=== PATIENT | male | born 1940 | race Caucasian/White ===

== ENCOUNTER 2018-08-04 13:20 | Outpatient (CLI) | payer BC, SELFPAY ==
[2018-08-05 09:22] LABS: PSA, Diagnostic 0.3 ng/ml (0-6.5)
== END 2018-08-04 13:40 ==
PROVIDERS: PCP Family Medicine; Visit Provider Nurse Practitioner
DX: C61 Malignant neoplasm of prostate (principal)
CPT/HCPCS: 36415; 84153

== ENCOUNTER 2018-08-24 01:17 | Outpatient (CLI) | payer BC, SELFPAY ==
--- NOTE | 2018-08-24 | PFT_ITS ---
PULMONARY FUNCTION TEST REPORT *Please see scanned documents for further information Patient identification - Marleny Martin DATE OF - 1940 DATE OF SERVICE - August 24, 2018 REQUESTING PROVIDER - Edgar Marie M.D. INTERPRETATION OF STUDY Spirometry shows no evidence of obstructive airways disease. No bronchodilator response. LUNG VOLUMES - Lung volumes show mild restriction. DIFFUSION CAPACITY- Normal. AIRWAY RESISTANCE - Normal. IMPRESSION Mild restrictive lung disease. Clinical correlation recommended. Radha Cantu M.D. MARION/honorio T - 08/26/2018 SEE SCANNED DOCUMENT IN THE EMR FOR DATA AND GRAPHS
[2018-08-24] MEDS: Albuterol HFA 18 GM 200 PUFF INH IH (10:58)
[2018-08-24] MEDS: Inhaler, Assist Device 1 EACH MC (10:58)
== END 2018-08-24 01:37 ==
PROVIDERS: PCP Family Medicine; Visit Provider Family Medicine
DX: J44.9 Chronic obstructive pulmonary disease, unspecified (principal)
CPT/HCPCS: 94060; 94150; 94726; 94729

== ENCOUNTER 2018-09-03 12:44 | Outpatient (CLI) | payer BC, OTHER, SELFPAY ==
--- NOTE | 2018-09-03 13:06 | HPE_ITS ---
Assessment and Plan (1) Right carpal tunnel syndrome: Current visit: Yes Status: Acute Plan: Reviewed surgery including surgical technique, recovery, benefits and risks including but not limited to risk of infection, blood clots, damage to soft tissue/nerves/blood vessels. After discussion of risks patient elects to continue with scheduling surgery. Educated patient if he develops worsening phlegm symptoms or if develops additional symptoms he should call the orthopedic office. At current physical presentation patient will continue to be scheduled for right ECTR with Dr. Pratt on September 09, 2018. Mr. Martin is a 78-year-old male who presents to clinic for his preoperative visit for his scheduled right ECTR with Dr. Pratt on September 09, 2018. He is right-hand dominant. Patient reports for the last year he has experienced constant right hand numbness which is located in the thumb, index finger, middle finger and the radial half of the ring finger. Patient also reports that he occasionally has a tingling pain that shoots from his wrist up through these fingers. He has tried daytime and nighttime bracing which provides mild relief of the tingling for the last 6 months. His symptoms are progressing and he has started to drop objects and has difficulty using utensils to eat. Patient also reports he is having difficulty doing other activities he enjoys such as being unable to bowl due to extreme tingling elicited when holding the bowling ball. Patient also reports he had bilateral hand tightness of the joints which typically resolves within minutes. He has had this symptom for the last 3-4 years but his right hand tightness has improved since he started wearing the brace. He denies any nighttime tingling sensation causing him to wake up. Patient has not had a nerve conduction study. Patient does report one injury occurring greater than 10 years ago when his grandson was trying to scale the roof he fell backwards and Marleny caught him which resulted in his hand being crushed by the weight. Patient went to the ER for the pain and was told he had a hairline fracture in his right side, he is unable to recall if the fracture was in the hand or wrist. Pertinent Surgical Information Discussed current productive cough with yellow sputum and wheeze with patient in detail. Symptoms have been ongoing for the past 4 days. Review of patient' s primary care chart shows patient has restrictive lung disease with basilar rails at baseline for many years. His recent PFTs from August 24, 2018 show mild restrictive lung disease. Patient does report he has occasional dry cough at baseline. Throughout review of systems he denies any other associated symptoms. Although patient likely has a viral cold his symptoms were discussed with anesthesia. Upon discussion with anesthesia patient will continue to be scheduled for right ECTR unless develops worsening symptoms or additional symptoms. As per patient chart has listed allergy to ATUL inhibitors, however he denies any known allergies to medication. Denies past medical history of: stroke, cardiac issues, angina, asthma, sleep apnea, liver issues, hepatitis, gastrointestinal issues, ulcers, hyperlipidemia , seizures, migraines, anxiety, depression, diabetes, autoimmune disorders, thyroid issues Denies prior complications from surgery or anesthesia. Review of Systems Constitutional Denies fever(s), Denies frequent falls and Denies headache(s) Eyes Denies change in vision ENT Denies ear discharge, Denies otalgia, Denies headache(s), Denies epistaxis, Denies nasal congestion, Denies nasal discharge, Denies sinus pressure and Denies sore throat Cardiovascular Denies chest pain, Denies rapid heart rate, Denies irregular heart rhythm, Denies dyspnea, Denies dyspnea on exertion and Denies slow heart rate Respiratory Reports cough, Reports excessive phlegm production (Yellow), Denies pain with cough, Denies dyspnea, Denies dyspnea on exertion and Reports wheezing Gastrointestinal Denies abdominal pain, Denies melena, Denies hematochezia, Denies constipation, Denies diarrhea, Denies nausea and Denies vomiting Genitourinary Denies hematuria, Denies dysuria and Denies urinary urgency Musculoskeletal Reports as per HPI, Reports numbness and Reports tingling Neurologic Denies frequent falls, Denies headache(s), Reports numbness and Reports tingling Psychiatric Denies anxiety and Denies depression Allergic/Immunologic Reports wheezing PFSH Family History Mother No problems noted. Father Cardiovascular disease Brother No problems noted. Medical History Right carpal tunnel syndrome (Acute) History of prostate cancer (Chronic) CKD (chronic kidney disease), stage III (Chronic) Thrombocytopenia (Chronic) Rales (Chronic) Restrictive lung disease (Chronic) Hypertension (Chronic) Social History marital status: current occupational status: employed current occupation: [employer] Smoking/Tobacco Use Status: Never alcohol intake: former year quit: 1994 substance use type: does not use Surgical History S/P radiation therapy (Resolved) Meds Home Medications Medication Instructions Recorded Confirmed Type aspirin 81 mg PO DAILY tab-cap 02/25/17 09/03/18 History losartan 100 mg PO DAILY tab-cap 02/25/17 09/03/18 History magnesium oxide 250 mg PO DAILY AM 02/25/17 09/03/18 History omeprazole 20 mg PO DAILY tab-cap 02/25/17 09/03/18 History albuterol sulfate [ProAir HFA] 2 puff INHALATION Q6H PRN inhaler 04/03/1709/03 History acetaminophen [Tylenol Extra 1,000 mg PO Q6H PRN 09/03/18 09/03/18 History Strength] calcium carbonate-vitamin D3 1 cap PO DAILY 09/03/18 09/03/18 History [Calcium 600 + D(3)] Allergies Allergy/AdvReac Type Severity Reaction Status Date / Time No Known Allergies Allergy Unverified 09/03/18 15:51 Exam Const General: cooperative and no acute distress HENMT Head: normal to inspection, normocephalic and atraumatic Ears: external ears normal General nose exam: external nose normal and no nasal discharge Face and sinus: face symmetric Mouth: oral mucosae normal, lip normal, tongue normal and moist mucous membranes Teeth and gingiva: dentition normal Throat: posterior oropharynx normal Eyes General: appearance normal, both eyes and all related structures Pupils: PERRL EOM: EOM intact bilaterally Neck Neck: trachea midline Carotids: normal carotid upstroke Lymphatic: no lymphadenopathy noted Resp Effort & Inspection: normal respiratory effort, able to speak in complete sentences and no nasal flaring Auscultation: not clear to auscultation bilaterally, rales (Noted on posterior aspect of chest) bilaterally, no rhonchi and wheezes Cardio Heart Sounds: S1 normal, S2 normal, no murmurs, no rubs and no other Pulses: radial pulses present bilaterally GI Palpation: soft, no hepatosplenomegaly and nontender Auscultation: normal bowel sounds Skin General skin exam: no rashes or lesions noted Extrem Other: Right hand examination: Thenar atrophy is noted on right compared to contralateral side. Decreased sensation to light touch in median nerve distribution. Decreased strength with thumb to index finger opposition compared to contralateral side . Compression of median nerve for 60 seconds elicited tingling in median nerve distribution. Phalen's test did not elicit tingling. Tinel's sign elicited tingling symptoms. Motor function ulnar nerve intact to contralateral side.
== END 2018-09-03 13:04 ==
PROVIDERS: PCP Family Medicine; Visit Provider Orthopaedic Surgery
DX: G56.01 Carpal tunnel syndrome, right upper limb (principal); Z01.818 Encounter for other preprocedural examination
CPT/HCPCS: NC

== ENCOUNTER 2018-09-09 13:31 | Day surgery (SDC) | payer BC, OTHER, SELFPAY ==
[2018-09-09 14:00] VITALS: BP 148/78; PULSE 73; RESP 18; TEMP 36.8; O2SAT 96
[2018-09-09] MEDS: Lactated Ringers 1,000 ML 80 ML IV (14:30)
--- NOTE | 2018-09-09 16:43 | PDOC.DSDIS_ITS ---
Discharge Plan Disposition Patient Disposition: HOME Condition: Good Discharge Details Reason For Visit: (R) CTS Attending Provider: Mart Pratt Primary Care Provider: Edgar Marie Home Meds and New Rx's Prescriptions: Continue losartan 50 MG tablet 100 mg PO DAILY RF: 0 omeprazole 20 MG capsule,delayed release(DR/EC) 20 mg PO DAILY RF: 0 aspirin 81 MG tablet,chewable 81 mg PO DAILY RF: 0 magnesium oxide 250 MG tablet 250 mg PO DAILY AM RF: 0 albuterol sulfate [ProAir HFA] 8.5 GM HFA aerosol inhaler 2 puff Inhalation Q6H PRN RF: 0 calcium carbonate-vitamin D3 [Calcium 600 + D(3)] 600 mg calcium- 200 unit Capsule 1 cap PO DAILY RF: 0 acetaminophen [Tylenol Extra Strength] 500 mg Tablet 1,000 mg PO Q6H PRNRF: 0 Discharge Instructions Additional Instructions: Elevate R hand above heart level as much as possible overnite tonite. Wiggle fingers R hand 10 times/hour when awake to prevent swelling. Your fingers may stay numb for 24 hours due to nerve block I put in to decrease post-op pain. Remove splint AND dressings after 48 hours and begin to move R wrist. May shower or bathe and get incision wet after you remove dressings. Leave incision uncovered when it is dry and sealed. Use R hand as much as your discomfort allows. Take tylenol or ibuprofen for pain, if needed. Return to 's office in 10-14 days. Referrals: Mart Pratt MD [ [facility] STAFF PHYSICIAN] - (F/U in 10-14 days. Call 's office tomorrow to make appointment.) Equipment/Supplies: Splint Activity:: Activity as Tolerated Remove Dressings/Wound Care:: 48 hours Shower/Bathe:: 48 hours Diet:: As Tolerated Discharge Orders Discharge Orders: Discharge Order (Routine); Ordered 09/09/18 Ordered By: Mart Pratt DS: Diagnosis Discharge Diagnosis (1) Right carpal tunnel syndrome: Start date: 09/09/18 Start time: 16:43 Status: Acute
[2018-09-09 17:15] VITALS: BP 159/76; PULSE 76; RESP 18; TEMP 36.6; O2SAT 96
--- NOTE | 2018-09-09 21:34 | ROE_ITS ---
DATE OF PROCEDURE: September 09, 2018 PREOPERATIVE DIAGNOSIS: Carpal tunnel syndrome, right. POSTOPERATIVE DIAGNOSIS: Carpal tunnel syndrome, right. PROCEDURE: Endoscopic carpal tunnel release on the right. SURGEON: Mart Pratt M.D. ANESTHESIA: IV regional. INDICATIONS: This is a 78-year-old white male who has severe carpal tunnel syndrome on the right of many months' duration. He has developed significant thenar atrophy. Carpal tunnel release was recom mended to prevent progression of his thenar weakness and to alleviate his pain and numbness in the me ricarda nerve distribution of the right hand. The risks and complications of the procedure were explain ed to the patient in detail preoperatively. PROCEDURE: The patient was taken to the Operating Room on 09/09/18 and placed supine on the operatin g table. IV regional anesthesia was administered to the right upper extremity. Once good anesthesia was obtained, the right hand, wrist, and forearm were prepped and draped free in the usual sterile f ashion. A transverse incision was made in line with the proximal flexion crease of the wrist, beginning at th e flexor carpi radialis and extending to the flexor carpi ulnaris. The incision was carried down int o the fascia and the subcutaneous veins were cauterized. A distally-based fascial flap was raised to gain access to the carpal canal. A synovial reflector was then used to free up any adhesions to the undersurface of the volar carpal l igament. A series of obturators were inserted to make room for the endoscope. The Tutu endoscope bl shilo device was then inserted into the carpal canal and advanced until the distal edge of the volar ca rpal ligament was clearly visualized. At this point the trigger was depressed, elevating the blade, and the elevated blade was brought out from distal to proximal through the incision, transecting the volar carpal ligament and decompressing the median nerve. Littler scissors were then used to perform a subcu fasciotomy for a distance of about 2 inches proximal to the incision. The patient was noted to have an abnormal distal flexor muscle in the wrist. At this point, the wound margins were infiltrated with 0.5% Marcaine with epinephrine solution and a median nerve block was performed with 0.5% Marcaine with epinephrine solution for postoperative analg esia. The skin edges were approximated with two horizontal mattress sutures of #4-0 nylon suture mat erial. The wound was dressed with Xeroform gauze, sterile gauze 4x4s, wrapped with a 4-inch Kerlix b andage, and then wrapped with a 3-inch Dwayne bandage. A commercial cock-up splint was applied over the dressings. The patient's IV regional anesthesia was reversed without complications. He was dischar ged to Recovery in good condition. The patient was discharged home from the Day Surgery Unit when fully recovered from his IV regional a nesthesia. He was given instructions to elevate his right hand above heart level as much as possible overnight tonight. 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 He is encoura ged to wiggle his fingers 10 times an hour while awake to prevent stiffness and swelling. He is to r emove his dressings and splint and begin to move his right wrist after 48 hours. He may shower or ba the and get his incision wet after 48 hours. He may use his right hand as much as discomfort allows. He is to leave the incision uncovered when it is dry and sealed. He will take Tylenol or ibuprofen for pain if needed. He will follow up in Dr. Pratt's office in 10 to 14 days.
== END 2018-09-09 17:28 | disposition home or self-care (01) ==
PROVIDERS: PCP Family Medicine; Visit Provider Orthopaedic Surgery
PROC: 01N54ZZ Release Median Nerve, Percutaneous Endoscopic Approach (ICD-10-PCS; CPT 29848; principal; 2018-09-09 16:00)
DX: G56.01 Carpal tunnel syndrome, right upper limb (principal)
CPT/HCPCS: 29848; J0690; L3908

== ENCOUNTER 2019-01-26 15:09 | Outpatient (CLI) | payer BC, OTHER, SELFPAY ==
[2019-01-26 15:31] LABS: HCT 34.8 % (40.0-50.0); HGB 11.5 g/dL (13.5-17.5); Mean Corpuscular Volume 87.7 fL (80-95); Mean Platelet Volume 11.1 fL (8.0-11.0); RBC 3.97 m/cumm (4.50-6.00); RBC Distribution Width 13.4 % (11.8-14.1); White Blood Cell Count 4.21 k/cumm (4.4-10.8)
[2019-01-26 15:45] LABS: Platelet Count 92 x1000/uL (130-400)
[2019-01-26 17:33] LABS: ALT 32 U/L (12-78); AST 26 U/L (15-37); Alkaline Phosphatase 141 U/L (46-116); Anion Gap 10.8 mmol/L (3-11); BUN 17 mg/dL (7-18); Bilirubin, Total 0.4 mg/dL (0.2-1.0); CO2 23.2 mmol/L (21.0-32.0); CREATININE 1.47 mg/dL (0.70-1.30); Calcium 8.5 mg/dL (8.5-10.1); Chloride 105 mmol/L (98-107); Estimated GFR 46.57 (mL/min/1.73m2); Glucose 155 mg/dL (70-100); Sodium 139 mmol/L (136-145); Total Protein 8.1 g/dL (6.4-8.2); Vitamin B12 466 pg/mL (193-986)
[2019-01-26 18:07] LABS: PHOSPHORUS 2.6 mg/dL (2.6-4.7)
[2019-01-27 10:28] LABS: Parathyroid Hormone,Intact 78 pg/ml (19-88)
== END 2019-01-26 15:29 ==
PROVIDERS: PCP Family Medicine; Visit Provider Family Medicine
DX: D69.6 Thrombocytopenia, unspecified (principal); I10 Essential (primary) hypertension; N18.3 Chronic kidney disease, stage 3 (moderate)
CPT/HCPCS: 36415; 80053; 85027; 82607; 83735; 83970; 84100

== ENCOUNTER 2019-02-11 17:01 | Inpatient (IN) | payer BC, OTHER, SELFPAY ==
[2019-02-11] VITALS (29 sets, daily range): BP systolic 127–146; BP diastolic 57–73; PULSE 84–124; RESP 16–37; TEMP 36.7–38.5; O2SAT 93–98
--- NOTE | 2019-02-11 17:28 | DI.RAD_ITS ---
SYMPTOM/DIAGNOSIS: COUGH, WHEEZE, CRACKLES, FEVER FRONTAL AND LATERAL CHEST: Comparison is made with 01/21/18. There is poor inspiration. Heart size and pulmonary vasculature appear stable. There are chronic interstitial changes in the lungs, particularly on the right. There do however appear to be increased lung markings, particularly in the mid and lower lobes, left greater than right when compared to the prior examination. No effusions or pneumothoraces are identified. Stable degenerative changes are seen in the spine. IMPRESSION: Bilateral pulmonary infiltrates. This may in part be due to the low lung volumes but atelectasis or pneumonia cannot be excluded. Please correlate clinically.
--- NOTE | 2019-02-11 17:41 | W.ED.GENAD ---
Discharge Plan Disposition Patient Disposition: [facility] INPATIENT Condition: Stable Discharge Details Chief Complaint: RespSymp Clinical Impression: Community acquired pneumonia, Fever Admit Date/Time: 02/11/19 19:44 Admit Provider: Dominick Rodgers Attending Provider: Dominick Rodgers Primary Care Provider: Edgar Marie ED Provider: Saúl Parikh Discharge Data Discharge Date/Time-TO BE ENTERED AT DEPARTURE: 02/11/19 20:26 Medical Decision Making This is a 78-year-old male with past medical history of chronic kidney disease and COPD who presents today for evaluation of cough for the last week, he states that it is been non- productive, he denies any fever, chills, chest pain, or shortness of breath. He denies any other complaints. Physical exam demonstrates mild wheeze throughout with minimal crackles. Initial temperature was normal however on palpation he felt warm and we did get an oral which revealed a temperature of 38.5. Oxygen saturations are 93% with mild to moderate effort breathing. Initial heart rate was in the 120s, however he came down actually to 106. We will start some IV fluids and rehydrate. I am concern for potential community-acquired pneumonia, we will evaluate with chest x-ray labs and blood cultures. The patient has no clinically historical risk factors for pulmonary embolism, and with no pleuritic chest pain or chest pain at all, feel that PE is less likely. Feel infectious etiology is more likely concerning component. Patient's x-ray has returned, and on my inspection there is evidence of bilateral pulmonary infiltrates. Virtual radiology report is read as negative, however with the patient's clinical presentation and my described findings I am concerned that he is suffering from infectious pneumonia. We will start him on Rocephin and azithromycin. I did contact Dr. Rodgers and discussed the case with him. He agrees with the current assessment and plan. The patient will be admitted to [facility]. I have extensively reviewed the treatment plan with the patient. I have addressed all patient concerns at this time. I have also discussed the plan with the admitting physician and they agree with the current assessment and plan and have agreed to assume responsibility for the patient. All parties demonstrate verbal understanding and agreement with our assessment and plan at this time. Follow-up and read by our in-house radiologist has returned positive for bilateral pulmonary infiltrates. EKG 17: 30 Rate 113, IA 134, QTc 411, QRS 82, sinus tachycardia, no significant ST elevations or depressions, no T wave inversions FRONTAL AND LATERAL CHEST: Comparison is made with 01/21/18. There is poor inspiration. Heart size and pulmonary vasculature appear stable. There are chronic interstitial changes in the lungs, particularly on the right. There do however appear to be increased lung markings, particularly in the mid and lower lobes, left greater than right when compared to the prior examination. No effusions or pneumothoraces are identified. Stable degenerative changes are seen in the spine. IMPRESSION: Bilateral pulmonary infiltrates. This may in part be due to the low lung volumes but atelectasis or pneumonia cannot be excluded. Please correlate clinically. HPI General Date/Time Provider Initiated Documentation: 02/11/19 17:19. HPI Narrative: This is a 78-year-old male with a past medical history of COPD, chronic kidney disease, who presents today for evaluation of cough for the last week, the cough is dry nonproductive peer he denies any chest pain, shortness of breath or pleuritic chest pain. He denies any fever or chills at home. He denies any nausea vomiting or diarrhea. He has been able to eat and drink well. He denies any headache, neck pain, abdominal pain. He denies any recent antibiotics, or any recent inpatient admission. Denies PE risk factors such as recent long car rides, immobilization, recent surgery, prior history of DVT or PE, family history of PE or DVT, morbid obesity, exogenous estrogen and smoking, hemoptysis, history of cancer. Related Data Home Medications Medication Instructions Recorded Confirmed aspirin 81 mg PO DAILY tab-cap 02/25/17 02/11/19 losartan 100 mg PO DAILY tab-cap 02/25/17 02/11/19 magnesium oxide 250 mg PO DAILY AM 02/25/17 02/11/19 omeprazole 20 mg PO DAILY tab-cap 02/25/17 02/11/19 albuterol sulfate [ProAir HFA] 2 puff INHALATION Q6H PRN inhaler 04/03/17 02/11/19 Calcium 600 + D(3) 1 cap PO DAILY 09/03/18 02/11/19 acetaminophen [Tylenol Extra 1,000 mg PO Q6H PRN 09/03/18 02/11/19 Strength] Allergies Allergy/AdvReac Type Severity Reaction Status Date / Time No Known Allergies Allergy Verified 02/11/19 17:11 General Stated Complaint: RespSymp MANGO: 3 Review of Systems Review of Systems All systems reviewed & are unremarkable except as noted in HPI and below PFSH Medical History History of prostate cancer (Chronic) CKD (chronic kidney disease), stage III (Chronic) Thrombocytopenia (Chronic) Rales (Chronic) Restrictive lung disease (Chronic) Hypertension (Chronic) Right carpal tunnel syndrome (Resolved) Surgical History S/P radiation therapy (Resolved) S/P endoscopic carpal tunnel release (Resolved 09/09/18) Family History Mother No problems noted. Father Cardiovascular disease Brother No problems noted. Social History Smoking/Tobacco Use Status: Never Alcohol Intake: former Year quit: 1994 Drug use: Never Substance use type: does not use current occupation: [employer] Do you feel safe in your relationship?: Yes Exam Narrative Exam Narrative: 1.Const: Well-nourished, Well-developed, appearing stated age 2.Eyes: PERRL, no conjunctival injection, and symmetrical lids. 3.ENT: Atraumatic external nose and ears. Moist MM. Neck: Symmetric, trachea midline, No thyromegaly. Patient demonstrates good movement of cervical neck. There is no nuchal rigidity, no nuchal tenderness. Patient is able to flex the neck without any difficulty or significant pain. Negative Kernig's and Brudzinski sign. 4.CVS: +S1/S2, No murmurs or gallops. Peripheral pulses 2+ and equal in all extremities. Brisk capillary refill in all extremities. 5.RESP: Unlabored respiratory effort. Wheezes and crackles in the bases. Slight decreased lung sounds throughout. 6.GI: Soft, Nontender/Nondistended, No hepatosplenomegaly. No guarding or rebound. 7.MSK: Normocephalic/Atraumatic, Extremities w/o deformity or ttp No cyanosis or clubbing, Normal movement of all extremities, no calf tenderness. 8.Skin: Warm, Dry. No rashes or lesions. 9.Neuro: flaker tender II-XII grossly intact. Sensation grossly intact, no focal neurologic deficits. 10.Psych: (AAO) x3. Appropriate mood and affect Course Vital Signs Temperature 37.5 C 02/11/19 17:08 Pulse 124 H 02/11/19 17:08 Respiratory Rate 16 02/11/19 17:08 Blood Pressure 132/63 02/11/19 17:08 Pulse Oximetry 93 L 02/11/19 17:08 Temperature 37.5 C 02/11/19 17:08 Temperature Source Skin 02/11/19 17:08 Pulse 124 H 02/11/19 17:08 Respiratory Rate 16 02/11/19 17:08 Respiratory Effort 02/11/19 17:17 Blood Pressure 132/63 02/11/19 17:08 Blood Pressure Position Sitting 02/11/19 17:08 Pulse Oximetry 93 L 02/11/19 17:08 Oxygen Delivery Method Room Air 02/11/19 17:08 Oxygen Flow Rate 0 02/11/19 17:08 Lab/Test Results Lab/Test Results: 02/11/19 17:28 Blood Blood Culture - Pending 02/11/19 17:28 Blood Blood Culture - Pending
--- NOTE | 2019-02-11 17:50 | ED.GENADUL_ITS ---
Discharge Plan Disposition Patient Disposition: [facility] INPATIENT Condition: Stable Discharge Details Chief Complaint: RespSymp Clinical Impression: Community acquired pneumonia, Fever Admit Date/Time: 02/11/19 19:44 Admit Provider: Dominick Rodgers Attending Provider: Dominick Rodgers Primary Care Provider: Edgar Marie ED Provider: Saúl Parikh Discharge Data Discharge Date/Time-TO BE ENTERED AT DEPARTURE: 02/11/19 20:26 Medical Decision Making This is a 78-year-old male with past medical history of chronic kidney disease and COPD who presents today for evaluation of cough for the last week, he states that it is been non- productive, he denies any fever, chills, chest pain, or shortness of breath. He denies any other complaints. Physical exam demonstrates mild wheeze throughout with minimal crackles. Initial temperature was normal however on palpation he felt warm and we did get an oral which revealed a temperature of 38.5. Oxygen saturations are 93% with mild to moderate effort breathing. Initial heart rate was in the 120s, however he came down actually to 106. We will start some IV fluids and rehydrate. I am concern for potential community-acquired pneumonia, we will evaluate with chest x-ray labs and blood cultures. The patient has no clinically historical risk factors for pulmonary embolism, and with no pleuritic chest pain or chest pain at all, feel that PE is less likely. Feel infectious etiology is more likely concerning component. Patient's x-ray has returned, and on my inspection there is evidence of bilateral pulmonary infiltrates. Virtual radiology report is read as negative, however with the patient's clinical presentation and my described findings I am concerned that he is suffering from infectious pneumonia. We will start him on Rocephin and azithromycin. I did contact Dr. Rodgers and discussed the case with him. He agrees with the current assessment and plan. The patient will be admitted to [facility]. I have extensively reviewed the treatment plan with the patient. I have addressed all patient concerns at this time. I have also discussed the plan with the admitting physician and they agree with the current assessment and plan and have agreed to assume responsibility for the patient. All parties demonstrate verbal understanding and agreement with our assessment and plan at this time. Follow-up and read by our in-house radiologist has returned positive for bilateral pulmonary infiltrates. EKG 17: 30 Rate 113, [place] 134, QTc 411, QRS 82, sinus tachycardia, no significant ST elevations or depressions, no T wave inversions FRONTAL AND LATERAL CHEST: Comparison is made with 01/21/18. There is poor inspiration. Heart size and pulmonary vasculature appear stable. There are chronic interstitial changes in the lungs, particularly on the right. There do however appear to be increased lung markings, particularly in the mid and lower lobes, left greater than right when compared to the prior examination. No effusions or pneumothoraces are identified. Stable degenerative changes are seen in the spine. IMPRESSION: Bilateral pulmonary infiltrates. This may in part be due to the low lung volumes but atelectasis or pneumonia cannot be excluded. Please correlate clinically. HPI General Date/Time Provider Initiated Documentation: 02/11/19 17:19 . HPI Narrative: This is a 78-year-old male with a past medical history of COPD, chronic kidney disease, who presents today for evaluation of cough for the last week, the cough is dry nonproductive peer he denies any chest pain, shortness of breath or pleuritic chest pain. He denies any fever or chills at home. He denies any nausea vomiting or diarrhea. He has been able to eat and drink well. He denies any headache, neck pain, abdominal pain. He denies any recent antibiotics, or any recent inpatient admission. Denies PE risk factors such as recent long car rides, immobilization, recent surgery, prior history of DVT or PE, family history of PE or DVT, morbid obesity, exogenous estrogen and smoking, hemoptysis, history of cancer. Related Data Home Medications Medication Instructions Recorded Confirmed aspirin 81 mg PO DAILY tab-cap 02/25/17 02/11/19 losartan 100 mg PO DAILY tab-cap 02/25/17 02/11/19 magnesium oxide 250 mg PO DAILY AM 02/25/17 02/11/19 omeprazole 20 mg PO DAILY tab-cap 02/25/17 02/11/19 albuterol sulfate [ProAir HFA] 2 puff INHALATION Q6H PRN inhaler 04/03/17 02/11/19 Calcium 600 + D(3) 1 cap PO DAILY 09/03/18 02/11/19 acetaminophen [Tylenol Extra 1,000 mg PO Q6H PRN 09/03/18 02/11/19 Strength] Allergies Allergy/AdvReac Type Severity Reaction Status Date / Time No Known Allergies Allergy Verified 02/11/19 17:11 General Stated Complaint: RespSymp MANGO: 3 Review of Systems Review of Systems All systems reviewed & are unremarkable except as noted in HPI and below PFSH Medical History History of prostate cancer (Chronic) CKD (chronic kidney disease), stage III (Chronic) Thrombocytopenia (Chronic) Rales (Chronic) Restrictive lung disease (Chronic) Hypertension (Chronic) Right carpal tunnel syndrome (Resolved) Surgical History S/P radiation therapy (Resolved) S/P endoscopic carpal tunnel release (Resolved 09/09/18) Family History Mother No problems noted. Father Cardiovascular disease Brother No problems noted. Social History Smoking/Tobacco Use Status: Never Alcohol Intake: former Year quit: 1994 Drug use: Never Substance use type: does not use current occupation: [employer] Do you feel safe in your relationship?: Yes Exam Narrative Exam Narrative: 1.Const: Well-nourished, Well-developed, appearing stated age 2.Eyes: PERRL, no conjunctival injection, and symmetrical lids. 3.ENT: Atraumatic external nose and ears. Moist MM. Neck: Symmetric, trachea midline, No thyromegaly. Patient demonstrates good movement of cervical neck. There is no nuchal rigidity, no nuchal tenderness. Patient is able to flex the neck without any difficulty or significant pain. Negative Kernig's and Brudzinski sign. 4.CVS: +S1/S2, No murmurs or gallops. Peripheral pulses 2+ and equal in all extremities. Brisk capillary refill in all extremities. 5.RESP: Unlabored respiratory effort. Wheezes and crackles in the bases. Slight decreased lung sounds throughout. 6.GI: Soft, Nontender/Nondistended, No hepatosplenomegaly. No guarding or rebound. 7.MSK: Normocephalic/Atraumatic, Extremities w/o deformity or ttp No cyanosis or clubbing, Normal movement of all extremities, no calf tenderness. 8.Skin: Warm, Dry. No rashes or lesions. 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 Sensation grossly intact, no focal ne urologic deficits. 10.Psych: (AAO) x3. Appropriate mood and affect Course Vital Signs Temperature 37.5 C 02/11/19 17:08 Pulse 124 H 02/11/19 17:08 Respiratory Rate 16 02/11/19 17:08 Blood Pressure 132/63 02/11/19 17:08 Pulse Oximetry 93 L 02/11/19 17:08 Temperature 37.5 C 02/11/19 17:08 Temperature Source Skin 02/11/19 17:08 Pulse 124 H 02/11/19 17:08 Respiratory Rate 16 02/11/19 17:08 Respiratory Effort 02/11/19 17:17 Blood Pressure 132/63 02/11/19 17:08 Blood Pressure Position Sitting 02/11/19 17:08 Pulse Oximetry 93 L 02/11/19 17:08 Oxygen Delivery Method Room Air 02/11/19 17:08 Oxygen Flow Rate 0 02/11/19 17:08 Lab/Test Results Lab/Test Results: 02/11/19 17:28 Blood Blood Culture - Pending 02/11/19 17:28 Blood Blood Culture - Pending
[2019-02-11 17:57] LABS: Lactate-non-spesis 1.7 mmol/l (0.6-1.4)
[2019-02-11 17:58] LABS: Abs Immature Grans 0.01 k/cumm (0.0-0.09); Absolute Basophil Count 0.02 k/cumm (0.0-0.2); Absolute Eosinophil Count 0.07 k/cumm (0.0-0.7); Absolute Lymphocyte Count 0.34 k/cumm (1.2-3.4); Absolute Monocyte Count 0.29 k/cumm (0.11-0.7); Absolute Neutrophil Count 3.46 k/cumm (1.2-6.7); Basophils % 0.5; Eosinophils % 1.7; HCT 34.6 % (40.0-50.0); HGB 11.3 g/dL (13.5-17.5); Immature Grans % 0.2; Lymphocytes % 8.1; Mean Corp. HGB Concentration 32.7 g/dL (32.0-36.0); Mean Corpuscular Hemoglobin 28.3 pg (27.0-33.0); Mean Corpuscular Volume 86.5 fL (80-95); Mean Platelet Volume 11.4 fL (8.0-11.0); Monocytes % 6.9; Neutrophils % 82.6; RBC Distribution Width 13.4 % (11.8-14.1); White Blood Cell Count 4.19 k/cumm (4.4-10.8)
[2019-02-11 18:10] LABS: Platelet Count 91 x1000/uL (130-400)
[2019-02-11] MEDS: Acetaminophen 500 MG TAB 1000 MG PO (18:16)
[2019-02-11] MEDS: Albuterol/Ipratropium 3 ML UPD VIAL UPD (18:17)
[2019-02-11] MEDS: Normal Saline 1,000 ML 1000 ML IV (18:20)
[2019-02-11] MEDS: methylPREDNISolone SUCC 125 MG VIAL IVP (18:21)
[2019-02-11 18:22] LABS: ALT 42 U/L (12-78); AST 43 U/L (15-37); Alkaline Phosphatase 155 U/L (46-116); Anion Gap 13.3 mmol/L (3-11); BUN 20 mg/dL (7-18); Bilirubin, Total 0.6 mg/dL (0.2-1.0); CO2 22.7 mmol/L (21.0-32.0); CREATININE 1.63 mg/dL (0.70-1.30); Calcium 8.2 mg/dL (8.5-10.1); Chloride 103 mmol/L (98-107); Estimated GFR 41.34 (mL/min/1.73m2); Glucose 130 mg/dL (70-100); Potassium 3.9 mmol/L (3.5-5.1); Sodium 139 mmol/L (136-145); TSH (W/Ref FT4) 1.57 uIU/mL (0.358-3.74); Total Protein 8.7 g/dL (6.4-8.2)
[2019-02-11 18:42] LABS: Troponin I < 0.02 ng/mL (0.00-0.06)
--- NOTE | 2019-02-11 19:29 | DI.VRAD_ITS ---
EXAM: XR Chest, 2 Views EXAM DATE/TIME: 02/11/2019 5:30 PM CLINICAL HISTORY: 78 years old, male; Signs and symptoms; Cough and wheezing TECHNIQUE: Imaging protocol: XR of the chest, 2 views. COMPARISON: CR CHEST 2 VIEWS PA,LAT 01/21/2018 6:16 PM FINDINGS: Lungs: MID to lower lung zone interstitial thickening appears slightly more prominent than on the previous study, which could be related to a slight decrease in lung volumes. No new deb air space consolidation to suggest pneumonia. Pleural space: No pleural effusion. No pneumothorax. Heart/Mediastinum: No cardiomegaly. Bones/joints: No acute fracture. IMPRESSION: 1. MID to lower lung zone interstitial thickening appears slightly more prominent than on the previous study, which could be related to a slight decrease in lung volumes. 2. No new deb air space consolidation to suggest pneumonia. Dictated and Authenticated by: Reena Soliz MD. Ordering:KARIN Hays MD
[2019-02-11 19:48] LABS: Bilirubin Negative (Negative); Blood Negative (Negative); Clarity Clear; Glucose Negative (Negative); Ketones Trace mg/dL (Negative); Leukocyte Esterase Negative (Negative); Nitrite Negative (Negative); pH 5.5 (5-8)
[2019-02-11 20:05] LABS: Bacteria Negative HPF (Negative); C & S Indicated? No; Casts Negative LPF (Negative); Crystals Negative HPF (Negative); Epithelial Cells Negative HPF (Negative); Mucus Negative (Negative); Other Cells Negative (Negative); RBC 0-2 (0-2)
[2019-02-11] MEDS: cefTRIAXone 2 GM/50 ML BAG IVPB (20:11)
[2019-02-11 20:49] LABS: Magnesium 1.8 mg/dL (1.8-2.4)
[2019-02-11] MEDS: Lactated Ringers 1,000 ML 100 ML IV (20:58)
[2019-02-11 21:13] LABS: Lactate 1.6 mmol/L (0.6-1.4)
[2019-02-11] MEDS: guaiFENesin 600 MG TABCR 1200 MG PO (21:56)
[2019-02-11] MEDS: Enoxaparin 30 MG/0.3 ML SYR SC (21:56)
[2019-02-11] MEDS: Benzonatate 200 MG CAP PO (21:56)
--- NOTE | 2019-02-11 22:29 | W.PM.HP.N ---
Date of service: 02/11/19 Time of Service: 22:29 Assessment and Plan (1) Community acquired pneumonia of both lungs: Current visit: Yes Status: Acute continue Ceftriaxone and Azithromycin along w/ iv corticosteroids. Use DuoNeb treatments on prn basis. He is not actively wheezing now and according to his PFT from 09/02/2018 he does not have obstructive lung disease and has no significant immediate response to bronchodilators. Howver, clinically he has responded to the aerosol treatments given in the ER. He indicated that his PCP has him use albuterol MDI on a prn basis and has put him on another inhaler he uses daily (?Spiriva). He is up to date on his influenza vaccine and his screen was negative for influenza. However he has not had recent pneumonia vaccine in the past 10 years. I will request that he have Prevnar before discharge home. (2) Restrictive lung disease: Current visit: No Status: Chronic unclear as to the etiology of his restrictive lung disease. 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 The rales heard on exam today may be chronic, however the interstitial changes seen on CXR today have increased over the past year compared to prior CXR on 01/21/2018. he may need follow up high resolution CT of chest as outpatient and referral to pulmonary services. (3) CKD (chronic kidney disease), stage III: Current visit: No Status: Chronic He is about at his baseline renal function although is BUN is higher today compared to two weeks ago when it was 17. I think that he is a little dehydrated particularly in light of his episode of emesis earlier today and with the fever his insensible water losses are higher. Therefore, I have put him on iv fluids overnight. I will recheck his BMP in the a.m. (4) Hypertension: Current visit: No Status: Chronic blood pressure has been slightly higher than normal. I will continue his losartan and monitor his blood pressure. Given his elevated lactate he may be getting septic however for now his blood pressure has been stable. History of Present Illness Chief Complaint: cough, dyspnea Narrative: 78 yr old male non-smoker w/ restrictive lung disease, CKD, HTN who presented w/ 1-2 week hx of dry cough, dyspnea and today w/ chills and fever. 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 While taking one client to [facility] in [place] he began to shake w/ chills and he realized at that point that he ought to get checked out. On arrival to the ER he was noted to have fever of 38.5, and he was tachypneic at 30 breaths per minute and his oxygen saturation was borderline at 93%. Workup in the ER included routine labs, CXR, EKG and blood cultures. Labs were remarkable for mild leukopenia at 4100, anemia w/ Hb 11.3 gm and thrombocytopenia at 91,000 (he has had a hx of thrombocytopenia). CMP was remarkable for elevated BUN 20, creatinine of 1.63 and lactate of 1.7. Influenza screen was negative. CXR demonstrated increased mid to lower lung zone interstitial thickening more prominent that prior studies from 01/21/2018 but no deb air space consolidation. EKG demonstrated sinus tachycardia w/out ischemia. Blood cultures were taken and he was given Ceftriaxone and Azithromycin and Solumedrol along w/ DuoNeb treatments. He is now admitted to med/surg on observation for treatment of pneumonia. Review of Systems Constitutional Reports chills, Reports fatigue and Reports fever(s) Eyes Reports system reviewed and no additional complaints, except as docu ENT Denies otalgia, Denies nasal congestion, Denies nasal discharge, Denies post nasal drip, Denies sinus pain, Denies sinus pressure, Denies sore throat and Denies throat swelling Cardiovascular Reports system reviewed and no additional complaints, except as docu, Reports dyspnea and Reports dyspnea on exertion Respiratory Reports cough, Denies hemoptysis, Denies excessive phlegm production, Reports dyspnea, Reports dyspnea on exertion and Reports wheezing Gastrointestinal Reports nausea and Reports vomiting (one episode of vomiting after prolonged bout of coughing) Genitourinary Reports system reviewed and no additional complaints, except as docu Musculoskeletal Reports system reviewed and no additional complaints, except as docu Integumentary/Breasts Reports system reviewed and no additional complaints, except as docu Neurologic Reports system reviewed and no additional complaints, except as docu Endocrine Reports system reviewed and no additional complaints, except as docu and Reports fatigue Hematologic/Lymphatic Reports system reviewed and no additional complaints, except as docu Allergic/Immunologic Denies throat swelling and Reports wheezing [facility] Medical History History of prostate cancer (Chronic) CKD (chronic kidney disease), stage III (Chronic) Thrombocytopenia (Chronic) Rales (Chronic) Restrictive lung disease (Chronic) Hypertension (Chronic) Right carpal tunnel syndrome (Resolved) Surgical History S/P radiation therapy (Resolved) S/P endoscopic carpal tunnel release (Resolved 09/09/18) Family History Mother No problems noted. Father Cardiovascular disease Brother No problems noted. 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 Do you feel safe in your relationship?: Yes Meds Home Medications Medication Instructions Recorded Confirmed Type aspirin 81 mg PO DAILY tab-cap 02/25/17 02/11/19 History losartan 100 mg PO DAILY tab-cap 02/25/17 02/11/19 History magnesium oxide 250 mg PO DAILY AM 02/25/17 02/11/19 History omeprazole 20 mg PO DAILY tab-cap 02/25/17 02/11/19 History albuterol sulfate [ProAir HFA] 2 puff INHALATION Q6H PRN inhaler 04/03/17 02/11/19 History Calcium 600 + D(3) 1 cap PO DAILY 09/03/18 02/11/19 History acetaminophen [Tylenol Extra 1,000 mg PO Q6H PRN 09/03/18 02/11/19 History Strength] Allergies Allergy/AdvReac Type Severity Reaction Status Date / Time No Known Allergies Allergy Verified 02/11/19 17:11 Exam Const General: cooperative, no acute distress, well developed and ill appearing acutely Nutritional Appearance: overweight Orientation: alert, awake and oriented x3 HENMT Head: normal to inspection, no palpable skull fracture, normocephalic and atraumatic Ears: external ears normal, EAC abnormal excessive cerumen bilaterally and hearing grossly impaired bilaterally General nose exam: nares normal Face and sinus: normal facial exam Mouth: oral mucosae normal Teeth and gingiva: edentulous Neck Neck: normal visual inspection, full ROM, no lymphadenopathy and trachea midline Thyroid: thyroid normal Carotids: normal carotid upstroke Chest Chest: normal inspection of the chest and normal palpation of entire chest wall Resp Effort & Inspection: normal respiratory effort and able to speak in complete sentences Auscultation: rales bilaterally at the base Cardio Jugular venous pressure: no JVD Palpation: normal PMI Rate: regular rate Rhythm: regular rhythm Heart Sounds: S1 normal, S2 normal and normal, physiologic split S2 Pulses: normal peripheral pulses GI Inspection: normal to inspection and obesity Palpation: soft, no hepatosplenomegaly and nontender Percussion: normal to percussion Auscultation: normal bowel sounds Back/Spine/Pelvis Back: no CVA tenderness Cervical Spine: normal cervical lordosis Thoracic/Lumbar Spine: thoracic and lumbar spine normal to inspection Skin General skin exam: no rashes or lesions noted, elasticity normal and turgor normal Neuro General: alert, awake, oriented x3, moves all extremities and no focal motor deficits Cranial Nerves: PERRL, EOM intact bilaterally, no nystagmus, facial strength normal, tongue midline, gag reflex normal, able to rotate head bilaterally, able to elevate shoulders bilaterally and Symmetric palate elevation Cognition: normal cognition Speech: speech normal Motor: muscle tone normal throughout, strength 5/5 throughout and no movement abnormalities noted Sensory Exam: no sensory deficits noted Extrem General: normal to inspection, full ROM, normal capillary refill, no joint enlargement, no clubbing, cyanosis or edema, no pedal edema and no calf tenderness Psych Appearance: grossly normal Mental Status: mental status grossly normal Speech and Movement: speech and movement normal Mood: congruent mood Affect: normal affect Attitude: cooperative Thought Process: normal Thought Content: normal Insight: insight good Results Imaging Chest x-ray: report reviewed (FINDINGS: Lungs: MID to lower lung zone interstitial thickening appears slightly more prominent than on the previous study, which could be related to a slight decrease in lung volumes. No new deb air space consolidation to suggest pneumonia. Pleural space: No pleural effusion. No pneumotho) and image reviewed EKG: image reviewed (sinus tachycardia at 113 bpm; no ischemic ST-T changes) Labs : 02/11/19 17:45 02/11/19 17:45 Laboratory Results - last 24 hr 02/11/19 02/11/19 02/11/19 17:45 17:45 17:45 WBC 4.19 L RBC 4.00 L Hgb 11.3 L Hct 34.6 L MCV 86.5 MCH 28.3 MCHC 32.7 RDW 13.4 Plt Count 91 L MPV 11.4 H Immature Gran % 0.2 Neutrophils % 82.6 Lymphocytes % 8.1 Monocytes % 6.9 Eosinophils % 1.7 Basophils % 0.5 Absolute Neutrophils 3.46 Absolute Lymphocytes 0.34 L Absolute Monocytes 0.29 Absolute Eosinophils 0.07 Absolute Basophils 0.02 Sodium 139 Potassium 3.9 Chloride 103 Carbon Dioxide 22.7 Anion Gap 13.3 H BUN 20 H Creatinine 1.63 H Estimated GFR/1.73 m2 41.34 Glucose 130 H Lactate 1.7 H Calcium 8.2 L Magnesium Total Bilirubin 0.6 AST 43 H ALT 42 Alkaline Phosphatase 155 H Troponin I < 0.02 Total Protein 8.7 H Albumin 3.0 L TSH 1.57 Urine Color Urine Clarity Urine pH Ur Specific [place] Urine Protein Urine Ketones Urine Blood Urine Nitrite Urine Bilirubin Urine Urobilinogen Ur Leukocyte Esterase Urine RBC Urine WBC Ur Epithelial Cells Urine Crystals Urine Bacteria Urine Casts Urine Mucus Urine Other Ur Culture Indicated? Urine Glucose 02/11/19 02/11/19 02/11/19 17:45 19:41 21:00 WBC RBC Hgb Hct MCV MCH MCHC RDW Plt Count MPV Immature Gran % Neutrophils % Lymphocytes % Monocytes % Eosinophils % Basophils % Absolute Neutrophils Absolute Lymphocytes Absolute Monocytes Absolute Eosinophils Absolute Basophils Sodium Potassium Chloride Carbon Dioxide Anion Gap BUN Creatinine Estimated GFR/1.73 m2 Glucose Lactate 1.6 H Calcium Magnesium 1.8 Total Bilirubin AST ALT Alkaline Phosphatase Troponin I Total Protein Albumin TSH Urine Color Yellow Urine Clarity Clear Urine pH 5.5 Ur Specific [place] 1.020 Urine Protein 30 H Urine Ketones Trace H Urine Blood Negative Urine Nitrite Negative Urine Bilirubin Negative Urine Urobilinogen 1.0 H Ur Leukocyte Esterase Negative Urine RBC 0-2 Urine WBC 3-5 Ur Epithelial Cells Negative Urine Crystals Negative Urine Bacteria Negative Urine Casts Negative Urine Mucus Negative Urine Other Negative Ur Culture Indicated? No Urine Glucose Negative Last Vital Signs Temp 37.1 C 02/11/19 20:39 Pulse 107 H 02/11/19 20:39 Resp 22 02/11/19 20:39 BP 128/73 02/11/19 20:39 Pulse Ox 97 02/11/19 20:39
[2019-02-11] MEDS: AZITHROMYCIN 500 MG in Normal Saline 250 ML 250 MG IVPB (22:33)
[2019-02-12] VITALS (7 sets, daily range): BP systolic 112–156; BP diastolic 53–73; PULSE 69–79; RESP 4–20; TEMP 36–36.7; O2SAT 94–98
[2019-02-12] MEDS: Hydrocortisone SOD SUC. 100 MG VIAL 50 MG IVP ×5 (00:33→23:56)
[2019-02-12 08:19] LABS: Abs Immature Grans 0.01 k/cumm (0.0-0.09); Absolute Lymphocyte Count 0.39 k/cumm (1.2-3.4); Absolute Monocyte Count 0.13 k/cumm (0.11-0.7); Absolute Neutrophil Count 3.21 k/cumm (1.2-6.7); HCT 32.4 % (40.0-50.0); HGB 10.4 g/dL (13.5-17.5); Immature Grans % 0.3; Lymphocytes % 10.4; Mean Corp. HGB Concentration 32.1 g/dL (32.0-36.0); Mean Corpuscular Volume 87.1 fL (80-95); Mean Platelet Volume 12.4 fL (8.0-11.0); Monocytes % 3.5; Neutrophils % 85.8; RBC 3.72 m/cumm (4.50-6.00); RBC Distribution Width 13.6 % (11.8-14.1); White Blood Cell Count 3.74 k/cumm (4.4-10.8)
[2019-02-12 08:40] LABS: Diff Comment PLT Morph Reviewed; Platelet Count 63 x1000/uL (130-400); RBC Morphology Normal
[2019-02-12 08:42] LABS: Anion Gap 10.7 mmol/L (3-11); BUN 24 mg/dL (7-18); CO2 21.3 mmol/L (21.0-32.0); CREATININE 1.44 mg/dL (0.70-1.30); Chloride 107 mmol/L (98-107); Glucose 138 mg/dL (70-100); Potassium 4.2 mmol/L (3.5-5.1); Sodium 139 mmol/L (136-145)
[2019-02-12 09:06] LABS: Lactate-non-spesis 1.6 mmol/l (0.6-1.4)
[2019-02-12] MEDS: Losartan 50 MG TAB 100 MG PO (09:40)
[2019-02-12] MEDS: Benzonatate 200 MG CAP PO ×3 (09:40→19:52)
[2019-02-12] MEDS: Omeprazole 20 MG CAPCR PO (09:40)
[2019-02-12] MEDS: Magnesium Oxide 400 MG TAB PO (09:41)
[2019-02-12] MEDS: Calcium 600mg/Vit D 200U TAB 1 TAB PO (09:41)
[2019-02-12] MEDS: guaiFENesin 600 MG TABCR 1200 MG PO ×2 (09:41→19:52)
[2019-02-12] MEDS: Normal Saline Flush 10 ML SYR IVP ×4 (11:36→21:52)
--- NOTE | 2019-02-12 11:42 | PDOC.CMIN ---
Care Management Initial Assess REASON FOR HOSPITALIZATION:: Pneumonia PAST MEDICAL HISTORY/PAST SURGICAL HISTORY:: CAP of both lungs, s/p radiation therapy, hx of prostate CA, CKD Stage III, thrombocytopenia, rales, restrictive lung disease, hypertension, right carpal tunnel syndrome, s/p endoscopic carpal tunnel release PREVIOUS FUNCTIONAL STATUS/SOCIAL/FAMILY SUPPORTS:: Marleny is a 78 year old male who resides alone in [place], [place]. 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 He reports having a supportive neighbor and three step-daughters locally. CURRENT FUNCTIONAL STATUS:: Marleny is sitting up in his chair with O2 on, he is pleasant in interaction and forthcoming with information. ADVANCE DIRECTIVES:: None on file at [facility]. hospital personnel director: Taryn Gama-step daughter Has patient been provided with information about the portal?: Yes Did the patient sign up for the portal?: No CODE STATUS:: Full Code INSURANCE COVERAGE / FINANCIAL ISSUES:: /BS. [facility] CURRENT HOME/COMMUNITY SERVICES/EQUIPMENT:: No current services or equipment PRIMARY CARE PHYSICIAN:: Edgar Marie POTENTIAL DISCHARGE NEEDS:: Follow up appointments with PCP. PATIENT/FAMILY EDUCATION NEEDS:: Review of discharge instructions, discuss Ask Me Three. ANTICIPATED BARRIERS TO DISCHARGE:: None identified. TRANSPORTATION:: Via private vehicle with a friend/family. PLAN:: Marleny will return home when medically ready per MD. He will follow up with his PCP and plan of care as prescribed. He will transport home via private vehicle with family.
--- NOTE | 2019-02-12 14:26 | INITIAL_ITS ---
Care Management Initial Assess REASON FOR HOSPITALIZATION:: Pneumonia PAST MEDICAL HISTORY/PAST SURGICAL HISTORY:: CAP of both lungs, s/p radiation therapy, hx of prostate CA, CKD Stage III, thrombocytopenia, rales, restrictive lung disease, hypertension, right carpal tunnel syndrome, s/p endoscopic carpal tunnel release PREVIOUS FUNCTIONAL STATUS/SOCIAL/FAMILY SUPPORTS:: Marleny is a 78 year old male who resides alone in [place], [place]. 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 He reports having a supportive neighbor and three step-daughters locally. CURRENT FUNCTIONAL STATUS:: Marleny is sitting up in his chair with O2 on, he is pleasant in interaction and forthcoming with information. ADVANCE DIRECTIVES:: None on file at [facility]. store person: Taryn Gama-step daughter Has patient been provided with information about the portal?: Yes Did the patient sign up for the portal?: No CODE STATUS:: Full Code INSURANCE COVERAGE / FINANCIAL ISSUES:: /BS. [facility] CURRENT HOME/COMMUNITY SERVICES/EQUIPMENT:: No current services or equipment PRIMARY CARE PHYSICIAN:: Edgar Marie POTENTIAL DISCHARGE NEEDS:: Follow up appointments with PCP. PATIENT/FAMILY EDUCATION NEEDS:: Review of discharge instructions, discuss Ask Me Three. ANTICIPATED BARRIERS TO DISCHARGE:: None identified. TRANSPORTATION:: Via private vehicle with a friend/family. PLAN:: Marleny will return home when medically ready per MD. He will follow up with his PCP and plan of care as prescribed. He will transport home via private vehicle with family.
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
[2019-02-12] MEDS: cefTRIAXone 2 GM/50 ML BAG IVPB (17:58)
[2019-02-12] MEDS: Normal Saline 500 ML 200 ML IVPB (17:58)
--- NOTE | 2019-02-12 19:49 | W.PM.PROGNOT ---
Date of Service Date of service: 02/12/19 Time of Service: 15:30 Assessment and Plan (1) Community acquired pneumonia of both lungs: Current visit: Yes Status: Acute Continue azithromycin, rocephin. On stress dose hydrocortisone. (2) Bronchospasm: Current visit: Yes Status: Acute Continue IV hydrocortisone, schedule duonebs, continue prn albuterol (3) CKD (chronic kidney disease), stage III: Current visit: No Status: Chronic Monitor Cr (4) Thrombocytopenia: Current visit: No Status: Chronic Monitor plt count - I d/c'ed DVT ppx (5) Restrictive lung disease: Current visit: No Status: Chronic As above (6) Hypertension: Current visit: No Status: Chronic Continue losartan (7) Discharge planning issues: Current visit: Yes Status: Acute Full code (8) DVT prophylaxis: Current visit: Yes Status: Acute SCD's + MICK's. Heparin is contraindicated due to thrombocytopenia Subjective Interval history since last seen: Mr Martin states that his breathing and wheezing have been feeling a little bit better. He denies dizziness, chest pain, nausea, vomiting. Exam Narrative Exam Narrative: General: Very pleasant middle aged male, sitting in a chair, wearing 2L of O2 by NC HEENT: EOMI, MMM Heart: RRR, no m/r/g Lungs: rhonchi on expiration B GI: abdomen is soft, nontender, nondistended Extremities: +1 BLE edema, no clubbing/cyanosis Objective Objective Clinical Data: Abnormal lab results 02/11/19 02/11/19 02/12/19 Range/Units 19:41 21:00 00:10 WBC (4.4-10.8) k/cumm RBC (4.50-6.00) m/cumm Hgb (13.5-17.5) g/dL Hct (40.0-50.0) % Plt Count (130-400) x1000/uL MPV (8.0-11.0) fL Absolute Lymphocytes (1.2-3.4) k/cumm BUN (7-18) mg/dL Creatinine (0.70-1.30) mg/dL Glucose (70-100) mg/dL Lactate 1.6 H 2.0 H (0.6-1.4) mmol/L Calcium (8.5-10.1) mg/dL Urine Protein 30 H (Negative) mg/dL Urine Ketones Trace H (Negative) mg/dL Urine Urobilinogen 1.0 H (Up TO 0.2) EU/dL 02/12/19 02/12/19 02/12/19 Range/Units 07:00 07:00 08:50 WBC 3.74 L (4.4-10.8) k/cumm RBC 3.72 L (4.50-6.00) m/cumm Hgb 10.4 L (13.5-17.5) g/dL Hct 32.4 L (40.0-50.0) % Plt Count 63 L (130-400) x1000/uL MPV 12.4 H (8.0-11.0) fL Absolute Lymphocytes 0.39 L (1.2-3.4) k/cumm BUN 24 H (7-18) mg/dL Creatinine 1.44 H (0.70-1.30) mg/dL Glucose 138 H (70-100) mg/dL Lactate 1.6 H (0.6-1.4) mmol/L Calcium 8.0 L (8.5-10.1) mg/dL Urine Protein (Negative) mg/dL Urine Ketones (Negative) mg/dL Urine Urobilinogen (Up TO 0.2) EU/dL Vital Signs Temperature 36.3 C L 02/12/19 14:45 Temperature Source Tympanic 02/12/19 14:45 Pulse 69 02/12/19 14:45 Pulse Rhythm Regular 02/12/19 07:30 Pulse 104 H 02/11/19 20:16 Respiratory Rate 18 02/12/19 14:45 Respiratory Effort Non-Labored 02/12/19 07:30 Respiratory Depth Normal 02/12/19 07:30 Respiratory Pattern Normal 02/12/19 07:30 Blood Pressure 134/66 02/12/19 14:45 Blood Pressure Mean 82 02/11/19 20:16 Blood Pressure Position Sitting 02/11/19 17:08 Pulse Oximetry 98 02/12/19 14:45 Oxygen Delivery Method Nasal Cannula 02/12/19 14:45 Oxygen Flow Rate 2 02/12/19 14:45 Pain Level 0 02/12/19 07:30 Intake & Output 02/11/19 02/12/19 02/12/19 23:59 11:59 23:59 Intake Total 1458.333 / 2094.531 5486.667 / 2265.000 893.333 / 2265.000 Balance 1458.333 / 2074.083 5779.667 / 2265.000 893.333 / 2265.000 Weight 74.389 kg 74.4 kg Intake: IV 1458.333 / 1458.333 861.667 / 1035.000 173.333 / 1035.000 Oral 510 / 1230 720 / 1230 Other: Urine Color Yellow Yellow Yellow Urine Appearance Clear Clear Clear Urine Odor Normal None Comment Void x1 in the toilet. No hat in the toilet; RN unable to measure urine output amount. Voiding Methods Toilet Toilet Toilet Laboratory Results WBC 3.74 k/cumm (4.4-10.8) L 02/12/19 07:00 RBC 3.72 m/cumm (4.50-6.00) L 02/12/19 07:00 Hgb 10.4 g/dL (13.5-17.5) L 02/12/19 07:00 Hct 32.4 % (40.0-50.0) L 02/12/19 07:00 MCV 87.1 fL (80-95) 02/12/19 07:00 MCH 28.0 pg (27.0-33.0) 02/12/19 07:00 MCHC 32.1 g/dL (32.0-36.0) 02/12/19 07:00 RDW 13.6 % (11.8-14.1) 02/12/19 07:00 Plt Count 63 x1000/uL (130-400) L 02/12/19 07:00 MPV 12.4 fL (8.0-11.0) H 02/12/19 07:00 Immature Gran % 0.3 02/12/19 07:00 Neutrophils % 85.8 02/12/19 07:00 Lymphocytes % 10.4 02/12/19 07:00 Monocytes % 3.5 02/12/19 07:00 Eosinophils % 0.0 02/12/19 07:00 Basophils % 0.0 02/12/19 07:00 Absolute Neutrophils 3.21 k/cumm (1.2-6.7) 02/12/19 07:00 Absolute Lymphocytes 0.39 k/cumm (1.2-3.4) L 02/12/19 07:00 Absolute Monocytes 0.13 k/cumm (0.11-0.7) 02/12/19 07:00 Absolute Eosinophils 0.00 k/cumm (0.0-0.7) 02/12/19 07:00 Absolute Basophils 0.00 k/cumm (0.0-0.2) 02/12/19 07:00 Differential Comment Plt morph reviewed 02/12/19 07:00 RBC Morphology Normal 02/12/19 07:00 Sodium 139 mmol/L (136-145) 02/12/19 07:00 Potassium 4.2 mmol/L (3.5-5.1) 02/12/19 07:00 Chloride 107 mmol/L (98-107) 02/12/19 07:00 Carbon Dioxide 21.3 mmol/L (21.0-32.0) 02/12/19 07:00 Anion Gap 10.7 mmol/L (3-11) 02/12/19 07:00 BUN 24 mg/dL (7-18) H 02/12/19 07:00 Creatinine 1.44 mg/dL (0.70-1.30) H 02/12/19 07:00 Estimated GFR/1.73 m2 47.70 (mL/min/1.73m2) 02/12/19 07:00 Glucose 138 mg/dL (70-100) H 02/12/19 07:00 Lactate 1.6 mmol/l (0.6-1.4) H 02/12/19 08:50 Calcium 8.0 mg/dL (8.5-10.1) L 02/12/19 07:00 Magnesium 1.8 mg/dL (1.8-2.4) 02/11/19 17:45 Total Bilirubin 0.6 mg/dL (0.2-1.0) 02/11/19 17:45 AST 43 U/L (15-37) H 02/11/19 17:45 ALT 42 U/L (12-78) 02/11/19 17:45 Alkaline Phosphatase 155 U/L (46-116) H 02/11/19 17:45 Troponin I < 0.02 ng/mL (0.00-0.06) 02/11/19 17:45 Total Protein 8.7 g/dL (6.4-8.2) H 02/11/19 17:45 Albumin 3.0 g/dL (3.4-5.0) L 02/11/19 17:45 TSH 1.57 uIU/mL (0.358-3.74) 02/11/19 17:45 Urine Color Yellow (Yellow) 02/11/19 19:41 Urine Clarity Clear 02/11/19 19:41 Urine pH 5.5 (5-8) 02/11/19 19:41 Ur Specific Hudson 1.020 (1.005-1.025) 02/11/19 19:41 Urine Protein 30 mg/dL (Negative) H 02/11/19 19:41 Urine Ketones Trace mg/dL (Negative) H 02/11/19 19:41 Urine Blood Negative (Negative) 02/11/19 19:41 Urine Nitrite Negative (Negative) 02/11/19 19:41 Urine Bilirubin Negative (Negative) 02/11/19 19:41 Urine Urobilinogen 1.0 EU/dL (Up TO 0.2) H 02/11/19 19:41 Ur Leukocyte Esterase Negative (Negative) 02/11/19 19:41 Urine RBC 0-2 (0-2) 02/11/19 19:41 Urine WBC 3-5 HPF (0-5) 02/11/19 19:41 Ur Epithelial Cells Negative HPF (Negative) 02/11/19 19:41 Urine Crystals Negative HPF (Negative) 02/11/19 19:41 Urine Bacteria Negative HPF (Negative) 02/11/19 19:41 Urine Casts Negative LPF (Negative) 02/11/19 19:41 Urine Mucus Negative (Negative) 02/11/19 19:41 Urine Other Negative (Negative) 02/11/19 19:41 Ur Culture Indicated? No 02/11/19 19:41 Urine Glucose Negative mg/dL (Negative) 02/11/19 19:41
[2019-02-12] MEDS: Albuterol/Ipratropium 3 ML UPD VIAL UPD (20:53)
[2019-02-12] MEDS: AZITHROMYCIN 500 MG in Normal Saline 250 ML 250 MG IVPB (21:51)
[2019-02-13] VITALS (9 sets, daily range): BP systolic 126–161; BP diastolic 65–71; PULSE 77–96; RESP 2–18; TEMP 36.7–36.8; O2SAT 97–99
[2019-02-13] MEDS: Albuterol/Ipratropium 3 ML UPD VIAL UPD ×3 (02:02→14:43)
[2019-02-13] MEDS: Hydrocortisone SOD SUC. 100 MG VIAL 50 MG IVP ×2 (05:46→11:28)
[2019-02-13] MEDS: Normal Saline Flush 10 ML SYR IVP ×2 (05:47→11:28)
[2019-02-13 07:23] LABS: Anion Gap 12.8 mmol/L (3-11); BUN 31 mg/dL (7-18); CO2 21.2 mmol/L (21.0-32.0); CREATININE 1.51 mg/dL (0.70-1.30); Calcium 8.2 mg/dL (8.5-10.1); Chloride 107 mmol/L (98-107); Estimated GFR 45.15 (mL/min/1.73m2); Glucose 142 mg/dL (70-100); Magnesium 2.3 mg/dL (1.8-2.4); Potassium 3.6 mmol/L (3.5-5.1); Sodium 141 mmol/L (136-145)
[2019-02-13 07:31] LABS: Abs Immature Grans 0.01 k/cumm (0.0-0.09); Absolute Basophil Count 0.01 k/cumm (0.0-0.2); Absolute Lymphocyte Count 0.49 k/cumm (1.2-3.4); Absolute Monocyte Count 0.24 k/cumm (0.11-0.7); Basophils % 0.2; HGB 10.5 g/dL (13.5-17.5); Immature Grans % 0.2; Lymphocytes % 8.4; Mean Corp. HGB Concentration 32.8 g/dL (32.0-36.0); Mean Corpuscular Hemoglobin 28.4 pg (27.0-33.0); Mean Corpuscular Volume 86.5 fL (80-95); Mean Platelet Volume 12.7 fL (8.0-11.0); Monocytes % 4.1; Neutrophils % 87.1; RBC Distribution Width 13.8 % (11.8-14.1); White Blood Cell Count 5.85 k/cumm (4.4-10.8)
[2019-02-13 08:19] LABS: Platelet Count 74 x1000/uL (130-400)
[2019-02-13 08:20] LABS: Diff Comment Agrees w/ Instrument; Microcytosis 2+
[2019-02-13] MEDS: Losartan 50 MG TAB 100 MG PO (08:37)
[2019-02-13] MEDS: guaiFENesin 600 MG TABCR 1200 MG PO (08:37)
[2019-02-13] MEDS: Omeprazole 20 MG CAPCR PO (08:37)
[2019-02-13] MEDS: Magnesium Oxide 400 MG TAB PO (08:37)
[2019-02-13] MEDS: Calcium 600mg/Vit D 200U TAB 1 TAB PO (08:37)
[2019-02-13] MEDS: Benzonatate 200 MG CAP PO ×2 (08:37→14:08)
[2019-02-13] MEDS: Potassium Chloride 20 MEQ TABCR 40 MEQ PO (10:10)
--- NOTE | 2019-02-13 11:39 | PHARADMIT ---
Admission Pharmacy Clinical Review PNEUMONIA Code Status Full Code Current Weight Wgt- 74.4 kg Renally Cleared and Narrow Therapeutic Index Meds CrCl~36 mL/min Meds-OK QTc Value / Action Taken QTc-411 NA BP Control, Fever BP-143/69 Tmax- 36.7C Electrolytes reviewed Na-141 K+3.6 Mag-2.3 DVT Prophylaxis No low Plts Opiate Usage / Scheduled Bowel Regimen Ordered No Yes Plt/SCr for Heparin / Enoxaparin Plts- 74 SCr- 1.51 INR for Warfarin na H/H stable, WBC/Bands H&H- 10.5/32.0 WBC- 5.85 Antibiotic appropriateness Azithromycin. Rocephin Cultures and Sensitivities Blood- No growth/24hr Flu-neg Surgical ABX d/c within 24 hr NA DM control / Insulin Dosing BG- 142 Heart Failure (Check EF%) (ATUL's, B-Block, Diuretics) Losartan, IV to PO Switch No Home Meds Reviewed Yes Home Meds Not Ordered Ordered Comments
--- NOTE | 2019-02-13 13:37 | DSE_ITS ---
Date of service: 02/13/19 Time of Service: 13:36 DS: Diagnosis Discharge Diagnosis (1) Community acquired pneumonia of both lungs: Status: Acute (2) Bronchospasm: Status: Acute (3) CKD (chronic kidney disease), stage III: Status: Chronic (4) Thrombocytopenia: Status: Chronic (5) Restrictive lung disease: Status: Chronic (6) Hypertension: Status: Chronic (7) DVT prophylaxis: Status: Acute Discharge Plan Disposition Patient Disposition: HOME Condition: Stable Discharge Details Reason For Visit: PNEUMONIA Admit Date/Time: 02/11/19 19:44 Admit Provider: Dominick Rodgers Attending Provider: Dominick Rodgers Primary Care Provider: Edgar Marie [facility] Hospital Course Hospital Course: CC: Dyspnea HPI: 78 year old man with a prior history significant for Restrictive Lung Disease admitted from [facility] Emergency Department on 02/11/2019 with a diagnosis of Pneumonia. Mr. Martin is a 78 year old non-smoker with a Prior medical history significant for restrictive lung disease, CKD, HTN, and chronic Thrombocytopenia. He presented to the ED with a complaint of a 1 to 2 week history of dry cough, dyspnea, and subjective fevers and chills. 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 Upon presentation to the ED he was found to be febrile and tachypneic, but not hypoxic . Workup was significant for a mild leukopenia, elevated lactate of 1.7, and a CXR demonstrating bilateral infiltrates based on on low lung volumes, atelectasis, or pneumonia. He was referred for admission for further evaluation and treatment of a clinically suspected Community Acquired Pneumonia. Hospital Course: (1) Community acquired pneumonia of both lungs: Patient has had a significant and rapid improvement with treatment including Azithromycin and Ceftriaxone. He will be continued on oral regimen of Cefpodoxime and Azithromycin for completion of antibiotic course, with a short course of prednisone taper. He was advised to use his rescue inhaler liberally. The patient has remained afebrile now since time of admission. (2) Anemia Mild drop in Hemoglobin, but stable since yesterday - may represent hemodilution with administration of IV Fluids. However, patient's Hgb with was normal in 2016, with a value of 12.8 earlier this month, has dropped to 10-11. Values appear stable and patient is asymptomatic. However, he did has a Heme + stool prior to discharge, without gross blood visible. Mr. Martin is chronically on antiplatelet therapy with once daily aspirin. Will ensure continuation of PPI therapy, increased to max dose and BID dosing. Will conclude work-up with iron studies, B12, and FA as an outpatient, with repeat blood work via Home Health in 2 days. May benefit from outpatient work-up to include EGD and age appropriate Colon Ca screening if not already performed. Given chronic thrombocytopenia this may also represent a bone marrow disorder such as MDS, and given CKD this may also represent anemia of chronic disease acutely worsened in the setting of illness. Further work-up pending results of above labs. (3) CKD (chronic kidney disease), stage III: Creatinine appears stable and at baseline values. Continue daily ARB. (4) Thrombocytopenia: Noted. (5) Restrictive lung disease: Treatment as above. (6) Hypertension: Continue losartan (7) DVT prophylaxis: Given Thrombocytopenia and anemia patient was maintained on SCD's + MICK's. (8) Discharge Planning Issues: Patient will benefit from Home Health for nursing for follow-up on medical condition, vitals, and repeat labs. Home Meds and New Rx's Prescriptions: New cefpodoxime 200 mg tablet 200 mg PO BID Qty: 11 RF: 0 azithromycin 250 mg tablet 250 mg PO DAILY Qty: 3 RF: 0 prednisone 10 mg tablet 10 mg PO DAILY Qty: 21 RF: 0 omeprazole 40 mg capsule,delayed release(DR/EC) 40 mg PO BID Qty: 60 RF: 0 Continued losartan 50 MG tablet 100 mg PO DAILY RF: 0 aspirin 81 MG tablet,chewable 81 mg PO DAILY RF: 0 magnesium oxide 250 MG tablet 250 mg PO DAILY AM RF: 0 Calcium 600 + D(3) 600 mg calcium- 200 unit Capsule 1 cap PO DAILY RF: 0 acetaminophen [Tylenol Extra Strength] 500 mg Tablet 1,000 mg PO Q6H PRNRF: 0 Changed albuterol sulfate [ProAir HFA] 8.5 GM HFA aerosol inhaler 2 puff Inhalation Q4H Qty: 0 RF: 0 Discontinued omeprazole 20 MG capsule,delayed release(DR/EC) 20 mg PO DAILY RF: 0 Discharge Instructions Instructions: Bacterial Pneumonia (DC), Bacterial Pneumonia (GEN) Additional Instructions: Please see your primary care doctor within one week of discharge. You will have Home Health Nursing stop by to check on you, check your vitals, and draw blood. Please take your medications as prescribed to completion. Please call your doctor or return to the hospital if you experience fevers, or your condition worsens. Activity:: No strenuous activity Equipment/Supplies:: No Equipment Needed Diet:: Low Sodium Discharge Orders Discharge Orders: Discharge Order (Routine); Ordered 02/13/19 Ordered By: Ran French Other Ambulatory Orders: Vitamin B12 (Routine) Location: Determined by Patient Ordered By: Ran French Basic Metabolic Panel (Routine) Timeframe: 2 Days Location: Determined by Patient Ordered By: Ran French Complete Blood Count w/Diff (Routine) Location: Determined by Patient Ordered By: Ran French Ferritin (Routine) Location: Determined by Patient Ordered By: Ran French Folate (Routine) Timeframe: 2 Days Location: Determined by Patient Ordered By: Ran French Iron/IBCT (Routine) Location: Determined by Patient Ordered By: Ran French DS: Data Vitals/I&O Vitals and I&O: Vital Signs Temperature 36.8 C 02/13/19 11:28 Temperature Source Skin 02/13/19 11:28 Pulse 96 H 02/13/19 11:28 Pulse Rhythm Regular 02/13/19 02:56 Pulse 104 H 02/11/19 20:16 Respiratory Rate 18 02/13/19 11:28 Respiratory Effort Non-Labored 02/13/19 02:56 Respiratory Depth Normal 02/13/19 02:56 Respiratory Pattern Normal 02/13/19 02:56 Blood Pressure 161/71 H 02/13/19 11:28 Blood Pressure Mean 82 02/11/19 20:16 Blood Pressure Position Sitting 02/11/19 17:08 Pulse Oximetry 97 02/13/19 11:28 Oxygen Delivery Method Room Air 02/13/19 11:28 Oxygen Flow Rate 0 02/13/19 11:28 Pain Level 0 02/13/19 11:28 Intake & Output 02/12/19 02/13/19 02/13/19 23:59 11:59 23:59 Intake Total 1143.333 / 2515.000 850 / 850 Balance 1143.333 / 2515.000 850 / 850 Intake: IV 423.333 / 1285.000 Oral 720 / 1230 850 / 850 Other: Urine Color Yellow Yellow Urine Appearance Clear Clear Urine Odor None Comment Void x1 in the toilet. Stool Occult Blood Positive Stool Size Small Stool Characteristics Soft Formed Brown Voiding Methods Toilet Toilet Completed studies during hospitalization [Text1]: Exam(s) a RAD:XR chest 2V PA & lateral SYMPTOM/DIAGNOSIS: COUGH, WHEEZE, CRACKLES, FEVER FRONTAL AND LATERAL CHEST: Comparison is made with 01/21/18. There is poor inspiration. Heart size and pulmonary vasculature appear stable. There are chronic interstitial changes in the lungs, particularly on the right. There do however appear to be increased lung markings, particularly in the mid and lower lobes, left greater than right when compared to the prior examination. No effusions or pneumothoraces are identified. Stable degenerative changes are seen in the spine. IMPRESSION: Bilateral pulmonary infiltrates. This may in part be due to the low lung volumes but atelectasis or pneumonia cannot be excluded. Please correlate clinically. Labs on day of discharge: Labs from last 24 hours 02/13/19 02/13/19 06:25 06:25 WBC 5.85 D RBC 3.70 L Hgb 10.5 L Hct 32.0 L MCV 86.5 MCH 28.4 MCHC 32.8 RDW 13.8 Plt Count 74 L MPV 12.7 H Immature Gran % 0.2 Neutrophils % 87.1 Lymphocytes % 8.4 Monocytes % 4.1 Eosinophils % 0.0 Basophils % 0.2 Absolute Neutrophils 5.10 Absolute Lymphocytes 0.49 L Absolute Monocytes 0.24 Absolute Eosinophils 0.00 Absolute Basophils 0.01 Differential Comment Agrees w/ instrument RBC Morphology See below Microcytosis 2+ Sodium 141 Potassium 3.6 Chloride 107 Carbon Dioxide 21.2 Anion Gap 12.8 H BUN 31 H Creatinine 1.51 H Estimated GFR/1.73 m2 45.15 Glucose 142 H Calcium 8.2 L Magnesium 2.3 Preliminary micro results at discharge 02/11/19 20:50 Sputum Culture - Preliminary Sputum Normal Darcy 02/11/19 17:56 Blood Culture - Preliminary Blood NO GROWTH 24 HOURS 02/11/19 17:45 Blood Culture - Preliminary Blood NO GROWTH 24 HOURS [facility] Medical History History of prostate cancer (Chronic) CKD (chronic kidney disease), stage III (Chronic) Thrombocytopenia (Chronic) Rales (Chronic) Restrictive lung disease (Chronic) Hypertension (Chronic) Right carpal tunnel syndrome (Resolved) Surgical History S/P radiation therapy (Resolved) S/P endoscopic carpal tunnel release (Resolved 09/09/18) Family History Mother No problems noted. Father Cardiovascular disease Brother No problems noted. 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
--- NOTE | 2019-02-13 14:17 | PDOC.HHF2F ---
1. Encounter Date and Reason I certify that VINOD DIXON was seen by Ran French on 02/13/19 and that I had a [id number] encounter with this patient that meets the physician face to face encounter requirements. 2. Clinical Findings Supporting Skilled Need and Homebound Status I certify that home health services are medically necessary, include either intermittent intermediate and/or physical/speech therapy, and that this patient is homebound in that absences from the home require considerable and taxing effort and are infrequent or of short duration, or are attributable to the need to receive medical care. [X] (a) Attached documentation from encounter provides clinical findings supporting skilled need and homebound status (including what assistance patient requires to leave the home). The encounter with the patient was in whole, or in part, for the following medical condition, which is the primary reason for home health care: PNEUMONIA Usp: Clinical assessment of patient, including pulmonary exam, vitals to include blood pressure and pulse ox, med check, and blood draw (CBC, BMP, Iron/TIBC, Ferritin, B12, Folic Acid). Physical Therapy: Speech Therapy: Homebound: 3. Certification and Authentication I certify that I composed the above information based on my clinical judgement relating to this patient's medical condition and, if applicable, clinical findings communicated to me by the NPP or inpatient physician who performed the Home Health Referral. All further orders will be obtained through (Community Based Physician - PCP)
[2019-02-13 14:43] LABS: Streptococcus Pneumoniae Ag, U Negative (Negative)
--- NOTE | 2019-02-13 14:51 | PDOC.CMDIS ---
- If Service Date Differs Date of service: 02/13/19 Time of Service: 14:51 LACE Index Scoring Tool - Questions: Length of Stay (in days): 2 Acuity (Admit via E.D.?): Yes Comorbidities: Mild Liver/Renal Disease, Any Tumor E.D. Visits: 2 - Answers: Total Score: 12 Risk of Readmission: High Risk Care Management Discharge Reason for Hospitalization: Pneumonia Discharge Plan: Marleny will return home with home health RN services. He will F/U with PCP and plan of care as prescribed. Family to transport. Patient/Family Education Needs: Review DC instructions, any limitations, and ongoing DC planning discussion. Discuss 'Ask Me three' Services Needed at Discharge: Home Health Care Services (RN)
[2019-02-14 20:46] LABS: Mycoplasma Pneumoniae PCR Negative; Specimen source SPUTUM
== END 2019-02-13 16:02 | disposition home or self-care (01) | DRG 195 ==
LOC: ER 17:25 → MS 21:15
PROVIDERS: Internal Medicine; Admitting Provider Internal Medicine; Emergency Provider Student in an Organized Health Care Education/Training Program; PCP Family Medicine; Visit Provider Internal Medicine
DX: R06.00 Dyspnea, unspecified (principal); J18.9 Pneumonia, unspecified organism; J98.01 Acute bronchospasm; J98.4 Other disorders of lung; I12.9 Hypertensive chronic kidney disease with stage 1 through stage 4 chronic kidney disease, or unspecified chronic kidney disease; N18.3 Chronic kidney disease, stage 3 (moderate); D69.6 Thrombocytopenia, unspecified; D64.9 Anemia, unspecified; R74.0 Nonspecific elevation of levels of transaminase and lactic acid dehydrogenase [LDH]; R19.5 Other fecal abnormalities; R11.2 Nausea with vomiting, unspecified; R06.82 Tachypnea, not elsewhere classified; E86.0 Dehydration; Z79.02 Long term (current) use of antithrombotics/antiplatelets; Z23 Encounter for immunization
CPT/HCPCS: 36415; 80048; 80053; 87040; 87449; 93005; 94640; 96361; 96374; 99223; 99232; 99239; 99285; 71046; 81003; 81015; 83605; 83735; 84443; 84484; 85025; 87070; 87205; 87450; 87581; 93010; G0378; J0456; J1650; J1720; J2930; J7620

== ENCOUNTER 2019-02-17 10:29 | Outpatient (REF) | payer BC, OTHER, SELFPAY ==
[2019-02-17 11:31] LABS: Abs Immature Grans 0.09 k/cumm (0.0-0.09); Absolute Basophil Count 0.01 k/cumm (0.0-0.2); Absolute Lymphocyte Count 0.44 k/cumm (1.2-3.4); Absolute Monocyte Count 0.29 k/cumm (0.11-0.7); Absolute Neutrophil Count 4.55 k/cumm (1.2-6.7); Basophils % 0.2; HCT 34.4 % (40.0-50.0); HGB 11.4 g/dL (13.5-17.5); Immature Grans % 1.7; Lymphocytes % 8.2; Mean Corp. HGB Concentration 33.1 g/dL (32.0-36.0); Mean Corpuscular Hemoglobin 28.3 pg (27.0-33.0); Mean Corpuscular Volume 85.4 fL (80-95); Mean Platelet Volume 12.6 fL (8.0-11.0); Monocytes % 5.4; Neutrophils % 84.5; Platelet Count 101 x1000/uL (130-400); RBC 4.03 m/cumm (4.50-6.00); RBC Distribution Width 13.4 % (11.8-14.1); White Blood Cell Count 5.38 k/cumm (4.4-10.8)
[2019-02-17 11:50] LABS: Iron 57 ug/dL (50-175); Total Iron Binding Capacity 325 ug/dL (250-450); Transferrin Sat 18 % (20-55)
[2019-02-17 12:10] LABS: BUN 21 mg/dL (7-18); CREATININE 1.37 mg/dL (0.70-1.30); Calcium 8.6 mg/dL (8.5-10.1); Chloride 104 mmol/L (98-107); Estimated GFR 50.52 (mL/min/1.73m2); Ferritin 40 ng/mL (8-388); Glucose 129 mg/dL (70-100); Potassium 4.1 mmol/L (3.5-5.1); Sodium 139 mmol/L (136-145); Vitamin B12 555 pg/mL (193-986)
[2019-02-17 12:11] LABS: Folate > 20.0 ng/mL (8.6-20.0)
== END 2019-02-17 10:49 ==
LOC: NCHCN 10:29
PROVIDERS: PCP Family Medicine; Visit Provider Family Medicine
DX: D63.1 Anemia in chronic kidney disease (principal); N18.3 Chronic kidney disease, stage 3 (moderate)
CPT/HCPCS: 80048; 82607; 82728; 82746; 83540; 83550; 85025

== ENCOUNTER 2019-03-03 00:25 | Outpatient (CLI) | payer OTHER, BC, SELFPAY ==
--- NOTE | 2019-03-03 08:32 | DI.US_ITS ---
SYMPTOM/DIAGNOSIS: THROMBOCYTOPENIA, D69.6,ASSESS LIVER CONTOUR AND SPLEEN SIZE, SOME SUGGESTION OF CIRRHOSIS ON LAB TESTS ABDOMEN ULTRASOUND: The aorta and vena cava are intact. The liver measures 13.4 cm. and is heterogenous with normal portal flow. The gallbladder is intact with no evidence of cholelithiasis or wall thickening. There is no evidence of biliary dilatation. The pancreas is unremarkable. The spleen measures 12.9 cm. in length. The right kidney measures 9.1 cm. and the left kidney, 11.8 cm. There is no evidence of hydronephrosis. There is some question regarding cortical thinning involving the lower pole of the left kidney. SUMMARY: Mild enlargement of the spleen is demonstrated. There is no evidence of hepatomegaly. There is some questionable cortical thinning at the lower pole of the left kidney.
== END 2019-03-03 00:45 ==
PROVIDERS: PCP Family Medicine; Visit Provider Family Medicine
DX: D69.6 Thrombocytopenia, unspecified (principal); R16.1 Splenomegaly, not elsewhere classified
CPT/HCPCS: 76700

== ENCOUNTER 2019-03-06 15:31 | Emergency (ER) | payer OTHER, SELFPAY ==
[2019-03-06 16:06] VITALS: BP 117/66; PULSE 78; RESP 18; TEMP 36.6; O2SAT 98
--- NOTE | 2019-03-06 16:22 | DI.RAD_ITS ---
SYMPTOM/DIAGNOSIS: WRIST PAIN, FALL RIGHT WRIST: There is soft tissue swelling along the ulnar aspect of the wrist. On the lateral view there are small fracture fragments seen posteriorly, of indeterminate age. Degenerative changes are seen of the radial carpal joint. IMPRESSION: Posterior carpal fracture fragments of indeterminate age, likely acute.
[2019-03-06] MEDS: Acetaminophen 500 MG TAB 1000 MG PO (16:23)
--- NOTE | 2019-03-06 17:23 | ED.GENADUL_ITS ---
Discharge Plan Disposition Patient Disposition: HOME Condition: Stable Discharge Details Chief Complaint: Orthopedic Clinical Impression: Right wrist sprain Primary Care Provider: Edgar Marie ED Provider: Konstantin Kasper Home Meds and New Rx's Prescriptions: Continued losartan 50 MG tablet 100 mg PO DAILY RF: 0 aspirin 81 MG tablet,chewable 81 mg PO DAILY RF: 0 magnesium oxide 250 MG tablet 250 mg PO DAILY AM RF: 0 Calcium 600 + D(3) 600 mg calcium- 200 unit Capsule 1 cap PO DAILY RF: 0 omeprazole 40 mg capsule,delayed release(DR/EC) 40 mg PO BID Qty: 60 RF: 0 albuterol sulfate [ProAir HFA] 8.5 GM HFA aerosol inhaler 2 puff Inhalation Q4H Qty: 0 RF: 0 Discontinued cefpodoxime 200 mg tablet 200 mg PO BID Qty: 11 RF: 0 azithromycin 250 mg tablet 250 mg PO DAILY Qty: 3 RF: 0 No Action acetaminophen [Tylenol Extra Strength] 500 mg Tablet 1,000 mg PO Q6H PRNRF: 0 prednisone 10 mg tablet 10 mg PO DAILY Qty: 21 RF: 0 Discharge Instructions Instructions: RICE Therapy (ED), Wrist Sprain (ED) Additional Instructions: You may continue to use acetaminophen as needed for discomfort and wear the wrist splint over the next 2 weeks and slowly advance activity as tolerated. If not improving please call orthopedic office for arrangement of follow-up appointment. Referrals: Mohamud Dash MD [ [facility] STAFF PHYSICIAN] - (Call the office for arrange ment of appointment if not improving) Discharge Data Discharge Date/Time-TO BE ENTERED AT DEPARTURE: 03/06/19 17:41 Medical Decision Making Patient presenting the emergency department for chief complaint of wrist pain. He states earlier this morning he was walking on some snow-covered ice and slipped and fell. He went to catch himself with his hand and ended up injuring his right wrist. Patient denies any loss of consciousness or other secondary injuries. Patient has tenderness to the distal ulna and significant decreased r al of motion of the wrist. Otherwise no pain with axial load of thumb no specific anatomical snuffbox pain. Plan to check radiological imaging to rule out acute fracture, give Tylenol for pain. Review of radiological imaging and interpretation by myself shows no acute fracture or obvious dislocation. Due to delay in receiving virtual radiologist report, patient requesting to be discharged I feel that patient is able to be safely placed in a wrist splint and discharged with clear understanding that if radiologist interpretation shows different finding that he should return to emergency department for change in splinting material. Patient was agreeable to this plan. Patient was informed to use this over the next couple weeks and continue [id number] pain medication and follow-up with orthopedist if not improving. After discussion of diagnosis and plan of care patient has no further needs, questions, or concerns and states clear understanding to return to the emergency department for any worsening symptoms. vRad interpretation shows ossific fragments along the dorsal aspect of the wrist may represent avulsion fractures of unknown age. HPI General Mode of arrival: ambulatory . Date/Time Provider Initiated Documentation: 03/06/19 15:37 . Limitations to Documentation: no limitations . Information obtained by: patient and RN notes reviewed . History of Present Illness 78 year old M presents to the emergency department with the chief complaint of right wrist injury, described as severe, with intensity rated at 10. Quality is described as aching and sharp, and is localized to the right and upper extremity. Patient started experiencing this hour(s) (6) and it has been constant. No relieving factors improve symptom(s), Movement worsens symptoms . Patient notes no other symptoms.. Patient did receive the following treatments prior to arrival, cold therapy Related Data Home Medications Medication Instructions Recorded Confirmed aspirin 81 mg PO DAILY tab-cap 02/25/17 02/11/19 losartan 100 mg PO DAILY tab-cap 02/25/17 02/11/19 magnesium oxide 250 mg PO DAILY AM 02/25/17 02/11/19 Calcium 600 + D(3) 1 cap PO DAILY 09/03/18 02/11/19 acetaminophen [Tylenol Extra 1,000 mg PO Q6H PRN 09/03/18 02/11/19 Strength] albuterol sulfate [ProAir HFA] 2 puff INHALATION Q4H #0 inhaler 02/13/19 02/11/19 omeprazole 40 mg PO BID #60 cap 02/13/19 prednisone 10 mg PO DAILY #21 tab 02/13/19 Previous Rx's Medication Instructions Recorded albuterol sulfate [ProAir HFA] 2 puff INHALATION Q4H #0 inhaler 02/13/19 omeprazole 40 mg PO BID #60 cap 02/13/19 prednisone 10 mg PO DAILY #21 tab 02/13/19 Allergies Allergy/AdvReac Type Severity Reaction Status Date / Time No Known Allergies Allergy Verified 03/06/19 16:08 General Stated Complaint: Orthopedic MANGO: 4 Review of Systems Cardiovascular Denies syncope Musculoskeletal Reports as per HPI, Denies numbness and Denies tingling Integumentary/Breasts Denies rash, Denies sores and Denies wounds Neurologic Denies syncope, Denies numbness and Denies tingling [facility] Medical History History of prostate cancer (Chronic) CKD (chronic kidney disease), stage III (Chronic) Thrombocytopenia (Chronic) Rales (Chronic) Restrictive lung disease (Chronic) Hypertension (Chronic) Right carpal tunnel syndrome (Resolved) Surgical History S/P radiation therapy (Resolved) S/P endoscopic carpal tunnel release (Resolved 09/09/18) Family History Mother No problems noted. Father Cardiovascular disease Brother No problems noted. 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 Do you feel safe in your relationship?: Yes Exam Const General: cooperative and no acute distress Orientation: alert, awake and oriented x3 Resp Effort & Inspection: normal respiratory effort and able to speak in complete sentences Cardio Rate: regular rate Rhythm: regular rhythm Extrem Right upper extremity: elbow/forearm Details: normal to inspection and normal ROM; no tenderness, wrist Details: tenderness Location: of the distal ulna and of the dorsal wrist, swelling Location: of the dorsal wrist, abnormal ROM Details: pain with active ROM during, pain with passive ROM during and with range as follows (Really decreased limited by pain) and normal vascular exam; no ecchymosis and hand Details: normal to inspection, normal capillary refill, neuromotor exam normal, neurosensory exam normal, tendon exam normal and normal ROM of fingers; no tenderness Course Vital Signs Temperature 36.6 C 03/06/19 16:06 Pulse 78 03/06/19 16:06 Respiratory Rate 18 03/06/19 16:06 Blood Pressure 117/66 03/06/19 16:06 Pulse Oximetry 98 03/06/19 16:06 Temperature 36.6 C 03/06/19 16:06 Temperature Source Temporal Artery Scan 03/06/19 16:06 Pulse 78 03/06/19 16:06 Respiratory Rate 18 03/06/19 16:06 Blood Pressure 117/66 03/06/19 16:06 Pulse Oximetry 98 03/06/19 16:06 Oxygen Delivery Method Room Air 03/06/19 16:06 Oxygen Flow Rate 0 03/06/19 16:06 Pain Level 10 03/06/19 16:06
--- NOTE | 2019-03-06 17:42 | DI.VRAD_ITS ---
EXAM: XR Right Wrist Complete, 3 or more Views EXAM DATE/TIME: 03/06/2019 4:23 PM CLINICAL HISTORY: 78 years old, male; Patient HX: Right wrist pain, fall. TECHNIQUE: Imaging protocol: XR Right wrist 3 or more views. COMPARISON: No relevant prior studies available. FINDINGS: Bones/joints: Degenerative changes in the radiocarpal joint and carpal bones and distal ulna. Degenerative changes in the thumb carpometacarpal joint. Ossific fragments along the dorsal aspect of the wrist may represent avulsion fractures of unknown age. Soft tissues: Soft tissue swelling of the wrist IMPRESSION: Ossific fragments along the dorsal aspect of the wrist may represent avulsion fractures of unknown age. Dictated and Authenticated by: Trice Dos Santos MD. Ordering:MADHU Pryor MD
== END 2019-03-06 17:41 | disposition home or self-care (01) ==
PROVIDERS: Emergency Provider Nurse Practitioner Family; PCP Family Medicine
DX: S63.501A Unspecified sprain of right wrist, initial encounter (principal); W00.0XXA Fall on same level due to ice and snow, initial encounter
CPT/HCPCS: 29125; 99283; 73110; L3908

== ENCOUNTER 2021-05-23 21:25 | Outpatient (REF) | payer BC, SELFPAY | END 2021-05-23 21:26 | disposition home or self-care (01) | LOC: NCHCN 21:25 | PROVIDERS: PCP Family Medicine; Visit Provider Family Medicine | DX: R31.0 Gross hematuria (principal) | CPT/HCPCS: 87086 ==

== ENCOUNTER 2021-09-21 19:42 | Outpatient (REF) | payer BC, SELFPAY ==
[2021-09-21 19:30] LABS: HCT 36.3 % (40.0-50.0); HGB 12.1 g/dL (13.5-17.5); MCH 30.5 pg (27.0-33.0); MCHC 33.3 % (32.0-36.0); MCV 91.4 fL (80-95); MPV 13.1 fL (8.0-11.0); RBC 3.97 10^6/uL (4.36-5.78); RDW 13.2 % (11.8-14.1); RDW-SD 44.6 fL; WBC 5.19 10^3/uL (4.4-10.8)
[2021-09-21 19:34] LABS: Platelet Count 66 10^3/uL (130-400)
[2021-09-21 20:01] LABS: INR 1.2 (0.9-1.1); Prothrombin Time 11.7 sec (9.3-11.0)
[2021-09-21 21:02] LABS: Hemoglobin A1C 5.2 % (<5.7)
[2021-09-21 21:10] LABS: ALT 29 U/L (16-63); AST 35 U/L (15-37); Albumin 2.7 g/dL (3.4-5.0); Alkaline Phosphatase 181 U/L (46-116); Anion Gap 10.6 mmol/L (3-11); BUN 17 mg/dL (7-18); Bilirubin, Total 0.5 mg/dL (0.2-1.0); CO2 23.4 mmol/L (21.0-32.0); CREATININE 1.3 mg/dL (0.70-1.30); Calcium 8.5 mg/dL (8.5-10.1); Chloride 108 mmol/L (98-107); Estimated GFR 53.25 (mL/min/1.73m2); Glucose 143 mg/dL (74-106); Potassium 4.4 mmol/L (3.5-5.1); Sodium 142 mmol/L (136-145)
[2021-09-21 21:46] LABS: Iron 251 ug/dL (65-175); Total Iron Binding Capacity 275 ug/dL (250-450); Transferrin Sat 91 % (20-55)
[2021-09-24 09:53] LABS: PSA, Diagnostic 0.3 ng/mL (0.0-6.5)
== END 2021-09-21 19:43 | disposition home or self-care (01) ==
LOC: NCHCN 19:42
PROVIDERS: PCP Family Medicine; Visit Provider Family Medicine
DX: N18.9 Chronic kidney disease, unspecified (principal); D63.1 Anemia in chronic kidney disease; K74.60 Unspecified cirrhosis of liver; C61 Malignant neoplasm of prostate; R73.03 Prediabetes
CPT/HCPCS: 80053; 85027; 83036; 83540; 83550; 84153; 85610

== ENCOUNTER 2021-12-03 09:04 | Emergency (ER) | payer BC, SELFPAY ==
[2021-12-03 09:17] VITALS: BP 142/66; PULSE 78; RESP 22; TEMP 36.7; O2SAT 96
--- NOTE | 2021-12-03 09:45 | RT.EKG_ITS ---
APPROVED REPORT Exam: Resting ECG Reason for Exam: SOB Patient Location: E HR:75 bpm ECG Measurements Heart Rate 75 AXIS [place] 133 P 51 QRSd 84 QRS 30 QT 384 T 32 QTc 428 Conclusion Sinus rhythm...normal P axis, V-rate 60- 99 sinus rhythm at 75, normal axis, no acute ischemic changes, nondiagnostic EKG
--- NOTE | 2021-12-03 10:21 | ED.GENADUL_ITS ---
Discharge Plan Disposition Patient Disposition: HOME Condition: Stable Discharge Details Clinical Impression: Cough Primary Care Provider: Edgar Marie ED Provider: Johanna Alvarenga Home Meds and New Rx's Prescriptions: New amoxicillin-pot clavulanate [Augmentin] 875-125 mg tablet 1 tab PO BID Qty: 10 0RF Continued losartan 50 MG tablet 100 mg PO DAILY 0RF aspirin 81 MG tablet,chewable 81 mg PO DAILY 0RF magnesium oxide 250 MG tablet 250 mg PO DAILY AM 0RF omeprazole 20 mg capsule,delayed release(DR/EC) 20 mg PO DAILY 0RF propranolol 60 mg capsule,extended release 24 hr 60 mg PO DAILY 0RF Natural Daily Fiber 3.4 gram/5.8 gram powder 1 pwd PO DAILY 0RF Spiriva Respimat 2.5 mcg/actuation mist 2 puff inhalation DAILY 0RF ferrous gluconate 324 mg (37.5 mg iron) tablet 324 mg PO DAILY 0RF Calcium 600 + D(3) 600 mg calcium- 200 unit Capsule 1 cap PO DAILY 0RF albuterol sulfate [ProAir HFA] 8.5 GM HFA aerosol inhaler 2 puff Inhalation Q4H Qty: 0 0RF Discharge Instructions Instructions: Amoxicillin/Clavulanate Potassium (By mouth), Azithromycin (By mouth), Pneumonia (ED), Acute Cough (ED) Additional Instructions: Please return immediately to the emergency department if you develop any new or worsening symptoms, if your condition does not improve as expected, or if you become otherwise concerned. It is extremely important that you call soon as possible to make an appointment to be seen in follow-up for this visit by your primary care doctor. Referrals: Edgar Marie [Primary Care Provider] - Discharge Data Discharge Date/Time-TO BE ENTERED AT DEPARTURE: 12/03/21 14:06 Medical Decision Making Marleny Martin is a 81-year-old man with a history of prostate cancer in the past now in remission, chronic kidney disease, hypertension, restrictive lung disease presenting to the emergency department with cough and shortness of breath. Patient reports that he has had 1 week of cough productive of yellow sputum accompanied by shortness of breath that is worse with exertion. Patient reports that shortness of breath is not worse with lying down, however when he lies flat in bed he wakes up in the middle the night coughing and then moved to recliner. Patient reports that he has had pneumonia twice in the past he reports last time was approximately 1 year ago, and states that his symptoms feel the same now. Patient reports that he had a COVID test performed on 11/29/2021 but has not yet received the results of it. He is triple vaccinated for COVID. He denies fever, pain, vomiting, diarrhea, numbness, focal weakness, rash, swelling. Decreased appetite, has been drinking fluid. On exam patient is well and nontoxic-appearing. Normal work of breathing. Lungs clear to auscultation. Occasional cough noted. No orthopnea on exam table. No lower extremity edema or posterior calf tenderness to palpation. Concern for bacterial pneumonia, Covid, metabolic/lyte derangement, CHF, other. Doubt ACS, PE. Exam/history is not consistent with acute aortic process, sepsis at this time. Plan for EKG, IV placement, screening labs, chest x-ray. Labs reviewed, D-dimer elevated, WBC 10.15, lactate 1.2, anion gap 11.6, creatinine 1.8, troponin negative, BNP 807. Chest x-ray negative for acute process, plan for CT chest given elevated D-dimer. CT chest negative. Concern for bronchitis, possible developing bacterial respiratory process given overall clinical picture. Plan for antibiotics, outpatient follow-up. I had a discussion with Patient regarding return to emergency department precautions, home care, and importance of outpatient follow-up. Pt verbalizes understanding of the plan and is amenable. Patient discharged to home with clear plan for outpatient follow-up. All questions were answered. Disposition decision was made weighing the risks and benefits of hospitalization versus outpatient treatment, the risk for further decompensation, and the patient's wishes. Medical Records Medical records reviewed: Yes I reviewed the patient's medical records. Imaging Data Radiologic Study: Attestation: I personally reviewed and interpreted this imaging study as follows: Radiologist's impression: EXAM:? XR PORTABLE CHEST AP CLINICAL HISTORY:? SOB, cough TECHNIQUE:? 2D digital imaging was performed. COMPARISON:? CR XR CHEST 2V PA ? LATERAL from 02/11/2019 FINDINGS: Portable upright exam. Very low lung volumes, similar to prior.? Heart size is within normal limits.? Chronic fibrotic changes.? No change in increased streaky densities.? No gross area consolidation, effusion or? pneumothorax. IMPRESSION: Severe fibrotic changes.? Low lung volumes limits the exam.? No gross acute pulmonary findings. EXAM: ? CT CHEST PE CTA CLINICAL HISTORY: ? SOB, cough. TECHNIQUE:? Imaging Protocol:? Axial CT angiography was performed with multi- slice acquisition and multi-planar and/or 3D reconstructions. CONTRAST MATERIAL:? Intravenous: Omnipaque 350 Contrast volume:70 ml COMPARISON:? CT CHEST WITHOUT CONTRAST from 09/04/2016 CT RENAL COLIC WO CONTRAST from 02/13/2017 CR XR PORTABLE CHEST AP from 12/03/2021 FINDINGS: Pulmonary Arteries: No evidence of filling defect to suggest pulmonary emboli. Tracheobronchial tree: Patent where visualized. Mediastinum and Keila: No dominant adenopathy or fluid collection. Pulmonary parenchyma: Limited evaluation due to respiratory motion, particularly at the lung bases.? Fibrotic changes are noted, greater peripherally..? No consolidation or dominant measurable mass. Pleura: No effusion or pneumothorax. Heart: The heart is mildly? dilated.? Mild coronary artery calcifications are seen. Aorta: Thoracic aorta non-dilated.? No aneurysm.? No dissection.? Mild atherosclerotic changes. Upper abdomen:? Limited evaluation due to motion.? Question of gallstones.? No abnormal gallbladder distention or visible wall thickening.? Pancreas somewhat atrophic. Bones: Prominent flowing osteophytes. IMPRESSION: No evidence of pulmonary embolism. Limited evaluation of the lung parenchyma due to respiratory motion.? Fibrotic changes are present.? No definite superimposed infiltrates. Lab Data Lab results reviewed: Yes I reviewed the patient's lab results. Labs: 12/03/21 10:30 Blood Blood Culture - Final NO GROWTH 120 HOURS 12/03/21 10:19 Blood Blood Culture - Final NO GROWTH 120 HOURS Laboratory Tests Range/Units 12/03/21 12/03/21 12/03/21 10:08 10:19 10:19 WBC (4.4-10.8) 10^3/uL RBC (4.36-5.78) 10^6/uL Hgb (13.5-17.5) g/dL Hct (40.0-50.0) % MCV (80-95) fL MCH (27.0-33.0) pg MCHC (32.0-36.0) % RDW (11.8-14.1) % Plt Count (130-400) 10^3/uL MPV (8.0-11.0) fL Immature Gran % Neutrophils % Lymphocytes % Monocytes % Eosinophils % Basophils % Nucleated RBC % % Absolute Neutrophils (1.2-6.7) 10^3/uL Absolute Lymphocytes (1.2-3.4) 10^3/uL Absolute Monocytes (0.1-0.8) 10^3/uL Absolute Eosinophils (0.0-0.7) 10^3/uL Absolute Basophils (0.0-0.2) 10^3/uL D-Dimer (<500) ng/mlFEU VBG Lactate (0.6-1.4) mmol/L 1.2 Sodium (136-145) mmol/L 140 Potassium (3.5-5.1) mmol/L 3.9 Chloride (98-107) mmol/L 105 Carbon Dioxide (21.0-32.0) mmol/L 23.4 Anion Gap (3-11) mmol/L 11.6 H BUN (7-18) mg/dL 31 H Creatinine (0.70-1.30) mg/dL 1.8 H Estimated GFR/1.73 m2 (mL/min/1.73m2) 36.58 Glucose (74-106) mg/dL 112 H Calcium (8.5-10.1) mg/dL 8.7 Total Bilirubin (0.2-1.0) mg/dL 1.9 H AST (15-37) U/L 52 H ALT (16-63) U/L 45 Alkaline Phosphatase (46-116) U/L 157 H Troponin I (<or=60) ng/L NT-Pro-B Natriuret Pep (<300) pg/mL Total Protein (6.4-8.2) g/dL 9.2 H Albumin (3.4-5.0) g/dL 2.4 L COVID-19 Source Nasopharynx SARS-CoV-2 (PCR) (Negative) Negative Influenza Type A (PCR) (Negative) Negative Influenza Type B (PCR) (Negative) Negative RSV (PCR) (Negative) Negative Range/Units 12/03/21 12/03/21 12/03/21 10:19 10:19 10:19 WBC (4.4-10.8) 10^3/uL 10.15 RBC (4.36-5.78) 10^6/uL 4.15 L Hgb (13.5-17.5) g/dL 12.6 L Hct (40.0-50.0) % 38.2 L MCV (80-95) fL 92.0 MCH (27.0-33.0) pg 30.4 MCHC (32.0-36.0) % 33.0 RDW (11.8-14.1) % 12.8 Plt Count (130-400) 10^3/uL 124 L MPV (8.0-11.0) fL 12.9 H Immature Gran % 0.8 Neutrophils % 72.0 Lymphocytes % 12.9 Monocytes % 10.0 Eosinophils % 3.1 Basophils % 1.2 Nucleated RBC % % 0 Absolute Neutrophils (1.2-6.7) 10^3/uL 7.32 H Absolute Lymphocytes (1.2-3.4) 10^3/uL 1.31 Absolute Monocytes (0.1-0.8) 10^3/uL 1.01 H Absolute Eosinophils (0.0-0.7) 10^3/uL 0.31 Absolute Basophils (0.0-0.2) 10^3/uL 0.12 D-Dimer (<500) ng/mlFEU 930 H VBG Lactate (0.6-1.4) mmol/L Sodium (136-145) mmol/L Potassium (3.5-5.1) mmol/L Chloride (98-107) mmol/L Carbon Dioxide (21.0-32.0) mmol/L Anion Gap (3-11) mmol/L BUN (7-18) mg/dL Creatinine (0.70-1.30) mg/dL Estimated GFR/1.73 m2 (mL/min/1.73m2) Glucose (74-106) mg/dL Calcium (8.5-10.1) mg/dL Total Bilirubin (0.2-1.0) mg/dL AST (15-37) U/L ALT (16-63) U/L Alkaline Phosphatase (46-116) U/L Troponin I (<or=60) ng/L < 50 NT-Pro-B Natriuret Pep (<300) pg/mL 807 H Total Protein (6.4-8.2) g/dL Albumin (3.4-5.0) g/dL COVID-19 Source SARS-CoV-2 (PCR) (Negative) Influenza Type A (PCR) (Negative) Influenza Type B (PCR) (Negative) RSV (PCR) (Negative) ECG Data Attestation: I personally reviewed and interpreted this ECG (s) as follows: Interpretation: EKG shows sinus rhythm at 75, normal axis, no acute ischemic changes, nondiagnostic EKG HPI General Mode of arrival: ambulatory . Date/Time Provider Initiated Documentation: 12/03/21 09:17 . Limitations to Documentation: no limitations . Information obtained by: patient, RN notes reviewed and old records reviewed . HPI Narrative: Marleny Martin is a 81-year-old man with a history of prostate cancer in the past now in remission, chronic kidney disease, hypertension, restrictive lung disease presenting to the emergency department with cough and shortness of breath. Patient reports that he has had 1 week of cough productive of yellow sputum accompanied by shortness of breath that is worse with exertion. Patient reports that shortness of breath is not worse with lying down, however when he lies flat in bed he wakes up in the middle the night coughing and then moved to recliner. Patient reports that he has had pneumonia twice in the past he reports last time was approximately 1 year ago, and states that his symptoms feel the same now. Patient reports that he had a COVID test performed on 11/29/2021 but has not yet received the results of it. He is triple vaccinated for COVID. He denies fever, pain, vomiting, diarrhea, numbness, focal weakness, rash, swelling. Decreased appetite, has been drinking fluid. Related Data Home Medications Medication Instructions Recorded Confirmed aspirin 81 mg chewable tablet 81 mg PO DAILY tab-cap 02/25/17 12/03/21 losartan 50 mg tablet 100 mg PO DAILY tab-cap 02/25/17 12/03/21 magnesium oxide 250 mg PO DAILY AM 02/25/17 12/03/21 calcium carbonate 600 mg-vitamin 1 cap PO DAILY 09/03/18 12/03/21 D3 5 mcg (200 unit) capsule (Calcium 600 + D(3)) albuterol sulfate 90 mcg/actuation 2 puff INHALATION Q4H #0 inhaler 02/13/19 12/03/21 aerosol inhaler (ProAir HFA) ferrous gluconate 324 mg (37.5 mg 324 mg PO DAILY 05/31/21 12/03/21 iron) tablet omeprazole 20 mg capsule,delayed 20 mg PO DAILY 05/31/21 12/03/21 release propranolol 60 mg capsule,24 60 mg PO DAILY 05/31/21 12/03/21 hr,extended release psyllium husk (aspartame) 3.4 1 pwd PO DAILY g 05/31/21 12/03/21 gram/5.8 gram oral powder (Natural Daily Fiber) tiotropium bromide 2.5 2 puff INHALATION DAILY 05/31/21 12/03/21 mcg/actuation mist for inhalation (Spiriva Respimat) amoxicillin 875 mg-potassium 1 tab PO BID #10 tab 12/03/21 clavulanate 125 mg tablet (Augmentin) Previous Rx's Medication Instructions Recorded albuterol sulfate 90 mcg/actuation 2 puff INHALATION Q4H #0 inhaler 02/13/19 aerosol inhaler (ProAir HFA) amoxicillin 875 mg-potassium 1 tab PO BID #10 tab 12/03/21 clavulanate 125 mg tablet (Augmentin) Allergies Allergy/AdvReac Type Severity Reaction Status Date / Time ATUL Inhibitors AdvReac cough Unverified 12/03/21 09:25 General Stated Complaint: RespSymp MANGO: 3 Review of Systems Narrative: Constitutional: denies fevers Eyes: denies eye pain ENT: denies ear pain, dental pain, sore throat Cardiovascular: denies chest pain, edema Respiratory: Reports SOB, cough GI: denies abdominal pain, vomiting, diarrhea : denies flank pain MSK: denies back pain, neck pain, arthralgias, myalgias Skin: denies rash Neuro: denies headaches, numbness, weakness PFSH All Active Problems (Updated 12/03/21 @ 13:12 by Johanna Alvarenga MD) Cough (Acute) Mixed hearing loss, 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) DVT prophylaxis (Acute) Discharge planning issues (Acute) Bronchospasm (Acute) Community acquired pneumonia of both lungs (Acute) History of prostate cancer (Chronic) CKD (chronic kidney disease), stage III (Chronic) Thrombocytopenia (Chronic) Rales (Chronic) Listed as basilar rales in PCP chart 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 Father Cardiovascular disease Brother No problems noted. 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 Do you feel safe at home: Yes Do you feel safe in your relationship?: Yes Exam Narrative Exam Narrative: Constitutional: well and [id number], pleasant, conversing normally, occasional cough HENT: head atraumatic/normocephalic/normal inspection, hearing aids in place, mucous membranes moist Eyes: conjunctiva normal, sclera normal, pupils 3mm b/l Neck: no stridor, normal ROM, trachea midline Chest: normal inspection Resp: normal work of breathing, LCTAB Cardio: normal rate, normal rhythm, no murmur appreciated, no orthopnea Back: normal inspection, no rash Skin: warm, dry, normal color, no rash Neuro: alert, not altered, grossly non-focal, normal tone Ext: no edema, no posterior calf tenderness to palpation Psych: normal mood, normal affect, normal behavior Course Vital Signs Vital signs: Vital Signs Temperature 36.7 C 12/03/21 09:17 Pulse 78 12/03/21 09:17 Respiratory Rate 12/03/21 09:17 Blood Pressure 142/66 H 12/03/21 09:17 Pulse Oximetry 96 12/03/21 09:17 Temperature 36.7 C 12/03/21 09:17 Temperature Source Temporal Artery Scan 12/03/21 09:17 Pulse 78 12/03/21 09:17 Respiratory Rate 22 12/03/21 09:17 Respiratory Effort 12/03/21 09:28 Respiratory Depth Normal 12/03/21 09:28 Blood Pressure 142/66 H 12/03/21 09:17 Blood Pressure Position Sitting 12/03/21 09:17 Pulse Oximetry 96 12/03/21 09:17 Oxygen Delivery Method Room Air 12/03/21 09:17 Oxygen Flow Rate 0 12/03/21 09:17 Pain Level 0 12/03/21 09:17 Lab/Test Results Lab/Test Results: 12/03/21 09:56 Blood Blood Culture - Pending 12/03/21 09:56 Blood Blood Culture - Pending
[2021-12-03 10:29] LABS: Lactate 1.2 mmol/L (0.6-1.4)
[2021-12-03 10:30] LABS: Abs Immature Grans 0.08 10^3/uL (0.0-0.06); Absolute Basophil Count 0.12 10^3/uL (0.0-0.2); Absolute Eosinophil Count 0.31 10^3/uL (0.0-0.7); Absolute Lymphocyte Count 1.31 10^3/uL (1.2-3.4); Absolute Monocyte Count 1.01 10^3/uL (0.1-0.8); Absolute Neutrophil Count 7.32 10^3/uL (1.2-6.7); Basophils % 1.2; Eosinophils % 3.1; HCT 38.2 % (40.0-50.0); HGB 12.6 g/dL (13.5-17.5); Immature Grans % 0.8; Lymphocytes % 12.9; MCH 30.4 pg (27.0-33.0); MPV 12.9 fL (8.0-11.0); Nucleated RBC 0 %; Platelet Count 124 10^3/uL (130-400); RBC 4.15 10^6/uL (4.36-5.78); RDW 12.8 % (11.8-14.1); RDW-SD 43.3 fL; WBC 10.15 10^3/uL (4.4-10.8)
[2021-12-03 10:31] LABS: Source Nasopharynx
[2021-12-03 10:44] LABS: ALT 45 U/L (16-63); AST 52 U/L (15-37); Albumin 2.4 g/dL (3.4-5.0); Alkaline Phosphatase 157 U/L (46-116); Anion Gap 11.6 mmol/L (3-11); BUN 31 mg/dL (7-18); Bilirubin, Total 1.9 mg/dL (0.2-1.0); CO2 23.4 mmol/L (21.0-32.0); CREATININE 1.8 mg/dL (0.70-1.30); Calcium 8.7 mg/dL (8.5-10.1); Chloride 105 mmol/L (98-107); Estimated GFR 36.58 (mL/min/1.73m2); Glucose 112 mg/dL (74-106); Potassium 3.9 mmol/L (3.5-5.1); Sodium 140 mmol/L (136-145); Total Protein 9.2 g/dL (6.4-8.2)
[2021-12-03 10:53] LABS: NT-proBNP 807 pg/mL (<300); Troponin I < 50 ng/L (<or=60)
[2021-12-03 11:13] LABS: COVID-19 PCR Negative (Negative); Influenza A PCR Negative (Negative); Influenza B PCR Negative (Negative); RSV PCR Negative (Negative)
--- NOTE | 2021-12-03 11:38 | DI.RAD_ITS ---
Exam(s) XR PORTABLE CHEST AP EXAM: XR PORTABLE CHEST AP CLINICAL HISTORY: SOB, cough TECHNIQUE: 2D digital imaging was performed. COMPARISON: CR XR CHEST 2V PA LATERAL from 02/11/2019 FINDINGS: Portable upright exam. Very low lung volumes, similar to prior. Heart size is within normal limits. Chronic fibrotic palacios es. No change in increased streaky densities. No gross area consolidation, effusion or pneumothora x. IMPRESSION: Severe fibrotic changes. Low lung volumes limits the exam. No gross acute pulmonary findings. DATA REPOSITORY: RADIATION DOSE DELIVERED:
[2021-12-03 11:46] LABS: D-Dimer 930 ng/mlFEU (<500)
--- NOTE | 2021-12-03 12:15 | DI.CT_ITS ---
Exam(s) CT CHEST PE CTA EXAM: CT CHEST PE CTA CLINICAL HISTORY: SOB, cough. TECHNIQUE: Imaging Protocol: Axial CT angiography was performed with multi-slice acquisition and mu lti-planar and/or 3D reconstructions. CONTRAST MATERIAL: Intravenous: Omnipaque 350 Contrast volume:70 ml COMPARISON: CT CHEST WITHOUT CONTRAST from 09/04/2016 CT RENAL COLIC WO CONTRAST from 02/13/2017 CR XR PORTABLE CHEST AP from 12/03/2021 FINDINGS: Pulmonary Arteries: No evidence of filling defect to suggest pulmonary emboli. Tracheobronchial tree: Patent where visualized. Mediastinum and Keila: No dominant adenopathy or fluid collection. Pulmonary parenchyma: Limited evaluation due to respiratory motion, particularly at the lung bases. Fibrotic changes are noted, greater peripherally.. No consolidation or dominant measurable mass. Pleura: No effusion or pneumothorax. Heart: The heart is mildly dilated. Mild coronary artery calcifications are seen. Aorta: Thoracic aorta non-dilated. No aneurysm. No dissection. Mild atherosclerotic changes. Upper abdomen: Limited evaluation due to motion. Question of gallstones. No abnormal gallbladder d istention or visible wall thickening. Pancreas somewhat atrophic. Bones: Prominent flowing osteophytes. IMPRESSION: No evidence of pulmonary embolism. Limited evaluation of the lung parenchyma due to respiratory motio n. Fibrotic changes are present. No definite superimposed infiltrates. Findings called to Dr. Johanna Alvarenga of the emergency department. RADIATION DOSE DELIVERED: 540.51mGy.cm Total DLP DATA REPOSITORY: All CT scans at this facility are submitted to the National Radiology Data Registry (NRDR) Dose Index Registry (DIR) with the [employer] ([employer]). RADIATION OPTIMIZATION: All CT scans at this facility use at least one of these dose optimization te chniques: automated exposure control; mA and/or kV adjustment per patient size (includes targeted exa ms where dose is matched to clinical indication); or iterative reconstruction.
[2021-12-03] MEDS: Omnipaque 350 MG/ML 100 ML BTL IJ (12:51)
[2021-12-03] MEDS: Azithromycin 250 MG TAB 500 MG PO (13:11)
[2021-12-03] MEDS: Amoxicillin 875/Clav. 125 TAB PO (13:12)
[2021-12-03] MEDS: Normal Saline 500 ML IV (13:18)
== END 2021-12-03 14:06 | disposition home or self-care (01) ==
PROVIDERS: Emergency Provider Student in an Organized Health Care Education/Training Program; PCP Family Medicine
DX: R05.1 Acute cough (principal); R79.1 Abnormal coagulation profile; R06.02 Shortness of breath; Z20.822 Contact with and (suspected) exposure to COVID-19; I12.9 Hypertensive chronic kidney disease with stage 1 through stage 4 chronic kidney disease, or unspecified chronic kidney disease; N18.30 Chronic kidney disease, stage 3 unspecified
CPT/HCPCS: 36415; 71275; 80053; 87040; 87637; 93005; 96360; 99283; 99284; 71045; 83605; 83880; 84484; 85025; 85379; 93010; J3490

== ENCOUNTER 2022-03-25 18:16 | Outpatient (REF) | payer BC, OTHER, SELFPAY ==
[2022-03-25 21:28] LABS: Abs Immature Grans 0.01 10^3/uL (0.0-0.06); Absolute Basophil Count 0.04 10^3/uL (0.0-0.2); Absolute Eosinophil Count 0.32 10^3/uL (0.0-0.7); Absolute Lymphocyte Count 0.87 10^3/uL (1.2-3.4); Absolute Monocyte Count 0.33 10^3/uL (0.1-0.8); Absolute Neutrophil Count 2.74 10^3/uL (1.2-6.7); Basophils % 0.9; Eosinophils % 7.4; HCT 34.3 % (40.0-50.0); HGB 11.1 g/dL (13.5-17.5); Immature Grans % 0.2; Lymphocytes % 20.2; MCH 30.7 pg (27.0-33.0); MCHC 32.4 % (32.0-36.0); MCV 95 fL (80-95); Monocytes % 7.7; Neutrophils % 63.6; RBC 3.62 10^6/uL (4.36-5.78); RDW 13.5 % (11.8-14.1); RDW-SD 47.2 fL; WBC 4.31 10^3/uL (4.4-10.8)
[2022-03-25 21:36] LABS: INR 1.2 (0.9-1.1); Prothrombin Time 11.6 sec (9.3-11.0)
[2022-03-25 21:43] LABS: ALT 23 U/L (16-63); AST 30 U/L (15-37); Albumin 2.5 g/dL (3.4-5.0); Alkaline Phosphatase 172 U/L (46-116); Anion Gap 9.4 mmol/L (3-11); BUN 13 mg/dL (7-18); Bilirubin, Total 0.9 mg/dL (0.2-1.0); CO2 23.6 mmol/L (21.0-32.0); CREATININE 1.3 mg/dL (0.70-1.30); Calcium 8.2 mg/dL (8.5-10.1); Chloride 108 mmol/L (98-107); Estimated GFR 53.25 (mL/min/1.73m2); Glucose 98 mg/dL (74-106); Potassium 4.2 mmol/L (3.5-5.1); Sodium 141 mmol/L (136-145); Total Protein 7.7 g/dL (6.4-8.2)
[2022-03-25 21:53] LABS: Diff Comment PLT Morph Reviewed; Platelet Count 58 10^3/uL (130-400)
== END 2022-03-25 18:17 | disposition home or self-care (01) ==
LOC: NCHCN 18:16
PROVIDERS: PCP Family Medicine; Visit Provider Family Medicine
DX: K74.60 Unspecified cirrhosis of liver (principal)
CPT/HCPCS: 80053; 85025; 85610

== ENCOUNTER 2022-05-03 15:31 | Outpatient (REF) | payer BC, OTHER, SELFPAY ==
[2022-05-03 19:41] LABS: Bilirubin Large (Negative); Blood Large (Negative); Clarity Cloudy (Clear); Glucose 100 mg/dL (Negative); HCT 34.8 % (40.0-50.0); HGB 11.6 g/dL (13.5-17.5); Ketones 40 mg/dL (Negative); Leukocyte Esterase Large (Negative); MCH 30.7 pg (27.0-33.0); MCHC 33.3 % (32.0-36.0); MCV 92 fL (80-95); Nitrite Negative (Negative); RBC 3.78 10^6/uL (4.36-5.78); RDW 12.7 % (11.8-14.1); RDW-SD 42.9 fL; WBC 4.44 10^3/uL (4.4-10.8); pH 5.5 (5-8)
[2022-05-03 19:46] LABS: C & S Indicated? Yes; RBC >50 HPF (0-2)
[2022-05-03 19:58] LABS: ALT 19 U/L (16-63); AST 29 U/L (15-37); Albumin 2.7 g/dL (3.4-5.0); Alkaline Phosphatase 162 U/L (46-116); Anion Gap 9.1 mmol/L (3-11); BUN 17 mg/dL (7-18); Bilirubin, Total 0.9 mg/dL (0.2-1.0); CO2 21.9 mmol/L (21.0-32.0); CREATININE 1.4 mg/dL (0.70-1.30); Calcium 8.1 mg/dL (8.5-10.1); Chloride 109 mmol/L (98-107); Estimated GFR 48.89 (mL/min/1.73m2); Glucose 150 mg/dL (74-106); Sodium 140 mmol/L (136-145); Total Protein 7.9 g/dL (6.4-8.2)
[2022-05-03 20:06] LABS: Platelet Count 59 10^3/uL (130-400)
[2022-05-06 09:28] LABS: PSA, Diagnostic 0.3 ng/mL (<=6.5)
== END 2022-05-03 15:32 | disposition home or self-care (01) ==
LOC: NCHCN 15:31
PROVIDERS: PCP Family Medicine; Visit Provider Family Medicine
DX: C61 Malignant neoplasm of prostate (principal); R06.02 Shortness of breath; K74.60 Unspecified cirrhosis of liver; R31.0 Gross hematuria
CPT/HCPCS: 80053; 85027; 81003; 81015; 84153; 87086

== ENCOUNTER → 2022-05-13 02:04 | Outpatient (CLI) | payer BC, OTHER, SELFPAY ==
--- NOTE | 2022-05-13 | DI.US_ITS ---
Exam(s) US ABDOMEN LIMITED EXAM: US ABDOMEN LIMITED CLINICAL HISTORY: HCC SCREENING, CIRRHOSIS, K74.60 TECHNIQUE: Ultrasound abdomen performed using standard protocol. COMPARISON: US US ABDOMEN from 03/03/2019 FINDINGS: There is no ascites evident. LIVER: There are no hepatic lesions evident nor dilatation of intrahepatic ducts. GALLBLADDER/BILIARY: There are 2 gallstones noted. One is small bowel and measures 1.1 cm. The othe r appears nonmobile and located in the gallbladder neck. It measures 0.9 cm. Gallbladder wall does not appear edematous. There is no pericholecystic fluid. Patient was apparently not tender over thi s area. The common hepatic duct isnot dilated, measuring 2-3mm at the level of jane hepatis. PANCREAS: There is no evidence of pancreatic mass nor dilatation of the pancreatic duct. Pancreatic tail was not well visualized on this study. RIGHT KIDNEY:No evidence of solid mass, calculus, nor hydronephrosis. No cortical cysts evident. ABDOMINAL AORTA AND IVC: Visualized portions exhibit normal caliber. IMPRESSION: 1. Cholelithiasis. There are at least 2 gallstones. No gallbladder wall edema and the patient was apparently not tender over this area during scanning today. The CBD is not dilated. 2. No other significant ultrasound findings in the right upper quadrant. 3. Pancreatic tail was not able to be adequately visualized on this study DATA REPOSITORY:
== END ==
PROVIDERS: PCP Family Medicine; Visit Provider Family Medicine
DX: Z12.89 Encounter for screening for malignant neoplasm of other sites (principal); K80.20 Calculus of gallbladder without cholecystitis without obstruction; K74.60 Unspecified cirrhosis of liver
CPT/HCPCS: 76705

== ENCOUNTER → 2022-06-25 02:29 | Outpatient (CLI) | payer OTHER, SELFPAY ==
--- NOTE | 2022-06-25 07:00 | DI.US_ITS ---
Exam(s) US RENAL EXAM: US RENAL CLINICAL HISTORY: GROSS HEMATURIA, R31.0. TECHNIQUE: Hernandez scale, color and spectral Doppler were used. COMPARISON: CT RENAL COLIC WO CONTRAST from 02/13/2017 FINDINGS: Renal size in cm: Right: 10.4 left: 10.5, duplex left collecting system. Echogenicity: Normal Hydronephrosis: No Cyst or mass: No Nephrolithiasis: No Bladder:Not well distended. Question of trabeculated bladder wall. No gross evidence of a mass or s tone. Prostate not visualized. Ureteral jets not visualized. Prevoid vol:24 cc Postvoid vol: 0 IMPRESSION: No evidence of stones or hydronephrosis. Duplex left collecting system. Bladder not well evaluated due to under distension. Question of bladder wall trabeculation versus under is distension. DATA REPOSITORY:
== END ==
PROVIDERS: PCP Family Medicine; Visit Provider Family Medicine
DX: R31.0 Gross hematuria (principal)
CPT/HCPCS: 76770

== ENCOUNTER 2022-08-27 15:22 | Outpatient (REF) | payer MEDICARE, SELFPAY ==
[2022-08-27 20:37] LABS: HCT 30.7 % (40.0-50.0); HGB 10.5 g/dL (13.5-17.5); MCH 30.9 pg (27.0-33.0); MCHC 34.2 % (32.0-36.0); MCV 90 fL (80-95); RDW 13.6 % (11.8-14.1); RDW-SD 44.9 fL; WBC 2.36 10^3/uL (4.4-10.8)
[2022-08-27 20:52] LABS: Platelet Count 57 10^3/uL (130-400)
[2022-08-27 20:57] LABS: INR 1.1 (0.9-1.1)
== END 2022-08-27 15:23 | disposition home or self-care (01) ==
LOC: LBN 15:22
PROVIDERS: PCP Family Medicine; Visit Provider Nurse Practitioner Family
DX: R31.0 Gross hematuria (principal)
CPT/HCPCS: 85027; 85610; 87086

== ENCOUNTER → 2022-08-29 13:09 | Outpatient (BNVA) | payer MEDICARE, SELFPAY | PROVIDERS: PCP Family Medicine; Referring Provider Family Medicine; Visit Provider Nurse Practitioner Gerontology | DX: Z85.46 Personal history of malignant neoplasm of prostate (principal); R31.0 Gross hematuria | CPT/HCPCS: 99214 ==

== ENCOUNTER 2022-09-17 08:37 | Emergency (ER) | payer MEDICARE, SELFPAY ==
[2022-09-17 08:29] VITALS: BP 180/64; PULSE 64; RESP 18; TEMP 36.7; O2SAT 98
--- NOTE | 2022-09-17 08:30 | DI.RAD_ITS ---
Exam(s) XR FOOT RT COMPLETE EXAM: XR FOOT RT COMPLETE CLINICAL HISTORY: pain plantar surface of calcaneus. TECHNIQUE: 2D digital imaging was performed. COMPARISON: CR RIGHT FOOT COMPLETE from 07/17/2010 FINDINGS: 3 views No evidence of fracture or diastasis of the Lisfranc joint. Moderate degenerative changes again note d in the great toe metatarsophalangeal joint. No radiopaque foreign body. No osseous lesions. No pes planus. IMPRESSION: No significant osseous findings. DATA REPOSITORY: RADIATION DOSE DELIVERED:
--- NOTE | 2022-09-17 08:39 | ED.GENADUL_ITS ---
Discharge Plan Disposition Patient Disposition: HOME Condition: Stable Discharge Details Clinical Impression: Foot pain, right Primary Care Provider: Edgar Marie ED Provider: Randolph Pruett Home Meds and New Rx's Prescriptions: New prednisone 20 mg tablet 60 mg PO DAILY 5 Days Qty: 15 0RF Continued losartan 50 MG tablet 100 mg PO DAILY aspirin 81 MG tablet,chewable 81 mg PO DAILY magnesium oxide 250 MG tablet 250 mg PO DAILY AM omeprazole 20 mg capsule,delayed release(DR/EC) 20 mg PO DAILY propranolol 60 mg capsule,extended release 24 hr 60 mg PO DAILY Spiriva Respimat 2.5 mcg/actuation mist 2 puff inhalation DAILY Calcium 600 + D(3) 600 mg calcium- 200 unit Capsule 1 cap PO DAILY albuterol sulfate [ProAir HFA] 8.5 GM HFA aerosol inhaler 2 puff Inhalation Q4H Qty: 0 0RF Discharge Instructions Instructions: Plantar Fasciitis (ED) Additional Instructions: because your history of kidney disease you should avoid taking medicine such as ibuprofen or naproxyn routinely if pain continues in a week follow up with your primaryc are provider if you feel more ill, have severe worsening pain or new symptoms such as difficulty breathing return to the emergency department Stand Alone Forms: Work Release Medical Decision Making 82 yo male with hx of ckd, prostate cancer in remission, comes in with plantar surface pain on his right foot. He states he belives it started 3 days ago while bowling, states he stumbled but did not fall and had some pain in the right foot. He has noticed pain when placing weight on his foot since. He denies any pain elsewhere, no fevers, chills, swelling, rashes. He appears well on exam. He has tenderness underneath the right calcaneus, normal sensation and pulses, full rom and no erythema or warmth, no open wounds on the foot. Suspect plantar fasciitis but will xray to evaluate for possible fracture. No findings on history or exam to suggest infectious etiology such as osteomyelitis. xray negative on my read, suspect plantar fasciitis, given his history of ckd will avoid nsaids, will trial short course of prednisone. Advised to f/u with pcp, return precautions given Differential Diagnosis Differential Diagnosis: plantar fasciitis, strain Imaging Data Radiologic Study: Attestation: I personally reviewed and interpreted this imaging study as follows: Imaging: X-Ray My impression: no acute findings HPI General Mode of arrival: EMS . Date/Time Provider Initiated Documentation: 09/17/22 08:39 . Limitations to Documentation: no limitations . Information obtained by: patient . History of Present Illness 82 year old M presents to the emergency department with the chief complaint of right foot pain, described as moderate, Quality is described as aching, Patient star pavan experiencing this day(s) (3) and it has been constant. Rest improves symptom(s), Other factors that worsen symptoms (putting weight on his foot) . Patient notes no other symptoms.. Patient did receive the following treatments prior to arrival, none Related Data Home Medications Medication Instructions Recorded Confirmed aspirin 81 mg chewable tablet 81 mg PO DAILY 02/25/17 09/17/22 losartan 50 mg tablet 100 mg PO DAILY 02/25/17 09/17/22 magnesium oxide 250 mg PO DAILY AM 02/25/17 09/17/22 calcium carbonate 600 mg-vitamin 1 cap PO DAILY 09/03/18 09/17/22 D3 5 mcg (200 unit) capsule (Calcium 600 + D(3)) albuterol sulfate 90 mcg/actuation 2 puff inhalation Q4H ##0 02/13/19 09/17/22 aerosol inhaler (ProAir HFA) omeprazole 20 mg capsule,delayed 20 mg PO DAILY 05/31/21 09/17/22 release propranolol 60 mg capsule,24 60 mg PO DAILY 05/31/21 09/17/22 hr,extended release tiotropium bromide 2.5 2 puff inhalation DAILY 05/31/21 09/17/22 mcg/actuation mist for inhalation (Spiriva Respimat) prednisone 20 mg tablet 60 mg PO DAILY 5 days #15 tabs 09/17/22 Previous Rx's Medication Instructions Recorded albuterol sulfate 90 mcg/actuation 2 puff inhalation Q4H ##0 02/13/19 aerosol inhaler (ProAir HFA) prednisone 20 mg tablet 60 mg PO DAILY 5 days #15 tabs 09/17/22 Allergies Allergy/AdvReac Type Severity Reaction Status Date / Time ATUL Inhibitors AdvReac cough Unverified 09/17/22 08:36 General Stated Complaint: Orthopedic MANGO: 4 Review of Systems All systems reviewed & are unremarkable except as noted in HPI and below Constitutional Constitutional: Denies chills, Denies fever(s) and Denies weakness Cardiovascular Cardiovascular: Denies chest pain and Denies dyspnea Respiratory Respiratory: Denies dyspnea Gastrointestinal Gastrointestinal: Denies abdominal pain, Denies nausea and Denies vomiting Musculoskeletal Musculoskeletal: Denies joint swelling Integumentary/Breasts Skin/Breast: Denies rash Neurologic Neurologic: Denies weakness PFSH All Active Problems (Updated 09/17/22 @ 09:16 by Randolph Pruett MD) Foot pain, right (Acute) Mixed hearing loss, 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) DVT prophylaxis (Acute) Discharge planning issues (Acute) Bronchospasm (Acute) Community acquired pneumonia of both lungs (Acute) History of prostate cancer (Chronic) CKD (chronic kidney disease), stage III (Chronic) Thrombocytopenia (Chronic) Rales (Chronic) Listed as basilar rales in PCP chart 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 Father Cardiovascular disease Brother No problems noted. 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 Do you feel safe at home: Yes Do you feel safe in your relationship?: Yes Exam Const General: no acute distress Orientation: alert HENMT Head: normal to inspection Ears: external ears normal General nose exam: external nose normal Mouth: moist mucous membranes Eyes General: appearance normal, both eyes and all related structures Neck Neck: normal visual inspection Resp Effort & Inspection: normal respiratory effort and able to speak in complete sentences Cardio Rate: regular rate Skin General skin exam: no rashes or lesions noted Neuro General: patient alert and patient oriented x3 Extrem General: normal to inspection, full ROM and capillary refill normal Psych Mental Status: mental status grossly normal Course Vital Signs Vital signs: Vital Signs Temperature 36.7 C 09/17/22 08:29 Pulse 64 09/17/22 08:29 Respiratory Rate 18 09/17/22 08:29 Blood Pressure 180/64 H 09/17/22 08:29 Pulse Oximetry 98 09/17/22 08:29 Temperature 36.7 C 09/17/22 08:29 Temperature Source Oral 09/17/22 08:29 Pulse 64 09/17/22 08:29 Respiratory Rate 18 09/17/22 08:29 Respiratory Effort Non-Labored 09/17/22 08:34 Blood Pressure 180/64 H 09/17/22 08:29 Blood Pressure Position Sitting 09/17/22 08:29 Pulse Oximetry 98 09/17/22 08:29 Oxygen Delivery Method Room Air 09/17/22 08:29 Oxygen Flow Rate 0 09/17/22 08:29 Pain Level 10 09/17/22 08:37
== END 2022-09-17 09:23 | disposition home or self-care (01) ==
PROVIDERS: Emergency Provider Emergency Medicine; PCP Family Medicine
DX: M79.671 Pain in right foot (principal)
CPT/HCPCS: 99283; 73630; 99284

== ENCOUNTER 2022-09-19 11:29 | Outpatient (REF) | payer MEDICARE, SELFPAY ==
[2022-09-19 15:15] LABS: Abs Immature Grans 0.08 10^3/uL (0.0-0.06); Absolute Basophil Count 0.01 10^3/uL (0.0-0.2); Absolute Lymphocyte Count 0.32 10^3/uL (1.2-3.4); Absolute Monocyte Count 0.12 10^3/uL (0.1-0.8); Absolute Neutrophil Count 7.99 10^3/uL (1.2-6.7); Basophils % 0.1; HCT 31.7 % (40.0-50.0); HGB 10.6 g/dL (13.5-17.5); Immature Grans % 0.9; Lymphocytes % 3.8; MCHC 33.4 % (32.0-36.0); MCV 93 fL (80-95); MPV 13.3 fL (8.0-11.0); Monocytes % 1.4; Neutrophils % 93.8; RBC 3.42 10^6/uL (4.36-5.78); RDW 13.3 % (11.8-14.1); RDW-SD 45.6 fL; WBC 8.52 10^3/uL (4.4-10.8)
[2022-09-19 15:23] LABS: INR 1.2 (0.9-1.1); Prothrombin Time 12.2 sec (9.3-11.0)
[2022-09-19 15:45] LABS: ALT 19 U/L (16-63); AST 24 U/L (15-37); Albumin 2.5 g/dL (3.4-5.0); Alkaline Phosphatase 149 U/L (46-116); Anion Gap 9.7 mmol/L (3-11); BUN 29 mg/dL (7-18); Bilirubin, Total 0.5 mg/dL (0.2-1.0); CO2 22.3 mmol/L (21.0-32.0); CREATININE 1.7 mg/dL (0.70-1.30); Calcium 8.9 mg/dL (8.5-10.1); Chloride 105 mmol/L (98-107); Estimated GFR 40.25 (mL/min/1.73m2); Glucose 247 mg/dL (74-106); Potassium 4.9 mmol/L (3.5-5.1); Sodium 137 mmol/L (136-145); Total Protein 8.3 g/dL (6.4-8.2)
[2022-09-19 15:51] LABS: Platelet Count 60 10^3/uL (130-400)
== END 2022-09-19 11:30 | disposition home or self-care (01) ==
LOC: NCHCN 11:29
PROVIDERS: PCP Family Medicine; Visit Provider Family Medicine
DX: C61 Malignant neoplasm of prostate (principal); N18.31 Chronic kidney disease, stage 3a; D63.1 Anemia in chronic kidney disease; R31.0 Gross hematuria
CPT/HCPCS: 80053; 85025; 85610

== ENCOUNTER → 2022-11-07 09:40 | Outpatient (BNVA) | payer MEDICARE, SELFPAY | PROVIDERS: PCP Family Medicine; Referring Provider Family Medicine; Visit Provider Urology | DX: R31.0 Gross hematuria (principal); Z85.46 Personal history of malignant neoplasm of prostate | CPT/HCPCS: 52000; 81003; 99214 ==

== ENCOUNTER 2022-11-13 18:01 | Inpatient (IN) | payer MEDICARE, SELFPAY ==
[2022-11-13] VITALS (28 sets, daily range): BP systolic 128–184; BP diastolic 51–121; PULSE 57–79; RESP 19–20; TEMP 36.8–36.9; O2SAT 96–99
[2022-11-13] MEDS: Lidocaine 2% Jelly 6 ML SYR (20:53)
[2022-11-13 21:25] LABS: Bilirubin Negative (Negative); Blood Moderate (Negative); Clarity Cloudy (Clear); Glucose Negative (Negative); Ketones Negative (Negative); Leukocyte Esterase Negative (Negative); Nitrite Negative (Negative); Specific Gravity 1.025 (1.005-1.025); Urobilinogen 0.2 EU/dL (Up TO 0.2)
[2022-11-13 21:31] LABS: ALT 20 U/L (16-63); AST 32 U/L (15-37); Albumin 2.7 g/dL (3.4-5.0); Alkaline Phosphatase 166 U/L (46-116); Anion Gap 8.8 mmol/L (3-11); BUN 20 mg/dL (7-18); Bilirubin, Total 0.9 mg/dL (0.2-1.0); CO2 22.2 mmol/L (21.0-32.0); CREATININE 1.4 mg/dL (0.70-1.30); Calcium 8.6 mg/dL (8.5-10.1); Chloride 106 mmol/L (98-107); Estimated GFR 50.81 (mL/min/1.73m2); Glucose 155 mg/dL (74-106); Potassium 4.7 mmol/L (3.5-5.1); Sodium 137 mmol/L (136-145)
[2022-11-13 21:32] LABS: C & S Indicated? Yes; RBC >50 HPF (0-2)
[2022-11-13 22:10] LABS: Source Nasal/Nares
--- NOTE | 2022-11-13 22:14 | W.ED.GENAD ---
Discharge Plan Disposition Patient Disposition: Admit to [facility] Condition: Serious Discharge Details Clinical Impression: Hematuria, Acute urinary retention Admit Date/Time: 11/13/22 21:43 Admit Provider: Kings Segundo Attending Provider: Kings Segundo Primary Care Provider: Edgar Marie ED Provider: Blake Alvarenga Discharge Data Discharge Date/Time-TO BE ENTERED AT DEPARTURE: 11/13/22 22:50 Medical Decision Making 82-year-old male with history of prostate cancer, here with gross hematuria and urinary retention. Bladder scan was performed by nursing and greater than 500 mL of urinary retention after urinating. Three-way urinary catheter was placed by nursing and bladder irrigation performed. Urine is clearing but still with some hematuria. Plan for admission for continued bladder irrigation and urology consultation. Spoke with the hospitalist on-call, discussed ED presentation and course, he will admit the patient. Care transition at time of admission. Lab Data Lab results reviewed: Yes I reviewed the patient's lab results. Labs: 11/13/22 20:50 Urine - Reflex from Ua Urine Culture - Pending Laboratory Tests Range/Units 11/13/22 11/13/22 11/13/22 20:50 21:08 21:55 Sodium (136-145) mmol/L 137 Potassium (3.5-5.1) mmol/L 4.7 Chloride (98-107) mmol/L 106 Carbon Dioxide (21.0-32.0) mmol/L 22.2 Anion Gap (3-11) mmol/L 8.8 BUN (7-18) mg/dL 20 H Creatinine (0.70-1.30) mg/dL 1.4 H Est GFR (CKD-EPI 2020) (mL/min/1.73m2) 50.81 Glucose (74-106) mg/dL 155 H Calcium (8.5-10.1) mg/dL 8.6 Total Bilirubin (0.2-1.0) mg/dL 0.9 AST (15-37) U/L 32 ALT (16-63) U/L 20 Alkaline Phosphatase (46-116) U/L 166 H Total Protein (6.4-8.2) g/dL 8.0 Albumin (3.4-5.0) g/dL 2.7 L Urine Color (Yellow) Red Urine Clarity (Clear) Cloudy Urine pH (5-8) 7.0 Ur Specific [place] (1.005-1.025) 1.025 Urine Protein (Negative) mg/dL >=300 H Urine Ketones (Negative) mg/dL Negative Urine Blood (Negative) Moderate H Urine Nitrite (Negative) Negative Urine Bilirubin (Negative) Negative Urine Urobilinogen (Up TO 0.2) EU/dL 0.2 Ur Leukocyte Esterase (Negative) Negative Urine RBC (0-2) HPF >50 H Urine WBC Not Applicable Ur Epithelial Cells Not Applicable Urine Crystals Not Applicable Urine Bacteria Not Applicable Urine Mucus Not Applicable Ur Culture Indicated? Yes Urine Glucose (Negative) mg/dL Negative COVID-19 Source Nasal/Nares HPI General Date/Time Provider Initiated Documentation: 11/13/22 18:47. HPI Narrative: 82-year-old male with history of prostate cancer status post beam radiation, here with chief complaint of hematuria. Patient notes difficulty urinating and hematuria today. He has associated bilateral lower abdominal pain. Symptoms are severe. No modifiers. Prior to my evaluation he was able to urinate and had gross blood and still feels as though he has to urinate. Patient is being followed by [facility] urology with plan for transurethral resection. Related Data Home Medications Medication Instructions Recorded Confirmed aspirin 81 mg chewable tablet 81 mg PO DAILY 02/25/17 11/13/22 losartan 50 mg tablet 100 mg PO DAILY 02/25/17 11/13/22 magnesium oxide 250 mg PO DAILY AM 02/25/17 11/13/22 calcium carbonate 600 mg-vitamin 1 cap PO DAILY 09/03/18 11/13/22 D3 5 mcg (200 unit) capsule (Calcium 600 + D(3)) albuterol sulfate 90 mcg/actuation 2 puff inhalation Q4H ##0 02/13/19 11/13/22 aerosol inhaler (ProAir HFA) omeprazole 20 mg capsule,delayed 20 mg PO DAILY 05/31/21 11/13/22 release propranolol 60 mg capsule,24 60 mg PO DAILY 05/31/21 11/13/22 hr,extended release tiotropium bromide 2.5 2 puff inhalation DAILY 05/31/21 11/13/22 mcg/actuation mist for inhalation (Spiriva Respimat) ciprofloxacin HCl 500 mg tablet 500 mg PO BID #10 tabs 11/16/22 (Cipro) Previous Rx's Medication Instructions Recorded albuterol sulfate 90 mcg/actuation 2 puff inhalation Q4H ##0 02/13/19 aerosol inhaler (ProAir HFA) ciprofloxacin HCl 500 mg tablet 500 mg PO BID #10 tabs 11/16/22 (Cipro) Allergies Allergy/AdvReac Type Severity Reaction Status Date / Time ATUL Inhibitors AdvReac cough Unverified 11/13/22 18:09 General Stated Complaint: Urinary MANGO: 3 Review of Systems All systems reviewed & are unremarkable except as noted in HPI and below Constitutional Constitutional: Denies fever(s) Gastrointestinal Gastrointestinal: Reports abdominal pain (suprapubic) Genitourinary Genitourinary: Reports as per HPI PFSH All Active Problems (Updated 11/17/22 @ 00:01 by MANDI NAIR) Bladder tumor (Acute) Mixed hearing loss, 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) Bronchospasm (Acute) Community acquired pneumonia of both lungs (Acute) History of prostate cancer (Chronic) CKD (chronic kidney disease), stage III (Chronic) Thrombocytopenia (Chronic) Rales (Chronic) Listed as basilar rales in PCP chart 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 Father Cardiovascular disease Brother No problems noted. 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 Do you feel safe at home: Yes Do you feel safe in your relationship?: Yes Exam Const General: cooperative HENMT Mouth: moist mucous membranes Eyes Conjunctivae: normal conjunctivae Sclera: normal sclerae Neck Neck: trachea midline and supple Resp Auscultation: clear to auscultation bilaterally, no rales, no rhonchi and no wheezes Cardio Rate: regular rate and not tachycardic Rhythm: regular rhythm GI Palpation: soft, not firm, no guarding, no masses, not rigid and tender suprapubicly Penis: other (Blood at meatus) Scrotum: scrotum normal Testes: normal Skin General skin exam: no rashes or lesions noted Neuro General: patient alert, patient awake and tone normal Extrem General: no edema Psych Appearance: grossly normal Mental Status: mental status grossly normal Course Vital Signs Vital signs: Vital Signs Temperature 36.8 C 11/13/22 18:02 Pulse 57 L 11/13/22 18:02 Respiratory Rate 20 11/13/22 18:02 Blood Pressure 177/66 H 11/13/22 18:02 Pulse Oximetry 99 11/13/22 18:02 Temperature 36.8 C 11/13/22 18:02 Temperature Source Temporal Artery Scan 11/13/22 18:02 Pulse 67 11/13/22 22:01 Respiratory Rate 20 11/13/22 18:02 Respiratory Effort Non-Labored 11/13/22 18:06 Blood Pressure 149/60 H 11/13/22 22:01 Blood Pressure Mean 81 11/13/22 22:01 Blood Pressure Position Sitting 11/13/22 18:02 Pulse Oximetry 96 11/13/22 22:01 Oxygen Delivery Method Room Air 11/13/22 18:02 Oxygen Flow Rate 0 11/13/22 18:02 Pain Level 9 11/13/22 18:07 Lab/Test Results Lab/Test Results: 11/13/22 20:50 Urine - Reflex from Ua Urine Culture - Pending Laboratory Tests Range/Units 11/13/22 11/13/22 11/13/22 20:50 21:08 21:55 Sodium (136-145) mmol/L 137 Potassium (3.5-5.1) mmol/L 4.7 Chloride (98-107) mmol/L 106 Carbon Dioxide (21.0-32.0) mmol/L 22.2 Anion Gap (3-11) mmol/L 8.8 BUN (7-18) mg/dL 20 H Creatinine (0.70-1.30) mg/dL 1.4 H Est GFR (CKD-EPI 2020) (mL/min/1.73m2) 50.81 Glucose (74-106) mg/dL 155 H Calcium (8.5-10.1) mg/dL 8.6 Total Bilirubin (0.2-1.0) mg/dL 0.9 AST (15-37) U/L 32 ALT (16-63) U/L 20 Alkaline Phosphatase (46-116) U/L 166 H Total Protein (6.4-8.2) g/dL 8.0 Albumin (3.4-5.0) g/dL 2.7 L Urine Color (Yellow) Red Urine Clarity (Clear) Cloudy Urine pH (5-8) 7.0 Ur Specific [place] (1.005-1.025) 1.025 Urine Protein (Negative) mg/dL >=300 H Urine Ketones (Negative) mg/dL Negative Urine Blood (Negative) Moderate H Urine Nitrite (Negative) Negative Urine Bilirubin (Negative) Negative Urine Urobilinogen (Up TO 0.2) EU/dL 0.2 Ur Leukocyte Esterase (Negative) Negative Urine RBC (0-2) HPF >50 H Urine WBC Not Applicable Ur Epithelial Cells Not Applicable Urine Crystals Not Applicable Urine Bacteria Not Applicable Urine Mucus Not Applicable Ur Culture Indicated? Yes Urine Glucose (Negative) mg/dL Negative COVID-19 Source Nasal/Nares
[2022-11-13 22:38] LABS: Abs Immature Grans 0.02 10^3/uL (0.0-0.06); Absolute Basophil Count 0.04 10^3/uL (0.0-0.2); Absolute Eosinophil Count 0.01 10^3/uL (0.0-0.7); Absolute Lymphocyte Count 0.53 10^3/uL (1.2-3.4); Absolute Monocyte Count 0.26 10^3/uL (0.1-0.8); Absolute Neutrophil Count 5.74 10^3/uL (1.2-6.7); Basophils % 0.6; Eosinophils % 0.2; HGB 9.8 g/dL (13.5-17.5); Immature Grans % 0.3; MCH 29.5 pg (27.0-33.0); MCHC 32.7 % (32.0-36.0); MCV 90 fL (80-95); MPV 12.8 fL (8.0-11.0); Monocytes % 3.9; RBC 3.32 10^6/uL (4.36-5.78); RDW 12.8 % (11.8-14.1); RDW-SD 42.5 fL
[2022-11-13 22:41] LABS: COVID-19 PCR Negative (Negative)
[2022-11-13 22:53] LABS: Diff Comment PLT Morph Reviewed; Platelet Count 70 10^3/uL (130-400)
--- NOTE | 2022-11-13 23:04 | HPE_ITS ---
Date of service: 11/13/22 Time of Service: 23:04 Assessment and Plan Assessment and plan (1) Hematuria: Status: Acute Assessment and plan: This is an 82-year-old gentleman with gross hematuria and clotting with most likely cause being a new bladder tumor which has not been diagnosed. Dr. Saxena is involved in consultation and will plan to the patient in the morning. He is n.p.o. for now. (2) Acute urinary retention: Status: Acute Assessment and plan: Secondary to blood clot with bladder wall bleeding from recently diagnosed tumors according to patient. (3) Acute blood loss anemia: Status: Acute Assessment and plan: Patient's hemoglobin did drop down below 10 g/dL when he usually is a this level and this will be trended with patient typed and screened. Transfuse if needed. The patient does appear to have CKD with chronic anemia and also thrombocytopenia which appears stable but may increase chances of bleeding. PT/INR will be checked. (4) Bladder tumor: Status: Acute Assessment and plan: Follow-up cystoscopy with urology. (5) Thrombocytopenia: Status: Chronic Assessment and plan: This appears chronic and stable but may contribute to blood loss. Most likely this is not the cause of bleeding presently with newfound tumors. History of Present Illness History of Present Illness Chief Complaint: Hung blood in urine with clots and obstruction of urination. Narrative: This is an 82-year-old male patient who has a history of prostate cancer treated in 2007 which supposedly has been cured but has recently been having gross hematuria and more recently urinary retention not been able to pass his urine over the last 2 days prior to admission. 6 months ago he began to have intermittent blood in his urine and finally did see urology 1 week ago who diagnosed some bladder lesions which may be causing bleeding with plans for cystoscopy and removal. This is per patient's history. Dr. Saxena was called about the patient's urinary obstruction with increased clots in the ED and a three-way Gardner was placed with irrigation which is now going to clear with patient more comfortable. He did drop his hemoglobin and does have blood loss anemia. He will be typed and screened. He is asymptomatic otherwise and more comfortable with a Gardner catheter in place. Dr. Saxena has been consulted and is aware of the patient being in the hospital with patient n.p.o. in case procedure is planned in the morning. Review of his other chronic medical problems appear to be fairly stable. He is a full code. Review of Systems Narrative: 13 point review of systems otherwise unrevealing or stable. Patient is fairly functional in his old age. 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 Father Cardiovascular disease Brother No problems noted. 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 Do you feel safe at home: Yes Do you feel safe in your relationship?: Yes Meds Allergies and Home Medications Allergies Allergy/AdvReac Type Severity Reaction Status Date / Time ATUL Inhibitors AdvReac cough Unverified 11/13/22 18:09 Home Medications Medication Instructions Recorded Confirmed Type aspirin 81 mg chewable tablet 81 mg PO DAILY 02/25/17 11/13/22 History losartan 50 mg tablet 100 mg PO DAILY 02/25/17 11/13/22 History magnesium oxide 250 mg PO DAILY AM 02/25/17 11/13/22 History calcium carbonate 600 mg-vitamin 1 cap PO DAILY 09/03/18 11/13/22 History D3 5 mcg (200 unit) capsule (Calcium 600 + D(3)) albuterol sulfate 90 mcg/actuation 2 puff inhalation Q4H ##0 02/13/19 11/13/22 Rx aerosol inhaler (ProAir HFA) omeprazole 20 mg capsule,delayed 20 mg PO DAILY 05/31/21 11/13/22 History release propranolol 60 mg capsule,24 60 mg PO DAILY 05/31/21 11/13/22 History hr,extended release tiotropium bromide 2.5 2 puff inhalation DAILY 05/31/21 11/13/22 History mcg/actuation mist for inhalation (Spiriva Respimat) Exam Narrative Exam Narrative: General: Patient appears appropriate for age, alert and oriented x3 and in mild distress from having a Gardner catheter in place and being in bed. He is a fair historian. HEENT: Normocephalic, eyes with pupils equal and react to light symmetrically, extraocular movement intact, sclera anicteric. Oropharynx with fair dentition and moist mucosa. Neck: Supple without JVD. Back: Stooped posture without CVA tenderness. Lungs: Fair aeration clear to auscultation percussion. Heart: Regular rate and rhythm with no appreciable murmur or gallop. Abdomen: Obese contour, firm but palpable with no focal tenderness or guarding and no rebound. Bowel sounds positive all quadrants. No appreciable hepatosplenomegaly. Genitalia/rectal: Gardner catheter in place draining clear urine with irrigation, otherwise exam deferred. Extremities: Without clubbing, cyanosis or grossly pitting edema. Patient does have sequential teds in place. Fair capillary refill. Skin: Pale, warm and dry. Neuro: Cranial nerves II to XII grossly intact, no focalizing motor deficits. Patient is hard of hearing. Psych: Normal affect and mood. No abnormal thought processes. Remote and recent memory appear to be grossly intact. Results Labs Result diagrams: 11/14/22 06:30 11/14/22 06:30 Labs: Laboratory Results - last 24 hr 11/13/22 11/13/22 11/13/22 20:50 21:08 21:55 WBC RBC Hgb Hct MCV MCH MCHC RDW Plt Count MPV Immature Gran % Neutrophils % Lymphocytes % Monocytes % Eosinophils % Basophils % Nucleated RBC % Absolute Neutrophils Absolute Lymphocytes Absolute Monocytes Absolute Eosinophils Absolute Basophils Sodium 137 Potassium 4.7 Chloride 106 Carbon Dioxide 22.2 Anion Gap 8.8 BUN 20 H Creatinine 1.4 H Est GFR (CKD-EPI 2020) 50.81 Glucose 155 H Calcium 8.6 Total Bilirubin 0.9 AST 32 ALT 20 Alkaline Phosphatase 166 H Total Protein 8.0 Albumin 2.7 L Urine Color Red Urine Clarity Cloudy Urine pH 7.0 Ur Specific [place] 1.025 Urine Protein >=300 H Urine Ketones Negative Urine Blood Moderate H Urine Nitrite Negative Urine Bilirubin Negative Urine Urobilinogen 0.2 Ur Leukocyte Esterase Negative Urine RBC >50 H Urine WBC Not Applicable Ur Epithelial Cells Not Applicable Urine Crystals Not Applicable Urine Bacteria Not Applicable Urine Mucus Not Applicable Ur Culture Indicated? Yes Urine Glucose Negative COVID-19 Source Nasal/Nares SARS-CoV-2 (PCR) Negative 11/13/22 22:31 WBC 6.60 RBC 3.32 L Hgb 9.8 L Hct 30.0 L MCV 90 MCH 29.5 MCHC 32.7 RDW 12.8 Plt Count 70 L MPV 12.8 H Immature Gran % 0.3 Neutrophils % 87.0 Lymphocytes % 8.0 Monocytes % 3.9 Eosinophils % 0.2 Basophils % 0.6 Nucleated RBC % 0.0 Absolute Neutrophils 5.74 Absolute Lymphocytes 0.53 L Absolute Monocytes 0.26 Absolute Eosinophils 0.01 Absolute Basophils 0.04 Sodium Potassium Chloride Carbon Dioxide Anion Gap BUN Creatinine Est GFR (CKD-EPI 2020) Glucose Calcium Total Bilirubin AST ALT Alkaline Phosphatase Total Protein Albumin Urine Color Urine Clarity Urine pH Ur Specific [place] Urine Protein Urine Ketones Urine Blood Urine Nitrite Urine Bilirubin Urine Urobilinogen Ur Leukocyte Esterase Urine RBC Urine WBC Ur Epithelial Cells Urine Crystals Urine Bacteria Urine Mucus Ur Culture Indicated? Urine Glucose COVID-19 Source SARS-CoV-2 (PCR) Last Vital Signs Temp 36.8 C 11/13/22 18:02 Pulse 63 11/13/22 22:16 Resp 20 11/13/22 18:02 BP 136/51 L 11/13/22 22:16 Pulse Ox 98 11/13/22 22:30
[2022-11-14] VITALS (15 sets, daily range): BP systolic 121–184; BP diastolic 58–102; PULSE 63–83; RESP 12–26; TEMP 36.4–37.7; O2SAT 97–99; BMI 30.6
[2022-11-14] MEDS: Normal Saline 1,000 ML 100 ML IV ×3 (00:33→23:37)
[2022-11-14] MEDS: Albuterol HFA 8 GM 60 PUFF INH IH ×2 (00:44→04:10)
[2022-11-14] MEDS: Acetaminophen 325 MG TAB PO (04:31)
[2022-11-14 06:42] LABS: HCT 26.5 % (40.0-50.0); HGB 8.6 g/dL (13.5-17.5); MCH 29.6 pg (27.0-33.0); MCHC 32.5 % (32.0-36.0); MCV 91 fL (80-95); RBC 2.91 10^6/uL (4.36-5.78); RDW 12.8 % (11.8-14.1); RDW-SD 42.5 fL; WBC 4.97 10^3/uL (4.4-10.8)
[2022-11-14 06:51] LABS: Prothrombin Time 13.3 sec (9.3-11.0)
[2022-11-14 06:55] LABS: Platelet Count 58 10^3/uL (130-400)
[2022-11-14 06:59] LABS: ALT 14 U/L (16-63); AST 23 U/L (15-37); Albumin 2.3 g/dL (3.4-5.0); Alkaline Phosphatase 130 U/L (46-116); Anion Gap 9.1 mmol/L (3-11); BUN 22 mg/dL (7-18); CO2 21.9 mmol/L (21.0-32.0); CREATININE 1.4 mg/dL (0.70-1.30); Calcium 8.2 mg/dL (8.5-10.1); Chloride 109 mmol/L (98-107); Estimated GFR 50.81 (mL/min/1.73m2); Glucose 119 mg/dL (74-106); Sodium 140 mmol/L (136-145); Total Protein 6.9 g/dL (6.4-8.2)
[2022-11-14 07:07] LABS: INR 1.3 (0.9-1.1)
[2022-11-14] MEDS: Tiotropium Bromide-Respimat 10 PUFF INH 2 PUFF IH (07:48)
[2022-11-14] MEDS: Albuterol HFA 18 GM 200 PUFF INH IH ×3 (07:58→16:09)
[2022-11-14] MEDS: Propranolol 60 MG CAPCR PO (08:14)
[2022-11-14] MEDS: Losartan 50 MG TAB PO (08:14)
[2022-11-14] MEDS: Omeprazole 20 MG CAPCR PO (08:15)
--- NOTE | 2022-11-14 08:46 | PDOC.CMIN ---
- If Service Date Differs Date of service: 11/14/22 Time of Service: 08:46 Care Management Initial Assess REASON FOR HOSPITALIZATION:: Hematuria PAST MEDICAL HISTORY/PAST SURGICAL HISTORY:: All Active Problems . Bladder tumor (Acute). Acute blood loss anemia (Acute). Hematuria (Acute). Acute urinary retention (Acute). Mixed hearing loss, bilateral (Acute). Otosclerosis of both ears (Acute). DVT prophylaxis (Acute). Discharge planning issues (Acute). Bronchospasm (Acute). Community acquired pneumonia of both lungs (Acute). History of prostate cancer (Chronic). CKD (chronic kidney disease), stage III (Chronic). Thrombocytopenia (Chronic). Rales (Chronic). Listed as basilar rales in PCP chart. Restrictive lung disease (Chronic). 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 PFT impression from August 24, 2018 showed mild restrictive lung disease. Hypertension (Chronic). Medical History . Carpal tunnel syndrome. Cirrhosis of liver. Esophageal varices. Gross hematuria. Internal hemorrhoid. Other otosclerosis, bilateral. Prostate cancer. Right carpal tunnel syndrome. Surgical History . S/P endoscopic carpal tunnel release (09/09/18) PREVIOUS FUNCTIONAL STATUS/SOCIAL/FAMILY SUPPORTS:: Marleny lives alone in a mobile home in [facility]. He has 3 step daughters but does not see them often. Marleny continues to work for [employer]. 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 Marleny is independent at baseline and does not receive any community services. CURRENT FUNCTIONAL STATUS:: Marleny was siting up in bed when CM met with him. He was NPO in anticipation of possible surgery today. Marleny was pleasant in interaction and agreeable to conversation. 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 Marleny did end up having surgery today. He informed CM that he anticipates. being able to discharge home tomorrow if all goes well. ADVANCE DIRECTIVES:: none on file Has patient been provided with info about the portal/API?: Yes Did the patient sign up for the portal?: No CODE STATUS:: Full Code INSURANCE COVERAGE / FINANCIAL ISSUES:: [facility] medicare Replacement CURRENT HOME/COMMUNITY SERVICES/EQUIPMENT:: none PRIMARY CARE PHYSICIAN:: Edgar Marie POTENTIAL DISCHARGE NEEDS:: follow up with Urology and PCP PATIENT/FAMILY EDUCATION NEEDS:: Review of discharge instructions, limitations, activity, follow up plan, Ask Me Three TRANSPORTATION:: via private vehicle with freinds/family PLAN:: Marleny will likely return home, possibly with new home health services, when medically cleared. He will follow up with his community providers and transport with a friend or family member.
--- NOTE | 2022-11-14 10:32 | CHAPLAIN ---
Marleny was resting in bed when I visited. Introduced myself, explained my role and offered support. Marleny said what he really wanted was to eat. He said he hasn't eaten since yesterday and hasn't seen a doctor since last night. He's been in touch with family and family members will be visiting today.
--- NOTE | 2022-11-14 11:00 | UCONE_ITS ---
Date of service: 11/14/22 Time of Service: 11:00 Assessment and Plan Assessment and plan (1) Bladder tumor: Status: Acute Assessment and plan: We will plan to do cystocopy, clot evacuation and TURBT of his known bladder tumors. I would expect that he will need to remain in the hospital at least overnight for bladder irrigation. History of Present Illness History of Present Illness Chief Complaint: Bladder tumors Narrative: This is an 82 year old man who is known to us. He has a history of prostate cancer that was treated with external beam radiation. He developed gross painless hematuria that was evaluated with a renal ultrasound. We had recommended a cystoscopy and retrograde pyelogram to complete his workup. He elected to have the cystoscopy only (since it could be done in the office and would not require a special education bus driver after anesthesia). We identified 3 papillary tumors on the right side of his bladder. He was scheduled for elective TURBT. He developed gross hematuria about 5 days ago. He then presented to the ED last evening with increased hematuria and clot retention. Prior to presenting to the ED, he passed multiple clots. A hough catheter was placed and bladder irrigation was started. His serum hematocrit dropped from his baseline. He has not been symptomatic with anemia or required transfusion. Review of Systems Narrative: No fevers or chills Decreased hearing acuity. No diabetes or thyroid SOB with exertion. No hemoptysis No chest pain or palpitations No nausea, vomiting, hepatitis, ulcers, jaundice No seizures, strokes or peripheral neuropathy No bleeding disorders No gout PFSH All Active Problems Bladder tumor (Acute) Acute blood loss anemia (Acute) Hematuria (Acute) Acute urinary retention (Acute) Mixed hearing loss, 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) DVT prophylaxis (Acute) Discharge planning issues (Acute) Bronchospasm (Acute) Community acquired pneumonia of both lungs (Acute) History of prostate cancer (Chronic) CKD (chronic kidney disease), stage III (Chronic) Thrombocytopenia (Chronic) Rales (Chronic) Listed as basilar rales in PCP chart 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 Father Cardiovascular disease Brother No problems noted. 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 Do you feel safe at home: Yes Do you feel safe in your relationship?: Yes Exam Const General: cooperative and comfortable Resp Effort & Inspection: normal respiratory effort GI Palpation: soft and no masses Neuro General: patient alert, patient awake and patient oriented x3 Results Last Vital Signs Temp 36.7 C 11/14/22 07:16 Pulse 72 11/14/22 07:44 Resp 16 11/14/22 07:16 BP 155/67 H 11/14/22 07:16 Pulse Ox 98 11/14/22 07:16 Labs Result diagrams: 11/14/22 11:19 11/14/22 06:30 Labs: Laboratory Results - last 24 hr 11/13/22 11/13/22 11/13/22 20:50 21:08 21:55 WBC RBC Hgb Hct MCV MCH MCHC RDW Plt Count MPV Immature Gran % Neutrophils % Lymphocytes % Monocytes % Eosinophils % Basophils % Nucleated RBC % Absolute Neutrophils Absolute Lymphocytes Absolute Monocytes Absolute Eosinophils Absolute Basophils PT INR Sodium 137 Potassium 4.7 Chloride 106 Carbon Dioxide 22.2 Anion Gap 8.8 BUN 20 H Creatinine 1.4 H Est GFR (CKD-EPI 2020) 50.81 Glucose 155 H Calcium 8.6 Total Bilirubin 0.9 AST 32 ALT 20 Alkaline Phosphatase 166 H Total Protein 8.0 Albumin 2.7 L Urine Color Red Urine Clarity Cloudy Urine pH 7.0 Ur Specific [place] 1.025 Urine Protein >=300 H Urine Ketones Negative Urine Blood Moderate H Urine Nitrite Negative Urine Bilirubin Negative Urine Urobilinogen 0.2 Ur Leukocyte Esterase Negative Urine RBC >50 H Urine WBC Not Applicable Ur Epithelial Cells Not Applicable Urine Crystals Not Applicable Urine Bacteria Not Applicable Urine Mucus Not Applicable Ur Culture Indicated? Yes Urine Glucose Negative COVID-19 Source Nasal/Nares SARS-CoV-2 (PCR) Negative Patient ABO/Rh Antibody Screen 11/13/22 11/14/22 11/14/22 22:31 06:30 06:30 WBC 6.60 RBC 3.32 L Hgb 9.8 L Hct 30.0 L MCV 90 MCH 29.5 MCHC 32.7 RDW 12.8 Plt Count 70 L MPV 12.8 H Immature Gran % 0.3 Neutrophils % 87.0 Lymphocytes % 8.0 Monocytes % 3.9 Eosinophils % 0.2 Basophils % 0.6 Nucleated RBC % 0.0 Absolute Neutrophils 5.74 Absolute Lymphocytes 0.53 L Absolute Monocytes 0.26 Absolute Eosinophils 0.01 Absolute Basophils 0.04 PT 13.3 H INR 1.3 H Sodium Potassium Chloride Carbon Dioxide Anion Gap BUN Creatinine Est GFR (CKD-EPI 2020) Glucose Calcium Total Bilirubin AST ALT Alkaline Phosphatase Total Protein Albumin Urine Color Urine Clarity Urine pH Ur Specific [place] Urine Protein Urine Ketones Urine Blood Urine Nitrite Urine Bilirubin Urine Urobilinogen Ur Leukocyte Esterase Urine RBC Urine WBC Ur Epithelial Cells Urine Crystals Urine Bacteria Urine Mucus Ur Culture Indicated? Urine Glucose COVID-19 Source SARS-CoV-2 (PCR) Patient ABO/Rh O Positive Antibody Screen NEGATIVE 11/14/22 11/14/22 06:30 06:30 WBC 4.97 RBC 2.91 L Hgb 8.6 L Hct 26.5 L MCV 91 MCH 29.6 MCHC 32.5 RDW 12.8 Plt Count 58 L MPV Immature Gran % Neutrophils % Lymphocytes % Monocytes % Eosinophils % Basophils % Nucleated RBC % Absolute Neutrophils Absolute Lymphocytes Absolute Monocytes Absolute Eosinophils Absolute Basophils PT INR Sodium 140 Potassium 4.0 Chloride 109 H Carbon Dioxide 21.9 Anion Gap 9.1 BUN 22 H Creatinine 1.4 H Est GFR (CKD-EPI 2020) 50.81 Glucose 119 H Calcium 8.2 L Total Bilirubin 1.0 AST 23 ALT 14 L Alkaline Phosphatase 130 H Total Protein 6.9 Albumin 2.3 L Urine Color Urine Clarity Urine pH Ur Specific [place] Urine Protein Urine Ketones Urine Blood Urine Nitrite Urine Bilirubin Urine Urobilinogen Ur Leukocyte Esterase Urine RBC Urine WBC Ur Epithelial Cells Urine Crystals Urine Bacteria Urine Mucus Ur Culture Indicated? Urine Glucose COVID-19 Source SARS-CoV-2 (PCR) Patient ABO/Rh Antibody Screen
[2022-11-14 11:33] LABS: HCT 26.9 % (40.0-50.0); HGB 8.9 g/dL (13.5-17.5)
--- NOTE | 2022-11-14 12:03 | ANES.PREOP_ITS ---
General Info Date of Service Date Performed: 11/14/22 Height: 5 ft 4 in Weight: 81 kg Body Mass Index (BMI): 30.6 Surgical Procedure: Operation Date: 11/14/22 12:40 Proposed Procedure Side Surgeon p Cysto,Transurethral Resection Bladder Tumor Lonnie Saxena MD Meds Allergies and Home Medications Allergies Allergy/AdvReac Type Severity Reaction Status Date / Time ATUL Inhibitors AdvReac cough Unverified 11/13/22 18:09 Home Medication Medication Instructions Recorded aspirin 81 mg chewable tablet 81 mg PO DAILY 02/25/17 losartan 50 mg tablet 100 mg PO DAILY 02/25/17 magnesium oxide 250 mg PO DAILY AM 02/25/17 calcium carbonate 600 mg-vitamin 1 cap PO DAILY 09/03/18 D3 5 mcg (200 unit) capsule (Calcium 600 + D(3)) albuterol sulfate 90 mcg/actuation 2 puff inhalation Q4H ##0 02/13/19 aerosol inhaler (ProAir HFA) omeprazole 20 mg capsule,delayed 20 mg PO DAILY 05/31/21 release propranolol 60 mg capsule,24 60 mg PO DAILY 05/31/21 hr,extended release tiotropium bromide 2.5 2 puff inhalation DAILY 05/31/21 mcg/actuation mist for inhalation (Spiriva Respimat) Current Visit Medications: Current Medications Generic Name Dose Route Start Last Admin Trade Name Freq PRN Reason Stop Dose Admin Acetaminophen 0 mg 11/13/22 23:39 11/14/22 04:31 Acetaminophen 325 Mg Tab PO 650 mg Q4H PRN PRN Administration Al Hydrox/Mg Hydrox/Simethicone 30 ml 11/13/22 23:39 Mylanta Suspension 30 Ml Cup PO Q2H PRN PRN Albuterol Sulfate 0 puff 11/14/22 08:00 11/14/22 11:48 Albuterol Hfa 18 Gm 200 Puff Inh IH 2 puffs Q4H MAXIMUS Administration Device 1 each 11/13/22 23:45 Inhaler, Assist Device MC DIRECTED MAXIMUS Dimethicone/Zinc Oxide 0 gm 11/13/22 23:39 Mikki Protect Cream 142 Gm Tube TP PRN PRN Docusate Sodium 100 mg 11/13/22 23:39 Docusate Sodium 100 Mg Cap PO TID PRN PRN Sodium Chloride 500 mls @ 0 mls/hr 11/13/22 21:43 Saline 500ml Bag IV PRN PRN As Directed Sodium Chloride 1,000 mls @ 100 mls/hr 11/13/22 23:45 11/14/22 00:33 Saline 1000ml Bag IV 100 mls/hr INFUSION MAXIMUS Administration IV Miscellaneous Supplies 1 each 11/13/22 21:45 Iv Access IV DIRECTED MAXIMUS Losartan Potassium 50 mg 11/14/22 08:30 11/14/22 08:14 Losartan 50 Mg Tab PO 50 mg DAILY MAXIMUS Administration Magnesium Hydroxide 30 ml 11/13/22 23:39 Milk Of Magnesia 30 Ml Cup PO DAILY PRN PRN Omeprazole 20 mg 11/14/22 07:30 11/14/22 08:15 Omeprazole 20 Mg Capcr PO 20 mg DAILY@0730 MAXIMUS Administration Polyethylene Glycol 17 gm 11/13/22 23:39 Polyethylene Glycol 3350 17 Gm Packet PO DAILY PRN PRN Constipation Propranolol HCl 60 mg 11/14/22 08:30 11/14/22 08:14 Propranolol 60 Mg Capcr PO 60 mg DAILY MAXIMUS Administration Sodium Chloride 0 ml 11/13/22 21:43 Normal Saline Flush 10 Ml Syr IVP PRN PRN Tiotropium [place] 2 puff 11/14/22 08:30 11/14/22 07:48 Tiotropium [place]-Respimat 10 Puff Inh IH 2 inh DAILY MAXIMUS Administration PFSH Active Problems Active Problems: Problem Status Onset Code Bladder tumor D49.4 Acute blood loss anemia D62 Hematuria R31.9 Acute urinary retention R33.8 Mixed hearing loss, 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 DVT prophylaxis Discharge planning issues Z02.9 Bronchospasm J98.01 Community acquired pneumonia of both lungs J18.9 S/P radiation therapy Z92.3 History of prostate cancer Z85.46 CKD (chronic kidney disease), stage III N18.3 Thrombocytopenia D69.6 Rales R09.89 Restrictive lung disease J98.4 Hypertension I10 Medical History Medical History Carpal tunnel syndrome Cirrhosis of liver Esophageal varices Gross hematuria Internal hemorrhoid Other otosclerosis, bilateral Prostate cancer Right carpal tunnel syndrome Surgical History Surgical History S/P endoscopic carpal tunnel release (09/09/18) Tobacco Smoking/Tobacco Use Status: Never Alcohol Alcohol Intake: former Year quit: 1994 Substance Use Substance use: Never Substance use type: does not use Vital Signs and Lab Results Vital Signs Most Recent Vital Signs in EMR: Most Recent Vital Signs Temp Pulse Resp BP Pulse Ox 36.8 C 64 16 157/71 H 97 11/14/22 11:07 11/14/22 11:07 11/14/22 11:07 11/14/22 11:07 11/14/22 11:07 Lab Results Result Diagrams: 11/14/22 11:19 11/14/22 06:30 Blood Type / Crossmatch: Patient ABO/Rh O Positive 11/14/22 Antibody Screen NEGATIVE 11/14/22 Complete Blood Count: White Blood Count 4.97 10^3/uL (4.4-10.8) 11/14/22 06:30 Red Blood Count 2.91 10^6/uL (4.36-5.78) L 11/14/22 06:30 Hemoglobin 8.9 g/dL (13.5-17.5) L 11/14/22 11:19 Hematocrit 26.9 % (40.0-50.0) L 11/14/22 11:19 Platelet Count 58 10^3/uL (130-400) L 11/14/22 06:30 Complete Metabolic Panel: Sodium 140 mmol/L (136-145) 11/14/22 06:30 Potassium 4.0 mmol/L (3.5-5.1) 11/14/22 06:30 Chloride 109 mmol/L (98-107) H 11/14/22 06:30 Carbon Dioxide 21.9 mmol/L (21.0-32.0) 11/14/22 06:30 BUN 22 mg/dL (7-18) H 11/14/22 06:30 Creatinine 1.4 mg/dL (0.70-1.30) H 11/14/22 06:30 Est GFR (CKD-EPI 2020) 50.81 (mL/min/1.73m2) 11/14/22 06:30 Calcium 8.2 mg/dL (8.5-10.1) L 11/14/22 06:30 Albumin 2.3 g/dL (3.4-5.0) L 11/14/22 06:30 Glucose 119 mg/dL (74-106) H 11/14/22 06:30 Liver Function Panel: Alanine Aminotransferase (ALT/SGPT) 14 U/L (16-63) L 11/14/22 0 6:30 Aspartate Amino Transf (AST/SGOT) 23 U/L (15-37) 11/14/22 06:30 Coagulation Panel: INR International Normalized Ratio 1.3 (0.9-1.1) H 11/14/22 06 :30 Prothrombin Time 13.3 sec (9.3-11.0) H 11/14/22 06:30 Cardiac Panel: No Data to Display Arterial Blood Gas: No Data to Display Venous Blood Gas: No Data to Display Pancreas Panel: No Data to Display Thyroid Panel: No Data to Display Infectious Disease: Coronavirus (COVID-19)(PCR) Negative (Negative) 11/13/22 21:55 Coronavirus 2019 Source Nasal/Nares 11/13/22 21:55 Blood Cultures: No Data to Display Toxicology Panel: No Data to Display Imaging and Studies Imaging and Studies Study information below may be from another EMR and interpreted by another provider. Please see original notes in EMR for more complete details. EKG Summary: 12/08: sinus rhythm Pulmonary Function Summary: 09/03: mild restrictive dz. Anesthesia Assessment and Plan Anesthesia History Personal History: No History of Anesthesia Complications Family History: No Family History of Anesthesia Complications Exercise Tolerance Exercise Tolerance: Metabolic Equivalents>4 Cardiac & Pulmonary Exam Cardiac Exam: Normal S1/S2 Heart Sounds Pulmonary Exam: Clear Bilateral Breath Sounds Implantable Cardiac Device Does patient have a Pacemaker or an ICD?: No Airway Exam Known Difficult Airway: No Mallampati Class: 2 Mouth Opening: Normal (> 3cm) Thyromental Distance: Greater than 3 cm Neck Range of Motion: Limited ROM Neck Circumference: Thick Teeth Condition: Removable Dentures/Plates Upper and Edentulous ASA Classification ASA Score: ASA 3 Emergency Case?: Yes NPO Status NPO Status: NPO Clears >2 hours, Solids >8 hours Anesthesia Plan Resuscitation Status: Full Code Anesthesia Technique: General Anesthesia Airway Planned: Natural Airway Monitors Used: Standard Monitors Preoperative Comments:: 82 yo male with bladder tumor now with hematuria. currently inpt 8.9/26 h/h, plt 58, INR 1.3 Sig PMHx: CKD (GFR 50), HTN (losartan, propranolol), restrictive lung dz (last PFTs 2018 mild), prostate CA, cirrhosis/portal htn/varcies with banding, never smoker, former EtOH, RAD (albuterol), GERD (omeprazole), thrombocytopenia. Previous Anes: - EGD/[place] at [facility] [place] 2 with prop, no airway without issues.
[2022-11-14] MEDS: Lidocaine 2% Jelly 6 ML SYR (14:04)
--- NOTE | 2022-11-14 14:10 | BLADDER_PTH ---
PATIENT: Marleny Martin LOC: [id number] AGE/SX: 82/M ROOM: 208 RE11/13/[address]: Kings Segundo : 1940 BED: A DIS: 11/16/2022 SPEC #: [id number] RECD: 11/14/22 15:53 STATUS: ROMIE REQ #: [id number] ARAMIS: 11/14/22 14:[address]: Kings Segundo DEPT: Surgical Specimen RECD BY: Mary Dunn ENTERED: 11/14/22 15:55 SP TYPE: Bladder OTHR DR: MD Cynthia Cote John Tissues: 1 - BLADDER BIOPSY Procedures: GROSS AND MICRO LEVEL 4 Comments: [id number]
--- NOTE | 2022-11-14 14:17 | ROE_ITS ---
Date of service: 11/14/22 Time of Service: 14:17 Operative Note Operative Note DATE OF PROCEDURE: 11/14/22 PRE-OP DIAGNOSIS: Bladder tumors POST-OP DIAGNOSIS: same clot retention PROCEDURE: Cystoscopy, clot evacuation, transurethral resection of small bladder tumors (less than 2 cm) SURGEON: Lonnie Saxena ANESTHESIA TYPE: General:No Airway Refer to Anesthesia Record ESTIMATED BLOOD LOSS: 25 PATHOLOGY: other (Bladder tumors) COMPLICATIONS: None Patient was transported to: PACU Patient's condition: stable Implants: 20 Lithuanian irrigating catheter with 30 cc of sterile water in balloon Indications: This is an 82-year-old gentleman who has a history of prostate cancer. He was treated with external beam radiation therapy. He has had several months history of intermittent gross painless hematuria. He was evaluated with a renal ultrasound and no solid renal masses were identified. We had recommended a cystoscopy and bilateral retrograde pyelogram, but the patient elected a local cystoscopy in the office instead. We did the cystoscopy last week and identified 3 small papillary tumors on the right side of his bladder. Plans were made for an elective transurethral resection of the bladder tumors. In the interim, he developed clot retention and required a presentation to the emergency department. A Gardner catheter was placed and continuous bladder irrigation was maintained. He presents now for clot evacuation and TUR bladder tumors Findings: Clots within the bladder 3 papillary lesions on the right side of the bladder Procedure Description: The patient was given a dose of preoperative IV Ancef. He was brought to the operating room on 11/14/2022. After successful induction of general anesthesia, he was placed in the dorsal lithotomy position. His indwelling urethral catheter was removed. His genitalia was prepped and draped. 2% Xylocaine jelly was instilled into the urethra to act as a local anesthetic. A 24 Lithuanian resectoscope sheath was then passed through the urethra into the bladder. The urethra and bladder were inspected with the 30 degree lens. The pendulous, bulbar and membranous urethra appeared normal with no strictures. The prostatic urethra had a leadpipe consistency. The bladder neck was entered and numerous clots were encountered. The clots were irrigated free using a Elliot syringe. We were then able to visualize the previously identified 3 papillary lesions on the right side of the bladder. We used an Wonderflow resectoscope and bipolar cautery to resect each of these areas. Each resection site was then cauterized using the bipolar coagulation current. The resected tissue was evacuated and sent to pathology for permanent section. At the completion of the procedure, there was no active bleeding. The bladder was filled with irrigation and the resectoscope was removed. A 20 Lithuanian hematuria catheter was passed through the urethra into the bladder. The catheter balloon was inflated with 30 cc of sterile water. Continuous bladder irrigation with saline was then begun. The patient tolerated the procedure with no complications.
--- NOTE | 2022-11-14 15:10 | W.PM.PROGNOT ---
Date of Service Date of service: 11/14/22 Time of Service: 15:10 Assessment and Plan Assessment and plan (1) Hematuria: Status: Acute Assessment and plan: Gross hematuria and clotting - Taken to the OR by Dr. Saxena - he plans to do cystocopy, clot evacuation and TURBT of his known bladder tumors and he will stay over night.? (2) Acute urinary retention: Status: Acute Assessment and plan: Secondary to blood clot with bladder wall bleeding from recently diagnosed tumors according to patient; 3 way hough catheter in place with continuous irrigation ongoing, seen and taken to OR by Dr Saxena (3) Acute blood loss anemia: Status: Acute Assessment and plan: Patient's hemoglobin did drop down below 10 g/dL when he usually is a this level and this will be trended with patient typed and screened. Transfuse if needed. The patient does appear to have CKD with chronic anemia and also thrombocytopenia which appears stable but may increase chances of bleeding. PT/INR will be checked. (4) Bladder tumor: Status: Acute Assessment and plan: Followed by urology; seen by Dr Saxena (5) Thrombocytopenia: Status: Chronic Assessment and plan: This appears chronic and stable but may contribute to blood loss. Most likely this is not the cause of bleeding presently with newfound tumors. Check H/H platelets tomorrow; hold heparin (6) CKD (chronic kidney disease), stage III: Status: Chronic Assessment and plan: BUN 22 creat 1.4 - at baseline Monitor (7) History of prostate cancer: Status: Chronic (8) DVT prophylaxis: Status: Acute Assessment and plan: SCD - Heparin contraindicated - Platelets ~ 50 (9) Discharge planning issues: Status: Acute Assessment and plan: Plan to go home tomorrow after seen by Dr Saxena discussed with Dr Rodgers Subjective Subjective Patient reports: no new complaints and feels better Interval history since last seen: Seen by urology and taken to the OR - see Dr Saxena's notes Exam Const General: cooperative HENMT Mouth: moist mucous membranes Eyes Conjunctivae: normal conjunctivae Sclera: normal sclerae Neck Neck: trachea midline and supple Resp Auscultation: clear to auscultation bilaterally, no rales, no rhonchi and no wheezes Cardio Rate: regular rate and not tachycardic Rhythm: regular rhythm GI Palpation: soft, not firm, no guarding, no masses, not rigid and tender suprapubicly General: other (Three way hough catheter in place) Scrotum: scrotum normal Testes: normal Skin General skin exam: no rashes or lesions noted Neuro General: patient alert, patient awake and tone normal Extrem General: no edema Psych Appearance: grossly normal Mental Status: mental status grossly normal Objective Last Vital Signs Temp 36.8 C 11/14/22 14:55 Pulse 64 11/14/22 14:55 Resp 18 11/14/22 14:55 BP 161/75 H 11/14/22 14:55 Pulse Ox 97 11/14/22 14:55 Laboratory Results - last 24 hr 11/13/22 11/13/22 11/13/22 20:50 21:08 21:55 WBC RBC Hgb Hct MCV MCH MCHC RDW Plt Count MPV Immature Gran % Neutrophils % Lymphocytes % Monocytes % Eosinophils % Basophils % Nucleated RBC % Absolute Neutrophils Absolute Lymphocytes Absolute Monocytes Absolute Eosinophils Absolute Basophils PT INR Sodium 137 Potassium 4.7 Chloride 106 Carbon Dioxide 22.2 Anion Gap 8.8 BUN 20 H Creatinine 1.4 H Est GFR (CKD-EPI 2020) 50.81 Glucose 155 H Calcium 8.6 Total Bilirubin 0.9 AST 32 ALT 20 Alkaline Phosphatase 166 H Total Protein 8.0 Albumin 2.7 L Urine Color Red Urine Clarity Cloudy Urine pH 7.0 Ur Specific Mountain 1.025 Urine Protein >=300 H Urine Ketones Negative Urine Blood Moderate H Urine Nitrite Negative Urine Bilirubin Negative Urine Urobilinogen 0.2 Ur Leukocyte Esterase Negative Urine RBC >50 H Urine WBC Not Applicable Ur Epithelial Cells Not Applicable Urine Crystals Not Applicable Urine Bacteria Not Applicable Urine Mucus Not Applicable Ur Culture Indicated? Yes Urine Glucose Negative COVID-19 Source Nasal/Nares SARS-CoV-2 (PCR) Negative Patient ABO/Rh Antibody Screen 11/13/22 11/14/22 11/14/22 22:31 06:30 06:30 WBC 6.60 RBC 3.32 L Hgb 9.8 L Hct 30.0 L MCV 90 MCH 29.5 MCHC 32.7 RDW 12.8 Plt Count 70 L MPV 12.8 H Immature Gran % 0.3 Neutrophils % 87.0 Lymphocytes % 8.0 Monocytes % 3.9 Eosinophils % 0.2 Basophils % 0.6 Nucleated RBC % 0.0 Absolute Neutrophils 5.74 Absolute Lymphocytes 0.53 L Absolute Monocytes 0.26 Absolute Eosinophils 0.01 Absolute Basophils 0.04 PT 13.3 H INR 1.3 H Sodium Potassium Chloride Carbon Dioxide Anion Gap BUN Creatinine Est GFR (CKD-EPI 2020) Glucose Calcium Total Bilirubin AST ALT Alkaline Phosphatase Total Protein Albumin Urine Color Urine Clarity Urine pH Ur Specific Mountain Urine Protein Urine Ketones Urine Blood Urine Nitrite Urine Bilirubin Urine Urobilinogen Ur Leukocyte Esterase Urine RBC Urine WBC Ur Epithelial Cells Urine Crystals Urine Bacteria Urine Mucus Ur Culture Indicated? Urine Glucose COVID-19 Source SARS-CoV-2 (PCR) Patient ABO/Rh O Positive Antibody Screen NEGATIVE 11/14/22 11/14/22 11/14/22 06:30 06:30 11:19 WBC 4.97 RBC 2.91 L Hgb 8.6 L 8.9 L Hct 26.5 L 26.9 L MCV 91 MCH 29.6 MCHC 32.5 RDW 12.8 Plt Count 58 L MPV Immature Gran % Neutrophils % Lymphocytes % Monocytes % Eosinophils % Basophils % Nucleated RBC % Absolute Neutrophils Absolute Lymphocytes Absolute Monocytes Absolute Eosinophils Absolute Basophils PT INR Sodium 140 Potassium 4.0 Chloride 109 H Carbon Dioxide 21.9 Anion Gap 9.1 BUN 22 H Creatinine 1.4 H Est GFR (CKD-EPI 2020) 50.81 Glucose 119 H Calcium 8.2 L Total Bilirubin 1.0 AST 23 ALT 14 L Alkaline Phosphatase 130 H Total Protein 6.9 Albumin 2.3 L Urine Color Urine Clarity Urine pH Ur Specific Mountain Urine Protein Urine Ketones Urine Blood Urine Nitrite Urine Bilirubin Urine Urobilinogen Ur Leukocyte Esterase Urine RBC Urine WBC Ur Epithelial Cells Urine Crystals Urine Bacteria Urine Mucus Ur Culture Indicated? Urine Glucose COVID-19 Source SARS-CoV-2 (PCR) Patient ABO/Rh Antibody Screen
--- NOTE | 2022-11-14 19:01 | W.ANESPOSTOP ---
Postoperative Evaluation Date, Time and Location Date Performed: 11/14/22 Time Performed: 19:01 Patient Location: Med/Surg Vital Signs Most Recent Imported Vital Signs: Most Recent Vital Signs Temp Pulse Resp BP Pulse Ox 36.7 C 69 16 161/73 H 99 11/14/22 15:36 11/14/22 15:36 11/14/22 15:36 11/14/22 15:36 11/14/22 15:36 Pain Score Most Recent Pain Score: Most Recent Pain Score Pain Level [Left Lower Leg] 4 11/14/22 04:54 Pain Level 9 11/14/22 15:36 Assessment Mental Status: Awake (Alert & Oriented to Patient Baseline) Airway and Respiratory Function: Patent airway with normal (patient baseline) respiratory exam Cardiovascular Function: Hemodynamically Stable Hydration Status: Adequately Hydrated Nausea & Vomiting: No Nausea or Vomiting Pain: Pt. Denies Any Pain Peripheral Nerve Block: Patient did not receive a nerve block
[2022-11-15] MEDS: Acetaminophen 325 MG TAB PO (02:24)
[2022-11-15 02:25] VITALS: BP 148/72; PULSE 76; RESP 20; TEMP 38; O2SAT 99
--- NOTE | 2022-11-15 04:42 | NUR.NOTE ---
Nursing Note: went into patient's room to recheck tympanic temp s/p Tylenol given for temp over 38. Alert and Oriented x 4 pt yelled out the word Noand swung his right arm at me and hit my hand. Left room and notified the charge nurse immediately.
[2022-11-15 06:55] LABS: Abs Immature Grans 0.01 10^3/uL (0.0-0.06); Absolute Basophil Count 0.02 10^3/uL (0.0-0.2); Absolute Eosinophil Count 0.09 10^3/uL (0.0-0.7); Absolute Lymphocyte Count 0.72 10^3/uL (1.2-3.4); Absolute Monocyte Count 0.37 10^3/uL (0.1-0.8); Absolute Neutrophil Count 2.57 10^3/uL (1.2-6.7); Basophils % 0.5; Eosinophils % 2.4; HCT 23.5 % (40.0-50.0); HGB 7.6 g/dL (13.5-17.5); Immature Grans % 0.3; MCH 29.5 pg (27.0-33.0); MCHC 32.3 % (32.0-36.0); MCV 91 fL (80-95); MPV 13.3 fL (8.0-11.0); Monocytes % 9.8; RBC 2.58 10^6/uL (4.36-5.78); RDW 12.8 % (11.8-14.1); RDW-SD 42.6 fL; WBC 3.78 10^3/uL (4.4-10.8)
[2022-11-15 07:11] VITALS: BP 129/42; PULSE 72; RESP 16; TEMP 37; O2SAT 92
[2022-11-15 07:13] LABS: Anion Gap 8.7 mmol/L (3-11); BUN 22 mg/dL (7-18); CO2 21.3 mmol/L (21.0-32.0); CREATININE 1.4 mg/dL (0.70-1.30); Calcium 7.8 mg/dL (8.5-10.1); Chloride 110 mmol/L (98-107); Estimated GFR 50.81 (mL/min/1.73m2); Glucose 107 mg/dL (74-106); Magnesium 1.7 mg/dL (1.8-2.4); Potassium 3.8 mmol/L (3.5-5.1); Sodium 140 mmol/L (136-145)
[2022-11-15 07:14] LABS: Platelet Count 41 10^3/uL (130-400)
[2022-11-15 07:15] LABS: RBC Morphology Normal
--- NOTE | 2022-11-15 07:38 | W.PM.PROGNOT ---
Date of Service Date of service: 11/15/22 Time of Service: 07:38 Assessment and Plan Assessment and plan (1) Bladder tumor: Status: Acute Assessment and plan: Now that his bladder tumors have been resected, I would not expect much additional acute blood loss. Based on his labs and clinical picture, we may need to replace some of the blood loss he has had so far He was given a single dose of Ancef 2 g IV prior to his cystoscopy, but he is now running a fever. I have added oral Cipro to his regimen thinking that the fever is most likely related to his urologic manipulation. He did have a urine culture sent from the emergency department on his initial presentation, but there are no results available from that culture so far With the bladder outflow clear, I think it is safe to discontinue his bladder irrigation. If the urine output itself remains clear, we can remove his Gardner catheter either later today or tomorrow morning. Subjective Subjective Interval history since last seen: He is remained stable with no clot retention overnight He is running a bit of a fever Exam Narrative Exam Narrative: He appears comfortable He does not appear septic or toxic His vital signs are documented elsewhere His bladder irrigation is clear. His abdomen is soft with no guarding or rebound tenderness He is awake and alert Objective Last Vital Signs Temp 37 C 11/15/22 07:11 Pulse 72 11/15/22 07:11 Resp 16 11/15/22 07:11 BP 129/42 L 11/15/22 07:11 Pulse Ox 92 11/15/22 07:11 Laboratory Results - last 24 hr 11/14/22 11/15/22 11/15/22 11:19 06:14 06:14 WBC 3.78 L RBC 2.58 L Hgb 8.9 L 7.6 L Hct 26.9 L 23.5 L MCV 91 MCH 29.5 MCHC 32.3 RDW 12.8 Plt Count 41 L MPV 13.3 H Immature Gran % 0.3 Neutrophils % 68.0 Lymphocytes % 19.0 Monocytes % 9.8 Eosinophils % 2.4 Basophils % 0.5 Nucleated RBC % 0.0 Absolute Neutrophils 2.57 Absolute Lymphocytes 0.72 L Absolute Monocytes 0.37 Absolute Eosinophils 0.09 Absolute Basophils 0.02 RBC Morphology Normal Sodium 140 Potassium 3.8 Chloride 110 H Carbon Dioxide 21.3 Anion Gap 8.7 BUN 22 H Creatinine 1.4 H Est GFR (CKD-EPI 2020) 50.81 Glucose 107 H Calcium 7.8 L Magnesium 1.7 L
[2022-11-15] MEDS: Tiotropium Bromide-Respimat 10 PUFF INH 2 PUFF IH (07:45)
--- NOTE | 2022-11-15 07:55 | PDOC.CMPRO ---
- If Service Date Differs Date of service: 11/15/22 Time of Service: 07:55 Care Management Progress Note S/O: Marleny remains inpatient, per MD H&H closely monitored as Marleny has refused blood transfusion-he continues to be followed by urology. No change to overall plan, CM continues to follow. A: 82 year old male admitted to [facility] 11/13/22 for Gross Hematuria, Bladder tumor, urinary retention P: Marleny will likely return home, possibly with new home health services, when medically cleared. He will follow up with his community providers and transport with a friend or family member.
[2022-11-15] MEDS: Losartan 50 MG TAB PO (08:13)
[2022-11-15] MEDS: Ciprofloxacin 500 MG TAB PO ×2 (08:13→20:01)
[2022-11-15] MEDS: Propranolol 60 MG CAPCR PO (08:13)
[2022-11-15] MEDS: Omeprazole 20 MG CAPCR PO (08:13)
--- NOTE | 2022-11-15 10:46 | PGE_ITS ---
Date of Service Date of service: 11/15/22 Time of Service: 10:46 Assessment and Plan Assessment and plan (1) Hematuria: Status: Acute Assessment and plan: Gross hematuria and clotting - Taken to the OR by Dr. Saxena, did well, H/H is low, but no longer dropping, patient does refuse blood products at this time; he has no tachycardia or hypotension, denies dizziness, will repeat this alexx. (2) Acute urinary retention: Status: Acute Assessment and plan: Secondary to blood clot with bladder wall bleeding from recently diagnosed tumors according to patient; 3 way hough catheter in place with continuous irrigation ongoing, seen and taken to OR by Dr Saxena - OR went well, no complications - irrigation stopped at this time, draining without issue; pink tinged, see through urine, no clots. denies pain, continue to monitor H/H, assess for retention. (3) Acute blood loss anemia: Status: Acute Assessment and plan: Patient's hemoglobin did drop down below 10 g/dL when he usually is a this level and this will be trended with patient typed and screened. Transfuse if needed. The patient does appear to have CKD with chronic anemia and also thrombocytopen ia which appears stable but may increase chances of bleeding. PT/INR will be checked. (4) Bladder tumor: Status: Acute Assessment and plan: Followed by urology; seen by Dr Saxena (5) Thrombocytopenia: Status: Chronic Assessment and plan: This appears chronic and stable but may contribute to blood loss. Most likely this is not the cause of bleeding presently with newfound tumors. Check H/H platelets tomorrow; hold heparin PLT 41 today IVF stopped (6) CKD (chronic kidney disease), stage III: Status: Chronic Assessment and plan: BUN 22 creat 1.4 - at baseline Monitor (7) History of prostate cancer: Status: Chronic (8) DVT prophylaxis: Status: Acute Assessment and plan: SCD - Heparin contraindicated - Platelets 41 today (9) Discharge planning issues: Status: Acute Assessment and plan: Plan to go home tomorrow after seen by Dr Saxena discussed with Dr Rodgers (10) Fever: Status: Acute Subjective Subjective Patient reports: no new complaints, feels better, tolerating a regular diet and afebrile; denies diarrhea or vomiting Interval history since last seen: Seen by Dr Saxena; bladder irrigation discontinued. IVF stopped. Awake and alert. Declines blood at this time, will check H/H @ 1300 h today and reassess. He is not dizzy, no lightheadedness, not tachycardic, no hypotension, and color looks good with H/H 7.6/23 Repeated @ 1300h 7.8/24.3 - will recheck this alexx. Exam Narrative Exam Narrative: Urine in the collection bag is pale, see through, pink, no clots - adequate output. Irrigation was discontinued several hours ago. Const General: cooperative HENMT Mouth: moist mucous membranes Eyes Conjunctivae: normal conjunctivae Sclera: normal sclerae Neck Neck: trachea midline and supple Resp Auscultation: clear to auscultation bilaterally, no rales, no rhonchi and no wheezes Cardio Rate: regular rate and not tachycardic Rhythm: regular rhythm GI Palpation: soft, not firm, no guarding, no masses, not rigid and tender suprapubicly General: other (Three way hough catheter in place) Scrotum: scrotum normal Testes: normal Skin General skin exam: no rashes or lesions noted Neuro General: patient alert, patient awake and tone normal Extrem General: no edema Psych Appearance: grossly normal Mental Status: mental status grossly normal Objective Last Vital Signs Temp 37 C 11/15/22 07:11 Pulse 72 11/15/22 07:11 Resp 16 11/15/22 07:11 BP 129/42 L 11/15/22 07:11 Pulse Ox 92 11/15/22 07:11 Laboratory Results - last 24 hr 11/14/22 11/15/22 11/15/22 11:19 06:14 06:14 WBC 3.78 L RBC 2.58 L Hgb 8.9 L 7.6 L Hct 26.9 L 23.5 L MCV 91 MCH 29.5 MCHC 32.3 RDW 12.8 Plt Count 41 L MPV 13.3 H Immature Gran % 0.3 Neutrophils % 68.0 Lymphocytes % 19.0 Monocytes % 9.8 Eosinophils % 2.4 Basophils % 0.5 Nucleated RBC % 0.0 Absolute Neutrophils 2.57 Absolute Lymphocytes 0.72 L Absolute Monocytes 0.37 Absolute Eosinophils 0.09 Absolute Basophils 0.02 RBC Morphology Normal Sodium 140 Potassium 3.8 Chloride 110 H Carbon Dioxide 21.3 Anion Gap 8.7 BUN 22 H Creatinine 1.4 H Est GFR (CKD-EPI 2020) 50.81 Glucose 107 H Calcium 7.8 L Magnesium 1.7 L
[2022-11-15] MEDS: MAGNESIUM SULFATE 2 GM/50 ML BAG IVPB (10:59)
[2022-11-15] MEDS: Normal Saline Flush 10 ML SYR IVP (11:00)
[2022-11-15 11:13] VITALS: BP 146/78; PULSE 72; RESP 20; TEMP 37.2; O2SAT 99
[2022-11-15 13:09] LABS: HCT 24.3 % (40.0-50.0); HGB 7.8 g/dL (13.5-17.5)
[2022-11-15 15:29] VITALS: BP 133/68; PULSE 74; RESP 20; TEMP 37.3; O2SAT 99
[2022-11-15 19:35] VITALS: BP 157/66; PULSE 72; RESP 20; TEMP 37.4; O2SAT 97
[2022-11-16 03:06] VITALS: BP 144/74; PULSE 69; RESP 18; TEMP 36.9; O2SAT 97
[2022-11-16 07:17] LABS: Abs Immature Grans 0.03 10^3/uL (0.0-0.06); Absolute Basophil Count 0.01 10^3/uL (0.0-0.2); Absolute Lymphocyte Count 0.64 10^3/uL (1.2-3.4); Absolute Monocyte Count 0.32 10^3/uL (0.1-0.8); Absolute Neutrophil Count 2.37 10^3/uL (1.2-6.7); Basophils % 0.3; Eosinophils % 5.6; HCT 24.4 % (40.0-50.0); HGB 8.2 g/dL (13.5-17.5); Immature Grans % 0.8; Lymphocytes % 17.9; MCHC 33.6 % (32.0-36.0); MCV 89 fL (80-95); MPV 12.5 fL (8.0-11.0); Neutrophils % 66.4; RBC 2.73 10^6/uL (4.36-5.78); RDW 12.6 % (11.8-14.1); RDW-SD 41.3 fL; WBC 3.57 10^3/uL (4.4-10.8)
--- NOTE | 2022-11-16 07:28 | W.PM.PROGNOT ---
Date of Service Date of service: 11/16/22 Time of Service: 07:28 Assessment and Plan Assessment and plan (1) Bladder tumor: Status: Acute Assessment and plan: We will remove his hough If his labs are stable, I would have no objection to him being discharged today. I would suggest a total of 5 days of Cipro and a followup appt with me in @ 1 week to discuss his pathology results. We already took care of his postop work excuse (return 11/25/2022 with no restrictions) yesterday from the office EMR. Subjective Subjective Interval history since last seen: He has remained comfortable with no episodes of clot retention. He gets short of breath with exertion but denies any lightheadedness. Exam Narrative Exam Narrative: He appears comfortable He remained afebrile overnight His urine is clear He is awake and alert His morning labs are pending Objective Last Vital Signs Temp 36.9 C 11/16/22 03:06 Pulse 69 11/16/22 03:06 Resp 18 11/16/22 03:06 BP 144/74 H 11/16/22 03:06 Pulse Ox 97 11/16/22 03:06 Laboratory Results - last 24 hr 11/15/22 13:02 Hgb 7.8 L Hct 24.3 L
[2022-11-16 07:29] LABS: Anion Gap 7.3 mmol/L (3-11); BUN 16 mg/dL (7-18); CO2 22.7 mmol/L (21.0-32.0); CREATININE 1.3 mg/dL (0.70-1.30); Chloride 110 mmol/L (98-107); Estimated GFR 55.53 (mL/min/1.73m2); Glucose 108 mg/dL (74-106); Magnesium 1.9 mg/dL (1.8-2.4); Potassium 3.8 mmol/L (3.5-5.1); Sodium 140 mmol/L (136-145)
[2022-11-16 07:32] VITALS: BP 161/77; PULSE 67; RESP 17; TEMP 37; O2SAT 97
--- NOTE | 2022-11-16 07:35 | W.PM.DSUDISC ---
Date of service: 11/16/22 Time of Service: 07:36 Discharge Plan Disposition Patient Disposition: Home Condition: Improving Discharge Details Reason For Visit: Gross Hematuria,Bladder Tumor,Urinary Retention Admit Date/Time: 11/13/22 21:43 Admit Provider: Kings Segundo Attending Provider: Kings Segundo Primary Care Provider: Edgar Marie [facility] Course Hospital Course: The patient was admitted through the ED. An irriagating catheter was placed and CBi was started. Serial Hgb was monitored. His Hgb dropped but the patient remained asymptomatic without hypotension or tachycardia, so no transfusion was given. He was taken to the OR on 11/14/2022 where he underwent evacuation of his remaining blood clots and TURBT of his known bladder tumors. Postoperatively, we ran CBI for an additional 24 hours. We stopped the CBI on POD #1 and removed the catheter on POD #2. The patient developed a fever on the evening of his surgery. He had been prophylaxed with IV Ancef preoperatively. His admitting urine culture was not growing any significant uropathogens. He was started on oral Cipro postoperatively and remained aafebrile subsequently. Home Meds and New Rx's Prescriptions: New ciprofloxacin HCl 500 mg Tablet 500 mg PO BID Qty: 0 0RF No Action losartan 50 MG tablet 100 mg PO DAILY aspirin 81 MG tablet,chewable 81 mg PO DAILY magnesium oxide 250 MG tablet 250 mg PO DAILY AM omeprazole 20 mg capsule,delayed release(DR/EC) 20 mg PO DAILY propranolol 60 mg capsule,extended release 24 hr 60 mg PO DAILY Spiriva Respimat 2.5 mcg/actuation mist 2 puff inhalation DAILY Calcium 600 + D(3) 600 mg calcium- 200 unit Capsule 1 cap PO DAILY albuterol sulfate [ProAir HFA] 8.5 GM HFA aerosol inhaler 2 puff Inhalation Q4H Qty: 0 0RF Discharge Instructions Additional Instructions: No lifting over 10 pounds or straining for 1 week May return to work 11/25/2022 (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
--- NOTE | 2022-11-16 07:47 | W.PM.DS.N ---
Date of service: 11/16/22 Time of Service: 07:47 DS: Diagnosis Discharge Diagnosis (1) Bladder tumor: Status: Acute Discharge Plan Disposition Patient Disposition: Home Condition: Improving Discharge Details Reason For Visit: Gross Hematuria,Bladder Tumor,Urinary Retention Admit Date/Time: 11/13/22 21:43 Admit Provider: Kings Segundo Attending Provider: Kings Segundo Primary Care Provider: Edgar [facility] Hospital Course: The patient was admitted through the ED. An irriagating catheter was placed and CBi was started. Serial Hgb was monitored. His Hgb dropped but the patient remained asymptomatic without hypotension or tachycardia, so no transfusion was given. He was taken to the OR on 11/14/2022 where he underwent evacuation of his remaining blood clots and TURBT of his known bladder tumors. Postoperatively, we ran CBI for an additional 24 hours. We stopped the CBI on POD #1 and removed the catheter on POD #2. The patient developed a fever on the evening of his surgery. He had been prophylaxed with IV Ancef preoperatively. His admitting urine culture was not growing any significant uropathogens. He was started on oral Cipro postoperatively and remained aafebrile subsequently. Home Meds and New Rx's Prescriptions: New ciprofloxacin HCl 500 mg Tablet 500 mg PO BID Qty: 0 0RF No Action losartan 50 MG tablet 100 mg PO DAILY aspirin 81 MG tablet,chewable 81 mg PO DAILY magnesium oxide 250 MG tablet 250 mg PO DAILY AM omeprazole 20 mg capsule,delayed release(DR/EC) 20 mg PO DAILY propranolol 60 mg capsule,extended release 24 hr 60 mg PO DAILY Spiriva Respimat 2.5 mcg/actuation mist 2 puff inhalation DAILY Calcium 600 + D(3) 600 mg calcium- 200 unit Capsule 1 cap PO DAILY albuterol sulfate [ProAir HFA] 8.5 GM HFA aerosol inhaler 2 puff Inhalation Q4H Qty: 0 0RF Discharge Instructions Additional Instructions: No lifting over 10 pounds or straining for 1 week May return to work 11/25/2022 (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) Followup appt with me 1 to 2 weeks to review pathology results Activity:: no lifting over 10 pounds Equipment/Supplies:: No Equipment Needed Diet:: As Tolerated Discharge Orders Discharge Orders: Discharge Order (Routine); Ordered 11/16/22 Ordered By: Lonnie Saxena Discharge Data Discharge Comment: OK discharge with hospitalists DS: Summary Time Spent with Patient providing and/or coordinating discharge services: Less than 30 minutes Status at Discharge Functional status at discharge: independent ambulation Overall status at discharge: patient is progressing back to baseline Mental Status: mental status grossly normal Speech and Movement: speech and movement normal Mood: congruent mood Affect: normal affect Exam Const General: comfortable HENMT Ears: hearing grossly impaired Resp Effort & Inspection: normal respiratory effort GI Inspection: normal to inspection Palpation: soft, not firm and no guarding Neuro General: patient alert and patient awake Psych Mental Status: mental status grossly normal Speech and Movement: speech and movement normal Mood: congruent mood Affect: normal affect DS: Data Vitals/I&O Vitals and I&O: Vital Signs Temperature 37 C 11/16/22 07:32 Temperature Source Tympanic 11/16/22 07:32 Pulse 67 11/16/22 07:32 Pulse Rhythm Regular 11/16/22 04:27 Respiratory Rate 17 11/16/22 07:32 Respiratory Effort 11/16/22 04:27 Respiratory Depth Normal 11/16/22 04:27 Respiratory Pattern Normal 11/16/22 04:27 Blood Pressure 161/77 H 11/16/22 07:32 Blood Pressure Mean 73 11/13/22 22:16 Blood Pressure Position Sitting 11/13/22 18:02 Pulse Oximetry 97 11/16/22 07:32 Respiratory End-tidal CO2 25 11/14/22 14:39 Oxygen Delivery Method Room Air 11/16/22 07:32 Oxygen Flow Rate 0 11/16/22 07:32 Pain Level 0 11/15/22 19:35 Comment 11/15/22 19:35 Intake & Output 11/15/22 11/15/22 11/16/22 11:59 23:59 11:59 Intake Total 1000 / 1230 230 / 1230 Output Total 550 / 550 500 / 500 Balance 1000 / 680 -320 / 680 -500 / -500 Weight 78.8 kg 79.3 kg Intake: IV 1000 / 1050 50 / 1050 Oral 180 / 180 Output: Urine 550 / 550 500 / 500 Other: Urine Color Yellow Light Dalila Turk Urine Appearance Clear Clear Clear Comment order to stop irrigation at this time. Stool Size Small Large Stool Characteristics Formed Formed Brown Data Completed and Pending Labs on day of discharge: Labs from last 24 hours 11/16/22 11/16/22 11/15/22 06:35 06:35 13:02 WBC Pending RBC Pending Hgb Pending 7.8 L Hct Pending 24.3 L MCV Pending MCH Pending MCHC Pending RDW Pending Plt Count Pending MPV Pending Immature Gran % Pending Neutrophils % Pending Lymphocytes % Pending Monocytes % Pending Eosinophils % Pending Basophils % Pending Absolute Neutrophils Pending Absolute Lymphocytes Pending Absolute Monocytes Pending Absolute Eosinophils Pending Absolute Basophils Pending Sodium 140 Potassium 3.8 Chloride 110 H Carbon Dioxide 22.7 Anion Gap 7.3 BUN 16 Creatinine 1.3 Est GFR (CKD-EPI 2020) 55.53 Glucose 108 H Calcium 8.0 L Magnesium 1.9 Preliminary micro results at discharge 11/13/22 20:50 Urine Culture - Preliminary Urine - Reflex from [facility] All Active Problems Fever (Acute) Bladder tumor (Acute) Acute blood loss anemia (Acute) Hematuria (Acute) Acute urinary retention (Acute) Mixed hearing loss, 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) DVT prophylaxis (Acute) Discharge planning issues (Acute) Bronchospasm (Acute) Community acquired pneumonia of both lungs (Acute) History of prostate cancer (Chronic) CKD (chronic kidney disease), stage III (Chronic) Thrombocytopenia (Chronic) Rales (Chronic) Listed as basilar rales in PCP chart 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 Father Cardiovascular disease Brother No problems noted. 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
[2022-11-16] MEDS: Ciprofloxacin 500 MG TAB PO (07:58)
[2022-11-16] MEDS: Omeprazole 20 MG CAPCR PO (07:58)
[2022-11-16] MEDS: Losartan 50 MG TAB PO (07:58)
[2022-11-16] MEDS: Propranolol 60 MG CAPCR PO (07:58)
[2022-11-16 08:03] LABS: Diff Comment PLT Morph Reviewed; Platelet Count 42 10^3/uL (130-400); RBC Morphology Normal
[2022-11-16] MEDS: Tiotropium Bromide-Respimat 10 PUFF INH 2 PUFF IH (08:17)
--- NOTE | 2022-11-16 08:42 | PDOC.CMDIS ---
- If Service Date Differs Date of service: 11/16/22 Time of Service: 08:42 LACE Index Scoring Tool - Questions: Length of Stay (in days): 3 Acuity (Admit via E.D.?): Yes Comorbidities: Any Tumor, Liver or Renal Disease E.D. Visits: 3 - Answers: Total Score: 14 Risk of Readmission: High Risk Care Management Discharge Reason for Hospitalization: Hematuria Discharge Plan: Marleny will likely return home, possibly with new home health services, when medically cleared. He will follow up with his community providers and transport via private vehicle with family. Patient/Family Education Needs: Review discharge instructions, discuss Ask Me Three.
== END 2022-11-16 11:03 | disposition home or self-care (01) | DRG 669 ==
LOC: ER 22:23 → MS 22:51
PROVIDERS: Internal Medicine; Nurse Practitioner Family; Urology; Admitting Provider Family Medicine; Emergency Provider Student in an Organized Health Care Education/Training Program; PCP Family Medicine; Visit Provider Family Medicine
PROC: 0TBB8ZZ Excision of Bladder, Via Natural or Artificial Opening Endoscopic (ICD-10-PCS; CPT 52234; principal; 2022-11-14 12:30)
DX: C67.5 Malignant neoplasm of bladder neck (principal); D62 Acute posthemorrhagic anemia; I85.10 Secondary esophageal varices without bleeding; R31.0 Gross hematuria; R33.8 Other retention of urine; D69.6 Thrombocytopenia, unspecified; N18.30 Chronic kidney disease, stage 3 unspecified; Z85.46 Personal history of malignant neoplasm of prostate; H90.6 Mixed conductive and sensorineural hearing loss, bilateral; H80.93 Unspecified otosclerosis, bilateral; J44.9 Chronic obstructive pulmonary disease, unspecified; J68.8 Other respiratory conditions due to chemicals, gases, fumes and vapors; I12.9 Hypertensive chronic kidney disease with stage 1 through stage 4 chronic kidney disease, or unspecified chronic kidney disease; K74.60 Unspecified cirrhosis of liver
CPT/HCPCS: 52234; 36415; 51702; 80048; 80053; 85027; 86850; 86900; 86901; 87635; 88305; 94640; 99223; 99232; 99238; 99285; 81003; 81015; 83735; 85014; 85018; 85025; 85610; 87086; J0690; J3490

== ENCOUNTER → 2022-11-26 08:00 | Outpatient (BNVA) | payer OTHER, MEDICARE, SELFPAY | PROVIDERS: PCP Family Medicine; Referring Provider Family Medicine; Visit Provider Urology | DX: C67.9 Malignant neoplasm of bladder, unspecified (principal); Z92.3 Personal history of irradiation; Z85.46 Personal history of malignant neoplasm of prostate | CPT/HCPCS: 99214 ==

== ENCOUNTER 2023-06-30 07:51 | Day surgery (SDC) | payer OTHER, MEDICARE, SELFPAY ==
[2023-06-30] VITALS (7 sets, daily range): BP systolic 110–185; BP diastolic 38–88; PULSE 56–65; RESP 17–20; TEMP 36.4–36.6; O2SAT 98–100; BMI 29.2
[2023-06-30] MEDS: Lactated Ringers 1,000 ML 80 ML IV (08:29)
--- NOTE | 2023-06-30 08:59 | W.ANESPRE ---
General Info Date of Service Date Performed: 06/30/23 Height: 5 ft 5 in Weight: 79.8 kg Body Mass Index (BMI): 29.2 Surgical Procedure: Operation Date: 06/30/23 10:25 Proposed Procedure Side Surgeon p Cystoscopy w/Transurethral Resection Bladder Tumor Lonnie Saxena MD s Bladder Installation, Mytomycin Lonnie Saxena MD Meds Allergies and Home Medications Allergies Allergy/AdvReac Type Severity Reaction Status Date / Time ATUL Inhibitors AdvReac cough Verified 06/30/23 08:19 Home Medication Medication Instructions Recorded aspirin 81 mg chewable tablet 81 mg PO DAILY 02/25/17 losartan 50 mg tablet 100 mg PO DAILY 02/25/17 magnesium oxide 250 mg PO DAILY AM 02/25/17 calcium carbonate 600 mg-vitamin 1 cap PO DAILY 09/03/18 D3 5 mcg (200 unit) capsule (Calcium 600 + D(3)) albuterol sulfate 90 mcg/actuation 2 puff inhalation Q4H ##0 02/13/19 aerosol inhaler (ProAir HFA) omeprazole 20 mg capsule,delayed 20 mg PO DAILY 05/31/21 release propranolol 60 mg capsule,24 60 mg PO DAILY 05/31/21 hr,extended release tiotropium bromide 2.5 2 puff inhalation DAILY 05/31/21 mcg/actuation mist for inhalation (Spiriva Respimat) Current Visit Medications: Current Medications Generic Name Dose Route Start Last Admin Trade Name Freq PRN Reason Stop Dose Admin Mitomycin 40 mg/ Sodium 0 mg 06/30/23 06:00 Chloride 40 ml BLADIN 06/30/23 16:00 TODAY MAXIMUS Ringer's Solution 1,000 mls @ 80 mls/hr 06/30/23 06:00 06/30/23 08:29 IV 07/27/23 23:59 80 mls/hr INFUSION MAXIMUS Administration Cefazolin Sodium/Dextrose 2 gm in 50 mls @ 100 mls/hr 06/30/23 06:00 Ancef Duplex IVPB 06/30/23 16:00 PREOP MAXIMUS IV Miscellaneous Supplies 1 each 06/30/23 06:00 Iv Access IV 07/27/23 23:59 DIRECTED MAXIMUS Sodium Chloride 0 ml 06/30/23 06:00 Normal Saline Flush 10 Ml Syr IV 07/27/23 23:59 PRN PRN Sodium Chloride 0 ml 06/30/23 06:00 Normal Saline 10 Ml Vial IJ 07/27/23 23:59 DIRECTED PRN Sterile Water 0 ml 06/30/23 06:00 Water,Injection,Sterile 10 Ml Vial IJ 07/27/23 23:59 DIRECTED PRN PFSH Active Problems Active Problems: Problem Status Onset Code Urgency incontinence N39.41 Bladder cancer C67.9 Mixed hearing loss, 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 Bronchospasm J98.01 Community acquired pneumonia of both lungs J18.9 S/P radiation therapy Z92.3 History of prostate cancer Z85.46 CKD (chronic kidney disease), stage III N18.3 Thrombocytopenia D69.6 Rales R09.89 Restrictive lung disease J98.4 Hypertension I10 Medical History Medical History Carpal tunnel syndrome Cirrhosis of liver Esophageal varices Gross hematuria Internal hemorrhoid Other otosclerosis, bilateral Prostate cancer Right carpal tunnel syndrome Surgical History Surgical History S/P endoscopic carpal tunnel release (09/09/18) Tobacco Smoking/Tobacco Use Status: Never Alcohol Alcohol Intake: former Year quit: 1994 Substance Use Substance use: Never Substance use type: does not use Vital Signs and Lab Results Vital Signs Most Recent Vital Signs in EMR: Most Recent Vital Signs Temp Pulse Resp BP Pulse Ox 36.6 C 57 L 19 185/65 H 99 06/30/23 08:08 06/30/23 08:08 06/30/23 08:08 06/30/23 08:08 06/30/23 08:08 Lab Results Blood Type / Crossmatch: No Data to Display Complete Blood Count: No Data to Display Complete Metabolic Panel: No Data to Display Liver Function Panel: No Data to Display Coagulation Panel: No Data to Display Cardiac Panel: No Data to Display Arterial Blood Gas: No Data to Display Venous Blood Gas: No Data to Display Pancreas Panel: No Data to Display Thyroid Panel: No Data to Display Infectious Disease: No Data to Display Blood Cultures: No Data to Display Toxicology Panel: No Data to Display Imaging and Studies Imaging and Studies Study information below may be from another EMR and interpreted by another provider. Please see original notes in EMR for more complete details. EKG Summary: 12/08: sinus rhythm Pulmonary Function Summary: 09/03: mild restrictive dz. Anesthesia Assessment and Plan Anesthesia History Personal History: No History of Anesthesia Complications Family History: No Family History of Anesthesia Complications Exercise Tolerance Exercise Tolerance: Metabolic Equivalents>4 Pertinent Negatives Pertinent Negatives: No Major Cardiovascular Symptoms or Complaints and No Major Pulmonary Symptoms or Complaints Cardiac & Pulmonary Exam Cardiac Exam: Normal S1/S2 Heart Sounds Pulmonary Exam: Rales Present (bilateral posterior, diminished ) Implantable Cardiac Device Does patient have a Pacemaker or an ICD?: No Airway Exam Known Difficult Airway: No Mallampati Class: 2 Mouth Opening: Normal (> 3cm) Thyromental Distance: Greater than 3 cm Neck Range of Motion: Limited ROM Neck Circumference: Thick Teeth Condition: Removable Dentures/Plates Upper and Edentulous ASA Classification ASA Score: ASA 3 Emergency Case?: No NPO Status NPO Status: NPO Clears >2 hours, Solids >8 hours Anesthesia Plan Resuscitation Status: Full Code Anesthesia Technique: General Anesthesia Airway Planned: Natural Airway Monitors Used: Standard Monitors
--- NOTE | 2023-06-30 10:16 | HPE_ITS ---
Date of service: 06/30/23 Time of Service: 10:16 Assessment and Plan Assessment and plan (1) Bladder cancer: Status: Acute Assessment and plan: For cystoscopy with TUR bladder tumor. We will plan to instill Mitomycin-C into his bladder immediately following the procedure. History of Present Illness History of Present Illness Chief Complaint: Bladder Cancer Narrative: This is an 82-year-old gentleman who has a history of prostate cancer.? He was treated with radiation therapy. He developed gross hematuria and we did a cystoscopy in the office.? Bladder tumors were identified and we made plans to do an elective cystoscopy and transurethral resection. Before the elective surgery could be accomplished, he developed clot retention and required hospitalization.? We did a clot evacuation and transurethral resection/cauterization of his tumor.? His surgical pathology demonstrated a low-grade, noninvasive urothelial cell carcinoma of the bladder.? There was no evidence of recurrence on his 3-month follow-up cystoscopy?but on his 9 month cystoscopy, multiple small papillary lesions were found on the floor of the bladder. He presents for cystoscopy and TURBT with an instillation of Mitomycin C into the bladder. Review of Systems Narrative: No fevers or chills Decreased hearing acuity. No vision change or dysphasia No diabetes or thyroid No shortness of breath, cough or hemoptysis No chest pain or palpitations Recent blood from rectum. 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 Father Cardiovascular disease Brother No problems noted. 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 Do you feel safe at home: Yes Do you feel safe in your relationship?: Yes Meds Allergies and Home Medications Allergies Allergy/AdvReac Type Severity Reaction Status Date / Time ATUL Inhibitors AdvReac cough Verified 06/30/23 08:19 Home Medications Medication Instructions Recorded Confirmed Type aspirin 81 mg chewable tablet 81 mg PO DAILY 02/25/17 06/30/23 History losartan 50 mg tablet 100 mg PO DAILY 02/25/17 06/27/23 History magnesium oxide 250 mg PO DAILY AM 02/25/17 06/30/23 History calcium carbonate 600 mg-vitamin 1 cap PO DAILY 09/03/18 06/30/23 History D3 5 mcg (200 unit) capsule (Calcium 600 + D(3)) albuterol sulfate 90 mcg/actuation 2 puff inhalation Q4H ##0 02/13/19 06/30/23 Rx aerosol inhaler (ProAir HFA) omeprazole 20 mg capsule,delayed 20 mg PO DAILY 05/31/21 06/30/23 History release propranolol 60 mg capsule,24 60 mg PO DAILY 05/31/21 06/30/23 History hr,extended release tiotropium bromide 2.5 2 puff inhalation DAILY 05/31/21 06/27/23 History mcg/actuation mist for inhalation (Spiriva Respimat) Exam Const General: cooperative Neck Neck: supple Resp Effort & Inspection: normal respiratory effort Auscultation: wheezes (end expiratory) Cardio Rate: regular rate Rhythm: regular rhythm GI Palpation: soft and no masses Neuro General: patient alert, patient awake and patient oriented x3 Results Last Vital Signs Temp 36.6 C 06/30/23 08:08 Pulse 57 L 06/30/23 08:08 Resp 19 06/30/23 08:08 BP 185/65 H 06/30/23 08:08 Pulse Ox 99 06/30/23 08:08 Time Spent Time spent with Patient: <40 minutes Time was spent: other
[2023-06-30] MEDS: ceFAZolin 2 GM/50 ML BAG IVPB (10:52)
[2023-06-30] MEDS: Lidocaine 2% Jelly 11 ML SYR (11:08)
--- NOTE | 2023-06-30 11:20 | BLADDER_PTH ---
PATIENT: Marleny Martin LOC: [facility] U#:[id number] AGE/SX: 83/M ROOM: RE06/30/[address]: Lonnie Saxena MD : [id number] BED: DIS: 06/30/2023 SPEC #: [id number] RECD: 06/30/23 14:22 STATUS: ROMIE REQ #: [id number] ARAMIS: 06/30/23 11:[address]: Lonnie Saxena DEPT: Surgical Specimen RECD BY: Ce Guerra ENTERED: 06/30/23 14:23 SP TYPE: Bladder OTHR DR: Edgar Marie Tissues: 1 - BLADDER BIOPSY Procedures: GROSS AND MICRO LEVEL 4 Comments: [id number]
--- NOTE | 2023-06-30 11:24 | W.PM.DSUDISC ---
Date of service: 06/30/23 Time of Service: 11:24 Discharge Plan Disposition Patient Disposition: Home Condition: Stable Discharge Details Reason For Visit: bladder cancer Attending Provider: Lonnie Saxena Primary Care Provider: Edgar Marie Home Meds and New Rx's Prescriptions: No Action losartan 50 MG tablet 100 mg PO DAILY aspirin 81 MG tablet,chewable 81 mg PO DAILY magnesium oxide 250 MG tablet 250 mg PO DAILY AM omeprazole 20 mg capsule,delayed release(DR/EC) 20 mg PO DAILY propranolol 60 mg capsule,extended release 24 hr 60 mg PO DAILY Spiriva Respimat 2.5 mcg/actuation mist 2 puff inhalation DAILY Calcium 600 + D(3) 600 mg calcium- 200 unit Capsule 1 cap PO DAILY albuterol sulfate [ProAir HFA] 8.5 GM HFA aerosol inhaler 2 puff Inhalation Q4H Qty: 0 0RF Discharge Instructions Additional Instructions: leave catheter clamped with Mitomycin C in bladder for 1 to 2 hours the unclamp and remove catheter unclamp and remove catheter sooner prn suprapubic pain followup 1 to 2 weeks for path result Activity:: Activity as Tolerated Shower/Bathe:: 24 hours Diet:: As Tolerated Discharge Orders Discharge Orders: Discharge Order (Routine); Ordered 06/30/23 Ordered By: Lonnie Saxena DS: Diagnosis Discharge Diagnosis (1) Bladder cancer: Status: Acute
--- NOTE | 2023-06-30 11:31 | ROE_ITS ---
Date of service: 06/30/23 Time of Service: 11:31 Operative Note Operative Note DATE OF PROCEDURE: 06/30/23 PRE-OP DIAGNOSIS: bladder cancer POST-OP DIAGNOSIS: same PROCEDURE: Cystoscopy, transurethral resection and fulguration of bladder tumor, instillation of Mitomycin-C into the bladder SURGEON: Lonnie Saxena ANESTHESIA TYPE: Local By Surgeon and General:No Airway Refer to Anesthesia Record ESTIMATED BLOOD LOSS: 10 PATHOLOGY: other (Bladder biopsy) COMPLICATIONS: None Patient was transported to: PACU Patient's condition: stable Implants: 16 [place] Gardner catheter with 5 cc balloon Indications: This is an 83-year-old gentleman who has a history of gross hematuria. He underwent a cystoscopy and we found a papillary lesion in the bladder. We had scheduled him for an elective transurethral resection. He then developed gross hematuria with clots requiring admission to the hospital. We did his cystoscopy, clot evacuation and transurethral resection on a more urgent basis. His surgical pathology demonstrated low-grade, noninvasive urothelial cell carcinoma of the bladder. His 3-month cystoscopy showed no recurrent tumor, but his 9-month cystoscopy showed papillary lesions. He presents now for transurethral resection and instillation of Mitomycin-C into the bladder Findings: Papillary lesion on the posterior bladder wall Procedure Description: The patient was brought to the operating room on 06/30/2023. After successful induction of general anesthesia, he was placed in the dorsal lithotomy position. He was given preoperative IV antibiotics. 2% Xylocaine jelly was instilled into his urethra to act as a local anesthetic. A 22 [place] rigid cystoscope was then passed through the urethra into the bladder. The urethra and bladder were inspected with the 30 degree lens. The pendulous, bulbar and membranous urethra was appeared normal with no strictures. The mucosa was blanched consistent with his previous radiation treatments. The bladder neck was entered and the bladder mucosa was inspected. Both ureteral orifices appeared normal with no blood coming from either side. On the posterior bladder wall, down towards the floor of the bladder, there was a cluster of papillary lesions consistent with low-grade urothelial cell carcinoma. No additional lesions were seen. The cystoscope was withdrawn and it was replaced with a 24 [place] resectoscope sheath. We used the Shoette resectoscope and bipolar cautery to take a small biopsy of one of the lesions. We then cauterized the remaining area affected by the papillary mucosa. At the completion of the procedure, no active bleeding was seen. We then filled the bladder with irrigant tumors removed the resectoscope. A 16 [place] Gardner catheter was passed through the urethra into the bladder. The catheter balloon was inflated with 10 cc of sterile water. The bladder was drained then a dose of Mitomycin-C (40 mg mixed in 40 mL of dilute note) was instilled into the catheter. The catheter was then clamped leaving the mitomycin solution in place. The patient tolerated the procedure well with no complications. He was taken to the recovery room in stable condition. We will attempt to leave the catheter clamped for 1 to 2 hours postoperatively.
[2023-06-30] MEDS: Albuterol/Ipratropium 3 ML UPD VIAL UPD (11:38)
[2023-06-30] MEDS: Phenazopyridine 200 MG TAB PO (12:16)
--- NOTE | 2023-06-30 13:31 | W.ANESPOSTOP ---
Postoperative Evaluation Date, Time and Location Date Performed: 06/30/23 Time Performed: 12:35 Patient Location: Day Surgery Unit Vital Signs Most Recent Imported Vital Signs: Most Recent Vital Signs Temp Pulse Resp BP Pulse Ox 36.5 C 64 17 124/70 99 06/30/23 12:31 06/30/23 12:31 06/30/23 12:31 06/30/23 12:31 06/30/23 12:31 Pain Score Most Recent Pain Score: Most Recent Pain Score Pain Level 0 06/30/23 12:31 Assessment Mental Status: Awake (Alert & Oriented to Patient Baseline) Airway and Respiratory Function: Patent airway with normal (patient baseline) respiratory exam Cardiovascular Function: Hemodynamically Stable Hydration Status: Adequately Hydrated Nausea & Vomiting: No Nausea or Vomiting Pain: Pt. Denies Any Pain Peripheral Nerve Block: Patient did not receive a nerve block
== END 2023-06-30 13:34 | disposition home or self-care (01) ==
PROVIDERS: PCP Family Medicine; Visit Provider Urology
PROC: 0TBB8ZZ Excision of Bladder, Via Natural or Artificial Opening Endoscopic (ICD-10-PCS; CPT 52224; principal; 2023-06-30 10:15)
PROC: (CPT 52224; 2023-06-30 10:15)
DX: C67.9 Malignant neoplasm of bladder, unspecified (principal); D69.6 Thrombocytopenia, unspecified; N18.30 Chronic kidney disease, stage 3 unspecified; I12.9 Hypertensive chronic kidney disease with stage 1 through stage 4 chronic kidney disease, or unspecified chronic kidney disease; C61 Malignant neoplasm of prostate
CPT/HCPCS: 52224; 88305; J0690; J1100; J2405; J2704; J7620; J9280

== ENCOUNTER → 2023-07-15 14:38 | Outpatient (BNVA) | payer OTHER, MEDICARE, SELFPAY | PROVIDERS: PCP Family Medicine; Referring Provider Family Medicine; Visit Provider Urology | DX: C67.9 Malignant neoplasm of bladder, unspecified (principal) | CPT/HCPCS: 99213 ==

== ENCOUNTER 2023-07-29 15:11 | Outpatient (REF) | payer OTHER, MEDICARE, SELFPAY ==
[2023-07-30 18:26] LABS: PSA, Screening 0.1 ng/mL (<=6.5)
== END 2023-07-29 15:12 | disposition home or self-care (01) ==
LOC: NCHCN 15:11
PROVIDERS: PCP Family Medicine; Visit Provider Family Medicine
DX: Z12.5 Encounter for screening for malignant neoplasm of prostate (principal); R33.9 Retention of urine, unspecified
CPT/HCPCS: 84153

== ENCOUNTER 2023-09-28 10:54 | Emergency (ER) | payer OTHER, MEDICARE, SELFPAY ==
[2023-09-28] VITALS (10 sets, daily range): BP systolic 148–154; BP diastolic 60–86; PULSE 80–102; RESP 20; TEMP 37; O2SAT 95–99
--- NOTE | 2023-09-28 11:15 | DI.RAD_ITS ---
Exam(s) XR CHEST 2V PA LATERAL EXAM: XR CHEST 2V PA LATERAL CLINICAL HISTORY: productive cough. TECHNIQUE: 2D digital imaging was performed. COMPARISON: CR XR PORTABLE CHEST AP from 12/03/2021 FINDINGS: 2 views: Heart size is normal. The mediastinum is not widened. Bilateral pulmonary fibrosis changes are again noted. No pleural effusions. There is a band of density in the left lower lobe posterior basal segment seen behind the left heart shadow. This may represent infiltrate not previously present. IMPRESSION: Left lower lobe infiltrate. Findings superimposed upon chronic interstitial disease most probably pu lmonary fibrosis. There are no pleural effusions. No pulmonary edema. DATA REPOSITORY: RADIATION DOSE DELIVERED:
[2023-09-28 11:52] LABS: Lactate 1.8 mmol/L (0.6-1.4)
[2023-09-28 11:56] LABS: Abs Immature Grans 0.08 10^3/uL (0.0-0.06); Absolute Basophil Count 0.06 10^3/uL (0.0-0.2); Absolute Eosinophil Count 0.13 10^3/uL (0.0-0.7); Absolute Lymphocyte Count 0.85 10^3/uL (1.2-3.4); Absolute Monocyte Count 0.57 10^3/uL (0.1-0.8); Absolute Neutrophil Count 6.16 10^3/uL (1.2-6.7); Basophils % 0.8; Eosinophils % 1.7; HCT 29.7 % (40.0-50.0); HGB 9.7 g/dL (13.5-17.5); Lymphocytes % 10.8; MCHC 32.7 % (32.0-36.0); MCV 86 fL (80-95); MPV 12.2 fL (8.0-11.0); Monocytes % 7.3; Neutrophils % 78.4; RBC 3.46 10^6/uL (4.36-5.78); RDW 15.1 % (11.8-14.1); RDW-SD 46.3 fL; WBC 7.85 10^3/uL (4.4-10.8)
[2023-09-28 12:09] LABS: Diff Comment Diff Reviewed; Platelet Count 95 10^3/uL (130-400); RBC Morphology Normal
[2023-09-28 12:12] LABS: ALT 24 U/L (16-63); AST 39 U/L (15-37); Albumin 2.1 g/dL (3.4-5.0); Alkaline Phosphatase 154 U/L (46-116); Anion Gap 13.2 mmol/L (3-11); BUN 36 mg/dL (7-18); Bilirubin, Total 1.2 mg/dL (0.2-1.0); CO2 21.8 mmol/L (21.0-32.0); CREATININE 1.5 mg/dL (0.70-1.30); Calcium 9.2 mg/dL (8.5-10.1); Chloride 106 mmol/L (98-107); Estimated GFR 46.48 (mL/min/1.73m2); Glucose 126 mg/dL (74-106); Potassium 3.7 mmol/L (3.5-5.1); Sodium 141 mmol/L (136-145); Total Protein 8.8 g/dL (6.4-8.2)
[2023-09-28 12:25] LABS: D-Dimer 653 ng/mlFEU (<500)
--- NOTE | 2023-09-28 12:30 | DI.CT_ITS ---
Exam(s) CT CHEST PE CTA EXAM: CT CHEST PE CTA CLINICAL HISTORY: tachycardia, short of breath, elevated dimer. TECHNIQUE: Imaging Protocol: CT angiography of the chest was performed using pulmonary embolus tito col. Multi planar reconstructions were performed. CONTRAST MATERIAL: Intravenous: Omnipaque 350 Contrast volume: 100 cc COMPARISON: CT CT CHEST PE CTA from 12/03/2021 CR,XR XR CHEST 2V PA LATERAL from 09/28/2023 FINDINGS: CHEST: PULMONARY ARTERIES: There are no obvious intraluminal filling defects to suggest acute pulmonary embo li.No evidence of focal pulmonary infarction. LUNGS: Again noted is chronic appearing bilateral interstitial fibrosis pattern in both lung viera w hich appears relatively stable when compared to the November 2021 CT study. No new confluent infiltra meri and no pleural effusions evident. No obvious infiltrate on chest CT scan to correlate with what is seen of the high left side of the heart on the recent chest x-ray. MEDIASTINUM: There is no hilar nor mediastinal adenopathy. CARDIAC: Heart size is upper normal. There is no pericardial effusion.Caliber of the thoracic aorta is within normal limits. No evidence of dissection. There is no significant shift of the interventri cular septum. PARTIALLY VISUALIZED UPPERMOST ABDOMEN: Cholelithiasis noted without evidence of obvious acute cholec ystitis. Splenomegaly also noted. Spleen size is 13.5 cm craniocaudal. Both adrenal glands are sli ghtly thickened but unchanged. OSSEOUS: No significant osseous lesions.No fractures.. IMPRESSION: 1. No evidence of acute pulmonary emboli. No evidence of pulmonary infarction.No obvious new conflue nt infiltrates nor pleural effusions. 2. Again noted is extensive bilateral pulmonary fibrosis which appears relatively stable when compare d to prior CT scan of November 2021. Called to ER. RADIATION DOSE DELIVERED: Total DLP DATA REPOSITORY: All CT scans at this facility are submitted to the National Radiology Data Registry (NRDR) Dose Index Registry (DIR) with the [employer] ([employer]). RADIATION OPTIMIZATION: All CT scans at this facility use at least one of these dose optimization te chniques: automated exposure control; mA and/or kV adjustment per patient size (includes targeted exa ms where dose is matched to clinical indication); or iterative reconstruction.
--- NOTE | 2023-09-28 12:33 | DI.VRAD_ITS ---
PROCEDURE INFORMATION: Exam: XR Chest Exam date and time: 09/28/2023 12:12 PM Age: 83 years old Clinical indication: Cough TECHNIQUE: Imaging protocol: Radiologic exam of the chest. Views: 2 views. COMPARISON: CR XR PORTABLE CHEST AP 12/03/2021 11:27 AM FINDINGS: Lungs: Opacity in the left base may represent atelectasis or pneumonia.. Pleural spaces: Unremarkable. No pleural effusion. No pneumothorax. Heart/Mediastinum: Unremarkable. No cardiomegaly. Bones/joints: Unremarkable. IMPRESSION: Opacity in the left base may represent atelectasis or pneumonia.. Dictated and Authenticated by: Trice Dos Santos MD. Ordering:VANESSA Wren MD
[2023-09-28] MEDS: Benzonatate 100 MG CAP PO (12:40)
[2023-09-28] MEDS: Normal Saline - Diluent 50 ML VIAL IJ (13:05)
[2023-09-28] MEDS: Omnipaque 350 MG/ML 100 ML BTL IJ (13:06)
--- NOTE | 2023-09-28 13:21 | W.ED.GENAD ---
Discharge Plan Disposition Patient Disposition: Home Condition: Good Discharge Details Clinical Impression: Cough Primary Care Provider: Edgar Marie ED Provider: Siena Nolasco Home Meds and New Rx's Prescriptions: No Action losartan 50 MG tablet 100 mg PO DAILY aspirin 81 MG tablet,chewable 81 mg PO DAILY magnesium oxide 250 MG tablet 250 mg PO DAILY AM omeprazole 20 mg capsule,delayed release(DR/EC) 20 mg PO DAILY propranolol 60 mg capsule,extended release 24 hr 60 mg PO DAILY Spiriva Respimat 2.5 mcg/actuation mist 2 puff inhalation DAILY Calcium 600 + D(3) 600 mg calcium- 200 unit Capsule 1 cap PO DAILY albuterol sulfate [ProAir HFA] 8.5 GM HFA aerosol inhaler 2 puff Inhalation Q4H Qty: 0 0RF Discharge Instructions Instructions: Chronic Cough (ED) Additional Instructions: Call your primary care doctor tomorrow to schedule an appointment within 48 hours to follow up on your visit today. Continue to use your home breathing treatments. Return to the emergency department for new or worsening symptoms, including chest pain, worsening shortness of breath, feeling like you are going to pass out, or if you have any other concerns. Stand Alone Forms: Work Release Referrals: Edgar Marie [Primary Care Provider] - Medical Decision Making 83yo M with hx HTN, thrombocytopenia, CKD3, prostate cancer, restrictive lung disease, presenting via EMS for productive cough (yellowish sputum) x 3 months. History from patient and EMS. Received duoneb during transport. Symptoms did not acutely worsen today, however they have been persistent and the cough has begun to interfere with his sleep, he does not feel able to work tomorrow. Vital signs reassuring on arrival, no hypoxia, slightly tachycardiac to low 90's. Clear lungs on exam, no respiratory distress; does have frequent cough. Symptoms not suggestive of acute cornary disease. Not septic. Given tessalon for symptoms. CXR independently reviewed, no clear focal pneumonia or pneumothorax on my view, agree with radiology read below. COVID negative. Labs reviewed as below, CBC reassuring with anemia and thrombocytopenia which is at or better than baseline for patient based on [facility] record review. CMP with no actionable abnormalities, Cr at baseline. Lactic reassuring, <2.0. Dimer elevated; CT for PE independently reviewed, no large saddle embolus or focal pneumonia on my view, agree with radiology read below. On reassessment he remains non-toxic appearing with reassuring vital signs. No desat with ambulation. Appropriate to followup with PCP for further workup and management. Discharged home; discharge instructions including return precautions were reviewed with patient who verbalized understanding. All questions were answered and they are in full agreement with the plan. Medical Records Medical records reviewed: Yes I reviewed the patient's medical records. Imaging Data Radiologic Study: Imaging: X-Ray Radiologist's impression: IMPRESSION: Left lower lobe infiltrate. Findings superimposed upon chronic interstitial disease most probably pulmonary fibrosis. There are no pleural effusions. No pulmonary edema. Radiologic Study #2: Imaging: CT Scan Radiologist's impression: IMPRESSION: 1. No evidence of acute pulmonary emboli. No evidence of pulmonary infarction.No obvious new confluent infiltrates nor pleural effusions. 2. Again noted is extensive bilateral pulmonary fibrosis which appears relatively stable when compared to prior CT scan of November 2021. Lab Data Lab results reviewed: Yes I reviewed the patient's lab results. Labs: Laboratory Tests Range/Units 09/28/23 11:45 WBC (4.4-10.8) 10^3/uL 7.85 RBC (4.36-5.78) 10^6/uL 3.46 L Hgb (13.5-17.5) g/dL 9.7 L Hct (40.0-50.0) % 29.7 L MCV (80-95) fL 86 MCH (27.0-33.0) pg 28.0 MCHC (32.0-36.0) % 32.7 RDW (11.8-14.1) % 15.1 H Plt Count (130-400) 10^3/uL 95 L MPV (8.0-11.0) fL 12.2 H Immature Gran % 1.0 Neutrophils % 78.4 Lymphocytes % 10.8 Monocytes % 7.3 Eosinophils % 1.7 Basophils % 0.8 Nucleated RBC % (0.0-0.3) % 0.0 Absolute Neutrophils (1.2-6.7) 10^3/uL 6.16 Absolute Lymphocytes (1.2-3.4) 10^3/uL 0.85 L Absolute Monocytes (0.1-0.8) 10^3/uL 0.57 Absolute Eosinophils (0.0-0.7) 10^3/uL 0.13 Absolute Basophils (0.0-0.2) 10^3/uL 0.06 RBC Morphology Normal D-Dimer (<500) ng/mlFEU 653 H VBG Lactate (0.6-1.4) mmol/L 1.8 H Sodium (136-145) mmol/L 141 Potassium (3.5-5.1) mmol/L 3.7 Chloride (98-107) mmol/L 106 Carbon Dioxide (21.0-32.0) mmol/L 21.8 Anion Gap (3-11) mmol/L 13.2 H BUN (7-18) mg/dL 36 H Creatinine (0.70-1.30) mg/dL 1.5 H Est GFR (CKD-EPI 2020) (mL/min/1.73m2) 46.48 Glucose (74-106) mg/dL 126 H Calcium (8.5-10.1) mg/dL 9.2 Total Bilirubin (0.2-1.0) mg/dL 1.2 H AST (15-37) U/L 39 H ALT (16-63) U/L 24 Alkaline Phosphatase (46-116) U/L 154 H Total Protein (6.4-8.2) g/dL 8.8 H Albumin (3.4-5.0) g/dL 2.1 L HPI General Mode of arrival: EMS. Date/Time Provider Initiated Documentation: 09/28/23 11:06. Limitations to Documentation: no limitations. Information obtained by: patient and EMS. HPI Narrative: 83yo M with hx HTN, thrombocytopenia, CKD3, prostate cancer, restrictive lung disease, presenting via EMS for productive cough x 3 months. History from patient and EMS. Received duoneb during transport. Patient reports cough has been progressively worsening over the past three months. Productive of yellowish sputum. Symptoms improve somewhat with home albuterol. He feels more fatigued than usual. Short of breath with coughing, otherwise no significant shortness of breath. No dyspnea on exertion or orthopnea. No chest pain or LE edema. No fevers, chills, rash, nausea, vomiting, or abdominal pain. Related Data Home Medications Medication Instructions Recorded Confirmed aspirin 81 mg chewable tablet 81 mg PO DAILY 02/25/17 09/28/23 losartan 50 mg tablet 100 mg PO DAILY 02/25/17 09/28/23 magnesium oxide 250 mg PO DAILY AM 02/25/17 09/28/23 calcium carbonate 600 mg-vitamin 1 cap PO DAILY 09/03/18 09/28/23 D3 5 mcg (200 unit) capsule (Calcium 600 + D(3)) albuterol sulfate 90 mcg/actuation 2 puff inhalation Q4H ##0 02/13/19 09/28/23 aerosol inhaler (ProAir HFA) omeprazole 20 mg capsule,delayed 20 mg PO DAILY 05/31/21 09/28/23 release propranolol 60 mg capsule,24 60 mg PO DAILY 05/31/21 09/28/23 hr,extended release tiotropium bromide 2.5 2 puff inhalation DAILY 05/31/21 09/28/23 mcg/actuation mist for inhalation (Spiriva Respimat) Previous Rx's Medication Instructions Recorded albuterol sulfate 90 mcg/actuation 2 puff inhalation Q4H ##0 02/13/19 aerosol inhaler (ProAir HFA) Allergies Allergy/AdvReac Type Severity Reaction Status Date / Time ATUL Inhibitors AdvReac cough Verified 09/28/23 11:03 General Stated Complaint: RespSymp MANGO: 3 Review of Systems Narrative: see HPI PFSH All Active Problems (Updated 09/28/23 @ 14:27 by Siena Nolasco MD) Cough (Acute) Urgency incontinence (Acute) Bladder cancer (Acute) Mixed hearing loss, 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) Bronchospasm (Acute) Community acquired pneumonia of both lungs (Acute) History of prostate cancer (Chronic) CKD (chronic kidney disease), stage III (Chronic) Thrombocytopenia (Chronic) Rales (Chronic) Listed as basilar rales in PCP chart 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 Father Cardiovascular disease Brother No problems noted. 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 Head: Normocephalic, atraumatic Neck: Trachea midline, Neck supple. Cardiac: RRR, no murmurs appreciated Resp: No respiratory distress. CTAB. Abd: Soft, non-distended, nontender : No suprapubic tenderness. Extremities: No deformities. No peripheral edema. Neurologic: GCS 15. Moves all extremities freely against gravity Course Vital Signs Vital signs: Vital Signs Temperature 37.0 C 09/28/23 10:54 Pulse 92 H 09/28/23 10:54 Respiratory Rate 20 09/28/23 10:54 Blood Pressure 154/86 H 09/28/23 10:54 Pulse Oximetry 99 09/28/23 10:54 Temperature 37.0 C 09/28/23 10:54 Temperature Source Oral 09/28/23 10:54 Pulse 100 H 09/28/23 11:31 Respiratory Rate 20 09/28/23 10:54 Respiratory Effort Normal 09/28/23 11:01 Blood Pressure 152/60 H 09/28/23 11:31 Blood Pressure Mean 87 09/28/23 11:31 Blood Pressure Position Sitting 09/28/23 10:54 Pulse Oximetry 97 09/28/23 11:50 Oxygen Delivery Method Room Air 09/28/23 10:54 Oxygen Flow Rate 0 09/28/23 10:54 Lab/Test Results Lab/Test Results: Laboratory Tests Range/Units 09/28/23 11:45 WBC (4.4-10.8) 10^3/uL 7.85 RBC (4.36-5.78) 10^6/uL 3.46 L Hgb (13.5-17.5) g/dL 9.7 L Hct (40.0-50.0) % 29.7 L MCV (80-95) fL 86 MCH (27.0-33.0) pg 28.0 MCHC (32.0-36.0) % 32.7 RDW (11.8-14.1) % 15.1 H Plt Count (130-400) 10^3/uL 95 L MPV (8.0-11.0) fL 12.2 H Immature Gran % 1.0 Neutrophils % 78.4 Lymphocytes % 10.8 Monocytes % 7.3 Eosinophils % 1.7 Basophils % 0.8 Nucleated RBC % (0.0-0.3) % 0.0 Absolute Neutrophils (1.2-6.7) 10^3/uL 6.16 Absolute Lymphocytes (1.2-3.4) 10^3/uL 0.85 L Absolute Monocytes (0.1-0.8) 10^3/uL 0.57 Absolute Eosinophils (0.0-0.7) 10^3/uL 0.13 Absolute Basophils (0.0-0.2) 10^3/uL 0.06 RBC Morphology Normal D-Dimer (<500) ng/mlFEU 653 H VBG Lactate (0.6-1.4) mmol/L 1.8 H Sodium (136-145) mmol/L 141 Potassium (3.5-5.1) mmol/L 3.7 Chloride (98-107) mmol/L 106 Carbon Dioxide (21.0-32.0) mmol/L 21.8 Anion Gap (3-11) mmol/L 13.2 H BUN (7-18) mg/dL 36 H Creatinine (0.70-1.30) mg/dL 1.5 H Est GFR (CKD-EPI 2020) (mL/min/1.73m2) 46.48 Glucose (74-106) mg/dL 126 H Calcium (8.5-10.1) mg/dL 9.2 Total Bilirubin (0.2-1.0) mg/dL 1.2 H AST (15-37) U/L 39 H ALT (16-63) U/L 24 Alkaline Phosphatase (46-116) U/L 154 H Total Protein (6.4-8.2) g/dL 8.8 H Albumin (3.4-5.0) g/dL 2.1 L
--- NOTE | 2023-09-28 13:33 | DI.VRAD_ITS ---
PROCEDURE INFORMATION: Exam: CTA Chest With Contrast Exam date and time: 09/28/2023 1:01 PM Age: 83 years old Clinical indication: Other: Tachycardia, short of breath, elevated dimer TECHNIQUE: Imaging protocol: Computed tomographic angiography of the chest with contrast. Exam focused on the arteries. 3D rendering (Not supervised by radiologist): MIP and/or 3D reconstructed images were created by the technologist. Contrast material: OMNIPAQUE 350; Contrast volume: 100 ml; Contrast route: INTRAVENOUS (IV); COMPARISON: CT CHEST PE CTA 12/03/2021 12:40 PM FINDINGS: Pulmonary arteries: No evidence of pulmonary embolus to the segmental level. Aorta: No aneurysm of the aorta. No dissection of the aorta. Lungs: Subpleural interstitial densities consistent with chronic lung changes. Bibasilar atelectasis Pleural spaces: Unremarkable. No pneumothorax. No pleural effusion. Heart: Unremarkable. No cardiomegaly. No pericardial effusion. Lymph nodes: Unremarkable. No enlarged lymph nodes. Gallbladder and bile ducts: Gallstones in the gallbladder . Pancreas: Pancreatic atrophy Bones/joints: Unremarkable. No acute fracture. Soft tissues: Unremarkable. IMPRESSION: 1. No evidence of pulmonary embolus to the segmental level. 2. No aneurysm of the aorta. 3. No dissection of the aorta. 4. Gallstones in the gallbladder . Dictated and Authenticated by: Trice Dos Santos MD. Ordering:VANESSA Wren MD
== END 2023-09-28 14:37 | disposition home or self-care (01) ==
PROVIDERS: Emergency Provider Student in an Organized Health Care Education/Training Program; PCP Family Medicine
DX: R05.9 Cough, unspecified (principal); K80.20 Calculus of gallbladder without cholecystitis without obstruction; R16.1 Splenomegaly, not elsewhere classified; J84.10 Pulmonary fibrosis, unspecified; I12.9 Hypertensive chronic kidney disease with stage 1 through stage 4 chronic kidney disease, or unspecified chronic kidney disease; N18.30 Chronic kidney disease, stage 3 unspecified; Z79.82 Long term (current) use of aspirin
CPT/HCPCS: 36415; 71275; 80053; 87426; 99285; 71046; 83605; 85025; 85379; 99284; J3490

== ENCOUNTER 2023-10-06 12:24 | Inpatient (IN) | payer OTHER, MEDICARE, SELFPAY ==
[2023-10-06] VITALS (52 sets, daily range): BP systolic 109–168; BP diastolic 35–97; PULSE 52–88; RESP 16–29; TEMP 36.6–37.1; O2SAT 96–100
--- NOTE | 2023-10-06 12:26 | W.ED.GENAD ---
Discharge Plan Disposition Patient Disposition: Admit to [facility] Discharge Details Clinical Impression: Hematochezia, Acute hyperkalemia, JESUS (acute kidney injury), Elevated INR Primary Care Provider: Edgar Marie ED Provider: Edgar Williamson Home Meds and New Rx's Prescriptions: No Action losartan 50 MG tablet 100 mg PO DAILY aspirin 81 MG tablet,chewable 81 mg PO DAILY magnesium oxide 250 MG tablet 250 mg PO DAILY AM omeprazole 20 mg capsule,delayed release(DR/EC) 20 mg PO DAILY propranolol 60 mg capsule,extended release 24 hr 60 mg PO DAILY Spiriva Respimat 2.5 mcg/actuation mist 2 puff inhalation DAILY Calcium 600 + D(3) 600 mg calcium- 200 unit Capsule 1 cap PO DAILY albuterol sulfate [ProAir HFA] 8.5 GM HFA aerosol inhaler 2 puff Inhalation Q4H Qty: 0 0RF chlorthalidone 25 mg tablet 12.5 mg PO DAILY Patient Comments: Take 1/2 tablet by mouth once a day with losartan benzonatate 100 mg capsule 100 mg PO PRN amoxicillin-pot clavulanate 875-125 mg tablet 1 tab PO BID HPI General Date/Time Provider Initiated Documentation: 10/06/23 12:26. 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 No hematemesis and though the patient does have a history of esophageal varices I am not concerned for variceal bleed. Soft nontender abdomen no fevers so I am not concern for spontaneous bacterial peritonitis. No ongoing hematochezia in the ED so will defer CT angiogram at this point time as I do not feel that the patient would be a candidate for interventional radiology. No pain out of proportion to suggest necrotizing soft tissue infection. No obvious external hemorrhoids on exam. Patient is not anticoagulated to suggest need for reversal. Will send type and screen treat with 80 mg of pantoprazole keep patient n.p.o. provide 5 cc crystalloid bolus. Patient did have respiratory complaints last week but denies shortness of breath cough at this point and is not hypoxic so my suspicion is low for pneumonia. 1:15 PM CBC showing no leukocytosis. Mild normocytic anemia improved compared to prior. No thrombocytopenia. 1:34 PM Comprehensive metabolic panel showing mild hyponatremia with a serum sodium of 1.31. Patient does have hyperkalemia with a serum potassium of 5.7 for which patient will receive twelve-lead ECG. He does have a mildly elevated BUN and JESUS. Mild hyperglycemia but no anion gap normal bicarbonate??not consistent with DKA. Mildly elevated alkaline phosphatase. Normal magnesium. Will order 5 units of IV insulin along with 2 g of calcium. ECG showing sinus bradycardia at a rate of 55. Normal axis. Intervals within normal limits. Peaked T waves in V2 and V3. Mild upsloping ST segment elevation in leads aVL and aVF. Compared to prior dated last year, peaked T waves and mild ST segment elevations are new. 2:20 PM I spoke with Dr. Belle from general surgery. She said that she would be happy to consult on this patient but that she would not advise intervention at this point in time but rather serial H&H's. Given his JESUS and elevated BUN with hyperkalemia we will reach out to the hospitalist team with request for hospitalization. 2:27 PM I spoke with Dr. Giles who agreed graciously to accept the patient for hospitalization. I have ordered an INR and a COVID swab. 3:15 PM Supratherapeutic INR. Chronic conditions affecting the care of the patient: Cryptogenic cirrhosis History obtained from an outside historian: N/A [place] [facility] [place] of hemat[place]zia found to have small AVMs on colonoscopy and 2021. Medications: Pantoprazole Social determinants of health affecting disposition: N/A Management discussed with: General surgery and hospitalist Treatment/interventions considered: N/A Response to therapies provided: No recurrent hematochezia in the ED HPI This is an 83-year-old male with a history of cryptogenic cirrhosis portal hypertension and nonbleeding esophageal varices arriving to the emergency department in setting of bright red blood per rectum every 45 minutes with bowel movements. Patient reports that since last night he has been having bright red blood per rectum every 45 minutes while having bowel movements. He is not having any abdominal pain. He is not on a blood thinner. He denies routine tobacco, ethanol, and illicits. He reportedly was treated last week for pneumonia with amoxicillin clavulanic acid and Tessalon Perles. He denies chest pain dysuria and frequency. Exam General: Well-appearing in no acute distress speaking in complete sentences. Head: Normocephalic, atraumatic. Eye: Extraocular eye movements intact. No conjunctival injection. No scleral icterus. Ear, nose, mouth, throat: Grossly normal inspection. Normal voice, handling secretions normally. Neck: Trachea midline. Cardiovascular: Well-perfused distal extremities. Regular rate and rhythm Respiratory: Nonlabored respiration. Clear lungs bilaterally Gastrointestinal: Mildly distended. Soft. Nontender. No rebound. No guarding. Rectal: No melena nor gross blood. No obvious external hemorrhoids. Musculoskeletal: No edema. Moving all 4 extremities spontaneously. Skin: Normal for age and race, grossly normal temperature and turgor. No acute rash. Neurologic: Alert and appropriate, no apparent acute deficits. Psychiatric: Mood and manner are appropriate. Grooming and personal hygiene are appropriate. Related Data Home Medications Medication Instructions Recorded Confirmed aspirin 81 mg chewable tablet 81 mg PO DAILY 02/25/17 10/06/23 losartan 50 mg tablet 100 mg PO DAILY 02/25/17 10/06/23 magnesium oxide 250 mg PO DAILY AM 02/25/17 10/06/23 calcium carbonate 600 mg-vitamin 1 cap PO DAILY 09/03/18 10/06/23 D3 5 mcg (200 unit) capsule (Calcium 600 + D(3)) albuterol sulfate 90 mcg/actuation 2 puff inhalation Q4H ##0 02/13/19 10/06/23 aerosol inhaler (ProAir HFA) omeprazole 20 mg capsule,delayed 20 mg PO DAILY 05/31/21 10/06/23 release propranolol 60 mg capsule,24 60 mg PO DAILY 05/31/21 10/06/23 hr,extended release tiotropium bromide 2.5 2 puff inhalation DAILY 05/31/21 10/06/23 mcg/actuation mist for inhalation (Spiriva Respimat) amoxicillin 875 mg-potassium 1 tab PO BID 10/06/23 10/06/23 clavulanate 125 mg tablet benzonatate 100 mg capsule 100 mg PO PRN 10/06/23 10/06/23 chlorthalidone 25 mg tablet 12.5 mg PO DAILY 10/06/23 10/06/23 Previous Rx's Medication Instructions Recorded albuterol sulfate 90 mcg/actuation 2 puff inhalation Q4H ##0 02/13/19 aerosol inhaler (ProAir HFA) Allergies Allergy/AdvReac Type Severity Reaction Status Date / Time ATUL Inhibitors AdvReac cough Verified 10/06/23 12:29 General MANGO: 3 PFSH All Active Problems (Updated 10/06/23 @ 15:18 by Edgar Williamson MD) Elevated INR (Acute) Chronic blood loss anemia (Acute) Chronic radiation proctitis (Acute) Anal stricture (Acute) JESUS (acute kidney injury) (Acute) Acute hyperkalemia (Acute) Hematochezia (Acute) Cough (Acute) Urgency incontinence (Acute) Bladder cancer (Acute) Mixed hearing loss, 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) Bronchospasm (Acute) Community acquired pneumonia of both lungs (Acute) History of prostate cancer (Chronic) CKD (chronic kidney disease), stage III (Chronic) Thrombocytopenia (Chronic) Rales (Chronic) Listed as basilar rales in PCP chart 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 Father Cardiovascular disease Brother No problems noted. 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
[2023-10-06 12:56] LABS: Absolute Lymphocyte Count 0.61 10^3/uL (1.2-3.4); Absolute Monocyte Count 0.64 10^3/uL (0.1-0.8); Basophils % 0.1; HCT 34.4 % (40.0-50.0); Immature Grans % 0.7; Lymphocytes % 4.5; MCH 28.2 pg (27.0-33.0); MCV 88 fL (80-95); Monocytes % 4.7; Platelet Count 208 10^3/uL (130-400); RDW 16.8 % (11.8-14.1); WBC 13.65 10^3/uL (4.4-10.8)
[2023-10-06 13:00] LABS: Absolute Basophil Count 0.01 10^3/uL (0.0-0.2); Absolute Neutrophil Count 12.29 10^3/uL (1.2-6.7)
[2023-10-06] MEDS: Normal Saline 1,000 ML 500 ML IV (13:00)
[2023-10-06] MEDS: Pantoprazole 40 MG VIAL 80 MG IVP (13:00)
[2023-10-06 13:10] LABS: Diff Comment PLT Morph Reviewed; RBC Morphology Normal
[2023-10-06 13:18] LABS: ALT 59 U/L (16-63); AST 54 U/L (15-37); Albumin 2.1 g/dL (3.4-5.0); Alkaline Phosphatase 215 U/L (46-116); Anion Gap 5.7 mmol/L (3-11); BUN 52 mg/dL (7-18); Bilirubin, Total 0.6 mg/dL (0.2-1.0); CO2 22.3 mmol/L (21.0-32.0); CREATININE 1.9 mg/dL (0.70-1.30); Calcium 8.7 mg/dL (8.5-10.1); Chloride 103 mmol/L (98-107); Glucose 264 mg/dL (74-106); Magnesium 2.4 mg/dL (1.8-2.4); Potassium 5.7 mmol/L (3.5-5.1); Sodium 131 mmol/L (136-145); Total Protein 7.9 g/dL (6.4-8.2)
--- NOTE | 2023-10-06 13:30 | RT.EKG_ITS ---
APPROVED REPORT Exam: Resting ECG Reason for Exam: Hyperkalemia Patient Location: E HR:55 bpm ECG Measurements Heart Rate 55 AXIS UT 162 P 25 QRSd 90 QRS 26 QT 412 T 25 QTc 394 Conclusion Sinus bradycardia...rate< [address] elevation, anterior leads...ST >0.15mV in V1-V4 ECG showing sinus bradycardia at a rate of 55. Normal axis. Intervals within normal limits. Peaked T waves in V2 and V3. Mild upsloping ST segment elevation in leads aVL and aVF. Compared to prior d ated last year, peaked T waves and mild ST segment elevations are new.
[2023-10-06] MEDS: Calcium Gluconate 4.65 MEQ/10 ML VIAL 9.3 MG IVP (14:00)
[2023-10-06] MEDS: Insulin REGULAR-Human 100 UNITS/ML UNIT IV ×2 (14:00→18:26)
[2023-10-06 14:52] LABS: Prothrombin Time 14.1 sec (9.1-11.1)
[2023-10-06 14:54] LABS: INR 1.4 (0.9-1.1)
--- NOTE | 2023-10-06 14:56 | SCONE_ITS ---
Date of service: 10/06/23 Time of Service: 14:56 Assessment and Plan Assessment and plan (1) JESUS (acute kidney injury): Status: Resolved (2) Acute hyperkalemia: Status: Deleted (3) Bladder cancer: Status: Acute Assessment and plan: - Patient is seen and followed by Dr. Saxena. Patient is adamant that this was not hematuria (4) Anal stricture: Status: Acute Assessment and plan: -Noted on clinical exam today (5) Chronic radiation proctitis: Status: Chronic Assessment and plan: Patient has a known history of cirrhosis and is followed by GI at [facility]. They think it is probably due to Brown. Although he did have an extensive history of alcohol usage in his younger years. But nothing at this point. He has high-grade stenosis per [facility]Scan. Please see his hepatology note from 04/28/2023 that was scanned into [facility]. He had a colonoscopy at [facility] in 01/08 This did show anal stricture Angioectasia in the distal rectum consistent with radiation chronic radiation proctitis also internal hemorrhoids He had an EGD at [facility] 01/08 which was significant for: Grade 1 esophageal varices/portal gastropathy -He did have an ultrasound and labs done at [facility] including the AFP which was negative -His hemoglobin at the time of this visit was 8.5. This is felt to be due to chronic blood loss from the radiation proctitis and hematuria and CKD. [facility] did not recommend any further endoscopy unless he has bleeding. Valentine class a They recommended he continue on propranolol 80 mg daily. They did not recommend any surveillance for varices as they feel this is a low probability. He has had varices banded in the past. He recommended to abstain from alcohol and continue on a Mediterranean diet He will follow-up in 6 months time in clinic and will have ultrasound and labs prior. We will start steroid suppositories. If he continues to have significant bleeding consider flex sig with cauterization. This document was created with voice activated software and may contain errors. 90 mins spent with the patient today. (6) Esophageal varices: (7) Cirrhosis of liver: (8) Chronic blood loss anemia: Status: Chronic (9) CKD (chronic kidney disease), stage III: Status: Chronic (10) Restrictive lung disease: Status: Chronic (11) Hypertension: Status: Chronic (12) Urgency incontinence: Status: Acute (13) Hematochezia: Status: Acute (14) Acute blood loss anemia: History of Present Illness Narrative: Patient is a 83-year-old male who presented to the ER with complaints of bright red blood per rectum. He has a history of radiation proctitis from prostate cancer. He follows up with GI and had a colonoscopy in 05/09 that showed a stricture and chronic changes from radiation proctitis. He also has a chronic history of pretty significant cirrhosis due to Brown. He has cirrhotic liver/splenomegaly/portal hypertension and esophageal varices. He has had varices banded several times and has portal gastropathy. He also has a history of stage III CKD which does contribute as well to his anemia. He also has a history of bladder cancer for which Hemanth manages and has been doing TURBT. This also has been contributing to his anemia. He is not on any blood thinners. He is on omeprazole daily. He does not take a large amount of NSAIDs. He has chronic pancytopenia. He does not smoke or drink alcohol currently. He denies any trauma. He denies any constipation/stools were actually mult and diarrhea. He denies any abdominal pain. he denies any n/v. He is not having any rectal pain. he denies any unusual foods. no one else at home is ill. no travel. no recent abx. Charts from reviewed Review of Systems All systems reviewed & are unremarkable except as noted in HPI and below PFSH All Active Problems (Updated 10/11/23 @ 00:01 by MANDI NAIR) BROWN (nonalcoholic steatohepatitis) (Chronic) Radiation proctitis (Chronic) Coagulopathy (Chronic) Elevated INR (Acute) Chronic blood loss anemia (Chronic) Chronic radiation proctitis (Chronic) Anal stricture (Acute) Hematochezia (Acute) Cough (Acute) Urgency incontinence (Acute) Bladder cancer (Acute) Mixed hearing loss, bilateral (Acute) History of prostate cancer (Chronic) CKD (chronic kidney disease), stage III (Chronic) Thrombocytopenia (Chronic) Restrictive lung disease (Chronic) 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 Father Cardiovascular disease Brother No problems noted. Social History Smoking/Tobacco Use Status: Never Smoking risk assessment performed?: Yes Alcohol Intake: former Year quit: 1994 Drug use: Never Substance use type: does not use Housing: house current occupation: [employer] - [employer] Do you feel safe at home: Yes Do you feel safe in your relationship?: Yes Exam Const General: cooperative, healthy appearing, comfortable and no acute distress Nutritional Appearance: average body habitus HENMT Other: no jaundice poor dentition Resp Effort & Inspection: normal respiratory effort and able to speak in complete sentences Auscultation: clear to auscultation bilaterally Cardio Rate: regular rate Rhythm: regular rhythm GI Inspection: non-distended Palpation: soft, no hernias, no masses and No ascites Auscultation: normal bowel sounds Rectal Exam: prostate normal (Atrophic secondary to radiation) Other: DOMINIQUE:Stricturing appreciated Gross brown stool in the vault. Anoscopy: Grade 2 internal hemorrhoids Fissure at the 6 o'clock position Angioectasia noted in the rectum with contact bleeding. Bright red blood and minimal bleeding Results Last Vital Signs Temp 36.6 C 10/06/23 12:27 Pulse 58 L 10/06/23 13:30 Resp 20 10/06/23 13:30 BP 132/35 L 10/06/23 13:30 Pulse Ox 98 10/06/23 13:30 Labs 10/10/23 05:40 10/10/23 05:40 Labs: Laboratory Results - last 24 hr 10/06/23 10/06/23 12:40 14:36 WBC 13.65 H RBC 3.90 L Hgb 11.0 L Hct 34.4 L MCV 88 MCH 28.2 MCHC 32.0 RDW 16.8 H Plt Count 208 MPV Immature Gran % 0.7 Neutrophils % 90.0 Lymphocytes % 4.5 Monocytes % 4.7 Eosinophils % 0.0 Basophils % 0.1 Nucleated RBC % 0.0 Absolute Neutrophils 12.29 H Absolute Lymphocytes 0.61 L Absolute Monocytes 0.64 Absolute Eosinophils 0.00 Absolute Basophils 0.01 RBC Morphology Normal PT 14.1 H INR 1.4 H Sodium 131 L Potassium 5.7 H Chloride 103 Carbon Dioxide 22.3 Anion Gap 5.7 BUN 52 H Creatinine 1.9 H Est GFR (CKD-EPI 2020) 35.00 Glucose 264 H Calcium 8.7 Magnesium 2.4 Total Bilirubin 0.6 AST 54 H ALT 59 Alkaline Phosphatase 215 H Total Protein 7.9 Albumin 2.1 L Patient ABO/Rh O Positive Antibody Screen NEGATIVE
[2023-10-06 14:57] LABS: Source Nasal/Nares
[2023-10-06 15:31] LABS: COVID-19 PCR Negative (Negative)
[2023-10-06 16:17] LABS: Lab Add On Test DONE
--- NOTE | 2023-10-06 16:29 | W.PM.HP.N ---
Date of service: 10/06/23 Time of Service: 16:29 Assessment and Plan Assessment and plan (1) JESUS (acute kidney injury): Status: Acute Assessment and plan: With hyperkalemia, In setting of GI bleeding, augmentin therapy, diuretic and ARB therapy at home. Hydrate. Recheck chemistry. HOld diuretics and ARB. Hold augmentin. (2) Acute hyperkalemia: Status: Acute Assessment and plan: As above May be able to transfer out of the ICU. (3) Bright red blood per rectum: Status: Acute Assessment and plan: Acute on chronic rectal bleeding due to anal stricture/radiation proctitis. Discussed with Dr Belle: will trial steroid suppositories. (4) Coagulopathy: Status: Acute Assessment and plan: in setting of known SPENCER. May be contributing to GI bleeding. Monitor INR. (5) Radiation proctitis: Status: Chronic Assessment and plan: As above (6) Leucocytosis: Status: Acute Assessment and plan: Recently started on augmentin, a 5 day course of 2 pills, and two other medications by PCP for what sounds like bronchitis. We will get PCP and pharmacy records. I suspect one of the medications was prednisone, which could explain the leucocytosis. I am not inclined to restart the antibiotics at this time unless procalcitonin is elevated. (7) DVT prophylaxis: Status: Acute Assessment and plan: SCDS. Avoid chemical DVT ppx in setting of GI bleeding. (8) Discharge planning issues: Status: Acute Assessment and plan: Full code Admitted to the ICU but can likely be downgraded to medsurg with tele if K is better and H/H is drastically lower. 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 The bleeding actually started yesterday morning, then stopped, then started again at 3 am. His potassium was 5.7, Cr 1.9 (baseline 1.5), Hgb was 11 (baseline around 8). His INR is 1.4. He did have evidence of peaked T waves on EKG in the ED, so he received insulin and calcium. The case was discussed with Dr Belle who had recommended serial H/H's. I also spoke with Dr Belle: the bleeding is most likely due to the anal stenosis and radiation proctitis, and we decided to try steroid suppositories. Additionally, the patient was started on augmentin by the PCP after a visit to the ED for a cough. He tells me that he had not been taking any of his old medications until last Friday when he resumed some of them. He is not very clear as to which medications he takes. Review of Systems All systems reviewed & are unremarkable except as noted in HPI and below PFSH All Active Problems (Updated 10/06/23 @ 17:12 by Nicol Giles MD) Discharge planning issues (Acute) DVT prophylaxis (Acute) Leucocytosis (Acute) Radiation proctitis (Chronic) Coagulopathy (Acute) Bright red blood per rectum (Acute) Elevated INR (Acute) Chronic blood loss anemia (Acute) Chronic radiation proctitis (Acute) Anal stricture (Acute) JESUS (acute kidney injury) (Acute) Acute hyperkalemia (Acute) Hematochezia (Acute) Cough (Acute) Urgency incontinence (Acute) Bladder cancer (Acute) Mixed hearing loss, 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) Bronchospasm (Acute) Community acquired pneumonia of both lungs (Acute) History of prostate cancer (Chronic) CKD (chronic kidney disease), stage III (Chronic) Thrombocytopenia (Chronic) Rales (Chronic) Listed as basilar rales in PCP chart 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 Father Cardiovascular disease Brother No problems noted. 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 Do you feel safe at home: Yes Do you feel safe in your relationship?: Yes Meds Allergies and Home Medications Allergies Allergy/AdvReac Type Severity Reaction Status Date / Time ATUL Inhibitors AdvReac cough Verified 10/06/23 12:29 Home Medications Medication Instructions Recorded Confirmed Type aspirin 81 mg chewable tablet 81 mg PO DAILY 02/25/17 10/06/23 History losartan 50 mg tablet 100 mg PO DAILY 02/25/17 10/06/23 History magnesium oxide 250 mg PO DAILY AM 02/25/17 10/06/23 History calcium carbonate 600 mg-vitamin 1 cap PO DAILY 09/03/18 10/06/23 History D3 5 mcg (200 unit) capsule (Calcium 600 + D(3)) albuterol sulfate 90 mcg/actuation 2 puff inhalation Q4H ##0 02/13/19 10/06/23 Rx aerosol inhaler (ProAir HFA) omeprazole 20 mg capsule,delayed 20 mg PO DAILY 05/31/21 10/06/23 History release propranolol 60 mg capsule,24 60 mg PO DAILY 05/31/21 10/06/23 History hr,extended release tiotropium bromide 2.5 2 puff inhalation DAILY 05/31/21 10/06/23 History mcg/actuation mist for inhalation (Spiriva Respimat) amoxicillin 875 mg-potassium 1 tab PO BID 10/06/23 10/06/23 History clavulanate 125 mg tablet benzonatate 100 mg capsule 100 mg PO PRN 10/06/23 10/06/23 History chlorthalidone 25 mg tablet 12.5 mg PO DAILY 10/06/23 10/06/23 History Exam Narrative Exam Narrative: General: Pleasant elderly male who is A&Ox3, NAD, comfortable in bed Neurological: A&Ox3, no focal deficits Psychiatric: Appropriate speech pattern/content Skin: Visible skin intact HEENT: Atraumatic, normocephalic, EOMI, dry MM, clear oropharynx, no submandibular or cervical lymphadenopathy, no goiter or JVD Cardiovascular: RRR, no m/r/g Lungs: CTAB Gastrointestinal: soft, nontender, nondistended Genitourinary: deferred Extremities: no edema BLEs, 1+ pedal pulses B, no clubbing/cyanosis Results Imaging Additional studies: EKG: Sinus bradycardia, HR 55, peaked T waves, borderline ST elevations in anterior leads. Labs 10/06/23 12:40 10/06/23 12:40 Labs: Laboratory Results - last 24 hr 10/06/23 10/06/23 10/06/23 12:40 14:20 14:36 WBC 13.65 H RBC 3.90 L Hgb 11.0 L Hct 34.4 L MCV 88 MCH 28.2 MCHC 32.0 RDW 16.8 H Plt Count 208 MPV Immature Gran % 0.7 Neutrophils % 90.0 Lymphocytes % 4.5 Monocytes % 4.7 Eosinophils % 0.0 Basophils % 0.1 Nucleated RBC % 0.0 Absolute Neutrophils 12.29 H Absolute Lymphocytes 0.61 L Absolute Monocytes 0.64 Absolute Eosinophils 0.00 Absolute Basophils 0.01 RBC Morphology Normal PT 14.1 H INR 1.4 H Sodium 131 L Potassium 5.7 H Chloride 103 Carbon Dioxide 22.3 Anion Gap 5.7 BUN 52 H Creatinine 1.9 H Est GFR (CKD-EPI 2020) 35.00 Glucose 264 H Calcium 8.7 Magnesium 2.4 Total Bilirubin 0.6 AST 54 H ALT 59 Alkaline Phosphatase 215 H Total Protein 7.9 Albumin 2.1 L COVID-19 Source Nasal/Nares SARS-CoV-2 (PCR) Negative Add-On Test Request DONE Patient ABO/Rh O Positive Antibody Screen NEGATIVE Last Vital Signs Temp 36.6 C 10/06/23 12:27 Pulse 62 10/06/23 15:46 Resp 23 10/06/23 15:50 BP 122/45 L 10/06/23 15:46 Pulse Ox 97 10/06/23 13:30 Time Spent Time spent with Patient: 40-54 minutes Time was spent: preparing to see the patient(eg.review tests), obtaining and/or reviewing separately otained hiistory, ordering medications,tests, procedures, referring, communicating with other health respiratory care instructor, indepentently interpreting results, counseling the patient and care coordination
[2023-10-06 16:42] LABS: Ferritin 65 ng/mL (26-388)
[2023-10-06 17:22] LABS: HCT 32.1 % (40.0-50.0); HGB 10.3 g/dL (13.5-17.5)
[2023-10-06] MEDS: Normal Saline 500 ML IV (17:30)
[2023-10-06 17:35] LABS: Lab Add On Test DONE
[2023-10-06] MEDS: Albuterol HFA 8 GM 60 PUFF INH IH (17:36)
[2023-10-06 17:44] LABS: Anion Gap 5.2 mmol/L (3-11); BUN 47 mg/dL (7-18); CO2 21.8 mmol/L (21.0-32.0); CREATININE 1.7 mg/dL (0.70-1.30); Calcium 8.8 mg/dL (8.5-10.1); Chloride 108 mmol/L (98-107); Glucose 126 mg/dL (74-106); Sodium 135 mmol/L (136-145); Troponin I < 50 ng/L (<or=60)
--- NOTE | 2023-10-06 17:45 | RT.EKG_ITS ---
APPROVED REPORT Exam: Resting ECG Reason for Exam: hyperkalemia Patient Location: I HR:57 bpm ECG Measurements Heart Rate 57 AXIS SD 171 P 38 QRSd 87 QRS 26 QT 388 T 23 QTc 378 Conclusion Sinus rhythm...normal P axis, V-rate 50- 99 Normal Electrocardiogram
[2023-10-06] MEDS: Lactated Ringers 1,000 ML 100 ML IV (18:10)
[2023-10-06 18:21] LABS: Procalcitonin < 0.1 ng/mL
[2023-10-06] MEDS: Calcium Gluconate 4.65 MEQ/10 ML VIAL 4.65 MG IVP (18:25)
[2023-10-06] MEDS: Sodium Zirconium Cyclosilicate 10 GM PKT PO ×2 (18:25→22:07)
[2023-10-06] MEDS: Dextrose 50%-Water 25 GM/50 ML SYR IVP (18:27)
[2023-10-06] MEDS: Normal Saline Flush 10 ML SYR IVP ×2 (20:09→23:28)
[2023-10-06 21:53] LABS: Anion Gap 4.9 mmol/L (3-11); BUN 43 mg/dL (7-18); CO2 21.1 mmol/L (21.0-32.0); CREATININE 1.6 mg/dL (0.70-1.30); Calcium 8.9 mg/dL (8.5-10.1); Chloride 109 mmol/L (98-107); Estimated GFR 43.02 (mL/min/1.73m2); Glucose 107 mg/dL (74-106); Potassium 5.8 mmol/L (3.5-5.1); Sodium 135 mmol/L (136-145)
[2023-10-06] MEDS: Hydrocortisone 25 MG SUPP PR (22:08)
[2023-10-06] MEDS: Furosemide 20 MG/2 ML VIAL IVP (23:23)
[2023-10-06] MEDS: DEXTROSE 5%-0.9% SALINE 1,000 ML 100 ML IV (23:26)
[2023-10-07] VITALS (101 sets, daily range): BP systolic 99–152; BP diastolic 44–82; PULSE 50–71; RESP 14–32; TEMP 36.4–37.2; O2SAT 94–100
[2023-10-07 00:48] LABS: Anion Gap 4.8 mmol/L (3-11); BUN 41 mg/dL (7-18); CO2 22.2 mmol/L (21.0-32.0); CREATININE 1.7 mg/dL (0.70-1.30); Chloride 108 mmol/L (98-107); Glucose 129 mg/dL (74-106); Potassium 5.4 mmol/L (3.5-5.1); Sodium 135 mmol/L (136-145)
[2023-10-07] MEDS: Sodium Zirconium Cyclosilicate 10 GM PKT PO ×4 (05:43→22:34)
[2023-10-07 07:35] LABS: Abs Immature Grans 0.03 10^3/uL (0.0-0.06); Absolute Basophil Count 0.01 10^3/uL (0.0-0.2); Absolute Eosinophil Count 0.06 10^3/uL (0.0-0.7); Absolute Lymphocyte Count 1.12 10^3/uL (1.2-3.4); Absolute Monocyte Count 0.69 10^3/uL (0.1-0.8); Absolute Neutrophil Count 7.25 10^3/uL (1.2-6.7); Basophils % 0.1; Eosinophils % 0.7; HCT 28.7 % (40.0-50.0); HGB 9.2 g/dL (13.5-17.5); Immature Grans % 0.3; Lymphocytes % 12.2; MCH 28.3 pg (27.0-33.0); MCHC 32.1 % (32.0-36.0); MCV 88 fL (80-95); MPV 12.7 fL (8.0-11.0); Monocytes % 7.5; Neutrophils % 79.2; Platelet Count 110 10^3/uL (130-400); RBC 3.25 10^6/uL (4.36-5.78); RDW 16.7 % (11.8-14.1); RDW-SD 53.7 fL; WBC 9.16 10^3/uL (4.4-10.8)
[2023-10-07 07:45] LABS: Anion Gap 5.2 mmol/L (3-11); BUN 40 mg/dL (7-18); CO2 23.8 mmol/L (21.0-32.0); CREATININE 1.6 mg/dL (0.70-1.30); Calcium 8.8 mg/dL (8.5-10.1); Chloride 108 mmol/L (98-107); Estimated GFR 43.02 (mL/min/1.73m2); Glucose 129 mg/dL (74-106); Magnesium 2.1 mg/dL (1.8-2.4); Potassium 4.7 mmol/L (3.5-5.1); Sodium 137 mmol/L (136-145)
[2023-10-07 08:00] LABS: INR 1.4 (0.9-1.1); Prothrombin Time 13.7 sec (9.1-11.1)
--- NOTE | 2023-10-07 08:09 | INITIAL_ITS ---
Date of service: 10/07/23 Time of Service: 08:09 Care Management Initial Assmt Initial Assessment REASON FOR HOSPITALIZATION:: Bright red blood per rectum, JESUS with hyperkalemia PREVIOUS FUNCTIONAL STATUS/SOCIAL/FAMILY SUPPORTS:: Marleny lives alone in a mobile home in [facility] [facility]. He has 3 step daughters but does not see them often. 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 Marleny is independent at baseline and does not receive any community services. CURRENT FUNCTIONAL STATUS:: Sitting in chair, playing on his phone. ADVANCE DIRECTIVES:: none on file Has patient been provided with info about the portal/API?: Yes Did the patient sign up for the portal?: No CODE STATUS:: Full Code INSURANCE COVERAGE / FINANCIAL ISSUES:: [facility] CURRENT HOME/COMMUNITY SERVICES/EQUIPMENT:: None PRIMARY CARE PHYSICIAN:: Edgar Marie POTENTIAL DISCHARGE NEEDS:: Follow up appointments. PATIENT/FAMILY EDUCATION NEEDS:: Review of discharge instructions, limitations, activity, follow up plan, Ask Me Three ANTICIPATED BARRIERS TO DISCHARGE:: None identified. TRANSPORTATION:: Private vehicle; friends or family PLAN:: Anticipate Marleny will return home when ready per MD, he will follow up with his PCP and Urology as well as his plan of care as prescribed. CM continues to follow. PFSH All Active Problems Discharge planning issues (Acute) DVT prophylaxis (Acute) Leucocytosis (Acute) Radiation proctitis (Chronic) Coagulopathy (Acute) Bright red blood per rectum (Acute) Elevated INR (Acute) Chronic blood loss anemia (Acute) Chronic radiation proctitis (Acute) Anal stricture (Acute) JESUS (acute kidney injury) (Acute) Acute hyperkalemia (Acute) Hematochezia (Acute) Cough (Acute) Urgency incontinence (Acute) Bladder cancer (Acute) Mixed hearing loss, 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) Bronchospasm (Acute) Community acquired pneumonia of both lungs (Acute) History of prostate cancer (Chronic) CKD (chronic kidney disease), stage III (Chronic) Thrombocytopenia (Chronic) Rales (Chronic) Listed as basilar rales in PCP chart Restrictive lung disease (Chronic) Listed as 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 with previous employment ([employer]) PFT impression from August 24, 2018 showed mild restrictive lung disease Hypertension (Chronic) Medical History Fever Acute blood loss anemia Acute urinary retention Hematuria Esophageal varices Carpal tunnel syndrome Cirrhosis of liver Other otosclerosis, bilateral Internal hemorrhoid Gross hematuria Prostate cancer Right carpal tunnel syndrome Surgical History S/P endoscopic carpal tunnel release (09/09/18) Family History Mother No problems noted. Father Cardiovascular disease Brother No problems noted. Social History Smoking/Tobacco Use Status: Never Smoking risk assessment performed?: Yes Alcohol Intake: former Year quit: 1994 Drug use: Never Substance use type: does not use Housing: house current occupation: [employer] - [employer] Do you feel safe at home: Yes Do you feel safe in your relationship?: Yes
[2023-10-07] MEDS: Tiotropium Bromide-Respimat 10 PUFF INH 2 PUFF IH (08:10)
[2023-10-07] MEDS: Acetaminophen 325 MG TAB PO (08:36)
[2023-10-07] MEDS: Omeprazole 20 MG CAPCR PO (08:36)
[2023-10-07] MEDS: Calcium 600mg/Vit D 200U TAB 1 TAB PO (08:36)
[2023-10-07] MEDS: Propranolol 60 MG CAPCR PO (08:37)
[2023-10-07] MEDS: Aspirin 81 MG CHEW PO (08:37)
[2023-10-07] MEDS: Hydrocortisone 25 MG SUPP PR ×2 (08:37→21:06)
--- NOTE | 2023-10-07 10:32 | CHAPLAIN ---
Marleny was up the chair playing a game on this phone when I visited. 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 He's been in touch with one of his stepdaughters who will notify the others that he is here. Marleny said he also has a friend who checks in on him. He's waiting for more test results to determine what's going on, and maybe having more tests. He hasn't eaten in over 24 hours, so he's looking forward to that.
--- NOTE | 2023-10-07 12:51 | W.PM.PROGNOT ---
Date of Service Date of service: 10/07/23 Time of Service: 12:51 Assessment and Plan Assessment and plan (1) JESUS (acute kidney injury): Status: Acute (2) Acute hyperkalemia: Status: Acute (3) Bladder cancer: Status: Acute Assessment and plan: - Patient is seen and followed by Dr. Saxena. Patient is adamant that this was not hematuria (4) Anal stricture: Status: Acute Assessment and plan: -Noted on clinical exam today (5) Chronic radiation proctitis: Status: Acute Assessment and plan: No BM or rectal bleeding since admission per patient. Patient reports feeling well this morning. Continue with steroid suppositories. If he continues to have significant bleeding consider flex sig with cauterization. (6) Esophageal varices: (7) Cirrhosis of liver: (8) Chronic blood loss anemia: Status: Acute (9) CKD (chronic kidney disease), stage III: Status: Chronic (10) Restrictive lung disease: Status: Chronic (11) Hypertension: Status: Chronic (12) Urgency incontinence: Status: Acute (13) Hematochezia: Status: Acute Subjective Subjective Interval history since last seen: Patient reports he is feeling well. Denies any abdominal pain, nausea or vomiting. He states that he has not had a BM since arrival. Exam Const General: cooperative, healthy appearing and comfortable Orientation: alert and oriented x3 GI Inspection: normal to inspection and obesity Palpation: soft, no guarding and nontender Objective Last Vital Signs Temp 37.2 C 10/07/23 08:30 Pulse 55 L 10/07/23 11:25 Resp 18 10/07/23 11:25 BP 99/51 L 10/07/23 11:25 Pulse Ox 97 10/07/23 11:01 Laboratory Results - last 24 hr 10/06/23 10/06/23 10/06/23 12:40 14:20 14:36 WBC 13.65 H RBC 3.90 L Hgb 11.0 L Hct 34.4 L MCV 88 MCH 28.2 MCHC 32.0 RDW 16.8 H Plt Count 208 MPV Immature Gran % 0.7 Neutrophils % 90.0 Lymphocytes % 4.5 Monocytes % 4.7 Eosinophils % 0.0 Basophils % 0.1 Nucleated RBC % 0.0 Absolute Neutrophils 12.29 H Absolute Lymphocytes 0.61 L Absolute Monocytes 0.64 Absolute Eosinophils 0.00 Absolute Basophils 0.01 RBC Morphology Normal PT 14.1 H INR 1.4 H Sodium 131 L Potassium 5.7 H Chloride 103 Carbon Dioxide 22.3 Anion Gap 5.7 BUN 52 H Creatinine 1.9 H Est GFR (CKD-EPI 2020) 35.00 Glucose 264 H Calcium 8.7 Magnesium 2.4 Ferritin 65 Total Bilirubin 0.6 AST 54 H ALT 59 Alkaline Phosphatase 215 H Troponin I Total Protein 7.9 Albumin 2.1 L Procalcitonin COVID-19 Source Nasal/Nares SARS-CoV-2 (PCR) Negative Add-On Test Request DONE Patient ABO/Rh O Positive Antibody Screen NEGATIVE 10/06/23 10/06/23 10/06/23 16:44 17:10 17:34 WBC RBC Hgb 10.3 L Hct 32.1 L MCV MCH MCHC RDW Plt Count MPV Immature Gran % Neutrophils % Lymphocytes % Monocytes % Eosinophils % Basophils % Nucleated RBC % Absolute Neutrophils Absolute Lymphocytes Absolute Monocytes Absolute Eosinophils Absolute Basophils RBC Morphology PT INR Sodium 135 L Potassium Cancelled 6.0 H Chloride 108 H Carbon Dioxide 21.8 Anion Gap 5.2 BUN 47 H Creatinine 1.7 H Est GFR (CKD-EPI 2020) 40.00 Glucose 126 H Calcium 8.8 Magnesium Ferritin Total Bilirubin AST ALT Alkaline Phosphatase Troponin I < 50 Total Protein Albumin Procalcitonin < 0.1 COVID-19 Source SARS-CoV-2 (PCR) Add-On Test Request DONE Patient ABO/Rh Antibody Screen 10/06/23 10/06/23 10/07/23 18:00 21:00 00:33 WBC RBC Hgb Cancelled Hct Cancelled MCV MCH MCHC RDW Plt Count MPV Immature Gran % Neutrophils % Lymphocytes % Monocytes % Eosinophils % Basophils % Nucleated RBC % Absolute Neutrophils Absolute Lymphocytes Absolute Monocytes Absolute Eosinophils Absolute Basophils RBC Morphology PT INR Sodium Cancelled 135 L 135 L Potassium Cancelled 5.8 H 5.4 H Chloride Cancelled 109 H 108 H Carbon Dioxide Cancelled 21.1 22.2 Anion Gap Cancelled 4.9 4.8 BUN Cancelled 43 H 41 H Creatinine Cancelled 1.6 H 1.7 H Est GFR (CKD-EPI 2020) Cancelled 43.02 40.00 Glucose Cancelled 107 H 129 H Calcium Cancelled 8.9 9.0 Magnesium Ferritin Total Bilirubin AST ALT Alkaline Phosphatase Troponin I Total Protein Albumin Procalcitonin COVID-19 Source SARS-CoV-2 (PCR) Add-On Test Request Patient ABO/Rh Antibody Screen 10/07/23 06:05 WBC 9.16 RBC 3.25 L Hgb 9.2 L Hct 28.7 L MCV 88 MCH 28.3 MCHC 32.1 RDW 16.7 H Plt Count 110 L MPV 12.7 H Immature Gran % 0.3 Neutrophils % 79.2 Lymphocytes % 12.2 Monocytes % 7.5 Eosinophils % 0.7 Basophils % 0.1 Nucleated RBC % 0.0 Absolute Neutrophils 7.25 H Absolute Lymphocytes 1.12 L Absolute Monocytes 0.69 Absolute Eosinophils 0.06 Absolute Basophils 0.01 RBC Morphology PT 13.7 H INR 1.4 H Sodium 137 Potassium 4.7 Chloride 108 H Carbon Dioxide 23.8 Anion Gap 5.2 BUN 40 H Creatinine 1.6 H Est GFR (CKD-EPI 2020) 43.02 Glucose 129 H Calcium 8.8 Magnesium 2.1 Ferritin Total Bilirubin AST ALT Alkaline Phosphatase Troponin I Total Protein Albumin Procalcitonin COVID-19 Source SARS-CoV-2 (PCR) Add-On Test Request Patient ABO/Rh Antibody Screen Time Spent with Patient Time Spent with Patient: <25 minutes Time was spent: preparing to see the patient(eg.review tests), obtaining and/or reviewing separately otained hiistory and counseling the patient
[2023-10-07 14:31] LABS: Anion Gap 6.7 mmol/L (3-11); BUN 39 mg/dL (7-18); CO2 24.3 mmol/L (21.0-32.0); CREATININE 1.8 mg/dL (0.70-1.30); Calcium 8.7 mg/dL (8.5-10.1); Chloride 105 mmol/L (98-107); Estimated GFR 37.35 (mL/min/1.73m2); Glucose 211 mg/dL (74-106); Potassium 4.8 mmol/L (3.5-5.1); Sodium 136 mmol/L (136-145)
--- NOTE | 2023-10-07 18:53 | PGE_ITS ---
Date of Service Date of service: 10/07/23 Time of Service: 17:00 Assessment and Plan Assessment and plan (1) JESUS (acute kidney injury): Status: Acute Assessment and plan: With hyperkalemia, now resolved. In setting of GI bleeding, augmentin therapy, diuretic and ARB therapy at home. I have d/c'ed IVF as the patient is near baseline as far as Cr goes, after I spoke with Dr Marie, and is able to eat and drink. Continue to hold diuretics and ARB. Hold augmentin. (2) Acute hyperkalemia: Status: Resolved Assessment and plan: This got worse last night, but then is much better this morning. Continue a renal diet and lokelma for tonight. (3) Bright red blood per rectum: Status: Acute Assessment and plan: Acute on chronic rectal bleeding due to anal stricture/radiation proctitis. Discussed with Dr Belle: Continue steroid suppositories. (4) Coagulopathy: Status: Acute Assessment and plan: in setting of known SPENCER. May be contributing to GI bleeding. Monitor INR. (5) Radiation proctitis: Status: Chronic Assessment and plan: As above (6) Leucocytosis: Status: Acute Assessment and plan: Suspect this was induced by steroids for bronchitis as outpatient. WBC normalized today. No indication for abx at this time. Procalcitonin normal. (7) DVT prophylaxis: Status: Acute Assessment and plan: SCDS. Avoid chemical DVT ppx in setting of GI bleeding. (8) Discharge planning issues: Status: Acute Assessment and plan: Full code Transferred to the medical surgical floor. Subjective Subjective Interval history since last seen: No dizziness, CP, SOB, n/v. Did have another bloody bowel movement this afternoon. Tolerated a diet. Mr Martin is interested in knowing how to prevent hyperkalemia from happening again. I did discuss with him how I need to see exactly what he was taking at home to make sure the medications did not contribute to this. We did clarify that it was not 3 weeks ago that he was at the hospital and discharged from here but a week ago, and it was the ED visit. He would have only been off of his medications for a few days, and he was still taking some of them, but he cannot tell me which except magnesium. He is asking his neighbor to bring in his medications for us to review. Exam Narrative Exam Narrative: General: Pleasant elderly male who is A&Ox3, NAD, sitting up in a chair HEENT: EOMI, MMM Cardiovascular: RRR, no m/r/g Lungs: crackles at B bases Gastrointestinal: soft, nontender, nondistended Extremities: no edema BLEs, 1+ pedal pulses B, no clubbing/cyanosis Objective Last Vital Signs Temp 37.2 C 10/07/23 08:30 Pulse 55 L 10/07/23 11:25 Resp 18 10/07/23 11:25 BP 99/51 L 10/07/23 11:25 Pulse Ox 97 10/07/23 11:01 Laboratory Results - last 24 hr 10/06/23 10/07/23 10/07/23 21:00 00:33 06:05 WBC 9.16 RBC 3.25 L Hgb 9.2 L Hct 28.7 L MCV 88 MCH 28.3 MCHC 32.1 RDW 16.7 H Plt Count 110 L MPV 12.7 H Immature Gran % 0.3 Neutrophils % 79.2 Lymphocytes % 12.2 Monocytes % 7.5 Eosinophils % 0.7 Basophils % 0.1 Nucleated RBC % 0.0 Absolute Neutrophils 7.25 H Absolute Lymphocytes 1.12 L Absolute Monocytes 0.69 Absolute Eosinophils 0.06 Absolute Basophils 0.01 PT 13.7 H INR 1.4 H Sodium 135 L 135 L 137 Potassium 5.8 H 5.4 H 4.7 Chloride 109 H 108 H 108 H Carbon Dioxide 21.1 22.2 23.8 Anion Gap 4.9 4.8 5.2 BUN 43 H 41 H 40 H Creatinine 1.6 H 1.7 H 1.6 H Est GFR (CKD-EPI 2020) 43.02 40.00 43.02 Glucose 107 H 129 H 129 H Calcium 8.9 9.0 8.8 Magnesium 2.1 10/07/23 14:08 WBC RBC Hgb Hct MCV MCH MCHC RDW Plt Count MPV Immature Gran % Neutrophils % Lymphocytes % Monocytes % Eosinophils % Basophils % Nucleated RBC % Absolute Neutrophils Absolute Lymphocytes Absolute Monocytes Absolute Eosinophils Absolute Basophils PT INR Sodium 136 Potassium 4.8 Chloride 105 Carbon Dioxide 24.3 Anion Gap 6.7 BUN 39 H Creatinine 1.8 H Est GFR (CKD-EPI 2020) 37.35 Glucose 211 H Calcium 8.7 Magnesium Time Spent with Patient Time Spent with Patient: 35-49 minutes Time was spent: preparing to see the patient(eg.review tests), obtaining and/or reviewing separately otained hiistory, ordering medications,tests, procedures, referring, communicating with other health plant care worker, indepentently interpreting results, counseling the patient and care coordination
--- NOTE | 2023-10-07 20:27 | W.PM.PROGNOT ---
Date of Service Date of service: 10/07/23 Time of Service: 20:27 Assessment and Plan Assessment and plan (1) Radiation proctitis: Status: Chronic Assessment and plan: - Chronic changes noted on colonoscopy from 05/09 and confirmed by biopsy He has a longstanding history of rectal bleeding and stricture from his XRT. Continue steroid suppositories and avoid straining. Anemia is multifactorial from the radiation proctitis/bladder cancer/CKD 20 mins spent with the patient today. (2) Bright red blood per rectum: Status: Acute (3) Chronic blood loss anemia: Status: Acute (4) Chronic radiation proctitis: Status: Acute (5) Anal stricture: Status: Acute (6) Bladder cancer: Status: Acute (7) CKD (chronic kidney disease), stage III: Status: Chronic (8) Restrictive lung disease: Status: Chronic (9) Hypertension: Status: Chronic (10) Cirrhosis of liver: (11) Esophageal varices: Subjective Subjective Interval history since last seen: Patient did have a bowel movement with about 50 cc of bright red blood today. He had no bleeding last night. He had no pain. He is tolerating a regular diet. no headaches. No CP or SOB. no productive cough. no dysuria. no leg pain or swelling. We discussed findings on anoscopy yesterday and findings from his last colonoscopy at [facility]. I still think that we should continue to pursue medical therapy. I do not think he has had any appreciable drop in hemoglobin he was more on the dehydrated side when he initially came into the hospital if he continues to have bleeding overnight then may consider colonoscopy with fulguration. Exam GI Other: The abdomen is soft and nontender. No active bleeding well interviewing the patient Objective Last Vital Signs Temp 36.4 C L 10/07/23 20:08 Pulse 52 L 10/07/23 20:08 Resp 24 10/07/23 20:08 BP 146/49 H 10/07/23 20:01 Pulse Ox 98 10/07/23 20:08 Laboratory Results - last 24 hr 10/06/23 10/07/23 10/07/23 21:00 00:33 06:05 WBC 9.16 RBC 3.25 L Hgb 9.2 L Hct 28.7 L MCV 88 MCH 28.3 MCHC 32.1 RDW 16.7 H Plt Count 110 L MPV 12.7 H Immature Gran % 0.3 Neutrophils % 79.2 Lymphocytes % 12.2 Monocytes % 7.5 Eosinophils % 0.7 Basophils % 0.1 Nucleated RBC % 0.0 Absolute Neutrophils 7.25 H Absolute Lymphocytes 1.12 L Absolute Monocytes 0.69 Absolute Eosinophils 0.06 Absolute Basophils 0.01 PT 13.7 H INR 1.4 H Sodium 135 L 135 L 137 Potassium 5.8 H 5.4 H 4.7 Chloride 109 H 108 H 108 H Carbon Dioxide 21.1 22.2 23.8 Anion Gap 4.9 4.8 5.2 BUN 43 H 41 H 40 H Creatinine 1.6 H 1.7 H 1.6 H Est GFR (CKD-EPI 2020) 43.02 40.00 43.02 Glucose 107 H 129 H 129 H Calcium 8.9 9.0 8.8 Magnesium 2.1 10/07/23 14:08 WBC RBC Hgb Hct MCV MCH MCHC RDW Plt Count MPV Immature Gran % Neutrophils % Lymphocytes % Monocytes % Eosinophils % Basophils % Nucleated RBC % Absolute Neutrophils Absolute Lymphocytes Absolute Monocytes Absolute Eosinophils Absolute Basophils PT INR Sodium 136 Potassium 4.8 Chloride 105 Carbon Dioxide 24.3 Anion Gap 6.7 BUN 39 H Creatinine 1.8 H Est GFR (CKD-EPI 2020) 37.35 Glucose 211 H Calcium 8.7 Magnesium Time Spent with Patient Time Spent with Patient: 25-34 minutes Time was spent: preparing to see the patient(eg.review tests), obtaining and/or reviewing separately otained hiistory, ordering medications,tests, procedures, referring, communicating with other health transition of care specialist, indepentently interpreting results, counseling the patient and care coordination
[2023-10-08] VITALS (12 sets, daily range): BP systolic 91–151; BP diastolic 41–64; PULSE 56–79; RESP 16–25; TEMP 36.4–36.9; O2SAT 98–100
[2023-10-08] MEDS: Magnesium Oxide 400 MG TAB 200 MG PO (04:25)
[2023-10-08] MEDS: Magnesium Oxide 400 MG TAB (04:32)
[2023-10-08] MEDS: Omeprazole 20 MG CAPCR PO (04:35)
[2023-10-08] MEDS: Normal Saline Flush 10 ML SYR IVP ×2 (05:24→20:05)
[2023-10-08 06:07] LABS: Abs Immature Grans 0.01 10^3/uL (0.0-0.06); Absolute Basophil Count 0.01 10^3/uL (0.0-0.2); Absolute Eosinophil Count 0.09 10^3/uL (0.0-0.7); Absolute Lymphocyte Count 0.65 10^3/uL (1.2-3.4); Absolute Monocyte Count 0.27 10^3/uL (0.1-0.8); Absolute Neutrophil Count 2.74 10^3/uL (1.2-6.7); Basophils % 0.3; Eosinophils % 2.4; HCT 26.1 % (40.0-50.0); HGB 8.3 g/dL (13.5-17.5); Immature Grans % 0.3; Lymphocytes % 17.2; MCH 28.4 pg (27.0-33.0); MCHC 31.8 % (32.0-36.0); MCV 89 fL (80-95); Monocytes % 7.2; Neutrophils % 72.6; RBC 2.92 10^6/uL (4.36-5.78); RDW-SD 52.5 fL; WBC 3.77 10^3/uL (4.4-10.8)
[2023-10-08] MEDS: Sodium Zirconium Cyclosilicate 10 GM PKT PO (06:22)
[2023-10-08 06:24] LABS: INR 1.4 (0.9-1.1); Prothrombin Time 13.9 sec (9.1-11.1)
[2023-10-08 06:46] LABS: ALT 44 U/L (16-63); AST 37 U/L (15-37); Albumin 1.6 g/dL (3.4-5.0); Alkaline Phosphatase 140 U/L (46-116); Anion Gap 6.7 mmol/L (3-11); BUN 42 mg/dL (7-18); Bilirubin, Direct 0.2 mg/dL (0.0-0.2); Bilirubin, Total 0.6 mg/dL (0.2-1.0); CO2 26.3 mmol/L (21.0-32.0); CREATININE 1.6 mg/dL (0.70-1.30); Calcium 8.3 mg/dL (8.5-10.1); Chloride 106 mmol/L (98-107); Estimated GFR 43.02 (mL/min/1.73m2); Glucose 120 mg/dL (74-106); Magnesium 2.1 mg/dL (1.8-2.4); Sodium 139 mmol/L (136-145)
[2023-10-08 06:49] LABS: Diff Comment RBC Morph Reviewed; Polychromasia Present
[2023-10-08 06:50] LABS: Platelet Count 74 10^3/uL (130-400)
[2023-10-08] MEDS: Tiotropium Bromide-Respimat 10 PUFF INH 2 PUFF IH (08:14)
[2023-10-08] MEDS: Calcium 600mg/Vit D 200U TAB 1 TAB PO (09:56)
[2023-10-08] MEDS: Propranolol 60 MG CAPCR PO (09:56)
[2023-10-08] MEDS: Hydrocortisone 25 MG SUPP PR ×2 (09:56→20:05)
[2023-10-08] MEDS: Aspirin 81 MG CHEW PO (09:56)
--- NOTE | 2023-10-08 11:44 | CMPROGNOTE_ITS ---
Date of service: 10/08/23 Time of Service: 11:45 Care Management Progress Note Progress Note Text Progress Note Text: S/O: Marleny was sitting up in his chair when CM met with him. He stated that he is feeling good today, but per MD, he would remain again overnight. He is comfortable with this plan, and is happy with his care at [facility]. He stated that he has his own vehicle here, so when he is ready for discharge, he will drive himself home. He stated that he is independent and will not require any services upon discharge. CM will continue to follow. A: Marleny is an 83 year old male admitted to [facility] on 10/06/23 for JESUS, hyperkalemia. P: Anticipate Marleny will return home when ready per MD, he will follow up with his PCP and Urology as well as his plan of care as prescribed. CM continues to follow.
--- NOTE | 2023-10-08 16:32 | IN_ITS ---
PT Notes Visit Reasons: Bright red blood per rectum,JESUS with hyperkalemia, Physical Therapy Inpatient Initial Evaluation Date: 10/08/2023 Referring Doctor: PT Orders: PT CONSULT: Nicol Giles MD Precautions: Fall. Standard. Activity as tolerated. Patient Profile/Admitting Diagnosis: Marleny is an 83-year-old male patient admitted for management of radiation proctitis, JESUS, acute hyperkalemia, coagulopathy, and leukocytosis. PMHX: All Active Problems (Updated 10/06/23 @ 17:12 by Nicol Giles MD) Discharge planning issues (Acute) DVT prophylaxis (Acute) Leucocytosis (Acute) Radiation proctitis (Chronic) Coagulopathy (Acute) Bright red blood per rectum (Acute) Elevated INR (Acute) Chronic blood loss anemia (Acute) Chronic radiation proctitis (Acute) Anal stricture (Acute) JESUS (acute kidney injury) (Acute) Acute hyperkalemia (Acute) Hematochezia (Acute) Cough (Acute) Urgency incontinence (Acute) Bladder cancer (Acute) Mixed hearing loss, 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) Bronchospasm (Acute) Community acquired pneumonia of both lungs (Acute) History of prostate cancer (Chronic) CKD (chronic kidney disease), stage III (Chronic) Thrombocytopenia (Chronic) Rales (Chronic) Listed as basilar rales in PCP chartRestrictive lung disease (Chronic) 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 Independent with all aspects of ADLs without an assistive device prior to admission. Equipment Owned/DME: [facility] Subjective: Patient is hopeful to go home on day. Feels much better and okay to try out waling without an assistive device. Objective: General Observation: Sitting in bedside recliner. Telemetry detached from patient. Mental Status: Alert and oriented as to person, place, time, and purpose. Able to pay attention, focus, and respond appropriately. Pain: Denies Vital Signs: HR 63-75 bpm [facility] mobility assessment ROM: Right Upper Extremity: Shoulder Flexion WFL. Shoulder abduction WFL. Elbow flexion WFL. Wrist flexion WFL. Functional opening and closing of hand WFL. Left Upper Extremity: Shoulder Flexion WFL. Shoulder abduction WFL. Elbow flexion WFL. Wrist flexion WFL. Functional opening and closing of hand WFL. Right Lower Extremity: Hip flexion WFL. Hip abduction WFL. Knee flexion WFL. Ankle dorsiflexion WFL. Ankle plantarflexion WFL. Left Lower Extremity: Hip flexion WFL. Hip abduction WFL. Knee flexion WFL. Ankle dorsiflexion WFL. Ankle plantarflexion WFL. Strength: Right Upper Extremity: Shoulder flexors 4/5. Shoulder abductors 4/5. Elbow flexors 5/5. Elbow extensors 5/5. Marzipan Molder strong. Left Upper Extremity: Shoulder flexors 4/5. Shoulder abductors 4/5. Elbow flexors 5/5. Elbow extensors 5/5. Marzipan Molder strong. Right Lower Extremity: Hip flexors 4/5. Hip abductors 4/5. Knee flexors 5/5. Knee extensors 5/5. Ankle dorsiflexors 4/5. Ankle plantarflexors 4/5. Left Lower Extremity: Hip flexors 4/5. Hip abductors 4/5. Knee flexors 5/5. Knee extensors 5/5. Ankle dorsiflexors 4/5. Ankle plantarflexors 4/5. Bed Mobility/Transfers: Rolling independent Supine to sit independent Sit to supine independent Sit to stand independent Stand to sit independent Bed to reclining chair independent Reclining chair to bed independent Gait: 400 feet + 100 feet independently without an assistive device with HR between 63-75 bpm. No LOB, Mild SOb that subsided with rest. Balance: Static Sitting: Normal Dynamic Sitting: Normal Static Standing: Good Dynamic Standing: Good Special Tests: Mobility Limitations Standardized Measure [facility] AM-PAC 6 clicks Basic Mobility Inpatient Short Form: Raw Score: 24 CMS Score: 0% deficit Informed Consent/Education: Patient was instructed in purpose of PT consult. No skilled services needed at this time. Assessment: PT evaluation only. Patient may walk independently in the hallway on his own. No skilled services needed at this time. [place] 81246 low complexity based on the following: History: 83-year-old male with past medical history as indicated above Examination: Demonstrable impairment in strength, balance, and mobility level with underlying impairments and functional limitations as exhibited above as well as deficit score of 0% utilizing the [facility] Mobility Inpatient Short Form Presentation: Stable Decision Makin low complexity Goals: N/A. PT evaluation only. Plan of Care/Treatment Plan: N/A. PT evaluation only. DISCHARGE RECOMMENDATIONS: [X] Home with no services. HOme when medically cleared by hospitalist. [] Home with services [specify] [] Home with outpatient PT [] [] SNF for continued rehabilitation [] [] [facility] [] [] SNF versus LTC based on ability to participate and progress [] TREATMENT CODE/TIME: 38736 x 21 minutes for 1 unit beginning at 16:32 PM. Thank you for the opportunity to participate in the care of this patient. Mayuri Adames PT, DPT, CLT [facility] [place], [place]
--- NOTE | 2023-10-08 18:16 | W.PM.PROGNOT ---
Date of Service Date of service: 10/08/23 Time of Service: 18:16 Assessment and Plan Assessment and plan (1) JESUS (acute kidney injury): Status: Chronic Assessment and plan: Acute on chronic kidney injury. With hyperkalemia with peaked T waves, now resolved. In setting of GI bleeding, augmentin therapy, diuretic and ARB therapy at home. No longer on IVF and Cr is at baseline. Continue to hold diuretics and ARB. Outpatient augmentin was d/c'ed on admission. (2) Acute hyperkalemia: Status: Resolved Assessment and plan: resolved. Finished lokelma. Recheck potassium in am. Hold ARB. (3) Bright red blood per rectum: Status: Resolved Assessment and plan: Acute on chronic rectal bleeding due to anal stricture/radiation proctitis. Today the bleeding has clinically stopped. Discussed with Dr Belle: Continue steroid suppositories. Recheck H/H and plt count tomorrow am. (4) Thrombocytopenia: Status: Chronic Assessment and plan: The patient actually came in with a platelet count of 200, but I suspect that this was because he was dehydrated. His usual platelet counts are in the 40s-90s range. The platelet count of 74 this am is within that range and could also be due to acute bleeding. Recheck CBC in am. (5) Coagulopathy: Status: Acute Assessment and plan: in setting of known SPENCER. May be contributing to GI bleeding. Monitor INR. (6) Radiation proctitis: Status: Chronic Assessment and plan: As above (7) Leucocytosis: Status: Acute Assessment and plan: Suspect this was induced by steroids for bronchitis as outpatient. WBC normalized today. No indication for abx at this time. Procalcitonin normal. (8) DVT prophylaxis: Status: Acute Assessment and plan: SCDS. Avoid chemical DVT ppx in setting of GI bleeding and also thrombocytopenia (9) Discharge planning issues: Status: Acute Assessment and plan: Full code Anticipate discharge home tomorrow. Subjective Subjective Interval history since last seen: Mr Martin states he is feeling well. He denies dizziness CP, SOB, n/v. He had two non-bloody appearing bowel movements today. Exam Narrative Exam Narrative: General: Pleasant elderly male who is A&Ox3, NAD, sitting up in a chair, in good spirits HEENT: EOMI, MMM Cardiovascular: RRR, no m/r/g Lungs: crackles at B bases Gastrointestinal: soft, nontender, nondistended Extremities: no edema BLEs, 1+ pedal pulses B, no clubbing/cyanosis Objective Last Vital Signs Temp 36.5 C 10/08/23 11:46 Pulse 58 L 10/08/23 11:46 Resp 19 10/08/23 11:46 BP 107/53 L 10/08/23 11:46 Pulse Ox 98 10/08/23 11:46 Laboratory Results - last 24 hr 10/08/23 05:30 WBC 3.77 L RBC 2.92 L Hgb 8.3 L Hct 26.1 L MCV 89 MCH 28.4 MCHC 31.8 L RDW 16.0 H Plt Count 74 L MPV Immature Gran % 0.3 Neutrophils % 72.6 Lymphocytes % 17.2 Monocytes % 7.2 Eosinophils % 2.4 Basophils % 0.3 Nucleated RBC % 0.0 Absolute Neutrophils 2.74 Absolute Lymphocytes 0.65 L Absolute Monocytes 0.27 Absolute Eosinophils 0.09 Absolute Basophils 0.01 RBC Morphology See Below Polychromasia Present PT 13.9 H INR 1.4 H Sodium 139 Potassium 4.0 Chloride 106 Carbon Dioxide 26.3 Anion Gap 6.7 BUN 42 H Creatinine 1.6 H Est GFR (CKD-EPI 2020) 43.02 Glucose 120 H Calcium 8.3 L Magnesium 2.1 Total Bilirubin 0.6 Conjugated Bilirubin 0.2 AST 37 ALT 44 Alkaline Phosphatase 140 H Total Protein 6.0 L Albumin 1.6 L Time Spent with Patient Time Spent with Patient: 35-49 minutes Time was spent: preparing to see the patient(eg.review tests), obtaining and/or reviewing separately otained hiistory, ordering medications,tests, procedures, referring, communicating with other health caretaker resort, indepentently interpreting results, counseling the patient and care coordination
--- NOTE | 2023-10-08 21:02 | W.PM.PROGNOT ---
Date of Service Date of service: 10/08/23 Time of Service: 09:30 Assessment and Plan Assessment and plan (1) Radiation proctitis: Status: Chronic Assessment and plan: No gross bleeding in the past 24 hours. I did review the case with Dr. Giles.-Given his acute exacerbation of radiation proctitis/lung production from CKD/associated thrombocytopenia and elevated INR from chronic liver disease we will keep him overnight 1 more night to observe and make sure he has no further bleeding., -He did not have any chest pain, shortness of breath, fatigue, weakness or dizziness when he walked today. We will hold on transfusion. Ferritin is at low normal, will give a dose of Venofer to aid in hemoglobin production. -Hopefully DC home in a.m. if hemoglobin is stable. Patient would be willing to accept a blood transfusion if necessary. Continue supportive care -We will DC home on cortisone suppositories nightly for an additional 10 days and follow-up in surgical clinic in 2 weeks time. We will follow This document was created with voice activated software and may contain errors. 30 mins spent with the patient today. (2) Coagulopathy: Status: Acute (3) Bright red blood per rectum: Status: Resolved (4) Elevated INR: Status: Acute (5) Anal stricture: Status: Acute (6) Cirrhosis of liver: (7) Prostate cancer: (8) Internal hemorrhoid: (9) Esophageal varices: (10) Acute blood loss anemia: (11) CKD (chronic kidney disease), stage III: Status: Chronic (12) History of prostate cancer: Status: Chronic (13) S/P radiation therapy: Status: Resolved (14) Thrombocytopenia: Status: Chronic (15) Restrictive lung disease: Status: Chronic (16) Hypertension: Status: Chronic (17) Bladder cancer: Status: Acute Subjective Subjective Interval history since last seen: Pt is doing well. no headaches. No CP or SOB. no productive cough. no dysuria. no leg pain or swelling. Patient is tolerating a regular diet. He had a soft brown bowel movement today with no gross blood. He denies any rectal pain. He was up walking in the hallway and denied any chest pain or shortness of breath. He did drop a gram of hemoglobin in the last 24 hours. Exam Resp Effort & Inspection: normal respiratory effort and able to speak in complete sentences Auscultation: clear to auscultation bilaterally Cardio Other: nsr GI Other: No abdominal pain. No rectal pain. Normal bowel sounds. No gross bleeding. Objective Last Vital Signs Temp 36.4 C L 10/08/23 19:48 Pulse 67 10/08/23 19:48 Resp 18 10/08/23 19:48 BP 124/61 10/08/23 19:48 Pulse Ox 99 10/08/23 19:46 Laboratory Results - last 24 hr 10/08/23 05:30 WBC 3.77 L RBC 2.92 L Hgb 8.3 L Hct 26.1 L MCV 89 MCH 28.4 MCHC 31.8 L RDW 16.0 H Plt Count 74 L MPV Immature Gran % 0.3 Neutrophils % 72.6 Lymphocytes % 17.2 Monocytes % 7.2 Eosinophils % 2.4 Basophils % 0.3 Nucleated RBC % 0.0 Absolute Neutrophils 2.74 Absolute Lymphocytes 0.65 L Absolute Monocytes 0.27 Absolute Eosinophils 0.09 Absolute Basophils 0.01 RBC Morphology See Below Polychromasia Present PT 13.9 H INR 1.4 H Sodium 139 Potassium 4.0 Chloride 106 Carbon Dioxide 26.3 Anion Gap 6.7 BUN 42 H Creatinine 1.6 H Est GFR (CKD-EPI 2020) 43.02 Glucose 120 H Calcium 8.3 L Magnesium 2.1 Total Bilirubin 0.6 Conjugated Bilirubin 0.2 AST 37 ALT 44 Alkaline Phosphatase 140 H Total Protein 6.0 L Albumin 1.6 L Time Spent with Patient Time Spent with Patient: 25-34 minutes Time was spent: preparing to see the patient(eg.review tests), obtaining and/or reviewing separately otained hiistory, ordering medications,tests, procedures, referring, communicating with other health health care social worker, counseling the patient and care coordination
[2023-10-09] VITALS (7 sets, daily range): BP systolic 115–137; BP diastolic 48–62; PULSE 53–70; RESP 20–21; TEMP 36.4–36.8; O2SAT 96–98
[2023-10-09] MEDS: IRON SUCROSE COMPLEX 200 MG in Normal Saline 100 ML 400 MG IVPB (00:24)
[2023-10-09] MEDS: Acetaminophen 325 MG TAB PO (04:36)
[2023-10-09] MEDS: Magnesium Oxide 400 MG TAB 200 MG PO (04:37)
[2023-10-09] MEDS: Albuterol HFA 8 GM 60 PUFF INH IH (05:11)
[2023-10-09 07:04] LABS: Abs Immature Grans 0.03 10^3/uL (0.0-0.06); Absolute Basophil Count 0.02 10^3/uL (0.0-0.2); Absolute Eosinophil Count 0.08 10^3/uL (0.0-0.7); Absolute Lymphocyte Count 0.73 10^3/uL (1.2-3.4); Absolute Monocyte Count 0.34 10^3/uL (0.1-0.8); Absolute Neutrophil Count 3.14 10^3/uL (1.2-6.7); Basophils % 0.5; Eosinophils % 1.8; HCT 25.5 % (40.0-50.0); HGB 8.2 g/dL (13.5-17.5); Immature Grans % 0.7; Lymphocytes % 16.8; MCH 28.1 pg (27.0-33.0); MCHC 32.2 % (32.0-36.0); MCV 87 fL (80-95); Monocytes % 7.8; Neutrophils % 72.4; RBC 2.92 10^6/uL (4.36-5.78); RDW 15.8 % (11.8-14.1); RDW-SD 50.2 fL; WBC 4.34 10^3/uL (4.4-10.8)
[2023-10-09 07:13] LABS: INR 1.4 (0.9-1.1)
[2023-10-09 07:20] LABS: ALT 47 U/L (16-63); AST 38 U/L (15-37); Albumin 1.6 g/dL (3.4-5.0); Alkaline Phosphatase 137 U/L (46-116); Anion Gap 7.5 mmol/L (3-11); BUN 42 mg/dL (7-18); Bilirubin, Direct 0.2 mg/dL (0.0-0.2); Bilirubin, Total 0.7 mg/dL (0.2-1.0); CO2 24.5 mmol/L (21.0-32.0); CREATININE 1.7 mg/dL (0.70-1.30); Chloride 102 mmol/L (98-107); Glucose 193 mg/dL (74-106); Magnesium 2.1 mg/dL (1.8-2.4); Potassium 3.5 mmol/L (3.5-5.1); Sodium 134 mmol/L (136-145)
[2023-10-09] MEDS: Tiotropium Bromide-Respimat 10 PUFF INH 2 PUFF IH (08:30)
[2023-10-09 08:42] LABS: Diff Comment Diff Reviewed; Hypochromasia 2+; Platelet Count 68 10^3/uL (130-400)
[2023-10-09] MEDS: Hydrocortisone 25 MG SUPP PR ×2 (10:33→19:47)
[2023-10-09] MEDS: Calcium 600mg/Vit D 200U TAB 1 TAB PO (10:33)
[2023-10-09] MEDS: Aspirin 81 MG CHEW PO (10:33)
[2023-10-09] MEDS: Propranolol 60 MG CAPCR PO (10:33)
[2023-10-09] MEDS: Omeprazole 20 MG CAPCR PO (10:34)
--- NOTE | 2023-10-09 12:40 | W.PM.PROGNOT ---
Date of Service Date of service: 10/09/23 Time of Service: 12:40 Assessment and Plan Assessment and plan (1) Radiation proctitis: Status: Chronic Assessment and plan: Hemoglobin has been stable since yesterday, and clinically seems to be improving. Will continue with the hydrocortisone suppositories as an outpatient, and plan for early follow-up next week in our office Subjective Subjective Interval history since last seen: He is feeling better today, and is quite eager to be discharged. He has been tolerating food without any difficulty at all. Generally speaking his hematochezia has improved quite a bit, but he does still have occasional evidence of blood in his stools Objective Last Vital Signs Temp 97.7 F 10/09/23 08:00 Pulse 57 L 10/09/23 04:26 Resp 20 10/09/23 04:26 BP 137/57 L 10/09/23 04:26 Pulse Ox 98 10/09/23 04:26 Laboratory Results - last 24 hr 10/09/23 05:45 WBC 4.34 L RBC 2.92 L Hgb 8.2 L Hct 25.5 L MCV 87 MCH 28.1 MCHC 32.2 RDW 15.8 H Plt Count 68 L MPV Immature Gran % 0.7 Neutrophils % 72.4 Lymphocytes % 16.8 Monocytes % 7.8 Eosinophils % 1.8 Basophils % 0.5 Nucleated RBC % 0.0 Absolute Neutrophils 3.14 Absolute Lymphocytes 0.73 L Absolute Monocytes 0.34 Absolute Eosinophils 0.08 Absolute Basophils 0.02 RBC Morphology See Below Hypochromasia 2+ PT 14.0 H INR 1.4 H Sodium 134 L Potassium 3.5 Chloride 102 Carbon Dioxide 24.5 Anion Gap 7.5 BUN 42 H Creatinine 1.7 H Est GFR (CKD-EPI 2020) 40.00 Glucose 193 H Calcium 8.0 L Magnesium 2.1 Total Bilirubin 0.7 Conjugated Bilirubin 0.2 AST 38 H ALT 47 Alkaline Phosphatase 137 H Total Protein 6.0 L Albumin 1.6 L Time Spent with Patient Time Spent with Patient: <25 minutes Time was spent: referring, communicating with other health director critical care, counseling the patient and care coordination
--- NOTE | 2023-10-09 12:52 | W.PM.PROGNOT ---
Date of Service Date of service: 10/09/23 Time of Service: 12:52 Assessment and Plan Assessment and plan (1) Cardiac volume overload: Status: Acute Assessment and plan: Patient denies any CP but is mildly dyspneic w/ prolonged conversations and he has bilateral basilar rales and pitting pedal/pretibial edema. He denies any hx of CHF or PR but has known COPD. I did POCUS of his lungs, he has diffuse bilateral b line pattern w/out consolidation or effusions. I think that he is volume overloaded. I did a brief look at his heart in parasternal short axis, long axis and 4 chamber and 2 chamber view and he appears to have grossly normal LV and RV function however, I will get formal echo tomorrow. In the interim, he needs short course of lasix and for that reason I will hold his discharge for a day. (2) Radiation proctitis: Status: Chronic Assessment and plan: continue corticosteroid rectal cream/suppository (3) JESUS (acute kidney injury): Status: Chronic Assessment and plan: his renal function is not that far off his baseline w/ baseline creatinine of 1.5 back in 2021, however his baseline BUN is in the 20's back in 2021. He may have had some upper GI bleeding from his varices but he has not had any overt hematemesis. We have been assuming that his rectal bleeding is all from his proctitis. (4) Thrombocytopenia: Status: Chronic Assessment and plan: secondary to SPENCER, however, platelets have decreased to 68,000, baseline appears to be around in the 70's however he came in w/ normal platelet count of 200,000. This may have been spuriously elevated from stress reaction but he also is on aspirin for unclear reasons. He tells me that Dr. Burton has him on it for his heart yet he denies any hx of PR or CVA or PAD. I will hold his aspirin in light of his rectal bleeding and decreasing platelet count. (5) Coagulopathy: Status: Acute Assessment and plan: likely secondary to his SPENCER, continue to monitor (6) DVT prophylaxis: Status: Acute Assessment and plan: SCDS. Avoid chemical DVT ppx in setting of GI bleeding and also thrombocytopenia (7) Discharge planning issues: Status: Acute Assessment and plan: I do not feel that he is ready to return home in light of his dyspnea and evidence for volume overload Subjective Subjective Interval history since last seen: Patient feels better than when he presented. No dizziness, or CP but he has harsh cough, clear mucous. Hb stable at 8.3 gm. He still has some slight blood around the stool when he has BM. He has had two BM this morning. vitals signs are stable. He would like to return home however I am concerned about his cough. Exam Narrative Exam Narrative: Marleny is alert and oriented, he just finished his lunch. I saw him w/ Dr. Yury Hernandez from surgery who indicated that he would get Marleny in the office for acute follow up next week Marleny is having paroxysms of harsh cough, mucous appears clear Lungs: bibasilar rales, no rhonchi Heart: RRR w/out murmur or rub Abdomen: soft, nontender Legs: 1+ pitting pretibial edema Objective Last Vital Signs Temp 36.5 C 10/09/23 08:00 Pulse 57 L 10/09/23 04:26 Resp 20 10/09/23 04:26 BP 137/57 L 10/09/23 04:26 Pulse Ox 98 10/09/23 04:26 Laboratory Results - last 24 hr 10/09/23 05:45 WBC 4.34 L RBC 2.92 L Hgb 8.2 L Hct 25.5 L MCV 87 MCH 28.1 MCHC 32.2 RDW 15.8 H Plt Count 68 L MPV Immature Gran % 0.7 Neutrophils % 72.4 Lymphocytes % 16.8 Monocytes % 7.8 Eosinophils % 1.8 Basophils % 0.5 Nucleated RBC % 0.0 Absolute Neutrophils 3.14 Absolute Lymphocytes 0.73 L Absolute Monocytes 0.34 Absolute Eosinophils 0.08 Absolute Basophils 0.02 RBC Morphology See Below Hypochromasia 2+ PT 14.0 H INR 1.4 H Sodium 134 L Potassium 3.5 Chloride 102 Carbon Dioxide 24.5 Anion Gap 7.5 BUN 42 H Creatinine 1.7 H Est GFR (CKD-EPI 2020) 40.00 Glucose 193 H Calcium 8.0 L Magnesium 2.1 Total Bilirubin 0.7 Conjugated Bilirubin 0.2 AST 38 H ALT 47 Alkaline Phosphatase 137 H Total Protein 6.0 L Albumin 1.6 L Time Spent with Patient Time Spent with Patient: >50 minutes Time was spent: preparing to see the patient(eg.review tests), obtaining and/or reviewing [facility], ordering medications,tests, procedures, referring, communicating with other health manager critical care unit (seen and discussed w/ Dr. Yury Neely), indepentently interpreting results, counseling the patient and care coordination
--- NOTE | 2023-10-09 12:52 | W.POCUS ---
Pocus Exam Limited Thoracic Lung Exam DATE OF EXAM: 10/09/23 TIME OF EXAM: 12:53 PROVIDER THAT PERFORMED THE STUDY: Dominick Rodgers IS THIS A REPEAT EXAM DURING THIS ENCOUNTER: No REASON FOR EXAM: Shortness ofBreath VISUALIZED STRUCTURES: right anterior, left anterior, right lateral, left lateral, right posterior, left posterior, right subcostal and left subcostal PERTINENT FINDINGS/IMPRESSION: B-lines/left side thoracis location: anterior, lateral and posterior, B-lines/right side thoracis location: anterior, lateral and posterior and Other (Please note that images 1-6 are mislabeled as right when in fact they are left sided images) impression: Diffuse bilateral B line pattern w/out consolidations or effusions, findings consistent w/ diffuse interstitial edema ; no pneumonia noted, no pleural effusion on the left and no pleural effusion on the right
[2023-10-09] MEDS: Benzonatate 200 MG CAP PO ×2 (13:06→19:47)
[2023-10-09] MEDS: guaiFENesin 600 MG TABCR PO ×2 (13:06→19:47)
[2023-10-09 13:15] LABS: Lab Add On Test DONE
[2023-10-09 13:48] LABS: NT-proBNP 288 pg/mL (<300)
[2023-10-09] MEDS: Pantoprazole 40 MG TABCR PO (14:01)
[2023-10-09] MEDS: Normal Saline Flush 10 ML SYR IVP (15:42)
[2023-10-09] MEDS: Furosemide 40 MG/4 ML VIAL IVP (15:43)
[2023-10-09] MEDS: Doxycycline Hyclate 100 MG CAP PO (19:47)
[2023-10-10 07:04] LABS: Abs Immature Grans 0.03 10^3/uL (0.0-0.06); Absolute Basophil Count 0.03 10^3/uL (0.0-0.2); Absolute Eosinophil Count 0.11 10^3/uL (0.0-0.7); Absolute Lymphocyte Count 0.81 10^3/uL (1.2-3.4); Absolute Monocyte Count 0.37 10^3/uL (0.1-0.8); Basophils % 0.7; Eosinophils % 2.5; HCT 26.6 % (40.0-50.0); HGB 8.8 g/dL (13.5-17.5); Immature Grans % 0.7; Lymphocytes % 18.2; MCH 28.5 pg (27.0-33.0); MCHC 33.1 % (32.0-36.0); MCV 86 fL (80-95); Monocytes % 8.3; Neutrophils % 69.6; RBC 3.09 10^6/uL (4.36-5.78); RDW 15.8 % (11.8-14.1); RDW-SD 49.1 fL; WBC 4.45 10^3/uL (4.4-10.8)
[2023-10-10 07:05] VITALS: BP 128/50; PULSE 59; O2SAT 98
[2023-10-10 07:07] VITALS: BP 128/50; PULSE 60; RESP 18; TEMP 36.4; O2SAT 99
[2023-10-10 07:22] LABS: Anion Gap 7.6 mmol/L (3-11); BUN 42 mg/dL (7-18); CO2 25.4 mmol/L (21.0-32.0); CREATININE 1.7 mg/dL (0.70-1.30); Calcium 8.4 mg/dL (8.5-10.1); Chloride 101 mmol/L (98-107); Glucose 145 mg/dL (74-106); Potassium 3.4 mmol/L (3.5-5.1); Sodium 134 mmol/L (136-145)
[2023-10-10 07:34] LABS: Diff Comment Diff Reviewed; Platelet Count 76 10^3/uL (130-400); RBC Morphology Normal
[2023-10-10 07:46] LABS: Procalcitonin 0.2 ng/mL
[2023-10-10 08:20] VITALS: BP 119/64; PULSE 63; TEMP 36.9; O2SAT 98
[2023-10-10] MEDS: guaiFENesin 600 MG TABCR PO (08:23)
[2023-10-10] MEDS: Doxycycline Hyclate 100 MG CAP PO (08:23)
[2023-10-10] MEDS: Hydrocortisone 25 MG SUPP PR (08:23)
[2023-10-10] MEDS: Calcium 600mg/Vit D 200U TAB 1 TAB PO (08:23)
[2023-10-10] MEDS: Propranolol 60 MG CAPCR PO (08:23)
[2023-10-10] MEDS: Pantoprazole 40 MG TABCR PO (08:23)
[2023-10-10] MEDS: Benzonatate 200 MG CAP PO ×2 (08:23→14:47)
[2023-10-10] MEDS: Furosemide 40 MG/4 ML VIAL IVP (08:24)
[2023-10-10] MEDS: Magnesium Oxide 400 MG TAB 200 MG PO (08:24)
[2023-10-10] MEDS: Tiotropium Bromide-Respimat 10 PUFF INH 2 PUFF IH (08:39)
[2023-10-10] MEDS: Potassium Chloride 10 MEQ CAPCR 40 MEQ PO (11:21)
--- NOTE | 2023-10-10 12:39 | PDOC.CMDIS ---
Date of service: 10/10/23 Time of Service: 12:39 LACE Index Scoring Tool Questions: Length of Stay (in days): 4 - 6 Was the patient admitted via the E.D.?: Yes E.D. Visits: 1 Answers: Total Score: 8 Risk of Readmission: Low Risk Care Management Discharge Plan Reason for Hospitalization: Bright red blood per rectum, JESUS with hyperkalemia Discharge Plan: Marleny will return home when ready per MD, he will follow up with his PCP and Urology as well as his plan of care as prescribed. He will transport himself via private vehicle. Patient/Family Education Needs: Review discharge instructions, discuss Ask Me Three.
--- NOTE | 2023-10-10 14:06 | DSE_ITS ---
Date of service: 10/10/23 Time of Service: 14:06 DS: Diagnosis Discharge Diagnosis (1) Bright red blood per rectum: Status: Resolved (2) Radiation proctitis: Status: Chronic (3) Chronic blood loss anemia: Status: Chronic (4) Cardiac volume overload: Status: Resolved (5) JESUS (acute kidney injury): Status: Resolved (6) BROWN (nonalcoholic steatohepatitis): Status: Chronic (7) Thrombocytopenia: Status: Chronic (8) Coagulopathy: Status: Chronic (9) Chronic radiation proctitis: Status: Chronic (10) Hypertension: Status: Chronic (11) Restrictive lung disease: Status: Chronic Discharge Plan Disposition Patient Disposition: Home Condition: Improving Discharge Details Reason For Visit: Bright red blood per rectum,JESUS with hyperkalemia, Admit Date/Time: 10/06/23 14:37 Admit Provider: Nicol Giles Attending Provider: Nicol Giles [facility]: 83-year-old male with a history of nonalcoholic cirrhosis secondary to Brown with a history of varices status post banding, history of prostate cancer with subsequent radiation proctitis as well as anal stricture and history of low- grade bladder cancer presented emergency department bright red rectal bleeding that began 3 AM on the morning of admission. He was found to be in acute renal insufficiency in the setting of chronic kidney disease his baseline creatinine 1.5 and risen to 1.9 associated with hyperkalemia 5.7. Because of the elevated potassium associated with some peaked T waves on EKG the ED provider treated with insulin and calcium. Hemoglobin on arrival was 11 g, INR was elevated at 1.4. BUN was 52 and creatinine was 1.9. LFTs were mildly elevated with an alkaline phosphatase 215, AST 54 with a normal total bilirubin 0.6. His white count was elevated at 13,000 on admission. Surgical consultation was obtained with Dr. Belle who felt that his rectal bleeding was secondary to his anal stenosis and radiation proctitis. Patient had been on aspirin at home for unclear reasons other than the patient stated that his primary care provider said it was for his heart even though he denies any history of heart attack or strokes. For unclear reasons this aspirin was continued through his hospital stay despite the fact that he had ongoing rectal bleeding. He was not placed on any chemical DVT prophylaxis due to the fact that he was having active bleeding. He was treated with some Venofer per surgeon's recommendation to help treat his anemia as his ferritin was at the low end of normal. Serial hemograms were monitored as hemoglobin dropped overnight from 11.0 g down to 9.2 g but then further hemoglobin stabilized and upon discharge was 8.8 g. Still had some intermittent streaks of blood with his stools and his radiation proctitis was treated with rectal corticosteroid suppositories. His aspirin was discontinued. He was found to be in mild hypervolemia secondary to fluid resuscitation. He did not receive any blood transfusions during this hospital course. Surprisingly his platelet count was at 208,000 on admission but I think this was factitious as this is not in line with his chronic thrombocytopenia which varies between 50 and 90,000. Subsequent platelet counts were monitored during his hospital stay and remained between 68-76,000. This is a reflection of his chronic liver disease from his BROWN. Patient had a nonproductive cough which was felt to be related to his volume overload. He was put on bronchodilators for his chronic lung disease. Patient was discharged home in markedly improved condition after brief IV diuresis. Vital signs at the time of discharge she was afebrile at 36.9 his blood pressure was 119/64 his pulse was 63 and regular his oxygen saturation was 98% on room air. His discharge weight was 75.4 kg. He had come in at 80 kg. His potassium was 3.4 discharge his BUN was 42 creatinine 1.7. He is instructed to have a follow-up CMP and CBC next week and to follow-up with his primary care provider in 1 week and follow-up with Dr. Belle or Dr. Yury Hernandez early next week. He was discharged home on increased dose of omeprazole 40 mg daily and supplemental potassium 20 mill equivalents daily. His chlorthalidone was resumed as was his losartan. He was also prescribed hydrocortisone acetate rectal suppositories 25 mg twice a day. Discharge instructions were given to him regarding rectal bleeding. If he has severe bleeding or has symptoms of dizziness or lightheadedness he should return to the emergency department. His aspirin was discontinued at the time of discharge. Home Meds and New Rx's Prescriptions: New hydrocortisone acetate 25 mg Suppository 25 mg CA BID 10 Days Qty: 12 1RF potassium chloride 20 mEq tablet extended release 20 meq PO DAILY 30 Days Qty: 30 0RF Continued magnesium oxide 250 MG tablet 250 mg PO DAILY AM Spiriva Respimat 2.5 mcg/actuation mist 2 puff inhalation DAILY Calcium 600 + D(3) 600 mg calcium- 200 unit Capsule 1 cap PO DAILY albuterol sulfate [ProAir HFA] 8.5 GM HFA aerosol inhaler 2 puff Inhalation Q4H Qty: 0 0RF chlorthalidone 25 mg tablet 12.5 mg PO DAILY Patient Comments: Take 1/2 tablet by mouth once a day with losartan benzonatate 100 mg capsule 100 mg PO TID PRN PRN losartan 100 mg tablet 100 mg PO DAILY propranolol 80 mg capsule,extended release 24 hr 80 mg PO DAILY Myrbetriq 25 mg tablet extended release 24 hr 25 mg PO DAILY Changed omeprazole 20 mg capsule,delayed release(DR/EC) 40 mg PO DAILY Qty: 0 0RF Discontinued losartan 50 MG tablet 100 mg PO DAILY aspirin 81 MG tablet,chewable 81 mg PO DAILY propranolol 60 mg capsule,extended release 24 hr 60 mg PO DAILY amoxicillin-pot clavulanate 875-125 mg tablet 1 tab PO BID Discharge Instructions Instructions: Hydrocortisone (Into the rectum), Rectal Bleeding (DC) Additional Instructions: Get repeat labs including BMP and CBC to monitor your electrolytes kidney function and your blood count. Follow-up with Dr. Marie next week. Referrals: Edgar Marie [Primary Care Provider] - (Office will be calling you Friday to schedule an appointment.) Yury Hernandez MD [ [facility] STAFF PHYSICIAN] - (The office will call you Friday morning to schedule an appointment. ) Activity:: Activity as Tolerated Equipment/Supplies:: No Equipment Needed Diet:: Low Sodium Discharge Orders Discharge Orders: Discharge Order (Routine); Ordered 10/10/23 Ordered By: Dominick Rodgers Other Ambulatory Orders: Basic Metabolic Panel (Routine) Timeframe: 1 Week Facility: [facility] - Location: Laboratory Outpatient - [facility] Ordered By: Dominick Rodgers Complete Blood Count w/Diff (Routine) Timeframe: 1 Week Facility: [facility] - Location: Laboratory Outpatient - [facility] Ordered By: Dominick Rodgers Discharge Data Discharge Date/Time-TO BE ENTERED AT DEPARTURE: 10/10/23 15:45 DS: Summary Time Spent with Patient providing and/or coordinating discharge services: Greater than 30 minutes Specific discharge activities: Interview/exam of patient; review of discharge instructions, completion of prescriptions/discharge instructions; discussion w/ nursing and CM; documentation of hospital visit Status at Discharge Functional status at discharge: independent ambulation Overall status at discharge: patient is progressing back to baseline Mental Status: mental status grossly normal Speech and Movement: speech and movement normal Mood: congruent mood Affect: normal affect Exam Narrative Exam Narrative: Marleny is sitting up in bed not requiring any oxygen not short of breath but has a mild nonproductive cough Lungs are clear anteriorly posteriorly has some fine bibasilar rales no rhonchi or wheezing he has prolonged expiratory phase. Heart is regular rate and rhythm Abdomen soft nontender Lower extremities without peripheral edema Psych Mental Status: mental status grossly normal Speech and Movement: speech and movement normal Mood: congruent mood Affect: normal affect DS: Data Vitals/I&O Vitals and I&O: Vital Signs Temperature 36.9 C 10/10/23 08:20 Temperature Source Tympanic 10/10/23 07:07 Pulse 63 10/10/23 08:20 Pulse Rhythm Regular 10/10/23 08:50 Pulse 70 10/09/23 00:59 Respiratory Rate 18 10/10/23 07:07 Respiratory Effort Normal, Non-Labored 10/10/23 08:50 Respiratory Depth Normal 10/10/23 08:50 Respiratory Pattern Normal 10/10/23 08:50 Blood Pressure 119/64 10/10/23 08:20 Blood Pressure Mean 79 10/10/23 08:20 Blood Pressure Position Sitting 10/07/23 20:08 Pulse Oximetry 98 10/10/23 08:20 Oxygen Delivery Method Room Air 10/10/23 07:07 Oxygen Flow Rate 0 10/10/23 07:07 Pain Level 0 10/10/23 07:07 Comment pt sitting in recliner chair with dependent legs 10/09/23 04:26 Intake & Output 10/09/23 10/10/23 10/10/23 23:59 11:59 23:59 Intake Total 240 / 1190 500 / 750 250 / 750 Output Total 240 / 990 1275 / 1275 Balance 0 / 200 -775 / -525 250 / -525 Intake: IV Oral 240 / 1080 490 / 740 250 / 740 Output: Urine 240 / 990 1275 / 1275 Other: Urine Color Pale Yellow Yellow Urine Appearance Clear Clear Urine Odor Normal Normal Comment Immeasurable- mixed w/ stool. I would estimate about 300cc of clear yellow urine. Stool Occult Blood Positive Stool Size Smear Stool Characteristics Soft Formed Voiding Methods Bedside Commode Bedside Commode Data Completed and Pending Labs on day of discharge: Labs from last 24 hours 10/10/23 05:40 WBC 4.45 RBC 3.09 L Hgb 8.8 L Hct 26.6 L MCV 86 MCH 28.5 MCHC 33.1 RDW 15.8 H Plt Count 76 L MPV Immature Gran % 0.7 Neutrophils % 69.6 Lymphocytes % 18.2 Monocytes % 8.3 Eosinophils % 2.5 Basophils % 0.7 Nucleated RBC % 0.0 Absolute Neutrophils 3.10 Absolute Lymphocytes 0.81 L Absolute Monocytes 0.37 Absolute Eosinophils 0.11 Absolute Basophils 0.03 RBC Morphology Normal Sodium 134 L Potassium 3.4 L Chloride 101 Carbon Dioxide 25.4 Anion Gap 7.6 BUN 42 H Creatinine 1.7 H Est GFR (CKD-EPI 2020) 40.00 Glucose 145 H Calcium 8.4 L Procalcitonin 0.2 PFSH All Active Problems (Updated 10/10/23 @ 21:12 by Dominick Rodgers MD) BROWN (nonalcoholic steatohepatitis) (Chronic) Discharge planning issues (Acute) DVT prophylaxis (Acute) Leucocytosis (Acute) Radiation proctitis (Chronic) Coagulopathy (Chronic) Elevated INR (Acute) Chronic blood loss anemia (Chronic) Chronic radiation proctitis (Chronic) Anal stricture (Acute) Hematochezia (Acute) Cough (Acute) Urgency incontinence (Acute) Bladder cancer (Acute) Mixed hearing loss, bilateral (Acute) History of prostate cancer (Chronic) CKD (chronic kidney disease), stage III (Chronic) Thrombocytopenia (Chronic) Restrictive lung disease (Chronic) 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 Father Cardiovascular disease Brother No problems noted. 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
== END 2023-10-10 15:45 | disposition home or self-care (01) | DRG 683 ==
LOC: ER 14:28 → ICU 16:10
PROVIDERS: Internal Medicine; Surgery; Admitting Provider Internal Medicine; Emergency Provider Emergency Medicine; PCP Family Medicine; Visit Provider Internal Medicine
DX: N17.9 Acute kidney failure, unspecified (principal); I85.10 Secondary esophageal varices without bleeding; K62.5 Hemorrhage of anus and rectum; E87.5 Hyperkalemia; C67.9 Malignant neoplasm of bladder, unspecified; K62.4 Stenosis of anus and rectum; K62.7 Radiation proctitis; Y84.2 Radiological procedure and radiotherapy as the cause of abnormal reaction of the patient, or of later complication, without mention of misadventure at the time of the procedure; J98.4 Other disorders of lung; N39.41 Urge incontinence; N18.30 Chronic kidney disease, stage 3 unspecified; I12.9 Hypertensive chronic kidney disease with stage 1 through stage 4 chronic kidney disease, or unspecified chronic kidney disease; D72.829 Elevated white blood cell count, unspecified; R79.1 Abnormal coagulation profile; H90.6 Mixed conductive and sensorineural hearing loss, bilateral; H80.93 Unspecified otosclerosis, bilateral; K64.1 Second degree hemorrhoids; K60.2 Anal fissure, unspecified; K75.81 Nonalcoholic steatohepatitis (NASH); K74.69 Other cirrhosis of liver; R05.9 Cough, unspecified; Z85.46 Personal history of malignant neoplasm of prostate; J44.9 Chronic obstructive pulmonary disease, unspecified; E87.79 Other fluid overload; D69.59 Other secondary thrombocytopenia; D50.9 Iron deficiency anemia, unspecified
CPT/HCPCS: 46600; 00123; 36415; 36416; 80048; 80053; 80076; 82962; 84145; 86850; 86900; 86901; 87635; 93005; 94640; 96361; 96374; 96375; 97161; 99222; 99231; 99232; 99291; 82728; 83735; 83880; 84132; 84484; 85014; 85018; 85025; 85610; 87070; 87205; 93010; 93306; 94664; 99223; 99233; 99239; J0612; J1756; J1940; J1941; J3490; J7042

== ENCOUNTER 2023-10-14 18:10 | Outpatient (REF) | payer OTHER, SELFPAY ==
[2023-10-14 15:19] LABS: MCH 28.7 pg (27.0-33.0); MCV 92 fL (80-95); RBC 3.14 10^6/uL (4.36-5.78); RDW 17.4 % (11.8-14.1); RDW-SD 57.7 fL; WBC 4.09 10^3/uL (4.4-10.8)
[2023-10-14 15:30] LABS: ALT 40 U/L (16-63); AST 38 U/L (15-37); Alkaline Phosphatase 156 U/L (46-116); Anion Gap 6.4 mmol/L (3-11); BUN 42 mg/dL (7-18); Bilirubin, Total 0.7 mg/dL (0.2-1.0); CO2 28.6 mmol/L (21.0-32.0); CREATININE 2.1 mg/dL (0.70-1.30); Calcium 8.4 mg/dL (8.5-10.1); Chloride 108 mmol/L (98-107); Estimated GFR 31.04 (mL/min/1.73m2); Glucose 109 mg/dL (74-106); Potassium 4.6 mmol/L (3.5-5.1); Sodium 143 mmol/L (136-145); Total Protein 6.5 g/dL (6.4-8.2)
[2023-10-14 15:37] LABS: Platelet Count 61 10^3/uL (130-400)
== END 2023-10-14 18:11 | disposition home or self-care (01) ==
LOC: NCHCN 18:10
PROVIDERS: PCP Family Medicine; Visit Provider Family Medicine
DX: K62.7 Radiation proctitis (principal); K74.60 Unspecified cirrhosis of liver
CPT/HCPCS: 80053; 85027

== ENCOUNTER → 2024-01-08 11:56 | Outpatient (CLI) | payer OTHER, MEDICARE, SELFPAY ==
--- NOTE | 2024-01-08 | DI.RAD_ITS ---
Exam(s) XR CHEST 2V PA LATERAL EXAM: XR CHEST 2V PA LATERAL CLINICAL HISTORY: R05-9 cough unspecified, Signs of consolidaton on asucultation in RLL TECHNIQUE: 2D digital imaging was performed of the chest. Two images were obtained. PA and lateral views were obtained. COMPARISON: CR XR PORTABLE CHEST AP from 12/03/2021 CR,XR XR CHEST 2V PA LATERAL from 09/28/2023 FINDINGS: MEDIASTINUM: Normal. HEART: Normal. PULMONARY VASCULATURE: Normal. LUNGS: There are diffuse stable chronic interstitial infiltrates in the lungs. No focal consolidatin g infiltrates are seen. PLEURAL SPACE: No pleural effusion or pneumothorax. BONE:Within normal limits for the patient's age. OTHER FINDINGS:There is unchanged elevation of the right hemidiaphragm. IMPRESSION: 1. Stable chronic pulmonary fibrotic changes in the lungs. 2. No acute infiltrates are seen. 3. Stable elevation of the right hemidiaphragm. DATA REPOSITORY: RADIATION DOSE DELIVERED:
== END ==
PROVIDERS: PCP Family Medicine; Visit Provider Student in an Organized Health Care Education/Training Program
DX: R91.8 Other nonspecific abnormal finding of lung field (principal)
CPT/HCPCS: 71046

== ENCOUNTER → 2024-01-13 12:45 | Outpatient (BNVA) | payer OTHER, MEDICARE, SELFPAY | PROVIDERS: Referring Provider Family Medicine; Visit Provider Urology | DX: N39.41 Urge incontinence (principal); C67.9 Malignant neoplasm of bladder, unspecified | CPT/HCPCS: 52000; 81003 ==

== ENCOUNTER 2024-02-16 06:21 | Day surgery (SDC) | payer MEDICARE, OTHER, SELFPAY ==
[2024-02-16 06:31] VITALS: BP 153/59; PULSE 79; RESP 16; TEMP 36.6; O2SAT 98
--- NOTE | 2024-02-16 07:01 | W.PM.HP.N ---
Date of service: 02/16/24 Time of Service: 07:01 Assessment and Plan Assessment and plan (1) Bladder cancer: Status: Acute Assessment and plan: We will plan cystoscopy and transurethral resection of his previously identified bladder tumor History of Present Illness History of Present Illness Chief Complaint: Bladder cancer Narrative: This is an 83-year-old gentleman who has a history of prostate cancer treated with radiation therapy. I met him when he developed gross hematuria and we identified low-grade, noninvasive urothelial cell carcinoma of the bladder. He was treated with transurethral resection. On his most recent surveillance cystoscopy, we found a tumor recurrence. He presents now for transurethral resection and instillation of chemotherapy into the bladder. Review of Systems Narrative: No fevers or chills Decreased hearing acuity. No vision change or dysphasia No diabetes or thyroid SOB with exertion. No hemoptysis No chest pain or palpitations No nausea or vomiting No seizures, strokes or peripheral neuropathy Bleeds easily while anticoagulated. 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 Father Cardiovascular disease Brother No problems noted. 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 Do you feel safe at home: Yes Do you feel safe in your relationship?: Yes Meds Allergies and Home Medications Allergies Allergy/AdvReac Type Severity Reaction Status Date / Time ATUL Inhibitors AdvReac cough Verified 02/16/24 06:29 Home Medications Medication Instructions Recorded Confirmed Type magnesium oxide 250 mg PO DAILY AM 02/25/17 02/16/24 History calcium carbonate 600 mg-vitamin 1 cap PO DAILY 09/03/18 02/16/24 History D3 5 mcg (200 unit) capsule (Calcium 600 + D(3)) albuterol sulfate 90 mcg/actuation 2 puff inhalation Q4H ##0 02/13/19 02/16/24 Rx aerosol inhaler (ProAir HFA) tiotropium bromide 2.5 2 puff inhalation DAILY 05/31/21 02/16/24 History mcg/actuation mist for inhalation (Spiriva Respimat) benzonatate 100 mg capsule 100 mg PO TID PRN PRN 10/06/23 02/16/24 History chlorthalidone 25 mg tablet 12.5 mg PO DAILY 10/06/23 02/16/24 History losartan 100 mg tablet 100 mg PO DAILY 10/08/23 02/16/24 History mirabegron 25 mg tablet,extended 25 mg PO DAILY 10/08/23 02/16/24 History release 24 hr (Myrbetriq) propranolol 80 mg capsule,24 80 mg PO DAILY 10/08/23 02/16/24 History hr,extended release hydrocortisone acetate 25 mg 25 mg [place] BID 10 days #12 ea 10/10/23 02/16/24 Rx rectal suppository omeprazole 20 mg capsule,delayed 40 mg (2 x 20 mg) PO DAILY #0 caps 10/10/23 02/16/24 Rx release Exam Const General: cooperative Resp Effort & Inspection: normal respiratory effort Auscultation: clear to auscultation bilaterally Cardio Rate: regular rate Rhythm: regular rhythm GI Palpation: soft and no masses Neuro General: patient alert and patient awake Results Last Vital Signs Temp 36.6 C 02/16/24 06:31 Pulse 79 02/16/24 06:31 Resp 16 02/16/24 06:31 BP 153/59 H 02/16/24 06:31 Pulse Ox 98 02/16/24 06:31
== END 2024-02-16 06:22 | disposition home or self-care (01) ==
LOC: SUR 06:21
PROVIDERS: PCP Student in an Organized Health Care Education/Training Program; Visit Provider Urology
DX: Z53.09 Procedure and treatment not carried out because of other contraindication (principal)

== ENCOUNTER 2024-02-19 05:48 | Day surgery (SDC) | payer OTHER, MEDICARE, SELFPAY ==
[2024-02-19 06:29] VITALS: BP 172/71; PULSE 89; RESP 20; TEMP 36.7; O2SAT 98
--- NOTE | 2024-02-19 07:00 | W.PM.HP.N ---
Date of service: 02/19/24 Time of Service: 07:00 Assessment and Plan Assessment and plan (1) Bladder cancer: Status: Acute Assessment and plan: We will perform cystoscopy and transurethral resection of his visible tumors. We will then instilled gemcitabine into the bladder. We will leave the gemcitabine for at least an hour following the procedure before draining his bladder and removing his catheter. History of Present Illness History of Present Illness Chief Complaint: Bladder cancer Narrative: This is an 83-year-old gentleman who has a history of low-grade, noninvasive urothelial cell carcinoma of the bladder. He was initially treated with transurethral resection. When he has had a recurrence, he had a transurethral resection and instillation of Mitomycin-C into the bladder. On his most recent surveillance cystoscopy, we again found evidence of tumor recurrence. He presents now for transurethral resection/fulguration and instillation of gemcitabine into the bladder. He has a history of prostate treated with radiation therapy. He has no gross hematuria. Review of Systems Narrative: No fevers or chills Decreased hearing acuity. No vision change or dysphasia No diabetes or thyroid SOB with exertion. No hemoptysis No chest pain or palpitations Bloody stools. Due for colonoscopy. No nausea, vomiting, ulcers, jaundice No seizures, strokes or peripheral neuropathy No bleeding disorders or anemia No gout PFSH All Active Problems (Updated 02/19/24 @ 06:43 by Caitlin Burton) SPENCER (nonalcoholic steatohepatitis) (Chronic) Radiation proctitis (Chronic) Coagulopathy (Chronic) Elevated INR (Acute) Chronic blood loss anemia (Chronic) Chronic radiation proctitis (Chronic) Anal stricture (Acute) Hematochezia (Acute) Cough (Acute) Urgency incontinence (Acute) Bladder cancer (Acute) Mixed hearing loss, bilateral (Acute) History of prostate cancer (Chronic) CKD (chronic kidney disease), stage III (Chronic) Thrombocytopenia (Chronic) Restrictive lung disease (Chronic) 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) PFT impression from August 24, 2018 showed mild restrictive lung disease Hypertension (Chronic) Medical History (Updated 02/19/24 @ 06:43 by Caitlin Burton) GERD (gastroesophageal reflux disease) Otosclerosis of both ears Bronchospasm Community acquired pneumonia of both lungs Rales Listed as basilar rales in PCP chart Fever Acute blood loss anemia Acute urinary retention Hematuria Esophageal varices Carpal tunnel syndrome Cirrhosis of liver Other otosclerosis, bilateral Internal hemorrhoid Gross hematuria Prostate cancer Right carpal tunnel syndrome Surgical History (Updated 02/19/24 @ 06:27 by Caitlin Burton) History of ear surgery S/P endoscopic carpal tunnel release (09/09/18) Family History Mother No problems noted. Father Cardiovascular disease Brother No problems noted. 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 Do you feel safe at home: Yes Do you feel safe in your relationship?: Yes Meds Allergies and Home Medications Allergies Allergy/AdvReac Type Severity Reaction Status Date / Time ATUL Inhibitors AdvReac cough Verified 02/19/24 06:18 Home Medications Medication Instructions Recorded Confirmed Type magnesium oxide 250 mg PO DAILY AM 02/25/17 02/19/24 History calcium carbonate 600 mg-vitamin 1 cap PO DAILY 09/03/18 02/19/24 History D3 5 mcg (200 unit) capsule (Calcium 600 + D(3)) albuterol sulfate 90 mcg/actuation 2 puff inhalation Q4H ##0 02/13/19 02/19/24 Rx aerosol inhaler (ProAir HFA) tiotropium bromide 2.5 2 puff inhalation DAILY 05/31/21 02/19/24 History mcg/actuation mist for inhalation (Spiriva Respimat) benzonatate 100 mg capsule 100 mg PO TID PRN PRN 10/06/23 02/19/24 History chlorthalidone 25 mg tablet 12.5 mg PO DAILY 10/06/23 02/19/24 History losartan 100 mg tablet 100 mg PO DAILY 10/08/23 02/19/24 History mirabegron 25 mg tablet,extended 25 mg PO DAILY 10/08/23 02/19/24 History release 24 hr (Myrbetriq) propranolol 80 mg capsule,24 80 mg PO DAILY 10/08/23 02/19/24 History hr,extended release hydrocortisone acetate 25 mg 25 mg [place] BID 10 days #12 ea 10/10/23 02/19/24 Rx rectal suppository omeprazole 20 mg capsule,delayed 40 mg (2 x 20 mg) PO DAILY #0 caps 10/10/23 02/19/24 Rx release acetaminophen 500 mg tablet 500 mg PO Q6H PRN 02/19/24 02/19/24 History (Tylenol Extra Strength) Exam Const General: cooperative Neck Neck: supple Resp Effort & Inspection: normal respiratory effort Auscultation: clear to auscultation bilaterally Cardio Rate: regular rate Rhythm: regular rhythm GI Palpation: soft and no masses Neuro General: patient alert, patient awake and patient oriented x3 Results Last Vital Signs Temp 36.7 C 02/19/24 06:29 Pulse 89 02/19/24 06:29 Resp 20 02/19/24 06:29 BP 172/71 H 02/19/24 06:29 Pulse Ox 98 02/19/24 06:29 Time Spent Time spent with Patient: <40 minutes Time was spent: other
--- NOTE | 2024-02-19 07:09 | W.ANESPRE ---
General Info Date of Service Date Performed: 02/19/24 Height: 5 ft 6 in Weight: 76.7 kg Body Mass Index (BMI): 27.3 Surgical Procedure: Operation Date: 02/19/24 07:40 Proposed Procedure Side Surgeon p cysto, Transurethral Resection Bladder Tumor Lonnie Saxena MD s Installation Gemcitabine Lonnie Saxena MD Meds Allergies and Home Medications Allergies Allergy/AdvReac Type Severity Reaction Status Date / Time ATUL Inhibitors AdvReac cough Verified 02/19/24 06:18 Home Medication Medication Instructions Recorded magnesium oxide 250 mg PO DAILY AM 02/25/17 calcium carbonate 600 mg-vitamin 1 cap PO DAILY 09/03/18 D3 5 mcg (200 unit) capsule (Calcium 600 + D(3)) albuterol sulfate 90 mcg/actuation 2 puff inhalation Q4H ##0 02/13/19 aerosol inhaler (ProAir HFA) tiotropium bromide 2.5 2 puff inhalation DAILY 05/31/21 mcg/actuation mist for inhalation (Spiriva Respimat) benzonatate 100 mg capsule 100 mg PO TID PRN PRN 10/06/23 chlorthalidone 25 mg tablet 12.5 mg PO DAILY 10/06/23 losartan 100 mg tablet 100 mg PO DAILY 10/08/23 mirabegron 25 mg tablet,extended 25 mg PO DAILY 10/08/23 release 24 hr (Myrbetriq) propranolol 80 mg capsule,24 80 mg PO DAILY 10/08/23 hr,extended release hydrocortisone acetate 25 mg 25 mg [place] BID 10 days #12 ea 10/10/23 rectal suppository omeprazole 20 mg capsule,delayed 40 mg (2 x 20 mg) PO DAILY #0 caps 10/10/23 release acetaminophen 500 mg tablet 500 mg PO Q6H PRN 02/19/24 (Tylenol Extra Strength) Current Visit Medications: Current Medications Generic Name Dose Route Start Last Admin Trade Name Freq PRN Reason Stop Dose Admin Gemcitabine HCl 2 gm/ Sodium 0 gm 02/19/24 06:00 Chloride 50 ml BLADIN 02/19/24 16:00 DIRECTED MAXIMUS Ringer's Solution 1,000 mls @ 80 mls/hr 02/19/24 06:00 IV 03/19/24 23:59 INFUSION MAXIMUS Cefazolin Sodium/Dextrose 2 gm in 50 mls @ 100 mls/hr 02/19/24 06:00 Ancef Duplex IVPB 02/19/24 16:00 PREOP MAXIMUS IV Miscellaneous Supplies 1 each 02/19/24 06:00 Iv Access IV 03/19/24 23:59 DIRECTED MAXIMUS Sodium Chloride 0 ml 02/19/24 06:00 Normal Saline Flush 10 Ml Syr IV 03/19/24 23:59 PRN PRN Sodium Chloride 0 ml 02/19/24 06:00 Normal Saline 10 Ml Vial IJ 03/19/24 23:59 DIRECTED PRN Sterile Water 0 ml 02/19/24 06:00 Water,Injection,Sterile 10 Ml Vial IJ 03/19/24 23:59 DIRECTED PRN PFSH Active Problems Active Problems: Problem Status Onset Code SPENCER (nonalcoholic steatohepatitis) K75.81 Radiation proctitis K62.7 Coagulopathy D68.9 Bright red blood per rectum K62.5 Elevated INR R79.1 Chronic blood loss anemia D50.0 Chronic radiation proctitis K62.7 Anal stricture K62.4 Hematochezia K92.1 Cough R05.9 Urgency incontinence N39.41 Bladder cancer C67.9 Mixed hearing loss, bilateral H90.6 S/P radiation therapy Z92.3 History of prostate cancer Z85.46 CKD (chronic kidney disease), stage III N18.3 Thrombocytopenia D69.6 Restrictive lung disease J98.4 Hypertension I10 Medical History Medical History (Updated 02/19/24 @ 06:43 by Caitlin Burton) GERD (gastroesophageal reflux disease) Otosclerosis of both ears Bronchospasm Community acquired pneumonia of both lungs Rales Listed as basilar rales in PCP chart Fever Acute blood loss anemia Acute urinary retention Hematuria Esophageal varices Carpal tunnel syndrome Cirrhosis of liver Other otosclerosis, bilateral Internal hemorrhoid Gross hematuria Prostate cancer Right carpal tunnel syndrome Surgical History Surgical History (Updated 02/19/24 @ 06:27 by Caitlin Burton) History of ear surgery S/P endoscopic carpal tunnel release (09/09/18) Tobacco Smoking/Tobacco Use Status: Never Alcohol Alcohol Intake: former Year quit: 1994 Substance Use Substance use: Never Substance use type: does not use Vital Signs and Lab Results Vital Signs Most Recent Vital Signs in EMR: Most Recent Vital Signs Temp Pulse Resp BP Pulse Ox 36.7 C 89 20 172/71 H 98 02/19/24 06:29 02/19/24 06:29 02/19/24 06:29 02/19/24 06:29 02/19/24 06:29 Lab Results Blood Type / Crossmatch: No Data to Display Complete Blood Count: No Data to Display Complete Metabolic Panel: No Data to Display Liver Function Panel: No Data to Display Coagulation Panel: No Data to Display Cardiac Panel: No Data to Display Arterial Blood Gas: No Data to Display Venous Blood Gas: No Data to Display Pancreas Panel: No Data to Display Thyroid Panel: No Data to Display Infectious Disease: No Data to Display Blood Cultures: No Data to Display Toxicology Panel: No Data to Display Imaging and Studies Imaging and Studies Study information below may be from another EMR and interpreted by another provider. Please see original notes in EMR for more complete details. EKG Summary: 12/08: sinus rhythm Echocardiogram Summary: 10/10/23: EF 58%, no significant valvular lesions Pulmonary Function Summary: 09/03: mild restrictive disease Anesthesia Assessment and Plan Anesthesia History Personal History: No History of Anesthesia Complications Family History: No Family History of Anesthesia Complications Exercise Tolerance Exercise Tolerance: Metabolic Equivalents>4 Pertinent Negatives Pertinent Negatives: No Major Cardiovascular Symptoms or Complaints and No Major Pulmonary Symptoms or Complaints Cardiac & Pulmonary Exam Cardiac Exam: Normal S1/S2 Heart Sounds Pulmonary Exam: Clear Bilateral Breath Sounds Implantable Cardiac Device Does patient have a Pacemaker or an ICD?: No Airway Exam Known Difficult Airway: No Mallampati Class: 2 Mouth Opening: Normal (> 3cm) Thyromental Distance: Greater than 3 cm Neck Range of Motion: Limited ROM Neck Circumference: Thick Teeth Condition: Removable Dentures/Plates Upper and Edentulous ASA Classification ASA Score: ASA 3 Emergency Case?: No NPO Status NPO Status: NPO Clears >2 hours, Solids >8 hours Anesthesia Plan Resuscitation Status: Full Code Anesthesia Technique: General Anesthesia Airway Planned: Natural Airway Monitors Used: Standard Monitors
[2024-02-19 07:10] VITALS: BMI 27.3
[2024-02-19] MEDS: Lactated Ringers 1,000 ML 80 ML IV (07:12)
[2024-02-19] MEDS: ceFAZolin 2 GM/50 ML BAG IVPB (08:04)
[2024-02-19] MEDS: Lidocaine 2% Jelly 11 ML SYR (08:23)
--- NOTE | 2024-02-19 08:31 | BLADDER_PTH ---
PATIENT: Marleny Martin LOC: [facility] U#:[id number] AGE/SX: 83/M ROOM: RE02/19/[address]: Lonnie Saxena MD : [id number] BED: DIS: 02/19/2024 SPEC #: [id number] RECD: 02/19/24 12:38 STATUS: ROMIE REQ #: [id number] ARAMIS: 02/19/24 08:[address]: Lonnie Saxena DEPT: Surgical Specimen RECD BY: Raissa Nair ENTERED: 02/19/24 12:39 SP TYPE: Bladder OTHR DR: Ulices Simpson Tissues: 1 - BLADDER BIOPSY Procedures: GROSS AND MICRO LEVEL 5 Comments: [id number]
[2024-02-19] MEDS: GEMCITABINE HCL 2 GM, Normal Saline - Diluent 50 ML BLADIN (08:32)
--- NOTE | 2024-02-19 08:38 | W.PM.DSUDISC ---
Date of service: 02/19/24 Time of Service: 08:38 Discharge Plan Disposition Patient Disposition: Home Discharge Details Reason For Visit: bladder tumor Attending Provider: Lonnie Saxena Primary Care Provider: Ulices Simpson Home Meds and New Rx's Prescriptions: No Action magnesium oxide 250 MG tablet 250 mg PO DAILY AM Spiriva Respimat 2.5 mcg/actuation mist 2 puff inhalation DAILY Calcium 600 + D(3) 600 mg calcium- 200 unit Capsule 1 cap PO DAILY albuterol sulfate [ProAir HFA] 8.5 GM HFA aerosol inhaler 2 puff Inhalation Q4H Qty: 0 0RF chlorthalidone 25 mg tablet 12.5 mg PO DAILY Patient Comments: Take 1/2 tablet by mouth once a day with losartan benzonatate 100 mg capsule 100 mg PO TID PRN PRN losartan 100 mg tablet 100 mg PO DAILY propranolol 80 mg capsule,extended release 24 hr 80 mg PO DAILY Patient Comments: Pt states he takes every other day; took 02/17/24 Myrbetriq 25 mg tablet extended release 24 hr 25 mg PO DAILY hydrocortisone acetate 25 mg Suppository 25 mg ME BID 10 Days Qty: 12 1RF omeprazole 20 mg capsule,delayed release(DR/EC) 40 mg PO DAILY Qty: 0 0RF acetaminophen [Tylenol Extra Strength] 500 mg tablet 500 mg PO Q6H PRN Discharge Instructions Additional Instructions: Leave hough clamped with medication in bladder for 1 to 2 hours then unclamp, drain bladder and remove hough unclamp , drain bladder and remove hough sooner if pt has pain/bladder discomfort followup 1 to 2 weeeks for pathology results - can be done by phone if patient prefers Discharge Orders Discharge Orders: Discharge Order (Routine); Ordered 02/19/24 Ordered By: Lonnie Saxena DS: Diagnosis Discharge Diagnosis (1) Bladder cancer: Status: Acute
--- NOTE | 2024-02-19 08:43 | ROE_ITS ---
Date of service: 02/19/24 Time of Service: 08:43 Operative Note Operative Note DATE OF PROCEDURE: 02/19/24 PRE-OP DIAGNOSIS: Bladder cancer POST-OP DIAGNOSIS: same PROCEDURE: cystoscopy, TUR Bladder tumor, instillation of Gemcitabine into bladder SURGEON: Lonnie Saxena ANESTHESIA TYPE: Local By Surgeon and General:No Airway Refer to Anesthesia Record ESTIMATED BLOOD LOSS: 5 PATHOLOGY: other (bladder tumor) COMPLICATIONS: None Patient was transported to: same day Patient's condition: stable Implants: 16 Trin[place] hough with 10 cc sterile water in balloon 2000 mg Gemcitabine instilled into bladder Indications: This is a 83-year-old gentleman who has a history of prostate cancer that was treated with external beam radiation. He then developed gross hematuria and we identified low-grade, noninvasive urothelial cell carcinoma of the bladder. He has had transurethral resections but has had recurrences. On a previous resection, we instilled Mitomycin-C into the bladder immediately after the resection. On his most recent surveillance cystoscopy, we again identified a papillary lesion in the bladder. He presents now for transurethral resection and instillation of gemcitabine into the bladder. Findings: 2 cm papillary tumor posterior bladder wall Procedure Description: The patient was given antibiotics and brought to the operating room on 02/19/2024. After successful induction of general anesthesia, he was placed in the dorsal lithotomy position. His genitalia was prepped and draped. 2% Xylocaine jelly was instilled into the urethra to act as a local anesthetic. 24 Trin[place] resectoscope sheath was passed through the urethra into the bladder. We inspected the urethra using a 30 degree lens and a visual obturator. The pendulous, bulbar and membranous urethra showed no strictures. Just distal to the external sphincter, there were changes consistent with radiation effects. The prostatic urethra was somewhat fixed but we were able to pass the scope through the urethra into the bladder. The bladder was inspected with a 30 degree lens. As was previously identified, papillary lesions were seen posteriorly into the right side of the bladder. Using bipolar cautery and an Rojas resectoscope, we resected the visible tumor. The resected tissue was sent to pathology for permanent section. The base of the resection sites were cauterized using the coagulation current. Once hemostasis had been obtained, the resectoscope was removed. A 16 Trin[place] Hough catheter was passed through the urethra into the bladder. The catheter balloon was inflated with 10 cc of sterile water and the bladder was drained. A solution containing 2 g of gemcitabine mixed and 50 mL of dilute was then instilled into the catheter. The catheter was clamped leaving the solution in place. The patient tolerated this procedure well with no complications.
[2024-02-19 08:45] VITALS: BP 136/57; PULSE 75; RESP 18; TEMP 36.3; O2SAT 97
[2024-02-19] MEDS: Phenazopyridine 200 MG TAB PO (09:01)
[2024-02-19 09:20] VITALS: BP 150/57; PULSE 90; RESP 18; TEMP 36.3; O2SAT 98
--- NOTE | 2024-02-19 10:10 | W.ANESPOSTOP ---
Postoperative Evaluation Date, Time and Location Date Performed: 02/19/24 Time Performed: 09:00 Patient Location: Day Surgery Unit Vital Signs Most Recent Imported Vital Signs: Most Recent Vital Signs Temp Pulse Resp BP Pulse Ox 36.3 C L 75 18 150/57 H 97 02/19/24 08:45 02/19/24 08:45 02/19/24 08:45 02/19/24 09:20 02/19/24 08:45 Pain Score Most Recent Pain Score: Most Recent Pain Score Pain Level 2 02/19/24 08:45 Assessment Mental Status: Awake (Alert & Oriented to Patient Baseline) Airway and Respiratory Function: Patent airway with normal (patient baseline) respiratory exam Cardiovascular Function: Hemodynamically Stable Hydration Status: Adequately Hydrated Nausea & Vomiting: No Nausea or Vomiting Pain: Pt. Denies Any Pain Peripheral Nerve Block: Patient did not receive a nerve block
== END 2024-02-19 10:05 | disposition home or self-care (01) ==
PROVIDERS: PCP Student in an Organized Health Care Education/Training Program; Visit Provider Urology
PROC: 0TBB8ZZ Excision of Bladder, Via Natural or Artificial Opening Endoscopic (ICD-10-PCS; CPT 52234; principal; 2024-02-19 07:30)
PROC: (CPT 52234; 2024-02-19 07:30)
DX: C67.9 Malignant neoplasm of bladder, unspecified (principal)
CPT/HCPCS: 52234; 88305; 88307; J0690; J1100; J2001; J2405; J2704; J3010; J9201

== ENCOUNTER 2024-03-15 14:31 | Outpatient (REF) | payer OTHER, MEDICARE, SELFPAY ==
[2024-03-15 15:44] LABS: Abs Immature Grans 0.01 10^3/uL (0.0-0.06); Absolute Basophil Count 0.04 10^3/uL (0.0-0.2); Absolute Eosinophil Count 0.21 10^3/uL (0.0-0.7); Absolute Lymphocyte Count 0.46 10^3/uL (1.2-3.4); Absolute Monocyte Count 0.28 10^3/uL (0.1-0.8); Absolute Neutrophil Count 2.05 10^3/uL (1.2-6.7); Basophils % 1.3; Eosinophils % 6.9; HCT 29.5 % (40.0-50.0); HGB 9.4 g/dL (13.5-17.5); Immature Grans % 0.3; Lymphocytes % 15.1; MCH 29.7 pg (27.0-33.0); MCHC 31.9 % (32.0-36.0); MCV 93 fL (80-95); Monocytes % 9.2; Neutrophils % 67.2; RBC 3.17 10^6/uL (4.36-5.78); RDW 14.6 % (11.8-14.1); RDW-SD 50.1 fL; WBC 3.05 10^3/uL (4.4-10.8)
[2024-03-15 16:19] LABS: ALT 27 U/L (16-63); AST 32 U/L (15-37); Albumin 2.3 g/dL (3.4-5.0); Alkaline Phosphatase 193 U/L (46-116); Anion Gap 10.3 mmol/L (3-11); BUN 19 mg/dL (7-18); Bilirubin, Total 0.8 mg/dL (0.2-1.0); CO2 21.7 mmol/L (21.0-32.0); CREATININE 1.6 mg/dL (0.70-1.30); Calcium 7.9 mg/dL (8.5-10.1); Chloride 108 mmol/L (98-107); Estimated GFR 43.02 (mL/min/1.73m2); Ferritin 60 ng/mL (26-388); Glucose 191 mg/dL (74-106); Iron 84 ug/dL (65-175); Magnesium 1.9 mg/dL (1.8-2.4); Potassium 4.1 mmol/L (3.5-5.1); Sodium 140 mmol/L (136-145); TSH (W/Ref FT4) 1.19 uIU/mL (0.36-3.74); Total Iron Binding Capacity 225 ug/dL (250-450); Transferrin Sat 37 % (20-55)
[2024-03-15 16:27] LABS: Platelet Count 75 10^3/uL (130-400)
== END 2024-03-15 14:32 | disposition home or self-care (01) ==
LOC: NCHCN 14:31
PROVIDERS: PCP Student in an Organized Health Care Education/Training Program; Visit Provider Student in an Organized Health Care Education/Training Program
DX: D64.9 Anemia, unspecified (principal); E83.42 Hypomagnesemia
CPT/HCPCS: 80053; 82728; 83540; 83550; 83735; 84443; 85025

== ENCOUNTER 2024-03-24 09:00 | Outpatient (REF) | payer OTHER, MEDICARE, SELFPAY ==
[2024-03-24 15:48] LABS: ALT 27 U/L (16-63); AST 33 U/L (15-37); Albumin 2.3 g/dL (3.4-5.0); Alkaline Phosphatase 195 U/L (46-116); Anion Gap 10.4 mmol/L (3-11); BUN 24 mg/dL (7-18); Bilirubin, Total 0.7 mg/dL (0.2-1.0); CO2 22.6 mmol/L (21.0-32.0); CREATININE 1.6 mg/dL (0.70-1.30); Calcium 8.3 mg/dL (8.5-10.1); Chloride 111 mmol/L (98-107); Estimated GFR 43.02 (mL/min/1.73m2); GGT 162 U/L (15-85); Glucose 104 mg/dL (74-106); Potassium 4.3 mmol/L (3.5-5.1); Sodium 144 mmol/L (136-145); Total Protein 7.2 g/dL (6.4-8.2)
== END 2024-03-24 09:01 | disposition home or self-care (01) ==
LOC: NCHCN 09:00
PROVIDERS: PCP Student in an Organized Health Care Education/Training Program; Visit Provider Student in an Organized Health Care Education/Training Program
DX: R74.8 Abnormal levels of other serum enzymes (principal)
CPT/HCPCS: 80053; 82977

== ENCOUNTER → 2024-04-05 14:47 | Outpatient (BNVA) | payer OTHER, MEDICARE, SELFPAY | PROVIDERS: PCP Student in an Organized Health Care Education/Training Program; Referring Provider Student in an Organized Health Care Education/Training Program; Visit Provider Urology | DX: C67.9 Malignant neoplasm of bladder, unspecified (principal) | CPT/HCPCS: 51720; 81003; J9201 ==

== ENCOUNTER → 2024-04-19 14:31 | Outpatient (BNVA) | payer OTHER, MEDICARE, SELFPAY | PROVIDERS: PCP Student in an Organized Health Care Education/Training Program; Visit Provider Urology | DX: C67.9 Malignant neoplasm of bladder, unspecified (principal); Z92.3 Personal history of irradiation; Z85.46 Personal history of malignant neoplasm of prostate | CPT/HCPCS: 51720; J9201 ==

== ENCOUNTER → 2024-04-26 14:20 | Outpatient (BNVA) | payer OTHER, MEDICARE, SELFPAY | PROVIDERS: PCP Student in an Organized Health Care Education/Training Program; Visit Provider Urology | DX: C67.9 Malignant neoplasm of bladder, unspecified (principal); Z85.46 Personal history of malignant neoplasm of prostate | CPT/HCPCS: 51720; 81003; J9201 ==

== ENCOUNTER → 2024-05-03 14:41 | Outpatient (BNVA) | payer OTHER, MEDICARE, SELFPAY | PROVIDERS: PCP Student in an Organized Health Care Education/Training Program; Visit Provider Urology | DX: C67.9 Malignant neoplasm of bladder, unspecified (principal); N39.41 Urge incontinence | CPT/HCPCS: 51720; 81003; J9201 ==

== ENCOUNTER → 2024-05-10 14:34 | Outpatient (BNVA) | payer OTHER, MEDICARE, SELFPAY | PROVIDERS: PCP Student in an Organized Health Care Education/Training Program; Visit Provider Urology | DX: C67.9 Malignant neoplasm of bladder, unspecified (principal) | CPT/HCPCS: 51720; 81003; J9201 ==

== ENCOUNTER → 2024-05-17 14:40 | Outpatient (BNVA) | payer OTHER, MEDICARE, SELFPAY | PROVIDERS: PCP Student in an Organized Health Care Education/Training Program; Visit Provider Urology | DX: C67.9 Malignant neoplasm of bladder, unspecified (principal) | CPT/HCPCS: 51720; 81003; J9201 ==

== ENCOUNTER → 2024-07-05 13:39 | Outpatient (BNVA) | payer OTHER, MEDICARE, SELFPAY | PROVIDERS: PCP Student in an Organized Health Care Education/Training Program; Referring Provider Student in an Organized Health Care Education/Training Program; Visit Provider Urology | DX: C67.9 Malignant neoplasm of bladder, unspecified (principal) | CPT/HCPCS: 52000 ==

== ENCOUNTER 2024-07-26 06:05 | Observation (INO) | payer OTHER, MEDICARE, SELFPAY ==
[2024-07-26] VITALS (16 sets, daily range): BP systolic 124–168; BP diastolic 53–105; PULSE 70–97; RESP 13–25; TEMP 35.9–36.7; O2SAT 95–98; BMI 27.4
--- NOTE | 2024-07-26 06:20 | W.ANESPRE ---
General Info Date of Service Date Performed: 07/26/24 Height: 5 ft 6 in Weight: 77.111 kg Body Mass Index (BMI): 27.4 Surgical Procedure: Operation Date: 07/26/24 07:40 Proposed Procedure Side Surgeon p cysto, Transurethral Resection Bladder Tumor Lonnie Saxena MD Meds Allergies and Home Medications Allergies Allergy/AdvReac Type Severity Reaction Status Date / Time ATUL Inhibitors AdvReac cough Verified 07/26/24 06:17 Home Medication ?Medication ?Instructions ?Recorded magnesium oxide 250 mg PO DAILY AM 02/25/17 calcium carbonate 600 mg-vitamin 1 cap PO DAILY 09/03/18 D3 5 mcg (200 unit) capsule (Calcium 600 + D(3)) albuterol sulfate 90 mcg/actuation 2 puff inhalation Q4H ##0 02/13/19 aerosol inhaler (ProAir HFA) tiotropium bromide 2.5 2 puff inhalation DAILY 05/31/21 mcg/actuation mist for inhalation (Spiriva Respimat) losartan 100 mg tablet 100 mg PO DAILY 10/08/23 mirabegron 25 mg tablet,extended 25 mg PO DAILY 10/08/23 release 24 hr (Myrbetriq) propranolol 80 mg capsule,24 80 mg PO DAILY 10/08/23 hr,extended release omeprazole 20 mg capsule,delayed 40 mg (2 x 20 mg) PO DAILY #0 caps 10/10/23 release acetaminophen 500 mg tablet 500 mg PO Q6H PRN 02/19/24 (Tylenol Extra Strength) chlorthalidone 25 mg tablet 12.5 mg PO Q OTHER DAY 03/11/24 Current Visit Medications: Current Medications Generic Name Dose Route Start Last Admin Trade Name Freq PRN Reason Stop Dose Admin Ringer's Solution 1,000 mls @ 80 mls/hr 07/26/24 06:00 IV 08/22/24 23:59 INFUSION MAXIMUS Cefazolin Sodium/Dextrose 2 gm in 50 mls @ 100 mls/hr 07/26/24 06:00 Ancef Duplex IVPB 07/26/24 16:00 PREOP MAXIMUS IV Miscellaneous Supplies 1 each 07/26/24 06:00 Iv Access IV 08/22/24 23:59 DIRECTED MAXIMUS Sodium Chloride 0 ml 07/26/24 06:00 Normal Saline Flush 10 Ml Syr IV 08/22/24 23:59 PRN PRN Sodium Chloride 0 ml 07/26/24 06:00 Normal Saline 10 Ml Vial IJ 08/22/24 23:59 DIRECTED PRN Sterile Water 0 ml 07/26/24 06:00 Water,Injection,Sterile 10 Ml Vial IJ 08/22/24 23:59 DIRECTED PRN PFSH Active Problems Active Problems: Problem Status Onset Code SPENCER (nonalcoholic steatohepatitis) Chronic K75.81 Radiation proctitis Chronic K62.7 Coagulopathy Chronic D68.9 Bright red blood per rectum Resolved K62.5 Elevated INR Acute R79.1 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 Chronic radiation proctitis Chronic K62.7 Anal stricture Acute K62.4 Hematochezia Acute K92.1 Cough Acute R05.9 Urgency incontinence Acute N39.41 Bladder cancer Acute C67.9 Mixed hearing loss, bilateral Acute H90.6 S/P radiation therapy Resolved Z92.3 History of prostate cancer Chronic Z85.46 CKD (chronic kidney disease), stage III Chronic N18.3 Thrombocytopenia Chronic D69.6 Restrictive lung disease Chronic J98.4 Hypertension Chronic I10 Medical History Medical History (Updated 07/22/24 @ 13:47 by Rey Pradhan) COPD (chronic obstructive pulmonary disease) GERD (gastroesophageal reflux disease) Otosclerosis of both ears Bronchospasm Community acquired pneumonia of both lungs Rales Listed as basilar rales in PCP chart Fever Acute blood loss anemia Acute urinary retention Hematuria Esophageal varices Carpal tunnel syndrome Cirrhosis of liver Other otosclerosis, bilateral Internal hemorrhoid Gross hematuria Prostate cancer Right carpal tunnel syndrome Surgical History Surgical History History of ear surgery S/P endoscopic carpal tunnel release (09/09/18) Tobacco Smoking/Tobacco Use Status: Never Alcohol Alcohol Intake: former Year quit: 1994 Substance Use Substance use: Never Substance use type: does not use Vital Signs and Lab Results Vital Signs Most Recent Vital Signs in EMR: Temp Pulse Resp BP Pulse Ox 36.7 C 72 18 149/58 H 98 07/26/24 06:22 07/26/24 06:22 07/26/24 06:22 07/26/24 06:22 07/26/24 06:22 Lab Results Blood Type / Crossmatch: No Data to Display Complete Blood Count: No Data to Display Complete Metabolic Panel: No Data to Display Liver Function Panel: No Data to Display Coagulation Panel: No Data to Display Cardiac Panel: No Data to Display Arterial Blood Gas: No Data to Display Venous Blood Gas: No Data to Display Pancreas Panel: No Data to Display Thyroid Panel: No Data to Display Infectious Disease: No Data to Display Blood Cultures: No Data to Display Toxicology Panel: No Data to Display Imaging and Studies Imaging and Studies Study information below may be from another EMR and interpreted by another provider. Please see original notes in EMR for more complete details. EKG Summary: 12/08: sinus rhythm Echocardiogram Summary: 10/10/23: EF 58%, no significant valvular lesions Pulmonary Function Summary: 09/03: mild restrictive disease Anesthesia Assessment and Plan Anesthesia History Personal History: No History of Anesthesia Complications Family History: No Family History of Anesthesia Complications Exercise Tolerance Exercise Tolerance: Metabolic Equivalents>4 (difficult to assess in setting of COPD ) Pertinent Negatives Pertinent Negatives: No Symptoms of GERD Cardiac & Pulmonary Exam Cardiac Exam: Normal S1/S2 Heart Sounds Pulmonary Exam: Clear Bilateral Breath Sounds Implantable Cardiac Device Does patient have a Pacemaker or an ICD?: No Airway Exam Known Difficult Airway: No Mallampati Class: 2 Mouth Opening: Normal (> 3cm) Thyromental Distance: Greater than 3 cm Neck Range of Motion: Limited ROM Neck Circumference: Thick Teeth Condition: Removable Dentures/Plates Upper and Edentulous ASA Classification ASA Score: ASA 3 Emergency Case?: No NPO Status NPO Status: NPO Clears >2 hours, Solids >8 hours Anesthesia Plan Resuscitation Status: Full Code Anesthesia Technique: General Anesthesia Airway Planned: Natural Airway Monitors Used: Standard Monitors
--- NOTE | 2024-07-26 06:51 | W.PM.HP.N ---
Date of service: 07/26/24 Time of Service: 06:51 Assessment and Plan Assessment and plan (1) Bladder cancer: Status: Acute Assessment and plan: We will plan for cystoscopy and transurethral resection of his visible bladder tumor. A plan on keeping him here in the hospital overnight for continuous bladder irrigation. His follow-up treatment would really depend on his surgical pathology. History of Present Illness History of Present Illness Chief Complaint: Bladder cancer Narrative: This is an 84-year-old gentleman who has a history of prostate cancer. He was treated with external beam radiation. He developed gross hematuria and clot retention. 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 Initially, his tumor was low-grade and noninvasive. His most recent pathology showed a low-grade urothelial cell carcinoma with involvement of the lamina propria. He has completed an induction series of intravesical gemcitabine. On surveillance cystoscopy, we did find evidence of tumor recurrence. He presents now for transurethral resection of his bladder tumor. The patient lives alone and we have made arrangements to keep him here in the hospital overnight for observation. Review of Systems Narrative: No fevers or chills Decreased hearing acuity. No vision change or dysphasia No diabetes or thyroid dysfunction No shortness of breath, cough or hemoptysis No chest pain or palpitations GERD. Radiation proctitis. No nausea, vomiting, ulcers, jaundice No seizures, strokes or peripheral neuropathy No gout 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) PFT impression from August 24, 2018 showed mild restrictive lung disease Hypertension (Chronic) Medical History (Updated 07/22/24 @ 13:47 by Rey Pradhan) COPD (chronic obstructive pulmonary disease) GERD (gastroesophageal reflux disease) Otosclerosis of both ears Bronchospasm Community acquired pneumonia of both lungs Rales Listed as basilar rales in PCP chart Fever Acute blood loss anemia Acute urinary retention Hematuria Esophageal varices Carpal tunnel syndrome Cirrhosis of liver Other otosclerosis, bilateral Internal hemorrhoid Gross hematuria Prostate cancer Right carpal tunnel syndrome Surgical History History of ear surgery S/P endoscopic carpal tunnel release (09/09/18) Family History Mother No problems noted. Father Cardiovascular disease Brother No problems noted. 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 Do you feel safe at home: Yes Additional Social history: Live alone Meds Allergies and Home Medications Allergies Allergy/AdvReac Type Severity Reaction Status Date / Time ATUL Inhibitors AdvReac cough Verified 07/26/24 06:17 Home Medications ?Medication ?Instructions ?Recorded ?Confirmed ?Type magnesium oxide 250 mg PO DAILY AM 02/25/17 07/26/24 History calcium carbonate 600 mg-vitamin 1 cap PO DAILY 09/03/18 07/26/24 History D3 5 mcg (200 unit) capsule (Calcium 600 + D(3)) albuterol sulfate 90 mcg/actuation 2 puff inhalation Q4H ##0 02/13/19 07/22/24 Rx aerosol inhaler (ProAir HFA) tiotropium bromide 2.5 2 puff inhalation DAILY 05/31/21 07/26/24 History mcg/actuation mist for inhalation (Spiriva Respimat) losartan 100 mg tablet 100 mg PO DAILY 10/08/23 07/26/24 History mirabegron 25 mg tablet,extended 25 mg PO DAILY 10/08/23 07/22/24 History release 24 hr (Myrbetriq) propranolol 80 mg capsule,24 80 mg PO DAILY 10/08/23 07/26/24 History hr,extended release omeprazole 20 mg capsule,delayed 40 mg (2 x 20 mg) PO DAILY #0 caps 10/10/23 07/26/24 Rx release acetaminophen 500 mg tablet 500 mg PO Q6H PRN 02/19/24 07/26/24 History (Tylenol Extra Strength) chlorthalidone 25 mg tablet 12.5 mg PO Q OTHER DAY 03/11/24 07/26/24 History Exam Const General: cooperative Neck Neck: supple Resp Effort & Inspection: normal respiratory effort Auscultation: clear to auscultation bilaterally Cardio Rate: regular rate Rhythm: regular rhythm GI Palpation: soft and no masses Neuro General: patient alert, patient awake and patient oriented x3 Results Last Vital Signs Temp 36.7 C 07/26/24 06:22 Pulse 72 07/26/24 06:22 Resp 18 07/26/24 06:22 BP 149/58 H 07/26/24 06:22 Pulse Ox 98 07/26/24 06:22 Time Spent Time spent with Patient: <40 minutes Time was spent: other
[2024-07-26] MEDS: Lactated Ringers 1,000 ML 80 ML IV ×4 (06:58→23:39)
[2024-07-26] MEDS: ceFAZolin 2 GM/50 ML BAG IVPB (07:40)
[2024-07-26] MEDS: Lidocaine 2% Jelly 6 ML SYR (07:50)
--- NOTE | 2024-07-26 07:50 | BLADDER_PTH ---
PATIENT: Marleny Martin LOC: [id number]#:[id number] AGE/SX: 84/M ROOM: 225 RE07/26/[address]: Lonnie Saxena MD : [id number] BED: A DIS: 07/27/2024 SPEC #: [id number] RECD: 07/26/24 12:37 STATUS: ROMIE REQ #: [id number] ARAMIS: 07/26/24 07:[address]: Lonnie Saxena DEPT: Surgical Specimen RECD BY: Raissa Nair ENTERED: 07/26/24 12:38 SP TYPE: Bladder OTHR DR: Ulices Simpson Tissues: 1 - BLADDER BIOPSY Procedures: GROSS AND MICRO LEVEL 4 Comments: [id number]
--- NOTE | 2024-07-26 08:03 | ROE_ITS ---
Date of service: 07/26/24 Time of Service: 08:03 Operative Note Operative Note DATE OF PROCEDURE: 07/26/24 PRE-OP DIAGNOSIS: Bladder cancer POST-OP DIAGNOSIS: same PROCEDURE: cystoscopy with TUR Bladder tumor (less than 2 cm) SURGEON: Lonnie Saxena ANESTHESIA TYPE: Local By Surgeon and General:No Airway Refer to Anesthesia Record ESTIMATED BLOOD LOSS: 5 PATHOLOGY: other (bladder tumor) COMPLICATIONS: None Patient was transported to: PACU Patient's condition: stable Implants: 20 Martiniquais coude tipped irrigation catheter with 30 cc sterile water in balloon Indications: This is an 84-year-old gentleman who has a history of urothelial cell carcinoma of the bladder. His initial tumors were low-grade and noninvasive. Recently, his tumor was low-grade but involve the lamina propria. We were unable to obtain BCG treatments, so he had completed an induction series of intravesical gemcitabine. He had 2 areas of recurrence on surveillance cystoscopy. He presents now for transurethral resection Findings: two small (less than 2 cm) papillary lesions - one at left bladder neck and second on posterior bladder wall Procedure Description: The patient was given some IV antibiotics and brought to the operating room on 07/26/2024. After successful induction of general anesthesia without intubation, he was placed in the dorsal lithotomy position. His genitalia was prepped with Betadine. 2% Xylocaine jelly was instilled into the urethra to act as a local anesthetic. A 24 Martiniquais resectoscope sheath was passed through the urethra into the bladder. The urethra and bladder were inspected with the 30 degree lens. As previously described on our office cystoscopy, we identified 2 papillary areas in the bladder. The first was at the left bladder neck and the second was on the right posterior bladder wall near previous scar. We utilized bipolar cautery and an NGDATA resectoscope to resect both of these areas. The resected tissue was evacuated and sent to pathology for permanent section. The resection sites were cauterized to achieve hemostasis. The resectoscope was then removed. A 20 Martiniquais hematuria catheter was passed through the urethra into the bladder. The catheter balloon was inflated with 30 cc of sterile water and continuous bladder irrigation with saline was then begun. The catheter was hooked to gravity drainage. The patient was taken to the recovery room in stable condition.
[2024-07-26] MEDS: Bacitracin 1 PACKET (08:05)
[2024-07-26] MEDS: Acetaminophen 325 MG TAB 650 MG PO (09:18)
[2024-07-26] MEDS: Losartan 50 MG TAB 100 MG PO (09:19)
[2024-07-26] MEDS: Propranolol 80 MG CAPCR PO (09:19)
[2024-07-26] MEDS: Calcium 600mg/Vit D 200U TAB 1 TAB PO (09:19)
[2024-07-26] MEDS: Mirabegron 25 MG TABCR PO (09:19)
[2024-07-26] MEDS: Oxybutynin 5 MG TAB PO (09:19)
[2024-07-26] MEDS: Tiotropium Bromide-Respimat 10 PUFF INH 2 PUFF IH (11:52)
--- NOTE | 2024-07-26 13:48 | PHA.REVIEW2 ---
Pharmacy Admission Review Admission Clinical Review Admission Pharmacy Review: Bladder cancer (Acute) ATUL Inhibitors Adverse Reaction (Verified 07/26/24 06:17) cough Resuscitation Status Full Code Height 5 ft 5 in Weight 74.4 kg Comments Comments/Follow Ups: POD #0 - keeping over night for observation per H+P Pharmacy Admission Review Renal Dosing Medications needing adjustments: Reviewed (CrCl 33.5 mL/min) List of meds needing interventions: Current medications are okay Anticoagulation DVT Prophylaxis: Reviewed (SCDs) Relevant Labs Electrolytes, C-Reactive P, ESR: Reviewed (No labs for today) Cardiac Review Cardiac Review: Blood Pressure 153/78 1231 Blood Pressure 160/78 1056 Blood Pressure 145/73 0954 Blood Pressure 142/90 0922 Blood Pressure 124/105 0850 Blood Pressure 158/58 0826 Blood Pressure 158/58 0826 Blood Pressure 142/53 0821 Blood Pressure 142/53 0821 Blood Pressure 152/57 0816 Blood Pressure 141/63 0811 Blood Pressure 149/58 0622 BP, HR, EF%: Reviewed (HR WNL) List meds needing interventions: Patient is on propranolol 80mg daily, losartan 100mg daily and chlorthalidone 12.5mg every other day QTc Review QTc: Reviewed (378 from 10/06/23 - most recent EKG on file) IV to PO Switch IV Medications: Reviewed Home Meds Home Med List reviewed: Intervened Relevent Home Meds Not ordered & why?: Called nursing to confirm what days the patient takes chlorthalidone (every other day). Nursing confirmed that next dose will be due tomorrow. I set order to begin tomorrow morning. Current Meds Current Medication Order Review: Intervened Pharmacy Antibiotic Review Relevant Labs: Comments Comments/Follow Ups: POD #0 - keeping over night for observation per H+P
--- NOTE | 2024-07-26 14:14 | TELEFU_ITS ---
Date of service: 07/26/24 Time of Service: 14:00 Nutrition Note NOTE: Marleny admitted for bladder cancer with cystoscopy procedure performed today. History of prostate cancer with current radiation-induced proctitis. States he moved his bowels yesterday but tried twice today with straining with no result. PMH significant for CKD3, HTN. Pt denies food allergies, difficulties with chewing and swallowing, special food/nutrition needs from kitchen. Regular diet ordered with normal cons istencies. Pt denies significant weight loss relayed his likes (ice cream especially) Diet at baseline assessed as low in produce/fiber per pt interview. Pt ordered for colace and MOM for stooling difficulties Encouraged pt to work slow to increase fiber, especially soluble fiber from oats, fruit, legumes. PT anticipates discharge 08/26. Informed patient of outpatient nutrition services should he like more support in menu planning. Time Spent in Nutritional Counseling and Treatment: 10 min
--- NOTE | 2024-07-26 14:57 | NUR.NOTE ---
Nursing Note: I have reviewed the daily documentation for this patient, including auxillary assessments, and agree with this documentation.
--- NOTE | 2024-07-26 15:31 | W.ANESPOSTOP ---
Postoperative Evaluation Date, Time and Location Date Performed: 07/26/24 Time Performed: 15:32 Patient Location: Med/Surg Vital Signs Most Recent Imported Vital Signs: Most Recent Vital Signs Temp Pulse Resp BP Pulse Ox 36.2 C L 79 18 168/80 H 95 07/26/24 15:19 07/26/24 15:19 07/26/24 15:19 07/26/24 15:19 07/26/24 15:19 Pain Score Most Recent Pain Score: Most Recent Pain Score Pain Level 0 07/26/24 08:50 Assessment Mental Status: Awake (Alert & Oriented to Patient Baseline) Airway and Respiratory Function: Patent airway with normal (patient baseline) respiratory exam Cardiovascular Function: Hemodynamically Stable Hydration Status: Adequately Hydrated Nausea & Vomiting: No Nausea or Vomiting Pain: Pt. Denies Any Pain Peripheral Nerve Block: Patient did not receive a nerve block
[2024-07-26] MEDS: Docusate Sodium 100 MG CAP PO (19:46)
[2024-07-27 07:21] VITALS: BP 140/59; PULSE 73; RESP 19; TEMP 36.8; O2SAT 100
--- NOTE | 2024-07-27 07:29 | W.PM.PROGNOT ---
Date of Service Date of service: 07/27/24 Time of Service: 07:29 Assessment and Plan Assessment and plan (1) Bladder cancer: Status: Acute Assessment and plan: We will remove his Gardner catheter and discontinue his bladder irrigation. We would discontinue his IV fluids. He can go home later today and we will follow up in 1 to 2 weeks to review his surgical pathology. Subjective Subjective Interval history since last seen: He was comfortable overnight with a few bladder spasms but no other significant pain. He had no clot retention. He is tolerating oral nutrition and medications Exam Narrative Exam Narrative: He appears comfortable His vital signs are documented elsewhere His bladder irrigation is clear He is awake and alert Objective Last Vital Signs Temp 36.8 C 07/27/24 07:21 Pulse 73 07/27/24 07:21 Resp 19 07/27/24 07:21 BP 140/59 L 07/27/24 07:21 Pulse Ox 100 07/27/24 07:21 Time Spent with Patient Time Spent with Patient: <25 minutes Time was spent: preparing to see the patient(eg.review tests), obtaining and/or reviewing separately otained hiistory and counseling the patient
--- NOTE | 2024-07-27 07:31 | DSE_ITS ---
Date of service: 07/27/24 Time of Service: 07:31 DS: Diagnosis Discharge Diagnosis (1) Bladder cancer: Status: Acute Discharge Plan Disposition Patient Disposition: Home Condition: Stable Discharge Details Reason For Visit: Bladder Cancer Admit Date/Time: 07/26/24 06:05 Admit Provider: Lonnie Saxena Attending Provider: Lonnie Saxena Primary Care Provider: Ulices Simpson Hospital Course Hospital Course: The patient was admitted and taken to the operating room on 07/26/2024. He underwent cystoscopy and transurethral resection of 2 small bladder tumors. Following the procedure, an irrigating catheter was left in place. Continuous bladder irrigation was begun and the patient was brought to the medical surgical unit. We maintained bladder irrigation for 24 hours. On postoperative day #1, the irrigant was clear. There is no signs of urinary retention. He was able to tolerate oral nutrition and medications. He is ready for discharge on postoperative day #1 Home Meds and New Rx's Prescriptions: No Action chlorthalidone 25 mg tablet 12.5 mg PO Q OTHER DAY Patient Comments: Take 1/2 tablet by mouth once a day with losartan magnesium oxide 250 MG tablet 250 mg PO DAILY AM Spiriva Respimat 2.5 mcg/actuation mist 2 puff inhalation DAILY Calcium 600 + D(3) 600 mg calcium- 200 unit Capsule 1 cap PO DAILY albuterol sulfate [ProAir HFA] 8.5 GM HFA aerosol inhaler 2 puff Inhalation Q4H Qty: 0 0RF losartan 100 mg tablet 100 mg PO DAILY propranolol 80 mg capsule,extended release 24 hr 80 mg PO DAILY Patient Comments: Pt states he takes every other day; took 02/17/24 mirabegron [Myrbetriq] 25 mg tablet extended release 24 hr 25 mg PO DAILY omeprazole 20 mg capsule,delayed release(DR/EC) 40 mg PO DAILY Qty: 0 0RF acetaminophen [Tylenol Extra Strength] 500 mg tablet 500 mg PO Q6H PRN Discharge Instructions Additional Instructions: Follow-up appointment in 1 to 2 weeks to review his surgical pathology Call the office tomorrow if he still have not been able to move your bowels, we can send in a laxative if needed No lifting or straining for 1 week-I have provided you a return to work note for Thursday 08/02 Stand Alone Forms: Nursing Discharge Form Referrals: Ulices Simpson [Primary Care Provider] - Activity:: No lifting over 10 pounds Equipment/Supplies:: No Equipment Needed Diet:: As Tolerated Discharge Orders Discharge Orders: Discharge Order (Routine); Ordered 07/27/24 Ordered By: Lonnie Saxena DS: Summary Time Spent with Patient providing and/or coordinating discharge services: Less than 30 minutes Status at Discharge Functional status at discharge: independent ambulation Overall status at discharge: patient is back to baseline Mental Status: mental status grossly normal Speech and Movement: speech and movement normal Mood: congruent mood Affect: normal affect Quality:SDOH Health Related Social Needs: Health related social needs risk of homeless Exam Narrative Exam Narrative: On the morning of discharge, he looks well His vital signs are documented elsewhere His chest wall motion is normal. He is not short of breath at rest. His abdomen is soft with no guarding or rebound tenderness. His Gardner catheter was draining clear irrigant. The catheter was subsequently removed He is awake and alert Psych Mental Status: mental status grossly normal Speech and Movement: speech and movement normal Mood: congruent mood Affect: normal affect DS: Data Vitals/I&O Vitals and I&O: Vital Signs Temperature 36.8 C 07/27/24 07:21 Temperature Source Skin 07/27/24 07:21 Pulse 73 07/27/24 07:21 Pulse Rhythm Regular 07/26/24 11:18 Pulse 74 07/26/24 08:30 Respiratory Rate 19 07/27/24 07:21 Respiratory Effort Normal, Non-Labored 07/26/24 11:18 Respiratory Depth Normal 07/26/24 11:18 Respiratory Pattern Normal 07/26/24 11:18 Blood Pressure 140/59 L 07/27/24 07:21 Blood Pressure Mean 84 07/26/24 08:26 Pulse Oximetry 100 07/27/24 07:21 Respiratory End-tidal CO2 36 07/26/24 08:21 Oxygen Delivery Method Room Air 07/27/24 07:21 Oxygen Flow Rate 0 07/27/24 07:21 Pain Level 0 07/27/24 07:21 Comment RN Notified 07/26/24 23:34 Intake & Output 07/26/24 07/26/24 07/27/24 11:59 23:59 11:59 Intake Total 930 / 3044.667 2114.667 / 3044.667 914.667 / 914.667 Balance 930 / 3044.667 2114.667 / 3044.667 914.667 / 914.667 Weight 74.4 kg Intake: IV 450 / 2384.667 1934.667 / 2384.667 914.667 / 914.667 Oral 480 / 660 180 / 660 Other: Urine Color Pale Pale Pale Straw Urine Appearance Clear Emesis Description None PFSH All Active Problems (Updated 07/22/24 @ 13:47 by Rey Pradhan) SPENCER (nonalcoholic steatohepatitis) (Chronic) Radiation proctitis (Chronic) Coagulopathy (Chronic) Elevated INR (Acute) Chronic blood loss anemia (Chronic) Chronic radiation proctitis (Chronic) Anal stricture (Acute) Hematochezia (Acute) Cough (Acute) Urgency incontinence (Acute) Bladder cancer (Acute) Mixed hearing loss, bilateral (Acute) History of prostate cancer (Chronic) CKD (chronic kidney disease), stage III (Chronic) Thrombocytopenia (Chronic) Restrictive lung disease (Chronic) 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 as 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 with 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 employment ([employer]) PFT impression from August 24, 2018 showed mild restrictive lung disease Hypertension (Chronic) Medical History (Updated 07/22/24 @ 13:47 by Rey Pradhan) COPD (chronic obstructive pulmonary disease) GERD (gastroesophageal reflux disease) Otosclerosis of both ears Bronchospasm Community acquired pneumonia of both lungs Rales Listed as basilar rales in PCP chart Fever Acute blood loss anemia Acute urinary retention Hematuria Esophageal varices Carpal tunnel syndrome Cirrhosis of liver Other otosclerosis, bilateral Internal hemorrhoid Gross hematuria Prostate cancer Right carpal tunnel syndrome Surgical History History of ear surgery S/P endoscopic carpal tunnel release (09/09/18) Family History Mother No problems noted. Father Cardiovascular disease Brother No problems noted. 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
--- NOTE | 2024-07-27 07:32 | PDOC.CMIN ---
Date of service: 07/27/24 Time of Service: 07:33 Care Management Initial Assmt Initial Assessment Reason for Hospitalization: Bladder Cancer; Cystoscopy with TUR Bladder Tumor Functional Status/Living Situation Town of Residence: [facility] Resides with: Alone Significant Other/Family: Local (Step-daughters in the area) Natural Supports: Step Daughter: Taryn Gama Employment Status: Employed ([employer]) Medications Medication Management: No Issues/Barriers identified Advance Directives Advance Directives: Do you have an Advance Directive: N 08/25/13 09:32 AD On File at [facility]: N 02/11/13 08:33 Date Asked 07/26/24 07/23/24 08:01 AD Date Reviewed COLST On File at [facility] COLST Date Scanned Code Status Resuscitation Status Full Code Insurance Coverage/Financial Issues Insurance: AARP/[facility] MCR Replacement, CBA Care Team Visit Care Team Role Provider Type Ulices Simpson Primary Care Provider NON-[facility] STAFF PHYSICIAN Lonnie Saxena MD Admit Provider [facility] STAFF PHYSICIAN Attending Provider Discharge Anticipated Barriers to Discharge: None Identified Patient/Family Education Needs: Review discharge instructions, discuss Ask Me Three Plan: Return to work letter provided by Dr. Saxena. Marleny will return home with outpatient follow up, no additional services anticipated. He will transport via private vehicle. 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) PFT impression from August 24, 2018 showed mild restrictive lung disease Hypertension (Chronic) Medical History (Updated 07/22/24 @ 13:47 by Rey Pradhan) COPD (chronic obstructive pulmonary disease) GERD (gastroesophageal reflux disease) Otosclerosis of both ears Bronchospasm Community acquired pneumonia of both lungs Rales Listed as basilar rales in PCP chart Fever Acute blood loss anemia Acute urinary retention Hematuria Esophageal varices Carpal tunnel syndrome Cirrhosis of liver Other otosclerosis, bilateral Internal hemorrhoid Gross hematuria Prostate cancer Right carpal tunnel syndrome Surgical History History of ear surgery S/P endoscopic carpal tunnel release (09/09/18) Family History Mother No problems noted. Father Cardiovascular disease Brother No problems noted. 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 Do you feel safe at home: Yes Additional Social history: Live alone SDOH(Care Management) Screening Will the Patient Participate in the Screening?: Yes Do you worry about having a steady place to live?: yes Problems where you live: other In the past 12 months, have you had to go without electric, gas, oil or water in your home?: no Have you or anyone in your house had to go without enough food to eat?: no Has lack of transportation kept you from medical appointments or from doing things needed for daily living?: no Has anyone in your support network made you feel unsafe for any reason?: no Social Determinants of Health Comments(SDOH Details): front half of mobile home not on block per pt. States would like help to clean house. Health Related Social Needs Health related social needs: housing instability, housed, with risk of homelessness(Z59.811)
[2024-07-27] MEDS: Chlorthalidone 25 MG TAB 12.5 MG PO (08:01)
[2024-07-27] MEDS: Calcium 600mg/Vit D 200U TAB 1 TAB PO (08:01)
[2024-07-27] MEDS: Propranolol 80 MG CAPCR PO (08:01)
[2024-07-27] MEDS: Omeprazole 20 MG CAPCR 40 MG PO (08:01)
[2024-07-27] MEDS: Mirabegron 25 MG TABCR PO (08:01)
[2024-07-27] MEDS: Magnesium Oxide 400 MG TAB 200 MG PO (08:02)
[2024-07-27] MEDS: Docusate Sodium 100 MG CAP PO (08:04)
[2024-07-27] MEDS: Losartan 50 MG TAB 100 MG PO (08:04)
== END 2024-07-27 08:19 | disposition home or self-care (01) ==
LOC: MS 08:44 → PDS 08:44
PROVIDERS: Admitting Provider Urology; PCP Student in an Organized Health Care Education/Training Program; Visit Provider Urology
PROC: 0TBB8ZZ Excision of Bladder, Via Natural or Artificial Opening Endoscopic (ICD-10-PCS; CPT 52234; principal; 2024-07-26 07:30)
DX: C67.4 Malignant neoplasm of posterior wall of bladder (principal); K75.81 Nonalcoholic steatohepatitis (NASH); D50.0 Iron deficiency anemia secondary to blood loss (chronic); K62.7 Radiation proctitis; N18.30 Chronic kidney disease, stage 3 unspecified; D69.6 Thrombocytopenia, unspecified; I12.9 Hypertensive chronic kidney disease with stage 1 through stage 4 chronic kidney disease, or unspecified chronic kidney disease; J98.4 Other disorders of lung; C67.5 Malignant neoplasm of bladder neck
CPT/HCPCS: 52234; 00123; 88305; 94640; 99222; 99238; 94664; G0378; J0690; J1100; J2001; J2405; J2704

== ENCOUNTER 2024-09-03 16:45 | Observation (INO) | payer OTHER, MEDICARE, SELFPAY ==
[2024-09-03] VITALS (26 sets, daily range): BP systolic 121–162; BP diastolic 43–71; PULSE 79–107; RESP 16–18; TEMP 36.8; O2SAT 94–98
--- NOTE | 2024-09-03 17:00 | RT.EKG_ITS ---
APPROVED REPORT Exam: Resting ECG Reason for Exam: fatigue Patient Location: E HR:98 bpm ECG Measurements Heart Rate 98 AXIS AL 155 P 40 QRSd 91 QRS 37 QT 344 T 28 QTc 440 Conclusion Sinus rhythm...normal P axis, V-rate 60- 99 Ventricular premature complex...V complex w/ short R-R interval Aberrant conduction of SV complex(es)...aberrant shape, AL 80-220 Sinus rhythm normal axis normal intervals baseline artifact
--- NOTE | 2024-09-03 17:02 | W.ED.GENAD ---
Discharge Plan Disposition Patient Disposition: Admit to [facility] Condition: Stable Discharge Details Chief Complaint: Fall/Non TraumaCriteria Clinical Impression: Abnormal gait, Urinary incontinence, Fall, Abnormal head CT Primary Care Provider: Ulices Simpson ED Provider: Michele Lee Home Meds and New Rx's Prescriptions: No Action chlorthalidone 25 mg tablet 12.5 mg PO Q OTHER DAY Patient Comments: Take 1/2 tablet by mouth once a day with losartan magnesium oxide 250 MG tablet 250 mg PO DAILY AM Spiriva Respimat 2.5 mcg/actuation mist 2 puff inhalation DAILY Calcium 600 + D(3) 600 mg calcium- 200 unit Capsule 1 cap PO DAILY albuterol sulfate [ProAir HFA] 8.5 GM HFA aerosol inhaler 2 puff Inhalation Q4H Qty: 0 0RF losartan 100 mg tablet 100 mg PO DAILY propranolol 80 mg capsule,extended release 24 hr 80 mg PO DAILY Patient Comments: Pt states he takes every other day; took 02/17/24 mirabegron [Myrbetriq] 25 mg tablet extended release 24 hr 25 mg PO DAILY omeprazole 20 mg capsule,delayed release(DR/EC) 40 mg PO DAILY Qty: 0 0RF acetaminophen [Tylenol Extra Strength] 500 mg tablet 500 mg PO Q6H PRN HPI General Date/Time Provider Initiated Documentation: 09/03/24 16:50. HPI Narrative: 84-year-old male presents after mechanical fall from standing while getting into his car has felt generalized fatigue today. No chest pain or shortness of breath no nausea no vomiting no abdominal pain. Denies hitting his head or losing consciousness. Related Data Home Medications ?Medication ?Instructions ?Recorded ?Confirmed magnesium oxide 250 mg PO DAILY AM 02/25/17 09/03/24 calcium 600 mg (as 1 cap PO DAILY 09/03/18 09/03/24 carbonate)-vitamin D3 5 mcg (200 unit) capsule (Calcium 600 + D(3)) albuterol sulfate 90 mcg/actuation 2 puff inhalation Q4H ##0 02/13/19 09/03/24 aerosol inhaler (ProAir HFA) tiotropium bromide 2.5 2 puff inhalation DAILY 05/31/21 09/03/24 mcg/actuation mist for inhalation (Spiriva Respimat) losartan 100 mg tablet 100 mg PO DAILY 10/08/23 09/03/24 mirabegron 25 mg tablet,extended 25 mg PO DAILY 10/08/23 09/03/24 release 24 hr (Myrbetriq) propranolol 80 mg capsule,24 80 mg PO DAILY 10/08/23 09/03/24 hr,extended release omeprazole 20 mg capsule,delayed 40 mg (2 x 20 mg) PO DAILY #0 caps 10/10/23 09/03/24 release acetaminophen 500 mg tablet 500 mg PO Q6H PRN 02/19/24 09/03/24 (Tylenol Extra Strength) chlorthalidone 25 mg tablet 12.5 mg PO Q OTHER DAY 03/11/24 09/03/24 Previous Rx's ?Medication ?Instructions ?Recorded albuterol sulfate 90 mcg/actuation 2 puff inhalation Q4H ##0 02/13/19 aerosol inhaler (ProAir HFA) omeprazole 20 mg capsule,delayed 40 mg (2 x 20 mg) PO DAILY #0 caps 10/10/23 release Allergies Allergy/AdvReac Type Severity Reaction Status Date / Time ATUL Inhibitors AdvReac cough Verified 09/03/24 19:58 General Stated Complaint: Fall/Non TraumaCriteria MANGO: 4 Exam Narrative Exam Narrative: Alert interactive Pupils round equal reactive bilaterally Moist mucous membranes tongue secretions Lungs clear bilaterally no wheeze rales or rhonchi speaking full sentences no respiratory distress Normal heart sounds no murmurs rubs or gallops, noted to be mildly tachycardic on arrival Abdomen soft nontender nondistended No midline spinal tenderness step-off crepitus deformity No cranial facial trauma Pelvis stable moving bilateral lower extremities without deficit Alert oriented interactive cranial nerves II through XII intact 5-5 strength upper and lower extremities bilaterally normal sensation, no ataxia appreciated, no speech deficits noted Normal mood Course Vital Signs Vital signs: Vital Signs Temperature 36.8 C 09/03/24 16:45 Pulse 107 H 09/03/24 16:45 Respiratory Rate 16 09/03/24 16:45 Blood Pressure 162/71 H 09/03/24 16:45 Pulse Oximetry 97 09/03/24 16:45 Temperature 36.8 C 09/03/24 16:45 Temperature Source Temporal Artery Scan 09/03/24 16:45 Pulse 107 H 09/03/24 16:45 Respiratory Rate 16 09/03/24 16:45 Blood Pressure 162/71 H 09/03/24 16:45 Pulse Oximetry 97 09/03/24 16:45 Oxygen Delivery Method Room Air 09/03/24 16:45 Oxygen Flow Rate 0 09/03/24 16:45 Pain Level 0 09/03/24 16:45 Medical Decision Making 84-year-old male presents brought in by ambulance after mechanical fall while getting into his car, fell to the side, no head neck or thoracoabdominal trauma noted, patient is alert oriented, noted to be mildly tachycardic on arrival and moderately hypertensive likely related to discomfort, no neurologic deficits noted, no chest pain shortness of breath or abdominal pain. Given age and comorbidities will obtain basic labs chest x-ray x-ray pelvis CT head electrolyte panel, urinalysis close reassessment 18: [address] imaging concerning for normal pressure hydrocephalus. Patient functionally independent at baseline lives alone, today noting gait disturbance and having noted urinary incontinence, alert interactive denies headache visual changes nausea vomiting or neck pain. Will reach out to neurosurgery at [facility] to arrange either treatment or close follow-up 19: 26 given patient's gait findings and urinary incontinence and possible stool incontinence, lumbar spine CT obtained which showed L3-L4 L4-L5 annular bulging with spinal canal stenosis. No decreased sensation to perineal region. Normal rectal tone. Lower suspicion for cauda equina. Obtaining CT abdomen pelvis to assess etiology of elevated bilirubin and alk phos. Will contact neurosurgical team regarding concern for normal pressure hydrocephalus 21: 01 discussed case with neurosurgery at [facility] who recommends further workup and consultation with neurology also to consider MRI spine with and without contrast. Recommending further outpatient workup to schedule large volume LP with neurology which will guide diagnosis if found to have normal pressure hydrocephalus after this workup neurosurgical team will be contacted by neurology service. Awaiting to hear back from neurology at [facility] to discuss potential transfer as patient at this juncture will need admission given his gait disturbances as he would be unsafe to ambulate/live unassisted in his current state. 21: 23 patient resting actively no acute distress. Discussed case with neurology at [facility] who recommends stepwise outpatient workup for NPH. I expressed that the patient will likely need admission due to his gait disturbance and may need to be placed at rehab/long-term care. Neurology states that they can still receive a referral and evaluate him on an outpatient basis. Also recommending the addition of MRI brain. Patient be admitted for further imaging PT OT and likely placement with neurology referral. 22: 09 patient resting actively no acute distress. Admitting to [facility] for PT OT MRI and consideration of placement given decline in functional status Quality:SDOH Health Related Social Needs: Health related social needs housing instability, housed, with risk of homelessness(Z59.811) PFSH All Active Problems (Updated 09/03/24 @ 22:10 by Michele Lee MD) Abnormal head CT (Acute) Fall (Acute) Urinary incontinence (Acute) Abnormal gait (Acute) SPENCER (nonalcoholic steatohepatitis) (Chronic) Radiation proctitis (Chronic) Coagulopathy (Chronic) Elevated INR (Acute) Chronic blood loss anemia (Chronic) Chronic radiation proctitis (Chronic) Anal stricture (Acute) Hematochezia (Acute) Cough (Acute) Urgency incontinence (Acute) Bladder cancer (Acute) Mixed hearing loss, bilateral (Acute) History of prostate cancer (Chronic) CKD (chronic kidney disease), stage III (Chronic) Thrombocytopenia (Chronic) Restrictive lung disease (Chronic) 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) PFT impression from August 24, 2018 showed mild restrictive lung disease Hypertension (Chronic) Medical History (Updated 09/03/24 @ 22:10 by Michele Lee MD) COPD (chronic obstructive pulmonary disease) GERD (gastroesophageal reflux disease) Otosclerosis of both ears Bronchospasm Community acquired pneumonia of both lungs Rales Listed as basilar rales in PCP chart Fever Acute blood loss anemia Acute urinary retention Hematuria Esophageal varices Carpal tunnel syndrome Cirrhosis of liver Other otosclerosis, bilateral Internal hemorrhoid Gross hematuria Prostate cancer Right carpal tunnel syndrome Surgical History History of ear surgery S/P endoscopic carpal tunnel release (09/09/18) Family History Mother No problems noted. Father Cardiovascular disease Brother No problems noted. 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
--- OUTSIDE RECORDS SUMMARY | 2024-09-03 17:50 | XMS_ITS | Clinical Summary ---
Author Organization [facility] Address One [facility] [place] [address] Care Team Providers Care Lens Hardener Name Role Phone Edgar Marie MD Primary Care Provider [phone] Allergies Active Allergy Reactions Criticality Noted Date Comments Dwayne Inhibitors 05/29/2020 Medications Medication Sig Dispensed Refills Start Date End Date Status albuterol (PROAIR HFA) 90 mcg/Actuation inhaler 08/24/2010 Active CALCIUM CARBONATE/VITAMIN D3 (CALCIUM 600 WITH VITAMIN D3 ORAL) 08/24/2010 Active omeprazole (PRILOSEC) 20 mg Capsule, Delayed Release(E.C.) TAKE 1 CAPSULE BY MOUTH ONCE DAILY 3 07/31/2019 Active SPIRIVA RESPIMAT 2.5 mcg/actuation Mist INHALE 2 SPRAY(S) BY MOUTH ONCE DAILY 5 09/01/2019 Active loratadine (Claritin) 10 mg Tablet TAKE 1 TABLET BY MOUTH ONCE DAILY FOR ALLERGIES 12/04/2019 Active losartan (COZAAR) 100 mg Tablet TAKE 1 TABLET BY MOUTH ONCE DAILY FOR BLOOD PRESSURE 05/20/2020 Active magnesium 250 mg Tablet Take by mouth. Active acetaminophen (Tylenol) 325 mg Tablet Take 650 mg by mouth every 4 hours as needed for Pain. 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 J0sAkYo. 30% of left apex core had David 4+3 and 2% of right base core with Metz 3+4. SAMIR-, Pretreatment PSA of 8.2. Radiation therapy detail: Target location: prostate and SV Technique: IMRT Total dose: 7920 cGy Fraction dose: 180 cgy Dates of treatment: 06/05/2009 through 08/08/2009 Total fractions: 44 Elapsed time for treatment: 64 days Radiation proctitis 03/26/2010 Encounters Date Type Department Care Team Description 06/16/2024 1:00 PM EDT [place] [address] Janeen Leger APRN Hepatic cirrhosis, unspecified hepatic cirrhosis type, unspecified whether ascites present 06/16/2024 11:30 AM EDT Laboratory Appointment Lab [address] [place] [address] Hepatic cirrhosis, unspecified hepatic cirrhosis type, unspecified whether ascites present 06/16/2024 9:27 AM EDT - 06/16/2024 11:59 PM EDT Hospital [place] [address] Janeen Leger APRN Hepatic cirrhosis, unspecified hepatic cirrhosis type, unspecified whether ascites present Discharge Disposition: Home 06/16/2024 Travel from Last 3 Months Family History Relation Status Comments Brother Alive Father cardiac disease Mother cardiac disease Social History Tobacco Use Types Packs/Day Years Used Date Smoking Tobacco: Never Smokeless Tobacco: Never Comments:denies vaping Alcohol Use Standard Drinks/Week Comments No 0 (1 standard drink = 0.6 oz pur e alcohol) Sex and Gender Information Value Date Recorded Sex Assigned at Not on file Gender Identity Not on file Sexual Orientation Not on file Last Filed Vital Signs Vital Sign Reading Time Taken Comments Blood Pressure 113/99 06/16/2024 12:59 PM EDT Pulse 65 06/16/2024 12:59 PM EDT Temperature 36.2 ??C (97.2 ??F) 12/27/2021 3:36 PM ES T Respiratory Rate 20 12/27/2021 5:20 PM EST Oxygen Saturation 97% 04/28/2023 10:54 AM EDT Inhaled Oxygen Concentration - - Weight 73.5 kg (162 lb 1.6 oz) 06/16/2024 12:59 PM EDT Height 162.6 cm (5' 4) 06/16/2024 12:59 PM EDT Body Mass Index 27.82 06/16/2024 12:59 PM EDT Plan of Treatment Health Maintenance Due Date Last Done Comments Pneumoccocal Vaccine: 65+ (1 of 2 - PCV) 1948 Tetanus/Diphtheria/Pertussis Vaccines (1 - Tdap) 1961 Zoster vaccine (1 of 2) 1992 Advance Directive 1997 Covid-19 Vaccine (1 - 2022-2 4 season) 2024 Influenza (Flu) vaccine (1 o f 1 - Influenza standard series) 07/18/2024 Colonoscopy Discontinued 12/27/2021, 12/18, 12/14/2020, Additional history exists Colorectal Cancer Screening Discontinued Sigmoidoscopy (10 year) with FIT yearly Discontinued 12/27/2021, 12/27/2021, 12/14/2020, Additional history exists CT Colonography Discontinued FIT DNA Discontinued FIT Discontinued Sigmoidoscopy Discontinued Procedures Procedure Name Priority Date/Time Associated Diagnosis Comments DIFFERENTIAL, AUTOMATED Routine 06/16/2024 10:38 AM EDT Hepatic cirrhosis, unspecified hepatic cirrhosis type, unspecified whether ascites present HEMOGRAM Routine 06/16/2024 10:38 AM EDT Hepatic cirrhosis, unspecified hepatic cirrhosis type, unspecified whether ascites present AFP TUMOR MARKER Routine 06/16/2024 10:3 8 AM EDT Hepatic cirrhosis, unspecified hepatic cirrhosis type, unspecified whether ascites present COMPREHENSIVE METABOLIC PANEL Routine 06/16/2024 10:38 AM EDT Hepatic cirrhosis, unspecified hepatic cirrhosis type, unspecified whether ascites present CBC (WITH DIFF) Routine 06/16/2024 10:38 AM EDT Hepatic cirrhosis, unspecified hepatic cirrhosis type, unspecified whether ascites present PROTHROMBIN TIME Routine 06/16/2024 10:3 8 AM EDT Hepatic cirrhosis, unspecified hepatic cirrhosis type, unspecified whether ascites present US ABDOMEN LIMITED HEPATOLOGY PROTOCOL Routine 06/16/2024 10:04 AM EDT Hepatic cirrhosis, unspecified hepatic cirrhosis type, unspecified whether ascites present COLONOSCOPY Routine 12/27/2021 4:34 PM EST from Last 3 Months or Most Recently Relevant to Health Maintenance Results * (ABNORMAL) Hemogram (06/16/2024 10:38 AM EDT) White Blood Cell 3.8(L) 4.0 - 9.5 x10(3)/mc L [facility] Red Blood Cell 3.31(L) 4.58 - 5.54 x10(6)/mc L [facility] Hemoglobin 10.6(L) 13.7 - 16.5 g/dL [facility] Hematocrit 31.0(L) 40.5 - 48.5 % [facility] Mean Cell Volume 93.7(H) 82.9 - 93.1 fL [facility] Mean Cell Hemoglobin 32.0 27.5 - 32.1 pg [facility] Mean Cell Hemoglobin Concentration 34.2 32.0 - 35.7 g/dL [facility] Platelet 54(L) 145 - 357 x10(3)/mc L [facility] RDW Standard Deviation 47.8(H) 36.0 - 45.0 fL [facility] RDW coefficient of variation 14.1(H) 11.4 - 13.8 % [facility] Mean Platelet Volume 12.1 7.6 - 12.9 fL [facility] NRBC% auto 0.0 % [facility] NRBC Absolute 0.000 0.000 - 0.000 x10(3)/mc L [facility] Blood 06/16/2024 10:3 8 AM EDT 06/16/2024 10:48 AM EDT Narrative Resulting Agency Comment Spec In Lab Janeen Leger APRN HEMATOLOGY ORDERAB LES [facility] [place] [address] * (ABNORMAL) Differential, Automated (06/16/2024 10:38 AM EDT) Neutrophil % 64.0 % [facility] Neutrophil Absolute 2.41 1.70 - 6.10 x10(3)/mc L [facility] Lymph % 19.7 % [facility] Lymphocytes Abs 0.7(L) 0.9 - 3.2 x10(3)/mc L [facility] Monocyte % 6.1 % [facility] Monocyte Abs 0.2(L) 0.3 - 0.9 x10(3)/mc L [facility] Eos % 8.8 % [facility] Eosinophils Abs 0.3 0.0 - 0.4 x10(3)/mc L [facility] Basophil % 1.1 % [facility] Baso Absolute 0.0 0.0 - 0.1 x10(3)/mc L [facility] Immature Gran % 0.30 % [facility] Comment: Immature granulocytes(IG's)percentage and absolute count will include metamyelocytes, myelocytes, and promyelocytes. Blood smears from CBCs yielding IG's will be scanned manually for concordance. If this scan disagrees with the automated IG or if promyelocytes are noted, a manual differential will be performed. Immature Gran Absolute 0.01 0.00 - 0.04 x10(3)/mc L [facility] Blood 06/16/2024 10:3 8 AM EDT 06/16/2024 10:48 AM EDT Narrative Resulting Agency Comment Spec In Lab Janeen Juma Jan LIMON HEMATOLOGY ORDERAB LES Performing Organization Address [facility] de Phone Number [facility] [place] [address] * AFP tumor marker (06/16/2024 10:38 AM EDT) Alpha Fetoprotein 3.1 <=8.3 ng/mL [facility] Comment: This result was generated using a Kiah Mikaela immunoassay. ??Results obtained from other methods or manufacturers cannot be used interchangeably with this method. Blood 06/16/2024 10:3 8 AM EDT 06/16/2024 10:48 AM EDT Narrative Resulting Agency Comment Spec In Lab Janeen Leger APRN CHEMISTRY ORDERABL ES Performing Organization Address [facility] de Phone Number [facility] [place] [address] * (ABNORMAL) Prothrombin Time (06/16/2024 10:38 AM EDT) Prothrombin Time 17.3(H) 9.4 - 12.5 sec [facility] International Normalization Ratio 1.5 [facility] Comment: An INR <2.0 indicates adequate procoagulant activity for hemostasis in most patients without underlying bleeding disorders, though the INR may not adequately reflect hemostatic capacity in patients with liver disease and synthetic impairment. The recommended target INR range for therapeutic anticoagulation is 2.0 ? 3.0 for most applications, though lower and higher ranges may be appropriate depending on clinical circumstances. Blood 06/16/2024 10:3 8 AM EDT 06/16/2024 10:48 AM EDT Narrative Resulting Agency Comment Spec In Lab Janeen Leger BUSINESS ETHICS PROFESSOR HEMATOLOGY ORDERAB LES [facility] [place] [address] * (ABNORMAL) Comprehensive metabolic panel (non-fasting) (06/16/2024 10:38 AM EDT) Glucose 112 65 - 199 mg/dL [facility] Comment:Diabetes: >=200 mg/d L plus symptoms Blood Urea Nitrogen 18 10 - 20 mg/dL [facility] Creatinine 1.53(H) 0.80 - 1.50 mg/dL [facility] Sodium 142 135 - 145 mmol/L [facility] Potassium 4.3 3.5 - 5.0 mmol/L [facility] Comment: Please note: ??Patients with WBC >100,000 may have falsely elevated Potassium levels. ??For accurate Potassium quantification in these patients send serum separator tube (gold top) for subsequent determinations. ??Contact the Clinical Chemistry Laboratory if there are any questions. Chloride 109(H) 98 - 107 mmol/L [facility] Carbon Dioxide 20(L) 22 - 31 mmol/L [facility] Anion Gap 13 5 - 15 mmol/L [facility] Calcium 8.9 8.5 - 10.5 mg/dL [facility] Protein, Total 7.4 6.1 - 8.0 g/dL [facility] Albumin 2.9(L) 3.2 - 5.2 g/dL [facility] Aspartate Aminotransferase 32 0 - 39 unit/L [facility] Alanine Aminotransferase 17 0 - 55 unit/L [facility] Alkaline Phosphatase 163(H) 40 - 130 unit/L [facility] Bilirubin, Total 2.1(H) 0.2 - 1.3 mg/dL [facility] Est Glomerular Filtration Rate 45(L) >=60 mL/min/1. 73 m?? [facility] Comment: This patient's estimated GFR was calculated using the 2020 CKD-EPI equation. The estimated GFR can vary from the measured GFR by up to 30% in the absence of rapidly changing kidney function. Assessment of the estimated GFR is not appropriate when creatinine concentrations are rapidly changing. For clinical situations in which a more precise estimate of GFR is necessary, consider alternative methods of GFR estimation such as a 24-hour urine creatinine clearance. Assignment of CKD stage 1-5 for patients with an eGFR near the transition point between stages may be based on clinical assessment of muscle mass and symptoms in addition to eGFR. Blood 06/16/2024 10:3 8 AM EDT 06/16/2024 10:48 AM EDT Narrative Resulting Agency Comment Spec In Lab Janeen Leger APRN CHEMISTRY ORDERABL ES [facility] [place] [address] * US Abdomen Limited Hepatology Protocol (06/16/2024 10:04 AM EDT) WORKSTATION ID [id number] RAD Anatomical Region Laterality Modality Abdomen Ultrasound 06/16/2024 10:0 3 AM EDT Impressions 06/16/2024 10:30 AM EDT 1. ??Normal liver size. Coarsened heterogeneous parenchyma, consistent with cirrhosis. No focal hepatic lesion. 2. ??Patent main portal vein with normal directional flow. Moderate splenomegaly. No ascites. 3. ??Cholelithiasis without evidence of acute cholecystitis. 4. ??Normal common bile duct. I have personally reviewed the image(s) and the resident's interpretation and agree with the findings, Michele Azevedo MD at 06/16/2024 10:23 AM Thank you for letting us participate in the care of this patient. If you are a health care provider and have any questions regarding this report, please contact the number above. For patients who have questions, please contact the health care program director that requested your imaging first. ? Michele Azevedo, Physician Electronically Signed Final Report ?? 06/16/2024 10:30 am Narrative 06/16/2024 10:30 AM EDT Abdominal ? (Signed Final 06/16/2024 10:30 am) PATIENT INFO: ID #: ? [id number] ?: ??[birth year] (83 yrs)(M) Name: ? VINOD Sarina DIAS ? Visit Date: 06/16/2024 10:03 am PERFORMED BY: Attending: ?Roberto Carlos BERG, Michele Resident: ? Nick BERG, [facility] Performed By: ? Oracio Boyle RDMS Referred By: ?JANEEN LEGER Location: ? [place] [facility] Protocol - Abdominal ?[id number] Limited Survey Single Organ or Quadrant - [id number] INDICATIONS: cirrhosis, screen for hcc ------ LIVER: ------ Right Lobe Length: ?? 12.3 ?? cm Echogenicity/Echotexture: ?? Coarse parenchyma with capsular ? nodularity Portal Veins: ?Hepatopetal Hepatic Veins: ?? Patent GALLBLADDER: Cholelithiasis: ?Gallstones Wall Thickness: ?2. mm Focal Tenderness: ?Negative sonographic Ortega's sign BILIARY TRACT: Intrahepatic Ducts: ?? Normal Extrahepatic Ducts: ?? Normal Common Duct Size: ? 2.0 ? mm ------- SPLEEN: ------- Size (cm) ?L: ??15.3 ?AP: ??15.3 ?TV: ??6.1 Vol (ml): ?747.7 Comment: ?Splenomegaly FLUID COLLECTIONS: Ascites not present on 4 quadrant evaluation. Procedure Note Michele Azevedo MD - 06/16/2024 Abdominal (Signed Final 06/16/2024 10:30 am) PATIENT INFO: ID #: [id number] : [birth year] (83 yrs)(M) Name: VINOD DIXON Visit Date: 06/16/2024 10:03 am PERFORMED BY: Attending: Michele Azevedo MD Resident: Abebe Romero MD Performed By: Oracio Boyle RDMS Referred By: JANEEN LEGER Location: [place] SERVICE(S) PROVIDED: [facility] - Hepatology Protocol - Abdominal [id number] Limited Survey Single Organ or Quadrant - [id number] INDICATIONS: cirrhosis, screen for hcc ------ LIVER: ------ Right Lobe Length: 12.3 cm Echogenicity/Echotexture: Coarse parenchyma with capsular nodularity Portal Veins: Hepatopetal Hepatic Veins: Patent GALLBLADDER: Cholelithiasis: Gallstones Wall Thickness: 2. mm Focal Tenderness: Negative sonographic Ortega's sign BILIARY TRACT: Intrahepatic Ducts: Normal Extrahepatic Ducts: Normal Common Duct Size: 2.0 mm ------- SPLEEN: ------- Size (cm) L: 15.3 AP: 15.3 TV: 6.1 Vol (ml): 747.7 Comment: Splenomegaly FLUID COLLECTIONS: Ascites not present on 4 quadrant evaluation. IMPRESSION 1. Normal liver size. Coarsened heterogeneous parenchyma, consistent with cirrhosis. No focal hepatic lesion. 2. Patent main portal vein with normal directional flow. Moderate splenomegaly. No ascites. 3. Cholelithiasis without evidence of acute cholecystitis. 4. Normal common bile duct. I have personally reviewed the image(s) and the resident's interpretation and agree with the findings, Michele Azevedo MD at 06/16/2024 10:23 AM Thank you for letting us participate in the care of this patient. If you are a health care provider and have any questions regarding this report, please contact the number above. For patients who have questions, please contact the health care program director that requested your imaging first. Michele Azevedo, Physician Electronically Signed Final Report 06/16/2024 10:30 am Janeen Legre BUSINESS ETHICS PROFESSOR IMG US GEN ORDERAB LES * COLONOSCOPY (12/27/2021 4:34 PM EST) COLONOSCOPY [facility] Endoscopy Procedure Date: 12/27/2021 4:34 PM ? Patient Name: Vinod Dixon ? Date of : 1940 ? Age: 81 ? Order #: [id number] ? Instrument Name: [id number] ? Procedure: ? Colonoscopy Indications: ? Rectal bleeding Providers: ? Justin Santiago MD, Isabella Martinez ? Blake Mcdowell, Paper Core Machine Operator Referring MD: ?Edgar Marie Medicines: ? Monitored Anesthesia Care Complications: ? No immediate complications. Procedure: ? Pre-Anesthesia Assessment: ? - Prior to the procedure, a History ? and Physical was performed, and ? patient medications and allergies ? were reviewed. The patient's ? tolerance of previous anesthesia was ? also reviewed. The risks and benefits ? of the procedure and the sedation ? options and risks were discussed with ? the patient. All questions were ? answered, and informed consent was ? obtained. Prior Anticoagulants: The ? patient has taken no previous ? anticoagulant or antiplatelet agents. ? ASA Grade Assessment: III - A patient ? with severe systemic disease. After ? reviewing the risks and benefits, the ? patient was deemed in satisfactory ? condition to undergo the procedure. ? The procedure, indications, benefits, ? risks and alternatives were explained ? to the patient. Specifically ? discussed were potential ? complications including, but not ? limited to, bleeding, perforation, ? infection, missing a cancer, and ? adverse medication reactions. The ? patient was placed in the left ? lateral decubitus position, and a ? digital rectal exam was performed. ? The Colonoscope was inserted in the ? anus and under direct visualization, ? advanced to the terminal ileum, with ? identification of the appendiceal ? orifice and IC valve. Careful ? inspection was made as the ? colonoscope was withdrawn. The ? colonoscopy was performed without ? difficulty. The patient tolerated the ? procedure well. The quality of the ? bowel preparation was good. The ? terminal ileum, ileocecal valve, ? appendiceal orifice, and rectum were ? photographed. ? Findings: ? The digital rectal exam findings include anal ? stricture and hemorrhoids. Retroflexion is not ? performed given the post-radiation therapy changes. ? Multiple small angioectasias with stigmata of minimal ? bleeding were found in the distal rectum. No AVMs ? appear amenable to endoscopic therapy. ? The rectal mucosa and lumen is mildly stenotic an ? tubular to 15 cm and there is some touch frability at ? 10 cm. ? The colon is otherwise normal. ? The terminal ileum appeared normal. ? Moderate Sedation: ? Not applicable - See Anesthesia documentation Impression: ?- Anal stricture found on digital ? rectal exam. ? - Multiple small non-bleeding colonic ? angioectasias in the distal rectum. ? - Mucosal changes consistent with ? radiation proctitis and mild ? stenosis/stricture in the rectum. ? - The examined portion of the ileum ? was normal. ? - No specimens collected. Recommendation: ?- Likely there will be some ? intermittent minor bleeding. ? - Suggest keeping stool soft. Use a ? fiber supplement such as Benefiber or ? Metamucil daily and Miralax as needed ? or daily as well. ? - No repeat colonoscopy due to age. ? Attending Participation: ? I personally performed the entire procedure. ? Dr. Deric Santiago ___ Justin Santiago MD 12/27/2021 5:26:51 PM Number of Addenda: 0 Note Initiated On: 12/27/2021 4:34 PM PROVATION 12/27/2021 4:34 PM EST Edgar Marie MD GENERAL SURGICAL ORD ERABLES PROVATION from Last 3 Months or Most Recently Relevant to Health Maintenance Care Teams Lens Hardener Relationship Specialty Start Date End Date Edgar Marie MD PCP - General Family Medicine 08/30/16
--- OUTSIDE RECORDS SUMMARY | 2024-09-03 17:50 | XMS_ITS | Referral Summary ---
Author Organization [facility] Address [address] [place] [address] Care Team Providers Care Tar Pot Worker Name Role Phone Edgar Marie MD Primary Care Provider [phone] Encounters Date Type Department Care Team Description 07/26/2024 Lab Requisition [facility] Pathology & Laboratory Medicine - [facility] [address] [place] [address] Lonnie Saxena MD Encounter for other general examination from Last 3 Months Social History Tobacco Use Types Packs/Day Years Used Date Smoking Tobacco: Never Assessed Sex and Gender Information Value Date Recorded Sex Assigned at Not on file Gender Identity Not on file Sexual Orientation Not on file Plan of Treatment Not on file Procedures Procedure Name Priority Date/Time Associated Diagnosis Comments SURGICAL PATHOLOGY Today 07/26/2024 7: 50 EDT Encounter for other general examination from Last 3 Months Results * SURGICAL PATHOLOGY (07/26/2024 7:50 EDT) Note to Patient The following pathology results have been interpreted by your pathologist and may be available to you before your health provider has had the opportunity to review them. Please allow time for your provider to receive these results and explore management options, if applicable. 07/29/2024 10:29 EDT [facility] Final Diagnosis A. BLADDER, TRANSURETHRAL RESECTION OF BLADDER TUMOR: - Low grade papillary urothelial carcinoma, non-invasive. See synoptic. - Muscularis propria present; negative for carcinoma. 07/29/2024 10:29 EDT [facility] Attestation There was significant resident/fellow involvement in the diagnostic evaluation of this case. By the signature below, the attending physician certifies that they have personally conducted a gross and/or microscopic examination of the described specimens and rendered or confirmed the above diagnosis. 07/29/2024 10:29 [facility] at 1029 Synoptic URINARY BLADDER: Biopsy and Transurethral Resection of Bladder Tumor (TURBT) URINARY BLADDER: BIOPSY AND TRANSURETHRAL RESECTION OF BLADDER TUMOR (TURBT) - All Specimens Protocol posted: 08/06/2023 SPECIMEN ?? Procedure: ?Transurethral resection of bladder (TURBT) TUMOR ?? Tumor Site: ?Not specified ?? Histologic Type: ?Papillary urothelial carcinoma, noninvasive ?? Histologic Grade: ?Low-grade ?? Tumor Extent: ?Noninvasive papillary carcinoma ?? Lymphatic and / or Vascular Invasion: ?Not identified ?? Tumor Configuration: ?Papillary ?? Muscularis Propria (detrusor muscle): ?Present in specimen 07/29/2024 10:29 EDT [facility] Clinical History Bladder cancer 07/29/2024 10:29 EDT [facility] Gross Description A. Received in formalin labelled with proper patient identification (initials D, C) and bladder resection are 2 rubbery white, villanueva, and guy tissue fragments (0.4 x 0.2 x 0.2 cm and 0.6 x 0.4 x 0.2 cm). The larger tissue is bisected. Entirely submitted in A1 Koki Davis 07/27/2024 7:49 07/29/2024 10:29 T [facility] Resident/Alejandro w: Basilio Byrd MD 07/29/2024 10:29 EDT [facility] Performing Lab [facility] 07/29/2024 10:29 [facility] Scanned Images 07/29/2024 10:29 T [facility] Tissue SPECIMEN FROM URINARY BLADDER / Unknown 07/26/2024 7:50 EDT 07/26/2024 22:18 EDT Lonnie Saxena MD PATHOLOGY ORDERAB LES [facility] [address] [place], [place] [id number] from Last 3 Months Care Teams Tar Pot Worker Relationship Specialty Start Date End Date Edgar Marie [place] [place] [address] PCP - General 03/24/17
--- OUTSIDE RECORDS SUMMARY | 2024-09-03 17:50 | XMS_ITS | Encounter Summary ---
Author Organization [facility] Address [address] [place] [id number] Care Team Providers Care Balance Bridge Inspector Name Role Phone Unavailable Primary Care Provider Unavailabl e Encounter Details Date Type Department Care Team (Latest Contact Info) Description 03/20/2017 17:32 EDT - 03/20/2017 23:59 EDT Hospital Encounter [address] [address] Unknown, Provider, Discharge Disposition: Home or Self Care Social History Tobacco Use Types Packs/Day Years Used Date Smoking Tobacco: Never Assessed Sex and Gender Information Value Date Recorded Sex Assigned at Not on file Gender Identity Not on file Sexual Orientation Not on file documented as of this encounter Discharge Disposition Disposition Code Departure Means Destination Home or Self [facility] documented in this encounter Plan of Treatment Not on file documented as of this encounter Visit Diagnoses Not on filedocumented in this encounter
--- OUTSIDE RECORDS SUMMARY | 2024-09-03 17:50 | XMS_ITS | Clinical Summary ---
Author Organization [facility] Address [address] [place] [address] Care Team Providers Care Custom Bow Maker Name Role Phone Edgar Marie MD Primary Care Provider [phone] Encounters Date Type Department Care Team Description 07/26/2024 Lab Requisition [facility] Pathology & Laboratory Medicine - [facility] [address] [place] [address] Lonnie Saxena MD Encounter for other general examination from Last 3 Months Social History Tobacco Use Types Packs/Day Years Used Date Smoking Tobacco: Never Assessed Sex and Gender Information Value Date Recorded Sex Assigned at Not on file Gender Identity Not on file Sexual Orientation Not on file Plan of Treatment Health Maintenance Due Date Last Done Comments RSV Immunization ( o r 60+ Years) (1 - 1-dose 60+ series) 2002 Fall Risk Screening 2007 COVID-19 Vaccine ( season) 2024 Procedures Procedure Name Priority Date/Time Associated Diagnosis [...] if applicable. 07/29/2024 10:29 EDT [facility] Final Diagnosis A. BLADDER, TRANSURETHRAL RESECTION OF BLADDER TUMOR: - Low grade papillary urothelial carcinoma, non-invasive. See synoptic. - Muscularis propria present; negative for carcinoma. 07/29/2024 10:29 [facility] Attestation There was significant resident/fellow involvement in the diagnostic evaluation of this case. By the signature below, the attending physician certifies that they have personally conducted a gross and/or microscopic examination of the described specimens and rendered or confirmed the above diagnosis. 07/29/2024 10:29 [facility] at 1029 Synoptic URINARY BLADDER: [...] (detrusor muscle): ?Present in specimen 07/29/2024 10:29 [facility] Clinical History Bladder cancer 07/29/2024 10:29 [facility] Gross Description A. Received in formalin labelled with proper patient identification (initials D, C) and bladder resection are 2 rubbery white, villanueva, and guy tissue fragments (0.4 x 0.2 x 0.2 cm and 0.6 x 0.4 x 0.2 cm). The larger tissue is bisected. Entirely submitted in A1 Koki Davis 07/27/2024 7:49 07/29/2024 10:29 [facility] Resident/Alejandro w: Basilio Byrd MD 07/29/2024 10:29 [facility] Performing Lab [facility] 07/29/2024 10:29 [facility] Scanned Images 07/29/2024 10:29 [facility] Tissue SPECIMEN FROM URINARY BLADDER / Unknown 07/26/2024 7:50 EDT 07/26/2024 22:18 EDT Lonnie Saxena MD PATHOLOGY ORDERAB LES [facility] [address] [place] [address] from Last 3 Months Care Teams Custom Bow Maker Relationship Specialty Start Date End Date Edgar Marie MD [address] [place] [place] [address] PCP - General 03/24/17
--- OUTSIDE RECORDS SUMMARY | 2024-09-03 17:50 | XMS_ITS | Encounter Summary ---
Author Organization [facility] Address [address] [place] [address] Care Team Providers Care Oil Developer Name Role Phone Edgar Marie MD Primary Care Provider [phone] Encounter Details Date Type Department Care Team (Late st Contact Info) Description 02/19/2024 Lab Requisition [facility] Pathology & Laboratory Medicine - [address] [address] Lonnie Saxena MD [address] [place] [phone] Malignant neoplasm of bladder, unspecified (HCC-CMS) Social History Tobacco Use Types Packs/Day Years Used Date Smoking Tobacco: Never Assessed Sex and Gender Information Value Date Recorded Sex Assigned at Not on file Gender Identity Not on file Sexual Orientation Not on file documented as of this encounter Plan of Treatment Not on file documented as of this encounter Procedures Procedure Name Priority Date/Time Associated Diagnosis Comments SURGICAL PATHOLOGY Today 02/19/2024 8: 31 EDT Malignant neoplasm of bladder, unspecified (HCC-CMS) documented in this encounter Results * SURGICAL PATHOLOGY (02/19/2024 8:31 EDT) Note to Patient The following pathology results have been interpreted by your pathologist and may be available to you before your health provider has had the opportunity to review them. Please allow time for your provider to receive these results and explore management options, if applicable. 02/23/2024 9:16 EDT [facility] Final Diagnosis A. URINARY BLADDER, TUMOR, TRANSURETHRAL RESECTION (TURBT): - Papillary urothelial carcinoma, invasive, involving subepithelial lamina propria, low-grade. - No lymph-vascular invasion. - muscularis propria present; negative for tumor involvement. - Focal cautery changes. 02/23/2024 9:16 [facility] Diagnosis Comment The report of prior urinary bladder specimen with papillary urothelial carcinoma, non-invasive, low-grade ([id number]) has been reviewed. 02/23/2024 9:16 [facility] Attestation By the signature below, the attending physician certifies that they have 1) personally conducted a gross and/or microscopic examination of the described specimen(s), and/or personally interpreted the results of laboratory testing of the described specimen(s), and 2) personally rendered or confirmed the above diagnosis. 02/23/2024 9:16 [facility] at 0916 Synoptic URINARY BLADDER: Biopsy and Transurethral Resection of Bladder Tumor (TURBT) URINARY BLADDER: BIOPSY AND TRANSURETHRAL RESECTION OF BLADDER TUMOR (TURBT) - A Protocol posted: 08/06/2023 SPECIMEN ?? Procedure: ?Transurethral resection of bladder (TURBT) TUMOR ?? Tumor Site: ?Not specified ?? Histologic Type: ?Urothelial carcinoma, invasive (conventional) ?? Histologic Grade: ?Low-grade ?? Tumor Extent: ?Invades lamina propria (subepithelial connective tissue) ?? Lymphatic and / or Vascular Invasion: ?Not identified ?? Tumor Configuration: ?Papillary ?? Muscularis Propria (detrusor muscle): ?Present in specimen ADDITIONAL FINDINGS ?? Associated Epithelial Lesions: ?None identified ?? Additional Findings: ?Cautery artifact 02/23/2024 9:16 [facility] Clinical History Bladder cancer 02/23/2024 9:16 [facility] Gross Description A. Received in formalin labelled with proper patient identification (initials D, C) and ? bladder tumor? are two rubbery and soft pink-villanueva tissue fragments, 0.4 x 0.3 x 0.2 cm and 0.6 x 0.4 x 0.4 cm. The larger tissue is bisected and entirely submitted with the smaller in A1. NAEEM ALONSO(ASCP) 02/19/2024 16:39 02/23/2024 9:16 EDT [facility] Performing Lab [facility] 02/23/2024 9:16 EDT [facility] Scanned Images 02/23/2024 9:16 EDT [facility] Tissue SPECIMEN FROM URINARY BLADDER / Unknown 02/19/2024 8:31 EDT 02/19/2024 16:29 EDT Lonnie Saxena MD PATHOLOGY ORDERAB LES [facility] [address] [place] [address] documented in this encounter Visit Diagnoses Diagnosis Malignant neoplasm of bladder, unspecified (HCC-CMS) documented in this encounter Care Teams Oil Developer Relationship Specialty Start Date End Date Edgar Marie MD [facility] [place] [address] PCP - General 03/24/17 documented as of this encounter
--- OUTSIDE RECORDS SUMMARY | 2024-09-03 17:50 | XMS_ITS | Encounter Summary ---
Author Organization [facility] Address [address] [place] [address] Care Team Providers Care Equal Opportunity Representative Name Role Phone Edgar Marie MD Primary Care Provider [phone] Encounter Details Date Type Department Care Team (Late st Contact Info) Description 07/30/2023 Lab Requisition [facility] Pathology & Laboratory Medicine - [facility] [address] [place], [place] [id number] Outr Resulting Lab, Provider Social History Tobacco Use Types Packs/Day Years Used Date Smoking Tobacco: Never Assessed Sex and Gender Information Value Date Recorded Sex Assigned at Not on file Gender Identity Not on file Sexual Orientation Not on file documented as of this encounter Plan of Treatment Not on file documented as of this encounter Procedures Procedure Name Priority Date/Time Associated Diagnosis Comments PSA TOTAL, DIAGNOSTIC Routine 07/29/2023 15:00 EDT documented in this encounter Results * PSA TOTAL, DIAGNOSTIC (07/29/2023 15:00 EDT) PSA 0.1 <=6.5 ng/mL 07/30/2023 18:21 EDT [facility] Blood VENOUS BLOOD / Unknown 07/29/2023 15:00 EDT 07/30/2023 17:13 EDT Narrative [facility] - 07/30/2023 18:21 EDT NOTE: Serum PSA concentration should not be interpreted as absolute evidence for the presence or absence of malignant disease. Assayed on Siemens ADVIA Reclip.Itaur XPT using chemiluminescent technology.??Values obtained by using different assay methods cannot be used interchangeably. Provider Outr Resulting Lab CHEMISTRY & BLOOD GAS ORDERABLES [facility] [address] [place] [address] documented in this encounter Visit Diagnoses Not on filedocumented in this encounter Care Teams Equal Opportunity Representative Relationship Specialty Start Date End Date Edgar Marie MD [address] [place] [address] PCP - General 03/24/17 documented as of this encounter
--- OUTSIDE RECORDS SUMMARY | 2024-09-03 17:50 | XMS_ITS ---
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 [id number]. 30% of left apex core had [place] 4+3 and 2% of right base core with [place] 3+4. SAMIR-, Pretreatment PSA of 8.2. 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 Past Plans No past plan information found. Radiation Treatments * No radiation treatments are documented for this patient in [facility]. Treatments may have been administered in another system. Treatment Summaries Prostate cancer* Cancer Treatment Summary Provided by Juli Silva on 08/29/16 General Information Patient name Marleny Martin (home) Date of 1940 Support contact Azul Quezada--step daughter Care Team Medical Oncologist No primary care provider on file. Surgeon/urologist Dr Edgar Escalante Radiation Oncologist Dr Edgar Colin Primary Care Physician BHUMI MOON Treatment Summary Chemotherapy and Supportive Care Treatment History Prostate Cancer Notes 08/26/2013 Date of Presentation 10/20/2008 Age at Presentation 68 PSA at Presentation 8.2 Presence of Symptoms at Presentation negative Ethnicity White Result of DOMINIQUE abnormal Date of TRUS and Biopsy 03/27/2009 Volume in cc 29.5 cc David grade/score a+b=c 4+3=7 Total Cores 14 cores Positive cores 2 cores Prostate confined yes SAMIR negative SV negative Regular Nodes normal Distant Mets none Date of MRI 05/11/2009 Urinary Continence at Presentation normal Primary Therapy EBRT EBRT Date Began 06/05/2009 ERBT Total Dose (Gy) 79.2 Gy Treatment Fractions 44 fractions Elapsed Date 08/08/2009 Concurrent ADT none Histologic Type Adenocarcinoma Post Treatment - Urinary Continence continent Post Treatment - Urinary Continence Assessment Date 08/26/2013 Late effects of radiation therapy Radiation proctitis --APC not required Post Primary Therapy - Elder Date 08/18/2015 Post Primary Therapy - Elder PSA 0.40 Lifetime Dose Tracking: No doses have been documented on this patient for the following tracked chemicals: doxorubicin, epirubicin, idarubicin, daunorubicin, mitoxantrone, bleomycin N/A Follow-up and Survivorship Care How Frequent? Coordinating Provider Radiation Oncology visits yearly Discharged from radiation oncology 09/2019 Lab tests PSA Primary care provider Imaging exams Only if PSA rises to >2.2 This would be considered biochemical failure and restaging studies including a bone scan and CT of the abdomen, and pelvis would be indicated and a referral to medical oncology Primary care provider to refer to medical oncology if PSA rises to 2.2 or higher Monitor for ongoing toxicities: Potential late effects of treatment(s): Late and ocean transportation intermediary effects or radiation therapy to the prostate include the followin. Changes in urinary flow due to fibrosis or scaring that can occur to the bladder neck. Let your cancer team know if you are having difficulty voiding 2. Blood in your urine could be due to previous radiation therapy. You may be at increased risk fora bladder tumor so this symptom needs to be evaluated if it occurs, with CT scans of your abdomen and pelvis and a test called a cystoscopy to look inside your bladder. You have an increased risk of having a bladder cancer so any bleeding needs to be evaluated. 3. Blood in your stool: Radiation therapy can cause some blood vessel changes to the lining of yourrectum called angioectasias. If you see blood in your stool you need to let your doctor know. 4. Erectile dysfunction can result from treatment 5. Incontinence Call your doctor if you have any of these signs and symptoms: Difficulty or changes in your urine flow Blood in your urine or stool New pain that does not go away after two weeks You should have a colonoscopy every five to ten years You should have your PSA checked as noted above. These recommendations are from the National cancercare Network (NCCN) guidelines. . Your PSA results have been as follows: Laboratory Studies: Date PSA Testosterone 09/03/2019 0.3 08/04/2018 0.3 08/18/2017 0.2 08/06/2016 0.40 08/18/2015 0.40 08/04/2014 0.50 0.50 02/11/2013 0.68 08/14/2012 0.85 02/26/2012 0.88 375 08/29/2011 1.03 375 02/26/2011 2.24 08/11/2010 2.67 05/03/2010 4.67 402 (range 181-772) 02/01/2010 4.42 10/23/2009 5.3 10/20/2008 8.2 Survivorship care provider contacts SMALL PIECE CUTTER: Juli Silva
--- OUTSIDE RECORDS SUMMARY | 2024-09-03 17:50 | XMS_ITS | Encounter Summary ---
Author Organization [facility] Address [facility] [place] [address] Care Team Providers Care Land Conservation Specialist Name Role Phone Edgar Marie MD Primary Care Provider [phone] Encounter Details Date Type Department Care Team (Latest Contact Info) Description 06/16/2024 9:27 AM EDT - 06/16/2024 11:59 PM EDT Hospital Encounter [place] [address] Sloane Leger APRN [facility] [place] [address] Hepatic cirrhosis, unspecified hepatic cirrhosis type, unspecified whether ascites present Discharge Disposition: Home Social History Tobacco Use Types Packs/Day Years Used Date Smoking Tobacco: Never Smokeless Tobacco: Never Comments:denies vaping Alcohol Use Standard Drinks/Week Comments No 0 (1 standard drink = 0.6 oz pur e alcohol) Sex and Gender Information Value Date Recorded Sex Assigned at Not on file Gender Identity Not on file Sexual Orientation Not on file documented as of this encounter Medications at Time of Discharge Medication Sig Dispensed Refills Start Date End Date chlorthalidone (Hygroten) 25 mg tablet 04/22/2023 Hyoscyamine Sulfate (Anaspaz) 0.125 mg Tablet, Rapid Dissolve DISSOLVE ONE TABLET BY MOUTH TWO TO FOUR TIMES PER DAY NEEDED FOR BLADDER SPASMS- MAX DAILY DOSE OF 4 11/26/2022 propranolol LA (Inderal LA) 80 mg Capsule,Sustained Action 24 hr 12/19/2022 acetaminophen (Tylenol) 325 mg Tablet Take 650 mg by mouth every 4 hours as needed for Pain. loratadine (Claritin) 10 mg Tablet TAKE 1 TABLET BY MOUTH ONCE DAILY FOR ALLERGIES 12/04/2019 losartan (COZAAR) 100 mg Tablet TAKE 1 TABLET BY MOUTH ONCE DAILY FOR BLOOD PRESSURE 05/20/2020 magnesium 250 mg Tablet Take by mouth. omeprazole (PRILOSEC) 20 mg Capsule, Delayed Release(E.C.) TAKE 1 CAPSULE BY MOUTH ONCE DAILY 3 07/31/2019 SPIRIVA RESPIMAT 2.5 mcg/actuation Mist INHALE 2 SPRAY(S) BY MOUTH ONCE DAILY 5 09/01/2019 albuterol (PROAIR HFA) 90 mcg/Actuation inhaler 08/24/2010 CALCIUM CARBONATE/VITAMIN D3 (CALCIUM 600 WITH VITAMIN D3 ORAL) 08/24/2010 documented as of this encounter Plan of Treatment Not on file documented as of this encounter Procedures Procedure Name Priority Date/Time Associated Diagnosis Comments US ABDOMEN LIMITED HEPATOLOGY PROTOCOL Routine 06/16/2024 10:04 AM EDT Hepatic cirrhosis, unspecified hepatic cirrhosis type, unspecified whether ascites present documented in this encounter Results * US Abdomen Limited Hepatology Protocol (06/16/2024 10:04 AM EDT) WORKSTATION ID [id number] [facility] Anatomical Region Laterality Modality Abdomen Ultrasound 06/16/2024 [...] Michele Azevedo MD at 06/16/2024 10:23 AM Electronically signed by: Michele Azevedo MD, [facility] ([phone]), at 06/16/2024 10:23 AM Thank you for letting us participate in the care of this patient. If you are a health care provider and have any questions regarding this report, please contact the number above. For patients who have questions, please contact the health campground caretaker that requested your imaging first. ? Michele Azevedo, Physician Electronically Signed Final Report ?? 06/16/2024 10:30 am Narrative 06/16/2024 10:30 AM EDT Abdominal ? (Signed Final 06/16/2024 10:30 am) PATIENT INFO: ID #: ? [id number] ?: ??[birth year] (83 yrs)(M) Name: ? MARLENY DIXON ? Visit Date: 06/16/2024 10:03 am PERFORMED BY: Attending: ?Roberto Carlos BERG, Michele Resident: ? Nick BERG, [facility] Performed By: ? Oracio Boyle RDMS Referred By: ?SLOANE LEGER Location: ? [place] [facility] - Hepat[facility] Protocol - Abdominal ?35447 Limited Survey Single Organ or Quadrant - [id number] INDICATIONS: cirrhosis, screen for hcc ------ LIVER: [...] 06/16/2024 10:30 am) PATIENT INFO: ID #: [id number] : [birth year] (83 yrs)(M) Name: MARLENY DIXON Visit Date: 06/16/2024 10:03 am PERFORMED BY: Attending: Michele Azevedo MD Resident: Nick BERG [facility] Performed By: Oracio Boyle RDMS Referred By: SLOANE LEGER Location: [place] SERVICE(S) PROVIDED: [facility] - Hepatology Protocol - Abdominal 63848 Limited Survey Single Organ or Quadrant - [id number] INDICATIONS: cirrhosis, screen for hcc ------ LIVER: [...] who have questions, please contact the health campground caretaker that requested your imaging first. Michele Azevedo, Physician Electronically Signed Final Report 06/16/2024 10:30 am Sloane Leger APRN IMG US GEN ORDERAB LES documented in this encounter Visit Diagnoses Diagnosis Hepatic cirrhosis, unspecified hepatic cirrhosis type, unspecified whether ascites present documented in this encounter Care Teams Land Conservation Specialist Relationship Specialty Start Date End Date Edgar Marie MD PCP - General Family Medicine 08/30/16 documented as of this encounter
--- OUTSIDE RECORDS SUMMARY | 2024-09-03 17:50 | XMS_ITS | Encounter Summary ---
Author Organization [facility] Address [address] [place] [address] Care Team Providers Care Sheet Pile Hammer Operator Name Role Phone Edgar Marie MD Primary Care Provider [phone] Encounter Details Date Type Department Care Team (Late st Contact Info) Description 09/22/2021 Lab Requisition [facility] Pathology & Laboratory Medicine - [address] [id number] Outr Resulting Lab, Provider Social History Tobacco [...] Associated Diagnosis Comments PSA TOTAL, DIAGNOSTIC Routine 09/21/2021 16:45 EDT documented in this encounter Results * PSA TOTAL, DIAGNOSTIC (09/21/2021 16:45 EDT) PSA 0.3 0.0 - 6.5 ng/mL 09/24/2021 9:48 EST [facility] Blood VENOUS BLOOD / Unknown 09/21/2021 16:45 EDT 09/23/2021 16:56 EST Narrative [facility] - 09/24/2021 9:48 EST NOTE: Serum PSA concentration should not be interpreted as absolute evidence for the presence or absence of malignant disease. Assayed on Siemens ADVIA Bridgeaur XPT using chemiluminescent technology.??Values obtained by using different assay methods cannot be used interchangeably. Provider Outr Resulting Lab CHEMISTRY & BLOOD GAS ORDERABLES [facility] [address] [place] [address] documented in this encounter Visit Diagnoses Not on filedocumented in this encounter Care Teams Sheet Pile Hammer Operator Relationship Specialty Start Date End Date Edgar Marie MD [address] [place] [address] PCP - General 03/24/17 documented as of this encounter
--- OUTSIDE RECORDS SUMMARY | 2024-09-03 17:50 | XMS_ITS | Encounter Summary ---
Author Organization [facility] Address [address] [place] [address] Care Team Providers Care Field Pipe Lines Supervisor Name Role Phone Unknown, Provider Primary Care Provider [phone] Encounter Details Date Type Department Care Team (Late st Contact Info) Description 03/20/2017 Results Only [facility] [phone] Lonnie Wiggins MD [address] [place] [address] [place] [phone] Social History Tobacco Use Types Packs/Day Years Used Date Smoking Tobacco: Never Assessed Sex and Gender Information Value Date Recorded Sex Assigned at Not on file Gender Identity Not on file Sexual Orientation Not on file documented as of this encounter Plan of Treatment Not on file documented as of this encounter Procedures Procedure Name Priority Date/Time Associated Diagnosis Comments SURGICAL PATHOLOGY Routine 03/20/2017 13 :06 EDT documented in this encounter Results * SURGICAL PATHOLOGY (03/20/2017 13:06 EDT) Pathology Report: SURGICAL PATHOLOGY REPORT Reports generated via electronic interface contain original data; however they are lacking the format of the original report. Caution should be taken when reading/interpreting unformatted reports. Name: ? MARLENY DIXON ? Accession #: ? [id number] ? : ? 1940 (Age: 76) ??M ? Collect Date: ? 03/20/2017 ? Location: ? [facility] ? Receive Date: ? 03/21/2017 ? Provider: LONNIE WIGGINS MD Copy to: ELIN THAPA MD ? Final Pathologic Diagnosis: BLADDER, BIOPSY: - Flat urothelium with focal papillary architecture. See comment. - No muscularis propria identified. Comment: Sections show flat urothelial epithelium with focal areas that exhibit papillary architecture. A papillary urothelial neoplasm of low malignant potential (PUNLMP) cannot be entirely excluded. Deeper sections have been examined. Drum Barker Operator slides of this case were reviewed at the intradepartmental consultation conference. Dr. Cheema 03/24/2017 9:37 AM Document reviewed and electronically signed by: CHRISTINA CHEEMA MD Report ??Date: 03/24/2017 16:10 By the signature above, the attending physician certifies that he/she has personally conducted a gross and/or microscopic examination of the described specimens and rendered or confirmed the above diagnosis. Specimen(s) Received: Bladder biopsy Clinical History: Microscopic hematuria Gross Description: ? Received in formalin labelled with proper patient identification (initials D, C) and bladder biopsy are three villanueva-white to villanueva-brown mottled tissues (0.3 x 0.2 x 0.1 cm, 0.3 x 0.2 x 0.2 cm ,and 0.4 x 0.2 x 0.1 cm). Entirely submitted in 1. Melissa Chen 03/21/2017 2:01 PM End of Report [facility] 03/20/2017 13:0 6 EDT 03/21/2017 13:06 EDT Lonnie Wiggins MD PATHOLOGY ORDERAB LES [facility] [address] [place] [address] documented in this encounter Visit Diagnoses Not on filedocumented in this encounter Care Teams Field Pipe Lines Supervisor Relationship Specialty Start Date End Date Unknown, Provider, PCP - General 03/21/17 03/23/17 documented as of this encounter
--- OUTSIDE RECORDS SUMMARY | 2024-09-03 17:50 | XMS_ITS | Encounter Summary ---
Author Organization [facility] Address [address] [place] [address] Care Team Providers Care Licensing Representative Name Role Phone Edgar Marie MD Primary Care Provider [phone] Encounter Details Date Type Department Care Team (Latest Contact Info) Description 11/15/2022 Lab Requisition [facility] Pathology & Laboratory Medicine - [address] [address] Lonnie Saxena MD [address] [place] [address] [place] [address] Hematuria, unspecified; Other retention of urine; Acute posthemorrhagic anemia; Neoplasm of unspecified behavior of bladder; Thrombocytopenia, unspecified ([facility]) Social History Tobacco Use Types Packs/Day Years Used Date Smoking Tobacco: Never Assessed Sex and Gender Information Value Date Recorded Sex Assigned at Not on file Gender Identity Not on file Sexual Orientation Not on file documented as of this encounter Plan of Treatment Not on file documented as of this encounter Procedures Procedure Name Priority Date/Time Associated Diagnosis Comments SURGICAL PATHOLOGY Today 11/14/2022 14 :10 EST Hematuria, unspecified documented in this encounter Results * SURGICAL PATHOLOGY (11/14/2022 14:10 EST) Note to Patient The following pathology results have been interpreted by your pathologist and may be available to you before your health provider has had the opportunity to review them. Please allow time for your provider to receive these results and explore management options, if applicable. 11/20/2022 9:57 EST [facility] Final Diagnosis A. BLADDER, TUMORS, TRANSURETHRAL RESECTION OF BLADDER TUMOR: - Low grade papillary urothelial carcinoma, non-invasive. See comment. - Muscularis propria present; negative for carcinoma. 11/20/2022 9:57 [facility] Diagnosis Comment Microscopic sections show a low grade papillary urothelial carcinoma with areas of inverted growth. In areas the papillary fronds show complex architecture with tangential sectioning, however, lamina propria invasion is not present. Ep Technologist slides of this case were reviewed at the intradepartmental consultation conference. 11/20/2022 9:57 [facility] Attestation By the signature below, the attending physician certifies that they have 1) personally conducted a gross and/or microscopic examination of the described specimen(s), and/or personally interpreted the results of laboratory testing of the described specimen(s), and 2) personally rendered or confirmed the above diagnosis. 11/20/2022 9:57 [facility] at 0957 Synoptic URINARY BLADDER: Biopsy and Transurethral Resection of Bladder Tumor (TURBT) URINARY BLADDER: BIOPSY AND TURBT - All Specimens 8th Edition - Protocol posted: 01/13/2019 SPECIMEN ?? Procedure: ?Transurethral resection of bladder (TURBT) TUMOR ?? Tumor Site: ?Not specified ?? Histologic Type: ?Papillary urothelial carcinoma, noninvasive ?? Histologic Grade: ?Low-grade ?? Tumor Extension: ?Noninvasive papillary carcinoma ?? Tumor Configuration: ?Papillary ?? Muscularis Propria Presence: ?Muscularis propria (detrusor muscle) present ?? Lymphovascular Invasion: ?Not identified 11/20/2022 9:57 [facility] Clinical History Bladder tumor, hx prostate Ca, treated with radiation tx 11/20/2022 9:57 [facility] Gross Description A. Received in formalin labelled with proper patient identification (initials D, C) and bladder tumors is an aggregate of villanueva and brown fragments of soft tissue that measures 1.1 x 0.6 x 0.5 cm. The specimen is submitted entirely in A1. GILDARDO FARMER 11/15/2022 7:31 11/20/2022 9:57 [facility] Performing Lab [facility] 11/20/2022 9:57 EST [facility] Scanned Images 11/20/2022 9:57 EST [facility] Tissue URINARY BLADDER BIOPSY SPECIMEN / Unknown 11/14/2022 14:10 EST 11/15/2022 4:31 EST Lonnie Saxena MD PATHOLOGY ORDERAB LES [facility] [address] [place] [address] documented in this encounter Visit Diagnoses Diagnosis Hematuria, unspecified Other retention of urine Acute posthemorrhagic anemia Neoplasm of unspecified behavior of bladder Thrombocytopenia, unspecified ([facility]) Thrombocytopenia, unspecified documented in this encounter Care Teams Licensing Representative Relationship Specialty Start Date End Date Edgar Marie MD [address] [place] [address] PCP - General 03/24/17 documented as of this encounter
--- OUTSIDE RECORDS SUMMARY | 2024-09-03 17:50 | XMS_ITS | Encounter Summary ---
Author Organization [facility] Address [address] [place] [address] Care Team Providers Care Spinning Lathe Operator Automatic Name Role Phone Edgar Marie MD Primary Care Provider [phone] Encounter Details Date Type Department Care Team (Late st Contact Info) Description 06/30/2023 Lab Requisition [facility] Pathology & Laboratory Medicine - [facility] [address] [place] [address] Lonnie Saxena MD [address] [place] [phone] Malignant neoplasm of bladder, unspecified (HCC-CMS) [...] Date/Time Associated Diagnosis Comments SURGICAL PATHOLOGY Today 06/30/2023 11 :20 EDT Malignant neoplasm of bladder, unspecified (HCC-CMS) documented in this encounter Results * SURGICAL PATHOLOGY (06/30/2023 11:20 EDT) Note to Patient The following pathology results have been interpreted by your pathologist and may be available to you before your health provider has had the opportunity to review them. Please allow time for your provider to receive these results and explore management options, if applicable. 07/03/2023 7:36 EDT [facility] Final Diagnosis A. URINARY BLADDER, BIOPSY: - Small superficial portions of papillar urothelial lesion. See comment. - No muscularis propria identified. - Cautery changes. 07/03/2023 7:36 EDT [facility] Diagnosis Comment The specimen predominantly consists of papillar fibrovascular cores with small focus of lining epithelium. Although there are no high-grade changes observed, the amount of the lining epithelium is extremely low, limiting detailed evaluation of the grade. Marked cautery changes also make the evaluation of this specimen difficult. Deeper levels of (A1) have been examined. The reports of prior urinary bladder specimens ([id number], [id number]) have been reviewed in conjunction with the current specimen. 07/03/2023 7:36 [facility] Attestation There was significant resident/fellow involvement in the diagnostic evaluation of this case. By the signature below, the attending physician certifies that they have personally conducted a gross and/or microscopic examination of the described specimens and rendered or confirmed the above diagnosis. 07/03/2023 7:36 [facility] at 0736 Clinical History Bladder cancer 07/03/2023 7:36 [facility] Gross Description A. Received in formalin labelled with proper patient identification (initials D, C) and bladder Bx is a 0.6 x 0.3 x 0.2 cm aggregate of red-brown blood clot and pink-villanueva soft tissue. The specimen is entirely submitted in A1. NAEEM PENNY(ASCP) 07/01/2023 8:01 07/03/2023 7:36 [facility] Resident/Alejandro w: Rena Medina MD 07/03/2023 7:36 T [facility] Performing Lab [facility] 07/03/2023 7:36 [facility] Scanned Images 07/03/2023 7:36 [facility] Tissue SPECIMEN FROM URINARY BLADDER / Unknown 06/30/2023 11:20 EDT 06/30/2023 22:44 EDT Lonnie Saxena MD PATHOLOGY ORDERAB LES [facility] [address] [place] [address] documented in this encounter Visit Diagnoses Diagnosis Malignant neoplasm of bladder, unspecified (HCC-CMS) documented in this encounter Care Teams Spinning Lathe Operator Automatic Relationship Specialty Start Date End Date Edgar Marie MD [facility] [place] [address] PCP - General 03/24/17 documented as of this encounter
--- OUTSIDE RECORDS SUMMARY | 2024-09-03 17:50 | XMS_ITS | Encounter Summary ---
Author Organization [facility] [place] [address] Care Team Providers Care Event Planning Intern Name Role Phone Edgar Marie MD Primary Care Provider [phone] Encounter Details Date Type Department Care Team (Latest Contact Info) Description 06/16/2024 Travel Social History Tobacco Use Types Packs/Day Years [...] on filedocumented in this encounter Care Teams Event Planning Intern Relationship Specialty Start Date End Date Edgar Marie MD PCP - General Family Medicine 08/30/16 documented as of this encounter
--- OUTSIDE RECORDS SUMMARY | 2024-09-03 17:50 | XMS_ITS | Encounter Summary ---
Author Organization [facility] Address [address] [place] [address] Care Team Providers Care Private Advisor Name Role Phone Edgar Marie MD Primary Care Provider [phone] Encounter Details Date Type Department Care Team (Late st Contact Info) Description 05/04/2022 Lab Requisition [facility] Pathology & Laboratory Medicine - [facility] [address] [place], [place] [phone] Outr Resulting Lab, Provider Social History Tobacco [...] Associated Diagnosis Comments PSA TOTAL, DIAGNOSTIC Routine 05/03/2022 15:15 EDT documented in this encounter Results * PSA TOTAL, DIAGNOSTIC (05/03/2022 15:15 EDT) PSA 0.3 <=6.5 ng/mL 05/06/2022 9:24 EDT [facility] Blood VENOUS BLOOD / Unknown 05/03/2022 15:15 EDT 05/05/2022 16:54 EDT Narrative [facility] - 05/06/2022 9:24 EDT NOTE: Serum PSA concentration should not be interpreted as absolute evidence for the presence or absence of malignant disease. Assayed on Siemens ADVIA Hi-Midiaaur XPT using chemiluminescent technology.??Values obtained by using different assay methods cannot be used interchangeably. Provider Outr Resulting Lab CHEMISTRY & BLOOD GAS ORDERABLES [facility] [address] [place] [address] documented in this encounter Visit Diagnoses Not on filedocumented in this encounter Care Teams Private Advisor Relationship Specialty Start Date End Date Edgar Marie MD [address] [place] [address] PCP - General 03/24/17 documented as of this encounter
--- OUTSIDE RECORDS SUMMARY | 2024-09-03 17:50 | XMS_ITS | Encounter Summary ---
Author Organization [facility] Address [address] [place] [address] Care Team Providers Care Jacquard Fixer Name Role Phone Edgar Marie MD Primary Care Provider [phone] Encounter Details Date Type Department Care Team (Late st Contact Info) Description 07/26/2024 Lab Requisition [facility] Pathology & Laboratory Medicine - [address] [address] Lonnie Saxena MD [address] [place] [phone] Encounter for other general examination Social History Tobacco Use Types Packs/Day Years [...] 50 EDT Encounter for other general examination documented in this encounter Results * SURGICAL PATHOLOGY (07/26/2024 7:50 EDT) Note to Patient The following pathology results have been interpreted by your pathologist and may be available to you before your health provider has had the opportunity to review them. Please allow time for your provider to receive these results and explore management options, if applicable. 07/29/2024 10:29 EDT [facility] Final Diagnosis A. BLADDER, TRANSURETHRAL RESECTION OF BLADDER TUMOR: - Low grade papillary urothelial carcinoma, non-invasive. See synoptic. - Muscularis propria present; negative for carcinoma. 07/29/2024 10:29 [facility] Attestation There was significant resident/fellow involvement in the diagnostic evaluation of this case. By the signature below, the attending physician certifies that they have personally conducted a gross and/or microscopic examination of the described specimens and rendered or confirmed the above diagnosis. 07/29/2024 10:29 [facility] at 1029 Synoptic URINARY [...] (detrusor muscle): ?Present in specimen 07/29/2024 10:29 [facility] Clinical History Bladder cancer 07/29/2024 10:29 [facility] Gross Description A. Received in formalin labelled with proper patient identification (initials D, C) and bladder resection are 2 rubbery white, villanueva, and guy tissue fragments (0.4 x 0.2 x 0.2 cm and 0.6 x 0.4 x 0.2 cm). The larger tissue is bisected. Entirely submitted in A1 Koki Davis 07/27/2024 7:49 07/29/2024 10:29 [facility] Resident/Alejandro w: Basilio Byrd MD 07/29/2024 10:29 [facility] Performing Lab [facility] 07/29/2024 10:29 [facility] Scanned Images 07/29/2024 10:29 [facility] Tissue SPECIMEN FROM URINARY BLADDER / Unknown 07/26/2024 7:50 EDT 07/26/2024 22:18 EDT Lonnie Saxena MD PATHOLOGY ORDERAB LES [facility] [address] [place] [address] documented in this encounter Visit Diagnoses Diagnosis Encounter for other general examination documented in this encounter Care Teams Jacquard Fixer Relationship Specialty Start Date End Date Edgar Marie MD [facility] [address] PCP - General 03/24/17 documented as of this encounter
--- NOTE | 2024-09-03 17:51 | DI.CT_ITS ---
Exam(s) CT HEAD WO EXAM: CT HEAD WO CLINICAL HISTORY: fatigue. fall. TECHNIQUE: Imaging Protocol: Axial computed tomography images with coronal and sagittal reformatted images were created and reviewed COMPARISON: No exams were available for comparison FINDINGS: There are no skull fractures. There is no fluid in the visualized paranasal sinuses. There is no evidence of intracranial hemorrhage, mass effect, or shift of midline structures. There are no extra-axial fluid collections. The ventricles are not enlarged or shifted and there is no blo od within the ventricular system nor within the basal cisterns. Symmetrical involutional change consistent with the patient's advanced age. The size of the lateral ventricles may be slightly out of proportion compared to the overlying cortical sulci. IMPRESSION: No obvious acute intracranial findings on this noninfused CT scan of the brain. There is met involutional change. Lateral ventricles are somewhat enlarged including temporal horns has is the 3rd ventricle. Perhaps slightly out of proportion when compared to the overlying cortical sulci. Therefore if there is a clinical triad of dementia, incontinence, gait disturbance than the possibility of normal pressure hydrocephalus should be considered. Discussed with ER physician 09/03/2024 at 6 p.m. RADIATION DOSE DELIVERED: 820.17mGy.cm Total DLP DATA REPOSITORY: All CT scans at this facility are submitted to the National Radiology Data Registry (NRDR) Dose Index Registry (DIR) with the [employer] [place] (ACR). RADIATION OPTIMIZATION: All CT scans at this facility use at least one of these dose optimization te chniques: automated exposure control; mA and/or kV adjustment per patient size (includes targeted exa ms where dose is matched to clinical indication); or iterative reconstruction.
--- NOTE | 2024-09-03 17:51 | DI.RAD_ITS ---
Exam(s) XR PELVIS AP EXAM: XR PELVIS AP CLINICAL HISTORY: fatigue fall. TECHNIQUE: 2D digital imaging was performed. COMPARISON: CT RENAL COLIC WO CONTRAST from 02/13/[address] CHEST PE CTA from 12/03/2021 FINDINGS: Single AP view of the pelvis There is no evidence of pelvic nor hip fracture. No lytic nor blastic osseous lesions identified. T here are 2 parallel radiation pins in the prostate gland, as seen on CT scan of January 2017. IMPRESSION: No acute osseous findings in the pelvis-hips. DATA REPOSITORY: RADIATION DOSE DELIVERED:
--- OUTSIDE RECORDS SUMMARY | 2024-09-03 17:51 | XMS_ITS | Encounter Summary ---
[place] [address] Care Team Providers Care Finance Advisor Name Role Phone Edgar Marie MD Primary Care Provider [phone] Encounter Details Date Type Department Care Team ([facility] st Contact Info) Description 11/05/2023 Telephone [place] [phone] Mary Soares Social History Tobacco Use Types Packs/Day Years [...] on filedocumented in this encounter Care Teams Finance Advisor Relationship Specialty Start Date End Date Edgar Marie MD PCP - General Family Medicine 08/30/16 documented as of this encounter
--- OUTSIDE RECORDS SUMMARY | 2024-09-03 17:51 | XMS_ITS | Encounter Summary ---
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 Social History Tobacco Use Types Packs/Day Years [...] Procedure Name Priority Date/Time Associated Diagnosis Comments HEMOGRAM Routine 11/08/2022 10:42 AM EST Cryptogenic cirrhosis DIFFERENTIAL, AUTOMATED Routine 11/08/2022 10:42 AM EST Cryptogenic cirrhosis HC VENIPUNCTURE Routine 11/08/2022 10:42 AM EST Cryptogenic cirrhosis HC PROTHROMBIN TIME Routine 11/08/2022 1 0:42 AM EST Cryptogenic cirrhosis HC CBC,PLT & AUTO DIFF Routine 10:42 AM EST Cryptogenic cirrhosis COMPREHENSIVE METABOLIC PANEL Routine 11/08/2022 10:42 AM EST Cryptogenic cirrhosis documented in this encounter Results * (ABNORMAL) Differential, Automated (11/08/2022 10:42 AM EST) Pathologist [facility] Neutrophil % 63.0 % [facility] Neutrophil Absolute 2.23 1.70 - 6.10 x10(3)/mc L [facility] Lymph % 21.8 % [facility] Lymphocytes Abs 0.8(L) 0.9 - 3.2 x10(3)/ L [facility] Monocyte % 6.2 % [facility] Monocyte Abs 0.2(L) 0.3 - 0.9 x10(3)/[facility] Eos % 7.6 % [facility] Eosinophils Abs 0.3 0.0 - 0.4 x10(3)/[facility] Basophil % 1.1 % [facility] Baso Absolute 0.0 0.0 - 0.1 x10(3)/[facility] Immature Gran % 0.30 % [facility] Comment: Immature granulocytes(IG's)percentage and absolute count will include metamyelocytes, myelocytes, and promyelocytes. Blood smears from CBCs yielding IG's will be scanned manually for concordance. If this scan disagrees with the automated IG or if promyelocytes are noted, a manual differential will be performed. Immature Gran Absolute 0.01 0.00 - 0.04 x10(3)/ L [facility] Blood 11/08/2022 10:4 2 AM EST 11/08/2022 10:52 AM EST Narrative Resulting Agency Comment Spec In Lab Miguel HARTLEY HEMATOLOGY ORDERABLE S [facility] [place] [address] * (ABNORMAL) Hemogram (11/08/2022 10:42 AM EST) White Blood Cell 3.5(L) 4.0 - 9.5 x10(3)/mc L [facility] Red Blood Cell 3.31(L) 4.58 - 5.54 x10(6)/mc L [facility] Hemoglobin 10.0(L) 13.7 - 16.5 g/dL [facility] Hematocrit 29.4(L) 40.5 - 48.5 % [facility] Mean Cell Volume 88.8 82.9 - 93.1 fL [facility] Mean Cell Hemoglobin 30.2 27.5 - 32.1 pg [facility] Mean Cell Hemoglobin Concentration 34.0 32.0 - 35.7 g/dL [facility] Platelet 56(L) 145 - 357 x10(3)/mc L [facility] RDW Standard Deviation 40.6 36.0 - 45.0 fL [facility] RDW coefficient of variation 12.5 11.4 - 13.8 % [facility] Mean Platelet Volume 11.8 7.6 - 12.9 fL [facility] NRBC% auto 0.0 % [facility] NRBC Absolute 0.000 0.000 - 0.000 x10(3)/mc L [facility] Blood 11/08/2022 10:4 2 AM EST 11/08/2022 10:52 AM EST Narrative Resulting Agency Comment Spec In Lab Miguel HARTLEY HEMATOLOGY ORDERABLE S [facility] [place] [address] * (ABNORMAL) Comprehensive metabolic panel (non-fasting) (11/08/2022 10:42 AM EST) Glucose 112 65 - 199 mg/dL [facility] Comment:Diabetes: >=200 mg/d L plus symptoms Blood Urea Nitrogen 16 10 - 20 mg/dL [facility] Creatinine 1.31 0.80 - 1.50 mg/dL [facility] Sodium 137 135 - 145 mmol/L [facility] Potassium 4.4 3.5 - 5.0 mmol/L [facility] Comment: Please note: ??Patients with WBC >100,000 may have falsely elevated Potassium levels. ??For accurate Potassium quantification in these patients send serum separator tube (gold top) for subsequent determinations. ??Contact the Clinical Chemistry Laboratory if there are any questions. Chloride 106 98 - 107 mmol/L [facility] Carbon Dioxide 22 22 - 31 mmol/L [facility] Anion Gap 9 5 - 15 mmol/L [facility] Calcium 8.8 8.5 - 10.5 mg/dL [facility] Protein, Total 7.5 6.1 - 8.0 g/dL [facility] Albumin 3.0(L) 3.2 - 5.2 g/dL [facility] Aspartate Aminotransferase 26 0 - 39 unit/L [facility] Alanine Aminotransferase 17 0 - 55 unit/L [facility] Alkaline Phosphatase 144(H) 40 - 130 unit/L [facility] Bilirubin, Total 1.1 0.2 - 1.3 mg/dL [facility] Est Glomerular Filtration Rate 55(L) >=60 mL/min/1. 73 m?? [facility] Comment: This patient's estimated GFR was [...] and symptoms in addition to eGFR. Blood 11/08/2022 10:4 2 AM EST 11/08/2022 10:52 AM EST Narrative Resulting Agency Comment Spec In Lab Dia Soot MD CHEMISTRY ORDERABLES [facility] [place] [address] * (ABNORMAL) Prothrombin Time (11/08/2022 10:42 AM EST) Prothrombin Time 15.1(H) 9.4 - 12.5 sec [facility] International Normalization Ratio 1.3 [facility] Comment: An INR <2.0 indicates adequate procoagulant activity for hemostasis in most patients without underlying bleeding disorders, though the INR may not adequately reflect hemostatic capacity in patients with liver disease and synthetic impairment. The recommended target INR range for therapeutic anticoagulation is 2.0 ? 3.0 for most applications, though lower and higher ranges may be appropriate depending on clinical circumstances. Blood 11/08/2022 10:4 2 AM EST 11/08/2022 10:52 AM EST Narrative Resulting Agency Comment Spec In Lab Dia Soto MD HEMATOLOGY ORDERABLE S [facility] [place] [address] * AFP tumor marker (11/08/2022 10:42 AM EST) Alpha Fetoprotein 3.4 <=8.3 ng/mL [facility] Comment: This result was generated using a Kiah Mikaela immunoassay. ??Results obtained from other methods or manufacturers cannot be used interchangeably with this method. 

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
--- OUTSIDE RECORDS SUMMARY | 2024-09-03 17:51 | XMS_ITS | Encounter Summary ---
Author Organization [facility] [place] [address] Care Team Providers Care Travel Journalist Name Role Phone Edgar Marie MD Primary Care Provider [phone] Encounter Details Date Type Department Care Team (Late st Contact Info) Description 11/08/2020 [place] [address] Silva Morris MD [facility] [place] [address] Social History Tobacco Use Types Packs/Day Years Used Date Smoking Tobacco: Never Smokeless Tobacco: Never Alcohol Use Standard Drinks/Week Comments No 0 (1 standard drink = 0.6 oz pur e alcohol) Sex and Gender Information Value Date Recorded Sex Assigned at Not on file Gender Identity Not on file Sexual Orientation Not on file documented as of this encounter Miscellaneous Notes * Telephone Encounter - Silva Morris - 11/08/2020 12:20 PM EST Accuracy of Stool-based FIT Testing in Older Adults PI: Silva Morris MD and Pati Hayden MD, MS I spoke with Marleny Martin today regarding the above titled study. I reviewed the consent with Marleny Martin in detail, and all questions were answered to Marleny Martin's satisfaction. Per the IRB approved study plan, Marleny Martin verbally consented to participate. Marleny Martin was told they could call me, the medical services coordinator, at any time with questions or concerns about the study. Marleny Martin is in agreement with this plan. documented in this encounter Plan of Treatment Not on file documented as of this encounter Visit Diagnoses Diagnosis Screening for colon cancer- Primary Special screening for malignant neoplasms, colon documented in this encounter Care Teams Travel Journalist Relationship Specialty Start Date End Date Edgar Marie MD PCP - General Family Medicine 08/30/16 documented as of this encounter
--- OUTSIDE RECORDS SUMMARY | 2024-09-03 17:51 | XMS_ITS | Encounter Summary ---
Author Organization [facility] [place] [address] Care Team Providers Care Bridge Crane Operator Name Role Phone Edgar Marie MD Primary Care Provider [phone] Encounter Details Date Type Department Care Team (Latest Contact Info) Description 11/08/2022 Travel Social History Tobacco Use Types Packs/Day [...] on filedocumented in this encounter Care Teams Bridge Crane Operator Relationship Specialty Start Date End Date Edgar Marie MD PCP - General Family Medicine 08/30/16 documented as of this encounter
--- OUTSIDE RECORDS SUMMARY | 2024-09-03 17:51 | XMS_ITS | Encounter Summary ---
[place] [address] Care Team Providers Care Print Cutter Name Role Phone Edgar Marie MD Primary Care Provider [phone] Encounter Details Date Type Department Care Team (Latest Contact Info) Description 01/08/2021 9:00 AM EST Laboratory Appointment Lab [address] [place] [phone] Cirrhosis of liver without ascites, unspecified hepatic cirrhosis type Social History Tobacco Use Types Packs/Day Years [...] Priority Date/Time Associated Diagnosis Comments HEMOGRAM Routine 01/08/2021 9:48 AM EST Cirrhosis of liver without ascites, unspecified hepatic cirrhosis type DIFFERENTIAL, AUTOMATED Routine 01/08/2021 9:48 AM EST Cirrhosis of liver without ascites, unspecified hepatic cirrhosis type IRON AND TIBC Routine 01/08/2021 9:48 AM EST HC VENIPUNCTURE Routine 01/08/2021 9:48 AM EST Cirrhosis of liver without ascites, unspecified hepatic cirrhosis type HC CBC,PLT & AUTO DIFF Routine 9:48 AM EST Cirrhosis of liver without ascites, unspecified hepatic cirrhosis type COMPREHENSIVE METABOLIC PANEL Routine 01/08/2021 9:48 AM EST Cirrhosis of liver without ascites, unspecified hepatic cirrhosis type documented in this encounter Results * (ABNORMAL) Iron and TIBC (01/08/2021 9:48 AM EST) [facility] Iron 47 45 - 160 mcg/dL [facility] TIBC 334 250 - 450 mcg/dL [facility] Iron Saturation 14(L) 20 - 50 % [facility] Blood specimen (specimen) Venous Draw / Unknown 01/08/2021 9:48 AM EST 01/08/2021 10:17 AM EST Narrative Resulting Agency Comment Spec In Lab Miguel HARTLEY CHEMISTRY ORDERABLES Performing Organization Address City/State/[facility] Co de Phone Number [facility] [place] [address] * (ABNORMAL) Differential, Automated (01/08/2021 9:48 AM EST) [facility] Neutrophil % 69.4 % [facility] Neutrophil Absolute 2.57 1.70 - 6.10 x10(3)/mc L [facility] Lymph % 19.5 % [facility] Lymphocytes Abs 0.7(L) 0.9 - 3.2 x10(3)/mc L [facility] Monocyte % 5.7 % [facility] Monocyte Abs 0.2(L) 0.3 - 0.9 x10(3)/mc L [facility] Eos % 4.3 % [facility] Eosinophils Abs 0.2 0.0 - 0.4 x10(3)/mc L [facility] Basophil % 0.8 % [facility] Baso Absolute 0.0 0.0 [...] Absolute 0.01 0.00 - 0.04 x10(3)/ L [facility] Blood specimen (specimen) 01/08/2021 9:48 AM EST 01/08/2021 10:04 AM EST Narrative Resulting Agency Comment Spec In Lab Miguel HARTLEY HEMATOLOGY ORDERABLE S Performing Organization Address City/State/[facility] Co de Phone Number [facility] [place] [address] * (ABNORMAL) Hemogram (01/08/2021 9:48 AM EST) White Blood Cell 3.7(L) 4.0 - 9.5 x10(3)/[facility] Red Blood Cell 3.77(L) 4.58 - 5.54 x10(6)/[facility] Hemoglobin 9.9(L) 13.7 - 16.5 gm/dL [facility] Hematocrit 31.3(L) 40.5 - 48.5 % [facility] Mean Cell Volume 83.0 82.9 - 93.1 fL [facility] Mean Cell Hemoglobin 26.3(L) 27.5 - 32.1 pg [facility] Mean Cell Hemoglobin Concentration 31.6(L) 32.0 - 35.7 gm/dL [facility] Platelet 74(L) 145 - 357 x10(3)/[facility] RDW Standard Deviation 42.7 36.0 - 45.0 fL [facility] RDW coefficient of variation 14.1(H) 11.4 - 13.8 % [facility] Mean Platelet Volume 12.6 7.6 - 12.9 fL [facility] NRBC% auto 0.0 % [facility] NRBC Absolute 0.000 0.000 - 0.000 x10(3)/mc L [facility] Blood specimen (specimen) 01/08/2021 9:48 AM EST 01/08/2021 10:04 AM EST Narrative Resulting Agency Comment Spec In Lab Miguel HARTLEY HEMATOLOGY ORDERABLE S [facility] [place] [address] * (ABNORMAL) Comprehensive metabolic panel (non-fasting) (01/08/2021 9:48 AM EST) Glucose 94 65 - 199 mg/dL [facility] Comment:Diabetes: >=200 mg/d L plus symptoms Blood Urea Nitrogen 14 10 - 20 mg/dL [facility] Creatinine 1.27 0.80 - 1.50 mg/dL [facility] Sodium 141 135 - 145 mmol/L [facility] Potassium 4.2 3.5 - 5.0 mmol/L [facility] Comment: Please note: ??Patients with WBC >100,000 may have falsely elevated Potassium levels. ??For accurate Potassium quantification in these patients send serum separator tube (gold top) for subsequent determinations. ??Contact the Clinical Chemistry Laboratory if there are any questions. Chloride 107 98 - 107 mmol/L [facility] Carbon Dioxide 26 22 - 31 mmol/L [facility] Anion Gap 8 5 - 15 mmol/L [facility] Calcium 9.0 8.5 - 10.5 mg/dL [facility] Protein, Total 8.4(H) 6.1 - 8.0 gm/dL [facility] Albumin 3.3 3.2 - 5.2 gm/dL [facility] Aspartate Aminotransferase 22 0 - 39 unit/L [facility] Alanine Aminotransferase 15 0 - 55 unit/L [facility] Alkaline Phosphatase 160(H) 40 - 130 unit/L [facility] Bilirubin, Total 0.7 0.2 - 1.3 mg/dL [facility] Est Glomerular Filtration Rate 54(L) >=60 mL/min/1. 73 m?? [facility] Comment: This patient? s estimated glomerular filtration rate (eGFR) is between 54 mL/min/1.73 m2 (patients with less muscle mass per kg body weight) and 62 mL/min/1.73 m2 (patients with more muscle mass per kg body weight) as determined by the CKD-EPI equation. Assessment of eGFR is not appropriate when creatinine concentrations are rapidly changing. For clinical decisions where creatinine clearance will affect therapy, a 24-hour urine creatinine clearance may be advised. Assignment of CKD stage 1 ? 5 for patients with an eGFR near the transition point between stages may be based on clinical assessment of muscle mass and symptoms in addition to eGFR. Blood specimen (specimen) 01/08/2021 9:48 AM EST 01/08/2021 10:04 AM EST Narrative Resulting Agency Comment Spec In Lab Dia Soto MD CHEMISTRY ORDERABLES [facility] [place] [address] * (ABNORMAL) Prothrombin Time (01/08/2021 9:48 AM EST) Prothrombin Time 15.1(H) 9.4 - 12.5 sec [facility] International Normalization Ratio 1.3 [facility] Comment: An [...] be appropriate depending on clinical circumstances. Blood specimen (specimen) 01/08/2021 9:48 AM EST 01/08/2021 10:04 AM EST Narrative Resulting Agency Comment Spec In Lab Dia Soto MD HEMATOLOGY ORDERABLE S Performing Organization Address City/State/[facility] Co de Phone Number [facility] [place] [address] documented in this encounter Visit Diagnoses Diagnosis Cirrhosis of liver without ascites, unspecified hepatic cirrhosis type documented in this encounter Care Teams Print Cutter Relationship Specialty Start Date End Date Edgar Marie MD PCP - General Family Medicine 08/30/16 documented as of this encounter
--- OUTSIDE RECORDS SUMMARY | 2024-09-03 17:51 | XMS_ITS | Encounter Summary ---
Author Organization [facility] [place] [address] Care Team Providers Care Audit Clerks Supervisor Name Role Phone Edgar Marie MD Primary Care Provider [phone] Encounter Details Date Type Department Care Team ([facility] st Contact Info) Description 09/25/2021 [place] [phone] Ashlyn Bishop Social History Tobacco Use Types Packs/Day Years [...] encounter Miscellaneous Notes * Telephone Encounter - Ashlyn Bishop - 09/25/2021 10:16 AM EST Placed outgoing phone call to patient in order to schedule a procedure. Phone Call Outcome: Left voicemail asking for return call. This was the 1st attempt If the call is returned, it can be handled by: [facility] [employer] documented in this encounter Plan of Treatment Not on file documented as of this encounter Visit Diagnoses Not on filedocumented in this encounter Care Teams Audit Clerks Supervisor Relationship Specialty Start Date End Date Edgar Marie MD PCP - General Family Medicine 08/30/16 documented as of this encounter
--- OUTSIDE RECORDS SUMMARY | 2024-09-03 17:51 | XMS_ITS | Encounter Summary ---
Author Organization [facility] Address [facility] [place] [address] Care Team Providers Care Co Founder And Ceo Name Role Phone Edgar Marie MD Primary Care Provider [phone] Encounter Details Date Type Department Care Team (Late st Contact Info) Description 10/28/2023 11:00 AM EST Office [place] [id number] Sloane Leger APRN [facility] [place] [address] Hepatic cirrhosis, unspecified hepatic cirrhosis type, unspecified whether ascites present Social History Tobacco Use Types Packs/Day Years Used Date Smoking Tobacco: Never Smokeless Tobacco: Never Comments:denies vaping Alcohol Use Standard Drinks/Week Comments No 0 (1 standard drink = 0.6 oz pur e alcohol) Sex and Gender Information Value Date Recorded Sex Assigned at Not on file Gender Identity Not on file Sexual Orientation Not on file documented as of this encounter Last Filed Vital Signs Vital Sign Reading Time Taken Comments Blood Pressure 123/76 10/28/2023 10:41 AM EST Pulse 66 10/28/2023 10:41 AM EST Temperature - - Respiratory Rate - - Oxygen Saturation - - Inhaled Oxygen Concentration - - Weight 75.5 kg (166 lb 6.4 oz) 10/28/2023 10:41 AM EST Height 165.1 cm (5' 5) 10/28/2023 10:41 AM EST Body Mass Index 27.69 10/28/2023 10:41 AM EST documented in this encounter Progress Notes * Sloane Leger, MATE FISHING VESSEL - 10/28/2023 11:00 AM EST Hepatology Follow Up Note Patient: Marleny Dixon Gender: male : 1940 Provider: Sloane Leger NP Referring Physician: Edgar Marie MD LIVER HISTORY Cirrhosis, cryptogenic, 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, internal hemorrhoids Repeat colo 12/27/21 for rectal bleeding similar findings -EGD 12/27/21: small EV, repeat 1 year On propranolol 80 mg as of Dec 2022, no need for repeat varices surveillance -Imaging: US 04/28/23 with no liver lesions, cirrhotic liver, no ascites, normal biliary tree, cholelithiasis, SM0 BRBPR with anemia -Likely d/t AVMs/radiation proctitis -Normal colonoscopy 2010 per PCP notes -No h/o melena per pt -Last colo 12/2021 with AVMs, likely will contribute to have intermittent bleeding PROBLEM LIST Patient Active Problem List Diagnosis Code Prostate cancer C61 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 Marleny Dixon is 83 y.o. with a history of cirrhosis with portal hypertension. He was previouslyfollowed by my collegue, Berny Hinds, and returns today for follow up. He had an ultrasound earliertoday. He started propanolol 80mg ER for primary prophylaxis last year, has been tolerating well. Over thanksvieng he went into [facility] for bleeding from his rump He was in the ICU for 3 days. Potasium was off. Blood sugar was off. Had bright red blood per rectum, thought to be due to radiation proctitis and had AVMs on his last colonsocopy which could contribute. Told to keep and eye on it. Had a cough when inpatient, told bronchitis. Had an echocardiogram when admitted (?). Bleeding stopped, gave him medicine (gell like pill, for his cough?). Gave a ointment to put in his rump - was a gel - unclear what this was Has not had any bleeding. Stools have been fine. No constipation. A year ago he had blood coming from his urethra, had low grade urothelial cancer diagnosed at that time (11/05/2022) Had prostate cancer treated in 2008 years ago with radiation. Had Colonsocopy in 12/2021 which showed signs of radiation proctitis and colonic AVMs Used to take an iron supplements, but states Dr. Marie stopped it. He was taking aspirin, but stopped taking that after his bleeing episode. MEDICATIONS: Current Outpatient Medications Medication Sig Dispense Refill chlorthalidone (Hygroten) 25 mg tablet Hyoscyamine Sulfate (Anaspaz) 0.125 mg Tablet, Rapid Dissolve DISSOLVE ONE TABLET BY MOUTH TWO TO FOUR TIMES PER DAY NEEDED FOR BLADDER SPASMS- MAX DAILY DOSE OF 4 propranolol LA (Inderal LA) 80 mg Capsule,Sustained Action 24 hr aspirin 81 mg Tablet, Chewable Take by mouth. acetaminophen (Tylenol) 325 mg Tablet Take 650 mg by mouth every 4 hours as needed for Pain. loratadine (Claritin) 10 mg Tablet TAKE 1 TABLET BY MOUTH ONCE DAILY FOR ALLERGIES losartan (COZAAR) 100 mg Tablet TAKE 1 TABLET BY MOUTH ONCE DAILY FOR BLOOD PRESSURE magnesium 250 mg Tablet Take by mouth. omeprazole (PRILOSEC) 20 mg Capsule, Delayed Release(E.C.) TAKE 1 CAPSULE BY MOUTH ONCE DAILY 3 SPIRIVA RESPIMAT 2.5 mcg/actuation Mist INHALE 2 SPRAY(S) BY MOUTH ONCE DAILY 5 albuterol (PROAIR HFA) 90 mcg/Actuation inhaler CALCIUM CARBONATE/VITAMIN D3 (CALCIUM 600 WITH VITAMIN D3 ORAL) No current facility-administered medications for this visit. 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 PHYSICAL EXAMINATION: Vitals: 10/28/23 1041 BP: 123/76 BP Location ([facility]): Right arm Patient Position: Sitting BP Cuff Sizes: Large Adult (32-43 cm) Pulse: 66 Weight: 75.5 kg (166 lb 6.4 oz) Height: 165.1 cm (5' 5) Body mass index is 27.69 kg/m??. Constitutional: Well appearing elderly man, appropriate, no acute distress Skin: Pale, no cyanosis, no palmar erythema, no jaundice, no spider angiomata Head: Normocephalic, sclerae anicteric Abdomen: Nondistended, nontender Neurologic: Alert and oriented x 3, no asterixis or tremor Extremities: No edema, no clubbing, no muscle wasting, no joint swelling PERTINENT LABS AND IMAGING: Recent Results (from the past 24 hour(s)) Ferritin Result Value Ref Range Ferritin 80 31 - 409 ng/mL Iron and TIBC Result Value Ref Range Iron 88 45 - 160 mcg/dL TIBC 233 (L) 250 - 450 mcg/dL Iron Saturation 38 20 - 50 % AFP tumor marker Result Value Ref Range AFP 2.7 <=8.3 ng/mL Prothrombin Time Result Value Ref Range PT 15.3 (H) 9.4 - 12.5 sec INR 1.4 Comprehensive metabolic panel (non-fasting) Result Value Ref Range Glucose Lvl 119 65 - 199 mg/dL BUN 21 (H) 10 - 20 mg/dL Creatinine 1.25 0.80 - 1.50 mg/dL Sodium 142 135 - 145 mmol/L Potassium 4.6 3.5 - 5.0 mmol/L Chloride 112 (H) 98 - 107 mmol/L CO2 22 22 - 31 mmol/L Anion Gap 8 5 - 15 mmol/L Calcium 8.7 8.5 - 10.5 mg/dL Total Protein 7.0 6.1 - 8.0 g/dL Albumin 2.9 (L) 3.2 - 5.2 g/dL AST 30 0 - 39 unit/L ALT 21 0 - 55 unit/L Alk Phos 209 (H) 40 - 130 unit/L Total Bilirubin 1.0 0.2 - 1.3 mg/dL Estimated GFR 58 (L) >=60 mL/min/1.73 m?? Hemogram Result Value Ref Range WBC 3.5 (L) 4.0 - 9.5 x10(3)/mcL RBC 3.09 (L) 4.58 - 5.54 x10(6)/mcL Hemoglobin 9.1 (L) 13.7 - 16.5 g/dL Hematocrit 28.6 (L) 40.5 - 48.5 % MCV 92.6 82.9 - 93.1 fL MCH 29.4 27.5 - 32.1 pg MCHC 31.8 (L) 32.0 - 35.7 g/dL Platelets 72 (L) 145 - 357 x10(3)/mcL RDWSD 56.0 (H) 36.0 - 45.0 fL RDWCV 16.6 (H) 11.4 - 13.8 % MPV 13.0 (H) 7.6 - 12.9 fL nRBC % Auto 0.0 % nRBC Abs Auto 0.000 0.000 - 0.000 x10(3)/mcL Differential, Automated Result Value Ref Range Neutrophils % 57.1 % Neutr Abs (ANC) 1.99 1.70 - 6.10 x10(3)/mcL Lymphocytes % 27.5 % Lymphocytes Abs 1.0 0.9 - 3.2 x10(3)/mcL Monocytes % 7.7 % Monocyte Abs 0.3 0.3 - 0.9 x10(3)/mcL Eosinophils % 6.3 % Eosinophils Abs 0.2 0.0 - 0.4 x10(3)/mcL Basophils % 1.1 % Basophils Abs 0.0 0.0 - 0.1 x10(3)/mcL Immature Gran % 0.30 % Sadie Gran Abs 0.01 0.00 - 0.04 x10(3)/mcL MELD 3.0: 15 at 04/28/2023 9:39 AM MELD-Na: 15 at 04/28/2023 9:39 AM Calculated from: Serum Creatinine: 1.48 mg/dL at 04/28/2023 9:39 AM Serum Sodium: 140 mmol/L (Using max of 137 mmol/L) at 04/28/2023 9:39 AM Total Bilirubin: 1.3 mg/dL at 04/28/2023 9:39 AM Serum Albumin: 3.1 g/dL at 04/28/2023 9:39 AM INR(ratio): 1.4 at 04/28/2023 9:39 AM Age at listing (hypothetical): 82 years Sex: Male at 04/28/2023 9:39 AM Endoscopy: EGD 12/27/21 (Dr. Santiago): Impression: - Small (< 5 mm) esophageal varices. - Z-line regular, 36 cm from the incisors. - Portal hypertensive gastropathy. - Normal examined duodenum. - No specimens collected. Recommendation: - Return to GI/Hepatology clinic. Colonoscopy 12/27/21: Impression: - Anal stricture found on digital rectal exam. - Multiple small non-bleeding colonic angioectasias in the distal rectum. - Mucosal changes consistent with radiation proctitis and mild stenosis/stricture in the rectum. - The examined portion of the ileum was normal. - No specimens collected. Recommendation: - Likely there will be some intermittent minor bleeding. - Suggest keeping stool soft. Use a fiber supplement such as Benefiber or Metamucil daily and Miralax as needed or daily as well. - No repeat colonoscopy due to age. Imaging: Ultrasound 10/28/2023: IMPRESSION 1. Coarse liver parenchyma with capsular nodularity, consistent with known cirrhosis. No sonographically evident hepatic mass. 2. No intra-abdominal ascites. 3. Cholelithiasis redemonstrated without evidence of acute cholecystitis or biliary ductal dilatation. ASSESSMENT & PLAN: Marleny Dixon is a 83 y.o. 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 He does have a history of regular alcohol use and some metabolic risks for fatty liver, and with elevated CAP score on FibroScan likely has some degree of steatohepatitis. He has very well compensated, Tizzt-Ooebhgry-Ndcj class A cirrhosis. From a liver perspective he has been relatively stable, tolerateing Propanolol well, and although heart rate today is slightly high I will leave at current dose because previously his heart rate was at goal. Other GI history recent hem includes radiation proctitis following treatment for prostate cancer and intermittent hematochezia. He recently appears to have had a more significant episode of hematochezia, although I do not have the records from [facility]. His last colonsocopy in 2020 showed AVMs in his distal rectum which could potentially be treated with APC to decrease his likelihood of bleeding. This treatment could be done through a flexible sigmoidoscopy (from prior discussion with hepatology group). Disucssed this with the patient and he would like to discuss with his PCP, Dr. Marie, before deciding for a repeat scope for this. Plan: - Recommend consideration of iron supplement - he will check with his PCP because he believes Dr. Marie stopped this in the past (possibly caused constipation?) - Consider fiber supplementation. - We discussed doing at flexible sigmoidoscopy to consider treatment of his AVMs, as this could have contributed to his rectal beedling. He would like to discuss with his PCP, Dr. Marie, who he is seeing next month and then get back in touch. - Follow up in 6 months with labs, US and vsiit. - Continue Propanolol 80mg daily. . Time spent reviewing records prior to this encounter:5 minutes Time spent during encounter with patient including counselin minutes Time spent documenting encounter on date of service: 12 minutes Approximate total time devoted to this single encounter on date of service: 40 minutes Sloane Leger APRN Section of Gastroenterology [place] [address] Cc: Edgar Marie MD @PCPADD@ documented in this encounter Plan of Treatment Not on file documented as of this encounter Results * (ABNORMAL) Prothrombin Time (06/16/2024 10:38 AM EDT) Prothrombin Time 17.3(H) 9.4 - 12.5 sec [facility] International Normalization Ratio 1.5 [facility] Comment: An INR <2.0 indicates [...] Narrative Resulting Agency Comment Spec In Lab Sloane Leger APRN HEMATOLOGY ORDERAB LES [facility] [place] [address] * (ABNORMAL) Comprehensive metabolic panel (non-fasting) (06/16/2024 10:38 AM EDT) Pathologist [facility] Glucose 112 65 - 199 mg/dL [facility] Comment:Diabetes: >=200 mg/d L plus symptoms Blood Urea Nitrogen 18 10 - 20 mg/dL [facility] Creatinine 1.53(H) 0.80 - 1.50 mg/dL [facility] Sodium 142 135 - 145 mmol/L [facility] Potassium 4.3 3.5 - 5.0 mmol/L [facility] Comment: Please note: ??Patients with WBC >100,000 may have falsely elevated Potassium levels. ??For accurate Potassium quantification in these patients send serum separator tube (gold top) for subsequent determinations. ??Contact the Clinical Chemistry Laboratory if there are any questions. Chloride 109(H) 98 - 107 mmol/L [facility] Carbon Dioxide 20(L) 22 - 31 mmol/L [facility] Anion Gap 13 5 - 15 mmol/L [facility] Calcium 8.9 8.5 - 10.5 mg/dL [facility] Protein, Total 7.4 6.1 - 8.0 g/dL [facility] Albumin 2.9(L) 3.2 - 5.2 g/dL [facility] Aspartate Aminotransferase 32 0 - 39 unit/L [facility] Alanine Aminotransferase 17 0 - 55 unit/L [facility] Alkaline Phosphatase 163(H) 40 - 130 unit/L [facility] Bilirubin, Total 2.1(H) 0.2 - 1.3 mg/dL [facility] Est Glomerular Filtration Rate 45(L) >=60 mL/min/1. 73 m?? [facility] Comment: This patient's estimated GFR [...] Narrative Resulting Agency Comment Spec In Lab Sloane Leger MATE FISHING VESSEL CHEMISTRY ORDERABL ES [facility] [place] [address] * US Abdomen Limited Hepatology Protocol (06/16/2024 10:04 AM EDT) WORKSTATION ID [id number] RAD Anatomical Region Laterality Modality Abdomen Ultrasound [...] who have questions, please contact the health account executive healthcare that requested your imaging first. ? Michele Azevedo, Physician Electronically Signed Final Report ?? 06/16/2024 10:30 am Narrative 06/16/2024 10:30 AM EDT Abdominal ? (Signed Final 06/16/2024 10:30 am) PATIENT INFO: ID #: ? [id number] ?: ??[birth year] (83 yrs)(M) Name: ? MARLENY DIXON ? Visit Date: 06/16/2024 10:03 am PERFORMED BY: Attending: ?Michele Azevedo MD Resident: ? Nick BERG, [facility] Performed By: ? [place] GRIMM, Oracio Referred By: ?SLOANE LEGER Location: ? [place] [facility] Hepatology Protocol - Abdominal ?[id number] Limited Survey Single Organ or Quadrant - [id number] INDICATIONS: cirrhosis, screen for hcc ------ LIVER: [...] 06/16/2024 10:30 am) PATIENT INFO: ID #: [id number] : [birth year] (83 yrs)(M) Name: MARLENY DIXON Visit Date: 06/16/2024 10:03 am PERFORMED BY: Attending: Michele Azevedo MD Resident: Abebe Romero MD Performed By: Oracio Boyle RDMS Referred By: SLOANE LEGER Location: [place] SERVICE(S) PROVIDED: [facility] - Hepatology Protocol - Abdominal [id number] Limited Survey Single Organ or Quadrant - [id number] INDICATIONS: cirrhosis, screen for hcc ------ LIVER: [...] who have questions, please contact the health account executive healthcare that requested your imaging first. Michele Azevedo Physician Electronically Signed Final Report 06/16/2024 10:30 am Sloane Leger APRN IMG GEN ORDERAB LES documented in this encounter Visit Diagnoses Diagnosis Hepatic cirrhosis, unspecified hepatic cirrhosis type, unspecified whether ascites present Hepatic cirrhosis, unspecified hepatic cirrhosis type, unspecified whether ascites present documented in this encounter Care Teams Co Founder And Ceo Relationship Specialty Start Date End Date Edgar Marie MD PCP - General Family Medicine 08/30/16 documented as of this encounter
--- OUTSIDE RECORDS SUMMARY | 2024-09-03 17:51 | XMS_ITS | Encounter Summary ---
Author Organization [facility] [place] [address] Care Team Providers Care Rn Pediatric Name Role Phone Edgar Marie MD Primary Care Provider Encounter Details Date Type Department Care Team ([facility] st Contact Info) Description 10/24/2022 Orders [place] [phone] Miguel Hinds PA [address] [place] [address] [place] [address] Cryptogenic cirrhosis Social History Tobacco Use Types [...] documented as of this encounter Results * AFP tumor marker (11/08/2022 10:42 AM EST) Alpha Fetoprotein 3.4 <=8.3 ng/mL [facility] Comment: This result was generated using a Kiah Mikaela immunoassay. ??Results obtained from other methods or manufacturers cannot be used interchangeably with this method. Blood 11/08/2022 10:4 2 AM EST 11/08/2022 10:52 AM EST Narrative Resulting Agency Comment Spec In Lab Dia Rico MD CHEMISTRY ORDERABLES Performing Organization Address [facility] Co de Phone Number [facility] [place] [address] * (ABNORMAL) Prothrombin Time (11/08/2022 10:42 AM EST) Prothrombin Time 15.1(H) 9.4 - 12.5 sec [facility] International Normalization Ratio 1.3 [facility] Comment: An INR <2.0 indicates [...] Resulting Agency Comment Spec In Lab Dia Rico MD HEMATOLOGY ORDERABLE S Performing Organization Address [facility] Co de Phone Number [facility] [place] [address] * (ABNORMAL) Comprehensive metabolic panel (non-fasting) (11/08/2022 10:42 AM EST) Glucose 112 65 - 199 mg/dL [facility] Comment:Diabetes: >=200 mg/d L plus symptoms Blood Urea Nitrogen 16 10 - 20 mg/dL [facility] Creatinine 1.31 0.80 - 1.50 mg/dL [facility] Sodium 137 135 - 145 mmol/L [facility] Potassium 4.4 3.5 - 5.0 mmol/L [facility] Comment: Please note: ??Patients with WBC >100,000 may have falsely elevated Potassium levels. ??For accurate Potassium quantification in these patients send serum separator tube (gold top) for subsequent determinations. ??Contact the Clinical Chemistry Laboratory if there are any questions. Chloride 106 98 - 107 mmol/L [facility] Carbon Dioxide 22 22 - 31 mmol/L [facility] Anion Gap 9 5 - 15 mmol/L [facility] Calcium 8.8 8.5 - 10.5 mg/dL [facility] Protein, Total 7.5 6.1 - 8.0 g/dL [facility] Albumin 3.0(L) 3.2 - 5.2 g/dL [facility] Aspartate Aminotransferase 26 0 - 39 unit/L [facility] Alanine Aminotransferase 17 0 - 55 unit/L [facility] Alkaline Phosphatase 144(H) 40 - 130 unit/L [facility] Bilirubin, Total 1.1 0.2 - 1.3 mg/dL [facility] Est Glomerular Filtration Rate 55(L) >=60 mL/min/1. 73 m?? [facility] Comment: This patient's estimated GFR [...] Resulting Agency Comment Spec In Lab Dia Rico MD CHEMISTRY ORDERABLES [facility] [place] [address] * US Abdomen Limited Hepatology Protocol (11/08/2022 10:07 AM EST) Anatomical Region Laterality Modality Abdomen Ultrasound 11/08/2022 10:0 5 AM EST Impressions 11/08/2022 11:54 AM EST 1. Coarsened, heterogeneous parenchyma in the small liver consistent with the known cirrhosis. No focal hepatic lesion. 2. Normal flow characteristics maintained at the portal vein. No evident varices at the jane hepatis. No recanalization of the umbilical vein. 3. Cholelithiasis without ultrasound evidence of cholecystitis. No intra or extrahepatic biliary ductal dilation. 4. No ascites. Thank you for letting us participate in the care of this patient. If you are a health care provider and have any questions regarding this report, please contact the number above. For patients who have questions, please contact the health md do resident urgent care that requested your imaging first. ?Michele Azevedo, Staff Physician Electronically Signed Final Report ?? 11/08/2022 11:54 am Narrative 11/08/2022 11:54 AM EST Abdominal ? (Signed Final 11/08/2022 11:54 am) PATIENT INFO: ID #: ? [id number] ?: ??[birth year] (82 yrs)(M) Name: ? MARLENY DIXON ? Visit Date: 11/08/2022 10:05 am PERFORMED BY: Performed By: ? Dilcia Washington RDMS Attending: ?Michele Azevedo MD Referred By: ?DIA RICO Location: ? [place] SERVICE(S) PROVIDED: [facility] - Hepatology Protocol - Abdominal ?[id number] Limited Survey Single Organ or Quadrant - [id number] INDICATIONS: cirrhosis, screen for varices ------ LIVER: ------ Right Lobe Length: ?? 11.9 ?? cm Echogenicity/Echotexture: ?? Coarse, heterogeneous ? parenchyma Portal Veins: ?Normal GALLBLADDER: Cholelithiasis: ?Gallstones Focal Tenderness: ?Negative sonographic Ortega's sign BILIARY TRACT: Intrahepatic Ducts: ?? Normal Extrahepatic Ducts: ?? Normal FLUID COLLECTIONS: Ascites not present on 4 quadrant evaluation. Procedure Note Michele Azevedo MD - 11/08/2022 Abdominal (Signed Final 11/08/2022 11:54 am) PATIENT INFO: ID #: [id number] : [birth year] (82 yrs)(M) Name: MARLENY DIXON Visit Date: 11/08/2022 10:05 am PERFORMED BY: Performed By: Dilcia Washington RDMS Attending: Michele Azevedo MD Referred By: DIA RICO Location: [place] SERVICE(S) PROVIDED: [facility] - Hepatology Protocol - Abdominal 23696 Limited Survey Single Organ or Quadrant - [id number] INDICATIONS: cirrhosis, screen for varices ------ LIVER: ------ Right Lobe Length: 11.9 cm Echogenicity/Echotexture: Coarse, heterogeneous parenchyma Portal Veins: Normal GALLBLADDER: Cholelithiasis: Gallstones Focal Tenderness: Negative sonographic Ortega's sign BILIARY TRACT: Intrahepatic Ducts: Normal Extrahepatic Ducts: Normal FLUID COLLECTIONS: Ascites not present on 4 quadrant evaluation. IMPRESSION 1. Coarsened, heterogeneous parenchyma in the small liver consistent with the known cirrhosis. No focal hepatic lesion. 2. Normal flow characteristics maintained at the portal vein. No evident varices at the jane hepatis. No recanalization of the umbilical vein. 3. Cholelithiasis without ultrasound evidence of cholecystitis. No intra or extrahepatic biliary ductal dilation. 4. No ascites. Thank you for letting us participate in the care of this patient. If you are a health care provider and have any questions regarding this report, please contact the number above. For patients who have questions, please contact the health md do resident urgent care that requested your imaging first. Michele Azevedo, Staff Physician Electronically Signed Final Report 11/08/2022 11:54 am Dia Rico MD IMG US GEN ORDERABLE S documented in this encounter Visit Diagnoses Diagnosis Cryptogenic cirrhosis Cirrhosis of liver without mention of alcohol Cryptogenic cirrhosis Cirrhosis of liver without mention of alcohol documented in this encounter Care Teams Rn Pediatric Relationship Specialty Start Date End Date Edgar Marie MD PCP - General Family Medicine 08/30/16 documented as of this encounter
--- OUTSIDE RECORDS SUMMARY | 2024-09-03 17:51 | XMS_ITS | Encounter Summary ---
Author Organization [facility] [place] [address] Care Team Providers Care Belly Dump Driver Name Role Phone Edgar Marie MD Primary Care Provider [phone] Encounter Details Date Type Department Care Team (Late st Contact Info) Description 12/30/2022 9:30 AM EST Office Visit [place] [phone] Miguel Hinds PA [address] [place] [address] [place] [address] Cryptogenic cirrhosis (Primary Dx); Portal hypertension; Anemia due to chronic blood loss Social History Tobacco Use Types Packs/Day Years [...] Sign Reading Time Taken Comments Blood Pressure 159/68 12/30/2022 9:35 AM EST Pulse 67 12/30/2022 9:35 AM EST Temperature - - Respiratory Rate - - Oxygen Saturation - - Inhaled Oxygen Concentration - - Weight 77.9 kg (171 lb 11.2 oz) 12/30/2022 9:35 AM EST Height 165.1 cm (5' 5) 12/30/2022 9:35 AM EST Body Mass Index 28.57 12/30/2022 9:35 AM EST documented in this encounter Progress Notes * Miguel Hinds PA - 12/30/2022 9:30 AM EST Gastroenterology and Hepatology Follow Up Note Patient: Marleny Dixon Sex: male : 1940 Provider: Miguel Hinds PA-C PCP: Edgar Marie MD LIVER HISTORY Cirrhosis, cryptogenic, [...] in excess, none in 20+ years at consult -Fibroscan 05/29/20: 43.6 kPa, 8% IQR, 333 [...] -EGD 12/14/20: small EV, repeat 1 year -[place] 12/15/20: no polyps, 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 Prostate cancer C61 ??? 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 CKD (chronic kidney disease) N18.9 ??? 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 Chronic allergic rhinitis J30.9 ??? Thrombocytopenia D69.6 ??? Carpal tunnel syndrome on right G56.01 ??? Restrictive lung disease J98.4 ??? Hypertension I10 ??? 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 Portal hypertension K76.6 Interval History: Mr. Marleny Dixon is 82 y.o. with a history of cirrhosis with portal hypertension. We last met on 01/08/21, and has since been lost to follow-up. He had all his testing (labs/US) on 11/08/22. He states that over the last 6 months his main issue has been dealing with intermittent blood in his urine. 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 Since then in October, he has not had any more bleeding. He was getting some intermittent lower abdominal pain with this but this has resolved. He denies any rectal bleeding recently as well. He states that he thinks that he was on an iron supplement at some point but then his doctor told him to stop it because his iron tests were good. He is not sure how long he has been on propranolol. MEDICATIONS: Current Outpatient Medications Medication Sig Dispense Refill ??? Hyoscyamine Sulfate (Anaspaz) 0.125 mg Tablet, Rapid Dissolve DISSOLVE ONE TABLET BY MOUTH TWO TO FOUR TIMES PER DAY NEEDED FOR BLADDER SPASMS- MAX DAILY DOSE OF 4 ??? aspirin 81 mg Tablet, Chewable Take by mouth. ??? acetaminophen (Tylenol) 325 mg Tablet Take 650 mg by mouth every 4 hours as needed for Pain. ??? loratadine (Claritin) 10 mg Tablet TAKE 1 TABLET BY MOUTH ONCE DAILY FOR ALLERGIES ??? losartan (COZAAR) 100 mg Tablet TAKE 1 TABLET BY MOUTH ONCE DAILY FOR BLOOD PRESSURE ??? magnesium 250 mg Tablet Take by mouth. ??? omeprazole (PRILOSEC) 20 mg Capsule, Delayed Release(E.C.) TAKE 1 CAPSULE BY MOUTH ONCE DAILY 3 ??? SPIRIVA RESPIMAT 2.5 mcg/actuation Mist INHALE 2 SPRAY(S) BY MOUTH ONCE DAILY 5 ??? albuterol (PROAIR HFA) 90 mcg/Actuation inhaler ??? CALCIUM CARBONATE/VITAMIN D3 (CALCIUM 600 WITH VITAMIN D3 ORAL) ??? propranolol LA (Inderal LA) 80 mg Capsule,Sustained Action 24 hr No current facility-administered medications for this visit. ALLERGIES/ADR Allergies Allergen Reactions ??? Dwayne Inhibitors PHYSICAL EXAMINATION: Vitals: 12/30/22 0935 BP: 159/68 BP Location ([facility]): Right arm Patient Position: Sitting BP Cuff Sizes: Adult (25-34 cm) Pulse: 67 Weight: 77.9 kg (171 lb 11.2 oz) Height: 165.1 cm (5' 5) Body mass index is 28.57 kg/m??. Constitutional: Well appearing elderly man, appropriate, no acute distress Skin: Pale, no cyanosis, no palmar erythema, no jaundice, no spider angiomata Head: Normocephalic, sclerae anicteric Abdomen: Increased central adiposity, nondistended, nontender Neurologic: Alert and oriented x 3, no asterixis or tremor Extremities: No edema, no clubbing, no muscle wasting, no joint swelling ?? PERTINENT LABS AND IMAGING: No results found for this or any previous visit (from the past 24 hour(s)). Lab Results Component Value Date WBC 3.5 (L) 11/08/2022 HGB 10.0 (L) 11/08/2022 HCT 29.4 (L) 11/08/2022 MCV 88.8 11/08/2022 PLATELET 56 (L) 11/08/2022 Lab Results Component Value Date NA 137 11/08/2022 K 4.4 11/08/2022 CL 106 11/08/2022 CO2 22 11/08/2022 BUN 16 11/08/2022 CREATININE 1.31 11/08/2022 GLUCOSE 112 11/08/2022 CALCIUM 8.8 11/08/2022 ESTGFR 55 (L) 11/08/2022 Lab Results Component Value Date ALT 17 11/08/2022 AST 26 11/08/2022 GGT 168 (H) 05/29/2020 ALKPHOS 144 (H) 11/08/2022 BILITOT 1.1 11/08/2022 ALBUMIN 3.0 (L) 11/08/2022 PROT 7.5 11/08/2022 Lab Results Component Value Date INR 1.3 11/08/2022 MELD-Na score: 12 at 11/08/2022 10:42 AM MELD score: 12 at 11/08/2022 10:42 AM Calculated from: Serum Creatinine: 1.31 mg/dL at 11/08/2022 10:42 AM Serum Sodium: 137 mmol/L at 11/08/2022 10:42 AM Total Bilirubin: 1.1 mg/dL at 11/08/2022 10:42 AM INR(ratio): 1.3 at 11/08/2022 10:42 AM Age: 82 years Lab Results Component Value Date AFP 3.4 11/08/2022 Endoscopy: EGD 12/27/21 (Dr. Santiago): Impression: ?- Small (< 5 mm) esophageal varices. ?- Z-line regular, 36 cm from the ?incisors. ?- Portal hypertensive gastropathy. ?- Normal examined duodenum. ?- No specimens collected. Recommendation: ?- Return to GI/Hepatology clinic. Colonoscopy 12/27/21: Impression: ?- Anal stricture found on digital ?rectal exam. ?- Multiple small non-bleeding colonic ?angioectasias in the distal rectum. ?- Mucosal changes consistent with ?radiation proctitis and mild ?stenosis/stricture in the rectum. ?- The examined portion of the ileum ?was normal. ?- No specimens collected. Recommendation: ?- Likely there will be some ?intermittent minor bleeding. ?- Suggest keeping stool soft. Use a ?fiber supplement such as Benefiber or ?Metamucil daily and Miralax as needed ?or daily as well. ?- No repeat colonoscopy due to age. Imaging: Ultrasound 11/08/22: LIVER: ------ Right Lobe Length: 11.9 cm Echogenicity/Echotexture: Coarse, heterogeneous parenchyma Portal Veins: Normal ?? GALLBLADDER: Cholelithiasis: Gallstones Focal Tenderness: Negative sonographic Ortega's sign ?? BILIARY TRACT: Intrahepatic Ducts: Normal Extrahepatic Ducts: Normal ?? FLUID COLLECTIONS: Ascites not present on 4 quadrant evaluation. ?? IMPRESSION ?? 1. Coarsened, heterogeneous parenchyma in the small liver consistent with the known cirrhosis. No focal hepatic lesion. 2. Normal flow characteristics maintained at the portal vein. No evident varices at the jane hepatis. No recanalization of the umbilical vein. 3. Cholelithiasis without ultrasound evidence of cholecystitis. No intra or extrahepatic biliary ductal dilation. 4. No ascites. ASSESSMENT & PLAN: Marleny Dixon is a 82 y.o. 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 He does have a history of regular alcohol use and some metabolic risks for fatty liver, and with elevated CAP score on FibroScan likely has some degree of steatohepatitis. He has very well compensated, Cfiqe-Cvgdtwsi-Nexi class A cirrhosis. He unfortunately was lost to follow-up however seems that things are quite stable as of his testingin October. Liver synthetic function is unremarkable and his ultrasound showed no concerning lesions or ascites or other sign of decompensation. Also reassured that he has not had any recent episodes of hematochezia, which was found to have small AVMs on his last colonoscopy December 2021. He continues to have anemia however which is likely due to iron deficiency. This can often happen with history of radiation proctitis in addition to chronic GI bleeding. I recommend that he is on a regular iron supplement though it sounds as if he has discussed this already with his primary care provider. I also noticed that he is now on propranolol. He was not on this as of our last meeting. If he stays on this medication, and heart rate stays between 50 to 60 bpm on average, that he does not need any further EGD screening/follow-up for esophageal varices. Plan: -Recommend regular iron supplement, such as ferrous sulfate 325 mg. -Continue propranolol 80 mg. Goal HR 50-60 bpm. No further EGD needed for varices surveillance. -Diet: Reviewed Mediterranean diet guidelines and also provided information on increasing fiber. -He should continue to remain abstinent from all alcohol. -Hepatology follow-up in [place] with ultrasound and labs prior. Time spent reviewing records prior to this encounter: 5 minutes Time spent during encounter with patient including counselin minutes Time spent documenting encounter on date of service: 6 minutes Approximate total time devoted to this single encounter on date of service: 31 minutes Miguel Hinds PA-C Section of Gastroenterology [place] [address] Cc: Edgar Marie MD @PCPADD@ documented in this encounter Plan of Treatment Not on file documented as of this encounter Results * (ABNORMAL) Prothrombin Time (04/28/2023 9:39 AM EDT) Prothrombin Time 16.1(H) 9.4 - 12.5 sec [facility] International Normalization Ratio 1.4 [facility] Comment: An INR <2.0 indicates adequate procoagulant activity for hemostasis in most patients without underlying bleeding disorders, though the INR may not adequately reflect hemostatic capacity in patients with liver disease and synthetic impairment. The recommended target INR range for therapeutic anticoagulation is 2.0 ? 3.0 for most applications, though lower and higher ranges may be appropriate depending on clinical circumstances. Blood 04/28/2023 9:39 AM EDT 04/28/2023 9:49 AM EDT Narrative Resulting Agency Comment Spec In Lab Dia Rico MD HEMATOLOGY ORDERABLE S [facility] [place] [address] * (ABNORMAL) Comprehensive metabolic panel (non-fasting) (04/28/2023 9:39 AM EDT) Glucose 112 65 - 199 mg/dL [facility] Comment:Diabetes: >=200 mg/d L plus symptoms Blood Urea Nitrogen 16 10 - 20 mg/dL [facility] Creatinine 1.48 0.80 - 1.50 mg/dL [facility] Sodium 140 135 - 145 mmol/L [facility] Potassium 4.3 3.5 - 5.0 mmol/L [facility] Comment: Please note: ??Patients with WBC >100,000 may have falsely elevated Potassium levels. ??For accurate Potassium quantification in these patients send serum separator tube (gold top) for subsequent determinations. ??Contact the Clinical Chemistry Laboratory if there are any questions. Chloride 107 98 - 107 mmol/L [facility] Carbon Dioxide 24 22 - 31 mmol/L [facility] Anion Gap 9 5 - 15 mmol/L [facility] Calcium 8.7 8.5 - 10.5 mg/dL [facility] Protein, Total 8.1(H) 6.1 - 8.0 g/dL [facility] Albumin 3.1(L) 3.2 - 5.2 g/dL [facility] Aspartate Aminotransferase 23 0 - 39 unit/L [facility] Alanine Aminotransferase 12 0 - 55 unit/L [facility] Alkaline Phosphatase 143(H) 40 - 130 unit/L [facility] Bilirubin, Total 1.3 0.2 - 1.3 mg/dL [facility] Est Glomerular Filtration Rate 48(L) >=60 mL/min/1. 73 m?? [facility] Comment: This patient's estimated GFR was [...] and symptoms in addition to eGFR. Blood 04/28/2023 9:39 AM EDT 04/28/2023 9:49 AM EDT Narrative Resulting Agency Comment Spec In Lab Dia Rico MD CHEMISTRY ORDERABLES [facility] [place] [address] * US Abdomen Limited Hepatology Protocol (04/28/2023 9:18 AM EDT) Anatomical Region Laterality Modality Abdomen Ultrasound 04/28/2023 9:04 AM EDT Impressions 04/28/2023 9:32 AM EDT 1. ??Cirrhotic liver with no evidence of focal lesion. 2. ??Gallstones with no evidence of cholecystitis. 3. ??Splenomegaly. 4. ??No evidence of ascites Thank you for letting us participate in the care of this patient. If you are a health care provider and have any questions regarding this report, please contact the number above. For patients who have questions, please contact the health child care associate that requested your imaging first. ? Alonzo Ernandez, Staff Physician Electronically Signed Final Report ?? 04/28/2023 09:31 am Narrative 04/28/2023 9:32 AM EDT Abdominal ? (Signed Final 04/28/2023 09:31 am) PATIENT INFO: ID #: ? [id number] ?: ??[birth year] (82 yrs)(M) Name: ? MARLENY DIXON ? Visit Date: 04/28/2023 09:04 am PERFORMED BY: Attending: ?Awais CINTRON MD, Alonzo Payne Performed By: ? Yin Gomez RDMS Referred By: ?DIA RICO Location: ? [place] SERVICE(S) PROVIDED: [facility] - Hepatology Protocol - Abdominal ?[id number] Limited Survey Single Organ or Quadrant - [id number] INDICATIONS: cirrhosis, screen for HCC COMPARISON: US 11/08/2022 ------ LIVER: ------ Right Lobe Length: ?? 11.8 ?? cm Echogenicity/Echotexture: ?? Coarse parenchyma with capsular ? nodularity GALLBLADDER: Cholelithiasis: ?Multiple stones non-mobile Wall Thickness: ?1.4 mm Focal Tenderness: ?Negative sonographic Ortega's sign Comment: ?2 non-mobile stones in gallbladder neck BILIARY TRACT: Intrahepatic Ducts: ?? Normal Extrahepatic Ducts: ?? Normal Common Duct Size: ? 2.9 ? mm ------- SPLEEN: ------- Size (cm) ?L: ??16.4 FLUID COLLECTIONS: Ascites not present on 4 quadrant evaluation. Procedure Note Alonzo Ernandez III, MD - 04/28/2023 Abdominal (Signed Final 04/28/2023 09:31 am) PATIENT INFO: ID #: [id number] : [birth year] (82 yrs)(M) Name: MARLENY DIXON Visit Date: 04/28/2023 09:04 am PERFORMED BY: Attending: Awais CINTRON MD, Arthur L. Performed By: Yin Gomez RDMS Referred By: DIA RICO Location: [place] SERVICE(S) PROVIDED: [facility] - Hepatology Protocol - Abdominal [id number] Limited Survey Single Organ or Quadrant - [id number] INDICATIONS: cirrhosis, screen for HCC COMPARISON: US 11/08/2022 ------ LIVER: ------ Right Lobe Length: 11.8 cm Echogenicity/Echotexture: Coarse parenchyma with capsular nodularity GALLBLADDER: Cholelithiasis: Multiple stones non-mobile Wall Thickness: 1.4 mm Focal Tenderness: Negative sonographic Ortega's sign Comment: 2 non-mobile stones in gallbladder neck BILIARY TRACT: Intrahepatic Ducts: Normal Extrahepatic Ducts: Normal Common Duct Size: 2.9 mm ------- SPLEEN: ------- Size (cm) L: 16.4 FLUID COLLECTIONS: Ascites not present on 4 quadrant evaluation. IMPRESSION 1. Cirrhotic liver with no evidence of focal lesion. 2. Gallstones with no evidence of cholecystitis. 3. Splenomegaly. 4. No evidence of ascites Thank you for letting us participate in the care of this patient. If you are a health care provider and have any questions regarding this report, please contact the number above. For patients who have questions, please contact the health child care associate that requested your imaging first. 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
--- OUTSIDE RECORDS SUMMARY | 2024-09-03 17:51 | XMS_ITS | Encounter Summary ---
Author Organization [facility] Address [facility] [place] [address] Care Team Providers Care Photographic Printer Name Role Phone Edgar Marie MD Primary Care Provider [phone] Encounter Details Date Type Department Care Team (Latest Contact Info) Description 10/28/2023 8:22 AM EST - 10/28/2023 11:59 PM [facility] Hospital [place] [address] Dai Rico MD [facility] [address] Cryptogenic cirrhosis Discharge Disposition: Home Social History Tobacco Use [...] Comments US ABDOMEN LIMITED HEPATOLOGY PROTOCOL Routine 10/28/2023 9:07 AM EST Cryptogenic cirrhosis documented in this encounter Results * US Abdomen Limited Hepatology Protocol (10/28/2023 9:07 AM EST) Anatomical Region Laterality Modality Abdomen Ultrasound 10/28/2023 8:48 AM EST Impressions 10/28/2023 9:17 AM EST 1. ??Coarse liver parenchyma with capsular nodularity, consistent with known cirrhosis. No sonographically evident hepatic mass. 2. ??No intra-abdominal ascites. 3. ??Cholelithiasis redemonstrated without evidence of acute cholecystitis or biliary ductal dilatation. Electronically signed by: Shayla Alcala MD, [facility] ([phone]), at 10/28/2023 9:11 AM Thank you for letting us participate in the care of this patient. If you are a health care provider and have any questions regarding this report, please contact the number above. For patients who have questions, please contact the health group care worker that requested your imaging first. ? Shayla Alcala, [facility] Sand Mill Operator Facing Sand Electronically Signed Final Report ?? 10/28/2023 09:17 am Narrative 10/28/2023 9:17 AM EST Abdominal ? (Signed Final 10/28/2023 09:17 am) PATIENT INFO: ID #: ? [id number] ?: ??[birth year] (83 yrs)(M) Name: ? MARLENY DIXON ? Visit Date: 10/28/2023 08:48 am PERFORMED BY: Attending: ?Shayla Alcala MD Performed By: ? Court Huerta RDMS Referred By: ?DIA RICO Location: ? [place] SERVICE(S) PROVIDED: [facility] - Hepatology Protocol - Abdominal ?[id number] Limited Survey Single Organ or Quadrant - [id number] INDICATIONS: Cirrhosis, screen for HCC COMPARISON: US abdomen limited hepatology protocol 04/28/23 ------ LIVER: ------ Right Lobe Length: ?? 11.6 ?? cm Echogenicity/Echotexture: ?? Coarse parenchyma with capsular ? nodularity Comment: ?No focal lesion seen. GALLBLADDER: Cholelithiasis: ?Gallstones Wall Thickness: ?Normal wall thickness Focal Tenderness: ?Negative sonographic Ortega's sign Comment: ?No pericholecystic fluid seen. BILIARY TRACT: Intrahepatic Ducts: ?? Normal Extrahepatic Ducts: ?? Normal where seen Common Duct Size: ? 3.0 ? mm FLUID COLLECTIONS: Ascites not present on 4 quadrant evaluation. Procedure Note Shayla Alcala MD - 10/28/2023 Abdominal (Signed Final 10/28/2023 09:17 am) PATIENT INFO: ID #: [id number] : [birth year] (83 yrs)(M) Name: MARLENY DIXON Visit Date: 10/28/2023 08:48 am PERFORMED BY: Attending: Shayla Alcala MD Performed By: Court Huerta RDMS Referred By: DIA RICO Location: [place] SERVICE(S) PROVIDED: [facility] - Hepatology Protocol - Abdominal [id number] Limited Survey Single Organ or Quadrant - [id number] INDICATIONS: Cirrhosis, screen for HCC COMPARISON: US abdomen limited hepatology protocol 04/28/23 ------ LIVER: ------ Right Lobe Length: 11.6 cm Echogenicity/Echotexture: Coarse parenchyma with capsular nodularity Comment: No focal lesion seen. GALLBLADDER: Cholelithiasis: Gallstones Wall Thickness: Normal wall thickness Focal Tenderness: Negative sonographic Ortega's sign Comment: No pericholecystic fluid seen. BILIARY TRACT: Intrahepatic Ducts: Normal Extrahepatic Ducts: Normal where seen Common Duct Size: 3.0 mm FLUID COLLECTIONS: Ascites not present on 4 quadrant evaluation. IMPRESSION 1. Coarse liver parenchyma with capsular nodularity, consistent with known cirrhosis. No sonographically evident hepatic mass. 2. No intra-abdominal ascites. 3. Cholelithiasis redemonstrated without evidence of acute cholecystitis or biliary ductal dilatation. Electronically signed by: Shayla Alcala MD, [facility] ([phone]), at 10/28/2023 9:11 AM Thank you for letting us participate in the care of this patient. If you are a health care provider and have any questions regarding this report, please contact the number above. For patients who have questions, please contact the health group care worker that requested your imaging first. Shayla Alcala, [facility] Sand Mill Operator Facing Sand Electronically Signed Final Report 10/28/2023 09:17 am Dia Rico MD IMG US GEN ORDERABLE S documented in this encounter Visit Diagnoses Diagnosis Cryptogenic cirrhosis Cirrhosis of liver without mention of alcohol documented in this encounter Care Teams Photographic Printer Relationship Specialty Start Date End Date Edgar Marie MD PCP - General Family Medicine 08/30/16 documented as of this encounter
--- OUTSIDE RECORDS SUMMARY | 2024-09-03 17:51 | XMS_ITS | Encounter Summary ---
Author Organization [facility] [place] [address] Care Team Providers Care Interlocking And Signal Mechanic Name Role Phone Edgar Marie MD Primary Care Provider [phone] Encounter Details Date Type Department Care Team (Late st Contact Info) Description 06/16/2024 1:00 PM EDT Office [place] [phone] Sloane Montoya APRN [facility] [place] [address] Hepatic cirrhosis, unspecified hepatic cirrhosis type, unspecified [...] Pulse 65 06/16/2024 12:59 PM EDT Temperature - - Respiratory Rate - - Oxygen Saturation - - Inhaled Oxygen Concentration - - Weight 73.5 kg (162 lb 1.6 oz) 06/16/2024 12:59 PM EDT Height 162.6 cm (5' 4) 06/16/2024 12:59 PM EDT Body Mass Index 27.82 06/16/2024 12:59 PM EDT documented in this encounter Progress Notes * Sloane Montoya, ASHLY - 06/16/2024 1:00 PM EDT Hepatology Follow Up Note Patient: Marleny Martin Gender: male : 1940 Provider: Sloane Montoya NP Referring Physician: Edgar Marie MD LIVER [...] -EGD 12/14/20: small EV, repeat 1 year -[place] 12/15/20: no polyps, 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 Marleny Martin is 83 y.o. with a history of cirrhosis with portal hypertension. He returns for follow up today. He is no longer having any rectal bleeding. He had a cystoscopy at [facility] and had a finding in his bladder, biopsy did not show cancer, but had atreatment and plans to repeat a scope again. He will have another cystoscopy on 07/01, and that willhelp determine whether the medication worked. If not, will do chemotherapy. When he is walking, he doesn't have much energy. No fluid retention. Believes he is taking iron supplements, but not sure. Stools are normal colored. Started taking a pill for stools, but not sure what that is for. Still taking Propanolol. 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 PHYSICAL EXAMINATION: Vitals: 06/16/24 1259 BP: (!) 113/99 BP Location (NB): Right arm Patient Position: Sitting BP Cuff Sizes: Adult (25-34 cm) Pulse: 65 Weight: 73.5 kg (162 lb 1.6 oz) Height: 162.6 cm (5' 4) Body mass index is 27.82 kg/m??. Constitutional: Well appearing elderly man, appropriate, no acute distress Skin: Pale, no cyanosis, no palmar erythema, no jaundice, no spider angiomata Head: Normocephalic, sclerae anicteric Abdomen: Nondistended, nontender Neurologic: Alert and oriented x 3, no asterixis or tremor Extremities: No edema, no clubbing, no muscle wasting, no joint swelling PERTINENT LABS AND IMAGING: Recent Results (from the past 24 hour(s)) Prothrombin Time Result Value Ref Range PT 17.3 (H) 9.4 - 12.5 sec INR 1.5 Comprehensive metabolic panel (non-fasting) Result Value Ref Range Glucose Lvl 112 65 - 199 mg/dL BUN 18 10 - 20 mg/dL Creatinine 1.53 (H) 0.80 - 1.50 mg/dL Sodium 142 135 - 145 mmol/L Potassium 4.3 3.5 - 5.0 mmol/L Chloride 109 (H) 98 - 107 mmol/L CO2 20 (L) 22 - 31 mmol/L Anion Gap 13 5 - 15 mmol/L Calcium 8.9 8.5 - 10.5 mg/dL Total Protein 7.4 6.1 - 8.0 g/dL Albumin 2.9 (L) 3.2 - 5.2 g/dL AST 32 0 - 39 unit/L ALT 17 0 - 55 unit/L Alk Phos 163 (H) 40 - 130 unit/L Total Bilirubin 2.1 (H) 0.2 - 1.3 mg/dL Estimated GFR 45 (L) >=60 mL/min/1.73 m?? AFP tumor marker Result Value Ref Range AFP 3.1 <=8.3 ng/mL Hemogram Result Value Ref Range WBC 3.8 (L) 4.0 - 9.5 x10(3)/mcL RBC 3.31 (L) 4.58 - 5.54 x10(6)/mcL Hemoglobin 10.6 (L) 13.7 - 16.5 g/dL Hematocrit 31.0 (L) 40.5 - 48.5 % MCV 93.7 (H) 82.9 - 93.1 fL MCH 32.0 27.5 - 32.1 pg MCHC 34.2 32.0 - 35.7 g/dL Platelets 54 (L) 145 - 357 x10(3)/mcL RDWSD 47.8 (H) 36.0 - 45.0 fL RDWCV 14.1 (H) 11.4 - 13.8 % MPV 12.1 7.6 - 12.9 fL nRBC % Auto 0.0 % nRBC Abs Auto 0.000 0.000 - 0.000 x10(3)/mcL Differential, Automated Result Value Ref Range Neutrophils % 64.0 % Neutr Abs (ANC) 2.41 1.70 - 6.10 x10(3)/mcL Lymphocytes % 19.7 % Lymphocytes Abs 0.7 (L) 0.9 - 3.2 x10(3)/mcL Monocytes % 6.1 % Monocyte Abs 0.2 (L) 0.3 - 0.9 x10(3)/mcL Eosinophils % 8.8 % Eosinophils Abs 0.3 0.0 - 0.4 x10(3)/mcL Basophils % 1.1 % Basophils Abs 0.0 0.0 - 0.1 x10(3)/mcL Immature Gran % 0.30 % Sadie Gran Abs 0.01 0.00 - 0.04 x10(3)/mcL MELD 3.0: 18 at 06/16/2024 10:38 AM MELD-Na: 18 at 06/16/2024 10:38 AM Calculated from: Serum Creatinine: 1.53 mg/dL at 06/16/2024 10:38 AM Serum Sodium: 142 mmol/L (Using max of 137 mmol/L) at 06/16/2024 10:38 AM Total Bilirubin: 2.1 mg/dL at 06/16/2024 10:38 AM Serum Albumin: 2.9 g/dL at 06/16/2024 10:38 AM INR(ratio): 1.5 at 06/16/2024 10:38 AM Age at listing (hypothetical): 83 years Sex: Male at 06/16/2024 10:38 AM Imaging: Ultrasound 06/16/2024: IMPRESSION 1. Normal liver size. Coarsened heterogeneous parenchyma, consistent with cirrhosis. No focal hepatic lesion. 2. Patent main portal vein with normal directional flow. Moderate splenomegaly. No ascites. 3. Cholelithiasis without evidence of acute cholecystitis. 4. Normal common bile duct. ASSESSMENT & PLAN: Marleny Martin is a 83 y.o. 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 He does have a history of regular alcohol use and some metabolic risks for fatty liver, and with elevated CAP score on FibroScan likely has some degree of steatohepatitis. He has very well compensated, Cfurd-Adopdcmw-Kadd class A cirrhosis. From a liver perspective he has been relatively stable, tolerateing Propanolol well, and although heart rate today is slightly high I will leave at current dose because previously his heart rate was at goal. At our last visit he had been having some rectal bleeding and his hemoglobin had dropped but that appears to have resolved. We had considered doing a flexible sigmoidoscopy to treat AVMs but since his symptoms have resolved and hemoglobin is improved I do not think this is necessary at this time. Plan: - Continue Propanolol 80mg daily for varices prophylaxis - Continue iron supplementation through PCP - Follow up in 6 months with labs, US and visit. - continue follow up with Dr. Saxena for bladder findings. Time spent reviewing records prior to this encounter:5 minutes Time spent during encounter with patient including counselin minutes Time spent documenting encounter on date of service: 10 minutes Approximate total time devoted to this single encounter on date of service: 30 minutes Sloane Montoya APRN Section of Gastroenterology [place] [address] Cc: Edgar Marie MD @[email or web address]@ documented in this encounter Plan of Treatment Scheduled Orders Name Type Priority Associated Diagnoses Orde r Schedule US Abdomen Limited Hepatology Protocol Imaging Routine Hepatic cirrhosis, unspecified hepatic cirrhosis type, unspecified whether ascites present Expected: 12/17/2024 (Approximate), Expires: 06/16/2025 Comprehensive metabolic panel (non-fasting) Lab Routine Hepatic cirrhosis, unspecified hepatic cirrhosis type, unspecified whether ascites present Expected: 12/17/2024 (Approximate), Expires: 06/16/2025 CBC (with Diff) Lab Routine Hepatic cirrhosis, unspecified hepatic cirrhosis type, unspecified whether ascites present Expected: 12/17/2024 (Approximate), Expires: 06/16/2025 Prothrombin Time Lab Routine Hepatic cirrhosis, unspecified hepatic cirrhosis type, unspecified whether ascites present Expected: 12/17/2024 (Approximate), Expires: 06/16/2025 AFP tumor marker Lab Routine Hepatic cirrhosis, unspecified hepatic cirrhosis type, unspecified whether ascites present Expected: 12/17/2024 (Approximate), Expires: 06/18/2025 documented as of this encounter Results * AFP tumor marker (06/16/2024 10:38 AM EDT) Alpha Fetoprotein 3.1 <=8.3 ng/mL [facility] Comment: This result was generated using a Kiah Mikaela immunoassay. ??Results obtained from other methods or manufacturers cannot be used interchangeably with this method. Blood 06/16/2024 10:3 8 AM EDT 06/16/2024 10:48 AM EDT Narrative Resulting Agency Comment Spec In Lab Sloane Montoya SUPERVISOR [employer] FORMER CHEMISTRY ORDERABL ES [facility] [place] [address] documented in this encounter Visit Diagnoses Diagnosis Hepatic cirrhosis, unspecified hepatic cirrhosis type, unspecified whether ascites present documented in this encounter Care Teams Interlocking And Signal Mechanic Relationship Specialty Start Date End Date Edgar Marie MD PCP - General Family Medicine 08/30/16 documented as of this encounter
--- OUTSIDE RECORDS SUMMARY | 2024-09-03 17:51 | XMS_ITS | Encounter Summary ---
Author Organization [facility] [place] [address] Care Team Providers Care Postage Machine Operator Name Role Phone Edgar Marie MD Primary Care Provider [phone] Encounter Details Date Type Department Care Team ([facility] st Contact Info) Description 10/09/2021 Telephone [place] [phone] Heidi Dyson Social History Tobacco Use Types Packs/Day Years [...] encounter Miscellaneous Notes * Telephone Encounter - Heidi Dyson - 10/09/2021 3:13 PM EST Placed outgoing phone call to patient in order to schedule a procedure. Phone Call Outcome: No Answer. This was the 1st attempt If the call is returned, it can be handled by: [facility] Vice President Of Compliance Called patient to let her know we had to switch providers from dr. shen to dr. Santiago on dec 27. Need to make sure shes ok with it. documented in this encounter Plan of Treatment Not on file documented as of this encounter Visit Diagnoses Not on filedocumented in this encounter Care Teams Postage Machine Operator Relationship Specialty Start Date End Date Edgar Marie MD PCP - General Family Medicine 08/30/16 documented as of this encounter
--- OUTSIDE RECORDS SUMMARY | 2024-09-03 17:51 | XMS_ITS | Encounter Summary ---
Author Organization [facility] Address [facility] [place] [address] Care Team Providers Care Heel Wheeler Name Role Phone Edgar Marie MD Primary Care Provider [phone] Encounter Details Date Type Department Care Team (Latest Contact Info) Description 01/08/2021 7:29 AM EST - 01/08/2021 11:59 PM [facility] Hospital [place] [address] Dia Rico MD [facility] [place] [address] Cirrhosis of liver without ascites, unspecified hepatic cirrhosis type Discharge Disposition: Home Social History Tobacco Use [...] Sig Dispensed Refills Start Date End Date acetaminophen (Tylenol) 325 mg Tablet Take 650 [...] (CALCIUM 600 WITH VITAMIN D3 ORAL) 08/24/2010 aspirin 81 mg Tablet, Chewable Take by mouth. 02/25/2017 10/28/2023 aspirin EC 81 mg Tablet, Delayed Release (E.C.) Take 81 mg by mouth daily. 12/27/2021 documented as of this encounter Plan of Treatment Not on file documented as of this encounter Procedures Procedure Name Priority Date/Time Associated Diagnosis Comments US ABDOMEN LIMITED HEPATOLOGY PROTOCOL Routine 01/08/2021 8:43 AM EST Cirrhosis of liver without ascites, unspecified hepatic cirrhosis type documented in this encounter Results * US Abdomen Limited Hepatology Protocol (01/08/2021 8:43 AM EST) Anatomical Region Laterality Modality Abdomen Ultrasound 01/08/2021 8:27 AM EST Impressions 01/08/2021 9:10 AM EST 1. Overall the hepatic contour is coarsened, in the setting of known liver disease. No focal lesion is identified currently. 2. Approaching the neck of the gallbladder, shadowing mobile 8mm finding strongly favoring gallstone. The patient is asymptomatic, negative sonographic Ortega sign, normal gallbladder wall, no pericholecystic fluid. No current sonographic evidence of acute cholecystitis. The common bile duct is normal. Thank you for letting us participate in the care of this patient. For questions regarding this report, please contact the number below. Electronically signed by: Martin Pineda MD, [facility] ([phone]), at 01/08/2021 9:03 AM ?Martin Pineda, Staff Physician Electronically Signed Final Report ?? 01/08/2021 09:10 am Narrative 01/08/2021 9:10 AM EST Abdominal ? (Signed Final 01/08/2021 09:10 am) PATIENT INFO: ID #: ? [id number] ?: ??[birth year] (80 yrs)(M) Name: ? MARLENY DIXON ? Visit Date: 01/08/2021 08:27 am PERFORMED BY: Performed By: ? Court Yanez RDMS Attending: ?Edwin BERG, Martin Estrada Referred By: ?DIA JACKY Location: ? [place] SERVICE(S) PROVIDED: [facility] - Hepatology Protocol - Abdominal ? [id number] Limited Survey Single Organ or Quadrant - [id number] INDICATIONS: cirrhosis, screen for hepatoma COMPARISON: US of 07/13/20 ------ LIVER: ------ Right Lobe Length: ?? 12.4 ?? cm Echogenicity/Echotexture: ?? Coarse parenchyma with capsular ? nodularity GALLBLADDER: Cholelithiasis: ?Gallstone Wall Thickness: ?2. mm Focal Tenderness: ?Negative sonographic Ortega's sign BILIARY TRACT: Intrahepatic Ducts: ?? Normal Extrahepatic Ducts: ?? Normal Common Duct Size: ? 2.0 ? mm Procedure Note Martin Pineda MD - 01/08/2021 Abdominal (Signed Final 01/08/2021 09:10 am) PATIENT INFO: ID #: [id number] : [birth year] (80 yrs)(M) Name: MARLENY DIXON Visit Date: 01/08/2021 08:27 am PERFORMED BY: Performed By: Court Yanez RDMS Attending: Martin Pineda MD Referred By: DIA RICO Location: [place] SERVICE[facility]S) [facility] Hepatology Protocol - Abdominal [id number] Limited Survey Single Organ or Quadrant - [id number] INDICATIONS: cirrhosis, screen for hepatoma COMPARISON: US of 07/13/20 ------ LIVER: ------ Right Lobe Length: 12.4 cm Echogenicity/Echotexture: Coarse parenchyma with capsular nodularity GALLBLADDER: Cholelithiasis: Gallstone Wall Thickness: 2. mm Focal Tenderness: Negative sonographic Ortega's sign BILIARY TRACT: Intrahepatic Ducts: Normal Extrahepatic Ducts: Normal Common Duct Size: 2.0 mm IMPRESSION 1. Overall the hepatic contour is coarsened, in the setting of known liver disease. No focal lesion is identified currently. 2. Approaching the neck of the gallbladder, shadowing mobile 8mm finding strongly favoring gallstone. The patient is asymptomatic, negative sonographic Ortega sign, normal gallbladder wall, no pericholecystic fluid. No current sonographic evidence of acute cholecystitis. The common bile duct is normal. Thank you for letting us participate in the care of this patient. For questions regarding this report, please contact the number below. Electronically signed by: Martin Pineda MD, [facility] ([phone]), at 01/08/2021 9:03 AM Martin Pineda, Staff Physician Electronically Signed Final Report 01/08/2021 09:10 am Dia Rico MD IMG US GEN ORDERABLE S documented in this encounter Visit Diagnoses Diagnosis Cirrhosis of liver without ascites, unspecified hepatic cirrhosis type documented in this encounter Care Teams Heel Wheeler Relationship Specialty Start Date End Date Edgar Marie MD PCP - General Family Medicine 08/30/16 documented as of this encounter
--- OUTSIDE RECORDS SUMMARY | 2024-09-03 17:51 | XMS_ITS | Encounter Summary ---
[place] [address] Care Team Providers Care Water Pollution Scientist Name Role Phone Edgar Marie MD Primary Care Provider [phone] Encounter Details Date Type Department Care Team (Latest Contact Info) Description 10/28/2023 9:45 AM EST Laboratory Appointment Lab [address] [place] [phone] Anemia due to chronic blood loss; Cryptogenic cirrhosis Social History Tobacco Use Types [...] Priority Date/Time Associated Diagnosis Comments HEMOGRAM Routine 10/28/2023 9:34 AM EST Anemia due to chronic blood loss Cryptogenic cirrhosis DIFFERENTIAL, AUTOMATED Routine 10/28/2023 9:34 AM EST Anemia due to chronic blood loss Cryptogenic cirrhosis IRON AND TIBC Routine 10/28/2023 9:34 AM EST Anemia due to chronic blood loss AFP TUMOR MARKER Routine 10/28/2023 9:34 AM EST Cryptogenic cirrhosis PROTHROMBIN TIME Routine 10/28/2023 9:34 AM EST Cryptogenic cirrhosis CBC (WITH DIFF) Routine 10/28/2023 9:34 AM EST Anemia due to chronic blood loss Cryptogenic cirrhosis FERRITIN Routine 10/28/2023 9:34 AM EST Anemia due to chronic blood loss COMPREHENSIVE METABOLIC PANEL Routine 10/28/2023 9:34 AM EST Cryptogenic cirrhosis documented in this encounter Results * Differential, Automated (10/28/2023 9:34 AM EST) Neutrophil % 57.1 % [facility] Neutrophil Absolute 1.99 1.70 - 6.10 x10(3)/[facility] LAB[facility] Lymph % 27.5 % [facility] Lymphocytes Abs 1.0 0.9 - 3.2 x10(3)/[facility] Monocyte % 7.7 % [facility] Monocyte Abs 0.3 0.3 - 0.9 x10(3)/[facility] LAB[facility] Eos % 6.3 % [facility] Eosinophils Abs 0.2 0.0 - 0.4 x10(3)/[facility] Basophil % 1.1 % [facility] Baso Absolute 0.0 0.0 - 0.1 x10(3)/[facility] LABORATORY Immature Gran % 0.30 % [facility] Comment: Immature granulocytes(IG's)percentage and absolute count will include metamyelocytes, myelocytes, and promyelocytes. Blood smears from CBCs yielding IG's will be scanned manually for concordance. If this scan disagrees with the automated IG or if promyelocytes are noted, a manual differential will be performed. Immature Gran Absolute 0.01 0.00 - 0.04 x10(3)/[facility] LABORATORY Blood 10/28/2023 9:34 AM EST 10/28/2023 9:56 AM EST Narrative Resulting Agency Comment Spec In Lab Miguel HARTLEY HEMATOLOGY ORDERABLE S [facility] [place] [address] * (ABNORMAL) Hemogram (10/28/2023 9:34 AM EST) White Blood Cell 3.5(L) 4.0 - 9.5 x10(3)/mc L [facility] Red Blood Cell 3.09(L) 4.58 - 5.54 x10(6)/mc L [facility] Hemoglobin 9.1(L) 13.7 - 16.5 g/dL [facility] Hematocrit 28.6(L) 40.5 - 48.5 % [facility] Mean Cell Volume 92.6 82.9 - 93.1 fL [facility] Mean Cell Hemoglobin 29.4 27.5 - 32.1 pg [facility] Mean Cell Hemoglobin Concentration 31.8(L) 32.0 - 35.7 g/dL [facility] Platelet 72(L) 145 - 357 x10(3)/mc L [facility] RDW Standard Deviation 56.0(H) 36.0 - 45.0 fL [facility] RDW coefficient of variation 16.6(H) 11.4 - 13.8 % [facility] Mean Platelet Volume 13.0(H) 7.6 - 12.9 fL [facility] NRBC% auto 0.0 % [facility] NRBC Absolute 0.000 0.000 - 0.000 x10(3)/mc L [facility] Blood 10/28/2023 9:34 AM EST 10/28/2023 9:56 AM EST Narrative Resulting Agency Comment Spec In Lab Miguel HARTLEY HEMATOLOGY ORDERABLE S [facility] [place] [address] * (ABNORMAL) Comprehensive metabolic panel (non-fasting) (10/28/2023 9:34 AM EST) Glucose 119 65 - 199 mg/dL [facility] Comment:Diabetes: >=200 mg/d L plus symptoms Blood Urea Nitrogen 21(H) 10 - 20 mg/dL [facility] Creatinine 1.25 0.80 - 1.50 mg/dL [facility] Sodium 142 135 - 145 mmol/L [facility] Potassium 4.6 3.5 - 5.0 mmol/L [facility] Comment: Please note: ??Patients with WBC >100,000 may have falsely elevated Potassium levels. ??For accurate Potassium quantification in these patients send serum separator tube (gold top) for subsequent determinations. ??Contact the Clinical Chemistry Laboratory if there are any questions. Chloride 112(H) 98 - 107 mmol/L [facility] Carbon Dioxide 22 22 - 31 mmol/L [facility] Anion Gap 8 5 - 15 mmol/L [facility] Calcium 8.7 8.5 - 10.5 mg/dL [facility] Protein, Total 7.0 6.1 - 8.0 g/dL [facility] Albumin 2.9(L) 3.2 - 5.2 g/dL [facility] Aspartate Aminotransferase 30 0 - 39 unit/L [facility] Alanine Aminotransferase 21 0 - 55 unit/L [facility] Alkaline Phosphatase 209(H) 40 - 130 unit/L [facility] Bilirubin, Total 1.0 0.2 - 1.3 mg/dL [facility] Est Glomerular Filtration Rate 58(L) >=60 mL/min/1. 73 m?? [facility] Comment: This patient's estimated GFR was [...] and symptoms in addition to eGFR. Blood 10/28/2023 9:34 AM EST 10/28/2023 9:56 AM EST Narrative Resulting Agency Comment Spec In Lab Dia Soto MD CHEMISTRY ORDERABLES [facility] [place] [address] * (ABNORMAL) Prothrombin Time (10/28/2023 9:34 AM EST) Prothrombin Time 15.3(H) 9.4 - 12.5 sec [facility] International Normalization Ratio 1.4 [facility] Comment: An INR <2.0 indicates adequate procoagulant activity for hemostasis in most patients without underlying bleeding disorders, though the INR may not adequately reflect hemostatic capacity in patients with liver disease and synthetic impairment. The recommended target INR range for therapeutic anticoagulation is 2.0 ? 3.0 for most applications, though lower and higher ranges may be appropriate depending on clinical circumstances. Blood 10/28/2023 9:34 AM EST 10/28/2023 9:56 AM EST Narrative Resulting Agency Comment Spec In Lab Dia Soto MD HEMATOLOGY ORDERABLE S [facility] [place] [address] * AFP tumor marker (10/28/2023 9:34 AM EST) Pathologist [facility] [place] Alpha Fetoprotein 2.7 <=8.3 ng/mL [facility] Comment: This result was generated using a Kiah Mikaela immunoassay. ??Results obtained from other methods or manufacturers cannot be used interchangeably with this method. Blood 10/28/2023 9:34 AM EST 10/28/2023 9:56 AM EST Narrative Resulting Agency Comment Spec In Lab Dia Soto MD CHEMISTRY ORDERABLES [facility] [place] [address] * (ABNORMAL) Iron and TIBC (10/28/2023 9:34 AM EST) Pathologist [facility] [place] Iron 88 45 - 160 mcg/dL [facility] TIBC 233(L) 250 - 450 mcg/dL [facility] Iron Saturation 38 20 - 50 % [facility] Blood 10/28/2023 9:34 AM EST 10/28/2023 9:56 AM EST Narrative Resulting Agency Comment Spec In Lab Dia Soto MD CHEMISTRY ORDERABLES [facility] [place] [address] * Ferritin (10/28/2023 9:34 AM EST) Ferritin 80 31 - 409 ng/mL [facility] Comment: Please note that as of 10/22/2023, the reference intervals for Ferritin have been updated. 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
--- OUTSIDE RECORDS SUMMARY | 2024-09-03 17:51 | XMS_ITS | Encounter Summary ---
[place] [address] Care Team Providers Care Office Inspector Name Role Phone Edgar Marie MD Primary Care Provider [phone] Encounter Details Date Type Department Care Team (Latest Contact Info) Description 04/28/2023 9:45 AM EDT Laboratory Appointment Lab [address] [place] [phone] Cryptogenic cirrhosis Social History Tobacco Use Types [...] Priority Date/Time Associated Diagnosis Comments HEMOGRAM Routine 04/28/2023 9:39 AM EDT Cryptogenic cirrhosis DIFFERENTIAL, AUTOMATED Routine 04/28/2023 9:39 AM EDT Cryptogenic cirrhosis IRON AND TIBC Routine 04/28/2023 9:39 AM EDT PROTHROMBIN TIME Routine 04/28/2023 9:39 AM EDT Cryptogenic cirrhosis CBC (WITH DIFF) Routine 04/28/2023 9:39 AM EDT Cryptogenic cirrhosis COMPREHENSIVE METABOLIC PANEL Routine 04/28/2023 9:39 AM EDT Cryptogenic cirrhosis documented in this encounter Results * Iron and TIBC (04/28/2023 9:39 AM EDT) Iron 120 45 - 160 mcg/dL [facility] TIBC 319 250 - 450 mcg/dL [facility] Iron Saturation 38 20 - 50 % [facility] Blood Venous Draw / Unknown 04/28/2023 9:39 AM EDT 04/28/2023 9:51 AM EDT Narrative Resulting Agency Comment Spec In Lab Miguel HARTLEY CHEMISTRY ORDERABLES Performing Organization Address City/State/[facility] Co de Phone Number [facility] [place] [address] * (ABNORMAL) Differential, Automated (04/28/2023 9:39 AM EDT) Neutrophil % 68.0 % [facility] Neutrophil Absolute 2.16 1.70 - 6.10 x10(3)/mc L [facility] Lymph % 18.9 % [facility] Lymphocytes Abs 0.6(L) 0.9 - 3.2 x10(3)/mc L [facility] Monocyte % 7.2 % [facility] Monocyte Abs 0.2(L) 0.3 - 0.9 x10(3)/mc L [facility] Eos % 5.0 % [facility] Eosinophils Abs 0.2 0.0 - 0.4 x10(3)/mc L [facility] Basophil % 0.6 % [facility] Baso Absolute 0.0 0.0 - 0.1 x10(3)/mc L [facility] Immature Gran % 0.30 % [facility] Comment: Immature granulocytes(IG's)percentage and absolute count will include metamyelocytes, myelocytes, and promyelocytes. Blood smears from CBCs yielding IG's will be scanned manually for concordance. If this scan disagrees with the automated IG or if promyelocytes are noted, a manual differential will be performed. Immature Gran Absolute 0.01 0.00 - 0.04 x10(3)/mc L [facility] Blood 04/28/2023 9:39 AM EDT 04/28/2023 9:49 AM EDT Narrative Resulting Agency Comment Spec In Lab Miguel HARTLEY HEMATOLOGY ORDERABLE S [facility] [place] [address] * (ABNORMAL) Hemogram (04/28/2023 9:39 AM EDT) White Blood Cell 3.2(L) 4.0 - 9.5 x10(3)/ L [facility] Red Blood Cell 3.15(L) 4.58 - 5.54 x10(6)/ L [facility] Hemoglobin 8.5(L) 13.7 - 16.5 g/dL [facility] Hematocrit 26.5(L) 40.5 - 48.5 % [facility] Mean Cell Volume 84.1 82.9 - 93.1 fL [facility] Mean Cell Hemoglobin 27.0(L) 27.5 - 32.1 pg [facility] Mean Cell Hemoglobin Concentration 32.1 32.0 - 35.7 g/dL [facility] Platelet 61(L) 145 - 357 x10(3)/mc L [facility] RDW Standard Deviation 46.3(H) 36.0 - 45.0 fL [facility] RDW coefficient of variation 15.2(H) 11.4 - 13.8 % [facility] Mean Platelet Volume 12.9 7.6 - 12.9 fL [facility] NRBC% auto 0.0 % [facility] NRBC Absolute 0.000 0.000 - 0.000 x10(3)/ L [facility] Blood 04/28/2023 9:39 AM EDT 04/28/2023 9:49 AM EDT Narrative Resulting Agency Comment Spec In Lab Miguel HARTLEY HEMATOLOGY ORDERABLE S Performing Organization Address City/[facility]/ZIP Co de Phone Number [facility] [place] [address] * (ABNORMAL) Comprehensive metabolic panel (non-fasting) (04/28/2023 9:39 AM EDT) Glucose 112 65 - 199 mg/dL [facility] Comment:Diabetes: >=200 mg/d L plus symptoms Blood Urea Nitrogen 16 10 - 20 mg/dL [facility] Creatinine 1.48 0.80 - 1.50 mg/dL [facility] Sodium 140 135 - 145 mmol/L [facility] Potassium 4.3 3.5 - 5.0 mmol/L [facility] Comment: Please note: ??Patients with WBC >100,000 may have falsely elevated Potassium levels. ??For accurate Potassium quantification in these patients send serum separator tube (gold top) for subsequent determinations. ??Contact the Clinical Chemistry Laboratory if there are any questions. Chloride 107 98 - 107 mmol/L [facility] Carbon Dioxide 24 22 - 31 mmol/L [facility] Anion Gap 9 5 - 15 mmol/L [facility] Calcium 8.7 8.5 - 10.5 mg/dL [facility] Protein, Total 8.1(H) 6.1 - 8.0 g/dL [facility] Albumin 3.1(L) 3.2 - 5.2 g/dL [facility] Aspartate Aminotransferase 23 0 - 39 unit/L [facility] Alanine Aminotransferase 12 0 - 55 unit/L [facility] Alkaline Phosphatase 143(H) 40 - 130 unit/L [facility] Bilirubin, Total 1.3 0.2 - 1.3 mg/dL [facility] Est Glomerular Filtration Rate 48(L) >=60 mL/min/1. 73 m?? [facility] Comment: This patient's estimated GFR [...] In Lab Dia Soot MD CHEMISTRY ORDERABLES Performing Organization Address [facility] Co de Phone Number [facility] [place] [address] * (ABNORMAL) Prothrombin Time (04/28/2023 9:39 AM EDT) Prothrombin Time 16.1(H) 9.4 - 12.5 sec [facility] International Normalization Ratio 1.4 [facility] Comment: An INR <2.0 indicates [...] MD HEMATOLOGY ORDERABLE S Performing Organization Address [facility] Co de Phone Number [facility] [place] [address] documented in this encounter Visit Diagnoses Diagnosis 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
--- OUTSIDE RECORDS SUMMARY | 2024-09-03 17:51 | XMS_ITS | Encounter Summary ---
Author Organization [facility] Address [facility] [place] [address] Care Team Providers Care Weatherization Specialist Name Role Phone Edgar Marie MD Primary Care Provider [phone] Reason for Visit * Auth/Cert Specialty Diagnoses [...] Expiration Date Visits Re quested Visits Authorized [id number] 1 1 Encounter Details Date Type Department Care Team (Latest Contact Info) Description 12/14/2020 12:53 PM EST - 12/14/2020 4:06 PM [facility] Hospital Encounter [place] [address] Dia Soto MD [facility] [place] [address] Discharge Disposition: Home Social History Tobacco Use [...] Sign Reading Time Taken Comments Blood Pressure 137/57 12/14/2020 3:40 PM EST Pulse 80 12/14/2020 1:41 PM EST Temperature 36.7 ??C (98 ??F) 12/14/2020 1:41 PM EST Respiratory Rate 18 12/14/2020 3:40 PM EST Oxygen Saturation 96% 12/14/2020 3:40 PM EST Inhaled Oxygen Concentration - - Weight 79.4 kg (175 lb) 12/14/2020 1:41 PM EST Height 167.6 cm (5' 6) 12/14/2020 1:41 PM EST Body Mass Index 28.25 12/14/2020 1:41 PM EST documented in this encounter Discharge Instructions * Discharge Instructions* Corbin Somers, RN - 12/14/2020 3:19 PM EST Upper GI Endoscopy: What to Expect at Home Your Recovery You will be able to go home after your doctor or nurse checks to make sure you are not having any problems. You may have to stay overnight if you had treatment during the test. You may have a sore throat fora day or two after the test. This care sheet gives you a general idea about what to expect after the test. How can you care for yourself at home? Activity Rest when you feel tired. ?? You can do your normal activities when it feels okay to do so. Diet ?? Follow your doctor's directions for eating. ?? Unless your doctor has told you not to, drink plenty of fluids. This helps to replace the fluidsthat were lost during the prep. ?? Do not drink alcohol. Medicines ?? Your doctor will tell you if and when you can restart your medicines. He or she will also give you instructions about taking any new medicines. ?? If you take blood thinners, such as warfarin (Coumadin), clopidogrel (Plavix), or aspirin, be sure to talk to your doctor. He or she will tell you if and when to start taking those medicines again. Make sure that you understand exactly what your doctor wants you to do. ?? If polyps were removed or a biopsy was done during the test, your doctor may tell you not to take aspirin or other anti-inflammatory medicines for a few days. These include ibuprofen (Advil, Motrin) and naproxen (Aleve). ?? If you have a sore throat the day after the procedure, use an [id number]-[id number] spray to numb your throat. Sucking on throat lozenges and gargling with warm salt water may also help relieve your symptoms. Other instructions ?? For your safety, do not drive or operate machinery until the medicine wears off and you can think clearly. Your doctor may tell you not to drive or operate machinery until the day after your test. ?? Do not sign legal documents or make major decisions until the medicine wears off and you can think clearly. The anesthesia can make it hard for you to fully understand what you are agreeing to. Additional Information for Sedation Patients For patients who received sedation: ?? You may have received medications before and/or during your procedure which effects your judgement and reaction time. ?? Do not drive, operate machinery, drink alcoholic beverages or make important decisions for 24 hours. ?? Be careful on stairs as you may be unsteady on your feet. ?? You may eat a regular diet as tolerated. ?? Do not smoke if you are alone. ?? IV site: Slight redness or tenderness is normal, you can use a warm compress if you would like. If tenderness and/or redness increase or if foul drainage occurs, please contact your Doctor. Please call [phone] before 8pm Mon-Fri with problems, questions or concerns. If you call after 8pm or on weekends, call the Hospital at [phone] and ask to speak to the [employer] control systems designer and the button machine operator will contact that person for you. When should you call for help? Call [phone] anytime you think you may need emergency care. For example, call if: ?? You passed out (lost consciousness). ?? You pass maroon or bloody stools. ?? You have trouble breathing. Call your doctor now or seek immediate medical care if: ?? You have pain that does not get better after you take pain medicine. ?? You are sick to your stomach or cannot drink fluids. ?? You have new or worse belly pain. ?? You have blood in your stools. ?? You have a fever. ?? You cannot pass stools or gas. Watch closely for changes in your health, and be sure to contact your doctor if you have any problems. Where can you learn more? [facility] View your After Visit Summary and more online at [email or web address] If you would like to provide feedback about your hospital experience, please call the Office of Patient and Family Relations at . If you have received this After Visit Summary in error, please immediately return it in person to the department, or notify the [facility] Privacy Office by calling toll free at between the hours of 8AM and 5PM to arrange for our retrieval of the documents at no cost to you. Content Version: 12.2 ?? [id number] [employer]. Care instructions adapted under license by [facility]. If you have questions about a medical condition or this instruction, always ask your healthcare professional. [employer] disclaims any warranty or liability for your use of this information. Colonoscopy: What to Expect at Home Your Recovery Your doctor will talk to you about when you will need your next colonoscopy. Your doctor can help you decide how often you need to be checked. This will depend on the results of your test and your risk for colorectal cancer. After the test, you may be bloated or have gas pains. You may need to pass gas. If a biopsy was done or a polyp was removed, you may have streaks of blood in your stool (feces) for a few days. Problems such as heavy rectal bleeding may not occur until several weeks after the test. This isn't common. But it can happen after polyps are removed. This care sheet gives you a general idea about how long it will take for you to recover. But each person recovers at a different pace. Follow the steps below to get better as quickly as possible. How can you care for yourself at home? Activity Rest when you feel tired. ?? You can do your normal activities when it feels okay to do so. Diet ?? Follow your doctor's directions for eating. ?? Unless your doctor has told you not to, drink plenty of fluids. This helps to replace the fluidsthat were lost during the colon prep. ?? Do not drink alcohol. Medicines ?? Your doctor will tell you if and when you can restart your medicines. He or she will also give you instructions about taking any new medicines. ?? If you take blood thinners, such as warfarin (Coumadin), clopidogrel (Plavix), or aspirin, be sure to talk to your doctor. He or she will tell you if and when to start taking those medicines again. Make sure that you understand exactly what your doctor wants you to do. ?? If polyps were removed or a biopsy was done during the test, your doctor may tell you not to take aspirin or other anti-inflammatory medicines for a few days. These include ibuprofen (Advil, Motrin) and naproxen (Aleve). Other instructions ?? For your safety, do not drive or operate machinery until the medicine wears off and you can think clearly. Your doctor may tell you not to drive or operate machinery until the day after your test. ?? Do not sign legal documents or make major decisions until the medicine wears off and you can think clearly. The anesthesia can make it hard for you to fully understand what you are agreeing to. Additional Information for Sedation Patients For patients who received sedation: ?? You may have received medications before and/or during your procedure which effects your judgement and reaction time. ?? Do not drive, operate machinery, drink alcoholic beverages or make important decisions for 24 hours. ?? Be careful on stairs as you may be unsteady on your feet. ?? You may eat a regular diet as tolerated. ?? Do not smoke if you are alone. ?? IV site: Slight redness or tenderness is normal, you can use a warm compress if you would like. If tenderness and/or redness increase or if foul drainage occurs, please contact your Doctor. Please call [phone] before 8pm Mon-Fri with problems, questions or concerns. If you call after 8pm or on weekends, call the Hospital at [phone] and ask to speak to the [employer] control systems designer and the button machine operator will contact that person for you. When should you call for help? Call [phone] anytime you think you may need emergency care. For example, call if: ?? You passed out (lost consciousness). ?? You pass maroon or bloody stools. ?? You have trouble breathing. Call your doctor now or seek immediate medical care if: ?? You have pain that does not get better after you take pain medicine. ?? You are sick to your stomach or cannot drink fluids. ?? You have new or worse belly pain. ?? You have blood in your stools. ?? You have a fever. ?? You cannot pass stools or gas. Watch closely for changes in your health, and be sure to contact your doctor if you have any problems. Where can you learn more? [facility] View your After Visit Summary and more online at [email or web address] If you would like to provide feedback about your hospital experience, please call the Office of Patient and Family Relations at . If you have received this After Visit Summary in error, please immediately return it in person to the department, or notify the [facility] Privacy Office by calling toll free at between the hours of 8AM and 5PM to arrange for our retrieval of the documents at no cost to you. Content Version: 12.2 ?? [id number] [employer]. Care instructions adapted under license by [facility]. If you have questions about a medical condition or this instruction, always ask your healthcare professional. [employer] disclaims any warranty or liability for your use of this information. documented in this encounter Medications at Time of Discharge [...] daily. 12/27/2021 documented as of this encounter H&P Notes * Dia Soto MD - 12/14/2020 2:25 PM EST Gastroenterology and Hepatology Pre-Procedure History and Physical Exam Procedure: EGD: screening colonoscopy Indication: varices follow up, screening colo Patient Active Problem List Diagnosis Code ??? Prostate cancer C61 ??? 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 CKD (chronic kidney disease) N18.9 ??? 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 Chronic allergic rhinitis J30.9 ??? Thrombocytopenia D69.6 ??? Carpal tunnel syndrome on right G56.01 ??? Restrictive lung disease J98.4 ??? Hypertension I10 ??? 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 Portal hypertension K76.6 EXAM: HEENT: Airway examined, oropharynx clear Mallampati Score: II (soft palate, uvula, fauces visible) LUNGS: Clear to auscultation HEART: Regular rate and rhythm, normal S1, S2 ABDOMEN: Normal bowel sounds, soft, non tender, non distended, A/P Proceed with the planned endoscopic procedure. ASA 2 - Patient with mild systemic disease with no functional limitations Sedation Plan: anesthesia Risks and benefits of the procedure explained to the patient. Consent signed. documented in this encounter Plan of Treatment Not on file documented as of this encounter Procedures Procedure Name Priority Date/Time Associated Diagnosis Comments COLONOSCOPY Routine 12/14/2020 2:53 PM EST Colonoscopy, Diagnostic ([id number]) 12/14/2020 2:40 PM EST follow up varices, CRC screening Upper GI Endoscopy, Diagnostic ([id number]) 12/14/2020 2:40 PM EST follow up varices, CRC screening UPPER GI ENDOSCOPY Routine 12/14/2020 2: 25 PM EST documented in this encounter Results * COLONOSCOPY (12/14/2020 2:53 PM EST) COLONOSCOPY [facility] Endoscopy Procedure Date: 12/14/2020 2:53 PM ? Patient Name: Marleny Martin ? Date of : 1940 ? Age: 80 ? Order #: [id number] ? Instrument Name: [id number] ? Procedure: ? Colonoscopy Indications: ? Screening for colorectal malignant ? neoplasm Providers: ? Dia Soto MD Referring MD: ?Edgar Marie Medicines: ? See the Anesthesia note for ? documentation of the administered ? medications Complications: ? No immediate complications. Procedure: ? Pre-Anesthesia Assessment: ? - Prior to the procedure, a History ? and Physical was performed, and ? patient medications, allergies and ? sensitivities were reviewed. The ? patient's tolerance of previous ? anesthesia was reviewed. ? - The risks and benefits of the ? procedure and the sedation options ? and risks were discussed with the ? patient. All questions were answered ? and informed consent was obtained. ? The procedure, indications, benefits, ? risks [...] direct visualization, ? advanced to the terminal ileum. ? Careful inspection was made as the ? colonoscope was withdrawn. The ? colonoscopy was performed without ? difficulty. The patient tolerated the ? procedure well. The quality of the ? bowel preparation was good. ? Retroflexion was not possible due to ? non compliance of rectum. ? Findings: ? The colon (entire examined portion) appeared normal. ? The terminal ileum appeared normal. ? Multiple small diffuse angioectasias were found in ? the distal rectum. ? Internal hemorrhoids were found. ? Moderate Sedation: ? Not applicable - See Anesthesia documentation Impression: ?- The entire examined colon is normal. ? - The examined portion of the ileum ? was normal. ? 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 prostate cancer.. ? - Internal hemorrhoids. ? - No specimens collected. Attending Participation: ? I personally performed the entire procedure. ? I was present during the intraservice time as ? documented by the sedation RN. ? Dia Soto MD 12/14/2020 3:10:07 PM This report has been signed electronically. Number of Addenda: 0 Note Initiated On: 12/14/2020 2:53 PM PROVATION 12/14/2020 2:53 PM EST Edgar Marie MD GENERAL SURGICAL ORD ERABLES PROVATION * UPPER GI ENDOSCOPY (12/14/2020 2:25 PM EST) UPPER GI ENDOSCOPY [facility] Endoscopy Procedure Date: 12/14/2020 2:25 PM ? Patient Name: Marleny Martin ? N: [id number] ? Date of : 1940 ? Age: 80 ? Order #: [id number] ? Instrument Name: [id number] ? Procedure: ? Upper GI endoscopy Indications: ? Follow-up of esophageal varices Providers: ? Dia Soto MD, Michelle Tejeda, ? Candace Martinez RN Referring : ?Edgar Marie [facility]: ? See the Anesthesia note for ? documentation of the administered ? medications Complications: ? No immediate complications. Procedure: ? Pre-Anesthesia Assessment: ? - Prior to the procedure, a History ? and Physical was performed, and ? patient medications, allergies and ? sensitivities were reviewed. The ? patient's tolerance of previous ? anesthesia was reviewed. ? - The risks and benefits of the ? procedure and the sedation options ? and risks were discussed with the ? patient. All questions were answered ? and informed consent was obtained. ? The procedure, indications, benefits, ? risks and alternatives were explained ? to the patient. Specifically ? discussed were potential ? complications including, but not ? limited to, bleeding, perforation, ? infection, missing a cancer, and ? adverse medication reactions. The ? Endoscope was introduced through the ? mouth, and advanced to the third part ? of duodenum. The patient tolerated ? the procedure well. The upper GI ? endoscopy was accomplished without ? difficulty. The patient tolerated the ? procedure well. ? Findings: ? Small (< 5 mm) varices were found in the lower third ? of the esophagus. ? The entire examined stomach was normal. ? The examined duodenum was normal. ? Moderate Sedation: ? Not applicable - See Anesthesia documentation Impression: ?- Small (< 5 mm) esophageal varices. ? - Normal stomach. ? - Normal examined duodenum. ? - No specimens collected. Recommendation: ?- Repeat upper endoscopy in 1 year ? for surveillance. ? Attending Participation: ? I personally performed the entire procedure. ? I was present during the intraservice time as ? documented by the sedation RN. ? Dia Soto MD 12/14/2020 2:53:39 PM This report has been signed electronically. Number of Addenda: 0 Note Initiated On: 12/14/2020 2:25 PM PROVATION 12/14/2020 2:25 PM EST Edgar Marie MD GENERAL SURGICAL ORD ERABLES PROVATION documented in this encounter Visit Diagnoses Not on filedocumented in this encounter Administered Medications Inactive Administered Medications - up to 3 most recent administrations Medication Order MAR Action Action Date Dose Rate Site lactated ringers infusion 100 mL/hr, Intravenous, CONTINUOUS, Starting on Fayn 12/14/20 at 1400, Until Fany 12/14/20 at 1556, Endoscopy (Day of Procedure) New Bag 12/14/2020 1:55 PM EST 100 mL/hr 100 mL/hr documented in this encounter Active and Recently Administered Medications Times are shown in EST. Continuous Medication Order 12/12/2020 12/13/2020 12/14/2020 lactated ringers infusion (CANCELED) 100 mL/hr, Intravenous, CONTINUOUS, Starting on Fany 12/14/20 at 1400, Until Fany 12/14/20 at 1556, Endoscopy (Day of Procedure) 1355 (New Bag - Prov ider: Kadie Fair RN) documented in this encounter Care Teams Weatherization Specialist Relationship Specialty Start Date End Date Edgar Marie MD PCP - General Family Medicine 08/30/16 documented as of this encounter
--- OUTSIDE RECORDS SUMMARY | 2024-09-03 17:51 | XMS_ITS | Encounter Summary ---
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 02/25/2017 10/28/2023 documented as of this encounter Plan of Treatment Not on file documented as of this encounter Procedures Procedure Name Priority Date/Time Associated Diagnosis Comments US ABDOMEN LIMITED HEPATOLOGY PROTOCOL Routine 04/28/2023 9:18 AM EDT Cryptogenic cirrhosis documented in this encounter Results * US Abdomen Limited Hepatology Protocol (04/28/2023 [...] who have questions, please contact the health healthcare educator that requested your imaging first. ? Alonzo Ernandez, Staff Physician Electronically Signed Final Report ?? 04/28/2023 09:31 am Narrative 04/28/2023 9:32 AM EDT Abdominal ? (Signed Final 04/28/2023 09:31 am) PATIENT INFO: ID #: ? [id number] ?: ??[birth year] (82 yrs)(M) Name: ? MARLENY Sarina DIXON ? Visit Date: 04/28/2023 09:04 am PERFORMED BY: Attending: ?Awais CINTRON MD, Alonzo Payne Performed By: ? Yin Gomez RDMS Referred By: ?BRITTANY RICO Location: ? [place] [facility]ICE[facility]S) [facility] Protocol - Abdominal ?19756 Limited Survey Single Organ or Quadrant - [id number] INDICATIONS: cirrhosis, screen for HCC COMPARISON: US [...] 04/28/2023 09:31 am) PATIENT INFO: ID #: [id number] : [birth year] (82 yrs)(M) Name: MARLENY DIXON Visit Date: 04/28/2023 09:04 am PERFORMED BY: Attending: Awais CINTRON MD, Arthur L. Performed By: Yin Gomez RDMS Referred By: BRITTANY RICO Location: [place] SERVICE(S) PROVIDED: [facility] - Hepatology Protocol - Abdominal 21259 Limited Survey Single Organ or Quadrant - [id number] INDICATIONS: cirrhosis, screen for HCC COMPARISON: US [...] who have questions, please contact the health healthcare educator that requested your imaging first. 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
--- OUTSIDE RECORDS SUMMARY | 2024-09-03 17:51 | XMS_ITS | Encounter Summary ---
Author Organization [facility] Address 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 02/25/2017 10/28/2023 documented as of this encounter Plan of Treatment Not on file documented as of this encounter Procedures Procedure Name Priority Date/Time Associated Diagnosis Comments US ABDOMEN LIMITED HEPATOLOGY PROTOCOL Routine 11/08/2022 10:07 AM EST Cryptogenic cirrhosis documented in this encounter Results * US Abdomen Limited Hepatology Protocol (11/08/2022 [...] extrahepatic biliary ductal dilation. 4. No ascites. Electronically signed by: Michele Azevedo MD, [facility] ([phone]), at 11/08/2022 11:47 AM Thank you for letting us participate in the care of this patient. If you are a health care provider and have any questions regarding this report, please contact the number above. For patients who have questions, please contact the health occasional caregiver that requested your imaging first. ?Michele Azevedo, Staff Physician Electronically Signed Final Report ?? 11/08/2022 11:54 am Narrative 11/08/2022 11:54 AM EST Abdominal ? (Signed Final 11/08/2022 11:54 am) PATIENT INFO: ID #: ? [id number] ?: ??[birth year] (82 yrs)(M) Name: ? MARLENY DIXON ? Visit Date: 11/08/2022 10:05 am PERFORMED BY: Performed By: ? Dilcia Washington RDMS Attending: ?Michele Azevedo MD Referred By: ?DIA RICO Location: ? [facility] Protocol - Abdominal ?19804 Limited Survey Single Organ or Quadrant - [id number] INDICATIONS: cirrhosis, screen for varices ------ LIVER: [...] 11/08/2022 11:54 am) PATIENT INFO: ID #: [id number] : 44 (82 yrs)(M) Name: MARLENY DIXON Visit Date: 11/08/2022 10:05 am PERFORMED BY: Performed By: Dilcia Washington RDMS Attending: Michele Azevedo MD Referred By: DIA RICO Location: [facility] SERVICE(S) PROVIDED: [facility] - Hepatology Protocol - Abdominal 16763 Limited Survey Single Organ or Quadrant - [id number] INDICATIONS: cirrhosis, screen for varices ------ LIVER: [...] extrahepatic biliary ductal dilation. 4. No ascites. Electronically signed by: Michele Azevedo MD, [facility] ([phone]), at 11/08/2022 11:47 AM Thank you for letting us participate in the care of this patient. If you are a health care provider and have any questions regarding this report, please contact the number above. For patients who have questions, please contact the health occasional caregiver that requested your imaging first. 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
--- OUTSIDE RECORDS SUMMARY | 2024-09-03 17:51 | XMS_ITS | Encounter Summary ---
[place] [address] Care Team Providers Care Obstetrics Gynecology Physician Name Role Phone Edgar Marie MD Primary Care Provider [phone] Encounter Details Date Type Department Care Team (Latest Contact Info) Description 06/16/2024 11:30 AM EDT Laboratory Appointment Lab [address] [place] [id number] Hepatic cirrhosis, unspecified hepatic cirrhosis type, unspecified [...] Priority Date/Time Associated Diagnosis Comments HEMOGRAM Routine 06/16/2024 10:38 AM EDT Hepatic cirrhosis, unspecified hepatic cirrhosis type, unspecified whether ascites present DIFFERENTIAL, AUTOMATED Routine 06/16/2024 10:38 AM EDT [...] present documented in this encounter Results * (ABNORMAL) Differential, Automated (06/16/2024 10:38 AM EDT) Neutrophil % 64.0 % [facility] Neutrophil Absolute 2.41 1.70 - 6.10 x10(3)/mc L [facility] Lymph % 19.7 % [facility] Lymphocytes Abs 0.7(L) 0.9 - 3.2 x10(3)/mc L [facility] Monocyte % 6.1 % [facility] Monocyte Abs 0.2(L) 0.3 - 0.9 x10(3)/mc L [facility] Eos % 8.8 % [facility] Eosinophils Abs 0.3 0.0 - 0.4 x10(3)/mc L [facility] Basophil % 1.1 % [facility] Baso Absolute 0.0 0.0 - 0.1 x10(3)/mc L [facility] Immature Gran % 0.30 % [facility] Comment: Immature granulocytes(IG's)percentage and absolute count will include metamyelocytes, myelocytes, and promyelocytes. Blood smears from CBCs yielding IG's will be scanned manually for concordance. If this scan disagrees with the automated IG or if promyelocytes are noted, a manual differential will be performed. Immature Gran Absolute 0.01 0.00 - 0.04 x10(3)/mc L [facility] Blood 06/16/2024 10:3 8 AM EDT 06/16/2024 10:48 AM EDT Narrative Resulting Agency Comment Spec In Lab Sloane Montoya ASHLY HEMATOLOGY ORDERAB LES Performing Organization Address City/[facility]/ZIP Co de Phone Number [facility] [place] [address] * (ABNORMAL) Hemogram (06/16/2024 10:38 AM EDT) White Blood Cell 3.8(L) 4.0 - 9.5 x10(3)/mc L [facility] Red Blood Cell 3.31(L) 4.58 - 5.54 x10(6)/mc L [facility] Hemoglobin 10.6(L) 13.7 - 16.5 g/dL [facility] Hematocrit 31.0(L) 40.5 - 48.5 % [facility] Mean Cell Volume 93.7(H) 82.9 - 93.1 [facility] Mean Cell Hemoglobin 32.0 27.5 - 32.1 [facility] Mean Cell Hemoglobin Concentration 34.2 32.0 - 35.7 g/dL [facility] Platelet 54(L) 145 - 357 x10(3)/mc L [facility] RDW Standard Deviation 47.8(H) 36.0 - 45.0 [facility] RDW coefficient of variation 14.1(H) 11.4 - 13.8 % [facility] Mean Platelet Volume 12.1 7.6 - 12.9 [facility] NRBC% auto 0.0 % [facility] NRBC Absolute 0.000 0.000 - 0.000 x10(3)/ L [facility] Blood 06/16/2024 10:3 8 AM EDT 06/16/2024 10:48 AM EDT Narrative Resulting Agency Comment Spec In Lab Sloane Montoya ASHYL HEMATOLOGY ORDERAB LES [facility] [place] [address] * AFP tumor marker (06/16/2024 10:38 AM EDT) [facility] Alpha Fetoprotein 3.1 <=8.3 ng/mL [facility] Comment: This result was generated using a Kiah Mikaela immunoassay. ??Results obtained from other methods or manufacturers cannot be used interchangeably with this method. Blood 06/16/2024 10:3 8 AM EDT 06/16/2024 10:48 AM EDT Narrative Resulting Agency Comment Spec In Lab Sloane Montoya APRN CHEMISTRY ORDERABL ES [facility] [place] [address] * (ABNORMAL) Comprehensive metabolic panel (non-fasting) (06/16/2024 10:38 AM EDT) [facility] Glucose 112 65 - 199 mg/dL [facility] Comment:Diabetes: >=200 mg/d L plus symptoms Blood Urea Nitrogen 18 10 - 20 mg/dL [facility] Creatinine 1.53(H) 0.80 - 1.50 mg/dL [facility] Sodium 142 135 - 145 mmol/L [facility] Potassium 4.3 3.5 - 5.0 mmol/L [facility] Comment: Please note: ??Patients with WBC >100,000 may have falsely elevated Potassium levels. ??For accurate Potassium quantification in these patients send serum separator tube (gold top) for subsequent determinations. ??Contact the Clinical Chemistry Laboratory if there are any questions. Chloride 109(H) 98 - 107 mmol/L [facility] Carbon Dioxide 20(L) 22 - 31 mmol/L [facility] Anion Gap 13 5 - 15 mmol/L [facility] Calcium 8.9 8.5 - 10.5 mg/dL [facility] Protein, Total 7.4 6.1 - 8.0 g/dL [facility] Albumin 2.9(L) 3.2 - 5.2 g/dL [facility] Aspartate Aminotransferase 32 0 - 39 unit/L [facility] Alanine Aminotransferase 17 0 - 55 unit/L [facility] Alkaline Phosphatase 163(H) 40 - 130 unit/L [facility] Bilirubin, Total 2.1(H) 0.2 - 1.3 mg/dL [facility] Est Glomerular Filtration Rate 45(L) >=60 mL/min/1. 73 m?? [facility] Comment: This patient's estimated GFR [...] Agency Comment Spec In Lab Sloane Montoya APRN CHEMISTRY ORDERABL ES [facility] [place] [address] * (ABNORMAL) Prothrombin Time (06/16/2024 10:38 AM EDT) Prothrombin Time 17.3(H) 9.4 - 12.5 sec [facility] International Normalization Ratio 1.5 [facility] Comment: An INR <2.0 indicates [...] Narrative Resulting Agency Comment Spec In Lab Sloanerandell Montoya CAFETERIA CLERK HEMATOLOGY ORDERAB LES Performing Organization Address City/State/[facility] Co de Phone Number [facility] [place] [address] documented in this encounter Visit Diagnoses Diagnosis Hepatic cirrhosis, unspecified hepatic cirrhosis type, unspecified whether ascites present documented in this encounter Care Teams Obstetrics Gynecology Physician Relationship Specialty Start Date End Date Edgar Marie MD PCP - General Family Medicine 08/30/16 documented as of this encounter
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
--- OUTSIDE RECORDS SUMMARY | 2024-09-03 17:51 | XMS_ITS | Encounter Summary ---
Author Organization [facility] Address [facility] [place] [address] Care Team Providers Care Bottom Sander Name Role Phone Edgar Marie MD Primary Care Provider [phone] Reason for Visit * Auth/Cert Specialty Diagnoses [...] Expiration Date Visits Re quested Visits Authorized [id number] 1 1 Encounter Details Date Type Department Care Team (Late st Contact Info) Description 12/27/2021 1:42 PM EST - 12/27/2021 6:15 PM [facility] Encounter [place] [address] Justin Santiago MD [facility] [place] [address] Discharge Disposition: Home Social History Tobacco Use [...] Sign Reading Time Taken Comments Blood Pressure 120/90 12/27/2021 5:45 PM EST Pulse 61 12/27/2021 3:36 PM EST Temperature 36.2 ??C (97.2 ??F) 12/27/2021 3:36 PM ES T Respiratory Rate 20 12/27/2021 5:20 PM EST Oxygen Saturation 98% 12/27/2021 5:45 PM EST Inhaled Oxygen Concentration - - Weight 77.1 kg (170 lb) 12/27/2021 3:36 PM EST Height - - Body Mass Index 28.74 01/08/2021 10:29 AM EST documented in this encounter Discharge Instructions * Discharge Instructions* Jarrod Inman, RN - 12/27/2021 5:23 PM EST Upper Endoscopy (EGD) and Colonoscopy: What to Expect at Home Your Recovery After you have an EGD and colonoscopy, you will stay at the clinic for 1 to 2 hours until the medicines wear off. Then you can go home. But you will need to arrange for a ride. Your doctor will tell you when you can eat and do your other usual activities. Your doctor will talk to you about when you will need your next colonoscopy. Your doctor can help you decide how often you need to be checked. This will depend on the results of your test and your risk for colorectal cancer. You may have a sore throat for a day or two after the test. After the test, you may be bloated or have gas pains. You may need to pass gas. If a biopsy was done or a polyp was removed, you may have streaks of blood in your stool (feces) for a few days. Problems such as heavy rectal bleeding may notoccur until several weeks after the test. This isn't common. But it can happen after polyps are jacoby jeana. This care sheet gives you a general idea about how long it will take for you to recover. But each person recovers at a different pace. Follow the steps below to get better as quickly as possible. How can you care for yourself at home? Activity Rest when you feel tired. You can do your normal activities when it feels okay to do so. Diet Follow your doctor's directions for eating. Unless your doctor has told you not to, drink plenty of fluids. This helps to replace the fluids that were lost during the colon prep. Do not drink alcohol. Medicines If you have a sore throat the day after the test, use an dfed-kxc-deugonz spray or lozenges to numbyour throat. Warm salt water gargles can also help the discomfort. Your doctor will tell you if and when you can restart your medicines. He or she will also give you instructions about taking any new medicines. If you take blood thinners, such as warfarin (Coumadin), clopidogrel (Plavix), or aspirin, be sure to talk to your doctor. He or she will tell you if and when to start taking those medicines again. Make sure that you understand exactly what your doctor wants you to do. If polyps were removed or a biopsy was done during the test, your doctor may tell you not to take aspirin or other anti-inflammatory medicines for a few days. These include ibuprofen (Advil, Motrin) and naproxen (Aleve). Other instructions for patients who received sedation: You may have received medications during the procedure which effect your judgement and reaction time. For your safety, do not drive or operate machinery until the medicine wears off and you can think clearly. Your doctor may tell you not to drive or operate machinery until the day after your test. Do not sign legal documents or make major decisions until the medicine wears off and you can think clearly. The anesthesia can make it hard for you to fully understand what you are agreeing to. Be careful on stairs and when standing up quickly as you may be unsteady on your feet. IV site: Slight redness or tenderness is normal. You can use a warm compress if you would like. If tenderness and/or redness increase or if foul drainage occurs, please contact your doctor. Please call [phone] before 8pm Mon-Fri with problems, questions, or concerns. If you call after 8pm or on weekends, call the Hospital at [phone] and ask for the Head Bucker oncology technician and the finishing pan operator will contact that person for you. When should you call for help? Call 202 anytime you think you may need emergency care. For example, call if: You passed out (lost consciousness). You pass maroon or bloody stools. You have trouble breathing. Call your doctor now or seek immediate medical care if: You have pain that does not get better after you take pain medicine. You are sick to your stomach or cannot drink fluids. You have new or worse belly pain. You have blood in your stools. You have a fever. You cannot pass stools or gas. Your throat still hurts after a day or two. Your throat still hurts after a day or two. Watch closely for changes in your health, and be sure to contact your doctor if you have any problems. Where can you learn more? You can view health information on [employer], your personal patient account. Log in or sign up today. Content Version: 12.2 ?? [id number] [employer]. Care instructions adapted under license by [facility]. If you have questions about a medical condition or this instruction, always ask your healthcare professional. [employer] disclaims any warranty or liability for your [...] 02/25/2017 10/28/2023 documented as of this encounter H&P Notes * Justin Santiago MD - 12/27/2021 4:29 PM EST Patient Name: Marleny Martin Patient Age: 81 y.o. Birthdate: 1940 Admit date: 12/27/2021 Attending Physician: Justin Santiago MD Gastroenterology & Hepatology Pre-Procedure History and Physical Planned Procedure: EGD: Colonoscopy: Indication: variceal surveillance, rectal bleeding We did discuss the fact that he recently had colonoscopy in November 2020. He is unsure why this wasscheduled again. He reports some intermittent rectal bleeding and would like ot repeat the colonoscopy today. Patient Active Problem List Diagnosis Code ??? Prostate cancer C61 ??? 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 CKD (chronic kidney disease) N18.9 ??? 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 Chronic allergic rhinitis J30.9 ??? Thrombocytopenia D69.6 ??? Carpal tunnel syndrome on right G56.01 ??? Restrictive lung disease J98.4 ??? Hypertension I10 ??? 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 Portal hypertension K76.6 Medications: Reviewed in [facility] Allergies Allergen Reactions ??? Dwayne Inhibitors Social History/Family History: Reviewed in [facility]. No changes Exam: Patient Vitals for the past 24 hrs: Temp Pulse Resp BP SpO2 O2 Device 12/27/21 1536 36.2 ??C (97.2 ??F) 61 20 156/64 98 % RA GEN: NAD, AAOX3 HEENT: NC/AT dryMM, anicteric Chest: CTAB Heart: RRR, nl s1, s2 Abdomen: normal bowel sounds, soft, non tender Assessment and Plan: Proceed with EGD: Colonoscopy: ASA Grade: ASA 3 - Patient with moderate systemic disease with functional limitations Mallampati: II (soft palate, uvula, fauces visible) Sedation plan: MAC Risks and benefits of the procedure were discussed with the patient. Risks discussed including bleeding, infection, reaction to anesthesia, perforation or other intraabdominal trauma, pancreatitis (if applicable), missing a cancer (if applicable) and/or other unforseen complication. Informed Consent signed by patient (or technical service representative). documented in this encounter Plan of Treatment Not on file documented as of this encounter Procedures Procedure Name Priority Date/Time Associated Diagnosis Comments COLONOSCOPY, DIAGNOSTIC (WRVU 3.26) 12/27/2021 4:40 PM EST follow up varices, CRC screening EGD, UPPER GI ENDOSCOPY (WRVU 2.09) 12/27/2021 4:40 PM EST follow up varices, CRC screening UPPER GI ENDOSCOPY Routine 12/27/2021 4: 34 PM EST COLONOSCOPY Routine 12/27/2021 4:34 PM EST documented in this encounter Results * UPPER GI ENDOSCOPY (12/27/2021 4:34 PM EST) UPPER GI ENDOSCOPY [facility] Endoscopy ___ Procedure Date: 12/27/2021 4:34 PM ? Patient Name: Marleny Martin ? N: [id number] ? Date of : 1940 ? Age: 81 ? Order #: [id number] ? Instrument Name: [id number] ? ___ Procedure: ? Upper GI endoscopy Indications: ? Follow-up of esophageal varices Patient Profile: ? This is a 81 year old male. Providers: ? Justin Santiago MD, Isabella Martinez ? Blake Mcdowell, Plastic Mould Maker Referring MD: ?Edgar Marie Requesting Provider: Miguel Hinds Medicines: ? Monitored Anesthesia Care Complications: ? No immediate complications. ___ Procedure: ? Pre-Anesthesia Assessment: ? - Prior [...] in the lower third ? of the esophagus between 25-35 cm. They flatten with ? insufflation. ? The Z-line was regular and was found 36 cm from the ? incisors. ? Mild portal hypertensive gastropathy was found in the ? gastric fundus and in the gastric body. ? The exam of the stomach was otherwise normal. No ? gastroesophageal varices on retroflexion. ? The examined duodenum was normal. ? Moderate Sedation: ? Not applicable - See Anesthesia documentation Impression: ?- Small (< 5 mm) esophageal varices. ? - Z-line regular, 36 cm from the ? incisors. ? - Portal hypertensive gastropathy. ? - Normal examined duodenum. ? - No specimens collected. Recommendation: ?- Return to GI/Hepatology clinic. ? Attending Participation: ? I personally performed the entire procedure. ? Dr. Deric Santiago __ Justin Santiago MD 12/27/2021 5:30:23 PM Number of Addenda: 0 Note Initiated On: 12/27/2021 4:34 PM PROVATION 12/27/2021 4:34 PM EST Edgar Marie MD GENERAL SURGICAL ORD ERABLES PROVATION * COLONOSCOPY (12/27/2021 4:34 PM EST) COLONOSCOPY [facility] Endoscopy Procedure Date: 12/27/2021 4:34 PM ? Patient Name: Marleny Martin ? Date of : 1940 ? Age: 81 ? Order #: [id number] ? Instrument Name: [id number] ? Procedure: ? Colonoscopy Indications: ? Rectal bleeding Providers: ? Justin Santiago MD, Isabella Martinez ? Blake Mcdowell, Plastic Mould Maker Referring MD: ?Edgar Marie Medicines: ? Monitored [...] 3:54 PM EST 100 mL/hr 100 mL/hr documented in this encounter Active and Recently Administered Medications Times are shown in EST. Continuous Medication Order 12/25/2021 12/26/2021 12/27/2021 lactated ringers infusion (CANCELED) 100 mL/hr, Intravenous, CONTINUOUS, Starting on Fany 12/27/21 at 1545, Until Fany 12/27/21 at 1812, Endoscopy (Day of Procedure) 1554 (New Bag - Prov ider: Michelle Tejeda RN)1701 (Paused - Provider: Alisia Wynne CRNA - Comment: Switch to gravity)1702 (Restarted - Provider: Alisia Wynne CRNA)1758 (Stopped - Provider: Abel Justice RN) documented in this encounter Care Teams Bottom Sander Relationship Specialty Start Date End Date Edgar Marie MD PCP - General Family Medicine 08/30/16 documented as of this encounter
--- OUTSIDE RECORDS SUMMARY | 2024-09-03 17:51 | XMS_ITS | Encounter Summary ---
Author Organization [facility] [place] [address] Care Team Providers Care Mathematical Scientist Name Role Phone Edgar Marie MD Primary Care Provider [phone] Encounter Details Date Type Department Care Team (Latest Contact Info) Description 12/30/2022 Travel Social History Tobacco Use Types Packs/Day [...] on filedocumented in this encounter Care Teams Mathematical Scientist Relationship Specialty Start Date End Date Edgar Marie MD PCP - General Family Medicine 08/30/16 documented as of this encounter
--- OUTSIDE RECORDS SUMMARY | 2024-09-03 17:51 | XMS_ITS | Encounter Summary ---
Author Organization [facility] [place] [address] Care Team Providers Care Call Center Recruiter Name Role Phone Edgar Marie MD Primary Care Provider [phone] Encounter Details Date Type Department Care Team (Late st Contact Info) Description 10/09/2020 Tele[place] [phone] Pushpa Combs Social History Tobacco Use Types Packs/Day Years [...] encounter Miscellaneous Notes * Telephone Encounter - Pushpa Combs - 10/09/2020 12:20 PM EST Marleny Martin [id number] EGD & Colonoscopy with Anesthesia in 2020 per [facility] 10/09/2020 Diagnosis/Indication: varices, CRC screening 1. Have you ever had a/an Upper Endoscopy & Colonoscopy before? Yes: Date colon[facility] in [email or web address] [place] If yes, did you have any problems with the procedure? No What type of sedation was used: Other: anesthesia for colonosocpy and IVCS for EGD 2. Do you take any Blood Thinners? No 3. Do you have a Pacemaker or Defibrillator device? No 4. Are you a diabetic? No 5. Do you have any Allergies to Eggs, Latex or Medications? Yes: christian inhibitors 6. Do you take any Oral Iron Supplements (Including multi-vitamins)? No 7. Do you have a history of three or more abdominal surgeries? No 8. Have you had a problem with sedation or anesthesia? No 9. Do you have a c-pap machine or oxygen tank? Neither 10. Do you take prescription narcotic pain medications, including suboxone or methodone? No 11. Do you have a preference regarding the gender of your provider? No Preference 12. Is there any other information you would like to give us to aid in scheduling? No 13. Say to patient: You must have a responsible libertarian who will drive you to your procedure, stay oncampus for the entire duration of your procedure, and drive you home from your procedure? yes *Please Verify the height and weight, and adjust if height and/or weight have changed* Estimated body mass index is 29.54 kg/m?? as calculated from the following: Height as of an earlier encounter on 10/09/20: 163.8 cm (5' 4.5). Weight as of an earlier encounter on 10/09/20: 79.3 kg (174 lb 12.8 oz). Age:80 y.o. documented in this encounter Plan of Treatment Not on file documented as of this encounter Visit Diagnoses Not on filedocumented in this encounter Care Teams Call Center Recruiter Relationship Specialty Start Date End Date Edgar Marie MD PCP - General Family Medicine 08/30/16 documented as of this encounter
--- OUTSIDE RECORDS SUMMARY | 2024-09-03 17:51 | XMS_ITS | Encounter Summary ---
Author Organization [facility] [place] [address] Care Team Providers Care Assayer Helper Name Role Phone Edgar Marie MD Primary Care Provider Reason for Referral * Consultation (Routine) - Closed Specialty Diagnoses / Procedures Referred By Contac t Referred To Contact Gastroenterology Diagnoses Hepatic cirrhosis, unspecified hepatic cirrhosis type, unspecified whether ascites present Esophageal varices without bleeding, unspecified esophageal varices type Hepatic cirrhosis, / Esophageal varices without bleeding, unspecified esophageal varices type Edgar Marie MD [address] [place] [address] [place] [address] [facility] [place] [address] Referral ID Status Reason Start Date Expiration Date V isits Requested Visits Authorized [id number] Closed Consult, Test & Treat PCP Updated and/or Approved 10/24/2022 10/24/2023 6 6 Encounter Details Date Type Department Care Team (Late st Contact Info) Description 10/24/2022 Transcribe Orders eDH Incoming Referrals [phone] Edgar Marie MD [address] [place] [address] [place] [address] Hepatic cirrhosis, unspecified hepatic cirrhosis type, unspecified whether ascites present; Esophageal varices without bleeding, unspecified esophageal varices type Social History Tobacco Use Types Packs/Day [...] as of this encounter Plan of Treatment Scheduled Referrals Name Type Priority Associated Diagnoses Order Schedule Referral to Gastroenterology Outpatient Referral Routine Hepatic cirrhosis, unspecified hepatic cirrhosis type, unspecified whether ascites present Esophageal varices without bleeding, unspecified esophageal varices type Ordered: 10/24/2022 documented as of this encounter Visit Diagnoses Diagnosis Hepatic cirrhosis, unspecified hepatic cirrhosis type, unspecified whether ascites present Esophageal varices without bleeding, unspecified esophageal varices type documented in this encounter Care Teams Assayer Helper Relationship Specialty Start Date End Date Edgar Marie MD PCP - General Family Medicine 08/30/16 documented as of this encounter
--- OUTSIDE RECORDS SUMMARY | 2024-09-03 17:51 | XMS_ITS | Encounter Summary ---
Author Organization [facility] Address [facility] [place] [address] Care Team Providers Care Ceramics Technician Name Role Phone Edgar Marie MD Primary Care Provider [phone] Encounter Details Date Type Department Care Team (Late st Contact Info) Description 09/17/2021 Telephone [place] [phone] Dario February Social History Tobacco Use Types Packs/Day Years [...] encounter Miscellaneous Notes * Telephone Encounter - Dario February - 09/17/2021 12:55 PM EDT Marleny Martin [id number] Diagnosis/Indication: 1 yr f/u 1. Have you ever had a/an Upper Endoscopy & Colonoscopy before? Yes: Date 12/14/20 If yes, did you have any problems with the procedure? No What type of sedation was used: General Anesthesia 2. Do you take any blood thinners or have you been diagnosed with a bleeding disorder that increases your risk of bleeding with procedures? No 3. Do you have a Pacemaker or Defibrillator device? No 4. Are you a diabetic? No 5. Do you have any Allergies to Eggs, Latex or Medications? No 6. Do you take any Oral Iron Supplements (Including multi-vitamins)? Yes (Iron) 7. Do you have a history of three or more abdominal surgeries? No 8. Have you had a problem with sedation or anesthesia? No 9. Do you use a c-pap machine or oxygen tank? Neither 10. Do you take prescription narcotic pain medications, including suboxone or methodone? No 11. Do you have a preference regarding the gender of your provider? No Preference 12. Is there any other information you would like to us to note for the provider and nursing team who will perform your case? No 13. Say to patient: You must have a responsible green party who will drive you to your procedure, stay oncampus for the entire duration of your procedure, and drive you home from your procedure? *Please Verify the height and weight, and adjust if height and/or weight have changed* Estimated body mass index is 28.89 kg/m?? as calculated from the following: Height as of 01/08/21: 163.8 cm (5' 4.49). Weight as of 01/08/21: 77.5 kg (170 lb 14.4 oz). Age:81 y.o. documented in this encounter Plan of Treatment Not on file documented as of this encounter Visit Diagnoses Not on filedocumented in this encounter Care Teams Ceramics Technician Relationship Specialty Start Date End Date Edgar Marie MD PCP - General Family Medicine 08/30/16 documented as of this encounter
--- OUTSIDE RECORDS SUMMARY | 2024-09-03 17:51 | XMS_ITS | Encounter Summary ---
Author Organization Replaced By [facility] [place] [address] Care Team Providers Care Dental Instrument Maker Name Role Phone Edgar Marie MD Primary Care Provider [phone] Encounter Details Date Type Department Care Team (Latest Contact Info) Description 04/28/2023 Travel Social History Tobacco Use Types Packs/Day [...] on filedocumented in this encounter Care Teams Dental Instrument Maker Relationship Specialty Start Date End Date Edgar Marie MD PCP - General Family Medicine 08/30/16 documented as of this encounter
--- OUTSIDE RECORDS SUMMARY | 2024-09-03 17:51 | XMS_ITS | Encounter Summary ---
[place] [address] Care Team Providers Care Strategic Debriefing Specialist Name Role Phone Edgar Marie MD Primary Care Provider [phone] Encounter Details Date Type Department Care Team (Late st Contact Info) Description 01/08/2021 10:30 AM EST Office [place] [phone] Miguel Hinds PA [address] [place] [address] [place] [address] Cryptogenic cirrhosis (Primary Dx); Portal hypertension; Anemia, unspecified type; Restrictive lung disease Social History Tobacco Use Types Packs/Day [...] Sign Reading Time Taken Comments Blood Pressure 149/62 01/08/2021 10:29 AM EST Pulse 83 01/08/2021 10:29 AM EST Temperature - - Respiratory Rate - - Oxygen Saturation - - Inhaled Oxygen Concentration - - Weight 77.5 kg (170 lb 14.4 oz) 021 10:29 AM EST Height 163.8 cm (5' 4.49) 01/08/2021 1 0:29 AM EST Body Mass Index 28.89 01/08/2021 10:29 AM EST documented in this encounter Progress Notes * Miguel Hinds PA - 01/08/2021 10:30 AM EST Gastroenterology and Hepatology Follow Up Note Patient: Marleny Martin Sex: male : 1940 Provider: Miguel Hinds [...] -EGD 12/14/20: small EV, repeat 1 year -[place] 12/15/20: no polyps, 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 Prostate cancer C61 ??? 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 CKD (chronic kidney disease) N18.9 ??? 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 Chronic allergic rhinitis J30.9 ??? Thrombocytopenia D69.6 ??? Carpal tunnel syndrome on right G56.01 ??? Restrictive lung disease J98.4 ??? Hypertension I10 ??? 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 Portal hypertension K76.6 Interval History: Mr. Marleny Martin is 80 y.o. with a history of cirrhosis with portal hypertension. We last met in September. He had an ultrasound and labs prior to today's appointment. He is feeling overall well today without any new major complaints. He does note however some lower abdominal discomfort intermittently, especially after eating. Has been having some more straining with bowel movements. He does not take a fiber supplement or stool softener. He is having bowel movements most days however. He states that he has not yet received his hepatitis vaccines, but he has received both of his COVID-19 vaccines. The second vaccination gave him some shaking chills and fevers but this resolved after 24 hours. MEDICATIONS: Current Outpatient Medications Medication Sig Dispense Refill ??? aspirin EC 81 mg Tablet, Delayed Release (E.C.) Take 81 mg by mouth daily. ??? acetaminophen (Tylenol) 325 mg Tablet Take [...] Reactions ??? Dwayne Inhibitors PHYSICAL EXAMINATION: Vitals: 01/08/21 1029 BP: 149/62 BP Location (NBP): Left arm Patient Position: Sitting BP Cuff Sizes: Adult (25-34 cm) Pulse: 83 Weight: 77.5 kg (170 lb 14.4 oz) Height: 163.8 cm (5' 4.49) Body mass index is 28.89 kg/m??. Constitutional: Well appearing elderly man, appropriate, no acute distress Skin: Pale, no cyanosis, no palmar erythema, no jaundice, no spider angiomata Head: Normocephalic, sclerae anicteric Abdomen: Increased central adiposity, nondistended, nontender Neurologic: Alert and oriented x 3, no asterixis or tremor Extremities: No edema, no clubbing, no muscle wasting, no joint swelling ?? PERTINENT LABS AND IMAGING: Recent Results (from the past 24 hour(s)) Prothrombin Time Result Value Ref Range PT 15.1 (H) 9.4 - 12.5 sec INR 1.3 Comprehensive metabolic panel (non-fasting) Result Value Ref Range Glucose Lvl 94 65 - 199 mg/dL BUN 14 10 - 20 mg/dL Creatinine 1.27 0.80 - 1.50 mg/dL Sodium 141 135 - 145 mmol/L Potassium 4.2 3.5 - 5.0 mmol/L Chloride 107 98 - 107 mmol/L CO2 26 22 - 31 mmol/L Anion Gap 8 5 - 15 mmol/L Calcium 9.0 8.5 - 10.5 mg/dL Total Protein 8.4 (H) 6.1 - 8.0 gm/dL Albumin 3.3 3.2 - 5.2 gm/dL AST 22 0 - 39 unit/L ALT 15 0 - 55 unit/L Alk Phos 160 (H) 40 - 130 unit/L Total Bilirubin 0.7 0.2 - 1.3 mg/dL Estimated GFR 54 (L) >=60 mL/min/1.73 m?? Hemogram Result Value Ref Range WBC 3.7 (L) 4.0 - 9.5 x10(3)/mcL RBC 3.77 (L) 4.58 - 5.54 x10(6)/mcL Hemoglobin 9.9 (L) 13.7 - 16.5 gm/dL Hematocrit 31.3 (L) 40.5 - 48.5 % MCV 83.0 82.9 - 93.1 fL MCH 26.3 (L) 27.5 - 32.1 pg MCHC 31.6 (L) 32.0 - 35.7 gm/dL Platelets 74 (L) 145 - 357 x10(3)/mcL RDWSD 42.7 36.0 - 45.0 fL RDWCV 14.1 (H) 11.4 - 13.8 % MPV 12.6 7.6 - 12.9 fL nRBC % Auto 0.0 % nRBC Abs Auto 0.000 0.000 - 0.000 x10(3)/mcL Differential, Automated Result Value Ref Range Neutrophils % 69.4 % Neutr Abs (ANC) 2.57 1 - 6 x10(3)/mcL Lymphocytes % 19.5 % Lymphocytes Abs 0.7 (L) 0.9 - 3.2 x10(3)/mcL Monocytes % 5.7 % Monocyte Abs 0.2 (L) 0.3 - 0.9 x10(3)/mcL Eosinophils % 4.3 % Eosinophils Abs 0.2 0.0 - 0.4 x10(3)/mcL Basophils % 0.8 % Basophils Abs 0.0 0.0 - 0.1 x10(3)/mcL Immature Gran % 0.30 % Sadie Gran Abs 0.01 0.00 - 0.04 x10(3)/mcL Iron and TIBC Result Value Ref Range Iron 47 45 - 160 mcg/dL TIBC 334 250 - 450 mcg/dL Iron Saturation 14 (L) 20 - 50 % MELD-Na score: 12 at 01/08/2021 9:48 AM MELD score: 12 at 01/08/2021 9:48 AM Calculated from: Serum Creatinine: 1.27 mg/dL at 01/08/2021 9:48 AM Serum Sodium: 141 mmol/L (Rounded to 137 mmol/L) at 01/08/2021 9:48 AM Total Bilirubin: 0.7 mg/dL (Rounded to 1 mg/dL) at 01/08/2021 9:48 AM INR(ratio): 1.3 at 01/08/2021 9:48 AM Age: 80 years 6 months Endoscopy: EGD 12/14/20 (Dr. Soto): Impression: ?- Small (< 5 mm) esophageal varices. ?- Normal stomach. ?- Normal examined duodenum. ?- No specimens collected. Recommendation: ?- Repeat upper endoscopy in 1 year ?for surveillance. Colonoscopy 12/14/20: Impression: ?- The entire examined colon is normal. ?- The examined portion of the ileum ?was normal. 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 ?- Internal hemorrhoids. ?- No specimens collected. Imaging: Ultrasound today: LIVER: ------ Right Lobe Length: 12.4 cm Echogenicity/Echotexture: Coarse parenchyma with capsular nodularity ?? GALLBLADDER: Cholelithiasis: Gallstone Wall Thickness: 2. mm Focal Tenderness: Negative sonographic Ortega's sign BILIARY TRACT: Intrahepatic Ducts: Normal Extrahepatic Ducts: Normal Common Duct Size: 2.0 mm ?? IMPRESSION ?? 1. Overall the hepatic contour is coarsened, in the setting of known liver disease. No focal lesion is identified currently. 2. Approaching the neck of the gallbladder, shadowing mobile 8mm finding strongly favoring gallstone. The patient is asymptomatic, negative sonographic Ortega sign, normal gallbladder wall, no pericholecystic fluid. No current sonographic evidence of acute cholecystitis. The common bile duct is normal. ASSESSMENT & PLAN: Marleny Martin is a 80 y.o. 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 He does have a history of regular alcohol use and some metabolic risks for fatty liver, and with elevated CAP score on FibroScan likely has some degree of steatohepatitis. He has very well compensated, Hvjlz-Howkczbz-Lttd class A cirrhosis. Today we discussed his lower abdominal discomfort and straining when having bowel movements. He wasfound to have internal hemorrhoids on colonoscopy which are likely the source of his previous hematochezia. He did not have any diverticulosis on colonoscopy so doubtful this is diverticulitis. Is that I feel like he is likely constipated and so I suggested starting with an vqwr-fwa-bthkhgl fiber supplement and if this is not helpful we could consider a daily mild stool softener. He continues to have low-grade anemia. This may be related to anemia of chronic disease however he was also noted to have rectal AVMs likely from his prior prostate cancer radiation. We could consider further work-up for other sources of GI bleeding with capsule endoscopy to be sure he does not have additional AVMs in the small bowel. I will discuss with my colleagues whether this is necessary. Iwas able to add iron studies to his labs today and he does have a low normal serum iron with low transferrin saturation indicating iron deficiency. He would benefit from iron supplementation, though would rather wait for his bowels to normalize before providing iron supplement which could constipate him further. I continue to wonder if perhaps we should check an DWAYNE level given his chronic restrictive lung disease, to see if sarcoidosis should be on the radar for etiology. I will discuss further with my hepatology colleagues about this. Attempted to add DWAYNE level today but this was unable to be performed. Plan: -Consider testing for sarcoidosis given his history of restrictive lung disease. Will discuss with liver team. -Repeat EGD in 1 year to follow-up varices. -May consider video capsule endoscopy for iron deficiency anemia versus iron supplementation. Will discuss with liver team. -Diet: Reviewed Mediterranean diet guidelines and also provided information on increasing fiber. -He should also obtain tfcv-ksz-umjsbru fiber supplement intake daily. -Strongly recommend consultation with local dietitian, which can be arranged by PCP. -He should continue to remain abstinent from all alcohol. -Recommend combined HAV/HBV vaccine series through PCP office. -Pneumococcal vaccine recommended every 5 years. Repeat influenza vaccine again next year. -Hepatology follow-up likely in 6 months with ultrasound and labs prior. Time spent reviewing records prior to this encounter: 8 minutes Time spent during encounter with patient including counselin minutes Time spent documenting encounter on date of service: 11 minutes Approximate total time devoted to this single encounter on date of service: 44 minutes NAEEM Mares-[facility] Section of Gastroenterology [place] [address] Cc: Edgar Marie MD @PCPADD@ documented in this encounter Plan of Treatment Not on file documented as of this encounter Visit Diagnoses Diagnosis Cryptogenic cirrhosis- Primary Cirrhosis of liver without mention of alcohol Portal hypertension Anemia, unspecified type Restrictive lung disease Other diseases of lung, not elsewhere classified documented in this encounter Care Teams Strategic Debriefing Specialist Relationship Specialty Start Date End Date Edgar Marie MD PCP - General Family Medicine 08/30/16 documented as of this encounter
--- OUTSIDE RECORDS SUMMARY | 2024-09-03 17:51 | XMS_ITS | Encounter Summary ---
Author Organization [facility] [place] [address] Care Team Providers Care Yard Crane Operator Name Role Phone Edgar Marie MD Primary Care Provider [phone] Encounter Details Date Type Department Care Team (Latest Contact Info) Description 11/27/2020 9:57 AM EST - 11/27/2020 11:59 PM EST Hospital [place] [id number] Screening for colon cancer Discharge Disposition: Home Social History Tobacco Use [...] encounter Visit Diagnoses Diagnosis Screening for colon cancer Special screening for malignant neoplasms, colon documented in this encounter Care Teams Yard Crane Operator Relationship Specialty Start Date End Date Edgar Marie MD PCP - General Family Medicine 08/30/16 documented as of this encounter
--- OUTSIDE RECORDS SUMMARY | 2024-09-03 17:51 | XMS_ITS | Encounter Summary ---
Author Organization [facility] Address [facility] [place] [address] Care Team Providers Care Shot Lighter Name Role Phone Edgar Marie MD Primary Care Provider [phone] Reason for Visit * Auth/Cert Specialty Diagnoses [...] Expiration Date Visits Re quested Visits Authorized [id number] 1 1 Encounter Details Date Type Department Care Team ([facility] st Contact Info) Description 12/27/2021 4:15 PM EST - 12/27/2021 5:15 PM EST [place] [address] Justin Santiago MD [facility] [place] [address] EGD, UPPER GI ENDOSCOPY (WRVU 2.09) Social History Tobacco Use Types Packs/Day Years [...] Sign Reading Time Taken Comments Blood Pressure 99/49 12/27/2021 5:15 PM EST Pulse 61 12/27/2021 3:36 PM EST Temperature 36.2 ??C (97.2 ??F) 12/27/2021 3:36 PM ES T Respiratory Rate 20 12/27/2021 5:15 PM EST Oxygen Saturation 100% 12/27/2021 5:15 PM EST Inhaled Oxygen Concentration - - Weight 77.1 kg (170 lb) 12/27/2021 3:36 PM EST Height - - Body Mass Index 28.74 01/08/2021 10:29 AM EST documented in this encounter Discharge Instructions * Discharge Instructions* Jarrod Inman RN - 12/27/2021 5:23 PM EST Upper [...] the day after the test, use an hdme-iki-bukuxrg spray or lozenges to numbyour throat. Warm [...] occurs, please contact your doctor. Please call [phone] before 8pm Mon-Fri with problems, questions, or concerns. If you call after 8pm or on weekends, call the Hospital at [phone] and ask for the Sand Sifter contractor general building and the upsetting machine operator will contact that person for you. When should you call for help? Call [phone] anytime you think you may need emergency [...] more? You can view health information on [employer] software, your personal patient account. Log in or sign up today. Content Version: 12.2 ?? 5932-2941 [employer]. Care instructions adapted under license by [facility]. If you have questions about a medical condition or this instruction, always ask your healthcare professional. [employer] disclaims any warranty or liability for your [...] complication. Informed Consent signed by patient (or marketing development representative). documented in this encounter Plan of [...] (12/27/2021 4:34 PM EST) UPPER GI ENDOSCOPY [facility] ___ Procedure Date: 12/27/2021 4:34 PM ? Patient Name: Marleny Martin ? N: [id number] ? Date of : 1940 ? Age: 81 ? Order #: [id number] ? Instrument Name: [id number] ? ___ Procedure: ? Upper GI endoscopy Indications: ? Follow-up of esophageal varices Patient Profile: ? This is a 81 year old male. Providers: ? Justin Santiago MD, Isabella Martinez ? Blake Mcdowell, Registered Dental Hygienist Referring : ?Edgar Marie Requesting Provider: Miguel Hinds Medicines: [...] * COLONOSCOPY (12/27/2021 4:34 PM EST) COLONOSCOPY [facility] Endoscopy Procedure Date: 12/27/2021 4:34 PM ? Patient Name: Marleny Martin ? Date of : 1940 ? Age: 81 ? Order #: [id number] ? Instrument Name: [id number] ? Procedure: ? Colonoscopy Indications: ? Rectal bleeding Providers: ? Justin Santiago MD, Isabella Martinez ? Blake Mcdowell, Registered Dental Hygienist Referring MD: ?Edgar Marie Medicines: ? Monitored [...] RN) documented in this encounter Care Teams Shot Lighter Relationship Specialty Start Date End Date Edgar Marie MD PCP - General Family Medicine 08/30/16 documented as of this encounter
--- OUTSIDE RECORDS SUMMARY | 2024-09-03 17:51 | XMS_ITS | Encounter Summary ---
Author Organization [facility] Address [facility] [place] [address] Care Team Providers Care Assistant Store Manager Operations Name Role Phone Edgar Marie MD Primary Care Provider [phone] Reason for Visit * Auth/Cert Specialty Diagnoses / Procedures Referred By Contargentina t Referred To Contact Diagnoses Varices, esophageal [...] Expiration Date Visits Re quested Visits Authorized [id number] 1 1 Encounter Details Date Type Department Care Team (Late st Contact Info) Description 12/14/2020 2:45 PM EST - 12/14/2020 3:45 PM EST Surgery [place] [address] Dia Soto MD [facility] [place] [address] EGD, UPPER GI ENDOSCOPY (WRVU 2.09) Social [...] encounter Discharge Instructions * Discharge Instructions* Corbin Somers RN - 12/14/2020 3:19 PM EST Upper [...] the day after the procedure, use an ubwa-unq-dxdiclx spray to numb your throat. Sucking on [...] occurs, please contact your Doctor. Please call [phone] before 8pm Mon-Fri with problems, questions or concerns. If you call after 8pm or on weekends, call the Hospital at [phone] and ask to speak to the Student Activities Director chuck wagon driver and the shotgun shell loading machine operator will contact that person for you. When should you call for help? Call [phone] anytime you think you may need emergency [...] any problems. Where can you learn more? [facility] View your After Visit Summary and more online at [email or web address] If you would like to provide feedback about your hospital experience, please call the Office of Patient and Family Relations at . If you have received this After Visit Summary in error, please immediately return it in person to the department, or notify the [facility] Privacy Office by calling toll free at between the hours of 8AM and 5PM to arrange for our retrieval of the documents at no cost to you. Content Version: 12.2 ?? 0744-8243 [employer]. Care instructions adapted under license by [facility]. If you have questions about a medical condition or this instruction, always ask your healthcare professional. [employer] disclaims any warranty or liability for your [...] occurs, please contact your Doctor. Please call [phone] before 8pm Mon-Fri with problems, questions or concerns. If you call after 8pm or on weekends, call the Hospital at [phone] and ask to speak to the Student Activities Director chuck wagon driver and the shotgun shell loading machine operator will contact that person for you. When should you call for help? Call [phone] anytime you think you may need emergency [...] any problems. Where can you learn more? [facility] View your After Visit Summary and more online at [email or web address] If you would like to provide feedback about your hospital experience, please call the Office of Patient and Family Relations at . If you have received this After Visit Summary in error, please immediately return it in person to the department, or notify the [facility] Privacy Office by calling toll free at between the hours of 8AM and 5PM to arrange for our retrieval of the documents at no cost to you. Content Version: 12.2 ?? 8723-8550 [employer]. Care instructions adapted under license by [facility]. If you have questions about a medical condition or this instruction, always ask your healthcare professional. [employer] disclaims any warranty or liability for your [...] Routine 12/14/2020 2:53 PM EST Colonoscopy, Diagnostic ([id number]) 12/14/2020 2:40 PM EST follow up varices, CRC screening Upper GI Endoscopy, Diagnostic ([id number]) 12/14/2020 2:40 PM EST follow up varices, CRC screening UPPER GI ENDOSCOPY Routine 12/14/2020 2: 25 PM EST documented in this encounter Results * COLONOSCOPY (12/14/2020 2:53 PM EST) COLONOSCOPY [facility] Endoscopy Procedure Date: 12/14/2020 2:53 PM ? Patient Name: Marleny Martin ? Date of : 1940 ? Age: 80 ? Order #: [id number] ? Instrument Name: [id number] ? Procedure: ? Colonoscopy Indications: ? Screening [...] (12/14/2020 2:25 PM EST) UPPER GI ENDOSCOPY [facility] Endoscopy Procedure Date: 12/14/2020 2:25 PM ? Patient Name: Marleny Martin ? N: [id number] ? Date of : 1940 ? Age: 80 ? Order #: [id number] ? Instrument Name: [id number] ? Procedure: ? Upper GI endoscopy Indications: ? Follow-up of esophageal varices Providers: ? Dia Soto MD, Michelle Tejeda, ? Candace Martinez RN Referring : ?Edgar Marie Medicines: ? See the Anesthesia [...] RN) documented in this encounter Care Teams Assistant Store Manager Operations Relationship Specialty Start Date End Date Edgar Marie MD PCP - General Family Medicine 08/30/16 documented as of this encounter
--- OUTSIDE RECORDS SUMMARY | 2024-09-03 17:51 | XMS_ITS | Encounter Summary ---
Author Organization [facility] [place] [address] Care Team Providers Care Charging Board Operator Name Role Phone Edgar Marie MD Primary Care Provider [phone] Encounter Details Date Type Department Care Team (Late st Contact Info) Description 04/28/2023 11:00 AM EDT Office [place] [id number] Miguel Hinds PA [address] [place] [address] [place] [address] Cryptogenic cirrhosis (Primary Dx); Radiation proctitis; Anemia due to chronic blood loss Social [...] Sign Reading Time Taken Comments Blood Pressure 174/55 04/28/2023 10:54 AM EDT Pulse 53 04/28/2023 10:54 AM EDT Temperature - - Respiratory Rate - - Oxygen Saturation 97% 04/28/2023 10:54 AM EDT Inhaled Oxygen Concentration - - Weight 79 kg (174 lb 1.6 oz) 04/28/2023 10:54 AM EDT Height 165.1 cm (5' 5) 04/28/2023 10:54 AM EDT Body Mass Index 28.97 04/28/2023 10:54 AM EDT documented in this encounter Progress Notes * Miguel Hinds PA - 04/28/2023 11:00 AM EDT Gastroenterology and Hepatology Follow Up Note Patient: Viond Dixon Sex: male : 1940 Provider: Miguel [...] -EGD 12/14/20: small EV, repeat 1 year -[place] 12/15/20: no polyps, 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 Vinod Dixon is 82 y.o. with a history of cirrhosis with portal hypertension. We last met in December earlier this year and he returns today following ultrasound and labs prior to his visit. He states that last month he saw his urologist and had a cystoscopy which was supposedly clear. He has another appointment in 2 months. He has not had any recurrence of blood in his urine that he discussed previously and his lower abdominal pain has resolved. He believes there may have been benign tumors found in his bladder last year. He denies any rectal bleeding at all or dark/coffee-ground stools. He overall has similar energy level to his baseline. He does have some unbalanced walking at times. He notices some shortness of breath with walking longer distance lately. He states that he recently pulled out his toenail after getting a run over and was on an antibioticbut is now off. He recently started on another blood pressure medication, chlorthalidone. MEDICATIONS: Current Outpatient Medications Medication Sig Dispense [...] visit. ALLERGIES/ADR Allergies Allergen Reactions Dwayne Inhibitors PHYSICAL EXAMINATION: Vitals: 04/28/23 1054 BP: 174/55 BP Location ([facility]): Right arm Patient Position: Sitting BP Cuff Sizes: Adult (25-34 cm) Pulse: 53 SpO2: 97% Weight: 79 kg (174 lb 1.6 oz) Height: 165.1 cm (5' 5) Body mass index is 28.97 kg/m??. Constitutional: Well appearing elderly man, appropriate, [...] Prothrombin Time Result Value Ref Range PT 16.1 (H) 9.4 - 12.5 sec INR 1.4 Comprehensive metabolic panel (non-fasting) Result Value Ref Range Glucose Lvl 112 65 - 199 mg/dL BUN 16 10 - 20 mg/dL Creatinine 1.48 0.80 - 1.50 mg/dL Sodium 140 135 - 145 mmol/L Potassium 4.3 3.5 - 5.0 mmol/L Chloride 107 98 - 107 mmol/L CO2 24 22 - 31 mmol/L Anion Gap 9 5 - 15 mmol/L Calcium 8.7 8.5 - 10.5 mg/dL Total Protein 8.1 (H) 6.1 - 8.0 g/dL Albumin 3.1 (L) 3.2 - 5.2 g/dL AST 23 0 - 39 unit/L ALT 12 0 - 55 unit/L Alk Phos 143 (H) 40 - 130 unit/L Total Bilirubin 1.3 0.2 - 1.3 mg/dL Estimated GFR 48 (L) >=60 mL/min/1.73 m?? Hemogram Result Value Ref Range WBC 3.2 (L) 4.0 - 9.5 x10(3)/mcL RBC 3.15 (L) 4.58 - 5.54 x10(6)/mcL Hemoglobin 8.5 (L) 13.7 - 16.5 g/dL Hematocrit 26.5 (L) 40.5 - 48.5 % MCV 84.1 82.9 - 93.1 fL MCH 27.0 (L) 27.5 - 32.1 pg MCHC 32.1 32.0 - 35.7 g/dL Platelets 61 (L) 145 - 357 x10(3)/mcL RDWSD 46.3 (H) 36.0 - 45.0 fL RDWCV 15.2 (H) 11.4 - 13.8 % MPV 12.9 7.6 - 12.9 fL nRBC % Auto 0.0 % nRBC Abs Auto 0.000 0.000 - 0.000 x10(3)/mcL Differential, Automated Result Value Ref Range Neutrophils % 68.0 % Neutr Abs (ANC) 2.16 1.70 - 6.10 x10(3)/mcL Lymphocytes % 18.9 % Lymphocytes Abs 0.6 (L) 0.9 - 3.2 x10(3)/mcL Monocytes % 7.2 % Monocyte Abs 0.2 (L) 0.3 - 0.9 x10(3)/mcL Eosinophils % 5.0 % Eosinophils Abs 0.2 0.0 - 0.4 x10(3)/mcL Basophils % 0.6 % Basophils Abs 0.0 0.0 - 0.1 x10(3)/mcL Immature Gran % 0.30 % Sadie Gran Abs 0.01 0.00 - 0.04 x10(3)/mcL Iron and TIBC Result Value Ref Range Iron 120 45 - 160 mcg/dL TIBC 319 250 - 450 mcg/dL Iron Saturation 38 20 - 50 % MELD 3.0: 15 at 04/28/2023 9:39 AM [...] years Sex: Male at 04/28/2023 9:39 AM Lab Results Component Value Date AFP 3.4 11/08/2022 Endoscopy: EGD 12/27/21 (Dr. Santiago): Impression: - [...] repeat colonoscopy due to age. Imaging: Ultrasound today: LIVER: ------ Right Lobe Length: 11.8 cm [...] 3. Splenomegaly. 4. No evidence of ascites ASSESSMENT & PLAN: Vinod Dixon is a 82 y.o. 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 He does have a history of regular alcohol use and some metabolic risks for fatty liver, and with elevated CAP score on FibroScan likely has some degree of steatohepatitis. He has very well compensated, Zxyil-Qzsnzkss-Cevz class A cirrhosis. 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 He has chronic anemia that is likely multifactorial due to the radiation proctitis in addition to CKD. He overall appears to be fairly stable from a liver perspective. Hemoglobin was noticeably less than his usual baseline, however without any obvious recent GI bleeding and stable energy level, as well as adding on iron studies to his labs today showing normal concentration, saturation, and TIBC (ferritin unable to be added on), I do wonder if some of this might be from his CKD. For now, I would defer any further work-up for this to his primary care office. I did discuss with my colleagues aboutwhether we should consider repeat endoscopy, and it is felt that this likely would not be beneficial given the lack of symptoms. If he does certainly develop recurrence of lower GI bleeding, would then recommend a flexible sigmoidoscopy with APC for AVMs if present. The patient would also like to avoid any invasive procedures if possible. He appears to be tolerating propranolol well along with his other antihypertensives, and heart rateis at goal for primary bleeding prophylaxis for varices. Plan: -No further endoscopic evaluation needed. Patient will call [facility] if he has recurrence of GI bleeding. -Continue propranolol 80 mg. Goal HR 50-60 bpm. No further EGD needed for varices surveillance. -Follow-up with primary care as needed/planned. Follow-up with local urologist. -Diet: Reviewed Mediterranean diet guidelines and also provided information on increasing fiber. -He should continue to remain abstinent from all alcohol. -Hepatology follow-up in 6 months with labs and ultrasound prior, with [facility]. Time spent reviewing records prior to this encounter: 5 minutes Time spent during encounter with patient including counselin minutes Time spent documenting encounter on date of service: 8 minutes Approximate total time devoted to this single encounter on date of service: 37 minutes NAEEM Mares-C Section of Gastroenterology [place] [address] Cc: Edgar Marie MD @PCPADD@ documented in this encounter Plan of Treatment Not on file documented as of this encounter Results * Ferritin (10/28/2023 9:34 AM EST) Ferritin 80 31 - 409 ng/mL [facility] Comment: Please note that as of 10/22/2023, the reference intervals for Ferritin have been updated. Blood 10/28/2023 9:34 AM EST 10/28/2023 9:56 AM EST Narrative Resulting Agency Comment Spec In Lab Dia Rico MD CHEMISTRY ORDERABLES Performing Organization Address City/[facility]/ZIP Co de Phone Number [facility] [place] [address] * (ABNORMAL) Iron and TIBC (10/28/2023 9:34 AM EST) Iron 88 45 - 160 mcg/dL [facility] TIBC 233(L) 250 - 450 mcg/dL [facility] Iron Saturation 38 20 - 50 % [facility] Blood 10/28/2023 9:34 AM EST 10/28/2023 9:56 AM EST Narrative Resulting Agency Comment Spec In Lab Dia Rico MD CHEMISTRY ORDERABLES Performing Organization Address City/[facility]/ZIP Co de Phone Number [facility] [place] [address] * AFP tumor marker (10/28/2023 9:34 AM EST) Alpha Fetoprotein 2.7 <=8.3 ng/mL [facility] Comment: This result was generated using a Kiah Mikaela immunoassay. ??Results obtained from other methods or manufacturers cannot be used interchangeably with this method. Blood 10/28/2023 9:34 AM EST 10/28/2023 9:56 AM EST Narrative Resulting Agency Comment Spec In Lab Dia Rico MD CHEMISTRY ORDERABLES Performing Organization Address [facility] de Phone Number [facility] [place] [address] * (ABNORMAL) Prothrombin Time (10/28/2023 9:34 AM EST) Prothrombin Time 15.3(H) 9.4 - 12.5 sec [facility] International Normalization Ratio 1.4 [facility] Comment: An INR <2.0 indicates adequate [...] MD HEMATOLOGY ORDERABLE S Performing Organization Address [facility] Co de Phone Number [facility] [place] [address] * (ABNORMAL) Comprehensive metabolic panel (non-fasting) (10/28/2023 9:34 AM EST) Glucose 119 65 - 199 mg/dL [facility] Comment:Diabetes: >=200 mg/d L plus symptoms Blood Urea Nitrogen 21(H) 10 - 20 mg/dL [facility] Creatinine 1.25 0.80 - 1.50 mg/dL [facility] Sodium 142 135 - 145 mmol/L [facility] Potassium 4.6 3.5 - 5.0 mmol/L [facility] Comment: Please note: ??Patients with WBC >100,000 may have falsely elevated Potassium levels. ??For accurate Potassium quantification in these patients send serum separator tube (gold top) for subsequent determinations. ??Contact the Clinical Chemistry Laboratory if there are any questions. Chloride 112(H) 98 - 107 mmol/L [facility] Carbon Dioxide 22 22 - 31 mmol/L [facility] Anion Gap 8 5 - 15 mmol/L [facility] Calcium 8.7 8.5 - 10.5 mg/dL [facility] Protein, Total 7.0 6.1 - 8.0 g/dL [facility] Albumin 2.9(L) 3.2 - 5.2 g/dL [facility] Aspartate Aminotransferase 30 0 - 39 unit/L [facility] Alanine Aminotransferase 21 0 - 55 unit/L [facility] Alkaline Phosphatase 209(H) 40 - 130 unit/L [facility] Bilirubin, Total 1.0 0.2 - 1.3 mg/dL [facility] Est Glomerular Filtration Rate 58(L) >=60 mL/min/1. 73 m?? [facility] Comment: This patient's estimated GFR was [...] In Lab Dia Rico MD CHEMISTRY ORDERABLES [facility] [place] [address] * US Abdomen Limited Hepatology Protocol (10/28/2023 9:07 AM EST) Anatomical Region Laterality Modality Abdomen Ultrasound 10/28/2023 8:48 AM EST Impressions 10/28/2023 9:17 AM EST 1. ??Coarse liver parenchyma with capsular nodularity, consistent with known cirrhosis. No sonographically evident hepatic mass. 2. ??No intra-abdominal ascites. 3. ??Cholelithiasis redemonstrated without evidence of acute cholecystitis or biliary ductal dilatation. Thank you for letting us participate in the care of this patient. If you are a health care provider and have any questions regarding this report, please contact the number above. For patients who have questions, please contact the health critical care unit nurse that requested your imaging first. ? Shayla Alcala, [facility] Digital Media Associate Electronically Signed Final Report ?? 10/28/2023 09:17 am Narrative 10/28/2023 9:17 AM EST Abdominal ? (Signed Final 10/28/2023 09:17 am) PATIENT INFO: ID #: ? [id number] ?: ??[birth year] (83 yrs)(M) Name: ? VINOD DIXON ? Visit Date: 10/28/2023 08:48 am PERFORMED BY: Attending: ?Cari BERG, Shayla Reyes Performed By: ? Court Huerta RDMS Referred By: ?DIA RICO Location: ? [place] SERVICE(S) PROVIDED: [id number] - Hepatology Protocol - Abdominal ?06074 Limited Survey Single Organ or Quadrant - [id number] INDICATIONS: Cirrhosis, screen for HCC COMPARISON: US [...] 10/28/2023 09:17 am) PATIENT INFO: ID #: [id number] : [birth year] (83 yrs)(M) Name: VINOD DIXON Visit Date: 10/28/2023 08:48 am PERFORMED BY: Attending: Shayla Alcala MD Performed By: Court Huerta RDMS Referred By: DIA RICO Location: [place] SERVICE(S) [facility] - Hepatology Protocol - Abdominal 33830 Limited Survey Single Organ or Quadrant - [id number] INDICATIONS: Cirrhosis, screen for HCC COMPARISON: US [...] of acute cholecystitis or biliary ductal dilatation. Thank you for letting us participate in the care of this patient. If you are a health care provider and have any questions regarding this report, please contact the number above. For patients who have questions, please contact the health critical care unit nurse that requested your imaging first. 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
--- OUTSIDE RECORDS SUMMARY | 2024-09-03 17:51 | XMS_ITS | Encounter Summary ---
[place] [address] Care Team Providers Care Medical Data Analyst Name Role Phone Edgar Marie MD Primary Care Provider [phone] Reason for Referral * Diagnostic Test (Routine) - Closed Specialty Diagnoses / Procedures Referred By Contac t Referred To Contact Cardiology Diagnoses Dyspnea, unspecified type Edema, unspecified type Procedures Mobile Sarath Dominguez MD [facility] [place] [address] [facility] [place] [address] Referral ID Status Reason Start Date Expiration Date V isits Requested Visits Authorized [id number] Closed Specialty Service Requested 10/10/2023 10/09/2024 1 1 Reason for Visit * Diagnostic Test (Routine) - Closed Specialty Diagnoses / Procedures Referred By Contac t Referred To Contact Cardiology Diagnoses Dyspnea, unspecified type Edema, unspecified type Procedures Mobile Sarath Dominguez MD [address] [place] [address] [facility] [place] [address] Referral ID Status Reason Start Date Expiration Date V isits Requested Visits Authorized [id number] Closed Specialty Service Requested 10/10/2023 10/09/2024 1 1 Encounter Details Date Type Department Care Team (Late st Contact Info) Description 10/10/2023 12:04 PM EST - 10/10/2023 11:59 PM EST Hospital Encounter Mobile Echocardiography [facility] [place] [address] Sarath Calles MD [facility] [place] [address] Dyspnea, unspecified type; Edema, unspecified type Discharge Disposition: Home Social History Tobacco [...] Procedure Name Priority Date/Time Associated Diagnosis Comments ECHO COMPLETE Routine 10/10/2023 12:22 PM EST Dyspnea, unspecified type Edema, unspecified type documented in this encounter Results * ECHO COMPLETE (10/10/2023 12:22 PM EST) Anatomical Region Laterality Modality Other 10/10/2023 10:0 1 AM EST Narrative 10/10/2023 12:46 PM EST 1 [place] [address] ? Echocardiogram Report Name: ARUNMARLENY ? Study Date: 10/10/2023 10:01 AMBP: 119/64 mmHg ? Patient Location: 4A : 1940 ? Height: 163 cm ? Account: [id number] Age: 83 yrs ? Weight: 75 kg Gender: Male ?BSA: 1.8 m2 Ordering Physician: SARATH CALLES Referring Physician: SARATH CALLES Performed By: RHONA Reason For Study: Dyspnea; edema; prostate CA; Bladder CA;; cirrhosis Exam Location: [facility]. Interpretation Summary Normal left ventricle size and systolic function. LV ejection fraction 58%. Normal wall motion. Normal right ventricle. Aortic sclerosis without significant stenosis. No pericardial effusion. No prior studies available for direct comparison. Procedure Complete-[id number]. Left Ventricle Left ventricle is of normal size. Wall thickness is normal. There is no ventricular septal defect. Left ventricular systolic function is normal. LVEF is 58%. Global longitudinal strain is measured at -16.2 %. (GE). There are no segmental wall motion abnormalities. Right Ventricle The right ventricle is of normal size. Right ventricular systolic function is normal. Left Atrium The left atrium is normal. There is no evidence for a patent foramen ovale. Right Atrium The right atrium is normal. Aortic Valve The aortic valve is tricuspid. The aortic valve is mildly thickened. The aortic valve is mildly calcified. There is aortic valve sclerosis without stenosis. There is no aortic stenosis. There is no aortic regurgitation. Mitral Valve The mitral valve is structurally normal. There is no mitral stenosis. There is trace mitral regurgitation. Tricuspid Valve The tricuspid valve is structurally normal. There is no tricuspid stenosis. There is trace tricuspid regurgitation. Pulmonic Valve The pulmonic valve appears to be structurally normal. There is no valvular pulmonic stenosis. There is trace pulmonic valve regurgitation. Great Arteries The aortic root is of normal size. No abnormalities are identified. Ascending aorta is normal in size. Venous Inferior vena cava is normal in size. Inferior vena cava collapse greater than 50% with respiration. Pericardium/Pleural The pericardium appears normal. Hemodynamics Pulmonary artery hypertension could not be assessed due to inadequate tricuspid regurgitation jet. ? 2D Measurements ? Volumes ?IVSd: 0.88 cm ?LA Volume Index: ?LVIDd: 4.3 cm ?LVIDs: 3.0 cm ?21.4 ml/m2 ?LVPWd: 0.92 cm ? SV(LVOT): 87.9 ml ? LV Stroke Volume: 87.8 ml ?LV mass(C)d: 122.6 grams ? SI(LVOT): 48.6 ml/m2 ?LV mass(C)dI: 67.9 grams/m2 ?Ao root diam: 2.9 cm ?Ao root diam index: 1.6 ?asc Aorta Diam: 2.5 cm ?LVOT diam: 1.9 cm ?TAPSE_phl: 2.8 cm Doppler ?3D/Strain/TomTec LV V1 VTI: 31.7 cm ?LV GLS (S3P): -16.2 % LVOT max Velocity: 143.4 cm/sec Ao V2 VTI: 37.6 cm Ao Max: 189.5 cm/sec Ao valve max: 14.4 mmHg Ao valve mean: 6.7 mmHg MV E max rod: 81.7 cm/sec MV A max rod: 100.5 cm/sec MV E/A: 0.81 MV dec time: 0.29 sec MV mean P.3 mmHg Lat Peak E' Rod: 8.2 cm/sec E/ e' (lat): 10.0 Med Peak E' Rod: 7.3 cm/sec E/e' (med): 11.2 E/e' Average: 10.6 CHELO(I,D): 2.3 cm2 Dimensionless index Aov: 0.84 I ?WMSI = 1.00 ? % Normal = 100 ?Segments ??Size X - Cannot ?2 - ?4 - ?1-2 ? small Interpret ?1 - Normal ?? Hypokinetic 3 - Akinetic Dyskinetic ?? 3-5 ? moderate 5 - ? 6-14 ?large Aneurysmal ?15-16 ?? diffuse Procedure Note Kings Adrian MD - 10/10/2023 1 [place] [address] Echocardiogram Report Name: MARLENY DIXON Study Date:10/10/2023 10:01 AMBP: 119/64 mmHg Patient Location:4A : 1940 Height: 163 cm Account: [id number] Age: 83 yrs Weight: 75 kg Gender: Male BSA: 1.8 m2 Ordering Physician: SARATH CALLES Referring Physician: SARATH CALLES Performed By: RHONA Reason For Study: Dyspnea; edema; prostate CA; Bladder CA;; cirrhosis Exam Location: [facility]. Interpretation Summary Normal left ventricle size and systolic function. LV ejection ejqvlcmr42%. Normal wall motion. Normal right ventricle. Aortic sclerosis without significant stenosis. No pericardial effusion. No prior studies available for direct comparison. Procedure Complete-[id number]. Left Ventricle Left ventricle is of normal size. Wall thickness is normal. There is no ventricular septal defect. Left ventricular systolic function is normal.LVEF is 58%. Global longitudinal strain is measured at -16.2 %. (GE). There areno segmental wall motion abnormalities. Right Ventricle The right ventricle is of normal size. Right ventricular systolic functionis normal. Left Atrium The left atrium is normal. There is no evidence for a patent foramenovale. Right Atrium The right atrium is normal. Aortic Valve The aortic valve is tricuspid. The aortic valve is mildly thickened. Theaortic valve is mildly calcified. There is aortic valve sclerosis withoutstenosis. There is no aortic stenosis. There is no aortic regurgitation. Mitral Valve The mitral valve is structurally normal. There is no mitral stenosis.There is trace mitral regurgitation. Tricuspid Valve The tricuspid valve is structurally normal. There is no tricuspidstenosis. There is trace tricuspid regurgitation. Pulmonic Valve The pulmonic valve appears to be structurally normal. There is novalvular pulmonic stenosis. There is trace pulmonic valve regurgitation. Great Arteries The aortic root is of normal size. No abnormalities are identified.Ascending aorta is normal in size. Venous Inferior vena cava is normal in size. Inferior vena cava collapse greaterthan 50% with respiration. Pericardium/Pleural The pericardium appears normal. Hemodynamics Pulmonary artery hypertension could not be assessed due to inadequatetricuspid regurgitation jet. 2D Measurements Volumes IVSd: 0.88 cm LA VolumeIndex: LVIDd: 4.3 cm LVIDs: 3.0 cm 21.4 ml/m2 LVPWd: 0.92 cm SV(LVOT): 87.9ml LV Stroke Volume:87.8 ml LV mass(C)d: 122.6 grams SI(LVOT): 48.6ml/m2 LV mass(C)dI: 67.9 grams/m2 Ao root diam: 2.9 cm Ao root diam index: 1.6 asc Aorta Diam: 2.5 cm LVOT diam: 1.9 cm TAPSE_phl: 2.8 cm Doppler 3D/Strain/TomTec LV V1 VTI: 31.7 cm LV GLS (S3P): -16.2 % LVOT max Velocity: 143.4 cm/sec Ao V2 VTI: 37.6 cm Ao Max: 189.5 cm/sec Ao valve max: 14.4 mmHg Ao valve mean: 6.7 mmHg MV E max rod: 81.7 cm/sec MV A max rod: 100.5 cm/sec MV E/A: 0.81 MV dec time: 0.29 sec MV mean P.3 mmHg Lat Peak E' Rod: 8.2 cm/sec E/ e' (lat): 10.0 Med Peak E' Rod: 7.3 cm/sec E/e' (med): 11.2 E/e' Average: 10.6 CHELO(I,D): 2.3 cm2 Dimensionless index Aov: 0.84 I WMSI = 1.00 % Normal = 100 SegmentsSize X - Cannot 2 - 4 - 1-2small Interpret 1 - Normal Hypokinetic 3 - Akinetic Dyskinetic 3-5moderate 5 - 6-14large Aneurysmal 15-16diffuse Sarath Calles MD ECHO ORDERAB LES documented in this encounter Visit Diagnoses Diagnosis Dyspnea, unspecified type Edema, unspecified type documented in this encounter Care Teams Medical Data Analyst Relationship Specialty Start Date End Date Edgar Marie MD PCP - General Family Medicine 08/30/16 documented as of this encounter
--- OUTSIDE RECORDS SUMMARY | 2024-09-03 17:51 | XMS_ITS | Encounter Summary ---
Author Organization [facility] [place] [address] Care Team Providers Care Education Professional Name Role Phone Edgar Marie MD Primary Care Provider [phone] Encounter Details Date Type Department Care Team (Latest Contact Info) Description 10/28/2023 Travel Social History Tobacco Use Types Packs/Day [...] on filedocumented in this encounter Care Teams Education Professional Relationship Specialty Start Date End Date Edgar Marie MD PCP - General Family Medicine 08/30/16 documented as of this encounter
--- NOTE | 2024-09-03 17:52 | DI.RAD_ITS ---
Exam(s) XR CHEST 2V PA LATERAL EXAM: XR CHEST 2V PA LATERAL CLINICAL HISTORY: fatigue, fall. TECHNIQUE: 2D digital imaging was performed. COMPARISON: CT CT CHEST PE CTA from 09/28/2023 CR XR CHEST 2V PA LATERAL from 01/08/2024 FINDINGS: 2 views: Heart size is upper normal. The mediastinum is not widened. There are stable appearing increased interstitial markings throughout both lung viera, not associate d with pleural effusions. There are healed bilateral rib fractures. Increased density noted in the lateral right lung which ma y just be related to overlapping bones with callus from healed right 5th rib fracture and anterolater al aspect of the right 4th rib. Other possibly is at there is a pleural based infiltrate or lesion a t this level in the right upper lobe. IMPRESSION: As above. If clinically indicated lateral right lung findings can be further study with CT scan. DATA REPOSITORY: RADIATION DOSE DELIVERED:
--- OUTSIDE RECORDS SUMMARY | 2024-09-03 17:52 | XMS_ITS | Encounter Summary ---
Author Organization [facility] [place] [address] Care Team Providers Care Banquet Cook Name Role Phone Abeba Altman [employer]DER Primary Care Provider + Reason for Visit * Reason Onset Date Comments Labs Only 09/02/2011 PSA RESULTS Encounter Details Date Type Department Care Team (Late st Contact Info) Description 09/02/2011 Telephone Radiation Oncology at [address] [phone] Juli Silva APRN [address] [place] [address] [place] [address] Labs Only (PSA RESULTS) Social History Tobacco Use Types Packs/Day Years Used Date Smoking Tobacco: Never Alcohol Use Standard Drinks/Week Comments No 0 (1 standard drink = 0.6 oz pur e alcohol) Sex and Gender Information Value Date Recorded Sex Assigned at Not on file Gender Identity Not on file Sexual Orientation Not on file documented as of this encounter Miscellaneous Notes * Telephone Encounter - Juli Silva APRN - 09/02/2011 9:21 AM EDT Call back amde to Mr Martin to report on the PSA and testosterone results from 08/29. Juli silva APRN * Telephone Encounter - Gloria Gardner - 09/02/2011 9:10 AM EDT Juli, Pt called and asked if he could get his results for his PSA that he had done on 08/29/11. I have contacted [facility] to send the results to us. Please call pt when they are in. Thanks, Gloria documented in this encounter Plan of Treatment Not on file documented as of this encounter Visit Diagnoses Not on filedocumented in this encounter Care Teams Banquet Cook Relationship Specialty Start Date End Date Abeba Altman, ASHLY PCP - General 10/09/10 08/29/16 documented as of this encounter
--- OUTSIDE RECORDS SUMMARY | 2024-09-03 17:52 | XMS_ITS | Encounter Summary ---
Author Organization [facility], [facility] [place] [address] Care Team Providers Care Music Grapher Name Role Phone Edgar Marie MD Primary Care Provider [phone] Encounter Details Date Type Department Care Team (Late st Contact Info) Description 06/28/2020 Telephone [place] [phone] [facility] Monaco[facility] Social History Tobacco Use Types Packs/Day Years [...] encounter Miscellaneous Notes * Telephone Encounter - Marilee Monaco - 06/28/2020 11:56 AM EDT Closing referral until we hear back unable to make contact with the pt. documented in this encounter Plan of Treatment Not on file documented as of this encounter Visit Diagnoses Not on filedocumented in this encounter Care Teams Music Grapher Relationship Specialty Start Date End Date Edgar Marie MD PCP - General Family Medicine 08/30/16 documented as of this encounter
--- OUTSIDE RECORDS SUMMARY | 2024-09-03 17:52 | XMS_ITS | Encounter Summary ---
Author Organization [facility] [place] [address] Care Team Providers Care Telephone Repairer Name Role Phone Edgar Marie MD Primary Care Provider [phone] Reason for Referral * Surgical (Routine) - Closed Specialty Diagnoses / Procedures Referred By Contac t Referred To Contact Gastroenterology Diagnoses Cirrhosis of liver without ascites, unspecified hepatic cirrhosis type Portal hypertension Screening for colon cancer Procedures EGD and Colonoscopy in November 2020 (with anesthesia) Miguel Hinds PA [address] [place] [address] [facility] [address] [place] [address] Referral ID Status Reason Start Date Expiration Date V isits Requested Visits Authorized [id number] Closed Consult, Test & Treat 10/09/2020 10/09/2021 1 1 Encounter Details Date Type Department Care Team (Late st Contact Info) Description 10/09/2020 11:30 AM EST Office [place] [address] Miguel Hinds PA [address] [place] [address] Cirrhosis of liver without ascites, unspecified hepatic cirrhosis type (Primary Dx); Portal hypertension; Screening for colon cancer Social History Tobacco Use Types Packs/Day Years [...] Sign Reading Time Taken Comments Blood Pressure 150/60 10/09/2020 11:40 AM EST Pulse 85 10/09/2020 11:40 AM EST Temperature - - Respiratory Rate - - Oxygen Saturation - - Inhaled Oxygen Concentration - - Weight 79.3 kg (174 lb 12.8 oz) 020 11:40 AM EST Height 163.8 cm (5' 4.5) 10/09/2020 11 :40 AM EST Body Mass Index 29.54 10/09/2020 11:40 AM EST documented in this encounter Progress Notes * Miguel Hinds PA - 10/09/2020 11:30 AM EST Gastroenterology and Hepatology Follow Up [...] show AST/ALT up to 50-70 range in 2016 -Per PCP notes, also history of splenomegaly [...] from prior banding sites, repeat 3 months -Imaging: US 07/13/20 with no liver lesions, nodular cirrhotic liver, no ascites, mild splenomegaly,normal biliary tree -Last AFP = 3.0 on 05/29/20 -Last MELD-Na = 12 on 05/29/20 [facility] -Likely hemorrhoidal -Normal colonoscopy 2010 per [...] ??? Hypertension I10 ??? 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 Marleny Dixon is 80 y.o. with a history of cirrhosis with portal hypertension. We last met in liver clinic on 07/13/20. He since underwent EGD on 08/08/20 with band ligation of large esophageal varices, and follow-up EGD on 09/06/20 showing resolution of varices. He tolerated the above procedures quite well. He received a letter stating that he had to reschedule another, but he is unsure exactly why. He has had no new health problems since our last visit. He states he got his flu shot at his PCP office, and apparently there is a plan to get hepatitis a and B vaccines as well. He has questions about what beverages are best for him to drink. He also admits that he has a weakness for ice cream. Drinks regular Coke and regular, full fat ice cream. MEDICATIONS: Current Outpatient Medications Medication Sig Dispense Refill ??? aspirin EC 81 mg Tablet, Delayed Release (E.C.) Take 81 mg by mouth daily. ??? acetaminophen (Tylenol) 325 mg Tablet Take 650 mg by mouth every 4 hours as needed for Pain. ??? losartan (COZAAR) 100 mg Tablet TAKE [...] (CALCIUM 600 WITH VITAMIN D3 ORAL) ??? loratadine (Claritin) 10 mg Tablet TAKE 1 TABLET BY MOUTH ONCE DAILY FOR ALLERGIES No current facility-administered medications for this visit. ALLERGIES/ADR Allergies Allergen Reactions ??? Dwayne Inhibitors PHYSICAL EXAMINATION: Vitals: 10/09/20 1140 BP: 150/60 BP Location (NB): Left arm Patient Position: Sitting BP Cuff Sizes: Adult (25-34 cm) Pulse: 85 Weight: 79.3 kg (174 lb 12.8 oz) Height: 163.8 cm (5' 4.5) Body mass index is 29.54 kg/m??. Constitutional: Well appearing elderly man, appropriate, no acute distress Skin: Pale, no cyanosis, no palmar erythema, no jaundice, no spider angiomata Head: Normocephalic, sclerae anicteric, oropharynx within normal limits, wearing mask Abdomen: Increased central adiposity, nondistended, nontender Neurologic: Alert and oriented x 3, no asterixis or tremor Extremities: No edema, no clubbing, no muscle wasting, no joint swelling ?? PERTINENT LABS AND IMAGING: No results found for this or any previous visit (from the past 24 hour(s)). Prior Laboratory: Lab Results Component Value Date WBC 4.4 05/29/2020 HGB 10.3 (L) 05/29/2020 HCT 32.2 (L) 05/29/2020 MCV 85.2 05/29/2020 PLATELET 87 (L) 05/29/2020 Lab Results Component Value Date NA 138 05/29/2020 K 4.4 05/29/2020 CL 107 05/29/2020 CO2 22 05/29/2020 BUN 16 05/29/2020 CREATININE 1.36 05/29/2020 GLUCOSE 98 05/29/2020 CALCIUM 8.9 05/29/2020 ESTGFR 50 (L) 05/29/2020 Lab Results Component Value Date ALT 18 05/29/2020 AST 27 05/29/2020 GGT 168 (H) 05/29/2020 ALKPHOS 132 (H) 05/29/2020 BILITOT 0.6 05/29/2020 ALBUMIN 3.5 05/29/2020 PROT 8.3 (H) 05/29/2020 Lab Results Component Value Date INR 1.2 05/29/2020 MELD-Na score: 12 at 05/29/2020 5:44 PM MELD score: 12 at 05/29/2020 5:44 PM Calculated from: Serum Creatinine: 1.36 mg/dL at 05/29/2020 5:44 PM Serum Sodium: 138 mmol/L (Rounded to 137 mmol/L) at 05/29/2020 5:44 PM Total Bilirubin: 0.6 mg/dL (Rounded to 1 mg/dL) at 05/29/2020 5:44 PM INR(ratio): 1.2 at 05/29/2020 5:44 PM Age: 79 years 11 months Lab Results Component Value Date AFP 3.0 05/29/2020 Lab Results Component Value Date HA1C 5.7 (H) 05/29/2020 Lab Results Component Value Date CHLPL 141 05/29/2020 HDL 36 05/29/2020 CHOLHDL 3.9 05/29/2020 TRIG 97 05/29/2020 LDLCHOL 86 05/29/2020 Ref. Range 05/29/2020 17:44 A1AT Latest Ref Range: 90 - 200 mg/dL 156 A1AT Genotype Unknown A1AT (SERPINA1) G... Mitochon Ab Latest Ref Range: <0.1 (Negative) U <0.1 Sm Muscle Ab Latest Ref Range: Negative Negative Hepatitis A Ab Latest Ref Range: Negative Negative HepB Surface Ab Quant Latest Units: IU/L <3.5 HepB Surface Ab Unknown Negative Hep B Core Ab Latest Ref Range: Negative Negative Endoscopy: EGD 09/06/20 (Dr. Vásquez): Impression: ?- No esophageal varices. Scar from ?prior band sites identified. ?- Normal stomach. ?- Normal examined duodenum. Recommendation: ?- Patient has a contact number ?available for emergencies. The signs ?and symptoms of potential delayed ?complications were discussed with the ?patient. Return to normal activities ?tomorrow. Written discharge ?instructions were provided to the ?patient. ?- Repeat upper endoscopy in 3 months ? for retreatment. ?- Return to liver clinic as ?previously scheduled with Berny ?PA. Guzman EGD 08/08/20 (Dr. Murillo): Impression: ?- Esophagogastric landmarks ?identified. ?- Large (> 5 mm) esophageal varices. ?Completely eradicated. Banded. ?- Normal stomach. ?- Normal examined duodenum. ?- No specimens collected. Recommendation: ?- Discharge patient to home. ?- Full liquid diet today. ?- Repeat upper endoscopy in 4 weeks ?for retreatment. ?- Return to hepatology clinic Imaging: Ultrasound 07/13/20: LIVER: ------ Right Lobe Length: 13.9 cm Echogenicity/Echotexture: Coarse parenchyma with capsular nodularity Portal Veins: Hepatopetal Comment: No focal lesion seen. GALLBLADDER: Cholelithiasis: No stones visualized Wall Thickness: Normal wall thickness Focal Tenderness: Negative sonographic Ortega's sign ?? BILIARY TRACT: Intrahepatic Ducts: Normal Extrahepatic Ducts: Normal Common Duct Size: 3.0 mm ?? ------- SPLEEN: ------- Size (cm) L: 13.5 AP: 5.5 TV: 6.6 ?? Vol (ml): 256.6 ?? Comment: Splenomegaly- mild ?? FLUID COLLECTIONS: No ascites seen. ?? IMPRESSION ?? Coarse heterogeneous hepatic parenchyma with capsular nodularity, compatible with hepatic cirrhosis. Mild splenomegaly. No focal mass. Patent portal vein. No ascites. ASSESSMENT & PLAN: Marleny Dixon is a 80 y.o. male with a history of fluctuating transaminases and chronic thrombocytopenia concerning for possible chronic liver disease who was found on FibroScan to very likely have cirrhosis with portal hypertension. Still unclear to the etiology of this as his lab work-up was entirely negative for etiologies such as infectious, genetic/metabolic, or autoimmune liver disease. He does have a history of regular alcohol use and some metabolic risks for fatty liver, and with elevated CAP score on FibroScan likely has some degree of steatohepatitis. 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 He has very well compensated, Esjnd-[id number]-Cvxn class A cirrhosis. He was found to have large esophageal varices on EGD in July, with resolution after banding. Recommendation was for repeat exam in 3 months (November 2020). Because he will be due for screening colonoscopy then, we will combine EGD with colonoscopy at that time. I again reviewed with him the natural history of cirrhosis and sequelae of portal hypertension and that banding as varices will decrease his overall risk of bleeding episodes in the future. He does need routine screening however andper protocol is due in November. If he does not have varices in November, likely will repeat again inabout 6 months from then. I do wonder if perhaps we should check an DWAYNE level given his chronic restrictive lung disease, to see if sarcoidosis should be on the radar for etiology. I will discuss further with my hepatology colleagues about this. Our management plan is similar to last visit as described below: Plan: -Consider testing for sarcoidosis given his history of restrictive lung disease. Will discuss with liver team. -Upper endoscopy and screening colonoscopy with propofol anesthesia arranged for 12/14/2020 with . -Diet: Again reviewed he should focus on low carbohydrate, low-fat, high-protein options. Specifically, the Mediterranean diet is most beneficial in the setting of fatty liver. He should eliminate all high fructose corn syrup (especially from soda). Coffee, 2 to 3 cups daily, ideally black is also recommended. Reviewed low calorie ice cream alternatives and beverages. -Strongly recommend consultation with local dietitian, which can be arranged by PCP. -He should continue to remain abstinent from all alcohol. -Recommend combined HAV/HBV vaccine series through PCP office. -Pneumococcal vaccine recommended every 5 years. Repeat influenza vaccine again next year. -Hepatology follow-up in December 2020 with ultrasounds for HCC screening and labs prior. 18 of this 20 minute visit was in [id number] discussion regarding disease, prognosis and treatment. Miguel Hinds PA-C Section of Gastroenterology [place] [address] Cc: Edgar Marie MD @PCPADD@ documented in this encounter Plan of Treatment Scheduled Referrals Name Type Priority Associated Diagnoses Order Schedule Referral to Gastroenterology Outpatient Referral Routine Cirrhosis of liver without ascites, unspecified hepatic cirrhosis type Portal hypertension Screening for colon cancer Ordered: 10/09/2020 documented as of this encounter Results * (ABNORMAL) Prothrombin Time (01/08/2021 9:48 AM EST) Prothrombin Time 15.1(H) 9.4 - 12.5 sec [facility] International Normalization Ratio 1.3 [facility] Comment: An INR <2.0 indicates [...] Narrative Resulting Agency Comment Spec In Lab Brittany Rico MD HEMATOLOGY ORDERABLE S [facility] [place] [address] * (ABNORMAL) Comprehensive metabolic panel (non-fasting) (01/08/2021 9:48 AM EST) Glucose 94 65 - 199 mg/dL [facility] Comment:Diabetes: >=200 mg/d L plus symptoms Blood Urea Nitrogen 14 10 - 20 mg/dL [facility] Creatinine 1.27 0.80 - 1.50 mg/dL [facility] Sodium 141 135 - 145 mmol/L [facility] Potassium 4.2 3.5 - 5.0 mmol/L [facility] Comment: Please note: ??Patients with WBC >100,000 may have falsely elevated Potassium levels. ??For accurate Potassium quantification in these patients send serum separator tube (gold top) for subsequent determinations. ??Contact the Clinical Chemistry Laboratory if there are any questions. Chloride 107 98 - 107 mmol/L [facility] Carbon Dioxide 26 22 - 31 mmol/L [facility] Anion Gap 8 5 - 15 mmol/L [facility] Calcium 9.0 8.5 - 10.5 mg/dL [facility] Protein, Total 8.4(H) 6.1 - 8.0 gm/dL [facility] Albumin 3.3 3.2 - 5.2 gm/dL [facility] Aspartate Aminotransferase 22 0 - 39 unit/L [facility] Alanine Aminotransferase 15 0 - 55 unit/L [facility] Alkaline Phosphatase 160(H) 40 - 130 unit/L [facility] Bilirubin, Total 0.7 0.2 - 1.3 mg/dL [facility] Est Glomerular Filtration Rate 54(L) >=60 mL/min/1. 73 m?? [facility] Comment: This patient? s estimated glomerular [...] Narrative Resulting Agency Comment Spec In Lab Brittany Rico MD CHEMISTRY ORDERABLES [facility] [place] [address] * US Abdomen Limited Hepatology Protocol (01/08/2021 [...] this report, please contact the number below. ?Martin Pineda, Staff Physician Electronically Signed Final Report ?? 01/08/2021 09:10 am Narrative 01/08/2021 9:10 AM EST Abdominal ? (Signed Final 01/08/2021 09:10 am) PATIENT INFO: ID #: ? [id number] ?: ??[birth year] (80 yrs)(M) Name: ? MARLENY DIXON ? Visit Date: 01/08/2021 08:27 am PERFORMED BY: Performed By: ? Court Yanez RDMS Attending: ?Martin Pineda MD. Referred By: ?BRITTANY RICO Location: ? [place] [facility] Protocol - Abdominal ? [id number] Limited Survey Single Organ or Quadrant - [id number] INDICATIONS: cirrhosis, screen for hepatoma COMPARISON: US [...] 01/08/2021 09:10 am) PATIENT INFO: ID #: [id number] : 42 (80 yrs)(M) Name: MARLENY DIXON Visit Date: 01/08/2021 08:27 am PERFORMED BY: Performed By: Court Yanez RDMS Attending: Martin Pineda MD Referred By: BRITTANY RICO Location: [place] [facility] Protocol - Abdominal [id number] Limited Survey Single Organ or Quadrant - [id number] INDICATIONS: cirrhosis, screen for hepatoma COMPARISON: US [...] below. Electronically signed by: Martin Pineda MD, [facility] ([phone]), at 01/08/2021 9:03 AM Martin Pineda, Staff Physician Electronically Signed Final Report 01/08/2021 09:10 am Brittany Rico MD IM US GEN ORDERABLE S documented in this encounter Visit Diagnoses Diagnosis Cirrhosis of liver without ascites, unspecified hepatic cirrhosis type- Primary Portal hypertension Screening for colon cancer Special screening for malignant neoplasms, colon Cirrhosis of liver without ascites, unspecified hepatic cirrhosis type documented in this encounter Care Teams Telephone Repairer Relationship Specialty Start Date End Date Edgar Marie MD PCP - General Family Medicine 08/30/16 documented as of this encounter
--- OUTSIDE RECORDS SUMMARY | 2024-09-03 17:52 | XMS_ITS | Encounter Summary ---
Author Organization [facility] [place] [address] Care Team Providers Care Shipping Lead Person Name Role Phone Edgar Marie MD Primary Care Provider [phone] Encounter Details Date Type Department Care Team (Late st Contact Info) Description 09/12/2020 Telephone [place] [id number] Marcell Zhu Social History Tobacco Use Types Packs/Day Years [...] encounter Miscellaneous Notes * Telephone Encounter - Marcell Zhu - 09/12/2020 8:43 AM EDT Outgoing call to schedule EGD November 2020. Home/Cell ring and ring with no answer and no voicemail. Sending letter. * Telephone Encounter - Marcell Zhu - 09/12/2020 8:43 AM EDT ----- Message from Virgie Aguirre sent at 09/07/2020 5:58 AM EDT ----- Regarding: FW: varices ----- Message ----- From: Randolph Vásquez MD Sent: 09/06/2020 4:00 PM EDT To: NAEEM Gaston, # Subject: varices Hi Endo Team - Please schedule for EGD for cryptogenic cirrhosis and esophageal varices in 3 months, around December 07, 2020. Berny - no varices on today's EGD after Dr. Murillo bandaneesh in July 2020. EGD otherwise normal. Randolph documented in this encounter Plan of Treatment Not on file documented as of this encounter Visit Diagnoses Not on filedocumented in this encounter Care Teams Shipping Lead Person Relationship Specialty Start Date End Date Edagr Marie MD PCP - General Family Medicine 08/30/16 documented as of this encounter
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
--- OUTSIDE RECORDS SUMMARY | 2024-09-03 17:52 | XMS_ITS | Encounter Summary ---
Author Organization [facility] Address [facility] [place] [address] Care Team Providers Care Cupola Tapper Name Role Phone Edgar Marie MD Primary Care Provider [phone] Encounter Details Date Type Department Care Team (Latest Contact Info) Description 07/13/2020 1:10 PM EDT - 07/13/2020 11:59 PM EDT Hospital En[place] [phone] [facility] [place] [address] Hepatic cirrhosis, unspecified hepatic cirrhosis type, unspecified [...] Sig Dispensed Refills Start Date End Date loratadine (Claritin) 10 mg Tablet TAKE 1 [...] Tablet, Chewable Take by mouth. 02/25/2017 10/28/2023 PSYLLIUM HUSK ORAL Take by mouth. 020 documented as of this encounter Plan of Treatment Not on file documented as of this encounter Procedures Procedure Name Priority Date/Time Associated Diagnosis Comments US ABDOMEN VASCULAR LIMITED - HEPATOLOGY PROTOCOL Routine 07/13/2020 1:54 PM EDT Hepatic cirrhosis, unspecified hepatic cirrhosis type, unspecified whether ascites present documented in this encounter Results * US Abdomen Vascular Limited Hepatology Protocol (07/13/2020 1:54 PM EDT) Anatomical Region Laterality Modality Abdomen Ultrasound 07/13/2020 1:55 PM EDT Impressions 07/13/2020 2:23 PM EDT Coarse heterogeneous hepatic parenchyma with capsular nodularity, compatible with hepatic cirrhosis. Mild splenomegaly. ??No focal mass. Patent portal vein. No ascites. I have personally reviewed the image(s) and the resident's interpretation and agree with the findings, Susu Enciso at 07/13/2020 2:15 PM Thank you for letting us participate in the care of this patient. For questions regarding this report, please contact the number below. Electronically signed by: Susu Enciso [facility] ([phone]), at 07/13/2020 2:15 PM ? Susu Enciso, Staff Physician Electronically Signed Final Report ?? 07/13/2020 02:22 pm Narrative 07/13/2020 2:23 PM EDT Abdominal ? (Signed Final 07/13/2020 02:22 pm) PATIENT INFO: ID #: ? [id number] ?: ??[birth year] (80 yrs)(M) Name: ? MARLENY DIXON ? Visit Date: 07/13/2020 01:55 pm PERFORMED BY: Performed By: ? Jay Carmona RDMS Attending: ?Fernie BERG, Susu Villarreal Resident: ? Marisa BERG, Isarel Villarreal Referred By: ?BRITTANY RICO Location: ? [place] SERVICE(S) PROVIDED: ??UABDLIM - Hepatology Protocol - Abdominal ? 63343 ??Limited Survey Single Organ or Quadrant - ??[id number] INDICATIONS: ??New diagnosis of cirrhosis with likely portal ??hypertension, eval for HCC, organomegaly, ??and eval portal vein from thrombosis COMPARISON: No prior studies for comparison. ------ LIVER: ------ Right Lobe Length: ?? 13.9 ?? cm Echogenicity/Echotexture: ?? Coarse parenchyma with capsular ? nodularity Portal Veins: ?Hepatopetal Comment: ?No focal lesion seen. GALLBLADDER: Cholelithiasis: ?No stones visualized Wall Thickness: ?Normal wall thickness Focal Tenderness: ?Negative sonographic Ortega's sign BILIARY TRACT: Intrahepatic Ducts: ?? Normal Extrahepatic Ducts: ?? Normal Common Duct Size: ? 3.0 ? mm ------- SPLEEN: ------- Size (cm) ?L: ??13.5 ?AP: ??5.5 ? TV: ??6.6 Vol (ml): ?256.6 Comment: ?Splenomegaly- mild FLUID COLLECTIONS: No ascites seen. Procedure Note Susu Enciso MD - 07/13/2020 Abdominal (Signed Final 07/13/2020 02:22 pm) PATIENT INFO: ID #: [id number] : 44 (80 yrs)(M) Name: MARLENY DIXON Visit Date: 07/13/2020 01:55 pm PERFORMED BY: Performed By: Jay Carmona RDMS Attending: Susu Enciso MD Resident: Israel Cunningham MD Referred By: BRITTANY RICO Location: [place] SERVICE(S) PROVIDED: UABDLIM - Hepatology Protocol - Abdominal 98142 Limited Survey Single Organ or Quadrant - [id number] INDICATIONS: New diagnosis of cirrhosis with likely portal hypertension, eval for HCC, organomegaly, and eval portal vein from thrombosis COMPARISON: No prior studies for comparison. ------ LIVER: ------ Right Lobe Length: 13.9 cm Echogenicity/Echotexture: Coarse parenchyma with capsular nodularity Portal Veins: Hepatopetal Comment: No focal lesion seen. GALLBLADDER: Cholelithiasis: No stones visualized Wall Thickness: Normal wall thickness Focal Tenderness: Negative sonographic Ortega's sign BILIARY TRACT: Intrahepatic Ducts: Normal Extrahepatic Ducts: Normal Common Duct Size: 3.0 mm ------- SPLEEN: ------- Size (cm) L: 13.5 AP: 5.5 TV: 6.6 Vol (ml): 256.6 Comment: Splenomegaly- mild FLUID COLLECTIONS: No ascites seen. IMPRESSION Coarse heterogeneous hepatic parenchyma with capsular nodularity, compatible with hepatic cirrhosis. Mild splenomegaly. No focal mass. Patent portal vein. No ascites. I have personally reviewed the image(s) and the resident's interpretation and agree with the findings, Susu Enciso at 07/13/2020 2:15 PM Thank you for letting us participate in the care of this patient. For questions regarding this report, please contact the number below. Susu Enciso, Staff Physician Electronically Signed Final Report 07/13/2020 02:22 pm Brittany Rico MD IMG US GEN ORDERABLE S documented in this encounter Visit Diagnoses Diagnosis Hepatic cirrhosis, unspecified hepatic cirrhosis type, unspecified whether ascites present documented in this encounter Care Teams Cupola Tapper Relationship Specialty Start Date End Date Edgar Marie MD PCP - General Family Medicine 08/30/16 documented as of this encounter
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
--- OUTSIDE RECORDS SUMMARY | 2024-09-03 17:52 | XMS_ITS | Encounter Summary ---
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 Name Role Phone Edgar Marie MD Primary Care Provider [phone] Reason for Referral * Consultation (Routine) - Closed Specialty Diagnoses / Procedures Referred By Ericka hunter Referred To Contact Gastroenterology Diagnoses Hepatic cirrhosis, unspecified hepatic cirrhosis type, unspecified whether ascites present Hematochezia New diagnosis of cirrhosis with likely portal hypertension, needs screening EGD for esophageal varices; EVL preferred for LV if present Procedures needs screening EGD for esophageal varices; EVL preferred for LV if present Miguel Hinds PA [address] [place] [id number] [facility] Endoscopy [address] [place] [id number] Referral ID Status Reason Start Date Expiration Date V isits Requested Visits Authorized [id number] Closed Consult, Test & Treat 05/29/2020 05/29/2021 1 1 Reason for Visit * Consultation (Routine) - Specialty Diagnoses / Procedures Referred By Ericka hunter Referred To Contact Gastroenterology Diagnoses Abnormal results of liver function studies Splenomegaly, not elsewhere classified ONSITE - ABNORMAL LIVER FUNCTION TESTS- wants FIBROSCAN s.day (due to work) Edgar Marie MD [address] [place] [id number] [facility] [place] [address] Referral ID Status Reason Start Date Expiration Date V isits Requested Visits Authorized [id number] Consult, Test & Treat Connection Center PCP Updated and/or Approved 03/15/2020 09/14/2020 6 6 Encounter Details Date Type Department Care Team (Late st Contact Info) Description 05/29/2020 4:00 PM EDT Office [place] [phone] Miguel Hinds PA [address] [place] [address] [place] [address] Hepatic cirrhosis, unspecified hepatic cirrhosis type, unspecified whether ascites present (Primary Dx); Hepatic steatosis; Elevated alkaline phosphatase level; Hematochezia Social History Tobacco Use Types Packs/Day Years [...] Sign Reading Time Taken Comments Blood Pressure 152/82 05/29/2020 3:50 PM EDT Pulse 85 05/29/2020 3:50 PM EDT Temperature - - Respiratory Rate - - Oxygen Saturation - - Inhaled Oxygen Concentration - - Weight 79.2 kg (174 lb 8 oz) 05/29/2020 3:50 PM EDT Height 167.6 cm (5' 6) 05/29/2020 3:50 PM EDT Body Mass Index 28.17 05/29/2020 3:50 PM EDT documented in this encounter Progress Notes * Miguel Hinds PA - 05/29/2020 4:00 PM EDT Images from the original note were not included. 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 Prostate cancer C61 ??? 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 CKD (chronic kidney disease) N18.9 ??? 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 Chronic allergic rhinitis J30.9 ??? Thrombocytopenia D69.6 ??? Carpal tunnel syndrome on right G56.01 ??? Restrictive lung disease J98.4 ??? Hypertension I10 HISTORY OF PRESENT ILLNESS Vinod Martin is a 79 y.o. male referred to hepatology clinic for evaluation of abnormal liver function tests. He states he has never been told about any problems regarding his liver in the past. He admits thathe did drink fairly heavily many years ago but quit about 20 years ago and has not had a single drop since. He drink only light beer and would typically split a 30 pack weekly between him and his . He never drank hard liquor. The thoughts or taste of beer makes him sick now. He is unsure exactly why he is here today and does not remember his doctor telling him about abnormal liver tests. He does recall having an ultrasound of his belly a couple of years ago but not sure about the results. This would have been done up in [place]. This morning he had some blood in his bowel movement which was particularly hard and he had to strain. This happens every so often and he states he used to take a fiber supplement for this but he hasnot taken it in quite some time. For his history of prostate cancer, he underwent radiation therapymany years ago and states that he has been essentially cured for a few years now. He has never had dark/coffee-ground stools and he denies any vomiting blood. He had a colonoscopy in 2010 that was normal. He currently denies any abdominal pain or bloating/swelling, jaundice, nausea/vomiting, easy bruising/bleeding, or other rashes. He does have some discoloration on the lower part of his legs that he believes is related to poison glory from when he was mowing his lawn the other day. 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 He is hoping to go back to work soon. He admits that he drinks a lot of soda, going through a full case of regular 12 ounce cans of Coca-Cola every week. He also enjoys chocolate milk and nighttime. He lives alone and provides for himself but does not cook much, usually buying premade meals at the grocery store. REVIEW OF SYSTEMS General: Denies weight loss, fatigue, poor sleep, fever, chills, night sweats Skin: Denies new rashes, easy bruising, jaundice EENT: Admits poor hearing, denies blurred vision or change in vision, sinus problems, dry eyes or mouth Endocrine: Denies change in tolerance to heat or cold, excessive thirst Cardiovascular: Denies chest pain, palpitations or irregular heart beat, pain in legs with walking,swelling in feet Pulmonary: Admits shortness of breath, denies persistent cough, coughing up blood, asthma or wheezing Gastrointestinal: See HPI Musculoskeletal: Denies pain in joints, back pain, neck or shoulder pain, muscle cramping, movementof legs at night Neurologic: Denies blackouts or loss of consciousness, headache, weakness or numbness in legs or arms, tremor, worsening memory and concentration Genitourinary: Denies frequent urination, blood in urine Psychiatric: Denies changes in mood or behavior, anxiety MEDICATIONS Current Outpatient Medications Medication Sig Dispense Refill ??? loratadine (Claritin) 10 mg Tablet TAKE 1 TABLET BY MOUTH ONCE DAILY FOR ALLERGIES ??? losartan (COZAAR) 100 mg Tablet TAKE 1 TABLET BY MOUTH ONCE DAILY FOR BLOOD PRESSURE ??? omeprazole (PRILOSEC) 20 mg Capsule, Delayed Release(E.C.) TAKE 1 CAPSULE BY MOUTH ONCE DAILY 3 ??? SPIRIVA RESPIMAT 2.5 mcg/actuation Mist INHALE 2 SPRAY(S) BY MOUTH ONCE DAILY 5 ??? albuterol (PROAIR HFA) 90 mcg/Actuation inhaler ??? CALCIUM CARBONATE/VITAMIN D3 (CALCIUM 600 WITH VITAMIN D3 ORAL) ??? magnesium 250 mg Tablet Take by mouth. ??? PSYLLIUM HUSK ORAL Take by mouth. No current facility-administered medications for this visit. ALLERGIES Allergies Allergen Reactions ??? 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 Marital status: , no biological children, 3 step-daughters Smoking: Never Alcohol: See HPI Other drug: Never FAMILY HISTORY Negative except as noted below Medical problem Family member Medical Problem Family member Medical Problem Family member Alcohol drug Problem Kidney disease Mental illness Anemia or Blood Disease Liver disease Depression Diabetes Liver cancer Seizure High blood pressure Mother Stroke Lung disease Heart disease Father (ASCVD), mother ([place]) Clotting problems Colon Cancer High cholesterol Immune disorders Other Cancer Brother , unknown cause PHYSICAL EXAM Vitals: 05/29/20 1550 BP: 152/82 BP Location ([facility]): Left arm Patient Position: Sitting BP Cuff Sizes: Adult (25-34 cm) Pulse: 85 Weight: 79.2 kg (174 lb 8 oz) Height: 167.6 cm (5' 6) Body mass index is 28.17 kg/m??. Constitutional: Well appearing elderly man, appropriate, no acute distress, speaking loudly Skin: Pale, no cyanosis, no palmar erythema, no jaundice, no spider angiomata Head: Normocephalic, sclerae anicteric, oropharynx within normal limits, wearing mask Abdomen: Increased central adiposity, mild distention, liver edge palpable 2 cm below costal margin, nontender, no discernable splenomegaly, no masses, no fluid wave, no umbilical hernia, no caput medussae Neurologic: Alert and oriented x 3, no asterixis or tremor Extremities: No edema, no clubbing, no muscle wasting, no joint swelling RESULTS Recent Results (from the past 24 hour(s)) Lipid Panel (Reflex Direct LDL) Result Value Ref Range Chol, Total 141 mg/dL Triglycerides 97 mg/dL HDL 36 mg/dL LDL Cholesterol 86 mg/dL Chol/HDL Ratio 3.9 ratio Lipid Interpretation See Note Hemoglobin A1c Result Value Ref Range Hemoglobin A1C 5.7 (H) 4.3 - 5.6 % Est Avg Gluc See note mg/dL Hepatitis B Core Antibody, Total Result Value Ref Range Hep B Core Ab Negative Negative Hepatitis B Surface Antibody Result Value Ref Range HepB Surface Ab Quant <3.5 IU/L HepB Surface Ab Negative Hepatitis A Antibody, Total Result Value Ref Range Hepatitis A Ab Negative Negative Gamma GT Result Value Ref Range GGT 168 (H) 8 - 61 unit/L AFP tumor marker Result Value Ref Range AFP 3.0 <=8.3 ng/mL Prothrombin Time Result Value Ref Range PT 13.9 (H) 9.4 - 12.5 sec INR 1.2 Comprehensive metabolic panel (non-fasting) Result Value Ref Range Glucose Lvl 98 65 - 199 mg/dL BUN 16 10 - 20 mg/dL Creatinine 1.36 0.80 - 1.50 mg/dL Sodium 138 135 - 145 mmol/L Potassium 4.4 3.5 - 5.0 mmol/L Chloride 107 98 - 107 mmol/L CO2 22 22 - 31 mmol/L Anion Gap 9 5 - 15 mmol/L Calcium 8.9 8.5 - 10.5 mg/dL Total Protein 8.3 (H) 6.1 - 8.0 gm/dL Albumin 3.5 3.2 - 5.2 gm/dL AST 27 0 - 39 unit/L ALT 18 0 - 55 unit/L Alk Phos 132 (H) 40 - 130 unit/L Total Bilirubin 0.6 0.2 - 1.3 mg/dL eGFR 50 (L) >=60 mL/min/1.73 m?? eGFR 58 (L) >=60 mL/min/1.73 m?? A1AT Serum Concentration Result Value Ref Range A1AT 156 90 - 200 mg/dL Hemogram Result Value Ref Range WBC 4.4 4.0 - 9.5 x10(3)/mcL RBC 3.78 (L) 4.58 - 5.54 x10(6)/mcL Hemoglobin 10.3 (L) 13.7 - 16.5 gm/dL Hematocrit 32.2 (L) 40.5 - 48.5 % MCV 85.2 82.9 - 93.1 fL MCH 27.2 (L) 27.5 - 32.1 pg MCHC 32.0 32.0 - 35.7 gm/dL Platelets 87 (L) 145 - 357 x10(3)/mcL RDWSD 43.4 36.0 - 45.0 fL RDWCV 13.9 (H) 11.4 - 13.8 % MPV 12.5 7.6 - 12.9 fL nRBC % Auto 0.0 % nRBC Abs Auto 0.000 0.000 - 0.000 x10(3)/mcL Differential, Automated Result Value Ref Range Neutrophils % 72.2 % Neutr Abs (ANC) 3.20 1.70 - 6.10 x10(3)/mcL Lymphocytes % 17.4 % Lymphocytes Abs 0.8 (L) 0.9 - 3.2 x10(3)/mcL Monocytes % 5.9 % Monocyte Abs 0.3 0.3 - 0.9 x10(3)/mcL Eosinophils % 3.6 % Eosinophils Abs 0.2 0.0 - 0.4 x10(3)/mcL Basophils % 0.7 % Basophils Abs 0.0 0.0 - 0.1 x10(3)/mcL Immature Gran % 0.20 % Sadie Gran Abs 0.01 0.00 - 0.04 x10(3)/mcL MELD-Na score: 12 at 05/29/2020 5:44 PM MELD score: 12 at 05/29/2020 5:44 PM Calculated from: Serum Creatinine: 1.36 mg/dL at 05/29/2020 5:44 PM Serum Sodium: 138 mmol/L (Rounded to 137 mmol/L) at 05/29/2020 5:44 PM Total Bilirubin: 0.6 mg/dL (Rounded to 1 mg/dL) at 05/29/2020 5:44 PM INR(ratio): 1.2 at 05/29/2020 5:44 PM Age: 79 years Non-DH Laboratory: 09/03/19 @ [facility]: 02/17/19: 02/11/19: 01/21/18: 02/12/16: Imaging: No abdominal imaging available in referral records - per patient and PCPnotes, had ultrasound showing splenomegaly Fibroscan Results Today: Median kPa: 43.6 Mean IQR: 8% (goal is <30 %) Number of valid measurements: 10 (10 required) Number of invalid measurements: 0 Predicted fibrosis stage: F4 (cirrhosis) CAP (dB/m): 333 ASSESSMENT/PLAN Vinod Martin is a 79 y.o. 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 On a couple of occasions he has also had slightly abnormal transaminases which have been AST greater than ALT. He has no prior liver or GI history other than radiation proctitis. Per his report, he was a daily beer drinker for his early adult life though has been entirely abstinent for about 20 years. There is no available abdominal imaging with his referral records, though reports states he was found to have splenomegaly which also leads to the suspicion that he may have cirrhosis. On FibroScan today, liver stiffness was quite high, consistent with cirrhosis and possible portal hypertension. I do believe that this plus the above lab findings make it highly likely that he does not fact have cirrhosis. I am reassured however by his relatively benign history and exam showing no signs of decompensation. He would be classified as a Fmmpd-Naoennrh-Himb class A cirrhotic. It is still unclear theexact etiology of his cirrhosis, for now would be classified as cryptogenic, though is likely a mixof prior alcohol use as well as nonalcoholic steatohepatitis (SPENCER) given his history of hypertension and overweight status. Prior work-up was negative for active HCV and HBV and iron studies were within normal limits. Additional labs today thus far show negative HAV total antibody, hep B surface and core antibodies, normal A1AT, normal lipids, A1c 5.7%, normal AFP, slightly elevated alk phos and GGT indicating liver etiology, and overall MELD-Na of 12. Though much less likely, smooth muscle and mitochondrial antibodies are pending for the possibility of autoimmune hepatitis or primary biliary cholangitis (PBC), respectively. I had a discussion with him following his FibroScan that since this very much likely is a case of cirrhosis we will need to follow him over time with routine screening for hepatocellular carcinoma and portal hypertension with endoscopic surveillance for esophageal varices. We reviewed the pathophysiology of portal hypertension as well as longstanding fatty liver and how this can contribute to chronic fibrosis within the liver. I explained to him that management from here will not be much different than he has now, and mostly will revolve around dietary and lifestyle adjustments to better control his metabolic syndrome and prevent future decompensating events. I do think he would benefit greatly from a discussion with a dietitian regarding available food options and recommended diet for cirrhotics (see below). Plan: -Await results of ASMA, AMA, and A1AT genotype. -May also consider testing for sarcoidosis at next visit given his history of restrictive lung disease. -Upper endoscopy next available for varices screening. If he is found to have large varices, we would likely treat with serial band ligation rather than nonselective beta-moses given his history ofrestrictive lung disease. -Obtain most recent abdominal imaging from PCP office. Regardless, he will need updated imaging nowwhich we will schedule in the form of an ultrasound to be done at [facility] [place]. -Diet: He should focus on low carbohydrate, low-fat, high-protein options. Specifically, the Mediterranean diet is most beneficial in the setting of fatty liver. He should eliminate all high fructosecorn syrup (especially from soda). Coffee, 2 to 3 cups daily, ideally black is also recommended. -Strongly recommend consultation with local dietitian, which can be arranged by PCP. -For occasional BRBPR, this is likely hemorrhoidal and I recommended he go back on [id number] supplement. If this continues despite supplementation, we will arrange for colonoscopy and orbanding of his hemorrhoids. -He is due for colonoscopy next year anyway based on his history of a normal colonoscopy in 2010. -He should continue to remain abstinent from all alcohol. -Recommend combined HAV/HBV vaccine series through PCP office. -Pneumococcal vaccine recommended every 5 years. Influenza vaccine recommended annually. -Hepatology follow-up in person in clinic approximately 1 to 2 weeks following EGD, with ultrasoundprior. 75 of this 80 minute visit was in [id number] discussion regarding disease, prognosis and treatment. This is exclusive of the time spent performing the Fibroscan procedure. Miguel Hinds PA-C Section of Gastroenterology [place] [address] Copy: MD Edgar Thomas documented in this encounter Procedure Notes * Miguel Hinds PA - 05/29/2020 4:00 PM EDTAssociated Order(s): FIBROSCAN Procedure(s): FIBROSCAN Pre-Procedure Diagnose(s): Hepatic cirrhosis, unspecified hepatic cirrhosis type, unspecified whether ascites present [facility] Liver Fibrosis Assessment Report Indication: Concern for hepatic cirrhosis with hypoalbuminemia, thrombocytopenia, and splenomegaly reported on imaging Performed by: NAEEM Gaston Procedure: Vibration Controlled Transient Elastography (VCTE) or Fibroscan [place] Protocol: Patient's identity, procedure and site were verified, confirmatory pause performed. Discussed procedure including risks and potential complications. Questions answered. Patient verbalizes understanding and wishes to proceed with Fibroscan assessment. Patient was placed in the supine position with right arm in maximum abduction to allow optimal exposure of right lateral abdomen. Patient was briefly assessed. Testing was performed in the mid-axillary location. 50Hz Shear Wave pulses were applied and the resulting Shear Wave and Propagation Speed was detected with a 3.5MHz ultrasonic signal, using the Fibroscan probe. Skin to liver capsule distance and liver parenchyma were accessed during the entire examination with the Fibroscan probe. Patient was instructed to breathe normally and abstain from sudden movements during the procedure. At least ten Sheer Waves were produced; individual measurements of each Shear Wave were calculated. Patient tolerated the procedure well with no complications. 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 documented in this encounter Plan of Treatment Scheduled Referrals Name Type Priority Associated Diagnoses Order Schedule Referral to Gastroenterology Outpatient Referral Routine Hepatic cirrhosis, unspecified hepatic cirrhosis type, unspecified whether ascites present Hematochezia Ordered: 05/29/2020 documented as of this encounter Procedures Procedure Name Priority Date/Time Associated Diagnosis Comments A1AT GENOTYPE Routine 05/29/2020 5:44 PM EDT Hepatic cirrhosis, unspecified hepatic cirrhosis type, unspecified whether ascites present HC A1AT (ALPHA-1 ANTITRYPSIN) Routine 05/29/2020 5:44 PM EDT Hepatic cirrhosis, unspecified hepatic cirrhosis type, unspecified whether ascites present HEMOGRAM Routine 05/29/2020 5:44 PM EDT Hepatic cirrhosis, unspecified hepatic cirrhosis type, unspecified whether ascites present DIFFERENTIAL, AUTOMATED Routine 05/29/2020 5:44 PM EDT Hepatic cirrhosis, unspecified hepatic cirrhosis type, unspecified whether ascites present [id number] Routine 05/29/2020 5 :44 PM EDT Hepatic cirrhosis, unspecified hepatic cirrhosis type, unspecified whether ascites present HC HEPATITIS A, TOTAL Routine 05/29/2020 5:44 PM EDT Hepatic cirrhosis, unspecified hepatic cirrhosis type, unspecified whether ascites present HC PCH MITOCHONDRIAL ANTIBODY Routine 05/29/2020 5:44 PM EDT Hepatic cirrhosis, unspecified hepatic cirrhosis type, unspecified whether ascites present HC ALPHA FETOPROTEIN TUMOR MARKER Routine 05/29/2020 5:44 PM EDT Hepatic cirrhosis, unspecified hepatic cirrhosis type, unspecified whether ascites present HC HEPATITIS B CORE AB Routine 0 5:44 PM EDT Hepatic cirrhosis, unspecified hepatic cirrhosis type, unspecified whether ascites present HC PCH SMOOTH MUSCLE AB, SERUM Routine 05/29/2020 5:44 PM EDT Hepatic cirrhosis, unspecified hepatic cirrhosis type, unspecified whether ascites present HC HEPATITIS B SURFACE AB Routine 05/29/2020 5:44 PM EDT Hepatic cirrhosis, unspecified hepatic cirrhosis type, unspecified whether ascites present HC PROTHROMBIN TIME Routine 05/29/2020 5 :44 PM EDT Hepatic cirrhosis, unspecified hepatic cirrhosis type, unspecified whether ascites present HC CBC,PLT & AUTO DIFF Routine 0 5:44 PM EDT Hepatic cirrhosis, unspecified hepatic cirrhosis type, unspecified whether ascites present HC HEMOGLOBIN A1C Routine 05/29/2020 5:4 4 PM EDT Hepatic cirrhosis, unspecified hepatic cirrhosis type, unspecified whether ascites present HC GAMMA GLUTAMYL TRANSFERASE Routine 05/29/2020 5:44 PM EDT Hepatic cirrhosis, unspecified hepatic cirrhosis type, unspecified whether ascites present HC VENIPUNCTURE Routine 05/29/2020 5:44 PM EDT Hepatic cirrhosis, unspecified hepatic cirrhosis type, unspecified whether ascites present COMPREHENSIVE METABOLIC PANEL Routine 05/29/2020 5:44 PM EDT Hepatic cirrhosis, unspecified hepatic cirrhosis type, unspecified whether ascites present [id number] Routine 05/29/2020 4:00 PM EDT Hepatic cirrhosis, unspecified hepatic cirrhosis [...] this report, please contact the number below. ? Susu Enciso, Staff Physician Electronically Signed Final Report ?? 07/13/2020 02:22 pm Narrative 07/13/2020 2:23 PM EDT Abdominal ? (Signed Final 07/13/2020 02:22 pm) PATIENT INFO: ID #: ? [id number] ?: ??[birth year] (80 yrs)(M) Name: ? VINOD MARTIN ? Visit Date: 07/13/2020 01:55 pm PERFORMED BY: Performed By: ? Jay Carmona RDMS Attending: ?Fernie BERG, Susu Villarreal Resident: ? Marisa BERG, Israel Villarreal Referred By: ?DIA RICO Location: ? [place] SERVICE(S) PROVIDED: ??UABDLIM - Hepatology Protocol - Abdominal ? [id number] ??Limited Survey Single Organ or Quadrant - ??[id number] INDICATIONS: ??New diagnosis of cirrhosis with likely [...] 07/13/2020 02:22 pm) PATIENT INFO: ID #: [id number] : [birth year] (80 yrs)(M) Name: VINOD MARTIN Visit Date: 07/13/2020 01:55 pm PERFORMED BY: Performed By: Jay Carmona RDMS Attending: Susu Enciso MD Resident: Israel Cunningham MD Referred By: DIA RICO Location: [place] SERVICE(S) PROVIDED: BDLIM - Hepatology Protocol - Abdominal [id number] Limited Survey Single Organ or Quadrant - [id number] INDICATIONS: New diagnosis of cirrhosis with likely [...] Electronically Signed Final Report 07/13/2020 02:22 pm Dia Rico MD IMG US GEN ORDERABLE S * (ABNORMAL) Differential, Automated (05/29/2020 5:44 PM EDT) Neutrophil % 72.2 % [facility] Neutrophil Absolute 3.20 1.70 - 6.10 x10(3)/mc L [facility] Lymph % 17.4 % [facility] Lymphocytes Abs 0.8(L) 0.9 - 3.2 x10(3)/[facility] Monocyte % 5.9 % [facility] Monocyte Abs 0.3 0.3 - 0.9 x10(3)/[facility] Eos % 3.6 % [facility] Eosinophils Abs 0.2 0.0 - 0.4 x10(3)/[facility] Basophil % 0.7 % [facility] Baso Absolute 0.0 0.0 - 0.1 x10(3)/[facility] Immature Gran % 0.20 % [facility] Comment: Immature granulocytes(IG's)percentage and absolute count will include metamyelocytes, myelocytes, and promyelocytes. Blood smears from CBCs yielding IG's will be scanned manually for concordance. If this scan disagrees with the automated IG or if promyelocytes are noted, a manual differential will be performed. Immature Gran Absolute 0.01 0.00 - 0.04 x10(3)/[facility] Blood specimen (specimen) 05/29/2020 5:44 PM EDT 05/29/2020 5:56 PM EDT Narrative Resulting Agency Comment Spec In Lab Miguel [facility] ORDERABLE S [facility] [place] [address] * (ABNORMAL) Hemogram (05/29/2020 5:44 PM EDT) White Blood Cell 4.4 4.0 - 9.5 x10(3)/[facility] LABORATORY Red Blood Cell 3.78(L) 4.58 - 5.54 x10(6)/[facility] LABORATORY Hemoglobin 10.3(L) 13.7 - 16.5 gm/dL [facility] Hematocrit 32.2(L) 40.5 - 48.5 % [facility] Mean Cell Volume 85.2 82.9 - 93.1 fL [facility] Mean Cell Hemoglobin 27.2(L) 27.5 - 32.1 pg [facility] Mean Cell Hemoglobin Concentration 32.0 32.0 - 35.7 gm/dL [facility] Platelet 87(L) 145 - 357 x10(3)/mc L [facility] RDW Standard Deviation 43.4 36.0 - 45.0 fL [facility] RDW coefficient of variation 13.9(H) 11.4 - 13.8 % [facility] Mean Platelet Volume 12.5 7.6 - 12.9 fL [facility] NRBC% auto 0.0 % [facility] NRBC Absolute 0.000 0.000 - 0.000 x10(3)/mc L [facility] Blood specimen (specimen) 05/29/2020 5:44 PM EDT 05/29/2020 5:56 PM EDT Narrative Resulting Agency Comment Spec In Lab Miguel HARTLEY HEMATOLOGY ORDERABLE S [facility] [place] [address] * A1AT Genotype (05/29/2020 5:44 PM EDT) A1AT Genotype A1AT (SERPINA1) GENOTYPING RESULTS: S ALLELE: NOT DETECTED Z ALLELE: NOT DETECTED INTERPRETATION: The absence of both the S and Z alleles in this patient along with a separate test showing normal levels of A1AT protein (156 mg/dL) in this patient? s serum suggest this patient does not have an A1AT deficiency. Although the S and Z alleles were not detected by this test, the presence of other less common A1AT variants cannot be excluded. ??These results should be interpreted based on the complete clinical presentation which may warrant additional testing and/or a genetic consultation. METHOD: Two regions of interest in the serpin peptidase inhibitor, clade A (alpha-1 antiproteinase, antitrypsin), member 1 gene (SERPINA1), commonly alpha-1 anti-trypsin or A1AT) that are known to contain variant alleles resulting in the ? S? phenotype ([id number]:c.863 A>T; [id number]) and the ? Z? phenotype (c. 1096G>A; [id number]) are amplified and genotyped by two separate PCR assays each containing two primers for amplification and two probes for detection the normal and variant alleles. ??Genomic DNA used in this testing was isolated from peripheral blood. LIMITATIONS AND DISCLAIMERS: ??Although unlikely, rare variants or polymorphisms (known or unknown) have the potential to interfere with the performance of this test, producing false negative or false positive results. ??When genotyping results are not consistent with other clinical observations or test results, additional testing should be considered. This test was developed and its performance characteristics determined by the [facility] at [facility]. It has not been cleared or approved by the FDA. The laboratory is regulated under CLIA as qualified to perform high-complexity testing. This test is used for clinical purposes. It should not be regarded as investigational or for research. [facility] Comment: [VERIFIED DATE]06.02.20 Verified By:Pricilla BERG, Serene Branch Pathologist (Electronic Signature) Blood specimen (specimen) 05/29/2020 5:44 PM EDT 05/30/2020 10:33 AM EDT Narrative Resulting Agency Comment Spec In Lab Miguel HARTLEY CHEMISTRY ORDERABLES Performing Organization Address City/[facility] Co de Phone Number [facility] [place] [address] * A1AT Serum Concentration (05/29/2020 5:44 PM EDT) A1AT 156 90 - 200 mg/dL [facility] Blood specimen (specimen) 05/29/2020 5:44 PM EDT 05/29/2020 5:56 PM EDT Narrative Resulting Agency Comment Spec In Lab Miguel HARTLEY CHEMISTRY ORDERABLES Performing Organization Address City/[facility]/ZIP Co de Phone Number [facility] [place] [address] * Lipid Panel (Reflex Direct LDL) (05/29/2020 5:44 PM EDT) Cholesterol, Total 141 mg/dL [place] [facility] Comment: Lower Risk: <200 mg/dL Average Risk: 200-239 mg/dL Higher Risk: >qb=995 mg/dL Triglyceride 97 mg/dL [facility] Comment: Average Risk/Lower Risk: <150 mg/dL Borderline High Risk: 150-199 mg/dL High Risk: 200-499 mg/dL Very High Risk: >tz=376 mg/dL HDL Cholesterol 36 mg/dL [facility] Comment: Males: ?? Higher Risk: <40 mg/dL Females: ?? HIgher Risk: <50 mg/dL LDL Cholesterol 86 mg/dL [facility] Comment: Lowest Risk: <100 mg/dL Lower Risk: 100-129 mg/dL Borderline High Risk: 130-159 mg/dL High Risk: 160-189 mg/dL Very High Risk: >uy=895 mg/dL Cholesterol/HDL Ratio 3.9 ratio [facility] Lipid Interpretation See Note [facility] Comment: Lipid management should be guided by a patient? s ASCVD risk, goals and preferences. ACC/AHA Guidelines recommend high intensity statin if clinical ASCVD or LDL greater than or equal to 190 mg/dL. http://SparCode.com/ZOR-ERI-Nfcouckop Adults aged 40-75 with LDL 70-189 mg/dL should have their 10 year ASCVD risk estimated with the ACC/AHA ASCVD risk senior estimator http://tools.acc.org/MCGQG-Yijb-Ctkbrghev/ Statin should be discussed if risk greater than or equal to 7.5% in non-diabetics. With diabetes, moderate intensity statin is recommended if risk less than 7.5%, high intensity if risk greater than or equal to 7.5%. Annual lipid monitoring on statins is not necessary. Evaluate secondary causes of Triglycerides greater than 500 mg/dL or LDL greater than 190 mg/dL: See table 6 of ACC/AHA Guideline. Lifestyle modification is a critical component of ASCVD risk reduction. Blood specimen (specimen) 05/29/2020 5:44 PM EDT 05/29/2020 5:56 PM EDT Narrative Resulting Agency Comment Spec In Lab Dia Rico MD CHEMISTRY ORDERABLES [facility] [place] [place] [address] * (ABNORMAL) Hemoglobin A1c (05/29/2020 5:44 PM EDT) Hemoglobin A1c 5.7(H) 4.3 - 5.6 % [facility] Comment: Reference Range: 4.3 - 5.6% 5.7 - 6.4% - Increased Risk of Developing Diabetes Mellitus >= 6.5% - Consistent with diagnosis of Diabetes Mellitus In the absence of hyperglycemia (i.e. plasma glucose > 200 mg/dL) or classic symptoms of hyperglycemia a repeat measurement of HbA1c should be performed on a separate sample to confirm the diagnosis. Diagnosis and Classification of Diabetes Mellitus, Diabetes Care 2013; 36: Suppl. 1, N77-75 Estimated Average Glucose See note mg/dL [facility] Comment: Estimated Average Glucose not appropriate for patients over 70 years of age. eAG equivalents for HbA1c percentages: HbA1c(%) ?eAG(mg/dL) 6.0 ?126 6.5 ?140 7.0 ?154 7.5 ?169 8.0 ?183 8.5 ?197 9.0 ?212 9.5 ?226 10.0 ? 240 Limitations: The eAG calculation has not been validated on women, individuals below 18 years old and above 70 years old, and individuals with hemoglobinopathies. Additional resources are available on the ADA website. Juan WARD, Deedee J, Alexandra R, et al. ??Translating the A1C assay into estimated average glucose values. ??Diabetes Care 2008:31(8):2076-9678. Blood specimen (specimen) 05/29/2020 5:44 PM EDT 05/29/2020 5:56 PM EDT Narrative Resulting Agency Comment Spec In Lab Dia Rico MD CHEMISTRY ORDERABLES Performing Organization Address [facility] de Phone Number [facility] [place] [address] * Smooth Muscle Antibody (05/29/2020 5:44 PM EDT) Sm Muscle Ab (MARCH) Negative Negative [facility] Comment: ADDITIONAL INFORMATION This test was developed and its performance characteristics determined by [facility] in a manner consistent with CLIA requirements. This test has not been cleared or approved by the U.S. Food and Drug Administration. Test Performed by: [facility] [place] [address] Client Success Specialist: Cuba Stack M.D. Ph.D.; CLIA# [id number] Blood specimen (specimen) 05/29/2020 5:44 PM EDT 05/30/2020 8:42 AM EDT Narrative Resulting Agency Comment Spec In Lab Dia Rico MD LAB SEND OUT ORDERAB LES Performing Organization Address [facility] de Phone Number [facility] [place] [address] * Mitochondrial Antibody, M2 (05/29/2020 5:44 PM EDT) Mitochon Ab (MARCH) <0.1 <0.1 (Negative) [facility] Comment: Test Performed by: [place] [address] Client Success Specialist: Cuba Stack M.D. Ph.D.; IA# [id number] Blood specimen (specimen) 05/29/2020 5:44 PM EDT 05/30/2020 8:42 AM EDT Narrative Resulting Agency Comment Spec In Lab Dia Rico MD LAB SEND OUT ORDERAB LES Performing Organization Address City/[facility]/ZIP Co de Phone Number [facility] [place] [address] * Hepatitis B Core Antibody, Total (05/29/2020 5:44 PM EDT) Hepatitis B Core Antibody Negative Negative [facility] Blood specimen (specimen) 05/29/2020 5:44 PM EDT 05/29/2020 5:56 PM EDT Narrative Resulting Agency Comment Spec In Lab Dia Rico MD CHEMISTRY ORDERABLES Performing Organization Address [facility] Co de Phone Number [facility] [place] [address] * Hepatitis B Surface Antibody (05/29/2020 5:44 PM EDT) Pathologist [facility] Hepatitis B Surface Antibody, Quantitative <3.5 IU/L [facility] Comment: HepB Surface Ab Quant: Unvaccinated: < 8.5 IU/L Vaccinated: > 11.5 IU/L Hepatitis B Surface Antibody Negative [facility] Comment: Patient is presumed to be not vaccinated or immune to HBV infection. Expected Results: Vaccinated: Positive Unvaccinated: Negative Blood specimen (specimen) 05/29/2020 5:44 PM EDT 05/29/2020 5:56 PM EDT Narrative Resulting Agency Comment Spec In Lab Dia Rico MD CHEMISTRY ORDERABLES Performing Organization Address [facility] Co de Phone Number [facility] [place] [address] * Hepatitis A Antibody, Total (05/29/2020 5:44 PM EDT) Hepatitis A ANTIBODY, TOTAL Negative Negative [facility] Blood specimen (specimen) 05/29/2020 5:44 PM EDT 05/29/2020 5:56 PM EDT Narrative Resulting Agency Comment Spec In Lab Dia Rico MD CHEMISTRY ORDERABLES Performing Organization Address [facility] Co de Phone Number [facility] [place] [address] * (ABNORMAL) Gamma GT (05/29/2020 5:44 PM EDT) [facility] Gamma Glutamyl Transferase 168(H) 8 - 61 unit/L [facility] Blood specimen (specimen) 05/29/2020 5:44 PM EDT 05/29/2020 5:56 PM EDT Narrative Resulting Agency Comment Spec In Lab Dia Rico MD CHEMISTRY ORDERABLES Performing Organization Address [facility] Co de Phone Number [facility] [place] [address] * AFP tumor marker (05/29/2020 5:44 PM EDT) [facility] Alpha Fetoprotein 3.0 <=8.3 ng/mL [facility] Blood specimen (specimen) 05/29/2020 5:44 PM EDT 05/29/2020 5:56 PM EDT Narrative Resulting Agency Comment Spec In Lab Dia Rico MD CHEMISTRY ORDERABLES Performing Organization Address [facility] Co de Phone Number [facility] [place] [address] * (ABNORMAL) Prothrombin Time (05/29/2020 5:44 PM EDT) [facility] Prothrombin Time 13.9(H) 9.4 - 12.5 sec [facility] International Normalization Ratio 1.2 [facility] Comment: An INR <2.0 indicates [...] depending on clinical circumstances. Blood specimen (specimen) 05/29/2020 5:44 PM EDT 05/29/2020 5:56 PM EDT Narrative Resulting Agency Comment Spec In Lab Dia Rico MD HEMATOLOGY ORDERABLE S [facility] [place] [address] * (ABNORMAL) Comprehensive metabolic panel (non-fasting) (05/29/2020 5:44 PM EDT) Glucose 98 65 - 199 mg/dL [facility] Comment:Diabetes: >=200 mg/d L plus symptoms Blood Urea Nitrogen 16 10 - 20 mg/dL [facility] Creatinine 1.36 0.80 - 1.50 mg/dL [facility] Sodium 138 135 - 145 mmol/L [facility] Potassium 4.4 3.5 - 5.0 mmol/L [facility] Comment: Please note: ??Patients with WBC >100,000 may have falsely elevated Potassium levels. ??For accurate Potassium quantification in these patients send serum separator tube (gold top) for subsequent determinations. ??Contact the Clinical Chemistry Laboratory if there are any questions. Chloride 107 98 - 107 mmol/L [facility] Carbon Dioxide 22 22 - 31 mmol/L [facility] Anion Gap 9 5 - 15 mmol/L [facility] Calcium 8.9 8.5 - 10.5 mg/dL [facility] Protein, Total 8.3(H) 6.1 - 8.0 gm/dL [facility] Albumin 3.5 3.2 - 5.2 gm/dL [facility] Aspartate Aminotransferase 27 0 - 39 unit/L [facility] Alanine Aminotransferase 18 0 - 55 unit/L [facility] Alkaline Phosphatase 132(H) 40 - 130 unit/L [facility] Bilirubin, Total 0.6 0.2 - 1.3 mg/dL [facility] Est Glomerular Filtration Rate 50(L) >=60 mL/min/1. 73 m?? [facility] Comment: The eGFR was calculated using the CKD-EPI equation. As with all creatinine based estimates of kidney function, eGFR values calculated with the CKD-EPI equation are not accurate in patients with acute kidney failure, extremes of body mass or the acutely ill. [email or web address] [place]nkf eGFR 58(L) >=60 mL/min/1. 73 m?? [facility] Comment: The eGFR was calculated using the CKD-EPI equation. As with all creatinine based estimates of kidney function, eGFR values calculated with the CKD-EPI equation are not accurate in patients with acute kidney failure, extremes of body mass or the acutely ill. [email or web address] [place] [place] Blood specimen (specimen) 05/29/2020 5:44 PM EDT 05/29/2020 5:56 PM EDT Narrative Resulting Agency Comment Spec In Lab Dia Rico MD CHEMISTRY ORDERABLES [facility] [place] [address] * [id number] (05/29/2020 4:00 PM EDT) Narrative Miguel Hinds PA - 05/29/2020 4:00 PM EDT Miguel Hinds PA ? 05/29/2020 ??9:48 PM [facility] Liver Fibrosis Assessment Report Indication: ?? Concern for hepatic cirrhosis with hypoalbuminemia, thrombocytopenia, and splenomegaly reported on imaging Performed by: ??NAEEM Gaston Procedure: Vibration Controlled Transient Elastography (VCTE) or Fibroscan [place] Protocol: Patient's identity, procedure and site were verified, confirmatory pause performed. Discussed procedure including risks and potential complications. Questions answered. Patient verbalizes understanding and wishes to proceed with Fibroscan assessment. Patient was placed in the supine position with right arm in maximum abduction to allow optimal exposure of right lateral abdomen. Patient was briefly assessed. Testing was performed in the mid-axillary location. 50Hz Shear Wave pulses were applied and the resulting Shear Wave and Propagation Speed was detected with a 3.5MHz ultrasonic signal, using the Fibroscan probe. Skin to liver capsule distance and liver parenchyma were accessed during the entire examination with the Fibroscan probe. Patient was instructed to breathe normally and abstain from sudden movements during the procedure. At least ten Sheer Waves were produced; individual measurements of each Shear Wave were calculated. Patient tolerated the procedure well with no complications. 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 Dia Rico MD PROCEDURE/MINOR SURG ICAL ORDERABLES documented in this encounter Visit Diagnoses Diagnosis Hepatic cirrhosis, unspecified hepatic cirrhosis type, unspecified whether ascites present- Primary Hepatic steatosis Other chronic nonalcoholic liver disease Elevated alkaline phosphatase level Other nonspecific abnormal serum enzyme levels Hematochezia Blood in stool Hepatic cirrhosis, unspecified hepatic cirrhosis type, unspecified whether ascites present documented in this encounter Care Teams Freight Flow Sales Leader Relationship Specialty Start Date End Date Edgar Marie MD PCP - General Family Medicine 08/30/16 documented as of this encounter
--- OUTSIDE RECORDS SUMMARY | 2024-09-03 17:52 | XMS_ITS | Encounter Summary ---
Author Organization Replaced By [facility] [place] [address] Care Team Providers Care Warehouse Hand Name Role Phone Edgar Marie MD Primary Care Provider [phone] Encounter Details Date Type Department Care Team (Late st Contact Info) Description 06/15/2020 Telephone [place] [phone] Marilee Monaco, [facility] Social History Tobacco Use Types [...] * Telephone Encounter - Marilee Monaco - 06/15/2020 12:43 PM EDT LVM X2 to schedule. documented in this encounter Plan of Treatment Not on file documented as of this encounter Visit Diagnoses Not on filedocumented in this encounter Care Teams Warehouse Hand Relationship Specialty Start Date End Date Edgar Marie MD PCP - General Family Medicine 08/30/16 documented as of this encounter
--- OUTSIDE RECORDS SUMMARY | 2024-09-03 17:52 | XMS_ITS | Encounter Summary ---
Author Organization [facility] [address] Care Team Providers Care Sanitation Superintendent Name Role Phone Edgar Marie MD Primary Care Provider [phone] Encounter Details Date Type Department Care Team ([facility] st Contact Info) Description 06/08/2020 Telephone [place] [phone] Miguel Hinds PA [address] [place] [address] [place] [address] Social History Tobacco Use Types Packs/Day Years [...] encounter Miscellaneous Notes * Telephone Encounter - Miguel Hinds PA - 06/08/2020 9:39 AM EDT Attempted to call pt to review lab results from 05/29. Will send letter, also asking for him to callGI office to arrange EGD which is not yet set-up. DG documented in this encounter Plan of Treatment Not on file documented as of this encounter Visit Diagnoses Not on filedocumented in this encounter Care Teams Sanitation Superintendent Relationship Specialty Start Date End Date Edgar Marie MD PCP - General Family Medicine 08/30/16 documented as of this encounter
--- OUTSIDE RECORDS SUMMARY | 2024-09-03 17:52 | XMS_ITS | Encounter Summary ---
Author Organization [facility] Address [facility] [place] [address] Care Team Providers Care Hand Model Name Role Phone Edgar Marie MD Primary Care Provider [phone] Reason for Visit * Reason Comments Radiation Follow-up prostate cancer Encounter Details Date Type Department Care Team (Late st Contact Info) Description 08/27/2018 9:00 AM EDT Office Visit Radiation Oncology at [address] [phone] Juli Silva APRN [address] [place] [address] [place] [address] Malignant neoplasm of prostate Social History Tobacco Use Types Packs/Day Years [...] Sign Reading Time Taken Comments Blood Pressure 164/72 08/27/2018 8:38 AM EDT Pulse 77 08/27/2018 8:38 AM EDT Temperature 36.8 ??C (98.2 ??F) 08/27/2018 8:38 AM ED T Respiratory Rate 18 08/27/2018 8:38 AM EDT Oxygen Saturation 98% 08/27/2018 8:38 AM EDT Inhaled Oxygen Concentration - - Weight 77.3 kg (170 lb 6.4 oz) 08/27/2018 8:38 A M EDT Height 162.6 cm (5' 4) 08/27/2018 8:38 AM EDT Body Mass Index 29.25 08/27/2018 8:38 AM EDT documented in this encounter Patient Instructions * Patient Instructions* Juli Silva APRN - 08/27/2018 9:00 AM EDT Laboratory Studies: Date PSA Testosterone 08/04/2018 0.3 08/18/2017 0.2 08/06/2016 0.40 08/18/2015 0.40 08/04/2014 0.50 0.50 02/11/2013 0.68 08/14/2012 0.85 02/26/2012 0.88 375 08/29/2011 1.03 375 02/26/2011 2.24 08/11/2010 2.67 05/03/2010 4.67 402 (range 181-772) 02/01/2010 4.42 10/23/2009 5.3 10/20/2008 8.2 Vitals Office Visit from 08/27/2018 in Radiation Oncology at [facility] Weight 77.3 kg (170 lb 6.4 oz) Height 162.6 cm (5' 4) BSA (Calculated - sq m) 1.87 sq meters BMI (Calculated) 29.25 Temp 36.8 ??C (98.2 ??F) Temp src Oral Heart Rate 77 Heart Rate Source NIBP Resp 18 BP 164/72 BP Location Left arm Patient Position Sitting SpO2 98 % documented in this encounter Progress Notes * Juli Silva APRN - 08/27/2018 9:00 AM EDT Patient ID: Marleny Martin is a 78 y.o. male who is in radiation oncology clinic today for regular follow up. He was treated with external beam radiation therapy for stage 2 adenocarcinoma of the prostate. He completed treatment 08/08/2009. He was last seen in clinic a year ago at which time his PSA was stable and there was ALESSANDRO. HPI Mr Martin had a PSA checked on November 02, 2008, which proved elevated at 6.3. Repeat PSA came backat 8.2. This prompted biopsy, which was performed by Dr. Escalante on March 27, 2009. Pathology demonstrated [place] score 4+3=7/10 tumor involving 30% of one needle biopsy core taken from the left apex. Also, a nodule by ultrasound was seen at the right base, which was biopsied and found to contain a small focus of [place] score 3+4=7/10 tumor involving about 2% of that needle core biopsy. All other sampled areas of the prostate gland showed no evidence for tumor. Ultrasound measured volume was 24 mL. He elected to be treated with external beam radiation and he received 7920 cGy at the [facility]. Treatment was completed on 08/08/2009 Prostate cancer history and treatment summary reviewed with patient 08/18/2014--see after visit summary. Prostate Cancer Notes 08/26/2013 Date of Presentation [...] required Post Primary Therapy - Elder Date 08/18/2017 Post Primary Therapy - Elder PSA 0.20 Problem List: 1. Adenocarcinoma of the prostate. [id number]. 30% of left apex core had David [...] in the 7 Arthritis feet--treated with tylenol 8. Radiation proctitis 9. Chronic renal failure--02/12/2016-- creatinine 1.69 and GFR of 39.98 10 08/19/2016--abnormal chest XR with prominent R hilum -PCP ordered chest CT Patient Active Problem List Diagnosis Code ??? Prostate cancer C61 ??? 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 CKD (chronic kidney disease) N18.9 Past Surgical History: Procedure Laterality Date ??? STAPEDES SURGERY bilateral No Known Allergies Medications 08/27/18 0846 Medication Sig Taking? LOSARTAN POTASSIUM (COZAAR ORAL) Yes hydrochlorothiazide (HYDRODIURIL) 25 mg tablet Yes albuterol (PROAIR HFA) 90 mcg/Actuation inhaler Yes aspirin 325 mg tablet Yes CALCIUM CARBONATE/VITAMIN D3 (CALCIUM 600 WITH VITAMIN D3 ORAL) Yes Social History Social History ??? Marital status: Spouse name: N/A ??? Number of children: N/A ??? Years of education: N/A Occupational History ??? Not on file. Social History Main Topics ??? Smoking status: Never Smoker ??? Smokeless tobacco: Never Used ??? Alcohol use No ??? Drug use: No ??? Sexual activity: No Other Topics Concern ??? Not on file Social History Narrative Patient indicates that he has no regular contact with his stepchildren--only if he runs into them around town He is unhappy about this. 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 He enjoys his [employer] [place] Advance directive: Patient wants his step daughters to be his health care agent. They are aware andhe has made plans to get AD done. He was asked to bring copy to clinic. Patient indicates that he has no regular contact with his stepchildren--only if he runs into them around town or if he needs concrete help. 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 He enjoys his [employer] [place] Interim History: Mr Martin reports that he has been well. Since he was seen in clinic he was hospitalized for pneumonia. He has received his flu immunization for this year. Friday he had PFT done at [facility]. He also has developed numbness of several fingers involving his right hand. He has been referred by his PCP to be evaluated for carpal tunnel. He reports that he has otherwise been generally well and is happy to be busy. He reports no concerning late effects from his previous XRT. His bowels are regular and he has not had any recurrence of rectal bleeding. He has no abdominal pain. He continues with arthritis pain at times-- on and off for which he takes aspirin as needed. He denies any urinary problems. His IPSS score is stable and remains 2. He indicates that he is very pleased with his urinary function. He denies dysuria, hematuria and incontinence. International Prostate Symptom Score Total Score__2 0 1 2 3 4 5 Not [...] Every 2 hours Every hour nocturia X He is not sexually active Q - Expanded Prostate Cancer Index Composite For Clinical Practice (Epic-Cp) ? Question 08/27/2018 ??9:15 AM EDT - Filled by Juli Silva APRN ? Urinary function problem No Problem ? Urinary control Total control ? # of pads used per day None ? Urinary dripping/leakage problem No problem ? 5. How big a problem, if any, has each of the following been for you? Pain or burning with urination No problem ? Weak urine stream/incomplete bladder emptying No problem ? Need to urinate frequently Small problem ? 6. How big a problem, if any, has each of the following been for you? Rectal pain or urgency of bowel movements No problem ? Increased frequency of your bowel movements No problem ? Overall problems with your bowel movements No problem ? 10. How big a problem, if any, has each of the following been for you? Hot flashes or breast tenderness/enlargement No problem ? Feeling depressed No problem ? Lack of energy No problem ? Urinary Incontinence Symptom Score (range: 0 - 12) 0 ? Urinary Irritation/Obstructive Symptom Score (range: 0 - 12) 2 ? Bowel Symptom Score (range: 0 - 16) 0 ? Vitality/Hormonal Symptom Score (range: 0 - 12) 0 ? Overall Prostate Cancer QOL Score (range: 0 - 60) 2 ? Review of Systems Constitutional: Negative. Negative for activity change, appetite change, fatigue, fever and unexpected weight change. 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 HENT: Negative. Eyes: Negative. Respiratory: Negative. Negative for cough, chest tightness, shortness of breath and wheezing. Mild ERICKSON Had pneumonia over last winter This last Friday had PFT done at [facility] Cardiovascular: Negative. Negative for chest pain, palpitations and leg swelling. Gastrointestinal: Negative. Negative for abdominal distention, abdominal pain, anal bleeding, bloodin stool, constipation, diarrhea, nausea and vomiting. 1-3 BM early am. No hematochezia at this time Genitourinary: Negative. Negative for decreased urine volume, difficulty urinating, dysuria, enuresis, flank pain, frequency, hematuria and urgency. See IPSS and interim history Musculoskeletal: Positive for arthralgias. Negative for back pain and joint swelling. Numbness several fingers of his right hand --PCP made referral to orthopedics Skin: Negative. Neurological: Negative. Negative for dizziness, weakness, light-headedness, numbness and headaches. Hematological: Negative. Psychiatric/Behavioral: Negative. KPS: 100 IPSS 2 BETH--not sexually active Vitals Office Visit from 08/27/2018 in Radiation Oncology at [facility] Weight 77.3 kg (170 lb 6.4 oz) Height 162.6 cm (5' 4) BSA (Calculated - sq m) 1.87 sq meters BMI (Calculated) 29.25 Temp 36.8 ??C (98.2 ??F) Temp src Oral Heart Rate 77 Heart Rate Source NIBP Resp 18 BP 164/72 BP Location Left arm Patient Position Sitting SpO2 98 % Objective: Physical Exam Constitutional: He is oriented to person, place, and time. He appears well- developed and well-nourished. No distress. HENT: Head: Normocephalic and atraumatic. Eyes: Conjunctivae and EOM are normal. Right eye exhibits no discharge. Left eye exhibits no discharge. No scleral icterus. Neck: Normal range of motion. Neck supple. Cardiovascular: Normal rate, regular rhythm and normal heart sounds. Exam reveals no gallop and no friction rub. No murmur heard. Pulmonary/Chest: Effort normal. No respiratory distress. He has no decreased breath sounds. He has no wheezes. He has rales in the right lower field and the left lower field. He exhibits no tenderness. Abdominal: Soft. Bowel sounds are normal. He exhibits no distension. There is no hepatomegaly. There is no tenderness. There is no rebound and no CVA tenderness. Genitourinary: Genitourinary Comments: Rectal: Patient declined Musculoskeletal: Normal range of motion. He exhibits no edema or tenderness. No spine tenderness Lymphadenopathy: Head (right [...] normal. Skin: Skin is warm and dry. No rash noted. He is not diaphoretic. No erythema. No pallor. Psychiatric: He has a normal mood and affect. His behavior is normal. Judgment and thought content normal. Vitals reviewed. Laboratory Studies: Date PSA Testosterone 08/04/2018 0.3 08/18/2017 0.2 08/06/2016 0.40 08/18/2015 0.40 08/04/2014 0.50 0.50 02/11/2013 0.68 08/14/2012 0.85 02/26/2012 0.88 375 08/29/2011 1.03 375 02/26/2011 2.24 08/11/2010 2.67 05/03/2010 4.67 402 (range 181-772) 02/01/2010 4.42 10/23/2009 5.3 10/20/2008 8.2 Assessment and Plan: Adenocarcinoma of the prostate.[id number]. 30% of left apex core had [place] 4+3 and 2% of right base core with [place] 3+4. SAMIR-, Pretreatment PSA of 8.2. Mr Martin was treated with external beam radiation 79.2 Gy completed on 08/08/2009. Patient PSA remains low and is 0.3. He has no concerning late effects from treatment. Clinically and functionally he is doing well. H/O hematochezia: Patient had a normal colonoscopy in March 2011. Patient will call if bleeding occurs and is persistent. He was encouraged to use stool softener [...] Priority Date/Time Associated Diagnosis Comments LAB SCAN 08/04/2018 12:00 AM EDT documented in this encounter Results * SCAN DOC: LAB (08/04/2018 12:00 AM EDT) Narrative 08/04/2018 12:00 AM EDT Ordered by an unspecified provider. Scanning Provider MEDIA MGR SCAN EXT O RDR/RSLT documented in this encounter Visit Diagnoses Diagnosis Malignant neoplasm of prostate documented in this encounter Care Teams Hand Model Relationship Specialty Start Date End Date Edgar Marie MD PCP - General Family Medicine 08/30/16 documented as of this encounter
--- OUTSIDE RECORDS SUMMARY | 2024-09-03 17:52 | XMS_ITS | Encounter Summary ---
Author Organization [facility] Address [facility] [place] [address] Care Team Providers Care Stable Attendant Name Role Phone Abeba Altman [employer] Primary Care Provider + Reason for Visit * Reason Comments Radiation Follow-up prostate cancer Encounter Details Date Type Department Care Team (Late st Contact Info) Description 02/25/2013 2:00 PM EDT Follow-Up Radiation Oncology at [address] [phone] Juli Silva [employer] [address] [place] [address] [place] [address] Prostate cancer (Primary Dx) Discharge [...] Sign Reading Time Taken Comments Blood Pressure 138/80 02/25/2013 2:16 PM EDT Pulse 81 02/25/2013 1:52 PM EDT Temperature 36.5 ??C (97.7 ??F) 02/25/2013 1:52 PM ED T Respiratory Rate 20 02/25/2013 1:52 PM EDT Oxygen Saturation 98% 02/25/2013 1:52 PM EDT Inhaled Oxygen Concentration - - Weight 81.2 kg (179 lb) 02/25/2013 1:52 PM EDT Height - - Body Mass Index 30.19 03/14/2011 9:04 AM EDT documented in this encounter Patient Instructions * Patient Instructions* Juli Silva APRN - 02/25/2013 1:54 PM EDT Mr Martin you are doing well with a decreasing PSA . We will se you again in six months Laboratory Studies: Date PSA Testosterone 02/11/2013 0.68 08/14/2012 0.85 02/26/2012 0.88 375 08/29/2011 1.03 375 02/26/2011 2.24 08/11/2010 2.67 05/03/2010 4.67 402 (range 181-772) 02/01/2010 4.42 10/23/2009 5.3 10/20/2008 8.2 Recent Review Flowsheet Data View Complete Flowsheet Oncology Vitals 02/25/2013 Weight 81.194 kg Temp 97.7 Temp src 1 Pulse 81 Heart Rate Source Right;NIBP Resp 20 BP 152/104 BP Location Right arm Patient Position Sitting SpO2 98 Pain Level 0 Oncology Vitals 02/25/2013 Height (cm) Weight (kg) 81.194 kg BSA (m2) documented in this encounter Progress Notes * Juli Silva APRN - 02/25/2013 1:53 PM EDT Subjective: Patient ID: Marleny Martin is a 72 y.o. male who is in radiation oncology [...] Escalante on March 27, 2009. Pathology demonstrated [place] score 4+3=7/10 tumor involving 30% of one needle biopsy core taken from the left apex. Also, a nodule by ultrasound was seen at the right base, which was biopsied and found to contain a small focus of [place] score 3+4=7/10 tumor involving about 2% of that needle core biopsy. All other sampled areas of the prostate gland showed no evidence for tumor. Ultrasound measured volume was 24 mL. He elected to be treated with external beam radiation and he received 7920 cGy at the [facility]. Treatment was completed on 08/08/2009 Problem List: 1. Adenocarcinoma of the prostate. [id number]. 30% of left apex core had David 4+3 and 2% of right base core with [place] 3+4. SAMIR-, Pretreatment PSA of 8.2. Radiation [...] well. 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 He works about 5 hours a day four days a week.He also is in a [employer] league and enjoys this activity and the socialization very much.He has also resumed work at the [employer] where he works on weekends. . He has just gotten a new cat Bonilla whom he is enjoying very much. About one month ago had one pisode of clots of blood when he moved his bowels which then resolved. He was straining at the time. He reports that he does not have a lot of fiber in diet.. His bowels generally move three times in am He has no abdominal pain. He continues with arthritis pain at times-- on and off for which he takes tylenol once a day which is effective. He denies any urinary problems. His IPSS score is 2. He denies dysuria, hematuria and incontinence. International Prostate Symptom Score Total Score__2_ 0 1 2 3 4 5 Not [...] Every 2 hours Every hour nocturia X The previous problem that he had with his insurance which made it impossible for him to fill his medications has been resolved Review of Systems Constitutional: Negative for fever, [...] knees are feeling better . Skin: Negative. Neurological: Negative for dizziness, weakness, light-headedness, numbness and headaches. Hematological: Negative. Psychiatric/Behavioral: Negative. Filed Vitals: 02/25/13 1352 02/25/13 1416 BP: 152/104 138/80 Pulse: 81 Temp: 36.5 ??C (97.7 ??F) TempSrc: Oral Resp: 20 Weight: 81.194 kg (179 lb) SpO2: 98% KPS 100 Objective: Physical Exam Vitals reviewed. Constitutional: He is oriented to person, place, and time. He appears well- developed and well-nourished. No distress. HENT: Head: Normocephalic and atraumatic. Eyes: Conjunctivae and EOM are normal. No scleral icterus. [...] no guarding and no CVA tenderness. Genitourinary: Prostate normal and penis normal. Guaiac negative stool. Rectal: no external lesions, no fissure, sphincter tone is good. no tenderness, masses. Prostate flat, smooth, non-tender, without nodularity. Guaiac negative Musculoskeletal: Normal range of motion. He exhibits no edema and no tenderness. No spine tenderness Lymphadenopathy: He has no cervical adenopathy. He has no axillary adenopathy. Right: No inguinal and no supraclavicular adenopathy present. Left: No inguinal and no supraclavicular adenopathy present. Neurological: He is alert and oriented to person, place, and time. He exhibits normal muscle tone. Coordination normal. Skin: Skin is warm and dry. No rash noted. He is not diaphoretic. No erythema. No pallor. Skin is very dry Psychiatric: He has a normal mood and affect. His behavior is normal. Judgment and thought content normal. Laboratory Studies: Date PSA Testosterone 02/11/2013 0.68 08/14/2012 0.85 02/26/2012 0.88 375 08/29/2011 1.03 375 02/26/2011 2.24 08/11/2010 2.67 05/03/2010 4.67 402 (range 181-772) 02/01/2010 4.42 10/23/2009 5.3 10/20/2008 8.2 Assessment and Plan: Adenocarcinoma of the prostate. Patient PSA has declined indicating excellent biochemical response to radiation therapy and clinically there is ALESSANDRO. H/O hematochezia: Patient had a normal colonoscopy in March 2011. Patient will call if bleeding increases. He was encouraged to use stool softener to prevent hard stool. and straining. We will see patient again in six months for a repeat PSA , and clinical evaluation. He is to call if he has any questions of concerns in the interim documented in this encounter Miscellaneous Notes * Advance Care Plan Note - Juli Silva APRN - 02/25/2013 2:24 PM EDT ADVANCE CARE PLANNING NOTE I. WHEN TO USE THIS FORM: This Advance Care Planning Note should be used for patients with decisional capacity who have not executed advance directives, such as a Durable Power of Golf Course Superintendent for Health Care. DETERMINATION OF CAPACITY The basis for decisional capacity entails all of the following criteria. The patient, Marleny Martin,must be able (in a general way) to understand: ?? His condition ?? Treatment alternatives ?? Potential benefits and risks of proposed treatments/interventions The patient has the capacity to make decisions: Yes If the patient does not have decisional capacity, go no further. This form cannot be used. II. DESIGNATION OF DECISION MAKER The patient, Marleny Martin, expresses the following preference: Designation of health care agent: The patient, Marleny Martin, identifies the following individual toserve as a health care agent, authorized to speak for the individual in making medical treatment decisions in the future if he/she is unable to speak for him/herself. Name:Claribel Gama Relationship to patient: step-daughter OTHER COMMENTS: Mr Mario indicates that his stepdaughters know his wishes and values and preferences. He believes and AD was done he will verify with his step daughter and request a copy for our records documented in this encounter Plan of Treatment Not on file documented as of this encounter Visit Diagnoses Diagnosis Prostate cancer- Primary Malignant neoplasm of prostate documented in this encounter Care Teams Stable Attendant Relationship Specialty Start Date End Date Abeba Altman APRN PCP - General 10/09/10 08/29/16 documented as of this encounter
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
--- OUTSIDE RECORDS SUMMARY | 2024-09-03 17:52 | XMS_ITS | Encounter Summary ---
Author Organization [facility] Address [facility] [place] [address] Care Team Providers Care Supervisor Name Role Phone Abeba Altman WASTE REMOVALIST Primary Care Provider + Reason for Visit * Reason Comments Radiation Follow-up Encounter Details Date Type Department Care Team ([facility] st Contact Info) Description 08/29/2011 9:00 AM EDT Follow-Up Radiation Oncology at [address] [phone] Juli Silva [address] [place] [address] Prostate cancer (Primary Dx) Discharge [...] Sign Reading Time Taken Comments Blood Pressure 138/90 08/29/2011 8:34 AM EDT Pulse 69 08/29/2011 8:34 AM EDT Temperature 36.3 ??C (97.4 ??F) 08/29/2011 8:34 AM ED T Respiratory Rate 18 08/29/2011 8:34 AM EDT Oxygen Saturation 96% 08/29/2011 8:34 AM EDT Inhaled Oxygen Concentration - - Weight 78.5 kg (173 lb 1 oz) 08/29/2011 8:34 AM EDT Height - - Body Mass Index 29.19 03/14/2011 9:04 AM EDT documented in this encounter Progress Notes * Juli Silva, WASTE REMOVALIST - 08/29/2011 8:48 AM EDT Subjective: Patient ID: Marleny Martin is a 71 y.o. male who is in radiation oncology clinic today for regular follow up. He was treated with external beam radiation therapy for stage 2 adenocarcinoma of the prostate. He completed treatment 08/08/2009. He was last seen in clinic on 03/14/2011 at which time his PSAhad declined to 2.24. . HPI Mr Martin had a PSA checked [...] found to contain a small focus of [place] score 3+4=7/10 tumor involving about 2% of that needle core biopsy. All other sampled areas of the prostate gland showed no evidence for tumor. Ultrasound measured volume was 24 mL. He elected to be treated with external beam radiation and he received 7920 cGy at the [facility]. Treatment was completed on 08/08/2009 Problem List: 1. Adenocarcinoma of the prostate. [id number]. 30% of left apex core had David [...] in the 7 Arthritis feet--treated with tylenol Current outpatient prescriptions ordered prior to encounter Medication Sig Dispense Refill ??? LOSARTAN POTASSIUM (COZAAR ORAL) ??? hydrochlorothiazide (HYDRODIURIL) 25 mg tablet ??? albuterol-ipratropium (COMBIVENT) 18-103 mcg/Actuation inhaler ??? albuterol (PROAIR HFA) 90 mcg/Actuation inhaler ??? aspirin 325 mg tablet ??? loperamide (IMODIUM A-D) 2 mg tablet ??? CALCIUM CARBONATE/VITAMIN D3 (CALCIUM 600 WITH VITAMIN D3 ORAL) ??? acetaminophen (TYLENOL) 325 mg tablet ??? hydrocortisone (ANUSOL-HC) [address] 1 suppository rectally 2 times daily for 10 days. 12 suppository 3 Interim History: Mr Martin reports that he is doing well at this time. 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 In 2010 he was given an award by the local [employer] for his volunteer work. He also is in a [employer] andenjoys this activity and the socialization very much. He denies any urinary problems. His IPSS score Is 2. He denies dysuria, hematuria and incontinence. International Prostate Symptom Score Total Score__2__ Not at all Less than one time [...] times a day with no difficulty. He denies any hematochezia and melena at this time and is no longer requiring the use of the anusol HC. He denies constipation and diarrhea. Review of Systems Constitutional: Negative for fever, activity change, appetite change, fatigue and unexpected weightchange. HENT: Negative. Eyes: Negative. Respiratory: Negative for cough, chest tightness and shortness of breath. Cardiovascular: Negative. Gastrointestinal: Negative for nausea, vomiting, abdominal pain, diarrhea, constipation, blood in stool and abdominal distention. 1-3 BM early am. No hematochezia Genitourinary: Negative for dysuria, urgency, frequency, hematuria, flank pain, decreased urine volume, enuresis and difficulty urinating. Musculoskeletal: Negative for back pain, joint swelling and arthralgias. Feet cramp at night for years Skin: Negative. Neurological: Negative for dizziness, weakness, numbness and headaches. Hematological: Negative. Psychiatric/Behavioral: Negative. Active with the [facility] and this gives him satisfaction Filed Vitals: 08/29/11 0834 BP: 138/90 Pulse: 69 Temp: 36.3 ??C (97.4 ??F) Resp: 18 Objective: Physical Exam Constitutional: He is oriented to person, place, and time. He appears well- developed and well-nourished. HENT: Head: Normocephalic and atraumatic. Eyes: No scleral icterus. Neck: Neck supple. Cardiovascular: Normal rate, regular rhythm and normal heart sounds. Exam reveals no gallop and no friction rub. No murmur heard. Pulmonary/Chest: Effort normal and breath sounds normal. No respiratory distress. He has no wheezes. He has no rales. He exhibits no tenderness. Abdominal: Soft. Bowel sounds are normal. He exhibits no distension and no mass. No tenderness. He has no rebound and no guarding. Genitourinary: Prostate normal and penis normal. Guaiac positive stool. Rectal: no external lesions, no fissure, sphincter tone is good. no tenderness, masses. Prostate large, not globular, smooth, non-tender, without nodularity. Guaiac positive Musculoskeletal: Normal range of motion. He exhibits no edema and no tenderness. Lymphadenopathy: He has no cervical adenopathy. Neurological: He is alert and oriented to person, place, and time. He exhibits normal muscle tone. Coordination normal. Skin: Skin is warm and dry. No rash noted. He is not diaphoretic. No erythema. No pallor. Psychiatric: He has a normal mood and affect. His behavior is normal. Judgment and thought content normal. Laboratory Studies: Date PSA Testosterone 08/29/2011 1.03 375 02/26/2011 2.24 08/11/2010 2.67 05/03/2010 4.67 402 (range 181-772) 02/01/2010 4.42 10/23/2009 5.3 10/20/2008 8.2 Assessment and Plan: Adenocarcinoma of the prostate. Patient PSA has declined Clinically there is ALESSANDRO. + guaiac: Patient had a normal colonoscopy in March. Patient will call if bleeding increases. He has a Rx for Anusol HC which he was instructed to use if he has BRB rectally. We will see patient again in six months for a repeat PSA , and clinical evaluation. He is to call if he has any questions of concerns in the interim documented in this encounter Procedure Notes * Provider, Scanning - 09/02/2011 8:55 AM EDTAssociated Order(s): SCAN DOC: LAB documented in this encounter Plan of Treatment Not on file documented as of this encounter Procedures Procedure Name Priority Date/Time Associated Diagnosis Comments LAB SCAN 09/02/2011 8:55 AM EDT documented in this encounter Results * SCAN DOC: LAB (09/02/2011 8:55 AM EDT) Narrative 09/02/2011 8:55 AM EDT Procedure Note Provider, Scanning - 09/02/2011 8:55 AM EDT Scanning Provider MEDIA MGR SCAN EXT O RDR/RSLT documented in this encounter Visit Diagnoses Diagnosis Prostate cancer- Primary Malignant neoplasm of prostate documented in this encounter Care Teams Supervisor Relationship Specialty Start Date End Date Abeba Altman APRN PCP - General 10/09/10 08/29/16 documented as of this encounter
--- OUTSIDE RECORDS SUMMARY | 2024-09-03 17:52 | XMS_ITS | Encounter Summary ---
Author Organization [facility] [place] [address] Care Team Providers Care Cork Floor Installer Name Role Phone Abeba Altman APRN Primary Care Provider + Reason for Visit * Reason Comments Radiation Follow-up prostate cancer Encounter Details Date Type Department Care Team (Late st Contact Info) Description 02/27/2012 3:30 PM EDT Follow-Up Radiation Oncology at [address] [phone] Juli Silva ABSTRACT CHECKER [address] [place] [address] [place] [address] Prostate cancer (Primary Dx) Discharge [...] Sign Reading Time Taken Comments Blood Pressure 130/80 02/27/2012 4:38 PM EDT Pulse 98 02/27/2012 3:26 PM EDT Temperature 36.9 ??C (98.4 ??F) 02/27/2012 3:26 PM ED T Respiratory Rate 18 02/27/2012 3:26 PM EDT Oxygen Saturation 98% 02/27/2012 3:26 PM EDT Inhaled Oxygen Concentration - - Weight 79 kg (174 lb 2.6 oz) 02/27/2012 3:26 PM EDT Height - - Body Mass Index 29.37 03/14/2011 9:04 AM EDT documented in this encounter Patient Instructions * Patient Instructions* Juli Silva APRN - 02/27/2012 3:31 PM EDT Mr Martin you are doing well post treatment of your prostate cancer. There is no evidence of diseaseand a decreasing PSA of 0.88. As per NCCN guidelines we will see you again in six months for a repeat PSA and clinical evaluation. Call us if you have any concerns. Laboratory Studies: Date PSA Testosterone ( reference range 240-950 02/26/2012 0.88 375 08/29/2011 1.03 375 02/26/2011 2.24 08/11/2010 2.67 05/03/2010 4.67 402 02/01/2010 4.42 10/23/2009 5.3 10/20/2008 8.2 documented in this encounter Progress Notes * Juli Silva APRN - 02/27/2012 3:55 PM EDT Subjective: Patient ID: Marleny Martin is a 71 y.o. male who is in radiation oncology clinic today for regular follow up. He was treated with external beam radiation therapy for stage 2 adenocarcinoma of the prostate. He completed treatment 08/08/2009. He was last seen in clinic on 03/14/2011 at which time his PSAhad declined to 1.03. . HPI Mr Martin had a PSA [...] and he received 7920 cGy at the [facility]. Treatment was completed on 08/08/2009 Problem List: 1. Adenocarcinoma of the prostate. [id number]. 30% of left apex core had [place] 4+3 and 2% of right base core with [place] 3+4. SAMIR-, Pretreatment PSA of 8.2. Radiation [...] at this time. 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 and indicates that they have been very busy. In 2010 he was given an award by the local [employer] for his volunteer work. 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 He denies any urinary problems. His IPSS score is 3. He denies dysuria, hematuria and incontinence. International Prostate Symptom Score Total Score__3__ Not at all Less than one time [...] day with no difficulty. He does report that a couple times a months he again has hematochezia with some blood in toilet water. He denies melena. He denies constipation and diarrhea. Review of Systems Constitutional: Negative for fever, activity change, appetite change, fatigue and unexpected weightchange. HENT: Negative. Eyes: Negative. Respiratory: Negative for cough, chest tightness, shortness of breath and wheezing. Cardiovascular: Negative. Negative for chest pain. Gastrointestinal: Negative for nausea, vomiting, abdominal pain, diarrhea, constipation, blood in stool and abdominal distention. 1-3 BM early am. Once in a while --once a month --hematochezia--water and paper. Last colonoscopy ? 2 years ago, Genitourinary: Negative for dysuria, urgency, frequency, hematuria, flank pain, decreased urine volume, enuresis and difficulty urinating. See IPSS Musculoskeletal: Negative for back pain, joint swelling and arthralgias. Feet cramp at night for years Arthritis knees and feet treated with tylenol effectively. Skin: Negative. Neurological: Negative for dizziness, weakness, numbness and headaches. Hematological: Negative. Psychiatric/Behavioral: Negative. Active with the [facility] and this gives him satisfaction Filed Vitals: 02/27/12 1526 02/27/12 1638 BP: 148/92 130/80 Pulse: 98 Temp: 36.9 ??C (98.4 ??F) TempSrc: Oral Resp: 18 Weight: 79 kg (174 lb 2.6 oz) SpO2: 98% Objective: Physical Exam Constitutional: He is oriented to person, place, and time. He appears well- developed and well-nourished. No distress. HENT: Head: Normocephalic and atraumatic. Eyes: Conjunctivae are normal. No scleral icterus. Neck: Normal [...] and no mass. There is no hepatomegaly. No tenderness. He has no rebound, no guarding and no CVA tenderness. Genitourinary: Prostate normal and penis normal. Guaiac positive stool. Rectal: no external lesions, no fissure, sphincter tone is good. no tenderness, masses. Prostate flat, smooth, non-tender, without nodularity. Guaiac positive Musculoskeletal: [...] content normal. Laboratory Studies: Date PSA Testosterone 02/26/2012 0.88 375 08/29/2011 1.03 375 02/26/2011 2.24 08/11/2010 2.67 05/03/2010 4.67 402 (range 181-772) 02/01/2010 4.42 10/23/2009 5.3 10/20/2008 8.2 Assessment and Plan: Adenocarcinoma of the prostate. Patient PSA has declined indicating excellent biochemical response to radiation therapy and clinically there is ALESSANDRO. + guaiac: Patient had a normal colonoscopy in March 2011. Patient will call if bleeding increases. Hehas a Rx for Anusol HC which he [...] prostate documented in this encounter Care Teams Cork Floor Installer Relationship Specialty Start Date End Date Abeba Altman APRN PCP - General 10/09/10 08/29/16 documented as of this encounter
--- OUTSIDE RECORDS SUMMARY | 2024-09-03 17:52 | XMS_ITS | Encounter Summary ---
Author Organization [facility] [place] [address] Care Team Providers Care Cryptologic Linguist Name Role Phone Abeba Altman PAINT PREP TECHNICIAN Primary Care Provider + Reason for Visit * Reason Comments Radiation Follow-up prostate cancer Encounter Details Date Type Department Care Team (Late st Contact Info) Description 08/27/2012 9:00 AM EDT Follow-Up Radiation Oncology at [address] [phone] Juli Silva PAINT PREP TECHNICIAN [address] [place] [address] [place] [address] Prostate cancer (Primary Dx) Discharge [...] Sign Reading Time Taken Comments Blood Pressure 144/92 08/27/2012 8:36 AM EDT Pulse 78 08/27/2012 8:36 AM EDT Temperature 36.5 ??C (97.7 ??F) 08/27/2012 8:36 AM ED T Respiratory Rate 18 08/27/2012 8:36 AM EDT Oxygen Saturation 98% 08/27/2012 8:36 AM EDT Inhaled Oxygen Concentration - - Weight 79.4 kg (175 lb) 08/27/2012 8:36 AM EDT Height - - Body Mass Index 29.51 03/14/2011 9:04 AM EDT documented in this encounter Patient Instructions * Patient Instructions* Juli Silva APRN - 08/27/2012 8:47 AM EDT Mr Martin you are doing well post treatment of your prostate cancer. There is no evidence of diseaseand a stable PSA of 0.85. As per NCCN guidelines we will see you again in six months for a repeat PSA and clinical evaluation. Call us if you have any concerns. Laboratory Studies: Date PSA Testosterone 08/14/2012 0.85 02/26/2012 0.88 375 08/29/2011 1.03 375 02/26/2011 2.24 08/11/2010 2.67 05/03/2010 4.67 402 (range 181-772) 02/01/2010 4.42 10/23/2009 5.3 10/20/2008 8.2 documented in this encounter Progress Notes * Juli Silva APRN - 08/27/2012 8:41 AM EDT Subjective: Patient ID: Marleny Martin is a 72 y.o. male who is in radiation oncology clinic today for regular follow up. He was treated with external beam radiation therapy for stage 2 adenocarcinoma of the prostate. He completed treatment 08/08/2009. He was last seen in clinic on 02/26/12 at which time his PSA had declined to 0.88. HPI Mr Martin had a PSA checked on November 02, 2008, which proved elevated at 6.3. Repeat PSA came backat 8.2. This prompted biopsy, which was performed by Dr. Escalante on March 27, 2009. Pathology demonstrated Beulah score 4+3=7/10 tumor involving 30% of one [...] Problem List: 1. Adenocarcinoma of the prostate. [id number]. 30% of left apex core had Beulah 4+3 and 2% of right base core with Beulah 3+4. SAMIR-, Pretreatment PSA of 8.2. Radiation [...] to encounter Medication Sig Dispense Refill ??? loratadine (CLARITIN) 10 mg tablet Take 10 mg by mouth daily. ??? loratadine 10 mg Cap Take by mouth nightly. ??? hydrocortisone (ANUSOL-HC) [address] 1 suppository rectally 2 times daily for 10 days. 12 suppository 3 ??? LOSARTAN POTASSIUM (COZAAR ORAL) ??? hydrochlorothiazide (HYDRODIURIL) 25 mg tablet ??? albuterol-ipratropium (COMBIVENT) 18-103 mcg/Actuation inhaler ??? albuterol (PROAIR HFA) 90 mcg/Actuation inhaler ??? aspirin 325 mg tablet ??? loperamide (IMODIUM A-D) 2 mg tablet ??? CALCIUM CARBONATE/VITAMIN D3 (CALCIUM 600 WITH VITAMIN D3 ORAL) ??? acetaminophen (TYLENOL) 325 mg tablet Interim History: Mr Martin reports that he has been well. 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 He has just gotten a new cat Bonilla whom he is enjoying very much. He denies any urinary problems. His IPSS score is 3. He denies dysuria, hematuria and incontinence. International Prostate Symptom Score Total Score__3__ 0 1 2 3 4 5 Not [...] X His bowels have been moving regularly one to three times a day with no difficulty. He does report that for the last two months he has not seen any BRB rectally. He denies melena. He denies constipation and diarrhea. His B/P was elevated today but he indicates that he had problems with his insurance and was withouthis medication for about a week. He thinks that the insurance issue has been resolved. Review of Systems Constitutional: Negative for fever, activity change, appetite change, fatigue and unexpected weightchange. HENT: Negative. Eyes: Negative. Respiratory: Negative. Negative for cough, chest tightness, shortness of breath and wheezing. Cardiovascular: Negative. Negative for chest pain, palpitations [...] for years Arthritis knees are feeling better Two weeks ago he fell and hit the side of his bed causing severe bruising to his buttock area. The area remains sore. Skin: Negative. Neurological: Negative for dizziness, weakness, light-headedness, numbness and headaches. Recent fall Hematological: Negative. Psychiatric/Behavioral: Negative. Patient changed insurance for meds and did not have $ for meds--ran out of B/P meds x 1week--got insurance straightened out so this should be resolved Recent Review Flowsheet Data View Complete Flowsheet Oncology Vitals 08/27/2012 Weight 79.379 kg Height - BSA (Calculated - sq m) - BMI (Calculated) - Temp 97.7 Temp src 1 Pulse 78 Heart Rate Source Right;NIBP Resp 18 BP 144/92 BP Location Right arm Patient Position Sitting SpO2 98 Pain Level 0 Oncology Vitals 08/27/2012 Height (cm) - Weight (kg) - BSA (m2) - Objective: Physical Exam Vitals reviewed. Constitutional: He [...] erythema. No pallor. Skin is very dry Bruise on both buttock Psychiatric: He has a normal mood and affect. His behavior is normal. Judgment and thought content normal. Laboratory Studies: Date PSA Testosterone 08/14/2012 0.85 02/26/2012 0.88 375 08/29/2011 1.03 375 02/26/2011 2.24 08/11/2010 2.67 05/03/2010 4.67 402 (range 181-772) 02/01/2010 4.42 10/23/2009 5.3 10/20/2008 8.2 Assessment and Plan: Adenocarcinoma of the prostate. Patient PSA has declined indicating excellent biochemical response to radiation therapy and clinically there is ALESSANDRO. + guaiac: Patient had a normal colonoscopy in March 2011. Patient will call if bleeding increases. We will see patient again in six months for a repeat PSA , and clinical evaluation. He is to call if he has any questions of concerns in the interim documented in this encounter Procedure Notes * Provider, Scanning - 02/11/2013 11:20 AM EDTAssociated Order(s): SCAN DOC: LAB documented in this encounter Plan of Treatment Not on file documented as of this encounter Procedures Procedure Name Priority Date/Time Associated Diagnosis Comments LAB SCAN 02/11/2013 11:20 AM EDT documented in this encounter Results * SCAN DOC: LAB (02/11/2013 11:20 AM EDT) Narrative 02/11/2013 11:20 AM EDT Procedure Note Provider, Scanning - 02/11/2013 11:20 AM EDT Scanning Provider MEDIA MGR SCAN EXT O RDR/RSLT documented in this encounter Visit Diagnoses Diagnosis Prostate cancer- Primary Malignant neoplasm of prostate documented in this encounter Care Teams Cryptologic Linguist Relationship Specialty Start Date End Date Abeba Altman APRN PCP - General 10/09/10 08/29/16 documented as of this encounter
--- OUTSIDE RECORDS SUMMARY | 2024-09-03 17:52 | XMS_ITS | Encounter Summary ---
Author Organization [facility] [place] [address] Care Team Providers Care Forestry Foreman Name Role Phone Edgar Marie MD Primary Care Provider Reason for Visit * Auth/Cert Specialty Diagnoses / Procedures Referred By Contac t Referred To Contact Diagnoses Portal hypertension Portal hypertension rule out ??esophageal varices Repeat EGD in 3-4 wks Procedures PRO UPPER GI ENDOSCOPY, DIAGNOSTIC EGD, UPPER GI ENDOSCOPY Referral ID Status Reason Start Date Expiration Date Visits Re quested Visits Authorized [id number] 1 1 Encounter Details Date Type Department Care Team (Latest Contact Info) Description 09/06/2020 1:57 PM EDT - 09/06/2020 5:21 PM EDT Hospital En[place] [phone] Yung Murillo MD [facility] [address] [place] [address] Discharge Disposition: Home Social History Tobacco Use [...] Sign Reading Time Taken Comments Blood Pressure 124/54 09/06/2020 4:50 PM EDT Pulse 79 09/06/2020 4:03 PM EDT Temperature 37.7 ??C (99.9 ??F) 09/06/2020 2:15 PM ED T Respiratory Rate 16 09/06/2020 4:03 PM EDT Oxygen Saturation 97% 09/06/2020 4:50 PM EDT Inhaled Oxygen Concentration - - Weight 78.9 kg (174 lb) 09/06/2020 2:15 PM EDT Height - - Body Mass Index 28.08 07/13/2020 3:35 PM EDT documented in this encounter Discharge Instructions * Discharge Instructions* Ayleen Noland RN - 09/06/2020 4:06 PM EDT Upper GI Endoscopy: What to Expect at [...] the day after the procedure, use an weqh-ian-itoidoz spray to numb your throat. Sucking on [...] occurs, please contact your Doctor. Please call [phone] before 8pm Mon-Fri with problems, questions or concerns. If you call after 8pm or on weekends, call the Hospital at [phone] and ask to speak to the Air Valve Mechanic installation drafter and the jammer operator will contact that person for you. When should you call for help? Call [phone] anytime you think you may need emergency [...] any problems. Where can you learn more? [facility] View your After Visit Summary and more online at [email or web address] If you would like to provide feedback about your hospital experience, please call the Office of Patient and Family Relations at . If you have received this After Visit Summary in error, please immediately return it in person to the department, or notify the [facility] Privacy Office by calling toll free at between the hours of 8AM and 5PM to arrange for our retrieval of the documents at no cost to you. Content Version: 12.2 ?? [id number] [employer]. Care instructions adapted under license by [facility]. If you have questions about a medical condition or this instruction, always ask your healthcare professional. [employer] disclaims any warranty or liability for your [...] as of this encounter H&P Notes * Randolph Vásquez MD - 09/06/2020 3:33 PM EDT Patient Name: Marleny Martin Patient Age: 80 y.o. Birthdate: 1940 Admit date: 09/06/2020 Attending Physician: Yung Murillo MD Gastroenterology and Hepatology Pre-Procedure History and Physical Exam Procedure: EGD: Indication: cirrhosis; esophageal varix surveillance with prior banding Patient Active Problem List Diagnosis Code ??? Prostate cancer C61 ??? 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 CKD (chronic kidney disease) N18.9 ??? 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 Chronic allergic rhinitis J30.9 ??? Thrombocytopenia D69.6 ??? Carpal tunnel syndrome on right G56.01 ??? Restrictive lung disease J98.4 ??? Hypertension I10 ??? 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 ASA 3 - Patient with moderate systemic disease with functional limitations Sedation Plan: moderate (conscious sedation) Risks and benefits of the procedure explained to the patient. Consent signed. documented in this encounter Miscellaneous Notes * Op Note - Randolph Vásquez MD - 09/06/2020 3:56 PM EDT [facility] Operative Note Patient Name: Marleny Martin : [id number] MR#: [id number] Case Date: 09/06/2020 Surgeon: Surgeon(s) and Role: * Randolph Vásquez MD - Primary Preoperative diagnosis: Portal hypertension rule out ??esophageal varices Repeat EGD in 3-4 wks Postoperative diagnosis: * No post-op diagnosis entered * Procedure(s): EGD, UPPER GI ENDOSCOPY Please see Provation report for details. documented in this encounter Plan of Treatment Not on file documented as of this encounter Procedures Procedure Name Priority Date/Time Associated Diagnosis Comments Upper GI Endoscopy, Diagnostic ([id number]) 09/06/2020 3:37 PM EDT Portal hypertension rule out ??esophageal varices Repeat EGD in 3-4 wks UPPER GI ENDOSCOPY Routine 09/06/2020 3: 27 PM EDT documented in this encounter Results * UPPER GI ENDOSCOPY (09/06/2020 3:27 PM EDT) UPPER GI ENDOSCOPY [facility] Endoscopy Procedure Date: 09/06/2020 3:27 PM ? Patient Name: Marleny Martin ? Date of : 1940 ? Age: 80 ? Order #: [id number] ? Instrument Name: [id number] ? Procedure: ? Upper GI endoscopy Indications: ? Follow-up of esophageal varices Patient Profile: ? 80 yo M with cryptogenic cirrhosis ? and esophageal varices s/p banding in ? July 2020 presents for repeat ? EGD and variceal surveillance Providers: ? Randolph Vásquez, Corbin Franco ? Saúl Somers Referring MD: ?Miguel Thomas Medicines: ? Midazolam 4 mg IV, Fentanyl 150 ? micrograms IV Complications: ? No immediate complications. Procedure: ? [...] ? and informed consent was obtained. ? - Patient identification and proposed ? procedure were verified prior to the ? procedure by the physician, the nurse ? and the recycling technician. The procedure was ? verified in the pre-procedure area in ? the procedure room. ? - Pre-procedure physical examination ? revealed no contraindications to ? sedation. ? - ASA Grade Assessment: III - A ? patient with severe systemic disease. ? - After reviewing the risks and ? benefits, the patient was deemed in ? satisfactory condition to undergo the ? procedure. ? - The anesthesia plan was to use ? moderate sedation/analgesia ? (conscious sedation). ? - Immediately prior to administration ? of medications, the patient was ? re-assessed for adequacy to receive ? sedatives. ? - Sedation was administered by an ? endoscopy nurse. The sedation level ? attained was moderate. ? - The heart rate, respiratory rate, ? oxygen saturations, blood pressure, ? adequacy of pulmonary ventilation, ? and response to care were monitored ? throughout the procedure. ? - The physical status of the patient ? was re-assessed after the procedure. ? The procedure, indications, benefits, ? risks and alternatives were explained ? to the patient. Specifically ? discussed were potential ? complications including, but not ? limited to, bleeding, perforation, ? infection, missing a cancer, and ? adverse medication reactions. The ? Endoscope was introduced through the ? mouth, and advanced to the second ? part of duodenum. The patient ? tolerated the procedure well. The ? upper GI endoscopy was accomplished ? without difficulty. The patient ? tolerated the procedure well. ? Findings: ? In the distal esophagus there were scars consistent ? with prior esophageal banding sites. No esophageal ? varices identified. Z-line regular, 37-cm from the ? incisors. ? The entire examined stomach was normal. ? The examined duodenum was normal. ? Moderate Sedation: ? Moderate (conscious) sedation was administered by the ? endoscopy nurse and supervised by the endoscopist. ? The following parameters were monitored: oxygen ? saturation, heart rate, blood pressure, and response ? to care. ? I was present during the intraservice time as ? documented by the sedation RN. Impression: ?- No esophageal varices. Scar from ? prior band sites identified. ? - Normal stomach. ? - Normal examined duodenum. Recommendation: ?- Patient has a contact number ? available for emergencies. The signs ? and symptoms of potential delayed ? complications were discussed with the ? patient. Return to normal activities ? tomorrow. Written discharge ? instructions were provided to the ? patient. ? - Repeat upper endoscopy in 3 months ? for retreatment. ? - Return to liver clinic as ? previously scheduled with Berny ? NAEEM Hinds. ? Attending Participation: ? I personally performed the entire procedure. ? Randolph OctavioMihai Vásquez, 09/06/2020 4:00:30 PM Number of Addenda: 0 Note Initiated On: 09/06/2020 3:27 PM PROVATION 09/06/2020 3:27 PM EDT Edgar Marie MD GENERAL SURGICAL ORD ERABLES PROVATION documented in this encounter Visit Diagnoses Not on filedocumented in this encounter Administered Medications Inactive Administered Medications - up to 3 most recent administrations Medication Order MAR Action Action Date Dose Rate Site lactated ringers infusion 100 mL/hr, Intravenous, CONTINUOUS, Starting on Fri09/06/20 at 1430, Until Fri09/06/20 at 1658, Endoscopy (Day of Procedure) New Bag 09/06/2020 2:20 PM EDT 100 mL/hr 100 mL/hr documented in this encounter Active and Recently Administered Medications Times are shown in EDT. Continuous Medication Order 09/04/2020 09/05/2020 09/06/2020 lactated ringers infusion (CANCELED) 100 mL/hr, Intravenous, CONTINUOUS, Starting on Fri09/06/20 at 1430, Until Fri09/06/20 at 1658, Endoscopy (Day of Procedure) 1420 (New Bag - Prov ider: Isabella Mcdowell RN) PRN Medication Order 09/04/2020 09/05/2020 09/06/2020 fentaNYL 50 mcg/mL multi-dose injection (CANCELED) ONCE PRN, Starting on Fri09/06/20 at 1542, Until Fri09/06/20 at 1922, Intra-Operative (Intra-Procedure), Routine 1542 (Given - Provid er: Corbin Somers RN)1545 (Given - Provider: Corbin Somers RN)1548 (Given - Provider: Corbin Somers RN) midazolam (PF) (VERSED) multi-dose injection (CANCELED) ONCE PRN, Starting on Fri09/06/20 at 1542, Until Fri09/06/20 at 1922, Intra-Operative (Intra-Procedure), Routine 1542 (Given - Provid er: Corbin Somers RN)1545 (Given - Provider: Corbin Somers RN)1548 (Given - Provider: Corbin Somers RN)1552 (Given - Provider: Corbin Somesr RN) documented in this encounter Care Teams Forestry Foreman Relationship Specialty Start Date End Date Edgar Marie MD PCP - General Family Medicine 08/30/16 documented as of this encounter
--- OUTSIDE RECORDS SUMMARY | 2024-09-03 17:52 | XMS_ITS | Encounter Summary ---
Author Organization [facility] [place] [address] Care Team Providers Care Ballast Inspector Name Role Phone Edgar Marie MD Primary Care Provider [phone] Encounter Details Date Type Department Care Team (Late st Contact Info) Description 08/14/2020 Telephone [place] [phone] Trudy Romero Social History Tobacco Use Types Packs/Day Years [...] encounter Miscellaneous Notes * Telephone Encounter - Trudy Romero - 08/14/2020 3:22 PM EDT Marleny Martin [id number] Diagnosis/Indication: repeat EGD 1. Have you ever had a/an Upper Endoscopy before? Yes: Date 08/08/20 If yes, did you have any problems with the procedure? No What type of sedation was used: IV Conscious Sedation 2. Do you take any Blood Thinners? No 3. Do you have a Pacemaker or Defibrillator device? No 4. Are you a diabetic? No 5. Do you have any Allergies to Eggs, Latex or Medications? Yes: E-DH 6. Do you take any Oral Iron [...] preference regarding the gender of your provider? Yes: Male 12. Is there any other information you [...] have changed* Estimated body mass index is 28.58 kg/m?? as calculated from the following: Height as of 07/13/20: 167.6 cm (5' 6). Weight as of 07/13/20: 80.3 kg (177 lb 1.6 oz). Age:80 y.o. documented in this encounter Plan of Treatment Not on file documented as of this encounter Visit Diagnoses Not on filedocumented in this encounter Care Teams Ballast Inspector Relationship Specialty Start Date End Date Edgar Marie MD PCP - General Family Medicine 08/30/16 documented as of this encounter
--- OUTSIDE RECORDS SUMMARY | 2024-09-03 17:52 | XMS_ITS | Encounter Summary ---
Author Organization [facility] [address] Care Team Providers Care Language Interpreter Name Role Phone Edgar Marie MD Primary Care Provider [phone] Encounter Details Date Type Department Care Team (Late st Contact Info) Description 08/09/2020 Telephone [place] [address] Virgie Aguirre Social History Tobacco Use Types Packs/Day Years [...] encounter Miscellaneous Notes * Telephone Encounter - Virgie Aguirre - 08/09/2020 11:27 AM EDT Called pt to schedule a procedure. No answer and no vm. So sending a letter documented in this encounter Plan of Treatment Not on file documented as of this encounter Visit Diagnoses Not on filedocumented in this encounter Care Teams Language Interpreter Relationship Specialty Start Date End Date Edgar Marie MD PCP - General Family Medicine 08/30/16 documented as of this encounter
--- OUTSIDE RECORDS SUMMARY | 2024-09-03 17:52 | XMS_ITS | Encounter Summary ---
Author Organization [facility] [place] [address] Care Team Providers Care Radiator Tester Name Role Phone Edgar Marie MD Primary Care Provider [phone] Encounter Details Date Type Department Care Team (Late st Contact Info) Description 06/09/2020 Telephone [place] [phone] Mar[facility] Monaco, [facility] Social History Tobacco Use Types Packs/Day Years [...] * Telephone Encounter - Marilee Monaco - 06/09/2020 8:58 AM EDT M was calling to schedule an EGD per Berny. documented in this encounter Plan of Treatment Not on file documented as of this encounter Visit Diagnoses Not on filedocumented in this encounter Care Teams Radiator Tester Relationship Specialty Start Date End Date Edgar Marie MD PCP - General Family Medicine 08/30/16 documented as of this encounter
--- OUTSIDE RECORDS SUMMARY | 2024-09-03 17:52 | XMS_ITS | Encounter Summary ---
Author Organization [facility] [place] [address] Care Team Providers Care Computer Applications Developer Name Role Phone Edgar Marie MD Primary Care Provider [phone] Encounter Details Date Type Department Care Team (Late st Contact Info) Description 03/15/2020 Tele[place] [phone] Siobhan Swenson Social History Tobacco Use Types Packs/Day Years [...] encounter Miscellaneous Notes * Telephone Encounter - Siobhan Swenson - 03/15/2020 8:34 AM EDT Patient is expecting PCP to send over a new referral. Patient also notes that the best way to get in touch with him once we receive new referral is to send him a letter versus calling him documented in this encounter Plan of Treatment Not on file documented as of this encounter Visit Diagnoses Not on filedocumented in this encounter Care Teams Computer Applications Developer Relationship Specialty Start Date End Date Edgar Marie MD PCP - General Family Medicine 08/30/16 documented as of this encounter
--- OUTSIDE RECORDS SUMMARY | 2024-09-03 17:52 | XMS_ITS | Encounter Summary ---
Author Organization Formerly [facility], [facility] [place] [address] Care Team Providers Care Tabber Name Role Phone Abeba Altman KNITTING MACHINE TENDER Primary Care Provider + Reason for Visit * Reason Comments Radiation Follow-up prostate cancer Encounter Details Date Type Department Care Team (Late st Contact Info) Description 08/29/2016 9:00 AM EDT Office Visit Radiation Oncology at [address] [id number] Juli Silva KNITTING MACHINE TENDER [address] [place] [address] [place] [address] Prostate cancer Social History Tobacco Use Types Packs/Day [...] Sign Reading Time Taken Comments Blood Pressure 131/69 08/29/2016 9:08 AM EDT Pulse 70 08/29/2016 9:08 AM EDT Temperature 36.8 ??C (98.2 ??F) 08/29/2016 9:08 AM ED T Respiratory Rate 16 08/29/2016 9:08 AM EDT Oxygen Saturation 98% 08/29/2016 9:08 AM EDT Inhaled Oxygen Concentration - - Weight 73 kg (161 lb) 08/29/2016 9:08 AM EDT Height 164 cm (5' 4.57) 08/29/2016 9:08 AM EDT Body Mass Index 27.15 08/29/2016 9:08 AM EDT documented in this encounter Patient Instructions * Patient Instructions* Juli Silva APRN - 08/29/2016 9:00 AM EDT Date PSA Testosterone 08/06/2016 0.40 08/18/2015 0.40 08/04/2014 0.50 0.50 02/11/2013 0.68 08/14/2012 0.85 02/26/2012 0.88 375 08/29/2011 1.03 375 02/26/2011 2.24 08/11/2010 2.67 05/03/2010 4.67 402 (range 181-772) 02/01/2010 4.42 10/23/2009 5.3 10/20/2008 8.2 Vitals Office Visit from 08/29/2016 in [facility] Radiation Oncology Weight - Scale 73 kg (161 lb) Height 164 cm (5' 4.57) BSA (Calculated - sq m) 1.82 sq meters BMI (Calculated) 27.2 Temp 36.8 ??C (98.2 ??F) Temp Source Oral Heart Rate 70 Heart Rate Source Left, NIBP Resp 16 BP 131/69 BP Location Left arm Patient Position Sitting SpO2 98 % Karnofsky Score 100 Sensory Neuropathy Grade 1 [right thumb tingles] documented in this encounter Progress Notes * Juli Silva APRN - 08/29/2016 9:00 AM EDT Patient ID: Marleny Martin is a 76 y.o. male who is in radiation oncology clinic today for regular follow up. He was treated with external beam radiation therapy for stage 2 adenocarcinoma of the prostate. He completed treatment 08/08/2009. He was last seen in clinic 08/31/2015 at which time his PSA was stable and there was ALESSANDRO HPI Mr Martin had a PSA checked on November 02, 2008, which proved elevated at 6.3. Repeat PSA came backat 8.2. This prompted biopsy, which was performed by Dr. Escalante on March 27, 2009. Pathology demonstrated [place] score 4+3=7/10 tumor involving 30% of one needle biopsy core taken from the left apex. Also, a nodule by ultrasound was seen at the right base, which was biopsied and found to contain a small focus of Gates[place] score 3+4=7/10 tumor involving about 2% of that needle core biopsy. All other sampled areas of the prostate gland showed no evidence for tumor. Ultrasound measured volume was 24 mL. He elected to be treated with external beam radiation and he received 7920 cGy at the [facility]. Treatment was completed on 08/08/2009 Prostate cancer [...] Problem List: 1. Adenocarcinoma of the prostate. [id number]. 30% of left apex core had David [...] Prostate cancer C61 ??? 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 Stapedes surgery bilateral No Known Allergies Current Outpatient Prescriptions on File Prior to Visit Medication Sig Dispense Refill ??? LOSARTAN POTASSIUM (COZAAR ORAL) ??? hydrochlorothiazide (HYDRODIURIL) 25 mg tablet ??? albuterol-ipratropium (COMBIVENT) 18-103 mcg/Actuation inhaler ??? albuterol (PROAIR HFA) 90 mcg/Actuation inhaler ??? aspirin 325 mg tablet ??? loperamide (IMODIUM A-D) 2 mg tablet ??? CALCIUM CARBONATE/VITAMIN D3 (CALCIUM 600 WITH VITAMIN D3 ORAL) ??? acetaminophen (TYLENOL) 325 mg tablet No current facility-administered medications on file prior to visit. Social History Social History ??? Marital status: Spouse name: N/A ??? Number of children: N/A ??? Years of education: N/A Occupational History ??? Not on file. Social History Main Topics ??? Smoking status: Never Smoker ??? Smokeless tobacco: Not on file ??? Alcohol use No ??? Drug use: No ??? Sexual activity: No Other Topics Concern ??? Not on file Social History Narrative Advance directive: Patient wants his step daughters to be his health care agent. They are aware andhe has made plans to get AD done. He was asked to bring copy to clinic. Patient indicates that he has no regular contact with his stepchildren--only if he runs into them around town He is unhappy about this. 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 He enjoys bowling and is par to of a league. He enjoys his cat Bonilla Interim History: Mr Martin reports that he has been well. He has a new PCP and was recently seen by him and was foundto have crackles in his chest so was sent to have a chest XR. He is now scheduled to have a chestCT and is not sure why. 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 He also continues to volunteer at the [facility] on weekends. He continues on the [employer] and enjoys this activity and the socialization very much. He still enjoys his cat Bonilla He indicates that he prefers to be busy. His bowels generally move three times in am and he has not had any recurrence of rectal bleeding except if he straining and then the bleeding is not persistent. He tries to have fiber, fruits and vegetables in his diet. He has no abdominal pain. He continues with arthritis pain at times-- on and off for which he takes aspirin as needed. He denies any urinary problems. His IPSS score is 2 He indicates that he is very pleased [...] Every 2 hours Every hour nocturia X Review of Systems Constitutional: Negative. Negative for activity change, appetite change, fatigue, fever and unexpected weight change. 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 HENT: Negative. Eyes: Negative. Respiratory: Negative. Negative for cough, chest tightness, shortness of breath and wheezing. Mild ERICKSON See interim history Cardiovascular: Negative. Negative for chest pain, palpitations and leg swelling. Gastrointestinal: Negative. Negative for abdominal distention, abdominal pain, anal bleeding, bloodin stool, constipation, diarrhea, nausea and vomiting. 1-3 BM early am. No hematochezia at this time Rare BRB if he strains Genitourinary: Negative. Negative for decreased urine volume, difficulty urinating, dysuria, enuresis, flank pain, frequency, hematuria and urgency. See IPSS and interim history Musculoskeletal: Positive for arthralgias. Negative for back pain and joint swelling. Skin: Negative. Neurological: Negative. Negative for dizziness, weakness, light-headedness, numbness and headaches. Hematological: Negative. Psychiatric/Behavioral: Negative. KPS: 100 IPSS 2 BETH--not sexually active Vitals Office Visit from 08/29/2016 in [facility] Radiation Oncology Weight - Scale 73 kg (161 lb) Height 164 cm (5' 4.57) BSA (Calculated - sq m) 1.82 sq meters BMI (Calculated) 27.2 Temp 36.8 ??C (98.2 ??F) Temp Source Oral Heart Rate 70 Heart Rate Source Left, NIBP Resp 16 BP 131/69 BP Location Left arm Patient Position Sitting SpO2 98 % Karnofsky Score 100 Sensory Neuropathy Grade 1 [right thumb tingles] Objective: Physical Exam Constitutional: He is oriented [...] no CVA tenderness. Genitourinary: Genitourinary Comments: Rectal: deferred Musculoskeletal: Normal range of motion. [...] Vitals reviewed. Laboratory Studies: Date PSA Testosterone 08/06/2016 0.40 08/18/2015 0.40 08/04/2014 0.50 0.50 02/11/2013 0.68 08/14/2012 0.85 02/26/2012 0.88 375 08/29/2011 1.03 375 02/26/2011 2.24 08/11/2010 2.67 05/03/2010 4.67 402 (range 181-772) 02/01/2010 4.42 10/23/2009 5.3 10/20/2008 8.2 08/19/2016--chest XR ordered by PCP Dr Edgar Marie: Right hilar prominence. CT of the chest has been ordered. Assessment and Plan: Adenocarcinoma of the prostate.[id number]. 30% of left apex core had Gatesville 4+3 and 2% of right base core with David 3+4. SAMIR-, Pretreatment PSA of 8.2. Mr Martin was treated with external beam radiation 79.2 Gy completed on 08/08/2009. Patient PSA remains low and is remains at his post treatment chinedu of 0.40 with no concerning late effects from treatment. Clinically and functionally he is doing well. H/O hematochezia: Patient had a normal colonoscopy in March 2011. Patient will call if bleeding occurs and is persistent. He was encouraged to use stool softener to prevent hard stool. and straining. Joint pain: patient has chronic renal failure and has been using aspirin daily or arthralgias. He was advised to discuss this with his PCP but that NSAID are not advised with renal failure and that it would be preferable for him to use tylenol Abnormal chest XR--patient has been scheduled to have chest CT ordered by his PCP. We discussed therational for it and he agrees. He is a non-smoker but has had extensive second hand smoke from his . We will see patient again in one year for a repeat PSA , and clinical evaluation. He is to call if he has any questions of concerns in the interim documented in this encounter Plan of Treatment Not on file documented as of this encounter Procedures Procedure Name Priority Date/Time Associated Diagnosis Comments LAB SCAN 08/18/2017 12:[address] SCAN (SCAN) 09/04/2016 12:00 AM EDT documented in this encounter Results * SCAN DOC: LAB (08/18/2017 12:00 AM EDT) Narrative 08/18/2017 12:00 AM EDT Ordered by an unspecified provider. Scanning Provider MEDIA MGR SCAN EXT O RDR/RSLT * SCAN DOC: CT SCAN (09/04/2016 12:00 AM EDT) Anatomical Region Laterality Modality Other Scanning Provider MEDIA MGR SCAN EXT O RDR/RSLT documented in this encounter Visit Diagnoses Diagnosis Prostate cancer Malignant neoplasm of prostate documented in this encounter Care Teams Tabber Relationship Specialty Start Date End Date Abeba Altman, ASHLY PCP - General 10/09/10 08/29/16 documented as of this encounter
--- OUTSIDE RECORDS SUMMARY | 2024-09-03 17:52 | XMS_ITS | Encounter Summary ---
Author Organization [facility] [place] [address] Care Team Providers Care Wire Welder Name Role Phone Edgar Marie MD Primary Care Provider [phone] Reason for Visit * Auth/Cert Specialty Diagnoses / Procedures Referred By Ericka t Referred To Contact Diagnoses Esophageal varices varices screening Procedures PRO UPPER GI ENDOSCOPY, DIAGNOSTIC EGD, UPPER GI ENDOSCOPY Referral ID Status Reason Start Date Expiration Date Visits Re quested Visits Authorized [id number] 1 1 Encounter Details Date Type Department Care Team (Latest Contact Info) Description 08/08/2020 12:03 PM EDT - 08/08/2020 3:37 PM EDT Hospital Encounter [place] [address] Yung Murillo MD [facility] [place] [address] Discharge Disposition: Home Social History Tobacco Use [...] Sign Reading Time Taken Comments Blood Pressure 138/66 08/08/2020 3:00 PM EDT Pulse 84 08/08/2020 2:10 PM EDT Temperature 36.7 ??C (98.1 ??F) 08/08/2020 12:27 PM E DT Respiratory Rate 20 08/08/2020 3:00 PM EDT Oxygen Saturation 97% 08/08/2020 3:00 PM EDT Inhaled Oxygen Concentration - - Weight - - Height - - Body Mass Index - - documented in this encounter Discharge Instructions * Discharge Instructions* Annemarie Washington RN - 08/08/2020 2:21 PM EDT Images from the original note were not included. Upper GI Endoscopy: What to Expect at [...] the day after the procedure, use an [id number]-[id number] spray to numb your throat. Sucking on [...] occurs, please contact your Doctor. Please call [phone] before 8pm Mon-Fri with problems, questions or concerns. If you call after 8pm or on weekends, call the Hospital at [phone] and ask to speak to the Market Asset Protection Manager senior front end web developer and the fine grade operator will contact that person for you. When should you call for help? Call 911 anytime you think you may need emergency [...] any problems. Where can you learn more? [facility] View your After Visit Summary and more online at [email or web address] If you would like to provide feedback [...] cost to you. Content Version: 12.2 ?? [id number] [employer]. Care instructions adapted under license by [facility]. If you have questions about a medical condition or this instruction, always ask your healthcare professional. [employer] disclaims any warranty or liability for your use of this information. Variceal Banding: What to Expect at Home Your Recovery Your doctor used a lighted tube (endoscope, or scope) to help fix one or more enlarged veins in your esophagus. That's the tube that carries food from your mouth to your stomach. The enlarged veins are called varices. The doctor placed elastic rings around the veins. The rings look like rubber bands. The bands cut off blood flow through the vein. They help prevent internal bleeding. You may need to have the procedure several times to control the varices and prevent bleeding. Your doctor will probably check the varices every 3 to 12 months. This care sheet gives you a general idea about how long it will take for you to recover. But each person recovers at a different pace. Follow the steps below to get better as quickly as possible. How can you care for yourself at home? Activity ? Rest when you feel tired. Getting enough sleep will help you recover. ? Avoid strenuous activities, such as bicycle riding, jogging, weight lifting, or aerobic exercise, until your doctor says it is okay. ? Allow your body to heal. Don't move quickly or lift anything heavy until you are feeling better. ? You may need to take a day or two off work. It depends on the type of work you do and how youfeel. ? For your safety, do not drive or operate any machinery that could be dangerous. Wait until the medicine wears off and you can think clearly and react easily. ? Your doctor may suggest sleeping with more pillows so you aren't lying flat. Diet ? Do not eat or drink for 2 hours after your procedure. ? Drink plenty of fluids (unless your doctor has told you not to). ? Try just liquids for your first meal after the surgery. Then you can have regular food if it feels okay. You might try soft foods until your throat feels better. ? Do not drink alcohol. It increases your risk of bleeding. It can also make liver damage worse. Tell your doctor if you need help to quit. Counseling, support groups, and sometimes medicines canhelp you stay sober. Medicines ? Your doctor will tell you if and when you can restart your medicines. He or she will also give you instructions about taking any new medicines. Follow-up care is a crump part of your treatment and safety. Be sure to make and go to all appointments, and call your doctor if you are having problems. It's also a good idea to know your test resultsand keep a list of the medicines you take. When should you call for help? Call 911 anytime you think you may need emergency care. For example, call if: ? You passed out (lost consciousness). ? You are short of breath. Call your doctor now or seek immediate medical care if: ? You vomit blood or what looks like coffee grounds. ? Your stools are maroon or very bloody. ? You are sick to your stomach or can't keep down fluids. ? You have pain that does not get better after you take pain medicine. ? You have a fever. Watch closely for changes in your health, and be sure to contact your doctor if: ? Your throat still hurts, food feels like it sticks in your throat, or you have trouble swallowing after a day or two. ? You do not get better as expected. Where can you learn more? Visit our health information library at [email or web address] You can also view health information on [email or web address], your personal patient account. Log in or sign uptoday. Enter E135 in the search box to learn more about Variceal Banding: What to Expect at Home. Current as of: March 01, 2020?Content Version: 12.6 ?? [id number] [employer]. Care instructions adapted under license by [facility]. If you have questions about a medical condition or this instruction, always ask your healthcare professional. [employer] disclaims any warranty or liability for your [...] as of this encounter H&P Notes * Yung Murillo MD - 08/08/2020 12:38 PM EDT Procedure: EGD Indication: screen for varices History of Present Illness: Marleny Martin is a 80 y.o. man here for EV screening. Patient Active Problem List Diagnosis Code ??? Prostate cancer C61 ??? 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 CKD (chronic kidney disease) N18.9 ??? 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 Chronic allergic rhinitis J30.9 ??? Thrombocytopenia D69.6 ??? Carpal tunnel syndrome on right G56.01 ??? Restrictive lung disease J98.4 ??? Hypertension I10 ??? 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 Dwayne Inhibitors Social History/Family History: Reviewed in EDH. No changes Exam: Patient Vitals for the past 24 hrs: Temp Pulse Resp BP SpO2 O2 Device 08/08/20 1227 36.7 ??C (98.1 ??F) 83 18 175/89 100 % RA Axox3, nad Anicteric, MMM CTAB RRR, no m/r/g abd soft nt nd +bs Assessment and Plan: Proceed with EGD: ASA Grade: ASA 3 - Patient with moderate systemic disease with functional limitations Mallampati score:III (soft palate, base of uvula visible) Sedation plan: Moderate Conscious sedation Risks and benefits of the procedure were discussed with the patient. Consent has been signed. Yung Murillo MD documented in this encounter Miscellaneous Notes * Op Note - Yung Murillo MD - 08/08/2020 2:08 PM EDT [facility] [place] Patient Name: Marleny Martin : [id number] MR#: [id number] Case Date: 08/08/2020 Surgeon: Surgeon(s) and Role: * Yung Murillo MD - Primary Preoperative diagnosis: varices screening Postoperative diagnosis: * No post-op diagnosis entered * Procedure(s): EGD, W BAND LIGATION OF ESOPHAGEAL/GASTRIC VARICES Please see Provation report for details. documented in this encounter Plan of Treatment Not on file documented as of this encounter Procedures Procedure Name Priority Date/Time Associated Diagnosis Comments Upper Gi Endoscopy, Ligat Varix (31297) 08/08/2020 1:52 PM EDT varices screening UPPER GI ENDOSCOPY Routine 08/08/2020 1: 45 PM EDT documented in this encounter Results * UPPER GI ENDOSCOPY (08/08/2020 1:45 PM EDT) UPPER GI ENDOSCOPY [facility] Endoscopy ___ Procedure Date: 08/08/2020 1:45 PM ? Patient Name: Marleny Martin ? Date of : 1940 ? Age: 80 ? Order #: [id number] ? Instrument Name: [id number] ? ___ Procedure: ? Upper GI endoscopy Indications: ? Portal hypertension rule out ? esophageal varices Providers: ? Yung Murillo, Randolph Rayo, ? RN, Blake Craft, Guidance Counselor Referring MD: ? Medicines: ? Fentanyl 100 micrograms IV, Midazolam ? 3.5 mg IV Complications: ? No immediate complications. ___ Procedure: ? Pre-Anesthesia Assessment: ? - Prior to the procedure, a History ? and Physical was performed, and ? patient medications and allergies ? were reviewed. The patient is ? competent. The risks and benefits of ? the procedure and the sedation ? options and risks were discussed with ? the patient. All questions were ? answered and informed consent was ? obtained. Patient identification and ? proposed procedure were verified by ? the physician in the pre-procedure ? area. Mental Status Examination: ? alert and oriented. Airway ? Examination: normal oropharyngeal ? airway and neck mobility. Respiratory ? Examination: clear to auscultation. ? CV Examination: normal. Prophylactic ? Antibiotics: The patient does not ? require prophylactic antibiotics. ? Prior Anticoagulants: The patient has ? taken no previous anticoagulant or ? antiplatelet agents. ASA Grade ? Assessment: III - A patient with ? severe systemic disease. After ? reviewing the risks and benefits, the ? patient was deemed in satisfactory ? condition to undergo the procedure. ? The anesthesia plan was to use ? moderate sedation / analgesia ? (conscious sedation). Immediately ? prior to administration of ? medications, the patient was ? re-assessed for adequacy to receive ? sedatives. The heart rate, ? respiratory rate, oxygen saturations, ? blood pressure, adequacy of pulmonary ? ventilation, and response to care ? were monitored throughout the ? procedure. The physical status of the ? patient was re-assessed after the ? procedure. ? The procedure, indications, benefits, ? risks and alternatives were explained ? to the patient. Specifically ? discussed were potential ? complications including, but not ? limited to, bleeding, perforation, ? infection, missing a cancer, and ? adverse medication reactions. The ? Endoscope was introduced through the ? and advanced to the. The patient ? tolerated the procedure well. The ? patient tolerated the procedure well. ? Findings: ? Esophagogastric landmarks were identified: the Z-line ? was found at 38 cm and the gastroesophageal junction ? was found at 38 cm from the incisors. ? Large (> 5 mm) varices were found in the distal ? esophagus. Two bands were successfully placed with ? complete eradication, resulting in deflation of ? varices. ? The entire examined stomach was normal. ? The examined duodenum was normal. ? Moderate Sedation: ? Moderate (conscious) sedation was administered by the ? endoscopy nurse and supervised by the endoscopist. ? The following parameters were monitored: oxygen ? saturation, heart rate, blood pressure, and response ? to care. Impression: ?- Esophagogastric landmarks ? identified. ? - Large (> 5 mm) esophageal varices. ? Completely eradicated. Banded. ? - Normal stomach. ? - Normal examined duodenum. ? - No specimens collected. Recommendation: ?- Discharge patient to home. ? - Full liquid diet today. ? - Repeat upper endoscopy in 4 weeks ? for retreatment. ? - Return to hepatology clinic ? Attending Participation: ? I personally performed the entire procedure. ? Yung Murillo, 08/08/2020 2:12:26 PM Number of Addenda: 0 Note Initiated On: 08/08/2020 1:45 PM PROVATION 08/08/2020 1:45 PM EDT Unknown GENERAL SURGICAL ORD ERABLES PROVATION documented in this encounter Visit Diagnoses Not on filedocumented in this encounter Administered Medications Inactive Administered Medications - up to 3 most recent administrations Medication Order MAR Action Action Date Dose Rate Site lactated ringers infusion 100 mL/hr, Intravenous, CONTINUOUS, Starting on Fri08/08/20 at 1245, Until Fri08/08/20 at 1737, Endoscopy (Day of Procedure) documented in this encounter Active and Recently Administered Medications Times are shown in EDT. Continuous Medication Order 08/06/2020 08/07/2020 08/08/2020 lactated ringers infusion 100 mL/hr, Intravenous, CONTINUOUS, Starting on Fri08/08/20 at 1245, Until Fri08/08/20 at 1737, Endoscopy (Day of Procedure) 1245 (Due) PRN Medication Order 08/06/2020 08/07/2020 08/08/2020 fentaNYL 50 mcg/mL multi-dose injection (CANCELED) ONCE PRN, Starting on Fri08/08/20 at 1357, Until Fri08/08/20 at 1737, Intra-Operative (Intra-Procedure), Routine 1357 (Given - Provid er: Randolph Rayo RN)1404 (Given - Provider: Randolph Rayo RN)1407 (Given - Provider: Randolph Rayo RN) midazolam (PF) (VERSED) multi-dose injection (CANCELED) ONCE PRN, Starting on Fri08/08/20 at 1357, Until Fri08/08/20 at 1737, Intra-Operative (Intra-Procedure), Routine 1357 (Given - Provid er: Randolph Rayo RN)1359 (Given - Provider: Randolph Rayo RN)1401 (Given - Provider: Randolph Rayo RN)1404 (Given - Provider: Randolph Rayo RN)1407 (Given - Provider: Randolph Rayo RN) documented in this encounter Care Teams Wire Welder Relationship Specialty Start Date End Date Edgar Marie MD PCP - General Family Medicine 08/30/16 documented as of this encounter
--- OUTSIDE RECORDS SUMMARY | 2024-09-03 17:52 | XMS_ITS | Encounter Summary ---
Author Organization [facility] Address [facility] [place] [address] Care Team Providers Care Collections Analyst Name Role Phone Edgar Marie MD Primary Care Provider [phone] Encounter Details Date Type Department Care Team (Late st Contact Info) Description 03/27/2009 Orders Only Urology at [facility] [place] [address] Edgar Escalante MD [facility] [place] [address] Social History Tobacco Use Types Packs/Day Years Used Date Smoking Tobacco: Never Assessed Sex and Gender Information Value Date Recorded Sex Assigned at Not on file Gender Identity Not on file Sexual Orientation Not on file documented as of this encounter Plan of Treatment Not on file documented as of this encounter Procedures Procedure Name Priority Date/Time Associated Diagnosis Comments SURGICAL PATHOLOGY REPORT Routine 03/27/2009 1:35 PM EDT documented in this encounter Results * Surgical Pathology Report (03/27/2009 1:35 PM EDT) Surgical Pathology Report [id number] ? Location: The signing pathologist has (i) examined the relevant preparation(s) for the specimen(s) and (ii) rendered or confirmed the diagnosis(es). . ?Pathology Surgical Pathology Final Report Clinical Information Specimen Submitted: A - Right base B - Right mid C - Right apex D - Right lateral base E - Right lateral mid F - Right lateral apex G - Left base H - Left mid I - Left apex J - Left lateral base K - Left lateral mid L - Left lateral apex M - Left base nodule. N - Right base nodule. Clinical History: Not provided Clinical Diagnosis: Not provided Gross Description A - Labeled/Fixative: Right base prostate, formalin. Qty/Size/Weight: ?Single villanueva-white needle core biopsy, 1.4 x 0.1 cm. Sections/Processi ng: ??(T1) B - Labeled/Fixative: Right mid prostate, formalin. Qty/Size/Weight: ?Single villanueva-white needle core biopsy, 1.3 x 0.1 cm. Sections/Processi ng: ??(T1) C - Labeled/Fixative: Right apex prostate, formalin. Qty/Size/Weight: ?Single villanueva-white needle core biopsy, 1.4 x 0.1 cm. Sections/Processi ng: ??(T1) D - Labeled/Fixative: Right lateral base prostate, formalin. Qty/Size/Weight: ?Single villanueva-white needle core biopsy, 1.0 x 0.1 cm. Sections/Processi ng: ??(T1) E - Labeled/Fixative: Right lateral mid prostate, formalin. Qty/Size/Weight: ?Single villanueva-white needle core biopsy, 1.0 x 0.1 cm. Sections/Processi ng: ??(T1) F - Labeled/Fixative: Right lateral apex prostate, formalin. Qty/Size/Weight: ?Single villanueva-white needle core biopsy, 0.6 x 0.1 cm. Sections/Processi ng: ??(T1) G - Labeled/Fixative: Left base prostate, formalin. Qty/Size/Weight: ?Single villanueva-white needle core biopsy, 1.4 x 0.1 cm. Sections/Processi ng: ??(T1) H - Labeled/Fixative: Left mid prostate, formalin. Qty/Size/Weight: ?Single villanueva-white needle core biopsy, 1.6 x 0.1 cm. . Gross Description Sections/Processi ng: ??(T1) I - Labeled/Fixative: Left apex prostate, formalin. Qty/Size/Weight: ?Single villanueva-white needle core biopsy, 1.3 x 0.1 cm. Sections/Processi ng: ??(T1) J - Labeled/Fixative: Left lateral base prostate, formalin. Qty/Size/Weight: ?Single villanueva-white needle core biopsy, 1.0 x 0.1 cm. Sections/Processi ng: ??(T1) K - Labeled/Fixative: Left lateral mid prostate, formalin. Qty/Size/Weight: ?Single villanueva-white needle core biopsy, 1.2 x 0.1 cm. Sections/Processi ng: ??(T1) L - Labeled/Fixative: Left lateral apex prostate, formalin. Qty/Size/Weight: ?Single villanueva-white needle core biopsy, 1.0 x 0.1 cm. Sections/Processi ng: ??(T1) M - Labeled/Fixative: Left nodule, formalin. Qty/Size/Weight: ?Single needle core biopsy, 1.2 x 0.1 cm. Sections/Processi ng: ??(T1) N - Labeled/Fixative: Right nodule, formalin. Qty/Size/Weight: ?Single needle core biopsy, 1.1 x 0.1 cm. Sections/Processi ng: ??(T1) ??aje/EJR Microscopic Description Slides reviewed, microscopic description not recorded. Diagnosis A - Prostatic core needle biopsy, right base: ?Benign prostatic tissue. 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 C - Prostatic core needle biopsy, right apex: ?Benign prostatic tissue. D - Prostatic core needle biopsy, right lateral base: ?Benign prostatic tissue. E - Prostatic core needle biopsy, right lateral mid: ?Benign prostatic tissue with focal HGPIN. F - Prostatic core needle biopsy, right lateral apex: ?Benign prostatic tissue. G - Prostatic core needle biopsy, left base: ?Benign prostatic tissue. H - Prostatic core needle biopsy, left mid: ?Benign prostatic tissue. I - Prostatic core needle biopsy, left apex: ?Adenocarcinoma, Healy grade 4 + 3, involving approximately ?30% of one of one needle core biopsy. J - Prostatic core needle biopsy, left lateral base: ?Benign prostatic tissue. K - Prostatic core needle biopsy, left lateral mid: . Diagnosis ?Benign prostatic tissue. L - Prostatic core needle biopsy, left lateral apex: ?Benign prostatic tissue. M - Prostatic core needle biopsy, left base nodule: ? Benign prostatic tissue. N - Prostatic core needle biopsy, right base nodule: ?Adenocarcinoma, Healy grade 3 + 4, involving approximately ?2% of one of one needle core biopsy. CR-0 03/28/09 VMS 03/29/09 Verified by: ? Linda BERG, Debbie ?Pathologist ?(Electronic Signature) The attending pathologist whose signature appears on this report has reviewed all diagnostic slides and has edited the gross and/or microscopic portion of the report in rendering the final pathologic diagnosis. CAROLINA PALOMINO 03/27/2009 1:35 PM EDT Edgar Escalante MD PATHOLOGY/CYTOLOGY O RDERABLES [facility] documented in this encounter Visit Diagnoses Not on filedocumented in this encounter Care Teams Collections Analyst Relationship Specialty Start Date End Date Edgar Marie MD PCP - General Family Medicine 08/30/16 documented as of this encounter
--- OUTSIDE RECORDS SUMMARY | 2024-09-03 17:52 | XMS_ITS | Encounter Summary ---
Author Organization [facility] Address [facility] [place] [address] Care Team Providers Care Heavy Threader Name Role Phone Abeba Altman WIND FARM SUPPORT SPECIALIST Primary Care Provider + Reason for Visit * Reason Comments Radiation Follow-up prostate cancer Encounter Details Date Type Department Care Team (Late st Contact Info) Description 08/31/2015 9:00 AM EDT Office Visit Radiation Oncology at [address] [phone] Juli Silva WIND FARM SUPPORT SPECIALIST [address] [place] [address] [place] [address] Malignant neoplasm of prostate Social [...] Sign Reading Time Taken Comments Blood Pressure 150/69 08/31/2015 8:35 AM EDT Pulse 58 08/31/2015 8:35 AM EDT Temperature 36.4 ??C (97.5 ??F) 08/31/2015 8:35 AM ED T Respiratory Rate 16 08/31/2015 8:35 AM EDT Oxygen Saturation 100% 08/31/2015 8:35 AM EDT Inhaled Oxygen Concentration - - Weight 74.6 kg (164 lb 8 oz) 08/31/2015 8:35 AM EDT Height - - Body Mass Index 27.74 03/14/2011 9:04 AM EDT documented in this encounter Patient Instructions * Patient Instructions* Juli Silva APRN - 08/31/2015 8:49 AM EDT Date PSA Testosterone 08/18/2015 0.40 08/04/2014 0.50 0.50 02/11/2013 0.68 08/14/2012 0.85 02/26/2012 0.88 375 08/29/2011 1.03 375 02/26/2011 2.24 08/11/2010 2.67 05/03/2010 4.67 402 (range 181-772) 02/01/2010 4.42 10/23/2009 5.3 10/20/2008 8.2 Vitals Office Visit from 08/31/2015 in [facility] Radiation Oncology Weight - Scale 74.617 kg (164 lb 8 oz) Temp 36.4 ??C (97.5 ??F) Temp Source Oral Heart Rate 58 Heart Rate Source Right, NIBP Resp 16 BP 150/69 mmHg BP Location Right arm Patient Position Sitting SpO2 100 % documented in this encounter Progress Notes * Juli Silva APRN - 08/31/2015 8:22 AM EDT Subjective: Patient ID: Marleny Martin is a 75 y.o. male who is in radiation oncology clinic today for regular follow up. He was treated with external beam radiation therapy for stage 2 adenocarcinoma of the prostate. He completed treatment 08/08/2009. He was last seen in clinic August 18, 2014 at which time hisPSA was stable and there was ALESSANDRO HPI Mr Martin had a PSA checked on November 02, 2008, which proved elevated at 6.3. Repeat PSA came backat 8.2. This prompted biopsy, which was performed by Dr. Escalante on March 27, 2009. Pathology demonstrated Seattle score 4+3=7/10 tumor involving 30% of one [...] and he received 7920 cGy at the [facility]. Treatment was completed on 08/08/2009 Prostate cancer [...] Problem List: 1. Adenocarcinoma of the prostate. [id number]. 30% of left apex core had David 4+3 and 2% of right base core with Seattle 3+4. SAMIR-, Pretreatment PSA of 8.2. Radiation [...] facility-administered medications on file prior to visit. History Social History ??? Marital Status: Spouse Name: N/A Number of Children: N/A ??? Years of Education: N/A Occupational History ??? Not on file. Social History Main Topics ??? Smoking status: Never Smoker ??? Smokeless tobacco: Not on file ??? Alcohol Use: No ??? Drug Use: No ??? Sexual Activity: No Other Topics Concern ??? Not on [...] well. 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 He also continues to volunteer at the [employer] on weekends. He continues on the [employer] and enjoys this activity and the socialization very much. He still enjoys his cat [employer] and reports no concerns today. He indicates [...] and off for which he takes tylenol as needed. He denies any urinary problems. His IPSS score is 6. He indicates that he is very pleased with his urinary function. He denies dysuria, hematuria and incontinence. International Prostate Symptom Score Total Score__6_ 0 1 2 3 4 5 Not [...] unexpected weight change. 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 HENT: Negative. Eyes: Negative. Respiratory: Negative. Negative for cough, chest tightness, shortness of breath and wheezing. Mild ERICKSON Cardiovascular: Negative. Negative for chest pain, palpitations and leg swelling. Gastrointestinal: Negative. Negative for nausea, vomiting, abdominal pain, diarrhea, constipation, blood in stool, abdominal distention and anal bleeding. 1-3 BM early am. No hematochezia at this time Rare BRB if he strains Genitourinary: Negative. Negative for dysuria, urgency, frequency, hematuria, flank pain, decreasedurine volume, enuresis and difficulty urinating. See IPSS and interim history Musculoskeletal: Positive for arthralgias. Negative for back pain and joint swelling. Feet cramp at night for years Arthritis knees are feeling better . Skin: Negative. Neurological: Negative. Negative for dizziness, weakness, light-headedness, numbness and headaches. Hematological: Negative. Psychiatric/Behavioral: Negative. Vitals Office Visit from 08/31/2015 in [facility] Radiation Oncology Weight - Scale 74.617 kg (164 lb 8 oz) Temp 36.4 ??C (97.5 ??F) Temp Source Oral Heart Rate 58 Heart Rate Source Right, NIBP Resp 16 BP 150/69 mmHg BP Location Right arm Patient Position Sitting SpO2 100 % KPS: 100 IPSS 2 BETH--not sexually active Objective: Physical Exam Constitutional: He is oriented [...] Vitals reviewed. Laboratory Studies: Date PSA Testosterone 08/18/2015 0.40 08/04/2014 0.50 0.50 02/11/2013 0.68 08/14/2012 0.85 02/26/2012 0.88 375 08/29/2011 1.03 375 02/26/2011 2.24 08/11/2010 2.67 05/03/2010 4.67 402 (range 181-772) 02/01/2010 4.42 10/23/2009 5.3 10/20/2008 8.2 Assessment and Plan: Adenocarcinoma of the prostate.[id number]. 30% of left apex core had David 4+3 and 2% of right base core with David 3+4. SAMIR-, Pretreatment PSA of 8.2. Mr Martin was treated with external beam radiation 79.2 Gy completed on 08/08/2009. Patient PSA remains low and is now at a new chinedu of 0.40 with no concerning late effects from treatment. Clinically and functionally he is doing very well. H/O hematochezia: Patient had a normal colonoscopy in March 2011. Patient will call if bleeding occurs and ispersistent. He was encouraged to use stool softener [...] Priority Date/Time Associated Diagnosis Comments LAB SCAN 08/18/2015 12:00 AM EDT documented in this encounter Results * SCAN DOC: LAB (08/18/2015 12:00 AM EDT) Scanning Provider MEDIA MGR SCAN EXT O RDR/RSLT documented in this encounter Visit Diagnoses Diagnosis Malignant neoplasm of prostate documented in this encounter Care Teams Heavy Threader Relationship Specialty Start Date End Date Abeba Altman APRN PCP - General 10/09/10 08/29/16 documented as of this encounter
--- OUTSIDE RECORDS SUMMARY | 2024-09-03 17:52 | XMS_ITS | Encounter Summary ---
Author Organization [facility] Address [facility] [place] [address] Care Team Providers Care Accountant Machine Processing Name Role Phone Edgar Marie MD Primary Care Provider [phone] Reason for Visit * Reason Comments Radiation Follow-up prostate cancer Encounter Details Date Type Department Care Team (Late st Contact Info) Description 08/28/2017 2:30 PM EDT Office Visit Radiation Oncology at [address] [phone] Juli Silva APRN [address] [place] [address] [place] [address] Malignant neoplasm of prostate Social [...] Sign Reading Time Taken Comments Blood Pressure 129/71 08/28/2017 2:28 PM EDT Pulse 96 08/28/2017 2:28 PM EDT Temperature 36.7 ??C (98.1 ??F) 08/28/2017 2:28 PM ED T Respiratory Rate 18 08/28/2017 2:28 PM EDT Oxygen Saturation 99% 08/28/2017 2:28 PM EDT Inhaled Oxygen Concentration - - Weight 74.8 kg (164 lb 12.8 oz) 08/28/2017 2:28 PM EDT Height - - Body Mass Index 27.79 08/29/2016 9:08 AM EDT documented in this encounter Patient Instructions * Patient Instructions* Juli Silva APRN - 08/28/2017 2:30 PM EDT Date PSA Testosterone 0.2 08/06/2016 0.40 08/18/2015 0.40 08/04/2014 0.50 0.50 02/11/2013 0.68 08/14/2012 0.85 02/26/2012 0.88 375 08/29/2011 1.03 375 02/26/2011 2.24 08/11/2010 2.67 05/03/2010 4.67 402 (range 181-772) 02/01/2010 4.42 10/23/2009 5.3 10/20/2008 8.2 Vitals Office Visit from 08/28/2017 in Radiation Oncology at [facility] Weight - Scale 74.8 kg (164 lb 12.8 oz) Temp 36.7 ??C (98.1 ??F) Temp Source Oral Heart Rate 96 Heart Rate Source NIBP Resp 18 BP 129/71 BP Location Left arm Patient Position Sitting SpO2 99 % documented in this encounter Progress Notes * Juli Silva APRN - 08/28/2017 2:30 PM EDT Patient ID: Marleny Martin is a 77 y.o. male who is in radiation oncology [...] Escalante on March 27, 2009. Pathology demonstrated Laquey score 4+3=7/10 tumor involving 30% of one [...] and he received 7920 cGy at the [facility]. Treatment was completed on 08/08/2009 [...] required Post Primary Therapy - Chinedu Date 08/18/2017 Post Primary Therapy - Chinedu PSA 0.20 Problem List: 1. Adenocarcinoma of the prostate. [id number]. 30% of left apex core had David 4+3 and 2% of right base core with Laquey 3+4. SAMIR-, Pretreatment PSA of 8.2. Radiation [...] STAPEDES SURGERY bilateral No Known Allergies Medications 08/28/17 1458 Medication Sig Taking? LOSARTAN POTASSIUM (COZAAR ORAL) [...] this. 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 He enjoys his [employer] Advance directive: Patient wants his step daughters to be his health care agent. They are aware andhe has made plans to get AD done. He was asked to bring copy to clinic. Patient indicates that he has no regular contact with his stepchildren--only if he runs into them around town He is unhappy about this. 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 He enjoys [employer] and is part of a league. He enjoys his [employer] Interim History: Mr Martin reports that he has been well. Since he was seen in clinic he had one episode of severe N/V and diarrhea which led to dehydration. He went to the ER and he was found to have microscopic blood in his urine. He had a followup CT scan and cystoscopy and he is scheduled for followup with Dr Saxena next month. 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 He also continues to volunteer at the [facility] on weekends. He continues on the [employer] and enjoys this activity and the socialization [...] unexpected weight change. 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 HENT: [...] BETH--not sexually active Vitals Office Visit from 08/28/2017 in Radiation Oncology at [facility] Weight - Scale 74.8 kg (164 lb 12.8 oz) Temp 36.7 ??C (98.1 ??F) Temp Source Oral Heart Rate 96 Heart Rate Source NIBP Resp 18 BP 129/71 BP Location Left arm Patient Position Sitting SpO2 99 % Objective: Physical Exam Constitutional: He is [...] Vitals reviewed. Laboratory Studies: Date PSA Testosterone 0.2 08/06/2016 0.40 08/18/2015 0.40 08/04/2014 0.50 0.50 02/11/2013 0.68 08/14/2012 0.85 02/26/2012 0.88 375 08/29/2011 1.03 375 02/26/2011 2.24 08/11/2010 2.67 05/03/2010 4.67 402 (range 181-772) 02/01/2010 4.42 10/23/2009 5.3 10/20/2008 8.2 Assessment and Plan: Adenocarcinoma of the prostate.[id number]. 30% of left apex core had David 4+3 and 2% of right base core with Laquey 3+4. SAMIR-, Pretreatment PSA of 8.2. Mr Martin was treated with external beam radiation 79.2 Gy completed on 08/08/2009. Patient PSA remains low and is at a new chinedu of 0.2 which is reassuring. He has no concerning late effects from [...] prostate documented in this encounter Care Teams Accountant Machine Processing Relationship Specialty Start Date End Date Edgar Marie MD PCP - General Family Medicine 08/30/16 documented as of this encounter
--- OUTSIDE RECORDS SUMMARY | 2024-09-03 17:52 | XMS_ITS | Encounter Summary ---
Author Organization [facility] [place] [address] Care Team Providers Care Brazer Electronic Name Role Phone Edgar Marie MD Primary Care Provider [phone] Encounter Details Date Type Department Care Team (Late st Contact Info) Description 05/29/2020 Tele[place] [phone] Nay Combs Social History Tobacco Use Types Packs/Day [...] encounter Miscellaneous Notes * Telephone Encounter - Nay Combs - 05/29/2020 1:12 PM EDT Call placed to [facility] office to request updated records on pt who is being seen by Miguel Hinds at 4pm today. Had to leave a for Joan, who I was transferred to, as she is the study coordinator. Left message asking Joan to fax any labs more recent than last August (especially LFTs, CBC and anyhepatitis testing), as well as any imaging results (noted that pt had an enlarged spleen but no imag ing to support this). I asked Joan to please fax this to our stat fax, as soon as possible. documented in this encounter Plan of Treatment Not on file documented as of this encounter Visit Diagnoses Not on filedocumented in this encounter Care Teams Brazer Electronic Relationship Specialty Start Date End Date Edgar Marie MD PCP - General Family Medicine 08/30/16 documented as of this encounter
--- OUTSIDE RECORDS SUMMARY | 2024-09-03 17:52 | XMS_ITS | Encounter Summary ---
Author Organization [facility] [place] [address] Care Team Providers Care Auto Clutch Specialist Name Role Phone Edgar Marie MD Primary Care Provider [phone] Reason for Visit * Auth/Cert Specialty Diagnoses / Procedures Referred By Contac t Referred To Contact Diagnoses Portal hypertension Portal hypertension rule out ??esophageal varices Repeat EGD in 3-4 wks Procedures PRO UPPER GI ENDOSCOPY, DIAGNOSTIC EGD, UPPER GI ENDOSCOPY Referral ID Status Reason Start Date Expiration Date Visits Re quested Visits Authorized [id number] 1 1 Encounter Details Date Type Department Care Team (Late st Contact Info) Description 09/06/2020 3:00 PM EDT - 09/06/2020 3:45 PM EDT [place] [address] Randolph Vásquez MD [facility] [place] [address] EGD, UPPER GI ENDOSCOPY (WRVU 2.09) Social [...] Sign Reading Time Taken Comments Blood Pressure 146/63 09/06/2020 3:45 PM EDT Pulse 80 09/06/2020 3:45 PM EDT Temperature 37.7 ??C (99.9 ??F) 09/06/2020 2:15 PM ED T Respiratory Rate 18 09/06/2020 3:45 PM EDT Oxygen Saturation 98% 09/06/2020 3:45 PM EDT Inhaled Oxygen Concentration - - [...] the day after the procedure, use an hutn-zuw-tqdeshd spray to numb your throat. Sucking on [...] occurs, please contact your Doctor. Please call [phone] before 8pm Mon-Fri with problems, questions or concerns. If you call after 8pm or on weekends, call the Hospital at [phone] and ask to speak to the Neurology Technologist collection technician and the drone operator will contact that person for you. When should you call for help? Call [phone] anytime you think you may need emergency [...] any problems. Where can you learn more? [facility] View your After Visit Summary and more online at [email or web address] If you would like to [...] cost to you. Content Version: 12.2 ?? [id number] [employer]. Care instructions adapted under license by [facility]. If you have questions about a medical condition or this instruction, always ask your healthcare professional. [employer] disclaims any warranty or liability for your [...] Vásquez MD - 09/06/2020 3:56 PM EDT [facility] Patient Name: Marleny Martin : [id number] MR#: [id number] Case Date: 09/06/2020 Surgeon: Surgeon(s) and Role: [...] Associated Diagnosis Comments Upper GI Endoscopy, Diagnostic (29216) 09/06/2020 3:37 PM EDT Portal hypertension rule out ??esophageal varices Repeat EGD in 3-4 wks UPPER GI ENDOSCOPY Routine 09/06/2020 3: 27 PM EDT documented in this encounter Results * UPPER GI ENDOSCOPY (09/06/2020 3:27 PM EDT) UPPER GI ENDOSCOPY [facility] Procedure Date: 09/06/2020 3:27 PM ? Patient Name: Marleny Martin ? Date of : 1940 ? Age: 80 ? Order #: [id number] ? Instrument Name: [id number] ? Procedure: ? Upper GI endoscopy Indications: [...] the physician, the nurse ? and the operator technician. The procedure was ? verified in [...] personally performed the entire procedure. ? Randolph Ansari Thalia, 09/06/2020 4:00:30 PM Number of Addenda: 0 Note Initiated On: 09/06/2020 3:27 PM PROVATION 09/06/2020 3:27 PM EDT Edgar Marie MD GENERAL SURGICAL ORD ERABLES PROVATION documented in this encounter Visit Diagnoses Not on filedocumented in this encounter Administered Medications Inactive Administered Medications - up to 3 most recent administrations Medication Order MAR Action Action Date Dose Rate Site fentaNYL 50 mcg/mL multi-dose injection ONCE PRN, Starting on Fri09/06/20 at 1542, Until Fri09/06/20 at 1922, Intra-Operative (Intra-Procedure), Routine Given 09/06/2020 3:48 PM EDT 50 mcg Given 09/06/2020 3:45 PM EDT 50 mcg Given 09/06/2020 3:42 PM EDT 50 mcg lactated ringers infusion 100 mL/hr, Intravenous, CONTINUOUS, Starting on Fri09/06/20 at 1430, Until Fri09/06/20 at 1658, Endoscopy (Day of Procedure) New Bag 09/06/2020 2:20 PM EDT 100 mL/hr 100 mL/hr midazolam (PF) (VERSED) multi-dose injection ONCE PRN, Starting on Fri09/06/20 at 1542, Until Fri09/06/20 at 1922, Intra-Operative (Intra-Procedure), Routine Given 09/06/2020 3:52 PM EDT 1 mg Given 09/06/2020 3:48 PM EDT 1 mg Given 09/06/2020 3:45 PM EDT 1 mg documented in this encounter Active and Recently Administered Medications Times are shown in EDT. Continuous Medication Order 09/04/2020 09/05/2020 09/06/2020 lactated ringers infusion (CANCELED) 100 mL/hr, Intravenous, CONTINUOUS, Starting on Fri09/06/20 at 1430, Until Fri09/06/20 at 1658, Endoscopy (Day of Procedure) 1420 (New Bag - Prov ider: Isabella Mcdowell, GREGORIO) PRN Medication Order 09/04/2020 09/05/2020 09/06/2020 fentaNYL [...] Corbin Somers RN)[phone] (Given - Provider: Corbin Somers RN) documented in this encounter Care Teams Auto Clutch Specialist Relationship Specialty Start Date End Date Edgar Marie MD PCP - General Family Medicine 08/30/16 documented as of this encounter
--- OUTSIDE RECORDS SUMMARY | 2024-09-03 17:52 | XMS_ITS | Encounter Summary ---
Author Organization [facility] Address [facility] [place] [address] Care Team Providers Care Rfid Developer Name Role Phone Edgar Marie MD Primary Care Provider [phone] Reason for Visit * Reason Comments Radiation Follow-up prostate cancer Encounter Details Date Type Department Care Team (Late st Contact Info) Description 09/23/2019 9:00 AM EST Office Visit Radiation Oncology at [address] [phone] Juli Silva APRN [address] [place] [address] DR RADIATION ONCOLOGY [place], [place] [id number] Malignant neoplasm of prostate Social History Tobacco [...] Sign Reading Time Taken Comments Blood Pressure 139/66 09/23/2019 8:28 AM EST Pulse 74 09/23/2019 8:28 AM EST Temperature 36.6 ??C (97.9 ??F) 09/23/2019 8:28 AM ES T Respiratory Rate 18 09/23/2019 8:28 AM EST Oxygen Saturation 98% 09/23/2019 8:28 AM EST Inhaled Oxygen Concentration - - Weight 78.9 kg (174 lb) 09/23/2019 8:28 AM EST Height 162.6 cm (5' 4) 09/23/2019 8:28 AM EST Body Mass Index 29.87 09/23/2019 8:28 AM EST documented in this encounter Patient Instructions * Patient Instructions* Juli Silva APRN - 09/23/2019 9:00 AM EST Date PSA Testosterone 09/03/2019 0.3 08/04/2018 0.3 08/18/2017 0.2 08/06/2016 0.40 08/18/2015 0.40 08/04/2014 0.50 0.50 02/11/2013 0.68 08/14/2012 0.85 02/26/2012 0.88 375 08/29/2011 1.03 375 02/26/2011 2.24 08/11/2010 2.67 05/03/2010 4.67 402 (range 181-772) 02/01/2010 4.42 10/23/2009 5.3 10/20/2008 8.2 documented in this encounter Progress Notes * Juli Silva APRN - 09/23/2019 9:00 AM EST Patient ID: Marleny Martin is a 79 y.o. 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 Treatment was completed on 08/08/2009 Prostate cancer history and treatment summary reviewed with patient 08/18/2014--see after visit summary. Prostate Cancer Notes 08/26/2013 Date of Presentation 10/20/2008 Age at Presentation 68 PSA at Presentation 8.2 Presence of Symptoms at Presentation negative Ethnicity White Result of DOMINIQUE abnormal Date of TRUS and Biopsy 03/27/2009 Volume in cc 29.5 cc Almo grade/score a+b=c 4+3=7 Total Cores 14 cores [...] Problem List: 1. Adenocarcinoma of the prostate. [id number]. 30% of left apex core had Almo 4+3 and 2% of right base core with Almo 3+4. SAMIR-, Pretreatment PSA of 8.2. Radiation [...] the 7 Arthritis feet--treated with tylenol 8. H/O Radiation proctitis 9. Chronic renal failure-09/03/2019- creatinine 1.42 - and GFR of 48.34 10 08/19/2016--abnormal chest XR with prominent R hilum -PCP ordered chest CT Past Surgical History: Procedure Laterality Date ??? CARPAL TUNNEL RELEASE Right ??? STAPEDES SURGERY bilateral No Known Allergies Medications 09/23/19 0837 Medication Sig Taking? omeprazole (PRILOSEC) 20 mg Capsule, Delayed Release(E.C.) TAKE 1 CAPSULE BY MOUTH ONCE DAILY Yes SPIRIVA RESPIMAT 2.5 mcg/actuation Mist INHALE 2 SPRAY(S) BY MOUTH ONCE DAILY Yes LOSARTAN POTASSIUM (COZAAR ORAL) Yes hydrochlorothiazide (HYDRODIURIL) 25 mg tablet Yes albuterol (PROAIR HFA) 90 mcg/Actuation inhaler Yes aspirin 325 mg tablet Yes CALCIUM CARBONATE/VITAMIN D3 (CALCIUM 600 WITH VITAMIN D3 ORAL) Yes Social History Socioeconomic History ??? Marital status: Spouse name: Not on file ??? Number of children: Not on file ??? Years of education: Not on file ??? Highest education level: Not on file Occupational History ??? Not on file Social Needs ??? Financial resource strain: Not on file ??? Food insecurity: Worry: Not on file Inability: Not on file ??? Transportation needs: Medical: Not on file Non-medical: Not on file Tobacco Use ??? Smoking status: Never Smoker ??? Smokeless tobacco: Never Used Substance and Sexual Activity ??? Alcohol use: No ??? Drug use: No ??? Sexual activity: Never Lifestyle ??? Physical activity: Days per week: Not on file Minutes per session: Not on file ??? Stress: Not on file Relationships ??? Social connections: Talks on phone: Not on file Gets together: Not on file Attends mormonism service: Not on file Active member of club or organization: Not on file Attends meetings of clubs or organizations: Not on file Relationship status: Not on file ??? Intimate partner violence: Fear of current or ex partner: Not on file Emotionally abused: Not on file Physically abused: Not on file Forced sexual activity: Not on file Other Topics Concern ??? Not on file Social History Narrative Patient indicates that he has no regular contact with his stepchildren--only if he runs into them around town He is unhappy about this. 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 He enjoys bowling and is par to of a league. He enjoys his cat Bonilla Advance directive: Patient wants his step daughters to be his health care agent. They are aware andhe has made plans to get AD done. He was asked to bring copy to clinic. Interim History: Mr Martin reports that he has been well. Since he was seen in clinic he was hospitalized for pneumonia again last winter. He has received his flu immunization for this year and he has had a pneumonia vaccine. He also had surgery to his right hand for carpal tunnel. He reports that he has otherwise been generally well and is happy to be busy. 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 He reports no concerning late effects from his previous XRT. His bowels are regular and he has occ BRB if he strains. This is about once a month and resolves with no intervention He has no abdominal pain. He denies any urinary problems. See survey below. He has no dysuria, no hematuria and no incontinence. He is not sexually active - Expanded Prostate Cancer Index Composite For Clinical Practice (Epic-Cp) Question 09/23/2019 ??8:40 AM EST - Filed by Patient on 09/23/2019 Urinary function problem No Problem Urinary control Total control # of pads used per day None Urinary dripping/leakage problem No problem 5. How big a problem, if any, has each of the following been for you? Pain or burning with urination No problem 5. How big a problem, if any, has each of the following been for you? Weak urine stream/incomplete bladder emptying No problem 5. How big a problem, if any, has each of the following been for you? Need to urinate frequently No problem 6. How big a problem, if any, has each of the following been for you? Rectal pain or urgency of bowel movements No problem 6. How big a problem, if any, has each of the following been for you? Increased frequency of your bowel movements No problem 6. How big a problem, if any, has each of the following been for you? Bloody stools No problem Ability to reach orgasm Very good Quality of your erections Not firm enough for any sexual activity Problem with sexual function or lack of it No problem 10. How big a problem, if any, has each of the following been for you? Hot flashes or breast tenderness/enlargement No problem 10. How big a problem, if any, has each of the following been for you? Feeling depressed No problem 10. How big a problem, if any, has each of the following been for you? Lack of energy No problem Urinary Incontinence Symptom Score (range: 0 - 12) 0 Urinary Irritation/Obstructive Symptom Score (range: 0 - 12) 0 Bowel Symptom Score (range: 0 - 16) 0 Vitality/Hormonal Symptom Score (range: 0 - 12) 0 Overall Prostate Cancer QOL Score (range: 0 - 60) 0 Q - Prostate Followup Survey Question 09/23/2019 ??8:54 AM EST - Filed by Patient on 09/23/2019 Reason for visit Other Incomplete emptying Not at all Frequency Almost always Intermittency Not at all Urgency Not at all Weak Stream Not at all Straining Not at all Nocturia 2 times Quality of life Pleased Total IPSS Score (range: 0 - 35) 7 ( Mild LUTS) Confidence, level - past 6 months Very low Penetration - past 6 months No sexual activity Penetration, maintain - past 6 months Did not attempt intercourse Erection, maintain - past 6 months Did not attempt intercourse Sexual satisfaction - past 6 months Did not attempt intercourse Sexual Health in Men (range: 1 - 21) 1 (Severe ED) Review of Systems Constitutional: Negative. Negative for activity change, appetite change, fatigue, fever and unexpected weight change. 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 HENT: Negative. Eyes: Negative. Respiratory: Positive for cough. Negative for chest tightness, shortness of breath and wheezing. Mild ERICKSON with walking uphill or walking fast Had pneumonia over last winter + am cough with white sputum Cardiovascular: Negative. Negative for chest pain, palpitations and leg swelling. Gastrointestinal: Negative. Negative for abdominal distention, abdominal pain, anal bleeding, bloodin stool, constipation, diarrhea, nausea and vomiting. 1-3 BM early am. Occ BRB if strain Genitourinary: Negative. Negative for decreased urine volume, difficulty urinating, dysuria, enuresis, flank pain, frequency, hematuria and urgency. See IPSS and interim history Musculoskeletal: Negative for arthralgias, back pain and joint swelling. S/p carpal tunnel surgery several months ago--doing well. Skin: Negative. Neurological: Negative. Negative for dizziness, weakness, light-headedness, numbness and headaches. Hematological: Negative. Psychiatric/Behavioral: Negative. Negative for sleep disturbance. KPS:100 BETH--not sexually active Vitals Office Visit from 09/23/2019 in Radiation Oncology at [facility] Weight 78.9 kg (174 lb) Height 162.6 cm (5' 4) BSA (Calculated - sq m) 1.89 sq meters BMI (Calculated) 29.86 Temp 36.6 ??C (97.9 ??F) Temp src Oral Heart Rate 74 Heart Rate Source NIBP Resp 18 BP 139/66 BP Location Right arm Patient Position Sitting SpO2 98 % [...] Judgment and thought content normal. Vitals reviewed. 09/03/2019--LABS DONE BY PCP RU=559, K=4.2, TH=759, CO2=23.9, ANION GAP=11.1 H, BUN=15, CREAT=1.42, EGFR=48.34, GLU=70, CA=8.3 L, IRON=76, DWES=479, TRANS=22, T BILI=0.3, AST=24, ALT=24, ALK P=152 H, T PROT=8.0, ALB=2.9 L, WBC=4.72, RBC=3.93, HGB=10.8, HCT=33.5, MPV=12.1 H, ORJJ=685 L Laboratory Studies: Date PSA Testosterone 09/03/2019 0.3 08/04/2018 0.3 08/18/2017 0.2 08/06/2016 0.40 08/18/2015 0.40 08/04/2014 0.50 0.50 02/11/2013 0.68 08/14/2012 0.85 02/26/2012 0.88 375 08/29/2011 1.03 375 02/26/2011 2.24 08/11/2010 2.67 05/03/2010 4.67 402 (range 181-772) 02/01/2010 4.42 10/23/2009 5.3 10/20/2008 8.2 Assessment and Plan: Adenocarcinoma of the prostate.[id number]. 30% of left apex core had Almo 4+3 c SAMIR-, Pretreatment PSA of 8.2. Mr Martin was treated with external beam radiation 79.2 Gy completed on 08/08/2009. Patient PSA remains low and is 0.3. He has no concerning late effects from treatment. Clinically and functionally he is doing well. He is now ten years from completion of treatment with good outcomes and no evidence of disease. We discussed that ongoing surveillance includes yearly PSA at this time and this can be managed by his PCP. If his PSA were to rise to 2.2 this would be considered biochemical failure and a referral to medical oncology would be indicated. He is in agreement with this plan. H/O hematochezia: Patient had a normal colonoscopy in March 2011. Patient will call if bleeding occurs and is persistent. He was encouraged to use stool softener to prevent hard stool. and straining. Thank you for the opportunity to participate in the care of this pleasant man. documented in this encounter Plan of Treatment Not on file documented as of this encounter Visit Diagnoses Diagnosis Malignant neoplasm of prostate documented in this encounter Care Teams Rfid Developer Relationship Specialty Start Date End Date Edgar Marie MD PCP - General Family Medicine 08/30/16 documented as of this encounter
--- OUTSIDE RECORDS SUMMARY | 2024-09-03 17:52 | XMS_ITS | Encounter Summary ---
Author Organization [facility] [place] [address] Care Team Providers Care Straddle Carrier Operator Name Role Phone Edgar Marie MD Primary Care Provider [phone] Encounter Details Date Type Department Care Team (Late st Contact Info) Description 07/13/2020 3:30 PM EDT Office Visit [place] [phone] Miguel Hinds PA [address] [place] [address] [place] [address] Cryptogenic cirrhosis (Primary Dx); Thrombocytopenia Social History Tobacco Use Types Packs/Day Years [...] Sign Reading Time Taken Comments Blood Pressure 153/68 07/13/2020 3:35 PM EDT Pulse 102 07/13/2020 3:35 PM EDT Temperature - - Respiratory Rate - - Oxygen Saturation 98% 07/13/2020 3:35 PM EDT Inhaled Oxygen Concentration - - Weight 80.3 kg (177 lb 1.6 oz) 07/13/2020 3:35 P M EDT Height 167.6 cm (5' 6) 07/13/2020 3:35 PM EDT Body Mass Index 28.58 07/13/2020 3:35 PM EDT documented in this encounter Progress Notes * Miguel Hinds PA - 07/13/2020 3:30 PM EDT Gastroenterology and Hepatology Follow Up Note [...] neg, HBsAb neg, HAV Ab total neg -No EGD history (expected Jul 2020) -Imaging: US 07/13/20 with no liver lesions, [...] Restrictive lung disease J98.4 ??? Hypertension I10 Interval History: Mr. Marleny Martin is 80 y.o. with a history of abnormal liver function testing and chronic thrombocytopenia, found to have likely cirrhosis indicated on Fibroscan when we last met on 05/29/20 in clinic. He follows up today after having an ultrasound earlier in the day. He has not been able to schedule his upper endoscopy because he tells me he does not cook pickled meat his phone if he does not recognize the phone number, and he does not have an answering machine. He was under the impression he was having that done today instead of the ultrasound, but was fasting appropriately for the ultrasound. He finally got new hearing aids which are working wonders. He denies any new changes in his health since we met last month. He recalls a little bit of will bediscussed, but not everything. MEDICATIONS: Current Outpatient Medications Medication Sig Dispense Refill ??? loratadine (Claritin) 10 mg Tablet TAKE 1 TABLET BY MOUTH ONCE DAILY FOR ALLERGIES ??? losartan (COZAAR) 100 mg Tablet TAKE 1 TABLET BY MOUTH ONCE DAILY FOR BLOOD PRESSURE ??? magnesium 250 mg Tablet Take by mouth. ??? PSYLLIUM HUSK ORAL Take by mouth. ??? omeprazole (PRILOSEC) 20 [...] Reactions ??? Dwayne Inhibitors PHYSICAL EXAMINATION: Vitals: 07/13/20 1535 BP: 153/68 BP Location (NB): Left arm Patient Position: Sitting BP Cuff Sizes: Adult (25-34 cm) Pulse: (!) 102 SpO2: 98% Weight: 80.3 kg (177 lb 1.6 oz) Height: 167.6 cm (5' 6) Body mass index is 28.58 kg/m??. Constitutional: Well appearing elderly man, appropriate, [...] Core Ab Latest Ref Range: Negative Negative Imaging: Ultrasound today: LIVER: ------ Right Lobe Length: 13.9 cm [...] vein. No ascites. ASSESSMENT & PLAN: Marleny Martin is a 80 y.o. male with a history of fluctuating transaminases and chronic thrombocytopenia concerning for possible chronic liver disease who was found on FibroScan last month to very likely have cirrhosis with portal [...] cryptogenic cirrhosis. He has very well compensated, Qxldp-Rrcvhdwo-Tigd class A cirrhosis. We reviewed results of today's ultrasound which confirmed a cirrhotic appearing liver with nodular capsule, mild splenomegaly, but no concerning liver lesions or ascites. He still needs an upper endoscopy for varices surveillance and we again reviewed pathophysiology of cirrhosis and portal hypertension. He does not have a very clear grasp on his condition, and I feel this will take several appointments for him to completely understand why we are doing this testing, but he is agreeable to arrange the endoscopy now. We were able to get him on the phone today in the clinic room with an endoscopy extrusion supervisor and he is now currently scheduled for 08/08. I do wonder if perhaps we should [...] Will discuss with liver team. -Upper endoscopy now arranged for 08/08. If he is found to have large varices, we would likely treatwith serial band ligation rather than nonselective beta- moses given his history of restrictive lung disease. -Diet: He should focus on low carbohydrate, [...] occasional BRBPR, this is likely hemorrhoidal and he should continue jrlp-kku-pvypypt fiber supplement. If this continues despite supplementation, we will arrange for colonoscopy and or banding of his hemorrhoids. -He is due for colonoscopy next year anyway based on his history of a normal colonoscopy in 2010. -He should continue to remain abstinent from all alcohol. -Recommend combined HAV/HBV vaccine series through PCP office. -Pneumococcal vaccine recommended every 5 years. Influenza vaccine recommended annually. -Hepatology follow-up in person in clinic approximately 3 months for ongoing chronic management discussion. 28 of this 30 minute visit was in btys-da-qcfw discussion regarding disease, prognosis and treatment. 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
--- OUTSIDE RECORDS SUMMARY | 2024-09-03 17:52 | XMS_ITS | Encounter Summary ---
Author Organization Formerly [facility] [place] [address] Care Team Providers Care Flag Car Driver Name Role Phone Edgar Marie MD Primary Care Provider [phone] Reason for Visit * Auth/Cert Specialty Diagnoses / Procedures Referred By Contargentina t Referred To Contact Diagnoses Esophageal varices varices screening Procedures PRO UPPER GI ENDOSCOPY, DIAGNOSTIC EGD, UPPER GI ENDOSCOPY Referral ID Status Reason Start Date Expiration Date Visits Re quested Visits Authorized [id number] 1 1 Encounter Details Date Type Department Care Team (Late st Contact Info) Description 08/08/2020 1:04 PM EDT - 08/08/2020 1:34 PM EDT Surgery [place] [address] Yung Murillo MD [facility] [place] [address] EGD, W BAND LIGATION OF ESOPHAGEAL/GASTRIC VARICES (WRVU 4.4) Social History Tobacco Use Types Packs/Day Years [...] Sign Reading Time Taken Comments Blood Pressure 175/89 08/08/2020 12:27 PM EDT Pulse 83 08/08/2020 12:27 PM EDT Temperature 36.7 ??C (98.1 ??F) 08/08/2020 12:27 PM E DT Respiratory Rate 18 08/08/2020 12:27 PM EDT Oxygen Saturation 100% 08/08/2020 12:27 PM EDT Inhaled Oxygen Concentration - - Weight - - Height - - Body Mass Index - - documented in this encounter Discharge Instructions * Discharge Instructions* Annemarie Washington, RN - 08/08/2020 2:21 PM EDT Images [...] the day after the procedure, use an gjdu-yqo-rivfhfe spray to numb your throat. Sucking on [...] occurs, please contact your Doctor. Please call [phone] before 8pm Mon-Fri with problems, questions or concerns. If you call after 8pm or on weekends, call the Hospital at [phone] and ask to speak to the Automatic Paint Sprayer Operator winder contort operator and the chlorination operator will contact that person for you. When should you call for help? Call [phone] anytime you think you may need emergency [...] any problems. Where can you learn more? [facility] View your After Visit Summary and more online at [email or web address] If you would like to provide feedback about your hospital experience, please call the Office of Patient and Family Relations at . If you have received this After Visit Summary in error, please immediately return it in person to the department, or notify the - Privacy Office by calling toll free at between the hours of 8AM and 5PM to arrange for our retrieval of the documents at no cost to you. Content Version: 12.2 ?? 0741-6930 [email or web address]. Care instructions adapted under license by [facility]. If you have questions about a medical condition or this instruction, always ask your healthcare professional. [email or web address] disclaims any warranty or liability for your [...] more? Visit our health information library at [email or web address] You can also view health information on [employer], your personal patient account. Log in or sign uptoday. Enter E135 in the search box to learn more about Variceal Banding: What to Expect at Home. Current as of: March 01, 2020?Content Version: 12.6 ?? 2808-4553 [email or web address]. Care instructions adapted under license by [facility]. If you have questions about a medical condition or this instruction, always ask your healthcare professional. [employer] disclaims any warranty or liability for your [...] Murillo MD - 08/08/2020 2:08 PM EDT [place] Operative Note Patient Name: Marleny Martin : [id number] MR#: [id number] Case Date: 08/08/2020 Surgeon: Surgeon(s) and Role: [...] Diagnosis Comments Upper Gi Endoscopy, Ligat Varix (27438) 08/08/2020 1:52 PM EDT varices screening UPPER GI ENDOSCOPY Routine 08/08/2020 1: 45 PM EDT documented in this encounter Results * UPPER GI ENDOSCOPY (08/08/2020 1:45 PM EDT) UPPER GI ENDOSCOPY [facility] Endoscopy ___ Procedure Date: 08/08/2020 1:45 PM ? Patient Name: Marleny Martin ? Date of : 1940 ? Age: 80 ? Order #: [id number] ? Instrument Name: [id number] ? ___ Procedure: ? Upper GI endoscopy Indications: ? Portal hypertension rule out ? esophageal varices Providers: ? Yung Murillo, Randolph Rayo, ? RN, Blake Craft, Chemical Processing Equipment Repairer Referring MD: ? Medicines: ? Fentanyl 100 [...] mcg/mL multi-dose injection ONCE PRN, Starting on Fri08/08/20 at 1357, Until Fri08/08/20 at 1737, Intra-Operative (Intra-Procedure), Routine Given 08/08/2020 2:07 PM EDT 25 mcg Right Arm Given 08/08/2020 2:04 PM EDT 25 mcg Ri ght Arm Given 08/08/2020 1:57 PM EDT 50 mcg Ri ght Arm lactated ringers infusion 100 mL/hr, Intravenous, CONTINUOUS, Starting on 08/08/20 at 1245, Until 08/08/20 at 1737, Endoscopy (Day of Procedure) midazolam (PF) (VERSED) multi-dose injection ONCE PRN, Starting on 08/08/20 at 1357, Until 08/08/20 at 1737, Intra-Operative (Intra-Procedure), Routine Given 08/08/2020 2:07 PM EDT 0.5 mg Right Arm Given 08/08/2020 2:04 PM EDT 1 mg Ri ght Arm Given 08/08/2020 2:01 PM EDT 0.5 mg Ri ght Arm documented in this encounter Active and Recently Administered Medications Times are shown in EDT. Continuous Medication Order 08/06/2020 08/07/2020 08/08/2020 lactated ringers infusion 100 mL/hr, Intravenous, CONTINUOUS, Starting on 08/08/20 at 1245, Until 08/08/20 at 1737, Endoscopy (Day of Procedure) 1245 (Due) PRN Medication Order 08/06/2020 08/07/2020 08/08/2020 fentaNYL 50 mcg/mL multi-dose injection (CANCELED) ONCE PRN, Starting on 08/08/20 at 1357, Until 08/08/20 at 1737, Intra-Operative (Intra-Procedure), Routine 1357 (Given - Provid er: Randolph Rayo RN)1404 (Given - Provider: Randolph Rayo RN)1407 (Given - Provider: Randolph Rayo RN) midazolam (PF) (VERSED) multi-dose injection (CANCELED) ONCE PRN, Starting on 08/08/20 at 1357, Until 08/08/20 at 1737, Intra-Operative (Intra-Procedure), Routine 1357 (Given - Provid er: Randolph Rayo RN)1359 (Given - Provider: Randolph Rayo RN)1401 (Given - Provider: Randolph Rayo RN)1404 (Given - Provider: Randolph Rayo RN)1407 (Given - Provider: Randolph Rayo RN) documented in this encounter Care Teams Flag Car Driver Relationship Specialty Start Date End Date Edgar Marie MD PCP - General Family Medicine 08/30/16 documented as of this encounter
[2024-09-03 18:20] LABS: Abs Immature Grans 0.03 10^3/uL (0.0-0.06); Absolute Basophil Count 0.03 10^3/uL (0.0-0.2); Absolute Eosinophil Count 0.01 10^3/uL (0.0-0.7); Absolute Lymphocyte Count 0.35 10^3/uL (1.2-3.4); Absolute Monocyte Count 0.52 10^3/uL (0.1-0.8); Absolute Neutrophil Count 4.62 10^3/uL (1.2-6.7); Basophils % 0.5 %; Eosinophils % 0.2 %; HCT 30.8 % (40.0-50.0); HGB 10.3 g/dL (13.5-17.5); Immature Grans % 0.5 %; Lymphocytes % 6.3 %; MCH 31.8 pg (27.0-33.0); MCHC 33.4 % (32.0-36.0); MCV 95 fL (80-95); Monocytes % 9.4 %; Neutrophils % 83.1 %; RBC 3.24 10^6/uL (4.36-5.78); RDW 13.2 % (11.8-14.1); RDW-SD 45.8 fL; WBC 5.56 10^3/uL (4.4-10.8)
--- NOTE | 2024-09-03 18:30 | DI.CT_ITS ---
Exam(s) CT LUMBAR SPINE WO EXAM: CT LUMBAR SPINE WO CLINICAL HISTORY: unsteady gait, incontinence. TECHNIQUE: Imaging Protocol: Axial computed tomography images with coronal and sagittal reformatted images were created and reviewed COMPARISON: No exams were available for comparison FINDINGS: Bones: There are no acute fractures, listhesis, nor pars defects. There are no lytic nor blastic oss eous lesions evident. There is moderate-advanced disc space narrowing at L4-5 and L5-S1 levels as well as vacuum phenomenon seen within these 2 diminished disc spaces. There is multilevel anterior osseous lipping at all lev els above this but preserved disc space evident at L3-4 and above levels in the lumbar spine. INDIVIDUAL LEVELS: T12-L1:Lateral right-sided bridging osteophytes. Relatively preserved disc height. No disc herniati on nor central canal stenosis. Mild degenerative changes in the facet joints. No obvious foraminal stenosis. L1-2: This level exhibits uniform mildly decreased disc height. No disc herniation or central canal stenosis evident. No prominent foraminal stenosis. Mild facet joint degenerative changes. L2-3: This level exhibits relatively preserved disc height. There is broad symmetrical annular bulg ing without a focal disc herniation. There is mild central canal stenosis related to the broad annul ar bulging, short AP dimensions of the pedicles, and mild degenerative changes in the facet joints bi laterally. There is no significant foraminal stenosis. L3-4: This level exhibits relatively preserved disc height. There is broad relatively symmetrical a nnular bulging. There is severe central canal stenosis at this level due to the annular bulging, cortney rt AP dimensions of the pedicles and moderate degenerative changes in the facet joints. There is mil d-moderate bilateral foraminal stenosis L4-5: This level exhibits advanced disc space narrowing and vacuum phenomena M. also some posterior osteophytic ridging. Mild annular bulging. There is severe spinal canal stenosis also at this level due to the findings described above as well as short AP dimensions of the pedicles and advanced dege nerative changes in both facet joints. L5-S1: This level exhibits advanced disc space narrowing and vacuum phenomenon throughout the disc s pace. Lateral right-sided bridging osteophytes noted between L5 and S1. There is mild central canal stenosis at this level. There is severe foraminal stenosis on the right side at this level with onl y minimal foraminal stenosis on the left side. The visualized sacroiliac joints and sacrum appear unremarkable. 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 IMPRESSION: 1. No fractures nor listhesis but there is multilevel chronic degenerative disc disease, as described individually above. 2. The most significant findings are severe central spinal canal stenosis at L3-4 and L4-5 levels rel ated to broad annular bulging, short AP dimensions of the pedicles, and facet arthropathy at these le vels. 3. There is asymmetric severe foraminal stenosis on the right side at L5-S1 level. There is mild yony tral canal stenosis at this level and only mild left-sided foraminal stenosis. Atherosclerotic aorta with aneurysmal dilatation to 3.1 cm incidentally noted. This is documented on recent CT scan of the abdomen. Report called by myself to ER 09/03/2024 at 7:20 p.m. RADIATION DOSE DELIVERED: 574.26mGy.cm Total DLP DATA REPOSITORY: All CT scans at this facility are submitted to the National Radiology Data Registry (NRDR) Dose Index Registry (DIR) with the [employer] (ACR). RADIATION OPTIMIZATION: All CT scans at this facility use at least one of these dose optimization te chniques: automated exposure control; mA and/or kV adjustment per patient size (includes targeted exa ms where dose is matched to clinical indication); or iterative reconstruction.
[2024-09-03 18:33] LABS: ALT 23 U/L (16-63); AST 41 U/L (15-37); Albumin 2.5 g/dL (3.4-5.0); Alkaline Phosphatase 139 U/L (46-116); Anion Gap 15.6 mmol/L (3-11); BUN 26 mg/dL (7-18); Bilirubin, Total 2.06 mg/dL (0.2-1.0); CO2 18.4 mmol/L (21.0-32.0); CREATININE 1.8 mg/dL (0.70-1.30); Calcium 8.5 mg/dL (8.5-10.1); Chloride 106 mmol/L (98-107); Estimated GFR 37.12 (mL/min/1.73m2); Glucose 116 mg/dL (74-106); Sodium 140 mmol/L (136-145); Total Protein 7.9 g/dL (6.4-8.2)
[2024-09-03 18:38] LABS: Platelet Count 44 10^3/uL (130-400)
--- NOTE | 2024-09-03 19:00 | DI.CT_ITS ---
Exam(s) CT ABDOMEN PELVIS W EXAM: CT ABDOMEN PELVIS W CLINICAL HISTORY: urinary and stool incont, elevated bili and alk ph TECHNIQUE: Imaging Protocol: Axial computed tomography images with coronal and sagittal reformatted images were created and reviewed. CONTRAST MATERIAL: Intravenous: Omnipaque 350 Contrast volume:85 mL Oral: No COMPARISON: CT RENAL COLIC WO CONTRAST from 02/13/[address] CHEST PE CTA from 12/03/[address] CHEST PE CTA from 09/28/2023 FINDINGS: ABDOMEN: Lung Bases: Chronic interstitial changes are seen in the lung bases. No focal consolidating infiltra meri are seen. Liver: Normal density. No measurable mass. Portal, Superior Mesenteric, and Splenic Veins: Unremarkable. Gallbladder and Biliary Tract: Gallstones are present. There is no biliary ductal dilatation. Pancreas: There is fatty infiltration of the pancreas. No pancreatic mass or peripancreatic inflamma tion is seen. Spleen: The spleen is enlarged. Adrenals: Stable thickening of the adrenal glands. No adrenal mass is seen. Kidneys: Within normal limits in size. No radiodense stones or obstructive uropathy. No masses seen. Abdominal Aorta: Abdominal portion non-dilated. Atherosclerotic calcification is present. Bowel: No obstruction or bowel wall thickening. There is a moderate amount of stool in the colon. Th ere is no evidence of appendicitis. Peritoneal Cavity: No ascites, collection or mesenteric inflammatory response. No free air. Lymph Nodes: Within normal limits. Bones: Within normal limits for the patient's age. Soft Tissues: Unremarkable. PELVIS: Bladder: Symmetric distention, no gross wall thickening. Reproductive Organs: The prostate is normal in size. Lymph Nodes: Within normal limits. Bones: Within normal limits for the patient's age. IMPRESSION: No acute abdominal or pelvic process. RADIATION DOSE DELIVERED: 497.78mGy.cm Total DLP DATA REPOSITORY: All CT scans at this facility are submitted to the National Radiology Data Registry (NRDR) Dose Index Registry (DIR) with the [employer] (ACR). RADIATION OPTIMIZATION: All CT scans at this facility use at least one of these dose optimization te chniques: automated exposure control; mA and/or kV adjustment per patient size (includes targeted exa ms where dose is matched to clinical indication); or iterative reconstruction.
[2024-09-03] MEDS: Normal Saline - Diluent 50 ML VIAL IJ (19:35)
[2024-09-03] MEDS: Omnipaque 350 MG/ML 100 ML BTL IJ (19:36)
--- NOTE | 2024-09-03 20:20 | DI.VRAD_ITS ---
PROCEDURE INFORMATION: Exam: CT Abdomen And Pelvis With Contrast Exam date and time: 09/03/2024 19:29 Age: 84 years old Clinical indication: Other: Urinary and stool incont, elevated bili and alk ph TECHNIQUE: Imaging protocol: Computed tomography of the abdomen and pelvis with contrast. Contrast material: OMNI 350; Contrast volume: 85 ml; Contrast route: INTRAVENOUS (IV); COMPARISON: CR XR PELVIS AP 09/03/2024 17:47 FINDINGS: Lungs: Chronic appearing moderate pulmonary fibrosis. Heart: Cardiomegaly is partially seen. Liver: Nodular liver. Fatty liver. Cirrhosis. No hepatic masses. Gallbladder and biliary ducts: Cholelithiasis. Pancreas: No ductal dilation. No mass . Spleen: Enlarged spleen consistent with portal hypertension. No focal lesions. Adrenal glands: No suspicious mass. Kidneys and ureters: Congenital malrotation of the left kidney. No renal masses or hydronephrosis bilaterally. Stomach and bowel: The rectum is decompressed. No definite wall thickening. No significant enteritis or colitis. No obstruction. Appendix: No evidence of appendicitis. Intraperitoneal space: No free air. No significant fluid collection. Vasculature: Dilated portal and splenic veins. Chronic appearing mild infrarenal aortic dilation without rupture. Atherosclerosis. 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 Lymph nodes: No significantly enlarged lymph nodes. Urinary bladder: Mild probable chronic outlet obstructive changes of the urinary bladder. Reproductive: Posterior in changes in the prostate gland. Bones/joints: Chronic bony changes with no acute fracture. Soft tissues: No suspicious lesions. IMPRESSION: 1. No acute findings. 2. Chronic findings including cirrhosis and portal hypertension. Dictated and Authenticated by: Reena Soliz MD. Ordering:FLORENTINO Bautista MD
[2024-09-03 20:54] LABS: Ammonia 16 umol/L (11-32)
[2024-09-03 21:47] LABS: Bilirubin Negative (Negative); Blood Moderate (Negative); Clarity Clear (Clear); Glucose Negative (Negative); Ketones Negative (Negative); Leukocyte Esterase Negative (Negative); Nitrite Negative (Negative); Specific Gravity 1.015 (1.005-1.025); Urobilinogen 0.2 mg/dL (Up to 0.2)
[2024-09-03 21:50] LABS: Bacteria Rare HPF (Negative); C & S Indicated? No; Casts Negative LPF (Negative); Crystals Negative HPF (Negative); Epithelial Cells Rare HPF (Negative); Mucus Negative (Negative); WBC Negative HPF (0-5)
--- NOTE | 2024-09-03 23:06 | W.PM.HP.N ---
Date of service: 09/03/24 Time of Service: 23:06 Assessment and Plan Assessment and plan (1) Unsteady gait: Start date: 09/03/24 Status: Acute Assessment and plan: This is an 84-year-old gentleman with sudden onset of neurological symptoms now manifesting fever with possible source of the urine with a history of prostate cancer and radiation therapy. Is not having urinary symptoms and had no fever or chills reported at home. His imaging did suggest enlargement of the ventricles the patient does not have a history of dementia though he is having a acute onset of unsteady gait. Normal pressure hydrocephalus is being entertained but this can be further evaluated as an outpatient. Patient will be admitted with PT evaluation and close monitoring while treating his acute febrile state as possible UTI but lumbar puncture should be considered even after the initial treatment with IV Rocephin 2 g. [place] [facility] [place] follow[place]up MRI which was ordered for first available time. Also high-volume LP could be done to rule out normal pressure hydrocephalus. He is a full code. (2) Abnormal head CT: Start date: 09/03/24 Status: Acute Assessment and plan: Enlarged ventricles with consideration of normal pressure hydrocephalus but no evidence of acute changes after his fall or metastatic disease with history of bladder cancer. MRI of the brain is scheduled. (3) Fever: Start date: 09/04/24 Assessment and plan: Blood cultures x 2 and urine culture were obtained. Patient was initiated on Rocephin. Consider LP. Follow-up on cultures and adjust therapy accordingly. Qualifiers: Fever type: due to other condition Qualified Code(s): R50.81 - Fever presenting with conditions classified elsewhere (4) Fall: Start date: 09/03/24 Status: Acute Assessment and plan: No evidence of acute injury. PT evaluation with his unsteady gait. Qualifiers: Encounter type: initial encounter Qualified Code(s): W19.XXXA - Unspecified fall, initial encounter (5) SPENCER (nonalcoholic steatohepatitis): Status: Chronic Assessment and plan: Trend labs while hospitalized. (6) CKD (chronic kidney disease), stage III: Status: Chronic Assessment and plan: This appears stable with trending while hospitalized. Qualifiers: Chronic kidney disease stage 3 subtype: stage 3b (GFR 30-44) Qualified Code(s): N18.32 - Chronic kidney disease, stage 3b (7) Restrictive lung disease: Status: Chronic Assessment and plan: Continue outpatient medical therapy. Patient does have chronic lung findings. No evidence of acute process by imaging but there is an abnormal right upper lung opacity which will be followed up with CT of the chest. With patient initiation of Rocephin, this should cover possible pneumonia. There was initial concern for possible mass. (8) Thrombocytopenia: Status: Chronic Assessment and plan: Associated with SPENCER. DVT prophylaxis is contraindicated with low platelet count and patient will have compression stockings. (9) Hypertension: Status: Chronic Assessment and plan: Continue outpatient medical therapy monitoring with adjustment as needed. Qualifiers: Hypertension type: primary hypertension Qualified Code(s): I10 - Essential (primary) hypertension (10) History of prostate cancer: Status: Chronic Assessment and plan: Patient has had no evidence of recurrence treated with radiation therapy initially. There is some concern for metastases with new symptoms and imaging should help. PSA will be checked. History of Present Illness History of Present Illness Chief Complaint: Unsteadiness with falls. Narrative: This is an 84-year-old male patient who lives alone being 20 years ago having had his last drink more than 20 years ago quit in 1998 with a history of Spencer and cirrhosis with thrombocytopenia and elevated liver function test presenting with acute onset of feeling weak and unable to stand easily the morning of presentation but did eventually get up and attempt to drive to work to obtain his check. 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 He did have a fall while attempting to get into his car and called for an ambulance. He did not have any head or neck injury and had no prodromal symptoms such as fever, chills without new abdominal or urinary symptoms. He does have a history of prostate cancer status post radiation therapy with no recent recurrence. In the ED his evaluation was negative for acute fractures or injury but was positive for enlarged ventricles by CT scan of his head. The patient denies any incontinence of urine or stool during his episode and had no loss of consciousness. He does have tremor when attempting to move from the ER gurney to his hospital bed. He is very unsteady. He did not have any neck stiffness, nausea or headache. He was admitted for observation with his fall and acute change in coordination. Shortly after his admission the patient did have a fever over 39 ?C and had blood cultures and urine culture performed with initiation of Rocephin. He did not have a lumbar puncture though this was offered in the ED. This should be reconsidered with follow-up fluid evaluation for infection if he has advancing neurological symptoms. He would require a high-volume lumbar puncture for evaluation of normal pressure hydrocephalus which was entertained in the differential diagnosis in the ED. The ED physician did consult with neurology and neurosurgery who did not recommend immediate evaluation for this problem this is would be a long-term issue. He did not have fever in the ED. He did have slight metabolic acidosis with a decreased T CO2 but a normal WBC. He is a full code. Review of Systems Narrative: 13 point review of systems otherwise unrevealing or stable. The patient has been very active driving locally and living independently up to his admission. [facility] All Active Problems (Updated 09/04/24 @ 06:27 by Kings Segundo) Unsteady gait (Acute) Abnormal head CT (Acute) Fall (Acute) Urinary incontinence (Acute) Abnormal gait (Acute) SPENCER (nonalcoholic steatohepatitis) (Chronic) Radiation proctitis (Chronic) Coagulopathy (Chronic) Elevated INR (Acute) Chronic blood loss anemia (Chronic) Chronic radiation proctitis (Chronic) Anal stricture (Acute) Hematochezia (Acute) Cough (Acute) Urgency incontinence (Acute) Bladder cancer (Acute) Mixed hearing loss, bilateral (Acute) History of prostate cancer (Chronic) CKD (chronic kidney disease), stage III (Chronic) Thrombocytopenia (Chronic) Restrictive lung disease (Chronic) 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) PFT impression from August 24, 2018 showed mild restrictive lung disease Hypertension (Chronic) Medical History COPD (chronic obstructive pulmonary disease) GERD (gastroesophageal reflux disease) Otosclerosis of both ears Bronchospasm Community acquired pneumonia of both lungs Rales Listed as basilar rales in PCP chart Fever Acute blood loss anemia Acute urinary retention Hematuria Esophageal varices Carpal tunnel syndrome Cirrhosis of liver Other otosclerosis, bilateral Internal hemorrhoid Gross hematuria Prostate cancer Right carpal tunnel syndrome Surgical History History of ear surgery S/P endoscopic carpal tunnel release (09/09/18) Family History Mother No problems noted. Father Cardiovascular disease Brother No problems noted. 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 Do you feel safe at home: Yes Additional Social history: Live alone Meds Allergies and Home Medications Allergies Allergy/AdvReac Type Severity Reaction Status Date / Time ATUL Inhibitors AdvReac cough Verified 09/03/24 19:58 Home Medications ?Medication ?Instructions ?Recorded ?Confirmed ?Type magnesium oxide 250 mg PO DAILY AM 02/25/17 09/03/24 History calcium 600 mg (as 1 cap PO DAILY 09/03/18 09/03/24 History carbonate)-vitamin D3 5 mcg (200 unit) capsule (Calcium 600 + D(3)) albuterol sulfate 90 mcg/actuation 2 puff inhalation Q4H ##0 02/13/19 09/03/24 Rx aerosol inhaler (ProAir HFA) tiotropium bromide 2.5 2 puff inhalation DAILY 05/31/21 09/03/24 History mcg/actuation mist for inhalation (Spiriva Respimat) losartan 100 mg tablet 100 mg PO DAILY 10/08/23 09/03/24 History mirabegron 25 mg tablet,extended 25 mg PO DAILY 10/08/23 09/03/24 History release 24 hr (Myrbetriq) propranolol 80 mg capsule,24 80 mg PO DAILY 10/08/23 09/03/24 History hr,extended release omeprazole 20 mg capsule,delayed 40 mg (2 x 20 mg) PO DAILY #0 caps 10/10/23 09/03/24 Rx release acetaminophen 500 mg tablet 500 mg PO Q6H PRN 02/19/24 09/03/24 History (Tylenol Extra Strength) chlorthalidone 25 mg tablet 12.5 mg PO Q OTHER DAY 03/11/24 09/03/24 History Exam Narrative Exam Narrative: General: Patient appears appropriate for age, alert and oriented x 3 and in no acute distress. HEENT: Normocephalic, eyes with pupils equal and react to light symmetrically, extraocular movement intact and sclera anicteric. Oropharynx with moist mucosa. Neck: Supple without JVD. No meningismus. Back: Normal posture, without CVA tenderness. Lungs: Fair aeration clear to auscultation percussion. Diffuse coarse crackles in all lung viera with no focalizing rales or rhonchi. No increased expiratory phase or expiratory wheeze. Heart: Regular rate and rhythm with no murmurs gallops appreciated. Abdomen: Normal contour, soft and nontender to palpation no palpable hepatosplenomegaly. Bowel sounds positive all quadrants. Genitalia/rectal: Exam deferred. Extremities: No clubbing, cyanosis or pitting edema. Peripheral pulses intact. Skin: Normal color, warm and dry. Rough texture. Actinic changes over sun exposed areas. Neuro: Cranial nerves II through XII grossly intact. Markedly positive Romberg. No Babinski's. DTRs slightly hyperactive with tone normal. No focalized motor deficits. No tremor at rest. Patient has coarse tremor with intention. Psych: Normal affect and mood. No abnormal thought processes. Remote and recent memory grossly intact. Results Imaging Imaging Studies: EXAM: CT HEAD WO CLINICAL HISTORY: fatigue. fall. TECHNIQUE: Imaging Protocol: Axial computed tomography images with coronal and sagittal reformatted images were created and reviewed COMPARISON: No exams were available for comparison FINDINGS: There are no skull fractures. There is no fluid in the visualized paranasal sinuses. There is no evidence of intracranial hemorrhage, mass effect, or shift of midline structures. There are no extra-axial fluid collections. The ventricles are not enlarged or shifted and there is no blood within the ventricular system nor within the basal cisterns. Symmetrical involutional change consistent with the patient's advanced age. The size of the lateral ventricles may be slightly out of proportion compared to the overlying cortical sulci. IMPRESSION: No obvious acute intracranial findings on this noninfused CT scan of the brain. There is met involutional change. Lateral ventricles are somewhat enlarged including temporal horns has is the 3rd ventricle. Perhaps slightly out of proportion when compared to the overlying cortical sulci. Therefore if there is a clinical triad of dementia, incontinence, gait disturbance than the possibility of normal pressure hydrocephalus should be considered. Exam: CT Abdomen And Pelvis With Contrast Exam date and time: 09/03/2024 19:29 Age: 84 years old Clinical indication: Other: Urinary and stool incont, elevated bili and alk ph TECHNIQUE: Imaging protocol: Computed tomography of the abdomen and pelvis with contrast. Contrast material: OMNI 350; Contrast volume: 85 ml; Contrast route: INTRAVENOUS (IV); COMPARISON: CR XR PELVIS AP 09/03/2024 17:47 FINDINGS: Lungs: Chronic appearing moderate pulmonary fibrosis. Heart: Cardiomegaly is partially seen. Liver: Nodular liver. Fatty liver. Cirrhosis. No hepatic masses. Gallbladder and biliary ducts: Cholelithiasis. Pancreas: No ductal dilation. No mass . Spleen: Enlarged spleen consistent with portal hypertension. No focal lesions. Adrenal glands: No suspicious mass. Kidneys and ureters: Congenital malrotation of the left kidney. No renal masses or hydronephrosis bilaterally. Stomach and bowel: The rectum is decompressed. No definite wall thickening. No significant enteritis or colitis. No obstruction. Appendix: No evidence of appendicitis. Intraperitoneal space: No free air. No significant fluid collection. Vasculature: Dilated portal and splenic veins. Chronic appearing mild infrarenal aortic dilation without rupture. Atherosclerosis. 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 Lymph nodes: No significantly enlarged lymph nodes. Urinary bladder: Mild probable chronic outlet obstructive changes of the urinary bladder. Reproductive: Posterior in changes in the prostate gland. Bones/joints: Chronic bony changes with no acute fracture. Soft tissues: No suspicious lesions. IMPRESSION: 1. No acute findings. 2. Chronic findings including cirrhosis and portal hypertension. EXAM: CT LUMBAR SPINE WO CLINICAL HISTORY: unsteady gait, incontinence. TECHNIQUE: Imaging Protocol: Axial computed tomography images with coronal and sagittal reformatted images were created and reviewed COMPARISON: No exams were available for comparison FINDINGS: Bones: There are no acute fractures, listhesis, nor pars defects. There are no lytic nor blastic osseous lesions evident. There is moderate-advanced disc space narrowing at L4-5 and L5-S1 levels as well as vacuum phenomenon seen within these 2 diminished disc spaces. There is multilevel anterior osseous lipping at all levels above this but preserved disc space evident at L3-4 and above levels in the lumbar spine. INDIVIDUAL LEVELS: T12-L1:Lateral right-sided bridging osteophytes. Relatively preserved disc height. No disc herniation nor central canal stenosis. Mild degenerative changes in the facet joints. No obvious foraminal stenosis. L1-2: This level exhibits uniform mildly decreased disc height. No disc herniation or central canal stenosis evident. No prominent foraminal stenosis. Mild facet joint degenerative changes. L2-3: This level exhibits relatively preserved disc height. There is broad symmetrical annular bulging without a focal disc herniation. There is mild central canal stenosis related to the broad annular bulging, short AP dimensions of the pedicles, and mild degenerative changes in the facet joints bilaterally. There is no significant foraminal stenosis. L3-4: This level exhibits relatively preserved disc height. There is broad relatively symmetrical annular bulging. There is severe central canal stenosis at this level due to the annular bulging, short AP dimensions of the pedicles and moderate degenerative changes in the facet joints. There is mild-moderate bilateral foraminal stenosis L4-5: This level exhibits advanced disc space narrowing and vacuum phenomena M. also some posterior osteophytic ridging. Mild annular bulging. There is severe spinal canal stenosis also at this level due to the findings described above as well as short AP dimensions of the pedicles and advanced degenerative changes in both facet joints. L5-S1: This level exhibits advanced disc space narrowing and vacuum phenomenon throughout the disc space. Lateral right-sided bridging osteophytes noted between L5 and S1. There is mild central canal stenosis at this level. There is severe foraminal stenosis on the right side at this level with only minimal foraminal stenosis on the left side. The visualized sacroiliac joints and sacrum appear unremarkable. 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 IMPRESSION: 1. No fractures nor listhesis but there is multilevel chronic degenerative disc disease, as described individually above. 2. The most significant findings are severe central spinal canal stenosis at L3-4 and L4-5 levels related to broad annular bulging, short AP dimensions of the pedicles, and facet arthropathy at these levels. 3. There is asymmetric severe foraminal stenosis on the right side at L5-S1 level. There is mild central canal stenosis at this level and only mild left-sided foraminal stenosis. Atherosclerotic aorta with aneurysmal dilatation to 3.1 cm incidentally noted. This is documented on recent CT scan of the abdomen. EXAM: XR CHEST 2V PA LATERAL CLINICAL HISTORY: fatigue, fall. TECHNIQUE: 2D digital imaging was performed. COMPARISON: CT CT CHEST PE CTA from 09/28/2023 CR XR CHEST 2V PA LATERAL from 01/08/2024 FINDINGS: 2 views: Heart size is upper normal. The mediastinum is not widened. There are stable appearing increased interstitial markings throughout both lung viera, not associated with pleural effusions. There are healed bilateral rib fractures. Increased density noted in the lateral right lung which may just be related to overlapping bones with callus from healed right 5th rib fracture and anterolateral aspect of the right 4th rib. Other possibly is at there is a pleural based infiltrate or lesion at this level in the right upper lobe. IMPRESSION: As above. If clinically indicated lateral right lung findings can be further study with CT scan. EXAM: XR PELVIS AP CLINICAL HISTORY: fatigue fall. TECHNIQUE: 2D digital imaging was performed. COMPARISON: CT RENAL COLIC WO CONTRAST from 02/13/[address] CHEST PE CTA from 12/03/2021 FINDINGS: Single AP view of the pelvis There is no evidence of pelvic nor hip fracture. No lytic nor blastic osseous lesions identified. There are 2 parallel radiation pins in the prostate gland, as seen on CT scan of January 2017. IMPRESSION: No acute osseous findings in the pelvis-hips. Labs 09/03/24 18:08 09/03/24 18:08 Labs: Laboratory Results - last 24 hr 09/03/24 09/03/24 09/03/24 18:08 20:35 21:35 WBC 5.56 RBC 3.24 L Hgb 10.3 L Hct 30.8 L MCV 95 MCH 31.8 MCHC 33.4 RDW 13.2 Plt Count 44 L MPV 13.0 H Immature Gran % 0.5 Neutrophils % 83.1 Lymphocytes % 6.3 Monocytes % 9.4 Eosinophils % 0.2 Basophils % 0.5 Nucleated RBC % 0.0 Absolute Neutrophils 4.62 Absolute Lymphocytes 0.35 L Absolute Monocytes 0.52 Absolute Eosinophils 0.01 Absolute Basophils 0.03 Sodium 140 Potassium 4.0 Chloride 106 Carbon Dioxide 18.4 L Anion Gap 15.6 H BUN 26 H Creatinine 1.8 H Est GFR (CKD-EPI 2020) 37.12 Glucose 116 H Calcium 8.5 Total Bilirubin 2.06 H AST 41 H ALT 23 Alkaline Phosphatase 139 H Ammonia 16 Total Protein 7.9 Albumin 2.5 L Urine Color Yellow Urine Clarity Clear Urine pH 6.0 Ur Specific [place] 1.015 Urine Protein Negative Urine Ketones Negative Urine Blood Moderate H Urine Nitrite Negative Urine Bilirubin Negative Urine Urobilinogen 0.2 Ur Leukocyte Esterase Negative Urine RBC 10-20 H Urine WBC Negative Ur Epithelial Cells Rare Urine Crystals Negative Urine Bacteria Rare Urine Casts Negative Urine Mucus Negative Ur Culture Indicated? No Urine Glucose Negative Last Vital Signs Temp 36.8 C 09/03/24 16:45 Pulse 79 09/03/24 22:15 Resp 18 09/03/24 21:36 BP 139/47 L 09/03/24 22:15 Pulse Ox 98 09/03/24 22:20 Time Spent Time spent with Patient: >75 minutes Time was spent: preparing to see the patient(eg.review tests), obtaining and/or reviewing separately otained hiistory, ordering medications,tests, procedures, referring, communicating with other health care nurse rn, indepentently interpreting results, counseling the patient and care coordination
[2024-09-03 23:39] LABS: Source Nasal/Nares
[2024-09-04] VITALS (7 sets, daily range): BP systolic 116–148; BP diastolic 41–59; PULSE 77–95; RESP 16–22; TEMP 36.5–39.1; O2SAT 96–99
[2024-09-04 00:09] LABS: COVID-19 PCR Negative (Negative)
--- NOTE | 2024-09-04 00:57 | W.PC.ACHO ---
Registration Status: Primary Language: Preferred Language: ED Information & Data Chief Complaint Fall/Non TraumaCriteria 09/03/24 17:59 Chief Complaint Fall/Non TraumaCriteria 09/03/24 17:04 Triage Note Patient was brought to the 09/03/24 16:45 ER via EMS reported that he was trying to get into his car and slip out of the car onto the ground but he did not hurt anywhere. State this morning he was having some difficulty to get up out of his chair at home, and that's the first time that has ever happened. State he wants to be checked out to ensure that everything is okay Medical / Surgical History (Last Reviewed 09/03/24 @ 23:07 by Kings Segundo) COPD (chronic obstructive pulmonary disease) GERD (gastroesophageal reflux disease) Otosclerosis of both ears Bronchospasm Community acquired pneumonia of both lungs Rales Fever Acute blood loss anemia Acute urinary retention Hematuria Esophageal varices Carpal tunnel syndrome Cirrhosis of liver Other otosclerosis, bilateral Internal hemorrhoid Gross hematuria Prostate cancer Right carpal tunnel syndrome (Last Reviewed 09/03/24 @ 23:07 by Kings Segundo) History of ear surgery S/P endoscopic carpal tunnel release (09/09/18) Most Recent Vital Signs Temperature 36.8 C 09/03/24 16:45 Temperature Source Temporal Artery Scan 09/03/24 16:45 Pulse 79 09/03/24 22:15 Respiratory Rate 18 09/03/24 21:36 Respiratory Effort Normal, Non-Labored 09/03/24 21:36 Respiratory Depth Normal 09/03/24 21:36 Respiratory Pattern Normal 09/03/24 21:36 Blood Pressure 139/47 L 09/03/24 22:15 Blood Pressure Mean 77 09/03/24 22:15 Pulse Oximetry 98 09/03/24 22:20 Oxygen Delivery Method Room Air 09/03/24 21:36 Oxygen Flow Rate 0 09/03/24 21:36 Pain Level 0 09/03/24 16:45 Allergies ATUL Inhibitors Adverse Reaction (Verified 09/03/24 19:58) cough Precautions Isolation Standard precaution 09/03/24 17:59 Diet Orders Category Date Time Status Heart Healthy Eating [DIET] Nutrition 09/04/24 Breakfast Active Diagnostics 09/04/24 09/04/24 09/03/24 Range/Units 05:35 00:46 23:38 WBC Pending (4.4-10.8) 10^3/uL RBC Pending (4.36-5.78) 10^6/uL Hgb Pending (13.5-17.5) g/dL Hct Pending (40.0-50.0) % MCV Pending (80-95) fL MCH Pending (27.0-33.0) pg MCHC Pending (32.0-36.0) % RDW Pending (11.8-14.1) % Plt Count Pending (130-400) 10^3/uL MPV Pending (8.0-11.0) fL Immature Gran % % Neutrophils % % Lymphocytes % % Monocytes % % Eosinophils % % Basophils % % Nucleated RBC % (0.0-0.3) % Absolute Neutrophils (1.2-6.7) 10^3/uL Absolute Lymphocytes (1.2-3.4) 10^3/uL Absolute Monocytes (0.1-0.8) 10^3/uL Absolute Eosinophils (0.0-0.7) 10^3/uL Absolute Basophils (0.0-0.2) 10^3/uL PT Pending INR Pending Sodium Pending (136-145) mmol/L Potassium Pending (3.5-5.1) mmol/L Chloride Pending (98-107) mmol/L Carbon Dioxide Pending (21.0-32.0) mmol/L Anion Gap Pending (3-11) mmol/L BUN Pending (7-18) mg/dL Creatinine Pending (0.70-1.30) mg/dL Est GFR (CKD-EPI 2020) Pending (mL/min/1.73m2) Glucose Pending (74-106) mg/dL Calcium Pending (8.5-10.1) mg/dL Magnesium Pending Pending Total Bilirubin Pending (0.2-1.0) mg/dL AST Pending (15-37) U/L ALT Pending (16-63) U/L Alkaline Phosphatase Pending (46-116) U/L Ammonia (11-32) umol/L Total Protein Pending (6.4-8.2) g/dL Albumin Pending (3.4-5.0) g/dL Prostate Specific Ag Pending TSH Pending Urine Color (Yellow) Urine Clarity (Clear) Urine pH (5-8) Ur Specific [place] (1.005-1.025) Urine Protein (Neg-Trace) mg/dL Urine Ketones (Negative) mg/dL Urine Blood (Negative) Urine Nitrite (Negative) Urine Bilirubin (Negative) Urine Urobilinogen (Up to 0.2) mg/dL Ur Leukocyte Esterase (Negative) Urine RBC (0-2) HPF Urine WBC (0-5) HPF Ur Epithelial Cells (Negative) HPF Urine Crystals (Negative) HPF Urine Bacteria (Negative) HPF Urine Casts (Negative) LPF Urine Mucus (Negative) Ur Culture Indicated? Urine Glucose (Negative) mg/dL COVID-19 Source Nasal/Nares SARS-CoV-2 (PCR) Negative (Negative) 09/03/24 09/03/24 09/03/24 Range/Units 21:35 20:35 18:08 WBC 5.56 (4.4-10.8) 10^3/uL RBC 3.24 L (4.36-5.78) 10^6/uL Hgb 10.3 L (13.5-17.5) g/dL Hct 30.8 L (40.0-50.0) % MCV 95 (80-95) fL MCH 31.8 (27.0-33.0) pg MCHC 33.4 (32.0-36.0) % RDW 13.2 (11.8-14.1) % Plt Count 44 L (130-400) 10^3/uL MPV 13.0 H (8.0-11.0) fL Immature Gran % 0.5 % Neutrophils % 83.1 % Lymphocytes % 6.3 % Monocytes % 9.4 % Eosinophils % 0.2 % Basophils % 0.5 % Nucleated RBC % 0.0 (0.0-0.3) % Absolute Neutrophils 4.62 (1.2-6.7) 10^3/uL Absolute Lymphocytes 0.35 L (1.2-3.4) 10^3/uL Absolute Monocytes 0.52 (0.1-0.8) 10^3/uL Absolute Eosinophils 0.01 (0.0-0.7) 10^3/uL Absolute Basophils 0.03 (0.0-0.2) 10^3/uL PT INR Sodium 140 (136-145) mmol/L Potassium 4.0 (3.5-5.1) mmol/L Chloride 106 (98-107) mmol/L Carbon Dioxide 18.4 L (21.0-32.0) mmol/L Anion Gap 15.6 H (3-11) mmol/L BUN 26 H (7-18) mg/dL Creatinine 1.8 H (0.70-1.30) mg/dL Est GFR (CKD-EPI 2020) 37.12 (mL/min/1.73m2) Glucose 116 H (74-106) mg/dL Calcium 8.5 (8.5-10.1) mg/dL Magnesium Total Bilirubin 2.06 H (0.2-1.0) mg/dL AST 41 H (15-37) U/L ALT 23 (16-63) U/L Alkaline Phosphatase 139 H (46-116) U/L Ammonia 16 (11-32) umol/L Total Protein 7.9 (6.4-8.2) g/dL Albumin 2.5 L (3.4-5.0) g/dL Prostate Specific Ag TSH Urine Color Yellow (Yellow) Urine Clarity Clear (Clear) Urine pH 6.0 (5-8) Ur Specific [place] 1.015 (1.005-1.025) Urine Protein Negative (Neg-Trace) mg/dL Urine Ketones Negative (Negative) mg/dL Urine Blood Moderate H (Negative) Urine Nitrite Negative (Negative) Urine Bilirubin Negative (Negative) Urine Urobilinogen 0.2 (Up to 0.2) mg/dL Ur Leukocyte Esterase Negative (Negative) Urine RBC 10-20 H (0-2) HPF Urine WBC Negative (0-5) HPF Ur Epithelial Cells Rare (Negative) HPF Urine Crystals Negative (Negative) HPF Urine Bacteria Rare (Negative) HPF Urine Casts Negative (Negative) LPF Urine Mucus Negative (Negative) Ur Culture Indicated? No Urine Glucose Negative (Negative) mg/dL COVID-19 Source SARS-CoV-2 (PCR) (Negative) [id number] Documentation Fingerstick Glucose Start: 09/03/24 17:00 Freq: .Stat Status: Complete Protocol: Activity Type Activity Date Activity User E-sign Co-sign Detail Recorded Client Recorded Date Recorded By Document 09/03/24 17:17 MANDI NIAR(3) [id number] 09/03/24 17:18 MANDI NAIR(4) Intake and Output - 24 Hour Total 09/03/24 16:44 thru 09/03/24 16:45 Weight 81.647 kg Falls Risk Assessment History of Falls Admit Due to Fall 09/03/24 17:59 Contributing Factors No Factors 09/03/24 17:59 Ambulatory Aids Independent 09/03/24 17:59 Tubes/Lines None 09/03/24 17:59 Gait Evaluation No gait disturbance 09/03/24 17:59 Cognition No cognitive impairment 09/03/24 17:59 Fall Total Score 25 09/03/24 17:59 Level of Risk Moderate Risk 09/03/24 17:59 Problems (Last Reviewed 09/03/24 @ 23:07 by Kings Segundo) Unsteady gait (Acute) Abnormal head CT (Acute) Fall (Acute) Urinary incontinence (Acute) Abnormal gait (Acute) SPENCER (nonalcoholic steatohepatitis) (Chronic) Bladder cancer (Acute) History of prostate cancer (Chronic) CKD (chronic kidney disease), stage III (Chronic) Thrombocytopenia (Chronic) Restrictive lung disease (Chronic) Hypertension (Chronic) v v v v v v v v v Sending and/or Receiving Nurses: Please use comment section below to note any information pertinent to the patient hand-off not included above. Information / Comments: Report received from: Eileen PERKINS at 0025
[2024-09-04] MEDS: Thiamine 100 MG TAB PO ×2 (01:54→09:03)
[2024-09-04] MEDS: Cyanocobalamin 1000 MCG/ML VIAL IM/SC (01:54)
[2024-09-04] MEDS: Albuterol HFA 8 GM 60 PUFF INH IH ×2 (04:44→08:19)
[2024-09-04] MEDS: Acetaminophen 500 MG TAB PO (04:44)
[2024-09-04 05:13] LABS: Magnesium 1.8 mg/dL (1.8-2.4); TSH (W/Ref FT4) 0.88 uIU/mL (0.36-3.74)
[2024-09-04] MEDS: cefTRIAXone 2 GM/50 ML BAG IVPB (06:20)
[2024-09-04 06:53] LABS: HCT 26.2 % (40.0-50.0); HGB 9.1 g/dL (13.5-17.5); MCH 32.4 pg (27.0-33.0); MCHC 34.7 % (32.0-36.0); MCV 93 fL (80-95); MPV 12.4 fL (8.0-11.0); RBC 2.81 10^6/uL (4.36-5.78); RDW 13.2 % (11.8-14.1); RDW-SD 45.4 fL; WBC 4.25 10^3/uL (4.4-10.8)
[2024-09-04 07:07] LABS: ALT 23 U/L (16-63); AST 59 U/L (15-37); Albumin 2.2 g/dL (3.4-5.0); Alkaline Phosphatase 115 U/L (46-116); Anion Gap 10.3 mmol/L (3-11); BUN 28 mg/dL (7-18); Bilirubin, Total 2.14 mg/dL (0.2-1.0); CO2 21.7 mmol/L (21.0-32.0); CREATININE 1.8 mg/dL (0.70-1.30); Calcium 8.4 mg/dL (8.5-10.1); Chloride 107 mmol/L (98-107); Estimated GFR 37.12 (mL/min/1.73m2); Glucose 102 mg/dL (74-106); Magnesium 1.7 mg/dL (1.8-2.4); Potassium 3.8 mmol/L (3.5-5.1); Sodium 139 mmol/L (136-145); Total Protein 7.1 g/dL (6.4-8.2)
[2024-09-04 07:08] LABS: INR 1.6 (0.9-1.1); Prothrombin Time 15.5 sec (9.1-11.1)
[2024-09-04 07:44] LABS: Platelet Count 34 10^3/uL (130-400)
--- NOTE | 2024-09-04 08:00 | DI.CT_ITS ---
Exam(s) CT CHEST WO EXAM: CT CHEST WO CLINICAL HISTORY: Mass right upper lobe. TECHNIQUE: Imaging protocol: Axial computed tomography images were obtained and coronal and sagittal reformatted images were created and reviewed. COMPARISON: CT CT CHEST PE CTA from 09/28/2023 CR XR CHEST 2V PA LATERAL from 09/03/2024 FINDINGS: Tracheobronchial tree: Patent where visualized. No bronchiectasis is present. Pulmonary parenchyma: Interstitial fibrosis is seen. No focal consolidating infiltrates are present. Mediastinum and Keila: No dominant adenopathy or fluid collection. The esophagus is unremarkable. Thyroid gland: Unremarkable. Pleura: No effusion or pneumothorax. Heart: The heart is not dilated. Mild coronary artery calcification. No pericardial effusion. Aorta: Thoracic aorta non-dilated. Atherosclerotic calcification is present. Upper abdomen: Cholelithiasis. The spleen is enlarged. Lymph nodes: Within normal limits. Soft tissues: Unremarkable. Bones:Within normal limits for the patient's age. IMPRESSION: 1. No acute pulmonary process. 2. No evidence of a pulmonary mass. RADIATION DOSE DELIVERED: 151.25mGy.cm Total DLP 151.25mGy.cm Total DLP DATA REPOSITORY: All CT scans at this facility are submitted to the National Radiology Data Registry (NRDR) Dose Index Registry (DIR) with the [employer] (ACR). RADIATION OPTIMIZATION: All CT scans at this facility use at least one of these dose optimization te chniques: automated exposure control; mA and/or kV adjustment per patient size (includes targeted exa ms where dose is matched to clinical indication); or iterative reconstruction.
[2024-09-04] MEDS: Cyanocobalamin 500 MCG TAB 1000 MCG PO (09:03)
[2024-09-04] MEDS: Calcium 600mg/Vit D 200U TAB 1 TAB PO (09:03)
[2024-09-04] MEDS: Normal Saline Flush 10 ML SYR IVP ×2 (09:03→20:44)
[2024-09-04] MEDS: Chlorthalidone 25 MG TAB 12.5 MG PO (09:03)
--- NOTE | 2024-09-04 09:14 | INITIAL_ITS ---
Date of service: 09/04/24 Time of Service: 09:14 Care Management Initial Assmt Initial Assessment Reason for Hospitalization: unsteady gait Functional Status/Living Situation Patient Presentation: Marleny was lying in bed when CM met with him. He had been sleeping but woke up to the calling of his name. Marleny stated that he is very sleepy however he agreed to answer a few questions. Marleny lives alone in an apartment in [facility]. 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 He is independent at baseline and does not receive any community services. Marleny informed CM that he has 2 children but is not in contact with them and does not know where they live. He has 3 step daughters that he sees occasionally and who can be helpful when needed. 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 Medicare Replacement Care Team Visit Care Team Role Provider Type Ulices Simpson Primary Care Provider [facility] STAFF PHYSICIAN InPatient Berny Salter Other Providers OTHER Michele Lee MD Emergency Provider [facility] STAFF PHYSICIAN Kings Segundo Admit Provider NON-[facility] STAFF PHYSICIAN Attending Provider Discharge Potential Discharge Needs: PCP F/U Appt Anticipated Barriers to Discharge: Medical Status Patient/Family Education Needs: Review discharge instructions, discuss Ask Me Three Transportation: Private vehicle Plan: Anticipate Marleny will be discharged home with no new services when medically cleared. He will follow up with his community providers and plan of care and transport with family/friend. CM will continue to support discharge planning considerations. PFSH All Active Problems (Updated 09/04/24 @ 09:37 by Gina Brandon APRN) Anemia (Chronic) Unsteady gait (Acute) Abnormal head CT (Acute) Fall (Acute) Urinary incontinence (Acute) Abnormal gait (Acute) SPENCER (nonalcoholic steatohepatitis) (Chronic) Radiation proctitis (Chronic) Coagulopathy (Chronic) Elevated INR (Acute) Chronic blood loss anemia (Chronic) Chronic radiation proctitis (Chronic) Anal stricture (Acute) Hematochezia (Acute) Cough (Acute) Urgency incontinence (Acute) Bladder cancer (Acute) Mixed hearing loss, bilateral (Acute) History of prostate cancer (Chronic) CKD (chronic kidney disease), stage III (Chronic) Thrombocytopenia (Chronic) Restrictive lung disease (Chronic) 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) PFT impression from August 24, 2018 showed mild restrictive lung disease Hypertension (Chronic) Medical History COPD (chronic obstructive pulmonary disease) GERD (gastroesophageal reflux disease) Otosclerosis of both ears Bronchospasm Community acquired pneumonia of both lungs Rales Listed as basilar rales in PCP chart Fever Acute blood loss anemia Acute urinary retention Hematuria Esophageal varices Carpal tunnel syndrome Cirrhosis of liver Other otosclerosis, bilateral Internal hemorrhoid Gross hematuria Prostate cancer Right carpal tunnel syndrome Surgical History History of ear surgery S/P endoscopic carpal tunnel release (09/09/18) Family History Mother No problems noted. Father Cardiovascular disease Brother No problems noted. 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 Do you feel safe at home: Yes Additional Social history: Live alone SDOH(Care Management) Screening Will the Patient Participate in the Screening?: Yes Do you worry about having a steady place to live?: no Problems where you live: no known problems In the past 12 months, have you had to go without electric, gas, oil or water in your home?: no Have you or anyone in your house had to go without enough food to eat?: no Has lack of transportation kept you from medical appointments or from doing things needed for daily living?: no Has anyone in your support network made you feel unsafe for any reason?: no
--- NOTE | 2024-09-04 09:34 | W.PM.PROGNOT ---
Date of Service Date of service: 09/04/24 Time of Service: 09:34 Assessment and Plan Assessment and plan (1) Unsteady gait: Start date: 09/03/24 Status: Acute Assessment and plan: With presentation of sudden onset of neurological symptoms with fever with possible urinary source d/t history of prostate cancer and radiation therapy. Is not having urinary symptoms and had no fever or chills reported at home. His imaging did suggest enlargement of the ventricles the patient does not have a history of dementia though he is having a acute onset of unsteady gait. Normal pressure hydrocephalus is being entertained but this can be further evaluated as an outpatient. Patient will be admitted with PT evaluation and close monitoring while treating his acute febrile state as possible UTI but lumbar puncture should be considered even after the initial treatment with IV Rocephin 2 g. Neurosurgery and neurology at [facility] did recommend follow-up MRI which was ordered for first available time. Also high-volume LP could be done to rule out normal pressure hydrocephalus. He is a full code. MRI ordered for 09/05/2024 PT consult ongoing (2) Abnormal head CT: Start date: 09/03/24 Status: Acute Assessment and plan: Enlarged ventricles pointing to possible normal pressure hydrocephalus but no evidence of acute changes after his fall or metastatic disease with history of bladder cancer. MRI of the brain for 09/06/2024 (3) Fever: Start date: 09/04/24 Assessment and plan: Blood cultures x 2 results pending Urine culture pending , UA was negative now on Rocephin. Possible LP mentioned- risk of herniation to be considered Qualifiers: Fever type: due to other condition Qualified Code(s): R50.81 - Fever presenting with conditions classified elsewhere (4) Fall: Start date: 09/03/24 Status: Acute Assessment and plan: PT consult in progress Reporting feeling better Qualifiers: Encounter type: initial encounter Qualified Code(s): W19.XXXA - Unspecified fall, initial encounter (5) SPENCER (nonalcoholic steatohepatitis): Status: Chronic Assessment and plan: continue to monitor CMP in AM (6) CKD (chronic kidney disease), stage III: Status: Chronic Assessment and plan: GFR > 30 and Cr at 1.8 close to baseline of 1.6-1.7 Qualifiers: Chronic kidney disease stage 3 subtype: stage 3b (GFR 30-44) Qualified Code(s): N18.32 - Chronic kidney disease, stage 3b (7) Restrictive lung disease: Status: Chronic Assessment and plan: Continue home medicine regimen for chronic lung findings without evidence of acute process by imaging but there is an abnormal right upper lung opacity Continue Rocephin to cover possible pneumonia. There was initial concern for possible mass. CT results: IMPRESSION: 1. No mass identified. No mass in the right upper lobe 2. Subpleural interstitial densities consistent with chronic lung changes. Honeycomb appearance in the posterior lower lobes consistent with chronic lung changes . 3. Splenomegaly 16 cm . Differential diagnosis of splenomegaly is lymphoma/leukemia, mononucleosis, hemolytic anemia, portal hypertension. 4 gallstones in the gallbladder pending (8) Thrombocytopenia: Status: Chronic Assessment and plan: Associated with SPENCER. Platelet now 34 from 44 Will monitor for bleeding Might need transfusion at < 20 DVT prophylaxis: TEDs (9) Hypertension: Status: Chronic Assessment and plan: Continue home medicine regimen Qualifiers: Hypertension type: primary hypertension Qualified Code(s): I10 - Essential (primary) hypertension (10) History of prostate cancer: Status: Chronic Assessment and plan: Without evidence of recurrence s/p radiation therapy initially. Concern for metastases with new symptoms and imaging should help. -PSA is pending (11) Anemia: Status: Chronic Assessment and plan: Hgb at 10.3 on arrival now at 9.1 will continue to monitor Stool for occult blood Discussed with Dr. Moctezuma Subjective Subjective Patient reports: tolerating liquids well, tolerating a regular diet, voiding w/o difficulty and other (feeling tired , fatigued); denies diarrhea, nausea, vomiting, shortness of breath or fever Exam Narrative Exam Narrative: Constitutional The patient lying in bed, sleepy but arousable to verbal stimuli, delayed in answering w/o focal deficit HENMT: Head is atraumatic, normocephalic, no lymphadenopathy. Facial structures with normal appearance Eyes: Well aligned, intact ROM Neck: Normal ROM, no meningeal signs Neuro:alert and oriented X3 Resp: shallow breath sounds , speaks in shport sentences, unlabored breathing, clear lung bilaterally with decreased bases Cardio: regular rhythm, S1, S2, no murmur,bilateral radial and dorsalis pedis pulses are positive, palpable GI: Abdomen is not distended, soft and non tender, bowel sounds are present Integumentary: No skin lesions or rash on exposed skin Extremities: strength 5/5 to bilateral lower and upper extremities Psych: RASS 0, congruent mood and normal affect. Objective Last Vital Signs Temp 36.8 C 09/04/24 07:56 Pulse 77 09/04/24 07:56 Resp 18 09/04/24 07:56 BP 116/52 L 09/04/24 07:56 Pulse Ox 99 09/04/24 07:56 Laboratory Results - last 24 hr 09/03/24 09/03/24 09/03/24 18:08 20:35 21:35 WBC 5.56 RBC 3.24 L Hgb 10.3 L Hct 30.8 L MCV 95 MCH 31.8 MCHC 33.4 RDW 13.2 Plt Count 44 L MPV 13.0 H Immature Gran % 0.5 Neutrophils % 83.1 Lymphocytes % 6.3 Monocytes % 9.4 Eosinophils % 0.2 Basophils % 0.5 Nucleated RBC % 0.0 Absolute Neutrophils 4.62 Absolute Lymphocytes 0.35 L Absolute Monocytes 0.52 Absolute Eosinophils 0.01 Absolute Basophils 0.03 PT INR Sodium 140 Potassium 4.0 Chloride 106 Carbon Dioxide 18.4 L Anion Gap 15.6 H BUN 26 H Creatinine 1.8 H Est GFR (CKD-EPI 2020) 37.12 Glucose 116 H Calcium 8.5 Magnesium 1.8 Total Bilirubin 2.06 H AST 41 H ALT 23 Alkaline Phosphatase 139 H Ammonia 16 Total Protein 7.9 Albumin 2.5 L TSH 0.88 Urine Color Yellow Urine Clarity Clear Urine pH 6.0 Ur Specific [place] 1.015 Urine Protein Negative Urine Ketones Negative Urine Blood Moderate H Urine Nitrite Negative Urine Bilirubin Negative Urine Urobilinogen 0.2 Ur Leukocyte Esterase Negative Urine RBC 10-20 H Urine WBC Negative Ur Epithelial Cells Rare Urine Crystals Negative Urine Bacteria Rare Urine Casts Negative Urine Mucus Negative Ur Culture Indicated? No Urine Glucose Negative COVID-19 Source SARS-CoV-2 (PCR) 09/03/24 09/04/24 23:38 06:18 WBC 4.25 L RBC 2.81 L Hgb 9.1 L Hct 26.2 L MCV 93 MCH 32.4 MCHC 34.7 RDW 13.2 Plt Count 34 L MPV 12.4 H Immature Gran % Neutrophils % Lymphocytes % Monocytes % Eosinophils % Basophils % Nucleated RBC % Absolute Neutrophils Absolute Lymphocytes Absolute Monocytes Absolute Eosinophils Absolute Basophils PT 15.5 H INR 1.6 H Sodium 139 Potassium 3.8 Chloride 107 Carbon Dioxide 21.7 Anion Gap 10.3 BUN 28 H Creatinine 1.8 H Est GFR (CKD-EPI 2020) 37.12 Glucose 102 Calcium 8.4 L Magnesium 1.7 L Total Bilirubin 2.14 H AST 59 H ALT 23 Alkaline Phosphatase 115 Ammonia Total Protein 7.1 Albumin 2.2 L TSH Urine Color Urine Clarity Urine pH Ur Specific [place] Urine Protein Urine Ketones Urine Blood Urine Nitrite Urine Bilirubin Urine Urobilinogen Ur Leukocyte Esterase Urine RBC Urine WBC Ur Epithelial Cells Urine Crystals Urine Bacteria Urine Casts Urine Mucus Ur Culture Indicated? Urine Glucose COVID-19 Source Nasal/Nares SARS-CoV-2 (PCR) Negative Time Spent with Patient Time Spent with Patient: >50 minutes Time was spent: preparing to see the patient(eg.review tests), obtaining and/or reviewing separately otained hiistory, ordering medications,tests, procedures, referring, communicating with other health acute care clinical nurse specialist, indepentently interpreting results, counseling the patient and care coordination
--- NOTE | 2024-09-04 09:46 | DI.VRAD_ITS ---
PROCEDURE INFORMATION: Exam: CT Chest Without Contrast; Diagnostic Exam date and time: 09/04/2024 8:27 AM Age: 84 years old Clinical indication: Other: Mass upper right lobe TECHNIQUE: Imaging protocol: Diagnostic computed tomography of the chest without contrast. Radiation optimization: All CT scans at this facility use at least one of these dose optimization techniques: automated exposure control; mA and/or kV adjustment per patient size (includes targeted exams where dose is matched to clinical indication); or iterative reconstruction. COMPARISON: CT CHEST PE CTA 09/28/2023 1:01 PM FINDINGS: Lungs: Subpleural interstitial densities consistent with chronic lung changes. Honeycomb appearance in the posterior lower lobes consistent with chronic lung changes . No mass identified. No mass in the right upper lobe Pleural spaces: Unremarkable. No pneumothorax. No pleural effusion. Heart: Unremarkable. No cardiomegaly. No pericardial effusion. Lymph nodes: Unremarkable. No enlarged lymph nodes. Vasculature: Unremarkable. No aortic aneurysm. Gallbladder and biliary ducts: Gallstones in the gallbladder Pancreas: Pancreatic atrophy Spleen: Splenomegaly 16 cm . Bones/joints: Unremarkable. No acute fracture. Soft tissues: Unremarkable. IMPRESSION: 1. No mass identified. No mass in the right upper lobe 2. Subpleural interstitial densities consistent with chronic lung changes. Honeycomb appearance in the posterior lower lobes consistent with chronic lung changes . 3. Splenomegaly 16 cm . Differential diagnosis of splenomegaly is lymphoma/leukemia, mononucleosis, hemolytic anemia, portal hypertension. 4 gallstones in the gallbladder Dictated and Authenticated by: Trice Dos Santos MD. Ordering:LOGAN Ku MD
--- NOTE | 2024-09-04 09:53 | IN_ITS ---
Date of service: 09/04/24 Time of Service: 09:35 PT Notes Visit Reasons: Unsteady gait, Enlarged ventricles of the brain Inpatient Physical Therapy Evaluation I certify the need for these services as being medically necessary and skilled as furnished under this plan of treatment while under my care. Please sign and return within 14 days if you agree with the plan of care listed below.? Thank you for this referral! ? Referring Physician? Date Referring Doctor:? PT Orders: PT CONSULT for Precautions: Patient Profile/Admitting Diagnosis:? This is an 84-year-old gentleman adm 09/03/24 with sudden onset of neurological symptoms now manifesting fever with possible source of the urine with a history of prostate cancer and radiation therapy. The patient reports he had difficulty getting into his car at work and fell. Was not having urinary symptoms and had no fever or chills reported at home. His imaging did suggest enlargement of the ventricles the patient does not have a history of dementia though he is having a acute onset of unsteady gait. Normal pressure hydrocephalus is being entertained but this can be further evaluated as an outpatient. Patient will be admitted with PT evaluation and close monitoring while treating his acute febrile state as possible UTI but lumbar puncture should be considered even after the initial treatment with IV Rocephin 2 g. [place] [facility] [place] follow[place] MRI which was ordered for first available time. Also high-volume LP could be done to rule out normal pressure hydrocephalus. He is a full code. 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) PFT impression from August 24, 2018 showed mild restrictive lung disease Hypertension (Chronic) COPD (chronic obstructive pulmonary disease) GERD (gastroesophageal reflux disease) Otosclerosis of both ears Bronchospasm Community acquired pneumonia of both lungs Rales Listed as basilar rales in PCP chartFever Acute blood loss anemia Acute urinary retention Hematuria Esophageal varices Carpal tunnel syndrome Cirrhosis of liver Other otosclerosis, bilateral Internal hemorrhoid Gross hematuria Prostate cancer Right carpal tunnel syndrome History of ear surgery S/P endoscopic carpal tunnel release (09/09/18) Medications: See chart Social History/Home Situation: Lives alone in a mobile home in [place] with several steps to enter. 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 Does his own cooking, cleaning, shopping. Normally walks without an A.D. Has 3 step daughters. Hoping one will come in later today to bring him hearing aid batteries and an outfit. Subjective: Reports he is feeling much better today. Hoping to find out from the doctor why he fell. Objective: Mental Status: Patient is alert and oriented. Pain: No c/o pain Vital Signs: 756 am: 116/52 77 bpm 99% RA ROM/Strength: Upper extremities: WNL Lower extremities: WNL Sensation: Denies numbness or tingling. Soft tissue/edema: Bruise on anterior left elbow from EMT IV Bed Mobility: Supine to sit S/I Transfers: Sit to/from stand cg/supervision Gait: Ambulated 120 feet with cga only with bilateral LE ER with slight lateral sway with mild unsteadiness. Mild SOB by end of walking. Expect this is his baseline. Balance: Able to stand for 30 seconds without LOB [facility] AM-PAC 6 clicks Basic Mobility Inpatient Short Form: Raw Score: 23? CMS Score: 11.2% Informed Consent/Education:? Patient instructed in purpose of PT consult and plan of care and is agreeable Assessment:? Patient is an 84? year old male adm on 09/03/24 s/p fall with neurological symptoms and urological symptoms.? Patient appears to be mobilizing at or near his baseline with slight SOB with walking and slightly unsteady but expect this is near his baseline. Recommend family/friends checking in with patient upon discharge. Patient is assessed as:? Low 62757?? complexity based on the following: History: age, recent fall Examination: see above Presentation: Stable and uncomplicated? Decision Making:? Low (0 history, 1-2 exam, stable/predictable, easy 20) Physical Therapy Goals: 1 day Able to perform mobility in room independently without LOB or SOB. Plan of Care/Treatment Plan: Check in the patient tomorrow. Will discharge from PT if mobility is the same or better. Plan of care has been reviewed with the CORRECTIONAL CLASSIFICATION COUNSELOR providing the service under Physical Therapy direction. Initiate Physical Therapy intervention for strengthening, bed mobility, transfers, gait, stairs, balance training, use of assistive device as needed. DISCHARGE RECOMMENDATIONS: Informed consent Prior to the start and throughout the course of the examination and treatment, patient was made aware of the specifics and purpose of the physical assessment and treatment procedures. Appropriate draping procedures were utilized to protect modesty where applicable. Billing Charges: Treatment Units Time Duration Manual Therapy(96633) Hands-on techniques to modulate pain increase joint range of motion reduce or eliminate soft tissue swelling, inflammation, or restriction facilitate relaxation and improve contractile and non-contractile tissue extensibility ? ? Therapeutic Procedures (11994) Instruction in therapeutic exercises to develop strength and endurance, range of motion and flexibility. HEP instruction and review: Provided skilled instruction in proper exercise performance: Provided skilled manual cues to facilitate proper muscle recruitment and/or movement pattern Neurological Re-Education(20897) To improve balance, coordination, kinesthetic and proprioceptive sensations. ? ? Ultrasound(46598) To promote healing. ? ? Gait Training(07329) ? ? Therapeutic Activity(16215) Instruction in dynamic activities with one on one patient contact by the provider to improve functional performance as follows: ? ? Self Care Training(19406) ? ? E-Stim (Attended)(12788) ? ? Low IE(98504) 1 18 Mod IE(83443) ? ? High IE(69433) ? ? Time Coded Treatment Time ? 0 Total Treatment Time ? 18
[2024-09-05 02:31] VITALS: BP 101/54; PULSE 77; RESP 19; TEMP 37.2; O2SAT 97
[2024-09-05] MEDS: Normal Saline Flush 10 ML SYR IVP ×3 (05:37→20:20)
[2024-09-05] MEDS: cefTRIAXone 1 GM/50 ML BAG IVPB (05:38)
[2024-09-05 06:39] LABS: Abs Immature Grans 0.01 10^3/uL (0.0-0.06); Absolute Basophil Count 0.03 10^3/uL (0.0-0.2); Absolute Eosinophil Count 0.09 10^3/uL (0.0-0.7); Absolute Lymphocyte Count 0.65 10^3/uL (1.2-3.4); Absolute Monocyte Count 0.58 10^3/uL (0.1-0.8); Absolute Neutrophil Count 3.44 10^3/uL (1.2-6.7); Basophils % 0.6 %; Eosinophils % 1.9 %; HCT 29.6 % (40.0-50.0); HGB 10.1 g/dL (13.5-17.5); Immature Grans % 0.2 %; Lymphocytes % 13.5 %; MCH 31.9 pg (27.0-33.0); MCHC 34.1 % (32.0-36.0); MCV 93 fL (80-95); Monocytes % 12.1 %; Neutrophils % 71.7 %; RBC 3.17 10^6/uL (4.36-5.78); RDW 12.7 % (11.8-14.1); RDW-SD 43.8 fL
[2024-09-05 07:00] LABS: ALT 29 U/L (16-63); AST 59 U/L (15-37); Albumin 2.1 g/dL (3.4-5.0); Alkaline Phosphatase 117 U/L (46-116); Anion Gap 12.1 mmol/L (3-11); BUN 31 mg/dL (7-18); CO2 19.9 mmol/L (21.0-32.0); CREATININE 1.8 mg/dL (0.70-1.30); Calcium 8.3 mg/dL (8.5-10.1); Chloride 106 mmol/L (98-107); Diff Comment PLT Morph Reviewed; Estimated GFR 37.12 (mL/min/1.73m2); Glucose 113 mg/dL (74-106); Magnesium 1.7 mg/dL (1.8-2.4); Platelet Count 39 10^3/uL (130-400); Potassium 3.7 mmol/L (3.5-5.1); RBC Morphology Normal; Sodium 138 mmol/L (136-145); Total Protein 7.3 g/dL (6.4-8.2)
[2024-09-05 08:00] VITALS: BP 124/61; PULSE 77; RESP 18; TEMP 36.4; O2SAT 98
[2024-09-05] MEDS: Cyanocobalamin 500 MCG TAB 1000 MCG PO (09:01)
[2024-09-05] MEDS: Thiamine 100 MG TAB PO (09:01)
[2024-09-05] MEDS: Calcium 600mg/Vit D 200U TAB 1 TAB PO (09:01)
[2024-09-05 10:13] VITALS: PULSE 79
--- NOTE | 2024-09-05 11:50 | PT.INTREAT ---
PT Notes Visit Reasons: Unsteady gait, Enlarged ventricles of the brain Inpatient Physical Therapy Treatment Note [facility] Date: 09/05/24 PRECAUTIONS:Standard SUBJECTIVE: Pt reports that he has been having pain in his R ear and side of his face that he let his nurse know about but he is also having pain on the bottom of his R foot. OBJECTIVE: Therapeutic Activities (68280o[]): Direct one-on-one instruction in dynamic activities to improve functional performance. ? BED MOBILITY/TRANSFERS? Supine-sit: SBA? Sit-stand: SBA? Stand-sit: SBA? Provided skilled cues and instruction on performance and technique throughout. Gait Training (41386c[]): Direct one-on-one instruction and skilled instruction in: GAIT? Assistive Device: FWW? Weight bearing: Full Assist: CGA/SBA? Distance:? Approx 200ft ? Therapeutic Exercises (98911x[]): Direct one-on-one instruction in therapeutic exercises to develop strength, endurance, range of motion and flexibility. ? Exercises ? pt was too fatigued to exercise. ASSESSMENT:? Pt was motivated to ambulate but was too fatigued post ambulation to exercise. I did let the DISTRIBUTION SUPERVISOR know about his foot and she was going to have the Nurse check in on that. PLAN: Cont as per PT POC. TREATMENT CODE/TIME: 11:35-11:50 (15) TA DISCHARGE RECOMMENDATION: []
[2024-09-05 11:51] VITALS: BP 146/56; PULSE 81; RESP 18; TEMP 36.9; O2SAT 98
[2024-09-05] MEDS: Acetaminophen 500 MG TAB PO ×2 (12:01→20:19)
--- NOTE | 2024-09-05 13:36 | W.PM.PROGNOT ---
Date of Service Date of service: 09/05/24 Time of Service: 13:36 Assessment and Plan Assessment and plan (1) Cellulitis: Status: Acute Assessment and plan: right side face/pinna wears hearing aid on ceftriaxone, broaden to cefepime to add pseudomonas coverage wash outer ear with hibiclens (2) Abnormal head CT: Status: Acute Assessment and plan: Enlarged ventricles pointing to possible normal pressure hydrocephalus but no evidence of acute changes after his fall or metastatic disease with history of bladder cancer. MRI of the brain for 09/06/2024 (3) Fever: Start date: 09/04/24 Assessment and plan: Blood cultures x 2 results pending Urine culture pending , UA was negative now on cefepime Possible LP mentioned- risk of herniation to be considered Qualifiers: Fever type: due to other condition Qualified Code(s): R50.81 - Fever presenting with conditions classified elsewhere (4) Fall: Status: Acute Assessment and plan: PT consult in progress Reporting feeling better Qualifiers: Encounter type: initial encounter Qualified Code(s): W19.XXXA - Unspecified fall, initial encounter (5) SPENCER (nonalcoholic steatohepatitis): Status: Chronic Assessment and plan: continue to monitor CMP in AM (6) CKD (chronic kidney disease), stage III: Status: Chronic Assessment and plan: GFR > 30 and Cr at 1.8 close to baseline of 1.6-1.7 Qualifiers: Chronic kidney disease stage 3 subtype: stage 3b (GFR 30-44) Qualified Code(s): N18.32 - Chronic kidney disease, stage 3b (7) Restrictive lung disease: Status: Chronic Assessment and plan: Continue home medicine regimen for chronic lung findings without evidence of acute process by imaging but there is an abnormal right upper lung opacity Continue Rocephin to cover possible pneumonia. There was initial concern for possible mass. CT results: IMPRESSION: 1. No mass identified. No mass in the right upper lobe 2. Subpleural interstitial densities consistent with chronic lung changes. Honeycomb appearance in the posterior lower lobes consistent with chronic lung changes . 3. Splenomegaly 16 cm . Differential diagnosis of splenomegaly is lymphoma/leukemia, mononucleosis, hemolytic anemia, portal hypertension. 4 gallstones in the gallbladder pending (8) Thrombocytopenia: Status: Chronic Assessment and plan: Associated with SPENCER. Platelet now 34 from 44 Will monitor for bleeding Might need transfusion at < 20 DVT prophylaxis: TEDs (9) Hypertension: Status: Chronic Assessment and plan: Continue home medicine regimen Qualifiers: Hypertension type: primary hypertension Qualified Code(s): I10 - Essential (primary) hypertension (10) History of prostate cancer: Status: Chronic Assessment and plan: Without evidence of recurrence s/p radiation therapy initially. Concern for metastases with new symptoms and imaging should help. -PSA is pending (11) Anemia: Status: Chronic Assessment and plan: Hgb at 10.3 on arrival now at 9.1 will continue to monitor Stool for occult blood Discussed with Dr. Moctezuma Subjective Subjective Patient reports: tolerating liquids well, tolerating a regular diet, voiding w/o difficulty and afebrile; denies shortness of breath Exam Narrative Exam Narrative: Elderly gentleman of stated age no acute distress head is atraumatic normocephalic normal facial features in appearance symmetrical eyes nonicteric noninjected EOMs intact oral mucosas moist neck is supple full range of motion no JVD cardiovascular regular rate and rhythm his respirations are even and unlabored breath sounds diminished in the bases abdomen is soft nontender with positive bowel sounds extremities are without edema moves all extremities equally. Area of erythema to the right side of his face approximately 4 cm marked with a skin marker area is warm to touch. No lesions noted. Objective Last Vital Signs Temp 36.9 C 09/05/24 11:51 Pulse 81 09/05/24 11:51 Resp 18 09/05/24 11:51 BP 146/56 H 09/05/24 11:51 Pulse Ox 98 09/05/24 11:51 Laboratory Results - last 24 hr 09/05/24 06:18 WBC 4.80 RBC 3.17 L Hgb 10.1 L Hct 29.6 L MCV 93 MCH 31.9 MCHC 34.1 RDW 12.7 Plt Count 39 L MPV Immature Gran % 0.2 Neutrophils % 71.7 Lymphocytes % 13.5 Monocytes % 12.1 Eosinophils % 1.9 Basophils % 0.6 Nucleated RBC % 0.0 Absolute Neutrophils 3.44 Absolute Lymphocytes 0.65 L Absolute Monocytes 0.58 Absolute Eosinophils 0.09 Absolute Basophils 0.03 RBC Morphology Normal Sodium 138 Potassium 3.7 Chloride 106 Carbon Dioxide 19.9 L Anion Gap 12.1 H BUN 31 H Creatinine 1.8 H Est GFR (CKD-EPI 2020) 37.12 Glucose 113 H Calcium 8.3 L Magnesium 1.7 L Total Bilirubin 1.20 H AST 59 H ALT 29 Alkaline Phosphatase 117 H Total Protein 7.3 Albumin 2.1 L Time Spent with Patient Time Spent with Patient: 35-49 minutes Time was spent: preparing to see the patient(eg.review tests), obtaining and/or reviewing separately otained hiistory, ordering medications,tests, procedures, indepentently interpreting results and counseling the patient
[2024-09-05] MEDS: CEFEPIME 2 GM in Normal Saline 100 ML IVPB (14:07)
[2024-09-05 15:22] VITALS: BP 117/53; PULSE 71; RESP 17; TEMP 36.7; O2SAT 98
[2024-09-05 20:15] VITALS: BP 117/54; PULSE 73; RESP 16; TEMP 36.6; O2SAT 99
[2024-09-06 01:55] VITALS: BP 122/54; PULSE 69; RESP 17; TEMP 36.7; O2SAT 98
[2024-09-06] MEDS: CEFEPIME 2 GM in Normal Saline 100 ML IVPB ×2 (03:11→14:27)
[2024-09-06 06:47] LABS: Abs Immature Grans 0.01 10^3/uL (0.0-0.06); Absolute Basophil Count 0.03 10^3/uL (0.0-0.2); Absolute Eosinophil Count 0.23 10^3/uL (0.0-0.7); Absolute Lymphocyte Count 0.46 10^3/uL (1.2-3.4); Absolute Monocyte Count 0.33 10^3/uL (0.1-0.8); Basophils % 0.9 %; Eosinophils % 7.3 %; HCT 29.4 % (40.0-50.0); HGB 10.2 g/dL (13.5-17.5); Immature Grans % 0.3 %; Lymphocytes % 14.6 %; MCH 32.3 pg (27.0-33.0); MCHC 34.7 % (32.0-36.0); MCV 93 fL (80-95); Monocytes % 10.4 %; Neutrophils % 66.5 %; RBC 3.16 10^6/uL (4.36-5.78); RDW 12.8 % (11.8-14.1); RDW-SD 43.9 fL; WBC 3.16 10^3/uL (4.4-10.8)
[2024-09-06 07:03] LABS: Diff Comment Diff Reviewed; Platelet Count 38 10^3/uL (130-400); RBC Morphology Normal
[2024-09-06 07:05] LABS: ALT 28 U/L (16-63); AST 55 U/L (15-37); Albumin 2.1 g/dL (3.4-5.0); Alkaline Phosphatase 125 U/L (46-116); Anion Gap 10.7 mmol/L (3-11); BUN 32 mg/dL (7-18); CO2 21.3 mmol/L (21.0-32.0); CREATININE 1.7 mg/dL (0.70-1.30); Calcium 8.5 mg/dL (8.5-10.1); Chloride 107 mmol/L (98-107); Estimated GFR 39.75 (mL/min/1.73m2); Glucose 107 mg/dL (74-106); Potassium 4.1 mmol/L (3.5-5.1); Sodium 139 mmol/L (136-145); Total Protein 7.3 g/dL (6.4-8.2)
[2024-09-06 07:37] VITALS: BP 124/70; PULSE 74; RESP 18; TEMP 36.9; O2SAT 98
[2024-09-06] MEDS: Cyanocobalamin 500 MCG TAB 1000 MCG PO (07:52)
[2024-09-06] MEDS: Thiamine 100 MG TAB PO (07:52)
[2024-09-06] MEDS: Calcium 600mg/Vit D 200U TAB 1 TAB PO (07:52)
--- NOTE | 2024-09-06 08:00 | DI.MRI_ITS ---
Exam(s) MR BRAIN WO EXAM: MR BRAIN WO CLINICAL HISTORY: Enlarged ventricles with unsteady gait TECHNIQUE: Multiplanar multisequence MRI of the brain was performed. COMPARISON: CT CT HEAD WO from 09/03/2024 FINDINGS: The examination is limited due to patient motion artifact. VENTRICLES AND EXTRA AXIAL SPACES: Mild prominence of the ventricular system present. The do appear to be slightly out of proportion to the degree of sulcal enlargement. NPH should be considered. MIDLINE SHIFT: None. CEREBRAL PARENCHYMA: No focus of restricted diffusion to suggest acute infarct. No space-occupying le david identified. There are areas of hyperintense signal seen in the white matter on the FLAIR and T2 weighted images consistent with chronic microvascular ischemic disease. HEMORRHAGE: None. BRAINSTEM/CEREBELLUM: Normal. CALVARIUM: Normal. VISUALIZED PARANASAL SINUSES/MASTOIDS:Clear. [place]: Normal flow void. PITUITARY GLAND: Unremarkable. OTHER FINDINGS: None. IMPRESSION: 1. No evidence of an acute infarct. 2. Mild prominence of the ventricular system out of proportion to the degree of sulcal enlargement. NPH should be considered. Please correlate clinically. 3. Findings of chronic microvascular ischemic disease. DATA REPOSITORY:
[2024-09-06 10:00] VITALS: BP 121/60
[2024-09-06] MEDS: Chlorthalidone 25 MG TAB 12.5 MG PO (10:01)
[2024-09-06] MEDS: Normal Saline Flush 10 ML SYR IVP ×3 (10:02→15:58)
--- NOTE | 2024-09-06 10:39 | PT.INTREAT ---
PT Notes Visit Reasons: Unsteady gait, Enlarged ventricles of the brain Inpatient Physical Therapy Treatment Note [facility] Date: 09/06/24 PRECAUTIONS:Standard SUBJECTIVE: Patient reports he is feeling much better today just feeling slight weakness in his legs. OBJECTIVE: Therapeutic Activities (11636c 2): Direct one-on-one instruction in dynamic activities to improve functional performance. ? BED MOBILITY/TRANSFERS? Supine-sit: SBA? Sit-stand: SBA? Stand-sit: SBA? Provided skilled cues and instruction on performance and technique throughout. Ambulation:? SBA with FWW 150 feet reciprocal pattern level surfaces including multidirectional turns. Standby assist without device 100 feet x 1 ,125 feet x 1 level surfaces reciprocal pattern with noticeable decreased step length bilaterally without device, bilateral upper extremity noted to be in slight high guard position increased lateral weight shifting noted. No loss of balance.? Stairs two 6 inch steps x 2, three 4 inch steps x 2 with bilateral rails standby assist. ? Therapeutic Exercises (69654w[]): Direct one-on-one instruction in therapeutic exercises to develop strength, endurance, range of motion and flexibility. ? Exercises ? ASSESSMENT:? Pt with improved stability to attempt ambulation without AD. Pt demonstrates reduced step length without AD however no loss of balance. PLAN: Cont strengthening, transfers, gait and balance with least restrictive device until appropriate for discharge TREATMENT CODE/TIME:36339 x 35 mins for 2 units [id number] DISCHARGE RECOMMENDATION: Home with HH PT
[2024-09-06 10:51] LABS: PSA, Diagnostic 0.2 ng/mL (<=6.5)
[2024-09-06 11:39] VITALS: BP 132/82; PULSE 86; RESP 18; TEMP 36.4; O2SAT 98
--- NOTE | 2024-09-06 13:59 | PT.INTREAT ---
PT Notes Visit Reasons: Unsteady gait, Enlarged ventricles of the brain Inpatient Physical Therapy Treatment Note [facility] Date: PRECAUTIONS:Standard SUBJECTIVE: Pt reports that his ear a somewhat less swollen today. OBJECTIVE: Therapeutic Activities (90303d[1]): Direct one-on-one instruction in dynamic activities to improve functional performance. ? BED MOBILITY/TRANSFERS? Supine-sit: I? Sit-supine: I ? Sit-stand: SBA? Stand-sit: SBA ? Provided skilled cues and instruction on performance and technique throughout. Gait Training (63988x[]): Direct one-on-one instruction and skilled instruction in: ? Therapeutic Exercises (35594u[]): Direct one-on-one instruction in therapeutic exercises to develop strength, endurance, range of motion and flexibility. ? Exercises ? Rowing x 20 Shoulder flexion x 10 Horz abd x 10 Knee ext x 10 Hip abd x 10 ASSESSMENT:? Pt was fairly quickly fatigued during his session. PLAN: Cont as per PT POC. TREATMENT CODE/TIME: 1-1:15 (15) TA DISCHARGE RECOMMENDATION: []
--- NOTE | 2024-09-06 15:29 | PDOC.CMPRO ---
Date of service: 09/06/24 Time of Service: 15:29 Care Management Progress Note Progress Note Text Progress Note Text: Marleny is sitting on the side of his bed when CM met with him. He is polite and easily engages in conversation. He identified housing and food concerns and accepted a referral to [facility] and [facility]. He agrees to outpt PT, if recommended. His neighbor will provide transportation when he is medically ready to discharge. Discharge Potential Discharge Needs: PCP F/U Appt Anticipated Barriers to Discharge: Medical Status Patient/Family Education Needs: Review discharge instructions, discuss Ask Me Three Transportation: Private vehicle Plan: Discharge home via private vehicle with his neighbor when medically ready. Follow up with discharge plan of care and community providers. SDOH(Care Management) Screening Will the Patient Participate in the Screening?: Yes Do you worry about having a steady place to live?: no Problems where you live: no known problems In the past 12 months, have you had to go without electric, gas, oil or water in your home?: no Have you or anyone in your house had to go without enough food to eat?: no Has lack of transportation kept you from medical appointments or from doing things needed for daily living?: no Has anyone in your support network made you feel unsafe for any reason?: no Interventions Care Management Referrals: [facility] (Community resources. Help with a referral Junior.) and [facility] (Interested in MOW, Support with Medicare options)
[2024-09-06] MEDS: Pantoprazole 40 MG VIAL IVP (15:57)
[2024-09-06] MEDS: Cephalexin 500 MG CAP PO (15:58)
[2024-09-06] MEDS: Tiotropium Bromide-Respimat 10 PUFF INH 2 PUFF IH (16:01)
[2024-09-06 16:07] VITALS: BP 119/98; PULSE 87; RESP 18; TEMP 36.2; O2SAT 98
[2024-09-06 16:13] VITALS: BP 127/61
[2024-09-06 16:46] LABS: LDH 211 U/L (85-227)
[2024-09-06 17:39] LABS: Ferritin 166 ng/mL (26-388)
--- NOTE | 2024-09-06 18:06 | W.PM.DS.N ---
Date of service: 09/06/24 Time of Service: 18:06 DS: Diagnosis Discharge Diagnosis (1) Cellulitis: Status: Acute (2) Abnormal head CT: Status: Acute (3) Fever: (4) Fall: Status: Acute (5) BROWN (nonalcoholic steatohepatitis): Status: Chronic (6) CKD (chronic kidney disease), stage III: Status: Chronic (7) Restrictive lung disease: Status: Chronic (8) Thrombocytopenia: Status: Chronic (9) Hypertension: Status: Chronic (10) History of prostate cancer: Status: Chronic (11) Anemia: Status: Chronic Discharge Plan Disposition Patient Disposition: Home Condition: Improving Discharge Details Reason For Visit: Unsteady gait, Enlarged ventricles of the brain Admit Date/Time: 09/03/24 23:27 Admit Provider: Kings Segundo Attending Provider: Kings Segundo Primary Care Provider: Ulices Simpson [facility] Hospital Course: This 85-year-old male patient living alone with past medical history of prostate cancer status post radiotherapy, CKD, hypertension, Brown with cirrhosis and thrombocytopenia presented to the ED on 09/03/2024 for acute onset of weakness and inability to stand. 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 Reported sustaining a fall in attempt to get into his car and calling the ambulance; denied evident injury neck injury, prodromal symptoms such as fevers, chills, gastrointestinal, or urinary symptoms. Workup in the ED was positive for CT scan of his head showing enlarged ventricles but negative for acute fracture or injuries. Blood work showed slight anemia, slight metabolic acidosis with decreased T CO2 without leukocytosis. The patient also had tremors when attempting to move from the gurney. Neurosurgery was consulted in the ED as well as neurology without recommendation for imaging at evaluation for suspected normal pressure hydrocephalus?they consider that this should be a long-term issue. The patient was admitted to the medical surgical floor by the hospital for evaluation and management of unsteady gait, abnormal head CT, fever. During the stay the patient developed over right sided cellulitis to his face extending to release here. The patient has hearing aid as well as ear implants. She is patient was initiated on cefepime IV with improvement of the cellulitis, without fever. Blood cultures were negative x 48 hours. The patient will be sent home on oral antibiotics with follow-up with ENT. Physical therapy was completed with recommendation for outpatient physical therapy. She is the patient is back to baseline with his ambulatory function. MRI was completed with the following conclusions: IMPRESSION: 1. No evidence of an acute infarct. 2. Mild prominence of the ventricular system out of proportion to the degree of sulcal enlargement. NPH should be considered. Please correlate clinically. 3. Findings of chronic microvascular ischemic disease. Those findings are similar to the one seen on the initial CT of the head. The patient will have to follow-up with neurosurgery, neurology and his primary care practitioner within 7 days of discharge. Oncology hematology referral was completed due to CT scan results with splenomegaly with differential of lymphoma/leukemia; flow cytometry labs, LDH and ferritin was ordered and pending with follow-up as per primary care practitioner. Recommendations for follow-up CBC as per primary care practitioner discretion. Discussed with Dr. Moctezuma Home Meds and New Rx's Prescriptions: New cyanocobalamin (vitamin B-12) [Vitamin B-12] 500 mcg Tablet 1,000 mcg PO DAILY Qty: 30 0RF thiamine mononitrate (vit B1) [Vitamin B-1 (mononitrate)] 100 mg Tablet 100 mg PO DAILY Qty: 30 0RF cephalexin 500 mg capsule 500 mg PO QID Qty: 24 0RF ciprofloxacin HCl [Cipro] 500 mg tablet 500 mg PO Q12H Qty: 12 0RF Continued chlorthalidone 25 mg tablet 12.5 mg PO Q OTHER DAY Patient Comments: Take 1/2 tablet by mouth once a day with losartan magnesium oxide 250 MG tablet 250 mg PO DAILY AM Spiriva Respimat 2.5 mcg/actuation mist 2 puff inhalation DAILY Calcium 600 + D(3) 600 mg calcium- 200 unit Capsule 1 cap PO DAILY albuterol sulfate [ProAir HFA] 8.5 GM HFA aerosol inhaler 2 puff Inhalation Q4H Qty: 0 0RF losartan 100 mg tablet 100 mg PO DAILY propranolol 80 mg capsule,extended release 24 hr 80 mg PO DAILY Patient Comments: Pt states he takes every other day; took 02/17/24 mirabegron [Myrbetriq] 25 mg tablet extended release 24 hr 25 mg PO DAILY omeprazole 20 mg capsule,delayed release(DR/EC) 40 mg PO DAILY Qty: 0 0RF acetaminophen [Tylenol Extra Strength] 500 mg tablet 500 mg PO Q6H PRN Discharge Instructions Referrals: NEUROLOGY,[facility] [OTHER] - (Normal pressure Hydrocephalus presenting with gait instability- returned to normal gait at 48 hours. MRI Also developed right sided ear- face cellulitis with ear implants) Blake Costello [ NON-[facility] STAFF PHYSICIAN] - (Questioning Lymphoma: Thrombocytopenia, splenomegaly, normal pressure hydrocephalus; LDH and ferritin and flow cytometry leukemia/lymphoma) Austin Gupta MD [ [facility] STAFF PHYSICIAN] - (F/u with a week of discharge please. Right-sided cellulitis/Otitis with ear implants- IV cefepime inpatient X24 hours. On cipro and Keflex outpatient for 6 days ) Juan Nolasco [ NON-[facility] STAFF PHYSICIAN] - (F/u within 7 days of discharge please :Normal pressure hydrocephalus non-focal, presenting with gait instability and resolved at the time of d/c) Ulices Simpson [Primary Care Provider] - (F/u within 7 days of discharge ) Activity:: Activity as Tolerated Equipment/Supplies:: No Equipment Needed Diet:: heart healthy Discharge Orders Discharge Orders: Discharge Order (Routine); Ordered 09/06/24 Ordered By: Gina Brandon DS: Summary Time Spent with Patient providing and/or coordinating discharge services: Greater than 30 minutes Status at Discharge Functional status at discharge: independent ambulation Overall status at discharge: patient is progressing back to baseline Mental Status: mental status grossly normal Speech and Movement: speech and movement normal Mood: congruent mood Affect: normal affect Quality:SDOH Health Related Social Needs: Health related social needs housing instability, housed, with risk of homelessness(Z59.811) Exam Narrative Exam Narrative: Constitutional The patient sitting at he edge of the bed w/o acute distress HENMT: Head is atraumatic, normocephalic. Facial structures with normal appearance except for improving redness to right-sided face and ear- no drainage Eyes: Well aligned, intact ROM Neck: Normal ROM, no meningeal signs Neuro:alert and oriented X3 Resp: shallow breath sounds , speaks in full sentences,clear lung bilaterally Cardio: regular rhythm, S1, S2, no murmur,bilateral radial and dorsalis pedis pulses are positive, palpable GI: Abdomen is not distended, soft and non tender, bowel sounds are present Integumentary: redness/ cellulitis right ear- temporal face Extremities: strength 5/5 to bilateral lower and upper extremities Psych: RASS 0, congruent mood and normal affect. Psych Mental Status: mental status grossly normal Speech and Movement: speech and movement normal Mood: congruent mood Affect: normal affect DS: Data Vitals/I&O Vitals and I&O: Vital Signs Temperature 36.2 C L 09/06/24 16:07 Temperature Source Temporal Artery Scan 09/06/24 16:07 Pulse 87 09/06/24 16:07 Pulse Rhythm Regular 09/04/24 01:09 Respiratory Rate 18 09/06/24 16:07 Respiratory Effort Normal, Non-Labored 09/04/24 01:09 Respiratory Depth Normal 09/04/24 01:09 Respiratory Pattern Normal 09/04/24 01:09 Blood Pressure 127/61 09/06/24 16:13 Blood Pressure Mean 77 09/03/24 22:15 Pulse Oximetry 98 09/06/24 16:07 Oxygen Delivery Method Room Air 09/06/24 16:07 Oxygen Flow Rate 0 09/06/24 16:07 Pain Level 0 09/06/24 11:39 Comment RN notified 09/04/24 11:33 Intake & Output 09/05/24 09/06/24 09/06/24 23:59 11:59 23:59 Intake Total 100 / 120 100 / 200 100 / 200 Output Total 800 / 1100 500 / 500 Balance -700 / -980 -400 / -300 100 / -300 Weight 70.8 kg Intake: IV 100 / 120 100 / 200 100 / 200 Output: Urine 800 / 1100 500 / 500 Other: Urine Color Yellow Yellow Light Dalila Urine Appearance Cloudy Urine Odor Normal Comment unknown void amount into toilet Stool Size Small Stool Characteristics Formed Data Completed and Pending Labs on day of discharge: Labs from last 24 hours 09/06/24 09/06/24 09/03/24 16:23 06:25 18:08 WBC 3.16 L RBC 3.16 L Hgb 10.2 L Hct 29.4 L MCV 93 MCH 32.3 MCHC 34.7 RDW 12.8 Plt Count 38 L MPV Immature Gran % 0.3 Neutrophils % 66.5 Lymphocytes % 14.6 Monocytes % 10.4 Eosinophils % 7.3 Basophils % 0.9 Nucleated RBC % 0.0 Absolute Neutrophils 2.10 Absolute Lymphocytes 0.46 L Absolute Monocytes 0.33 Absolute Eosinophils 0.23 Absolute Basophils 0.03 RBC Morphology Normal Sodium 139 Potassium 4.1 Chloride 107 Carbon Dioxide 21.3 Anion Gap 10.7 BUN 32 H Creatinine 1.7 H Est GFR (CKD-EPI 2020) 39.75 Glucose 107 H Calcium 8.5 Ferritin 166 Total Bilirubin 1.20 H AST 55 H ALT 28 Alkaline Phosphatase 125 H Lactate Dehydrogenase 211 Total Protein 7.3 Albumin 2.1 L Prostate Specific Ag 0.2 Lymph/Leukemia Panel Pending Preliminary micro results at discharge 09/04/24 06:30 Blood Culture - Preliminary Blood NO GROWTH 48 HOURS 09/04/24 06:18 Blood Culture - Preliminary Blood NO GROWTH 48 HOURS PFSH All Active Problems (Updated 09/05/24 @ 13:39 by Jayde Mahan NP) Cellulitis (Acute) Anemia (Chronic) Unsteady gait (Acute) Abnormal head CT (Acute) Fall (Acute) Urinary incontinence (Acute) Abnormal gait (Acute) BROWN (nonalcoholic steatohepatitis) (Chronic) Radiation proctitis (Chronic) Coagulopathy (Chronic) Elevated INR (Acute) Chronic blood loss anemia (Chronic) Chronic radiation proctitis (Chronic) Anal stricture (Acute) Hematochezia (Acute) Cough (Acute) Urgency incontinence (Acute) Bladder cancer (Acute) Mixed hearing loss, bilateral (Acute) History of prostate cancer (Chronic) CKD (chronic kidney disease), stage III (Chronic) Thrombocytopenia (Chronic) Restrictive lung disease (Chronic) 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) PFT impression from August 24, 2018 showed mild restrictive lung disease Hypertension (Chronic) Medical History COPD (chronic obstructive pulmonary disease) GERD (gastroesophageal reflux disease) Otosclerosis of both ears Bronchospasm Community acquired pneumonia of both lungs Rales Listed as basilar rales in PCP chart Fever Acute blood loss anemia Acute urinary retention Hematuria Esophageal varices Carpal tunnel syndrome Cirrhosis of liver Other otosclerosis, bilateral Internal hemorrhoid Gross hematuria Prostate cancer Right carpal tunnel syndrome Surgical History History of ear surgery S/P endoscopic carpal tunnel release (09/09/18) Family History Mother No problems noted. Father Cardiovascular disease Brother No problems noted. 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
--- NOTE | 2024-09-06 18:44 | CMDISCH_ITS ---
Date of service: 09/06/24 Time of Service: 18:44 LACE Index Scoring Tool Questions: Length of Stay (in days): 3 Was the patient admitted via the E.D.?: Yes Comorbidities: Any Tumor and Liver or Renal Disease E.D. Visits: 0 Answers: Total Score: 11 Risk of Readmission: High Risk Care Management Discharge Plan Reason for Hospitalization: unsteady gait, cellulitis Discharge Plan: Marleny will return home today with no new services. He will transport home via [facility] private vehicle, coordinated by CM. He will follow up with his PCP and discharge plan of care. Patient/Family Education Needs: Review discharge instructions and limitations, discussion of self care needs including ask me three. Services Needed at Discharge: Transportation ([facility] private vehicle) SDOH Health Related Social Needs: Health related social needs housing instability, house d, with risk of homelessness(Z59.811) Care Management Referrals: [facility] (Community resources. Help with a referral Junior.) and [facility] (Interested in MOW, Support with Medicare options)
[2024-09-07 17:55] LABS: Leukemia/Lymphoma by FC (Blood (See below)
== END 2024-09-06 20:14 | disposition home or self-care (01) ==
LOC: ER 09-04 00:16 → MS 09-04 00:37
PROVIDERS: Nurse Practitioner Acute Care; Admitting Provider Family Medicine; Emergency Provider Emergency Medicine; PCP Student in an Organized Health Care Education/Training Program; Visit Provider Family Medicine
DX: R26.81 Unsteadiness on feet (principal); R93.0 Abnormal findings on diagnostic imaging of skull and head, not elsewhere classified; R50.9 Fever, unspecified; L03.211 Cellulitis of face; W19.XXXA Unspecified fall, initial encounter; N18.32 Chronic kidney disease, stage 3b; K75.81 Nonalcoholic steatohepatitis (NASH); J98.4 Other disorders of lung; I10 Essential (primary) hypertension; D69.6 Thrombocytopenia, unspecified; Z85.46 Personal history of malignant neoplasm of prostate; D64.9 Anemia, unspecified; E87.20 Acidosis, unspecified; R32 Unspecified urinary incontinence; D50.9 Iron deficiency anemia, unspecified; K62.7 Radiation proctitis; Y84.2 Radiological procedure and radiotherapy as the cause of abnormal reaction of the patient, or of later complication, without mention of misadventure at the time of the procedure; C67.9 Malignant neoplasm of bladder, unspecified; M48.061 Spinal stenosis, lumbar region without neurogenic claudication
CPT/HCPCS: 00123; 36410; 36415; 36416; 71250; 80053; 82962; 85027; 87040; 87635; 88185; 93005; 94640; 96365; 96366; 96367; 96372; 96375; 97161; 97530; 99285; 70450; 70551; 71046; 72131; 72170; 74177; 81003; 81015; 82140; 82270; 82728; 83615; 83735; 84153; 84443; 85025; 85610; 87086; 88184; 88189; 93010; 94664; 99223; 99232; 99233; 99239; G0378; J0692; J0696; J2470; J3420; J3490

== ENCOUNTER → 2024-10-08 09:01 | Outpatient (BNVA) | payer OTHER, MEDICARE, SELFPAY | PROVIDERS: PCP Student in an Organized Health Care Education/Training Program; Referring Provider Student in an Organized Health Care Education/Training Program; Visit Provider Urology | DX: C67.9 Malignant neoplasm of bladder, unspecified (principal) | CPT/HCPCS: 51720; J9201 ==

== ENCOUNTER → 2024-11-16 08:39 | Outpatient (BNVA) | payer OTHER, MEDICARE, SELFPAY | PROVIDERS: PCP Student in an Organized Health Care Education/Training Program; Referring Provider Student in an Organized Health Care Education/Training Program; Visit Provider Urology | DX: C67.9 Malignant neoplasm of bladder, unspecified (principal) | CPT/HCPCS: 52000 ==

== ENCOUNTER 2024-11-16 09:47 | Outpatient (REF) | payer OTHER, MEDICARE, SELFPAY ==
--- NOTE | 2024-11-16 09:30 | PAPNONF_PTH ---
PATIENT: Marleny Martin LOC: [facility] U#:[id number] AGE/SX: 84/M ROOM: RE11/16/[address]: Lonnie Saxena MD : [id number] BED: DIS: 11/16/2024 SPEC #: [id number] RECD: 11/16/24 12:55 STATUS: ROMIE REQ #: [id number] ARAMIS: 11/16/24 09:[address]: Lonnie Saxena [facility]PT: [facility] Cytology RECD BY: Raissa Nair ENTERED: 11/16/24 12:55 SP TYPE: MONI CROOK DR: Ulices Simpson Tissues: 1 - BODY FLUID CYTO(SPUTUM/URINE)[facility] Procedures: BODY FLUID CYTO(URINE/SPUTUM) Comments: [id number] (TV = 40 ml, 30 ml CYTOLYT ADDED) (REFRIGERATED)
== END 2024-11-16 09:48 | disposition home or self-care (01) ==
LOC: LBN 09:47
PROVIDERS: PCP Student in an Organized Health Care Education/Training Program; Visit Provider Urology
DX: C67.9 Malignant neoplasm of bladder, unspecified (principal); R82.89 Other abnormal findings on cytological and histological examination of urine
CPT/HCPCS: 88104

== ENCOUNTER 2024-11-22 06:43 | Day surgery (SDC) | payer OTHER, MEDICARE, SELFPAY ==
[2024-11-22] VITALS (14 sets, daily range): BP systolic 120–178; BP diastolic 44–102; PULSE 72–84; RESP 16–24; TEMP 36.2–36.7; O2SAT 97–98; BMI 26.3
--- NOTE | 2024-11-22 08:00 | ANES.PREOP_ITS ---
General Info Date of Service Date Performed: 11/22/24 Height: 5 ft 6 in Weight: 73.9 kg Body Mass Index (BMI): 26.3 Surgical Procedure: Operation Date: 11/22/24 09:10 Proposed Procedure Side Surgeon p Cystoscopy w/Transurethral Resection Bladder Tumor/ Insert Mitomycin into Bladder Lonnie Saxena MD Meds Allergies and Home Medications Allergies Allergy/AdvReac Type Severity Reaction Status Date / Time ATUL Inhibitors AdvReac cough Verified 11/22/24 07:36 Home Medication ?Medication ?Instructions ?Recorded magnesium oxide 250 mg PO DAILY AM 02/25/17 calcium 600 mg (as 1 cap PO DAILY 09/03/18 carbonate)-vitamin D3 5 mcg (200 unit) capsule (Calcium 600 + D(3)) albuterol sulfate 90 mcg/actuation 2 puff inhalation Q4H ##0 02/13/19 aerosol inhaler (ProAir HFA) tiotropium bromide 2.5 2 puff inhalation DAILY 05/31/21 mcg/actuation mist for inhalation (Spiriva Respimat) losartan 100 mg tablet 100 mg PO DAILY 10/08/23 mirabegron 25 mg tablet,extended 25 mg PO DAILY 10/08/23 release 24 hr (Myrbetriq) propranolol 80 mg capsule,24 80 mg PO DAILY 10/08/23 hr,extended release omeprazole 20 mg capsule,delayed 40 mg (2 x 20 mg) PO DAILY #0 caps 10/10/23 release acetaminophen 500 mg tablet 500 mg PO Q6H PRN 02/19/24 (Tylenol Extra Strength) chlorthalidone 25 mg tablet 12.5 mg PO Q OTHER DAY 03/11/24 cyanocobalamin (vitamin B-12) 500 1,000 mcg (2 x 500 mcg) PO DAILY 09/06/24 mcg tablet (Vitamin B-12) #30 tabs thiamine mononitrate (vit B1) 100 100 mg PO DAILY #30 tabs 09/06/24 mg tablet (Vitamin B-1 (mononitrate)) Current Visit Medications: Current Medications Generic Name Dose Route Start Last Admin Trade Name Freq PRN Reason Stop Dose Admin Cefazolin Sodium/Dextrose 2 gm in 50 mls @ 100 mls/hr 11/22/24 06:00 Ancef Duplex IVPB 12/19/24 23:59 PREOP MAXIMUS Ringer's Solution 1,000 mls @ 80 mls/hr 11/22/24 08:00 IV 12/22/24 07:59 [facility] IV Miscellaneous Supplies 1 each 11/22/24 06:00 Iv Access IV 12/19/24 23:59 DIRECTED MAXIMUS Mitomycin 40 mg 11/22/24 06:00 Mitomycin 40 Mg Vial BLADIN 11/22/24 23:59 DIRECTED MAXIMUS Sodium Chloride 0 ml 11/22/24 06:00 Normal Saline Flush 10 Ml Syr IV 12/19/24 23:59 PRN PRN Sodium Chloride 0 ml 11/22/24 06:00 Normal Saline 10 Ml Vial IJ 12/19/24 23:59 DIRECTED PRN Sterile Water 0 ml 11/22/24 06:00 Water,Injection,Sterile 10 Ml Vial IJ 12/19/24 23:59 DIRECTED PRN PFSH Active Problems Active Problems: Problem Status Onset Code Cellulitis Acute L03.90 Anemia Chronic D64.[address] Acute R93.0 SPENCER (nonalcoholic steatohepatitis) Chronic K75.81 Radiation proctitis Chronic K62.7 Coagulopathy Chronic D68.9 Bright red blood per rectum Resolved K62.5 Elevated INR Acute R79.1 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 Chronic radiation proctitis Chronic K62.7 Anal stricture Acute K62.4 Hematochezia Acute K92.1 Cough Acute R05.9 Urgency incontinence Acute N39.41 Bladder cancer Acute C67.9 Mixed hearing loss, bilateral Acute H90.6 S/P radiation therapy Resolved Z92.3 Thrombocytopenia Chronic D69.6 Hypertension Chronic I10 Medical History Medical History Fall Urinary incontinence Abnormal gait History of prostate cancer CKD (chronic kidney disease), stage III Restrictive lung disease 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) PFT impression from August 24, 2018 showed mild restrictive lung disease COPD (chronic obstructive pulmonary disease) GERD (gastroesophageal reflux disease) Otosclerosis of both ears Bronchospasm Community acquired pneumonia of both lungs Rales Listed as basilar rales in PCP chart Fever Acute blood loss anemia Acute urinary retention Hematuria Esophageal varices Carpal tunnel syndrome Cirrhosis of liver Other otosclerosis, bilateral Internal hemorrhoid Gross hematuria Prostate cancer Right carpal tunnel syndrome Surgical History Surgical History History of ear surgery S/P endoscopic carpal tunnel release (09/09/18) Tobacco Smoking/Tobacco Use Status: Never Alcohol Alcohol Intake: former Year quit: 1994 Substance Use Substance use: Never Substance use type: does not use Vital Signs and Lab Results Vital Signs Most Recent Vital Signs in EMR: Most Recent Vital Signs Temp Pulse Resp BP Pulse Ox 36.7 C 81 22 178/62 H 98 11/22/24 07:20 11/22/24 07:20 11/22/24 07:20 11/22/24 07:20 11/22/24 07:20 Lab Results Blood Type / Crossmatch: No Data to Display Complete Blood Count: No Data to Display Complete Metabolic Panel: No Data to Display Liver Function Panel: No Data to Display Coagulation Panel: No Data to Display Cardiac Panel: No Data to Display Arterial Blood Gas: No Data to Display Venous Blood Gas: No Data to Display Pancreas Panel: No Data to Display Thyroid Panel: No Data to Display Infectious Disease: No Data to Display Blood Cultures: No Data to Display Toxicology Panel: No Data to Display Imaging and Studies Imaging and Studies Study information below may be from another EMR and interpreted by another provider. Please see original notes in EMR for more complete details. EKG Summary: 12/08: sinus rhythm Echocardiogram Summary: 10/10/23: EF 58%, no significant valvular lesions Pulmonary Function Summary: 09/03: mild restrictive disease Anesthesia Assessment and Plan Anesthesia History Personal History: No History of Anesthesia Complications Family History: No Family History of Anesthesia Complications Exercise Tolerance Exercise Tolerance: Metabolic Equivalents>4 (difficult to assess in setting of COPD ) Pertinent Negatives Pertinent Negatives: No Symptoms of GERD Cardiac & Pulmonary Exam Cardiac Exam: Normal S1/S2 Heart Sounds Pulmonary Exam: Clear Bilateral Breath Sounds Implantable Cardiac Device Does patient have a Pacemaker or an ICD?: No Airway Exam Known Difficult Airway: No Mallampati Class: 2 Mouth Opening: Normal (> 3cm) Thyromental Distance: Greater than 3 cm Neck Range of Motion: Limited ROM Neck Circumference: Thick Teeth Condition: Removable Dentures/Plates Upper and Edentulous ASA Classification ASA Score: ASA 3 Emergency Case?: No NPO Status NPO Status: NPO Clears >2 hours, Solids >8 hours Anesthesia Plan Resuscitation Status: Full Code Anesthesia Technique: General Anesthesia Airway Planned: Natural Airway Monitors Used: Standard Monitors
[2024-11-22] MEDS: Lactated Ringers 1,000 ML 80 ML IV (08:05)
--- NOTE | 2024-11-22 08:05 | W.PM.HP.N ---
Date of service: 11/22/24 Time of Service: 08:06 Assessment and Plan Assessment and plan (1) Bladder cancer: Status: Acute Assessment and plan: We will perform cystoscopy with transurethral resection of his bladder tumor. We will instill Mitomycin-C into the bladder to help prevent recurrences. History of Present Illness History of Present Illness Chief Complaint: Bladder tumor Narrative: This is an 84-year-old gentleman who has a history of urothelial cell carcinoma of the bladder. When we identified involvement of the lamina propria, he was treated with an induction series of intravesical gemcitabine. We identified some papillary lesions on follow-up cystoscopy. These lesions were low-grade, noninvasive urothelial cell carcinoma when they were resected. He then had a maintenance dose of intravesical gemcitabine. He again had a recurrent papillary lesion in his bladder. I presume this is a low-grade, noninvasive tumor, but he presents now for transurethral resection and instillation of Mitomycin-C into the bladder. He does have a past history of prostate cancer and was treated with radiation therapy. Review of Systems Narrative: No fevers or chills Decreased hearing acuity. No vision change or dysphasia No diabetes or thyroid No shortness of breath, cough or hemoptysis No chest pain or palpitations Hx radiation proctitis. GERD. No hepatitis, ulcers, jaundice No seizures, strokes or peripheral neuropathy No gout PFSH All Active Problems Cellulitis (Acute) Anemia (Chronic) Abnormal head CT (Acute) SPENCER (nonalcoholic steatohepatitis) (Chronic) Radiation proctitis (Chronic) Coagulopathy (Chronic) Elevated INR (Acute) Chronic blood loss anemia (Chronic) Chronic radiation proctitis (Chronic) Anal stricture (Acute) Hematochezia (Acute) Cough (Acute) Urgency incontinence (Acute) Bladder cancer (Acute) Mixed hearing loss, bilateral (Acute) Thrombocytopenia (Chronic) Hypertension (Chronic) Medical History Fall Urinary incontinence Abnormal gait History of prostate cancer CKD (chronic kidney disease), stage III Restrictive lung disease 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) PFT impression from August 24, 2018 showed mild restrictive lung disease COPD (chronic obstructive pulmonary disease) GERD (gastroesophageal reflux disease) Otosclerosis of both ears Bronchospasm Community acquired pneumonia of both lungs Rales Listed as basilar rales in PCP chart Fever Acute blood loss anemia Acute urinary retention Hematuria Esophageal varices Carpal tunnel syndrome Cirrhosis of liver Other otosclerosis, bilateral Internal hemorrhoid Gross hematuria Prostate cancer Right carpal tunnel syndrome Surgical History History of ear surgery S/P endoscopic carpal tunnel release (09/09/18) Family History Mother No problems noted. Father Cardiovascular disease Brother No problems noted. 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 Do you feel safe at home: Yes Additional Social history: Live alone Meds Allergies and Home Medications Allergies Allergy/AdvReac Type Severity Reaction Status Date / Time ATUL Inhibitors AdvReac cough Verified 11/22/24 07:36 Home Medications ?Medication ?Instructions ?Recorded ?Confirmed ?Type magnesium oxide 250 mg PO DAILY AM 02/25/17 11/22/24 History calcium 600 mg (as 1 cap PO DAILY 09/03/18 11/22/24 History carbonate)-vitamin D3 5 mcg (200 unit) capsule (Calcium 600 + D(3)) albuterol sulfate 90 mcg/actuation 2 puff inhalation Q4H ##0 02/13/19 11/22/24 Rx aerosol inhaler (ProAir HFA) tiotropium bromide 2.5 2 puff inhalation DAILY 05/31/21 11/22/24 History mcg/actuation mist for inhalation (Spiriva Respimat) losartan 100 mg tablet 100 mg PO DAILY 10/08/23 11/22/24 History mirabegron 25 mg tablet,extended 25 mg PO DAILY 10/08/23 11/22/24 History release 24 hr (Myrbetriq) propranolol 80 mg capsule,24 80 mg PO DAILY 10/08/23 11/22/24 History hr,extended release omeprazole 20 mg capsule,delayed 40 mg (2 x 20 mg) PO DAILY #0 caps 10/10/23 11/22/24 Rx release acetaminophen 500 mg tablet 500 mg PO Q6H PRN 02/19/24 11/22/24 History (Tylenol Extra Strength) chlorthalidone 25 mg tablet 12.5 mg PO Q OTHER DAY 03/11/24 11/22/24 History cyanocobalamin (vitamin B-12) 500 1,000 mcg (2 x 500 mcg) PO DAILY 09/06/24 11/22/24 Rx mcg tablet (Vitamin B-12) #30 tabs thiamine mononitrate (vit B1) 100 100 mg PO DAILY #30 tabs 09/06/24 11/22/24 Rx mg tablet (Vitamin B-1 (mononitrate)) Exam Const General: cooperative Neck Neck: supple Resp Effort & Inspection: normal respiratory effort Auscultation: clear to auscultation bilaterally Cardio Rate: regular rate Rhythm: regular rhythm GI Palpation: soft and no masses Neuro General: patient alert, patient awake and patient oriented x3 Results Last Vital Signs Temp 36.7 C 11/22/24 07:20 Pulse 81 11/22/24 07:20 Resp 22 11/22/24 07:20 BP 178/62 H 11/22/24 07:20 Pulse Ox 98 11/22/24 07:20 Time Spent Time spent with Patient: <40 minutes Time was spent: other
[2024-11-22] MEDS: ceFAZolin 2 GM/50 ML BAG IVPB (09:19)
[2024-11-22] MEDS: Lidocaine 2% Jelly 11 ML SYR (09:39)
--- NOTE | 2024-11-22 09:41 | BLADDER_PTH ---
PATIENT: Marleny Martin LOC: [facility] U#:[id number] AGE/SX: 84/M ROOM: RE11/22/[address]: Lonnie Saxena MD : [id number] BED: DIS: 11/22/2024 SPEC #: [id number] RECD: 11/22/24 12:50 STATUS: ROMIE REQ #: [id number] ARAMIS: 11/22/24 09:[address]: Lonnie Saxena DEPT: Surgical Specimen RECD BY: Raissa Nair ENTERED: 11/22/24 12:51 SP TYPE: Bladder OTHR DR: Ulices Simpson Tissues: 1 - BLADDER BIOPSY Procedures: GROSS AND MICRO LEVEL 5 Comments: [id number]
--- NOTE | 2024-11-22 09:53 | W.PM.DSUDISC ---
Date of service: 11/22/24 Discharge Plan Disposition Patient Disposition: Home Discharge Details Reason For Visit: cystoscopy with transurethral resection of bladder Attending Provider: Lonnie Saxena Primary Care Provider: Ulices Simpson Home Meds and New Rx's Prescriptions: No Action chlorthalidone 25 mg tablet 12.5 mg PO Q OTHER DAY Patient Comments: Pt now takes 25mg tablet Q other day by mouth once a day 11/22/24 magnesium oxide 250 MG tablet 250 mg PO DAILY AM Spiriva Respimat 2.5 mcg/actuation mist 2 puff inhalation DAILY cyanocobalamin (vitamin B-12) [Vitamin B-12] 500 mcg Tablet 1,000 mcg PO DAILY Qty: 30 0RF thiamine mononitrate (vit B1) [Vitamin B-1 (mononitrate)] 100 mg Tablet 100 mg PO DAILY Qty: 30 0RF Calcium 600 + D(3) 600 mg calcium- 200 unit Capsule 1 cap PO DAILY albuterol sulfate [ProAir HFA] 8.5 GM HFA aerosol inhaler 2 puff Inhalation Q4H Qty: 0 0RF losartan 100 mg tablet 100 mg PO DAILY propranolol 80 mg capsule,extended release 24 hr 80 mg PO DAILY Patient Comments: Pt states he takes every other day; 11/22/24 mirabegron [Myrbetriq] 25 mg tablet extended release 24 hr 25 mg PO DAILY omeprazole 20 mg capsule,delayed release(DR/EC) 40 mg PO DAILY Qty: 0 0RF acetaminophen [Tylenol Extra Strength] 500 mg tablet 500 mg PO Q6H PRN Discharge Instructions Additional Instructions: followup 1 to 2 weeks for pathology result Discharge Orders Discharge Orders: Discharge Order (Routine); Ordered 11/22/24 Ordered By: Lonnie Saxena DS: Diagnosis Discharge Diagnosis (1) Bladder cancer: Status: Acute
--- NOTE | 2024-11-22 09:55 | W.PM.OP ---
Operative Note Operative Note PRE-OP DIAGNOSIS: Bladder cancer POST-OP DIAGNOSIS: same PROCEDURE: cystoscopy, transurethral resection of bladder tumor (less than 2 cm), instillation of Mitomycin c into bladder ANESTHESIA TYPE: Local By Surgeon and General:No Airway Refer to Anesthesia Record Implants: 16 turk[place] hough with 10 cc sterile water in balloon 40 mg Mitomycin C mixed in 40 mL dilutent instilled into bladder Indications: This is an 84-year-old gentleman who has a history of urothelial cell carcinoma of the bladder. On 1 occasion, he had involvement of the lamina propria. He was treated with an induction series of intravesical gemcitabine (BCG was not available). He had a recurrence but the recurrent tumor was low-grade and noninvasive. On surveillance cystoscopy, we again found a small papillary lesion within the bladder. He presents for repeat transurethral resection and we will plan on instilling a single dose of intravesical Mitomycin-C into the bladder. Findings: Small papillary lesion on posterior bladder wall (less than 2 cm) Procedure Description: The patient was given a dose of IV antibiotics and brought to the operating room on 11/22/2024. After successful induction of general anesthesia, he was placed in the dorsal lithotomy position. His genitalia was prepped and draped. 2% Xylocaine jelly was instilled into the urethra to act as a local anesthetic. A 24 [place] resectoscope sheath was passed through the urethra into the bladder. The visual obturator was utilized to inspect the urethra and bladder. The pendulous, bulbar and membranous urethra showed no strictured areas. The prostatic urethra showed changes consistent with his previous radiation therapy. The bladder neck was entered and the bladder mucosa was inspected. There was some pale mucosa consistent with his radiation. There was also a scar from previous TUR surgery. Adjacent to the scar on the posterior wall was a less than 2 cm papillary lesion consistent with a low-grade urothelial cell carcinoma. Transurethral resection of this area and fulguration of any adjacent erythematous mucosa was performed using an Streemio resectoscope. The resected tissue was evacuated and sent to pathology for permanent section. The resectoscope was removed. A 16 [place] Hough catheter was then passed through the urethra into the bladder. The catheter balloon was inflated with 10 cc of sterile water. The bladder was drained. We then instilled 40 mg of Mitomycin-C mixed in 40 mL of dilute through the catheter. The catheter was clamped to allow the Mitomycin-C to instill in the bladder. The patient was then taken to the recovery room in stable condition. Date of Procedure: 11/22/24
--- NOTE | 2024-11-22 10:58 | W.ANESPOSTOP ---
Postoperative Evaluation Date, Time and Location Date Performed: 11/22/24 Time Performed: 10:58 Patient Location: Day Surgery Unit Vital Signs Most Recent Imported Vital Signs: Most Recent Vital Signs Temp Pulse Resp BP Pulse Ox 36.6 C 72 16 132/81 97 11/22/24 10:14 11/22/24 10:11 11/22/24 10:11 11/22/24 10:11 11/22/24 10:11 Pain Score Most Recent Pain Score: Most Recent Pain Score Pain Level 0 11/22/24 10:14 Assessment Mental Status: Awake (Alert & Oriented to Patient Baseline) Airway and Respiratory Function: Patent airway with normal (patient baseline) respiratory exam Cardiovascular Function: Hemodynamically Stable Hydration Status: Adequately Hydrated Nausea & Vomiting: No Nausea or Vomiting Pain: Pt. Denies Any Pain Peripheral Nerve Block: Patient did not receive a nerve block
[2024-11-22] MEDS: Phenazopyridine 200 MG TAB PO (11:29)
== END 2024-11-22 12:15 | disposition home or self-care (01) ==
PROVIDERS: PCP Student in an Organized Health Care Education/Training Program; Visit Provider Urology
PROC: 0TBB8ZZ Excision of Bladder, Via Natural or Artificial Opening Endoscopic (ICD-10-PCS; CPT 52234; principal; 2024-11-22 09:00)
DX: C67.4 Malignant neoplasm of posterior wall of bladder (principal); D64.9 Anemia, unspecified; Z92.3 Personal history of irradiation; Z85.46 Personal history of malignant neoplasm of prostate
CPT/HCPCS: 52234; 51720; 88305; 88307; J0690; J1100; J2003; J2405; J2704; J9280

== ENCOUNTER 2025-01-03 15:57 | Emergency (ER) | payer OTHER, SELFPAY ==
--- NOTE | 2025-01-03 15:45 | RT.EKG_ITS ---
APPROVED REPORT Exam: Resting ECG Reason for Exam: sob Patient Location: E HR:80 bpm ECG Measurements Heart Rate 80 AXIS IA 174 P 40 QRSd 82 QRS 13 QT 354 T -22 QTc 409 Conclusion Sinus rhythm...normal P axis, V-rate 60- 99 Nonspecific T abnormalities, inferior leads...T <-0.10mV, II III aVF
[2025-01-03 15:57] VITALS: BP 174/51; PULSE 85; RESP 20; TEMP 37.1; O2SAT 99
--- NOTE | 2025-01-03 16:00 | DI.RAD_ITS ---
Exam(s) XR CHEST 2V PA LATERAL EXAM: XR CHEST 2V PA LATERAL CLINICAL HISTORY: fever, sob. TECHNIQUE: 2D digital imaging was performed. COMPARISON: CR XR CHEST 2V PA LATERAL from 09/03/[address] CHEST WO from 09/04/2024 FINDINGS: 2 views: Heart size upper normal. Mediastinum not widened. Again noted are finding of bilateral interstitial pulmonary fibrosis, seen on prior CT scan listed ab ove and as evident on prior chest x-ray of 09/03/2024. There are no new obvious infiltrates nor pleural effusions. No pulmonary edema. IMPRESSION: Bilateral pulmonary fibrosis. No obvious new pulmonary findings when compared to 09/03/2024. If cli nically indicated follow-up CT scan can be performed. DATA REPOSITORY: RADIATION DOSE DELIVERED:
[2025-01-03 16:01] VITALS: BP 174/51; PULSE 85; RESP 20; TEMP 37.1; O2SAT 99
[2025-01-03 16:17] LABS: Lactate 1.7 mmol/L (<or=2.0)
[2025-01-03 16:19] LABS: Absolute Basophil Count 0.02 10^3/uL (0.0-0.2); Absolute Eosinophil Count 0.13 10^3/uL (0.0-0.7); Absolute Lymphocyte Count 0.36 10^3/uL (1.2-3.4); Absolute Monocyte Count 0.22 10^3/uL (0.1-0.8); Absolute Neutrophil Count 1.29 10^3/uL (1.2-6.7); Eosinophils % 6.4 %; HCT 27.6 % (40.0-50.0); HGB 9.3 g/dL (13.5-17.5); Lymphocytes % 17.8 %; MCH 32.1 pg (27.0-33.0); MCHC 33.7 % (32.0-36.0); MCV 95 fL (80-95); MPV 11.5 fL (8.0-11.0); Monocytes % 10.9 %; Neutrophils % 63.9 %; RDW 13.3 % (11.8-14.1); RDW-SD 46.9 fL; WBC 2.02 10^3/uL (4.4-10.8)
[2025-01-03 16:27] LABS: Platelet Count 41 10^3/uL (130-400)
[2025-01-03 16:37] LABS: Bilirubin Negative (Negative); Blood Negative (Negative); Clarity Clear (Clear); Glucose Negative (Negative); Ketones Negative (Negative); Leukocyte Esterase Negative (Negative); Nitrite Negative (Negative); Urobilinogen 0.2 mg/dL (Up to 0.2); pH 5.5 (5-8)
[2025-01-03 17:03] LABS: ALT 28 U/L (16-63); AST 43 U/L (15-37); Alkaline Phosphatase 162 U/L (46-116); Anion Gap 7.4 mmol/L (3-11); BUN 21 mg/dL (7-18); Bilirubin, Total 0.82 mg/dL (0.2-1.0); CO2 20.6 mmol/L (21.0-32.0); CREATININE 1.4 mg/dL (0.70-1.30); Calcium 8.1 mg/dL (8.5-10.1); Chloride 110 mmol/L (98-107); Estimated GFR 50.18 (mL/min/1.73m2); Glucose 114 mg/dL (74-106); Magnesium 1.6 mg/dL (1.8-2.4); NT-proBNP 224 pg/mL (<300); Potassium 4.4 mmol/L (3.5-5.1); Sodium 138 mmol/L (136-145); Total Protein 7.2 g/dL (6.4-8.2); Troponin I 22 ng/L (<or=76)
[2025-01-03 17:06] LABS: COVID-19 PCR Negative (Negative); Influenza A PCR Negative (Negative); Influenza B PCR Negative (Negative); RSV PCR Negative (Negative)
[2025-01-03 17:13] LABS: Source NASOPHARYNX
[2025-01-03] MEDS: Albuterol/Ipratropium 3 ML UPD VIAL UPD (17:31)
[2025-01-03 18:09] LABS: INR 1.4 (0.9-1.1); Prothrombin Time 13.8 sec (9.1-11.1)
[2025-01-03 18:37] LABS: Troponin I 23 ng/L (<or=76)
--- NOTE | 2025-01-03 19:11 | ED.GENADUL_ITS ---
Discharge Plan Disposition Patient Disposition: Home Discharge Details Clinical Impression: Bronchitis, Anemia, Pulmonary fibrosis Primary Care Provider: Ulices Simpson ED Provider: Raissa Dennis Home Meds and New Rx's Prescriptions: New doxycycline hyclate 100 mg tablet 100 mg PO BID Qty: 10 0RF prednisone 20 mg tablet 40 mg PO ONCE Qty: 8 0RF Continued chlorthalidone 25 mg tablet 25 mg PO Q OTHER DAY Patient Comments: Pt now takes 25mg tablet Q other day by mouth once a day 11/22/24 magnesium oxide 250 MG tablet 500 mg PO DAILY AM Spiriva Respimat 2.5 mcg/actuation mist 2 puff inhalation DAILY ferrous sulfate 325 mg (65 mg iron) tablet 325 mg PO Q OTHER DAY cyanocobalamin (vitamin B-12) [Vitamin B-12] 500 mcg Tablet 1,000 mcg PO DAILY Qty: 30 0RF thiamine mononitrate (vit B1) [Vitamin B-1 (mononitrate)] 100 mg Tablet 100 mg PO DAILY Qty: 30 0RF solifenacin 5 mg tablet 5 mg PO DAILY docusate sodium [Colace] 100 mg capsule 100 mg PO DAILY albuterol sulfate 8.5 GM HFA aerosol inhaler 2 puff Inhalation Q4H PRN Patient Comments: Ventolin Calcium 600 + D(3) 600 mg calcium- 200 unit Capsule 1 cap PO DAILY losartan 100 mg tablet 100 mg PO DAILY mirabegron [Myrbetriq] 25 mg tablet extended release 24 hr 25 mg PO DAILY omeprazole 20 mg capsule,delayed release(DR/EC) 40 mg PO DAILY Qty: 0 0RF acetaminophen [Tylenol Extra Strength] 500 mg tablet 500 mg PO Q6H PRN Discharge Instructions Instructions: Bronchitis, Adult ED Additional Instructions: Please follow-up with your doctor in 48 to 72 hours for reassessment, you will need a CBC to check your anemia levels by the end of the week to be sure that they do not continue to fall Take the prednisone as prescribed Take the doxycycline as prescribed Use your rescue inhaler every 4 hours 2 puffs and your daily inhaler as prescribed please return earlier should you have worsening shortness of breath f ever chills, or should any new concerns arise Referrals: Ulices Simpson [Primary Care Provider] - HPI General Date/Time Provider Initiated Documentation: 01/03/25 15:58 . HPI Narrative: The patient is an 84-year-old male with a history of pulmonary fibrosis, hypertension, COPD, CKD, prostate cancer, iron deficiency anemia, and cirrhosis of the liver with SPENCER. He presents with a report of feeling unwell, coughing, and febrile with chills for the past several days. He had a fever of 101 upon EMS arrival, which was managed with Tylenol. He does not report significant shortness of breath but notes it has been mildly worse, predominantly with ambulation. He is alert and oriented, pleasant, and speaking in complete sentences. Related Data Home Medications ?Medication ?Instructions ?Recorded ?Confirmed magnesium oxide 500 mg PO DAILY AM 02/25/17 01/03/25 calcium 600 mg (as 1 cap PO DAILY 09/03/18 01/03/25 carbonate)-vitamin D3 5 mcg (200 unit) capsule (Calcium 600 + D(3)) tiotropium bromide 2.5 2 puff inhalation DAILY 05/31/21 01/03/25 mcg/actuation mist for inhalation (Spiriva Respimat) losartan 100 mg tablet 100 mg PO DAILY 10/08/23 01/03/25 mirabegron 25 mg tablet,extended 25 mg PO DAILY 10/08/23 01/03/25 release 24 hr (Myrbetriq) omeprazole 20 mg capsule,delayed 40 mg (2 x 20 mg) PO DAILY #0 caps 10/10/23 01/03/25 release acetaminophen 500 mg tablet 500 mg PO Q6H PRN 02/19/24 01/03/25 (Tylenol Extra Strength) chlorthalidone 25 mg tablet 25 mg PO Q OTHER DAY 03/11/24 01/03/25 cyanocobalamin (vitamin B-12) 500 1,000 mcg (2 x 500 mcg) PO DAILY 09/06/24 01/03/25 mcg tablet (Vitamin B-12) #30 tabs thiamine mononitrate (vit B1) 100 100 mg PO DAILY #30 tabs 09/06/24 01/03/25 mg tablet (Vitamin B-1 (mononitrate)) albuterol sulfate 90 mcg/actuation 2 puff inhalation Q4H PRN 11/23/24 01/03/25 aerosol inhaler docusate sodium 100 mg capsule 100 mg PO DAILY 11/23/24 01/03/25 (Colace) solifenacin 5 mg tablet 5 mg PO DAILY 11/23/24 01/03/25 ferrous sulfate 325 mg (65 mg 325 mg PO Q OTHER DAY 12/06/24 01/03/25 iron) tablet doxycycline hyclate 100 mg tablet 100 mg PO BID #10 tabs 01/03/25 prednisone 20 mg tablet 40 mg (2 x 20 mg) PO ONCE #8 tabs 01/03/25 Previous Rx's ?Medication ?Instructions ?Recorded omeprazole 20 mg capsule,delayed 40 mg (2 x 20 mg) PO DAILY #0 caps 10/10/23 release cyanocobalamin (vitamin B-12) 500 1,000 mcg (2 x 500 mcg) PO DAILY 09/06/24 mcg tablet (Vitamin B-12) #30 tabs thiamine mononitrate (vit B1) 100 100 mg PO DAILY #30 tabs 09/06/24 mg tablet (Vitamin B-1 (mononitrate)) doxycycline hyclate 100 mg tablet 100 mg PO BID #10 tabs 01/03/25 prednisone 20 mg tablet 40 mg (2 x 20 mg) PO ONCE #8 tabs 01/03/25 Allergies Allergy/AdvReac Type Severity Reaction Status Date / Time ATUL Inhibitors AdvReac cough Verified 01/03/25 16:01 General Stated Complaint: RespSymp MANGO: 4 Exam Narrative Exam Narrative: General Appearance: The patient is alert and oriented, pleasant, and speaking in complete sentences. He is in no acute distress. Vital signs: Vitals remained stable. Temperature was 101 on arrival. HEENT: Within normal limits. Respiratory: Crackles are present at the bases of the lungs, along with mild tachypnea. Cardiovascular: The heart has a regular rate and rhythm. Gastrointestinal: There is no abdominal tenderness. Extremities: There is no peripheral edema. Skin: Warm and dry, no rash. Neurological: Normal. Course Vital Signs Vital signs: Vital Signs Temperature 37.1 C 01/03/25 15:57 Pulse 85 01/03/25 15:57 Respiratory Rate 20 01/03/25 15:57 Blood Pressure 174/51 H 01/03/25 15:57 Pulse Oximetry 99 01/03/25 15:57 Temperature 37.1 C 01/03/25 16:01 Pulse 85 01/03/25 16:01 Respiratory Rate 20 01/03/25 16:01 Respiratory Effort Short of Breath 01/03/25 16:20 Respiratory Depth Normal 01/03/25 16:20 Blood Pressure 174/51 H 01/03/25 16:01 Pulse Oximetry 99 01/03/25 16:01 Oxygen Delivery Method Room Air 01/03/25 16:01 Oxygen Flow Rate 0 01/03/25 16:01 Pain Level 0 01/03/25 16:01 Lab/Test Results Lab/Test Results: 01/03/25 17:30 Blood Blood Culture - Pending 01/03/25 17:20 Blood Blood Culture - Pending Laboratory Tests Range/Units 01/03/25 01/03/25 01/03/25 16:08 16:20 16:27 WBC (4.4-10.8) 10^3/uL 2.02 L RBC (4.36-5.78) 10^6/uL 2.90 L Hgb (13.5-17.5) g/dL 9.3 L Hct (40.0-50.0) % 27.6 L MCV (80-95) fL 95 MCH (27.0-33.0) pg 32.1 MCHC (32.0-36.0) % 33.7 RDW (11.8-14.1) % 13.3 Plt Count (130-400) 10^3/uL 41 L MPV (8.0-11.0) fL 11.5 H Immature Gran % % 0.0 Neutrophils % % 63.9 Lymphocytes % % 17.8 Monocytes % % 10.9 Eosinophils % % 6.4 Basophils % % 1.0 Nucleated RBC % (0.0-0.3) % 0.0 Absolute Neutrophils (1.2-6.7) 10^3/uL 1.29 Absolute Lymphocytes (1.2-3.4) 10^3/uL 0.36 L Absolute Monocytes (0.1-0.8) 10^3/uL 0.22 Absolute Eosinophils (0.0-0.7) 10^3/uL 0.13 Absolute Basophils (0.0-0.2) 10^3/uL 0.02 PT (9.1-11.1) sec INR (0.9-1.1) VBG Lactate (<or=2.0) mmol/L 1.7 Sodium (136-145) mmol/L 138 Potassium (3.5-5.1) mmol/L 4.4 Chloride (98-107) mmol/L 110 H Carbon Dioxide (21.0-32.0) mmol/L 20.6 L Anion Gap (3-11) mmol/L 7.4 BUN (7-18) mg/dL 21 H Creatinine (0.70-1.30) mg/dL 1.4 H Est GFR (CKD-EPI 2020) (mL/min/1.73m2) 50.18 Glucose (74-106) mg/dL 114 H Calcium (8.5-10.1) mg/dL 8.1 L Magnesium (1.8-2.4) mg/dL 1.6 L Total Bilirubin (0.2-1.0) mg/dL 0.82 AST (15-37) U/L 43 H ALT (16-63) U/L 28 Alkaline Phosphatase (46-116) U/L 162 H Troponin I (<or=76) ng/L 22 NT-Pro-B Natriuret Pep (<300) pg/mL 224 Total Protein (6.4-8.2) g/dL 7.2 Albumin (3.4-5.0) g/dL 2.0 L Urine Color (Yellow) Yellow Urine Clarity (Clear) Clear Urine pH (5-8) 5.5 Ur Specific [place] (1.005-1.025) 1.020 Urine Protein (Neg-Trace) mg/dL Negative Urine Ketones (Negative) mg/dL Negative Urine Blood (Negative) Negative Urine Nitrite (Negative) Negative Urine Bilirubin (Negative) Negative Urine Urobilinogen (Up to 0.2) mg/dL 0.2 Ur Leukocyte Esterase (Negative) Negative Urine Glucose (Negative) mg/dL Negative COVID-19 Source NASOPHARYNX SARS-CoV-2 (PCR) (Negative) Negative Influenza Type A (PCR) (Negative) Negative Influenza Type B (PCR) (Negative) Negative RSV (PCR) (Negative) Negative Range/Units 01/03/25 01/03/25 17:25 17:43 WBC (4.4-10.8) 10^3/uL RBC (4.36-5.78) 10^6/uL Hgb (13.5-17.5) g/dL Hct (40.0-50.0) % MCV (80-95) fL MCH (27.0-33.0) pg MCHC (32.0-36.0) % RDW (11.8-14.1) % Plt Count (130-400) 10^3/uL MPV (8.0-11.0) fL Immature Gran % % Neutrophils % % Lymphocytes % % Monocytes % % Eosinophils % % Basophils % % Nucleated RBC % (0.0-0.3) % Absolute Neutrophils (1.2-6.7) 10^3/uL Absolute Lymphocytes (1.2-3.4) 10^3/uL Absolute Monocytes (0.1-0.8) 10^3/uL Absolute Eosinophils (0.0-0.7) 10^3/uL Absolute Basophils (0.0-0.2) 10^3/uL PT (9.1-11.1) sec 13.8 H INR (0.9-1.1) 1.4 H VBG Lactate (<or=2.0) mmol/L Sodium (136-145) mmol/L Potassium (3.5-5.1) mmol/L Chloride (98-107) mmol/L Carbon Dioxide (21.0-32.0) mmol/L Anion Gap (3-11) mmol/L BUN (7-18) mg/dL Creatinine (0.70-1.30) mg/dL Est GFR (CKD-EPI 2020) (mL/min/1.73m2) Glucose (74-106) mg/dL Calcium (8.5-10.1) mg/dL Magnesium (1.8-2.4) mg/dL Total Bilirubin (0.2-1.0) mg/dL AST (15-37) U/L ALT (16-63) U/L Alkaline Phosphatase (46-116) U/L Troponin I (<or=76) ng/L 23 NT-Pro-B Natriuret Pep (<300) pg/mL Total Protein (6.4-8.2) g/dL Albumin (3.4-5.0) g/dL Urine Color (Yellow) Urine Clarity (Clear) Urine pH (5-8) Ur Specific [place] (1.005-1.025) Urine Protein (Neg-Trace) mg/dL Urine Ketones (Negative) mg/dL Urine Blood (Negative) Urine Nitrite (Negative) Urine Bilirubin (Negative) Urine Urobilinogen (Up to 0.2) mg/dL Ur Leukocyte Esterase (Negative) Urine Glucose (Negative) mg/dL COVID-19 Source SARS-CoV-2 (PCR) (Negative) Influenza Type A (PCR) (Negative) Influenza Type B (PCR) (Negative) RSV (PCR) (Negative) Medical Decision Making Laboratory Studies Hemoglobin is 9.3. White blood cell count of 2 decreased from 3. Platelet count of 41,000, baseline thrombocytopenia when compared to prior. Creatinine of 1.4 actually improved from previous in patient's prior of 2. Magnesium of 1.6. Repeat troponin, initial troponin are unchanged 21 and 22 respectively. Imaging Chest x-ray shows evidence of pulmonary fibrosis without obvious superimposed infection. Testing Urinalysis does not show evidence of infection. Guaiac test was negative. Initial Assessment: 84-year-old male with history of pulmonary fibrosis, hypertension, COPD, CKD, prostate cancer, iron deficiency anemia, cirrhosis of liver with SPENCER presents with feeling unwell, coughing, and febrile with chills for the past several days. Fever upon EMS arrival at 101, managed with Tylenol. Denies significant shortness of breath, mildly worse with ambulation. Alert and oriented, speaking in complete sentences, crackles at lung bases, mild tachypnea, no peripheral edema, no abdominal tenderness. Cardiac rate and rhythm regular. Baseline anemia around 10, currently 9.3. Denies blood in stool. White blood cell count of 2, decreased from 3. Platelet count of 41,000, baseline thrombocytopenia. Creatinine of 1.4, improved from previous 2. Mag of 1.6. ED Course: - Urinalysis does not show evidence of infection. - Pending flu, Covid, and RSV tests. - Chest x-ray shows evidence of pulmonary fibrosis without obvious superimposed infection. - Repeat troponin, initial troponin unchanged at 21 and 22 respectively. - Patient in no acute distress, not hypoxic, comfortable for discharge home. - Treatment for bronchitis with prednisone and doxycycline. - Guaiac test negative for visible blood. - Vitals remained stable. I also considered pulmonary embolism however given patient oxygen 99% no tachycardia and no significant respiratory distress low suspicion clinically Final Assessment: Patient presented with symptoms of bronchitis and was treated with prednisone and doxycycline. Anemia and thrombocytopenia were noted, with plans for repeat CBC and close outpatient follow-up. Pulmonary fibrosis was confirmed via chest x-ray without superimposed infection. Patient was stable and comfortable for discharge. Clinical Impression: - Bronchitis - Anemia - Thrombocytopenia - Pulmonary Fibrosis Disposition: - Discharge - Follow-Up: CBC recheck this week, follow-up in 2 to 3 days. Patient Education: Return precautions reviewed, patient expressed understanding. MDM Components Evaluation: - Number of Differential Diagnoses or Management Options: Bronchitis, Anemia, Thrombocytopenia, Pulmonary Fibrosis - Amount and Complexity of Data Reviewed: Urinalysis, flu/Covid/RSV tests, chest x-ray, troponin levels, guaiac test - Risk of Complication and Morbidity or Mortality: Moderate risk due to multiple comorbidities and baseline conditions. Quality:SDOH Health Related Social Needs: Health related social needs feeling lonely/isolated (Z 60.8) PFSH All Active Problems (Updated 01/03/25 @ 19:04 by NAEEM Herrera) Pulmonary fibrosis (Acute) Anemia (Chronic) Bronchitis (Acute) Cellulitis (Acute) Anemia (Chronic) Abnormal head CT (Acute) SPENCER (nonalcoholic steatohepatitis) (Chronic) Radiation proctitis (Chronic) Coagulopathy (Chronic) Elevated INR (Acute) Chronic blood loss anemia (Chronic) Chronic radiation proctitis (Chronic) Anal stricture (Acute) Hematochezia (Acute) Cough (Acute) Urgency incontinence (Acute) Bladder cancer (Acute) Mixed hearing loss, bilateral (Acute) Thrombocytopenia (Chronic) Hypertension (Chronic) Medical History Fall Urinary incontinence Abnormal gait History of prostate cancer CKD (chronic kidney disease), stage III Restrictive lung disease 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) PFT impression from August 24, 2018 showed mild restrictive lung disease COPD (chronic obstructive pulmonary disease) GERD (gastroesophageal reflux disease) Otosclerosis of both ears Bronchospasm Community acquired pneumonia of both lungs Rales Listed as basilar rales in PCP chart Fever Acute blood loss anemia Acute urinary retention Hematuria Esophageal varices Carpal tunnel syndrome Cirrhosis of liver Other otosclerosis, bilateral Internal hemorrhoid Gross hematuria Prostate cancer Right carpal tunnel syndrome Surgical History History of ear surgery S/P endoscopic carpal tunnel release (09/09/18) Family History Mother No problems noted. Father Cardiovascular disease Brother No problems noted. 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
[2025-01-03] MEDS: predniSONE 20 MG TAB 40 MG PO (19:19)
[2025-01-03] MEDS: Doxycycline Hyclate 100 MG, 2 CAPS/BTL PO (19:20)
[2025-01-03 19:30] VITALS: BP 151/68; PULSE 84; RESP 16; O2SAT 98
== END 2025-01-03 19:31 | disposition home or self-care (01) ==
PROVIDERS: Emergency Provider Physician Assistant; PCP Student in an Organized Health Care Education/Training Program
DX: J40 Bronchitis, not specified as acute or chronic (principal); D69.6 Thrombocytopenia, unspecified; D50.9 Iron deficiency anemia, unspecified; J84.10 Pulmonary fibrosis, unspecified; K74.69 Other cirrhosis of liver; I12.9 Hypertensive chronic kidney disease with stage 1 through stage 4 chronic kidney disease, or unspecified chronic kidney disease; N18.30 Chronic kidney disease, stage 3 unspecified; J44.9 Chronic obstructive pulmonary disease, unspecified
CPT/HCPCS: 36415; 80053; 87040; 87637; 93005; 94640; 99285; 71046; 81003; 83605; 83735; 83880; 84484; 85025; 85610; 93010; 99284; J7512; J7620

== ENCOUNTER 2025-01-06 12:42 | Outpatient (REF) | payer MEDICARE, OTHER, SELFPAY ==
[2025-01-06 14:58] LABS: Abs Immature Grans 0.03 10^3/uL (0.0-0.06); Absolute Basophil Count 0.01 10^3/uL (0.0-0.2); Absolute Lymphocyte Count 0.26 10^3/uL (1.2-3.4); Absolute Monocyte Count 0.14 10^3/uL (0.1-0.8); Absolute Neutrophil Count 3.85 10^3/uL (1.2-6.7); Basophils % 0.2 %; HCT 31.9 % (40.0-50.0); HGB 10.6 g/dL (13.5-17.5); Immature Grans % 0.7 %; Lymphocytes % 6.1 %; MCH 31.7 pg (27.0-33.0); MCHC 33.2 % (32.0-36.0); MCV 96 fL (80-95); MPV 12.9 fL (8.0-11.0); Monocytes % 3.3 %; Neutrophils % 89.7 %; RBC 3.34 10^6/uL (4.36-5.78); RDW 13.5 % (11.8-14.1); RDW-SD 47.8 fL; WBC 4.29 10^3/uL (4.4-10.8)
[2025-01-06 15:15] LABS: Platelet Count 47 10^3/uL (130-400)
[2025-01-06 15:53] LABS: Iron 149 ug/dL (65-175); Total Iron Binding Capacity 195 ug/dL (250-450); Transferrin Sat 76 % (20-55)
[2025-01-06 16:52] LABS: Ferritin 124 ng/mL (26-388)
== END 2025-01-06 12:43 | disposition home or self-care (01) ==
LOC: NCHCN 12:42
PROVIDERS: PCP Student in an Organized Health Care Education/Training Program; Visit Provider Student in an Organized Health Care Education/Training Program
DX: D64.9 Anemia, unspecified (principal)
CPT/HCPCS: 82728; 83540; 83550; 85025

== ENCOUNTER 2025-01-17 12:40 | Outpatient (REF) | payer OTHER, SELFPAY ==
[2025-01-20 10:23] LABS: Fecal Immunochemical Test Negative (Negative)
== END 2025-01-17 12:41 | disposition home or self-care (01) ==
LOC: NCHCN 12:40
PROVIDERS: PCP Student in an Organized Health Care Education/Training Program; Visit Provider Student in an Organized Health Care Education/Training Program
DX: K92.1 Melena (principal)
CPT/HCPCS: 82274

== ENCOUNTER → 2025-04-28 08:27 | Outpatient (BNVA) | payer MEDICARE, OTHER, SELFPAY | PROVIDERS: PCP Student in an Organized Health Care Education/Training Program; Referring Provider Student in an Organized Health Care Education/Training Program; Visit Provider Urology | DX: C67.9 Malignant neoplasm of bladder, unspecified (principal); C61 Malignant neoplasm of prostate | CPT/HCPCS: 81002; 52000 ==

== ENCOUNTER 2025-05-16 06:15 | Day surgery (SDC) | payer MEDICARE, SELFPAY ==
[2025-05-16] VITALS (18 sets, daily range): BP systolic 103–148; BP diastolic 46–94; PULSE 66–80; RESP 13–24; TEMP 36.1–36.7; O2SAT 98–99; BMI 26.1
--- NOTE | 2025-05-16 06:55 | W.PM.HP.N ---
Date of service: 05/16/25 Time of Service: 06:55 Assessment and Plan Assessment and plan (1) Bladder cancer: Status: Acute Assessment and plan: We will plan to resect the visible abnormality in his bladder. We will go ahead and instill Mitomycin-C into the bladder to try to prevent frequent recurrences History of Present Illness History of Present Illness Chief Complaint: Bladder Cancer Narrative: This is an 84-year-old gentleman who has a history of urothelial cell carcinoma of the bladder. When we identified involvement of the lamina propria, he was treated with an induction series of intravesical gemcitabine. We identified some papillary lesions on follow-up cystoscopy. These lesions were low-grade, noninvasive urothelial cell carcinoma when they were resected. At his last surveillance cystoscopy, we found a small papillary lesion just within the bladder neck. He presents now for transurethral resection. Since his most recent tumors have been low-grade and noninvasive, we will plan to instill Mitomycin-C into the bladder as well. He has no current gross hematuria. Review of Systems Narrative: No fevers or chills Decreased hearing acuity. No vision change or dysphasia No diabetes or thyroid COPD. No hemoptysis No chest pain or palpitations Blood from rectum/radiation proctitis. No nausea, vomiting, hepatitis, ulcers, jaundice No seizures, strokes or peripheral neuropathy No gout PFSH All Active Problems Otitis externa of left ear (Acute) Cellulitis (Acute) Anemia (Chronic) Abnormal head CT (Acute) SPENCER (nonalcoholic steatohepatitis) (Chronic) Radiation proctitis (Chronic) Coagulopathy (Chronic) Elevated INR (Acute) Chronic blood loss anemia (Chronic) Chronic radiation proctitis (Chronic) Anal stricture (Acute) Hematochezia (Acute) Cough (Acute) Urgency incontinence (Acute) Bladder cancer (Acute) Mixed hearing loss, bilateral (Acute) Thrombocytopenia (Chronic) Hypertension (Chronic) Medical History Fall Urinary incontinence Abnormal gait History of prostate cancer CKD (chronic kidney disease), stage III Restrictive lung disease 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) PFT impression from August 24, 2018 showed mild restrictive lung disease COPD (chronic obstructive pulmonary disease) GERD (gastroesophageal reflux disease) Otosclerosis of both ears Bronchospasm Community acquired pneumonia of both lungs Rales Listed as basilar rales in PCP chart Fever Acute blood loss anemia Acute urinary retention Hematuria Esophageal varices Carpal tunnel syndrome Cirrhosis of liver Other otosclerosis, bilateral Internal hemorrhoid Gross hematuria Prostate cancer Right carpal tunnel syndrome Surgical History History of ear surgery S/P endoscopic carpal tunnel release (09/09/18) Family History Mother No problems noted. Father Cardiovascular disease Brother No problems noted. 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 Do you feel safe at home: Yes Additional Social history: Live alone Meds Allergies and Home Medications Allergies Allergy/AdvReac Type Severity Reaction Status Date / Time ATUL Inhibitors AdvReac cough Verified 05/16/25 06:43 Home Medications ?Medication ?Instructions ?Recorded ?Confirmed ?Type magnesium oxide 500 mg PO DAILY AM 02/25/17 05/16/25 History calcium 600 mg (as 1 cap PO DAILY 09/03/18 05/16/25 History carbonate)-vitamin D3 5 mcg (200 unit) capsule (Calcium 600 + D(3)) tiotropium bromide 2.5 2 puff inhalation DAILY 05/31/21 05/16/25 History mcg/actuation mist for inhalation (Spiriva Respimat) losartan 100 mg tablet 100 mg PO DAILY 10/08/23 05/16/25 History mirabegron 25 mg tablet,extended 25 mg PO DAILY 10/08/23 05/16/25 History release 24 hr (Myrbetriq) omeprazole 20 mg capsule,delayed 40 mg (2 x 20 mg) PO DAILY #0 caps 10/10/23 05/16/25 Rx release acetaminophen 500 mg tablet 500 mg PO Q6H PRN 02/19/24 05/16/25 History (Tylenol Extra Strength) chlorthalidone 25 mg tablet 25 mg PO Q OTHER DAY 03/11/24 05/16/25 History cyanocobalamin (vitamin B-12) 500 1,000 mcg (2 x 500 mcg) PO DAILY 09/06/24 05/16/25 Rx mcg tablet (Vitamin B-12) #30 tabs thiamine mononitrate (vit B1) 100 100 mg PO DAILY #30 tabs 09/06/24 05/16/25 Rx mg tablet (Vitamin B-1 (mononitrate)) albuterol sulfate 90 mcg/actuation 2 puff inhalation Q4H PRN 11/23/24 05/16/25 History aerosol inhaler docusate sodium 100 mg capsule 100 mg PO DAILY 11/23/24 05/16/25 History (Colace) ferrous sulfate 325 mg (65 mg 325 mg PO Q OTHER DAY 12/06/24 05/16/25 History iron) tablet Exam Narrative Exam Narrative: He is a pleasant older gentleman in no obvious distress His vital signs are documented elsewhere His chest wall motion is normal. His lungs are clear Cardiac exam shows a regular rate and rhythm His abdomen is soft with no mass He is awake and alert Results Last Vital Signs Temp 36.7 C 05/16/25 06:15 Pulse 80 05/16/25 06:15 Resp 18 05/16/25 06:15 BP 147/60 H 05/16/25 06:15 Pulse Ox 98 05/16/25 06:15 Time Spent Time spent with Patient: <40 minutes Time was spent: other
[2025-05-16] MEDS: Lactated Ringers 1,000 ML 80 ML IV (06:57)
--- NOTE | 2025-05-16 07:08 | W.ANESPRE ---
General Info Date of Service Date Performed: 05/16/25 Height: 5 ft 5 in Weight: 71.1 kg Body Mass Index (BMI): 26.1 Surgical Procedure: Operation Date: 05/16/25 07:40 Proposed Procedure Side Surgeon p Cystoscopy w/Transurethral Resection Bladder Tumor Lonnie Saxena MD Meds Allergies and Home Medications Allergies Allergy/AdvReac Type Severity Reaction Status Date / Time ATUL Inhibitors AdvReac cough Verified 05/16/25 06:43 Home Medication ?Medication ?Instructions ?Recorded magnesium oxide 500 mg PO DAILY AM 02/25/17 calcium 600 mg (as 1 cap PO DAILY 09/03/18 carbonate)-vitamin D3 5 mcg (200 unit) capsule (Calcium 600 + D(3)) tiotropium bromide 2.5 2 puff inhalation DAILY 05/31/21 mcg/actuation mist for inhalation (Spiriva Respimat) losartan 100 mg tablet 100 mg PO DAILY 10/08/23 mirabegron 25 mg tablet,extended 25 mg PO DAILY 10/08/23 release 24 hr (Myrbetriq) omeprazole 20 mg capsule,delayed 40 mg (2 x 20 mg) PO DAILY #0 caps 10/10/23 release acetaminophen 500 mg tablet 500 mg PO Q6H PRN 02/19/24 (Tylenol Extra Strength) chlorthalidone 25 mg tablet 25 mg PO Q OTHER DAY 03/11/24 cyanocobalamin (vitamin B-12) 500 1,000 mcg (2 x 500 mcg) PO DAILY 09/06/24 mcg tablet (Vitamin B-12) #30 tabs thiamine mononitrate (vit B1) 100 100 mg PO DAILY #30 tabs 09/06/24 mg tablet (Vitamin B-1 (mononitrate)) albuterol sulfate 90 mcg/actuation 2 puff inhalation Q4H PRN 11/23/24 aerosol inhaler docusate sodium 100 mg capsule 100 mg PO DAILY 11/23/24 (Colace) ferrous sulfate 325 mg (65 mg 325 mg PO Q OTHER DAY 12/06/24 iron) tablet Current Visit Medications: Current Medications Generic Name Dose Route Start Last Admin Trade Name Freq PRN Reason Stop Dose Admin Ringer's Solution 1,000 mls @ 80 mls/hr 05/16/25 06:00 05/16/25 06:57 IV 05/16/25 23:59 80 mls/hr INFUSION MAXIMUS Administration Cefazolin Sodium/Dextrose 2 gm in 50 mls @ 100 mls/hr 05/16/25 06:00 Ancef Duplex IVPB 05/16/25 23:59 PREOP [facility] IV Miscellaneous Supplies 1 each 05/16/25 06:00 Iv Access IV 05/16/25 23:59 DIRECTED MAXIMUS Mitomycin 40 mg 05/16/25 06:00 Mitomycin 40 Mg Vial BLADIN 05/16/25 23:59 DIRECTED MAXIMUS Sodium Chloride 0 ml 05/16/25 06:00 Normal Saline Flush 10 Ml Syr IV 05/16/25 23:59 PRN PRN Sodium Chloride 0 ml 05/16/25 06:00 Normal Saline 10 Ml Vial IJ 05/16/25 23:59 DIRECTED PRN Sterile Water 0 ml 05/16/25 06:00 Water,Injection,Sterile 10 Ml Vial IJ 05/16/25 23:59 DIRECTED PRN PFSH Active Problems Active Problems: Problem Status Onset Code Otitis externa of left ear Acute H60.92 Cellulitis Acute L03.90 Anemia Chronic D64.[address] Acute R93.0 SPENCER (nonalcoholic steatohepatitis) Chronic K75.81 Radiation proctitis Chronic K62.7 Coagulopathy Chronic D68.9 Bright red blood per rectum Resolved K62.5 Elevated INR Acute R79.1 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 Chronic radiation proctitis Chronic K62.7 Anal stricture Acute K62.4 Hematochezia Acute K92.1 Cough Acute R05.9 Urgency incontinence Acute N39.41 Bladder cancer Acute C67.9 Mixed hearing loss, bilateral Acute H90.6 S/P radiation therapy Resolved Z92.3 Thrombocytopenia Chronic D69.6 Hypertension Chronic I10 Medical History Medical History Fall Urinary incontinence Abnormal gait History of prostate cancer CKD (chronic kidney disease), stage III Restrictive lung disease 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) PFT impression from August 24, 2018 showed mild restrictive lung disease COPD (chronic obstructive pulmonary disease) GERD (gastroesophageal reflux disease) Otosclerosis of both ears Bronchospasm Community acquired pneumonia of both lungs Rales Listed as basilar rales in PCP chart Fever Acute blood loss anemia Acute urinary retention Hematuria Esophageal varices Carpal tunnel syndrome Cirrhosis of liver Other otosclerosis, bilateral Internal hemorrhoid Gross hematuria Prostate cancer Right carpal tunnel syndrome Surgical History Surgical History History of ear surgery S/P endoscopic carpal tunnel release (09/09/18) Tobacco Smoking/Tobacco Use Status: Never Alcohol Alcohol Intake: former Year quit: 1994 Substance Use Substance use: Never Substance use type: does not use Vital Signs and Lab Results Vital Signs Most Recent Vital Signs in EMR: Most Recent Vital Signs Temp Pulse Resp BP Pulse Ox 36.7 C 80 18 147/60 H 98 05/16/25 06:15 05/16/25 06:15 05/16/25 06:15 05/16/25 06:15 05/16/25 06:15 Imaging and Studies Imaging and Studies Study information below may be from another EMR and interpreted by another provider. Please see original notes in EMR for more complete details. EKG Summary: 12/08: sinus rhythm Echocardiogram Summary: 10/10/23: EF 58%, no significant valvular lesions Pulmonary Function Summary: 09/03: mild restrictive disease Anesthesia Assessment and Plan Anesthesia History Personal History: No History of Anesthesia Complications Family History: No Family History of Anesthesia Complications Exercise Tolerance Exercise Tolerance: Metabolic Equivalents>4 (difficult to assess in setting of COPD ) Pertinent Negatives Pertinent Negatives: No Symptoms of GERD, No Major Cardiovascular Symptoms or Complaints and No History of CVA/TIA Cardiac & Pulmonary Exam Cardiac Exam: Normal S1/S2 Heart Sounds Pulmonary Exam: Clear Bilateral Breath Sounds Implantable Cardiac Device Does patient have a Pacemaker or an ICD?: No Airway Exam Known Difficult Airway: No Mallampati Class: 2 Mouth Opening: Normal (> 3cm) Thyromental Distance: Greater than 3 cm Neck Range of Motion: Limited ROM Neck Circumference: Thick Teeth Condition: Removable Dentures/Plates Upper and Edentulous ASA Classification ASA Score: ASA 3 Emergency Case?: No NPO Status NPO Status: NPO Clears >2 hours, Solids >8 hours Anesthesia Plan Resuscitation Status: Full Code Anesthesia Technique: General Anesthesia Airway Planned: Natural Airway Monitors Used: Standard Monitors
[2025-05-16] MEDS: ceFAZolin 2 GM/50 ML BAG IVPB (07:45)
--- NOTE | 2025-05-16 08:08 | BLADDER_PTH ---
PATIENT: Marleny Martin LOC: [facility] U#:[id number] AGE/SX: 84/M ROOM: RE05/16/[address]: Lonnie Saxena MD : [id number] BED: DIS: 05/16/2025 SPEC #: [id number] RECD: 05/16/25 13:00 STATUS: ROMIE REQ #: [id number] ARAMIS: 05/16/25 08:[address]: Lonnie Saxena DEPT: Surgical Specimen RECD BY: Raissa Nair ENTERED: 05/16/25 13:01 SP TYPE: Bladder OTHR DR: Ulices Simpson Tissues: 1 - BLADDER BIOPSY Procedures: GROSS AND MICRO LEVEL 4 Comments: [id number]
--- NOTE | 2025-05-16 08:41 | W.PM.DSUDISC ---
Date of service: 05/16/25 Discharge Plan Disposition Patient Disposition: Home Condition: Stable Discharge Details Reason For Visit: transurethral resection of bladder tumor Attending Provider: Lonnie Saxena Primary Care Provider: Ulices Simpson Home Meds and New Rx's Prescriptions: No Action chlorthalidone 25 mg tablet 25 mg PO Q OTHER DAY Patient Comments: Pt now takes 25mg tablet Q other day by mouth once a day 11/22/24 magnesium oxide 250 MG tablet 500 mg PO DAILY AM Spiriva Respimat 2.5 mcg/actuation mist 2 puff inhalation DAILY ferrous sulfate 325 mg (65 mg iron) tablet 325 mg PO Q OTHER DAY cyanocobalamin (vitamin B-12) [Vitamin B-12] 500 mcg Tablet 1,000 mcg PO DAILY Qty: 30 0RF thiamine mononitrate (vit B1) [Vitamin B-1 (mononitrate)] 100 mg Tablet 100 mg PO DAILY Qty: 30 0RF docusate sodium [Colace] 100 mg capsule 100 mg PO DAILY albuterol sulfate 8.5 GM HFA aerosol inhaler 2 puff Inhalation Q4H PRN Patient Comments: Ventolin calcium carbonate-vitamin D3 [Calcium 600 + D(3)] 600 mg calcium- 200 unit Capsule 1 cap PO DAILY losartan 100 mg tablet 100 mg PO DAILY mirabegron [Myrbetriq] 25 mg tablet extended release 24 hr 25 mg PO DAILY omeprazole 20 mg capsule,delayed release(DR/EC) 40 mg PO DAILY Qty: 0 0RF acetaminophen [Tylenol Extra Strength] 500 mg tablet 500 mg PO Q6H PRN Discharge Instructions Additional Instructions: Follow-up in 2 weeks to review the surgical pathology Activity:: May return to work on 05/18/2025 Shower/Bathe:: 24 hours Diet:: As Tolerated Discharge Orders Discharge Orders: Discharge Order (Routine); Ordered 05/16/25 Ordered By: Lonnie Saxena DS: Diagnosis Discharge Diagnosis (1) Bladder cancer: Status: Acute
[2025-05-16] MEDS: fentaNYL 100 MCG/2 ML VIAL IVP (08:43)
--- NOTE | 2025-05-16 08:53 | W.PM.OP ---
Operative Note Operative Note PRE-OP DIAGNOSIS: Bladder Cancer POST-OP DIAGNOSIS: same PROCEDURE: cystoscopy, TUR Bladder Tumor, Instill Mitomycin C into bladder SURGEON: Lonnie Saxena ANESTHESIA TYPE: Local By Surgeon and General:No Airway Refer to Anesthesia Record ESTIMATED BLOOD LOSS: 5 PATHOLOGY: other (bladder tumor) COMPLICATIONS: None Patient was transported to: PACU Patient's condition: stable Implants: 16 Martiniquais Gardner with 10 cc sterile water in balloon Indications: This is an 84-year-old gentleman who has a history of urothelial cell carcinoma of the bladder. Previously, his tumor involve the lamina propria and we treated him with an induction series of intravesical gemcitabine. He has had some recurrent tumors, but they have all been superficial. On his most recent surveillance cystoscopy, we identified a small papillary lesion at the bladder neck. He presents for transurethral resection and intravesical Mitomycin-C into the bladder. Findings: 2 cm papillary bladder lesion just at the bladder neck Procedure Description: The patient was given antibiotics and brought to the operating room on 05/16/2025. After successful induction of general anesthesia, he was placed in the dorsal lithotomy position. His genitalia was prepped and draped. 2% Xylocaine jelly was instilled into the urethra. A 22 Martiniquais rigid cystoscope was passed through the urethra into the bladder. The urethra and bladder were inspected using a 30 degree lens. The pendulous, bulbar and membranous urethra appeared normal with no strictures. The prostatic urethra had pale mucosa consistent with radiation changes. The bladder neck was entered and the bladder mucosa was inspected. Just within the bladder neck, there were 2 small papillary lesions measuring less than 2 cm in largest dimension. No additional abnormalities were seen within the bladder. We removed the cystoscope and passed a 24 Martiniquais resectoscope sheath through the urethra into the bladder. Transurethral resection of the visible lesions was performed using an [employer] resectoscope and bipolar cautery. The resection sites were then cauterized. All resected tissue was evacuated and sent to pathology for permanent section. The resectoscope was then removed and a 16 Martin[place] Gardner catheter was passed through the urethra into the bladder. The catheter balloon was inflated with 10 cc of sterile water. The bladder was drained. A solution containing 40 mg of Mitomycin-C mixed and 40 mL of dilute was then instilled into the bladder through the catheter. The catheter was clamped allowing the liquid to remain in place. The patient tolerated this procedure well with no complications. He was taken to the recovery room in stable condition. Date of Procedure: 05/16/25
--- NOTE | 2025-05-16 09:27 | W.ANESPOSTOP ---
Postoperative Evaluation Date, Time and Location Date Performed: 05/16/25 Time Performed: 09:29 Patient Location: Day Surgery Unit Vital Signs Most Recent Imported Vital Signs: Most Recent Vital Signs Temp Pulse Resp BP Pulse Ox 36.7 C 74 18 135/65 98 05/16/25 08:55 05/16/25 08:55 05/16/25 08:55 05/16/25 08:55 05/16/25 08:55 Pain Score Most Recent Pain Score: Most Recent Pain Score Pain Level 2 05/16/25 09:26 Assessment Mental Status: Awake (Alert & Oriented to Patient Baseline) Airway and Respiratory Function: Patent airway with normal (patient baseline) respiratory exam Cardiovascular Function: Hemodynamically Stable Hydration Status: Adequately Hydrated Nausea & Vomiting: No Nausea or Vomiting Pain: Pain is tolerable per patient Peripheral Nerve Block: Patient did not receive a nerve block
[2025-05-16] MEDS: Phenazopyridine 200 MG TAB PO (09:56)
== END 2025-05-16 10:30 | disposition home or self-care (01) ==
PROVIDERS: PCP Student in an Organized Health Care Education/Training Program; Visit Provider Urology
PROC: 0TBB8ZZ Excision of Bladder, Via Natural or Artificial Opening Endoscopic (ICD-10-PCS; CPT 52500; principal; 2025-05-16 07:30)
DX: C67.5 Malignant neoplasm of bladder neck (principal); I10 Essential (primary) hypertension; D64.9 Anemia, unspecified; D69.6 Thrombocytopenia, unspecified; J44.9 Chronic obstructive pulmonary disease, unspecified; N32.89 Other specified disorders of bladder
CPT/HCPCS: 52500; 51720; 88305; J0690; J1100; J2003; J2405; J2704; J3010; J9280

== ENCOUNTER → 2025-05-19 12:29 | Outpatient (BNVA) | payer MEDICARE, SELFPAY | PROVIDERS: PCP Student in an Organized Health Care Education/Training Program; Referring Provider Student in an Organized Health Care Education/Training Program; Visit Provider Urology | DX: R10.9 Unspecified abdominal pain (principal); R11.2 Nausea with vomiting, unspecified; C67.9 Malignant neoplasm of bladder, unspecified | CPT/HCPCS: 99214; 51798 ==

== ENCOUNTER 2025-05-19 14:08 | Emergency (ER) | payer MEDICARE, SELFPAY ==
[2025-05-19] VITALS (14 sets, daily range): BP systolic 172–187; BP diastolic 48–76; PULSE 81–100; RESP 18–33; TEMP 36.7; O2SAT 96–98
--- NOTE | 2025-05-19 14:30 | DI.CT_ITS ---
Exam(s) CT ABDOMEN PELVIS WO EXAM: CT ABDOMEN PELVIS WO CLINICAL HISTORY: abd pain. TECHNIQUE: Imaging Protocol: Axial computed tomography images with coronal and sagittal reformatted images were created and reviewed. Oral: / no COMPARISON: CT CT CHEST PE CTA from 09/28/[address] ABDOMEN PELVIS W from 09/03/2024 CR XR CHEST 2V PA LATERAL from 01/03/2025 FINDINGS: Lung Bases: No acute findings. Severe chronic interstitial changes. The heart is enlarged. Liver: Normal density. No suspicious mass. Gallbladder and biliary tract: There are few calcified gallstones in the dependent portion of the gallbladder. No gallbladder wall thickening. No biliary dilation. Pancreas: Somewhat atrophic. Normal density. No abnormal calcifications or inflammatory process. Spleen: Enlarged at 15 cm in length. Kidneys: Duplex collecting system on the left. There are few tiny left renal calculi. The collecting system is dilated. The ureter is dilated down to the level of the bladder. No stone is visible. There is some perinephric stranding and stranding around the right renal pelvis and anterior perirenal fat.. No suspicious masses seen. Adrenal glands: No masses seen. Lymph nodes: Within normal limits. Vasculature: Abdominal aorta non-dilated. Atherosclerotic calcifications. Soft tissues: Unremarkable. Bladder: No wall thickening. No mass or calculi. Bowel: Evaluation is mildly limited by motion. No obstruction or bowel wall thickening. Peritoneal cavity: No ascites. No focal collection. No mesenteric inflammatory response. Reproductive organs: Metallic densities within the prostate. The right testicle is position with the in the right inguinal canal. Bones: Unremarkable for age. IMPRESSION: Moderate left hydronephrosis with left perinephric and periureteral stranding. No obstructing stone is visible. This could be secondary to a recently passed stone. Splenomegaly. Findings called to Dr. Funk of the emergency department. RADIATION DOSE DELIVERED: Total DLP DATA REPOSITORY: All CT scans at this facility are submitted to the National Radiology Data Registry (NRDR) Dose Index Registry (DIR) with the [employer] ([employer]). RADIATION OPTIMIZATION: All CT scans at this facility use at least one of these dose optimization techniques: automated exposure control; mA and/or kV adjustment per patient size (includes targeted exams where dose is matched to clinical indication); or iterative reconstruction.
--- NOTE | 2025-05-19 14:30 | RT.EKG_ITS ---
APPROVED REPORT Exam: Resting ECG Reason for Exam: abd pain Patient Location: E HR:92 bpm ECG Measurements Heart Rate 92 AXIS NM 163 P 34 QRSd 80 QRS 20 QT 340 T 26 QTc 420 Conclusion Sinus rhythm 92 normal axis no stemi
[2025-05-19 15:08] LABS: Abs Immature Grans 0.04 10^3/uL (0.0-0.06); HCT 28.7 % (40.0-50.0); HGB 9.9 g/dL (13.5-17.5); Immature Grans % 0.6 %; MCH 32.1 pg (27.0-33.0); MCHC 34.5 % (32.0-36.0); MCV 93 fL (80-95); MPV 13.1 fL (8.0-11.0); RBC 3.08 10^6/uL (4.36-5.78); RDW 13.2 % (11.8-14.1); RDW-SD 45.0 fL; WBC 7.06 10^3/uL (4.4-10.8)
[2025-05-19 15:13] LABS: INR 1.6 (0.9-1.1); Prothrombin Time 15.2 sec (9.1-11.1)
[2025-05-19 15:23] LABS: ALT 18 U/L (16-63); AST 33 U/L (15-37); Albumin 2.4 g/dL (3.4-5.0); Alkaline Phosphatase 135 U/L (46-116); Anion Gap 11.7 mmol/L (3-11); BUN 50 mg/dL (7-18); Bilirubin, Total 3.3 mg/dL (0.2-1.0); CO2 20.3 mmol/L (21.0-32.0); Calcium 8.3 mg/dL (8.5-10.1); Chloride 105 mmol/L (98-107); Estimated GFR 25.02 (mL/min/1.73m2); Glucose 125 mg/dL (74-106); Lipase 69 U/L (<78); Magnesium 1.6 mg/dL (1.8-2.4); Potassium 4.8 mmol/L (3.5-5.1); Sodium 137 mmol/L (136-145); Total Protein 7.7 g/dL (6.4-8.2)
[2025-05-19 15:31] LABS: Platelet Count 41 10^3/uL (130-400); RBC Morphology Normal
[2025-05-19] MEDS: Ondansetron 4 MG/2 ML VIAL IVP (15:50)
[2025-05-19] MEDS: ACETAMINOPHEN 1,000 MG/100 ML BAG 400 MG IVPB (15:51)
[2025-05-19 16:16] LABS: Glucose Negative (Negative)
[2025-05-19 16:22] LABS: C & S Indicated? No
[2025-05-19] MEDS: Normal Saline 500 ML IV (17:05)
--- NOTE | 2025-05-19 17:43 | W.ED.GENAD ---
Discharge Plan Disposition Patient Disposition: Home Discharge Details Clinical Impression: Acute flank pain, JESUS (acute kidney injury) Primary Care Provider: Ulices Simpson ED Provider: Zandra Funk Home Meds and New Rx's Prescriptions: New methylprednisolone [Medrol (Murali)] 4 mg tablets,dose pack See Rx Instructions .ROUTE .COMPLEX 6 Days Qty: 1 0RF Rx Instructions: orally per package directions ondansetron 4 mg tablet,disintegrating 4 mg PO Q6H PRN (Reason: nausea and vomiting) Qty: 30 0RF No Action chlorthalidone 25 mg tablet 25 mg PO Q OTHER DAY Patient Comments: Pt now takes 25mg tablet Q other day by mouth once a day 11/22/24 magnesium oxide 250 MG tablet 500 mg PO DAILY AM Spiriva Respimat 2.5 mcg/actuation mist 2 puff inhalation DAILY ferrous sulfate 325 mg (65 mg iron) tablet 325 mg PO Q OTHER DAY cyanocobalamin (vitamin B-12) [Vitamin B-12] 500 mcg Tablet 1,000 mcg PO DAILY Qty: 30 0RF thiamine mononitrate (vit B1) [Vitamin B-1 (mononitrate)] 100 mg Tablet 100 mg PO DAILY Qty: 30 0RF docusate sodium [Colace] 100 mg capsule 100 mg PO DAILY albuterol sulfate 8.5 GM HFA aerosol inhaler 2 puff Inhalation Q4H PRN Patient Comments: Ventolin calcium carbonate-vitamin D3 [Calcium 600 + D(3)] 600 mg calcium- 200 unit Capsule 1 cap PO DAILY losartan 100 mg tablet 100 mg PO DAILY mirabegron [Myrbetriq] 25 mg tablet extended release 24 hr 25 mg PO DAILY omeprazole 20 mg capsule,delayed release(DR/EC) 40 mg PO DAILY Qty: 0 0RF acetaminophen [Tylenol Extra Strength] 500 mg tablet 500 mg PO Q6H PRN Discharge Instructions Additional Instructions: Please start Medrol Dosepak as directed Take Zofran as needed for any nausea and make sure that you are drinking lots of fluids. Please return to the emergency department if you are unable to drink fluids or keep anything down. Please follow-up with Dr. Saxena on Friday HPI General Date/Time Provider Initiated Documentation: 05/19/25 14:37. Limitations to Documentation: no limitations. Information obtained by: patient and RN/MD. HPI Narrative: 84-year-old gentleman with past medical history of bladder and prostate cancer presents for evaluation of the left flank pain. He reports that symptoms started last night. Starts in his back and radiates down to the front. He reports that 3 days ago he had a procedure with Dr. Saxena. He denies any difficulty urinating but states he cannot remember the last time that he peed. He reports that he did have a bowel movement this morning but did have to strain quite a bit to be able to poop. Had 1 episode of vomiting after arrival in the emergency department. Related Data Home Medications ?Medication ?Instructions ?Recorded ?Confirmed magnesium oxide 500 mg PO DAILY AM 02/25/17 05/19/25 calcium 600 mg (as 1 cap PO DAILY 09/03/18 05/19/25 carbonate)-vitamin D3 5 mcg (200 unit) capsule (Calcium 600 + D(3)) tiotropium bromide 2.5 2 puff inhalation DAILY 05/31/21 05/19/25 mcg/actuation mist for inhalation (Spiriva Respimat) losartan 100 mg tablet 100 mg PO DAILY 10/08/23 05/19/25 mirabegron 25 mg tablet,extended 25 mg PO DAILY 10/08/23 05/19/25 release 24 hr (Myrbetriq) omeprazole 20 mg capsule,delayed 40 mg (2 x 20 mg) PO DAILY #0 caps 10/10/23 05/19/25 release acetaminophen 500 mg tablet 500 mg PO Q6H PRN 02/19/24 05/19/25 (Tylenol Extra Strength) chlorthalidone 25 mg tablet 25 mg PO Q OTHER DAY 03/11/24 05/19/25 cyanocobalamin (vitamin B-12) 500 1,000 mcg (2 x 500 mcg) PO DAILY 09/06/24 05/19/25 mcg tablet (Vitamin B-12) #30 tabs thiamine mononitrate (vit B1) 100 100 mg PO DAILY #30 tabs 09/06/24 05/19/25 mg tablet (Vitamin B-1 (mononitrate)) albuterol sulfate 90 mcg/actuation 2 puff inhalation Q4H PRN 11/23/24 05/19/25 aerosol inhaler docusate sodium 100 mg capsule 100 mg PO DAILY 11/23/24 05/19/25 (Colace) ferrous sulfate 325 mg (65 mg 325 mg PO Q OTHER DAY 12/06/24 05/19/25 iron) tablet methylprednisolone 4 mg tablets in See Rx Instructions PO .COMPLEX 6 05/19/25 a dose pack (Medrol (Murali)) days #1 pkg ondansetron 4 mg disintegrating 4 mg PO Q6H PRN nausea and 05/19/25 tablet vomiting #30 tabs Previous Rx's ?Medication ?Instructions ?Recorded omeprazole 20 mg capsule,delayed 40 mg (2 x 20 mg) PO DAILY #0 caps 10/10/23 release cyanocobalamin (vitamin B-12) 500 1,000 mcg (2 x 500 mcg) PO DAILY 09/06/24 mcg tablet (Vitamin B-12) #30 tabs thiamine mononitrate (vit B1) 100 100 mg PO DAILY #30 tabs 09/06/24 mg tablet (Vitamin B-1 (mononitrate)) methylprednisolone 4 mg tablets in See Rx Instructions PO .COMPLEX 6 05/19/25 a dose pack (Medrol (Murali)) days #1 pkg ondansetron 4 mg disintegrating 4 mg PO Q6H PRN nausea and 05/19/25 tablet vomiting #30 tabs Allergies Allergy/AdvReac Type Severity Reaction Status Date / Time ATUL Inhibitors AdvReac cough Verified 05/19/25 14:16 General Stated Complaint: Abd Prob MANGO: 3 Exam Narrative Exam Narrative: Review of Systems: All systems reviewed & are unremarkable except as noted in HPI and below Well-developed, no acute distress Afebrile NCAT RRR no murmur Unlabored respiratory effort clear bilaterally Nondistended abdomen soft, suprapubic tenderness, no CVA tenderness Course Vital Signs Vital signs: Vital Signs Temperature 36.7 C 05/19/25 14:18 Pulse 81 05/19/25 14:18 Respiratory Rate 20 05/19/25 14:18 Blood Pressure 187/48 H 05/19/25 14:18 Pulse Oximetry 97 05/19/25 14:18 Temperature 36.7 C 05/19/25 14:18 Temperature Source Oral 05/19/25 14:18 Pulse 81 05/19/25 14:18 Respiratory Rate 20 05/19/25 14:18 Blood Pressure 187/48 H 05/19/25 14:18 Blood Pressure Position Sitting 05/19/25 14:18 Pulse Oximetry 97 05/19/25 14:18 Oxygen Delivery Method Room Air 05/19/25 14:59 Oxygen Flow Rate 0 05/19/25 14:18 Pain Level 9 05/19/25 15:50 Lab/Test Results Lab/Test Results: Laboratory Tests Range/Units 05/19/25 14:45 WBC (4.4-10.8) 10^3/uL 7.06 RBC (4.36-5.78) 10^6/uL 3.08 L Hgb (13.5-17.5) g/dL 9.9 L Hct (40.0-50.0) % 28.7 L MCV (80-95) fL 93 MCH (27.0-33.0) pg 32.1 MCHC (32.0-36.0) % 34.5 RDW (11.8-14.1) % 13.2 Plt Count (130-400) 10^3/uL 41 L MPV (8.0-11.0) fL 13.1 H Immature Gran % % 0.6 Neutrophils % % 84.4 Lymphocytes % % 5.7 Monocytes % % 8.6 Eosinophils % % 0.3 Basophils % % 0.4 Nucleated RBC % (0.0-0.3) % 0.0 Absolute Neutrophils (1.2-6.7) 10^3/uL 5.96 Absolute Lymphocytes (1.2-3.4) 10^3/uL 0.40 L Absolute Monocytes (0.1-0.8) 10^3/uL 0.61 Absolute Eosinophils (0.0-0.7) 10^3/uL 0.02 Absolute Basophils (0.0-0.2) 10^3/uL 0.03 RBC Morphology Normal PT (9.1-11.1) sec 15.2 H INR (0.9-1.1) 1.6 H Sodium (136-145) mmol/L 137 Potassium (3.5-5.1) mmol/L 4.8 Chloride (98-107) mmol/L 105 Carbon Dioxide (21.0-32.0) mmol/L 20.3 L Anion Gap (3-11) mmol/L 11.7 H BUN (7-18) mg/dL 50 H Creatinine (0.70-1.30) mg/dL 2.5 H Est GFR (CKD-EPI 2020) (mL/min/1.73m2) 25.02 Glucose (74-106) mg/dL 125 H Calcium (8.5-10.1) mg/dL 8.3 L Magnesium (1.8-2.4) mg/dL 1.6 L Total Bilirubin (0.2-1.0) mg/dL 3.3 H AST (15-37) U/L 33 ALT (16-63) U/L 18 Alkaline Phosphatase (46-116) U/L 135 H Total Protein (6.4-8.2) g/dL 7.7 Albumin (3.4-5.0) g/dL 2.4 L Lipase (<78) U/L 69 Urine Color (Yellow) Yellow Urine Clarity (Clear) Clear Urine pH (5-8) 5.5 Ur Specific [place] (1.005-1.025) 1.015 Urine Protein (Neg-Trace) mg/dL 30 H Urine Ketones (Negative) mg/dL Negative Urine Blood (Negative) Moderate H Urine Nitrite (Negative) Negative Urine Bilirubin (Negative) Negative Urine Urobilinogen (Up to 0.2) mg/dL 1.0 H Ur Leukocyte Esterase (Negative) Negative Urine RBC (0-2) HPF 10-20 H Urine WBC (0-5) HPF 3-5 Ur Epithelial Cells (Negative) HPF Rare Urine Crystals (Negative) HPF Negative Urine Bacteria (Negative) HPF Negative Urine Mucus (Negative) Negative Ur Culture Indicated? No Urine Glucose (Negative) mg/dL Negative Medical Decision Making Emergent evaluation of left flank pain. Patient had recent urologic procedure and chemotherapy seeding done by urology. Initial differential includes urinary retention, obstruction, kidney stone, infectious etiology. Lab work obtained, no leukocytosis, there is chronic anemia that is stable in comparison with baseline. His BUN and creatinine are slightly above baseline and the patient was resuscitated with 500 mL of fluid. His urinalysis demonstrates blood, but no signs of infectious etiology. A CT scan was obtained and I discussed the radiograph with the radiologist. There is concern for left hydronephrosis though no kidney stone is seen. I discussed with Dr. Saxena, urology who evaluated the patient in the emergency department is familiar with this clinical course. He is concern for possible inflammatory change at the orifice in the bladder and this may be causing some obstructive type pathology. He is recommending Medrol Dosepak and aggressive oral hydration at home. He patient understands to return to the emergency department if he is not urinating adequately you are able to keep anything down or has significant worsening in his symptoms. He will follow-up with urology on Friday. Quality:SDOH Health Related Social Needs: Health related social needs lonely/isolated [facility] All Active Problems (Updated 05/19/25 @ 16:30 by Zandra Funk MD) JESUS (acute kidney injury) (Acute) Acute flank pain (Acute) Otitis externa of left ear (Acute) Cellulitis (Acute) Anemia (Chronic) Abnormal head CT (Acute) SPENCER (nonalcoholic steatohepatitis) (Chronic) Radiation proctitis (Chronic) Coagulopathy (Chronic) Elevated INR (Acute) Chronic blood loss anemia (Chronic) Chronic radiation proctitis (Chronic) Anal stricture (Acute) Hematochezia (Acute) Cough (Acute) Urgency incontinence (Acute) Bladder cancer (Acute) Mixed hearing loss, bilateral (Acute) Thrombocytopenia (Chronic) Hypertension (Chronic) Medical History Fall Urinary incontinence Abnormal gait History of prostate cancer CKD (chronic kidney disease), stage III Restrictive lung disease 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) PFT impression from August 24, 2018 showed mild restrictive lung disease COPD (chronic obstructive pulmonary disease) GERD (gastroesophageal reflux disease) Otosclerosis of both ears Bronchospasm Community acquired pneumonia of both lungs Rales Listed as basilar rales in PCP chart Fever Acute blood loss anemia Acute urinary retention Hematuria Esophageal varices Carpal tunnel syndrome Cirrhosis of liver Other otosclerosis, bilateral Internal hemorrhoid Gross hematuria Prostate cancer Right carpal tunnel syndrome Surgical History History of ear surgery S/P endoscopic carpal tunnel release (09/09/18) Family History Mother No problems noted. Father Cardiovascular disease Brother No problems noted. 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
== END 2025-05-19 18:24 | disposition home or self-care (01) ==
PROVIDERS: Emergency Provider Emergency Medicine; PCP Student in an Organized Health Care Education/Training Program
DX: R10.31 Right lower quadrant pain (principal); R11.2 Nausea with vomiting, unspecified; N17.9 Acute kidney failure, unspecified; Z85.51 Personal history of malignant neoplasm of bladder; Z85.46 Personal history of malignant neoplasm of prostate
CPT/HCPCS: 99284 ×2; 96375; 36415; 51798; 80053; 83690; 93005; 96361; 96365; 74176; 81003; 81015; 83735; 85025; 85610; 93010; J0131; J2405

== ENCOUNTER 2025-05-20 02:45 | Emergency (ER) | payer MEDICARE, SELFPAY ==
[2025-05-20] VITALS (35 sets, daily range): BP systolic 140–180; BP diastolic 44–58; PULSE 68–86; RESP 20; TEMP 36.6–37; O2SAT 95–98
--- NOTE | 2025-05-20 03:00 | W.ED.GENAD ---
Discharge Plan Disposition Patient Disposition: Home Condition: Good Discharge Details Clinical Impression: Abdominal pain Primary Care Provider: Ulices Simpson ED Provider: Siena Nolasco Home Meds and New Rx's Prescriptions: Continued chlorthalidone 25 mg tablet 25 mg PO Q OTHER DAY Patient Comments: Pt now takes 25mg tablet Q other day by mouth once a day 11/22/24 magnesium oxide 250 MG tablet 500 mg PO DAILY AM Spiriva Respimat 2.5 mcg/actuation mist 2 puff inhalation DAILY ferrous sulfate 325 mg (65 mg iron) tablet 325 mg PO Q OTHER DAY cyanocobalamin (vitamin B-12) [Vitamin B-12] 500 mcg Tablet 1,000 mcg PO DAILY Qty: 30 0RF thiamine mononitrate (vit B1) [Vitamin B-1 (mononitrate)] 100 mg Tablet 100 mg PO DAILY Qty: 30 0RF docusate sodium [Colace] 100 mg capsule 100 mg PO DAILY albuterol sulfate 8.5 GM HFA aerosol inhaler 2 puff Inhalation Q4H PRN Patient Comments: Ventolin methylprednisolone [Medrol (Murali)] 4 mg tablets,dose pack See Rx Instructions .ROUTE .COMPLEX 6 Days Qty: 1 0RF Rx Instructions: orally per package directions ondansetron 4 mg tablet,disintegrating 4 mg PO Q6H PRN (Reason: nausea and vomiting) Qty: 30 0RF calcium carbonate-vitamin D3 [Calcium 600 + D(3)] 600 mg calcium- 200 unit Capsule 1 cap PO DAILY losartan 100 mg tablet 100 mg PO DAILY mirabegron [Myrbetriq] 25 mg tablet extended release 24 hr 25 mg PO DAILY omeprazole 20 mg capsule,delayed release(DR/EC) 40 mg PO DAILY Qty: 0 0RF acetaminophen [Tylenol Extra Strength] 500 mg tablet 500 mg PO Q6H PRN Discharge Instructions Instructions: Abdominal Pain, Adult ED Additional Instructions: Tylenol over the counter for pain; follow the directions on the bottle. Make sure you take your ondansetron as prescribed for nausea. Continue taking the medrol dose-pack you were prescribed. Stay hydrated and drink lots of fluids. Followup with Dr. Saxena on Friday. Return to the emergency department for new or worsening symptoms, including if your pain is severe after taking tylenol, you are vomiting after taking zofran, you are unable to urinate, you have difficulty breathing, or if you have any other concerns. HPI General Mode of arrival: EMS. Date/Time Provider Initiated Documentation: 05/20/25 03:00. Limitations to Documentation: no limitations. Information obtained by: patient, EMS and old records reviewed. HPI Narrative: 84yo M with hx bladder & prostate cancer, transurethral resection of bladder mass on 05/16, presenting for lower abdominal pain. ED visit yesterday for same symptoms; since ED discharge ~ 12 hours ago he has had no change in his pain and it is keeping him awake tonight. Pain is dull/burning, located in his lower abdomen, and nothing seems to make it better or worse. Has not taken anything at home for pain. Last voided about 2 hours prior to arrival, no blood that he could see and he felt like he emptied his bladder. Last BM yesterday. Has had some nausea and vomiting since yesterday including vomit (nonbloody nonbilious) x 2 since ED discharge. He was prescribed zofran from the ED but has not been taking it. He is otherwise in his usual state of health with no fevers, chills, rash, upper abodminal pain, back pain, flank pain, numbness, tingling, weakness, or other concerns. Related Data Home Medications ?Medication ?Instructions ?Recorded ?Confirmed magnesium oxide 500 mg PO DAILY AM 02/25/17 05/20/25 calcium 600 mg (as 1 cap PO DAILY 09/03/18 05/20/25 carbonate)-vitamin D3 5 mcg (200 unit) capsule (Calcium 600 + D(3)) tiotropium bromide 2.5 2 puff inhalation DAILY 05/31/21 05/20/25 mcg/actuation mist for inhalation (Spiriva Respimat) losartan 100 mg tablet 100 mg PO DAILY 10/08/23 05/20/25 mirabegron 25 mg tablet,extended 25 mg PO DAILY 10/08/23 05/20/25 release 24 hr (Myrbetriq) omeprazole 20 mg capsule,delayed 40 mg (2 x 20 mg) PO DAILY #0 caps 10/10/23 05/20/25 release acetaminophen 500 mg tablet 500 mg PO Q6H PRN 02/19/24 05/20/25 (Tylenol Extra Strength) chlorthalidone 25 mg tablet 25 mg PO Q OTHER DAY 03/11/24 05/20/25 cyanocobalamin (vitamin B-12) 500 1,000 mcg (2 x 500 mcg) PO DAILY 09/06/24 05/20/25 mcg tablet (Vitamin B-12) #30 tabs thiamine mononitrate (vit B1) 100 100 mg PO DAILY #30 tabs 09/06/24 05/20/25 mg tablet (Vitamin B-1 (mononitrate)) albuterol sulfate 90 mcg/actuation 2 puff inhalation Q4H PRN 11/23/24 05/20/25 aerosol inhaler docusate sodium 100 mg capsule 100 mg PO DAILY 11/23/24 05/20/25 (Colace) ferrous sulfate 325 mg (65 mg 325 mg PO Q OTHER DAY 12/06/24 05/20/25 iron) tablet methylprednisolone 4 mg tablets in See Rx Instructions PO .COMPLEX 6 05/19/25 05/20/25 a dose pack (Medrol (Murali)) days #1 pkg ondansetron 4 mg disintegrating 4 mg PO Q6H PRN nausea and 05/19/25 05/20/25 tablet vomiting #30 tabs Previous Rx's ?Medication ?Instructions ?Recorded omeprazole 20 mg capsule,delayed 40 mg (2 x 20 mg) PO DAILY #0 caps 10/10/23 release cyanocobalamin (vitamin B-12) 500 1,000 mcg (2 x 500 mcg) PO DAILY 09/06/24 mcg tablet (Vitamin B-12) #30 tabs thiamine mononitrate (vit B1) 100 100 mg PO DAILY #30 tabs 09/06/24 mg tablet (Vitamin B-1 (mononitrate)) methylprednisolone 4 mg tablets in See Rx Instructions PO .COMPLEX 6 05/19/25 a dose pack (Medrol (Murali)) days #1 pkg ondansetron 4 mg disintegrating 4 mg PO Q6H PRN nausea and 05/19/25 tablet vomiting #30 tabs Allergies Allergy/AdvReac Type Severity Reaction Status Date / Time ATUL Inhibitors AdvReac cough Verified 05/20/25 03:31 General Stated Complaint: Abd Prob MANGO: 3 Review of Systems Narrative: see HPI Exam Narrative Exam Narrative: General: Alert, well appearing, well nourished, in no acute distress. Head: Normocephalic, atraumatic Neck: Trachea midline, ?Neck supple. ENT: ?MMM.? Cardiac: ?RRR, no murmurs appreciated Resp: No respiratory distress. CTAB. Abd: ?Soft, non-distended. Mild suprapubic tenderness to palpation; no other focal abdominal tenderness. : ?+ suprapubic tenderness. No CVA tenderness. Extremities: ?No deformities.? No peripheral edema. Neurologic: GCS 15. ? Moves all extremities freely against gravity Course Vital Signs Vital signs: Vital Signs Temperature 37.0 C 05/20/25 02:34 Pulse 80 05/20/25 02:34 Respiratory Rate 20 05/20/25 02:34 Pulse Oximetry 96 05/20/25 02:34 Temperature 37.0 C 05/20/25 02:34 Pulse 80 05/20/25 02:34 Respiratory Rate 20 05/20/25 02:34 Blood Pressure Position Sitting 05/20/25 02:34 Pulse Oximetry 96 05/20/25 02:34 Oxygen Delivery Method Room Air 05/20/25 02:34 Oxygen Flow Rate 0 05/20/25 02:34 Medical Decision Making 84yo M with hx bladder & prostate cancer, transurethral resection of bladder mass on 05/16, presenting for lower abdominal pain with associated N/V. Hypertensive on arrival, vital signs otherwise reassuring. Mild suprapubic tenderness on exam with no guarding abdominal tenderness elsewhere. Well appearing and in no distress. Pain has persisted unchanged since ED discharge ~ 12 hours ago and it is keeping him awake tonight; he has not taken anything for pain. Bladder scanned with no urinary retention present. Will treat symptoms initially with tylenol, toradol, pyridium while awaiting results of workup. [facility] records reviewed including ED visit yesterday for same symptoms and operative note from 05/16; labs yesterday showed JESUS and elevated bilirubin, UA with no infection, and CT with some left sided hydronephrosis with normal bowels. Medical records also indicate CKD (pt had denied hx of lung, kidney, or liver problems on initial assessment) with GFR yesterday 23. Dr. Saxena from urology was consulted at that visit and was concerned for possible inflammatory change at the orifice of the bladder; recommended medrol dosepak and oral hydration at home. Based on the reassuring abdominal exam today I would not repeat CT at this time. History and exam are not suggestive of aortic dissection or mesenetric ischemia and so no indication for CTA. Pain is most likely bladder/post-operative in nature and with no treatment at home it is unsurprising that it has not improved in the last 12 hours. Given CKD and GFR <50 yesterday, pyridium contraindicated and would not given further doses. Further NSAIDs also not advised. Labs reviewed as below, CBC reassuring with no leukocytosis and anemia and thrombocytopenia at baseline, CMP with minimal change from yesterday (Cr slightly increased at 2.7 and bilirubin also elevated at 3.8), Mg 1.5 (oral replacement ordered). On reassessment patient reports pain has entirely resolved. Denies urge to urinate. Given that his bladder scan for ~40cc on arrival and he has had decreased PO intake and vomiting, will give IVFB to facilitate urine and repeat BMP afterwards to trend kidney function. Repeat BMP with stable/improved Cr at 2.5 however K slightly up at 5.3. EKG shows no sequale of hyperkalemia. Will continue with fluids (2nd liter) with plan to get UA and repeat BMP. PO challenged and tolerated well. Repeat BMP reassuring, Cr stable at 2.5 and K 4.9. UA not suggestive of infection. Discussed with Dr. Saxena who agrees with plan for outpatient followup on Friday. Encouraged assertive PO hydration at home, tylenol for pain control, zofran as prescribed for nausea, continue medrol dose pack. Lab Data Lab results reviewed: Yes I reviewed the patient's lab results. Labs: Laboratory Tests Range/Units 05/20/25 05/20/25 05/20/25 03:09 05:30 06:28 WBC (4.4-10.8) 10^3/uL 9.23 RBC (4.36-5.78) 10^6/uL 3.14 L Hgb (13.5-17.5) g/dL 10.1 L Hct (40.0-50.0) % 29.2 L MCV (80-95) fL 93 MCH (27.0-33.0) pg 32.2 MCHC (32.0-36.0) % 34.6 RDW (11.8-14.1) % 13.2 Plt Count (130-400) 10^3/uL 41 L MPV (8.0-11.0) fL Immature Gran % % 0.5 Neutrophils % % 89.3 Lymphocytes % % 3.9 Monocytes % % 6.0 Eosinophils % % 0.1 Basophils % % 0.2 Nucleated RBC % (0.0-0.3) % 0.0 Absolute Neutrophils (1.2-6.7) 10^3/uL 8.24 H Absolute Lymphocytes (1.2-3.4) 10^3/uL 0.36 L Absolute Monocytes (0.1-0.8) 10^3/uL 0.55 Absolute Eosinophils (0.0-0.7) 10^3/uL 0.01 Absolute Basophils (0.0-0.2) 10^3/uL 0.02 Sodium (136-145) mmol/L 136 137 138 Potassium (3.5-5.1) mmol/L 4.8 5.3 H 4.9 Chloride (98-107) mmol/L 104 105 108 H Carbon Dioxide (21.0-32.0) mmol/L 18.3 L 19.0 L 18.0 L Anion Gap (3-11) mmol/L 13.7 H 13.0 H 12.0 H BUN (7-18) mg/dL 52 H 51 H 51 H Creatinine (0.70-1.30) mg/dL 2.7 H 2.5 H 2.5 H Est GFR (CKD-EPI 2020) (mL/min/1.73m2) 22.82 25.02 25.02 Glucose (74-106) mg/dL 147 H 143 H 148 H Calcium (8.5-10.1) mg/dL 8.3 L 7.7 L 7.4 L Magnesium (1.8-2.4) mg/dL 1.5 L Total Bilirubin (0.2-1.0) mg/dL 3.8 H AST (15-37) U/L 30 ALT (16-63) U/L 15 L Alkaline Phosphatase (46-116) U/L 120 H Total Protein (6.4-8.2) g/dL 7.5 Albumin (3.4-5.0) g/dL 2.2 L Lipase (<78) U/L 68 Urine Color (Yellow) Urine Clarity (Clear) Urine pH (5-8) Ur Specific [place] (1.005-1.025) Urine Protein (Neg-Trace) mg/dL Urine Ketones (Negative) mg/dL Urine Blood (Negative) Urine Nitrite (Negative) Urine Bilirubin (Negative) Urine Urobilinogen (Up to 0.2) mg/dL Ur Leukocyte Esterase (Negative) Urine RBC (0-2) HPF Urine WBC (0-5) HPF Ur Epithelial Cells (Negative) HPF Urine Crystals (Negative) HPF Urine Bacteria (Negative) HPF Urine Casts (Negative) LPF Urine Mucus (Negative) Ur Culture Indicated? Urine Glucose (Negative) mg/dL Range/Units 05/20/25 07:05 WBC (4.4-10.8) 10^3/uL RBC (4.36-5.78) 10^6/uL Hgb (13.5-17.5) g/dL Hct (40.0-50.0) % MCV (80-95) fL MCH (27.0-33.0) pg MCHC (32.0-36.0) % RDW (11.8-14.1) % Plt Count (130-400) 10^3/uL MPV (8.0-11.0) fL Immature Gran % % Neutrophils % % Lymphocytes % % Monocytes % % Eosinophils % % Basophils % % Nucleated RBC % (0.0-0.3) % Absolute Neutrophils (1.2-6.7) 10^3/uL Absolute Lymphocytes (1.2-3.4) 10^3/uL Absolute Monocytes (0.1-0.8) 10^3/uL Absolute Eosinophils (0.0-0.7) 10^3/uL Absolute Basophils (0.0-0.2) 10^3/uL Sodium (136-145) mmol/L Potassium (3.5-5.1) mmol/L Chloride (98-107) mmol/L Carbon Dioxide (21.0-32.0) mmol/L Anion Gap (3-11) mmol/L BUN (7-18) mg/dL Creatinine (0.70-1.30) mg/dL Est GFR (CKD-EPI 2020) (mL/min/1.73m2) Glucose (74-106) mg/dL Calcium (8.5-10.1) mg/dL Magnesium (1.8-2.4) mg/dL Total Bilirubin (0.2-1.0) mg/dL AST (15-37) U/L ALT (16-63) U/L Alkaline Phosphatase (46-116) U/L Total Protein (6.4-8.2) g/dL Albumin (3.4-5.0) g/dL Lipase (<78) U/L Urine Color (Yellow) [place] Urine Clarity (Clear) Clear Urine pH (5-8) 5.5 Ur Specific [place] (1.005-1.025) 1.020 Urine Protein (Neg-Trace) mg/dL Trace Urine Ketones (Negative) mg/dL Negative Urine Blood (Negative) Moderate H Urine Nitrite (Negative) Positive H Urine Bilirubin (Negative) Negative Urine Urobilinogen (Up to 0.2) mg/dL 0.2 Ur Leukocyte Esterase (Negative) Negative Urine RBC (0-2) HPF 5-10 H Urine WBC (0-5) HPF 0-2 Ur Epithelial Cells (Negative) HPF Few Urine Crystals (Negative) HPF Negative Urine Bacteria (Negative) HPF Few Urine Casts (Negative) LPF Negative Urine Mucus (Negative) Negative Ur Culture Indicated? No Urine Glucose (Negative) mg/dL Negative Quality:SDOH Health Related Social Needs: Health related social needs lonely/isolated PFSH All Active Problems (Updated 05/20/25 @ 07:27 by Siena Nolasco MD) Abdominal pain (Acute) JESUS (acute kidney injury) (Acute) Acute flank pain (Acute) Otitis externa of left ear (Acute) Cellulitis (Acute) Anemia (Chronic) Abnormal head CT (Acute) SPENCER (nonalcoholic steatohepatitis) (Chronic) Radiation proctitis (Chronic) Coagulopathy (Chronic) Elevated INR (Acute) Chronic blood loss anemia (Chronic) Chronic radiation proctitis (Chronic) Anal stricture (Acute) Hematochezia (Acute) Cough (Acute) Urgency incontinence (Acute) Bladder cancer (Acute) Mixed hearing loss, bilateral (Acute) Thrombocytopenia (Chronic) Hypertension (Chronic) Medical History Fall Urinary incontinence Abnormal gait History of prostate cancer CKD (chronic kidney disease), stage III Restrictive lung disease 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) PFT impression from August 24, 2018 showed mild restrictive lung disease COPD (chronic obstructive pulmonary disease) GERD (gastroesophageal reflux disease) Otosclerosis of both ears Bronchospasm Community acquired pneumonia of both lungs Rales Listed as basilar rales in PCP chart Fever Acute blood loss anemia Acute urinary retention Hematuria Esophageal varices Carpal tunnel syndrome Cirrhosis of liver Other otosclerosis, bilateral Internal hemorrhoid Gross hematuria Prostate cancer Right carpal tunnel syndrome Surgical History History of ear surgery S/P endoscopic carpal tunnel release (09/09/18) Family History Mother No problems noted. Father Cardiovascular disease Brother No problems noted. 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
[2025-05-20] MEDS: Phenazopyridine 200 MG TAB PO (03:10)
[2025-05-20] MEDS: Acetaminophen 500 MG TAB 1000 MG PO (03:10)
[2025-05-20] MEDS: Ketorolac 15 MG/ML VIAL IVP (03:10)
[2025-05-20] MEDS: Ondansetron 4 MG/2 ML VIAL IVP (03:10)
[2025-05-20 03:16] LABS: Abs Immature Grans 0.05 10^3/uL (0.0-0.06); HCT 29.2 % (40.0-50.0); HGB 10.1 g/dL (13.5-17.5); Immature Grans % 0.5 %; MCH 32.2 pg (27.0-33.0); MCHC 34.6 % (32.0-36.0); MCV 93 fL (80-95); RBC 3.14 10^6/uL (4.36-5.78); RDW 13.2 % (11.8-14.1); RDW-SD 45.1 fL; WBC 9.23 10^3/uL (4.4-10.8)
[2025-05-20 03:25] LABS: Platelet Count 41 10^3/uL (130-400)
[2025-05-20 03:38] LABS: ALT 15 U/L (16-63); AST 30 U/L (15-37); Albumin 2.2 g/dL (3.4-5.0); Alkaline Phosphatase 120 U/L (46-116); Anion Gap 13.7 mmol/L (3-11); BUN 52 mg/dL (7-18); Bilirubin, Total 3.8 mg/dL (0.2-1.0); CO2 18.3 mmol/L (21.0-32.0); Calcium 8.3 mg/dL (8.5-10.1); Chloride 104 mmol/L (98-107); Estimated GFR 22.82 (mL/min/1.73m2); Glucose 147 mg/dL (74-106); Lipase 68 U/L (<78); Magnesium 1.5 mg/dL (1.8-2.4); Potassium 4.8 mmol/L (3.5-5.1); Sodium 136 mmol/L (136-145); Total Protein 7.5 g/dL (6.4-8.2)
[2025-05-20] MEDS: Normal Saline 1,000 ML 1000 ML IV ×2 (04:19→05:42)
[2025-05-20] MEDS: Magnesium Gluconate 500 MG TAB 1000 MG PO (04:19)
[2025-05-20 05:45] LABS: Anion Gap 13.0 mmol/L (3-11); BUN 51 mg/dL (7-18); CO2 19.0 mmol/L (21.0-32.0); Calcium 7.7 mg/dL (8.5-10.1); Chloride 105 mmol/L (98-107); Estimated GFR 25.02 (mL/min/1.73m2); Glucose 143 mg/dL (74-106); Potassium 5.3 mmol/L (3.5-5.1); Sodium 137 mmol/L (136-145)
--- NOTE | 2025-05-20 05:45 | RT.EKG_ITS ---
APPROVED REPORT Exam: Resting ECG Reason for Exam: hyperkalemia Patient Location: E HR:77 bpm ECG Measurements Heart Rate 77 AXIS IN 162 P 40 QRSd 78 QRS 24 QT 382 T 31 QTc 433 Conclusion Sinus rhythm...normal P axis, V-rate 60- [address] segment or T wave abnormalities to suggest occlusive IA
[2025-05-20 06:46] LABS: Anion Gap 12.0 mmol/L (3-11); BUN 51 mg/dL (7-18); CO2 18.0 mmol/L (21.0-32.0); Calcium 7.4 mg/dL (8.5-10.1); Chloride 108 mmol/L (98-107); Estimated GFR 25.02 (mL/min/1.73m2); Glucose 148 mg/dL (74-106); Potassium 4.9 mmol/L (3.5-5.1); Sodium 138 mmol/L (136-145)
[2025-05-20 07:20] LABS: Glucose Negative (Negative)
[2025-05-20 07:27] LABS: C & S Indicated? No; WBC 0-2 HPF (0-5)
[2025-05-20] MEDS: Ondansetron O.D.T. 4 MG TABEF, 3 TABS/BTL PO (08:01)
[2025-05-20] MEDS: methylPREDNISolone 4 MG TAB PO (08:01)
== END 2025-05-20 08:12 | disposition home or self-care (01) ==
PROVIDERS: Emergency Provider Student in an Organized Health Care Education/Training Program; PCP Student in an Organized Health Care Education/Training Program
DX: R10.30 Lower abdominal pain, unspecified (principal); I12.9 Hypertensive chronic kidney disease with stage 1 through stage 4 chronic kidney disease, or unspecified chronic kidney disease; N18.30 Chronic kidney disease, stage 3 unspecified; J44.9 Chronic obstructive pulmonary disease, unspecified; Z85.46 Personal history of malignant neoplasm of prostate; Z85.51 Personal history of malignant neoplasm of bladder; Z92.3 Personal history of irradiation; Z79.899 Other long term (current) drug therapy
CPT/HCPCS: 80048; 80053; 83690; 93005; 96361; 96374; 96375; 99284; 81003; 81015; 83735; 85025; 93010; J1885; J2405; J7509

== ENCOUNTER 2025-05-21 02:37 | Emergency (ER) | payer MEDICARE, SELFPAY ==
[2025-05-21] VITALS (18 sets, daily range): BP systolic 156–195; BP diastolic 61–76; PULSE 84–94; RESP 16; TEMP 37.1; O2SAT 95–99
--- NOTE | 2025-05-21 02:37 | W.ED.GENAD ---
Discharge Plan Disposition Patient Disposition: Transfer-Acute Inpatient Care Specific Acute Inpt Facility: [place] Discharge Details Clinical Impression: Hydronephrosis, left, Acute UTI Primary Care Provider: Ulices Simpson ED Provider: Luis Roa and New Rx's Prescriptions: No Action chlorthalidone 25 mg tablet 25 mg PO Q OTHER DAY Patient Comments: Pt now takes 25mg tablet Q other day by mouth once a day 11/22/24 magnesium oxide 250 MG tablet 500 mg PO DAILY AM Spiriva Respimat 2.5 mcg/actuation mist 2 puff inhalation DAILY ferrous sulfate 325 mg (65 mg iron) tablet 325 mg PO Q OTHER DAY cyanocobalamin (vitamin B-12) [Vitamin B-12] 500 mcg Tablet 1,000 mcg PO DAILY Qty: 30 0RF thiamine mononitrate (vit B1) [Vitamin B-1 (mononitrate)] 100 mg Tablet 100 mg PO DAILY Qty: 30 0RF docusate sodium [Colace] 100 mg capsule 100 mg PO DAILY albuterol sulfate 8.5 GM HFA aerosol inhaler 2 puff Inhalation Q4H PRN Patient Comments: Ventolin methylprednisolone [Medrol (Murali)] 4 mg tablets,dose pack See Rx Instructions .ROUTE .COMPLEX 6 Days Qty: 1 0RF Rx Instructions: orally per package directions ondansetron 4 mg tablet,disintegrating 4 mg PO Q6H PRN (Reason: nausea and vomiting) Qty: 30 0RF calcium carbonate-vitamin D3 [Calcium 600 + D(3)] 600 mg calcium- 200 unit Capsule 1 cap PO DAILY losartan 100 mg tablet 100 mg PO DAILY mirabegron [Myrbetriq] 25 mg tablet extended release 24 hr 25 mg PO DAILY omeprazole 20 mg capsule,delayed release(DR/EC) 40 mg PO DAILY Qty: 0 0RF acetaminophen [Tylenol Extra Strength] 500 mg tablet 500 mg PO Q6H PRN HPI General Mode of arrival: ambulatory. Date/Time Provider Initiated Documentation: 05/21/25 02:37. Limitations to Documentation: no limitations. Information obtained by: patient, RN notes reviewed and old records reviewed. HPI Narrative: Patient presents to ED with continued and worsening lower abdominal pain and constipation. Patient seen here 24 hours ago for same as well as 12 hours prior to that visit. Initial visit showed a CT scan that suggested some mild hydronephrosis. He had just had cystoscopy with mass resection on the . Case was discussed with Dr. Saxena at that time and he was started on Medrol. Patient had returned after that first visit with continued pain. He did not have repeat scans. He was treated with fluids and some pain medication with improvement. Since going home patient reports that he continues to feel like he needs to have a bowel movement but cannot. Pain is getting worse. He still is able to urinate and has not had any hematuria. He is had no fever that he is aware of. He has no nausea or vomiting at this time. Related Data Home Medications ?Medication ?Instructions ?Recorded ?Confirmed magnesium oxide 500 mg PO DAILY AM 02/25/17 05/21/25 calcium 600 mg (as 1 cap PO DAILY 09/03/18 05/21/25 carbonate)-vitamin D3 5 mcg (200 unit) capsule (Calcium 600 + D(3)) tiotropium bromide 2.5 2 puff inhalation DAILY 05/31/21 05/21/25 mcg/actuation mist for inhalation (Spiriva Respimat) losartan 100 mg tablet 100 mg PO DAILY 10/08/23 05/21/25 mirabegron 25 mg tablet,extended 25 mg PO DAILY 10/08/23 05/21/25 release 24 hr (Myrbetriq) omeprazole 20 mg capsule,delayed 40 mg (2 x 20 mg) PO DAILY #0 caps 10/10/23 05/21/25 release acetaminophen 500 mg tablet 500 mg PO Q6H PRN 02/19/24 05/21/25 (Tylenol Extra Strength) chlorthalidone 25 mg tablet 25 mg PO Q OTHER DAY 03/11/24 05/21/25 cyanocobalamin (vitamin B-12) 500 1,000 mcg (2 x 500 mcg) PO DAILY 09/06/24 05/21/25 mcg tablet (Vitamin B-12) #30 tabs thiamine mononitrate (vit B1) 100 100 mg PO DAILY #30 tabs 09/06/24 05/21/25 mg tablet (Vitamin B-1 (mononitrate)) albuterol sulfate 90 mcg/actuation 2 puff inhalation Q4H PRN 11/23/24 05/21/25 aerosol inhaler docusate sodium 100 mg capsule 100 mg PO DAILY 01/07/25 07/05/25 (Colace) ferrous sulfate 325 mg (65 mg 325 mg PO Q OTHER DAY 12/06/24 05/21/25 iron) tablet methylprednisolone 4 mg tablets in See Rx Instructions PO .COMPLEX 6 05/19/25 05/21/25 a dose pack (Medrol (Murali)) days #1 pkg ondansetron 4 mg disintegrating 4 mg PO Q6H PRN nausea and 05/19/25 05/21/25 tablet vomiting #30 tabs Previous Rx's ?Medication ?Instructions ?Recorded omeprazole 20 mg capsule,delayed 40 mg (2 x 20 mg) PO DAILY #0 caps 10/10/23 release cyanocobalamin (vitamin B-12) 500 1,000 mcg (2 x 500 mcg) PO DAILY 09/06/24 mcg tablet (Vitamin B-12) #30 tabs thiamine mononitrate (vit B1) 100 100 mg PO DAILY #30 tabs 09/06/24 mg tablet (Vitamin B-1 (mononitrate)) methylprednisolone 4 mg tablets in See Rx Instructions PO .COMPLEX 6 05/19/25 a dose pack (Medrol (Murali)) days #1 pkg ondansetron 4 mg disintegrating 4 mg PO Q6H PRN nausea and 05/19/25 tablet vomiting #30 tabs Allergies Allergy/AdvReac Type Severity Reaction Status Date / Time ATUL Inhibitors AdvReac cough Verified 05/21/25 02:35 General Stated Complaint: Abd Prob MANGO: 3 Exam Narrative Exam Narrative: Const: WDWN elderly male in NAD. VS per triage. HEENT: NC/AT. Normal facial exam. Neck: Supple. Trachea midline. Lungs: Normal respiratory effort. Lungs are clear. Cor: RRR without murmur. Good radial pulses. GI: Soft, mildly distended, very tender with involuntary guarding in the LLQ. Neuro: A+O x 3. Normal speech, mentation, gait. Cranial nerves II - XII grossly intact. No gross motor or sensory deficit. Ext: No C/C/E. Course Vital Signs Vital signs: Vital Signs Temperature 98.7 F 05/21/25 02:33 Pulse 90 05/21/25 02:33 Respiratory Rate 16 05/21/25 02:33 Blood Pressure 195/76 H 05/21/25 02:33 Pulse Oximetry 99 05/21/25 02:33 Temperature 98.7 F 05/21/25 02:33 Pulse 90 05/21/25 02:33 Respiratory Rate 16 05/21/25 02:33 Blood Pressure 195/76 H 05/21/25 02:33 Pulse Oximetry 99 05/21/25 02:33 Oxygen Delivery Method Room Air 05/21/25 02:33 Oxygen Flow Rate 0 05/21/25 02:33 Medical Decision Making Patient returning to ED for third time with worsening lower abdominal pain in the setting of recent bladder mass resection. On his last visit ED note documents mild suprapubic discomfort with palpation. Tonight patient is exquisitely tender in the left lower quadrant with involuntary guarding, no rebound. His initial CT scan 36 hours ago showed some mild hydronephrosis for which he was started on Medrol Dosepak with the idea that he was having some postoperative edema and inflammation in the bladder. He has chronic kidney disease and a GFR under 30 at baseline. I will obtain a repeat CT of the abdomen pelvis without contrast. Will also repeat laboratory studies. IV established and fluids, IV acetaminophen given. Patient's laboratory studies continue to show a stable CBC. Lactic acid is normal. Venous gas with a pH of 7.41, pCO2 25, bicarb 16. His kidney function and electrolytes remain baseline. He appears to have a chronic metabolic acidosis with respiratory compensation likely due to his kidney disease. His liver function is stable and lipase normal. Urinalysis and preliminary CT reading pending. Patient CT scan now showing definite hydronephrosis on the left with suspicion of UVJ calculus versus non-radiopaque lesion. Patient is feeling better after fluids and IV acetaminophen. Urinalysis has come back positive today with 10-20 red cells and 20-50 white cells. A gram of ceftriaxone is ordered. I have placed a call to [facility] urology to discuss with them. CT scan from today as well as 36 hours ago sent. Awaiting a callback at this time. 06:45 - Both [facility] and [facility] are at capacity and cannot accept the patient. Patient remained stable though was having a return of his pain which we will treat with some morphine. I have spoken to urology at [facility]. Patient will be excepted to the ED there under Dr. Jeff. Patient consented for transfer to [place]. He will be transferred by ambulance at the EMT level. Medical Records Medical records reviewed: Yes I reviewed the patient's medical records. Imaging Data Radiologic Study: Imaging: CT Scan Radiologist's impression: CT Abd/Pelvis w/o Contrast IMPRESSION: 1. Cirrhosis with evidence for portal hypertension. 2. Left hydroureteronephrosis. Suspect left ureterovesical junction calculus. Differential considerations include recent stone passage, obstruction by a non radiopaque lesion. Clinical correlation advised. 3. Areas of colonic thickening, may be due to liver disease and/or colitis. Clinical correlation advised. 4. Additional findings as above. Thank you for allowing us to participate in the care of your patient. Dictated and Authenticated by: Lucinda Osorio MD Lab Data Lab results reviewed: Yes I reviewed the patient's lab results. Lab results narrative: see MDM Quality:SDOH Health Related Social Needs: Health related social needs lonely/isolated PFSH All Active Problems (Updated 05/21/25 @ 06:50 by Luis Roa MD) Acute UTI (Acute) Hydronephrosis, left (Acute) Internal hemorrhoid (Acute) Urinary incontinence (Acute) Abnormal gait (Acute) Right carpal tunnel syndrome (Acute) Abdominal pain (Acute) Abnormal head CT (Acute) SPENCER (nonalcoholic steatohepatitis) (Chronic) Elevated INR (Acute) Chronic blood loss anemia (Chronic) Chronic radiation proctitis (Chronic) Anal stricture (Acute) Mixed hearing loss, bilateral (Acute) Thrombocytopenia (Chronic) Medical History Anemia Bladder cancer S/P radiation therapy Prostate cancer Hypertension History of prostate cancer CKD (chronic kidney disease), stage III Restrictive lung disease 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 Father Cardiovascular disease Brother No problems noted. 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
[2025-05-21 03:12] LABS: BE (Venous) -9 mmol/L (-2-3); HCO3 (Venous) 16 mmol/L (23-28); O2 Sat (Venous) 98 %; TCO2 (Venous) 14 mmol/L (24-29); pCO2 (Venous) 25 mmHg (41-51); pO2 (Venous) 87 mmHg
[2025-05-21 03:15] LABS: Abs Immature Grans 0.05 10^3/uL (0.0-0.06); HCT 29.5 % (40.0-50.0); HGB 10.1 g/dL (13.5-17.5); Immature Grans % 0.5 %; MCH 31.3 pg (27.0-33.0); MCHC 34.2 % (32.0-36.0); MCV 91 fL (80-95); MPV 11.9 fL (8.0-11.0); RBC 3.23 10^6/uL (4.36-5.78); RDW 13.0 % (11.8-14.1); RDW-SD 43.7 fL; WBC 9.81 10^3/uL (4.4-10.8)
[2025-05-21 03:22] LABS: Platelet Count 57 10^3/uL (130-400)
[2025-05-21 03:30] LABS: ALT 17 U/L (16-63); AST 28 U/L (15-37); Albumin 2.1 g/dL (3.4-5.0); Alkaline Phosphatase 129 U/L (46-116); Anion Gap 14.2 mmol/L (3-11); BUN 58 mg/dL (7-18); Bilirubin, Total 1.9 mg/dL (0.2-1.0); CO2 16.8 mmol/L (21.0-32.0); Calcium 8.1 mg/dL (8.5-10.1); Chloride 103 mmol/L (98-107); Estimated GFR 22.82 (mL/min/1.73m2); Glucose 123 mg/dL (74-106); Lipase 54 U/L (<78); Potassium 4.4 mmol/L (3.5-5.1); Sodium 134 mmol/L (136-145); Total Protein 7.5 g/dL (6.4-8.2)
--- NOTE | 2025-05-21 03:30 | DI.CT_ITS ---
Exam(s) CT ABDOMEN PELVIS WO EXAM: CT ABDOMEN PELVIS WO CLINICAL HISTORY: worsening LLQ pain/tenderness/guarding. TECHNIQUE: Imaging Protocol: Axial computed tomography images with coronal and sagittal reformatted images were created and reviewed CONTRAST MATERIAL: Intravenous: none Oral: None COMPARISON: No exams were available for comparison FINDINGS: VISUALIZED LUNG BASES: Chronic disease in both lung bases again noted. There are no pleural effusions.. ABDOMEN: ASCITES: There is now mild-moderate ascites in the abdomen and pelvis which was not evident on the CT scan performed 2 days ago. LIVER: Liver again appears cirrhotic. No obvious focal liver mass on this noninfused study.. GALLBLADDER/BILIARY: There is cholelithiasis again noted with calculi seen in the gallbladder body-neck region. Some fluid is seen around the gallbladder but this appears to be part of the generalized ascites. The CBD is not dilated and there are no radiopaque calculi evident in the CBD. PANCREAS: No new pancreatic findings. No evidence of pancreatitis. No pancreatic mass. Pancreatic duct is not dilated. There are no pancreatic parenchymal calcifications. SPLEEN: Splenomegaly is again noted. There are no discrete focal lesions in the spleen evident on this non few study. Splenic and portal veins again exhibit prominent diameters ADRENALS: There are no significant adrenal masses. KIDNEYS:There are few small nonobstructive calculi in the right kidney. No other right kidney findings. 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 There are are few tiny nonobstructive calculi in the left kidney. There is hydronephrosis of the left kidney and dilatation of the proximal left ureter with periureteral streaking. The lower left ureter is minimally dilated. There is no radiopaque calculus seen at the UVJ nor within the nondistended urinary bladder. There does appear to be subtle abnormal asymmetric thickening left side of the urinary wall. Suspect bladder neoplasm.. There are metallic radiation seeds in the nonenlarged prostate. ABDOMINAL AORTA: Calcified. There is abdominal aortic aneurysm with maximum diameter 3 point 2 cm. Iliac arteries are calcified and mildly enlarged. LYMPH NODES: There is no retroperitoneal nor paraaortic adenopathy. ABDOMINAL WALL: No evidence of significant anterior abdominal wall nor inguinal hernia. GI: There is no evidence of bowel obstruction, free air, nor abscess. PELVIS: LYMPH NODES: There is no intrapelvic nor inguinal adenopathy. GI: Appendix is difficult to locate is a separate structure.There is no significant sigmoid diverticular disease. URINARY BLADDER: As above. Suspect left-sided bladder neoplasm. REPRODUCTIVE: Prostate size upper normal and contains metallic radiation seeds. OSSEOUS: No fractures. No significant osseous lesions. My disc space narrowing in the lower lumbar spine. IMPRESSION: 1. Compared to the CT scan of 2 days ago there is now a significant amount of ascites in the abdomen and pelvis which not previously present two days ago. Suspect that this may be related to the cirrhotic liver, splenomegaly and portal venous hypertension here. 2. Bilateral nephrolithiasis. 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 3. Other findings as above Report called by myself to ER physician 05/21/2025 at 4:35 pm. RADIATION DOSE DELIVERED: 573.23mGy.cm Total DLP DATA REPOSITORY: All CT scans at this facility are submitted to the National Radiology Data Registry (NRDR) Dose Index Registry (DIR) with the [employer] (ACR). RADIATION OPTIMIZATION: All CT scans at this facility use at least one of these dose optimization techniques: automated exposure control; mA and/or kV adjustment per patient size (includes targeted exams where dose is matched to clinical indication); or iterative reconstruction.
[2025-05-21] MEDS: ACETAMINOPHEN 1,000 MG/100 ML BAG 400 MG IVPB (03:31)
[2025-05-21] MEDS: Normal Saline 500 ML IV (03:32)
--- NOTE | 2025-05-21 04:02 | DI.VRAD_ITS ---
PROCEDURE INFORMATION: Exam: CT Abdomen And Pelvis Without Contrast Exam date and time: 05/21/2025 3:18 AM Age: 84 years old Clinical indication: Abdominal pain; Localized; Left lower quadrant (llq); Worsening llq pain/tenderness/guarding. Patient has prostate cancer TECHNIQUE: Imaging protocol: Computed tomography of the abdomen and pelvis without contrast. Radiation optimization: All CT scans at this facility use at least one of these dose optimization techniques: automated exposure control; mA and/or kV adjustment per patient size (includes targeted exams where dose is matched to clinical indication); or iterative reconstruction. COMPARISON: CT ABDOMEN PELVIS WO 05/19/2025 3:17 PM FINDINGS: Limitations: Evaluation for some pathologies is limited without contrast. Lungs: Fibrotic changes in the lungs. Esophagus: Stranding adjacent to the esophagus. Diaphragm: Hiatal hernia. Liver: Contour irregularity in the liver. The appearance is consistent with cirrhosis. Gallbladder and biliary ducts: Distended gallbladder. Cholelithiasis. Pancreas: Fatty infiltration of the pancreas. Spleen: Marked splenomegaly. Adrenal glands: Nodular adrenal thickening. Kidneys and ureters: Ptotic, malrotated left kidney. Bilateral renal calculi. Duplicated renal collecting systems. Left hydroureteronephrosis with perinephric and periureteric stranding. 2 mm density at the left ureterovesical junction, seen only on thin section axial images, suspicious for calculus. Differential considerations include recent stone passage, obstruction by a non radiopaque lesion. Stomach and bowel: Apparent gastric thickening commensurate with underdistention. No intestinal obstruction is evident. Fluid in nondilated small bowel, nonspecific. Fecal material in the proximal colon. The ascending and sigmoid colon appear thickened. Appendix: No evidence of appendicitis. Intraperitoneal space: Small amount of ascites. Vasculature: Arterial calcifications. Ectatic, calcified aorta. Evidence for portal hypertension with collaterals and splenomegaly. Lymph nodes: Nonspecific mesenteric and retroperitoneal lymph nodes. Urinary bladder: The urinary bladder appears mildly thickened but is incompletely distended. Reproductive: No acute findings. Bones/joints: No pertinent acute abnormality seen. Soft tissues: Small fat containing umbilical hernia. IMPRESSION: 1. Cirrhosis with evidence for portal hypertension. 2. Left hydroureteronephrosis. Suspect left ureterovesical junction calculus. Differential considerations include recent stone passage, obstruction by a non radiopaque lesion. Clinical correlation advised. 3. Areas of colonic thickening, may be due to liver disease and/or colitis. Clinical correlation advised. 4. Additional findings as above. Dictated and Authenticated by: Lucinda Osorio MD. Orderin Crispin Smith MD
[2025-05-21 04:28] LABS: Glucose Negative (Negative)
[2025-05-21 04:35] LABS: C & S Indicated? Yes; WBC 20-50 HPF (0-5)
[2025-05-21] MEDS: cefTRIAXone 1 GM/50 ML BAG IVPB (04:44)
--- NOTE | 2025-05-21 16:47 | W.ED.FU ---
Date of service: 05/21/25 Time of Service: 16:47 Follow Up Plan: This patient was in the emergency department earlier today. He was transferred to [facility]. There was over read on his CT: significant amount of ascites in the abdomen and pelvis which not previously present two days ago. Suspect that this may be related to the cirrhotic liver, splenomegaly and portal venous hypertension here. I have asked health community development officer Hallie to fax his entire CT result to [facility].
--- NOTE | 2025-05-21 17:02 | NUR.NOTE ---
At Dr. Williamson's request overread of CT faxed to [facility] fax # [phone] Note:
--- NOTE | 2025-05-23 09:33 | NUR.NOTE ---
Accessed Pt chart to see if Pt was given antibiotics. Pt was transferred to [place]. Specimen form was given to Providers
== END 2025-05-21 08:30 | disposition short-term general hospital (02) ==
PROVIDERS: Emergency Provider Emergency Medicine; PCP Student in an Organized Health Care Education/Training Program
DX: N13.39 Other hydronephrosis (principal); N39.0 Urinary tract infection, site not specified; K64.8 Other hemorrhoids; R10.32 Left lower quadrant pain; R32 Unspecified urinary incontinence; R26.9 Unspecified abnormalities of gait and mobility; Z85.51 Personal history of malignant neoplasm of bladder; Z85.46 Personal history of malignant neoplasm of prostate; N18.9 Chronic kidney disease, unspecified
CPT/HCPCS: 99285 ×2; 96375; 80053; 82805; 83690; 96361; 96365; 74176; 81003; 81015; 83605; 85025; 87086; J0131; J0696

== ENCOUNTER 2025-06-08 06:32 | Emergency (ER) | payer MEDICARE, SELFPAY ==
[2025-06-08] VITALS (21 sets, daily range): BP systolic 108–157; BP diastolic 49–107; PULSE 59–83; RESP 16–18; TEMP 36.4; O2SAT 96–98
--- NOTE | 2025-06-08 06:30 | DI.CT_ITS ---
Exam(s) CT ABDOMEN PELVIS WO EXAM: CT ABDOMEN PELVIS WO CLINICAL HISTORY: hematuria. TECHNIQUE: Imaging Protocol: Axial computed tomography images with coronal and sagittal reformatted images were created and reviewed. COMPARISON: CT CT ABDOMEN PELVIS WO from 05/19/[address] ABDOMEN PELVIS WO from 05/21/2025 FINDINGS: ABDOMEN: Lung Bases: Cardiomegaly. There is pulmonary fibrosis in the lung bases. Liver: There is a lobulated contour of the liver suggesting hepatic cirrhosis. No measurable mass. Gallbladder and biliary tract: There is cholelithiasis again seen. No biliary ductal dilatation. Pancreas: Normal density, no abnormal calcifications or inflammatory process. Spleen: Splenomegaly. Kidneys: Normal size, contour and axis.There has been interval placement of a left nephroureteral stent. No stone is seen along the course of the ureter. There is no hydronephrosis. No masses seen. There is malrotation of the left kidney again noted. Adrenal glands: No mass is seen. Lymph nodes: Within normal limits. Abdominal Aorta: Abdominal portion non-dilated. Atherosclerotic calcification is present. PELVIS: Bladder:Symmetric distention, no gross wall thickening. Bowel: No obstruction or bowel wall thickening. The stomach is incompletely distended limiting evaluation. There is a moderate amount of stool throughout the colon. There is no evidence of appendicitis. Peritoneal cavity: There is a stable amount of abdominal pelvic ascites. No free air. Reproductive organs: Radiotherapy seeds are seen in the prostate gland. Bones: Within normal limits for the patient's age. Soft Tissues: There is a small fat containing umbilical hernia. IMPRESSION: 1. Interval placement of a left nephroureteral stent. It is in appropriate position. There is no evidence of hydronephrosis. 2. Stable abdominal pelvic ascites. 3. No acute abdominal or pelvic process. RADIATION DOSE DELIVERED: 566.68mGy.cm Total DLP DATA REPOSITORY: All CT scans at this facility are submitted to the National Radiology Data Registry (NRDR) Dose Index Registry (DIR) with the [employer] (ACR). RADIATION OPTIMIZATION: All CT scans at this facility use at least one of these dose optimization techniques: automated exposure control; mA and/or kV adjustment per patient size (includes targeted exams where dose is matched to clinical indication); or iterative reconstruction.
--- NOTE | 2025-06-08 06:55 | W.ED.GENAD ---
Discharge Plan Discharge Details Chief Complaint: Urinary Clinical Impression: Hematuria Primary Care Provider: Ulices Simpson ED Provider: Saúl Parikh Home Meds and New Rx's Prescriptions: No Action chlorthalidone 25 mg tablet 25 mg PO Q OTHER DAY Patient Comments: Pt now takes 25mg tablet Q other day by mouth once a day 11/22/24 magnesium oxide 250 MG tablet 500 mg PO DAILY AM Spiriva Respimat 2.5 mcg/actuation mist 2 puff inhalation DAILY ferrous sulfate 325 mg (65 mg iron) tablet 325 mg PO Q OTHER DAY cyanocobalamin (vitamin B-12) [Vitamin B-12] 500 mcg Tablet 1,000 mcg PO DAILY Qty: 30 0RF thiamine mononitrate (vit B1) [Vitamin B-1 (mononitrate)] 100 mg Tablet 100 mg PO DAILY Qty: 30 0RF albuterol sulfate 8.5 GM HFA aerosol inhaler 2 puff Inhalation Q4H PRN Patient Comments: Ventolin docusate sodium [Colace] 100 mg capsule 200 mg PO DAILY ondansetron 4 mg tablet,disintegrating 4 mg PO Q6H PRN (Reason: nausea and vomiting) Qty: 30 0RF calcium carbonate-vitamin D3 [Calcium 600 + D(3)] 600 mg calcium- 200 unit Capsule 1 cap PO DAILY losartan 100 mg tablet 100 mg PO DAILY mirabegron [Myrbetriq] 25 mg tablet extended release 24 hr 25 mg PO DAILY omeprazole 20 mg capsule,delayed release(DR/EC) 40 mg PO DAILY Qty: 0 0RF acetaminophen [Tylenol Extra Strength] 500 mg tablet 500 mg PO Q6H PRN HPI General Date/Time Provider Initiated Documentation: 06/08/25 06:40. HPI Narrative: 84-year-old male with a past medical history of Brown, chronic kidney disease, COPD, GERD, prostate and bladder cancer with transurethral resection of bladder mass and instillation of Mitomycin-C into the bladder earlier this month, who presents today for evaluation of abdominal pain and hematuria. Patient was seen here and assessed in the emergency department about 3 weeks ago. At that time he was having bladder pain and hematuria. CT scan was performed which showed suspected obstruction versus radiolucent stone. He was transferred to [facility], and therapy was performed, however it is not overly clear to the patient what was done. We are still pending results from [facility] at this time. He presents again today with complaint of hematuria and abdominal pain. He states that it started yesterday. It is achy in his lower abdomen. His blood is bright red in the urine. He denies fever or chills. No vomiting or diarrhea. He is not on blood thinners. No other complaints at this time. Related Data Home Medications ?Medication ?Instructions ?Recorded ?Confirmed magnesium oxide 500 mg PO DAILY AM 02/25/17 06/08/25 calcium 600 mg (as 1 cap PO DAILY 09/03/18 06/08/25 carbonate)-vitamin D3 5 mcg (200 unit) capsule (Calcium 600 + D(3)) tiotropium bromide 2.5 2 puff inhalation DAILY 05/31/21 06/08/25 mcg/actuation mist for inhalation (Spiriva Respimat) losartan 100 mg tablet 100 mg PO DAILY 10/08/23 06/08/25 mirabegron 25 mg tablet,extended 25 mg PO DAILY 10/08/23 06/08/25 release 24 hr (Myrbetriq) omeprazole 20 mg capsule,delayed 40 mg (2 x 20 mg) PO DAILY #0 caps 10/10/23 06/08/25 release acetaminophen 500 mg tablet 500 mg PO Q6H PRN 02/19/24 06/08/25 (Tylenol Extra Strength) chlorthalidone 25 mg tablet 25 mg PO Q OTHER DAY 03/11/24 06/08/25 cyanocobalamin (vitamin B-12) 500 1,000 mcg (2 x 500 mcg) PO DAILY 09/06/24 06/08/25 mcg tablet (Vitamin B-12) #30 tabs thiamine mononitrate (vit B1) 100 100 mg PO DAILY #30 tabs 09/06/24 06/08/25 mg tablet (Vitamin B-1 (mononitrate)) albuterol sulfate 90 mcg/actuation 2 puff inhalation Q4H PRN 11/23/24 06/08/25 aerosol inhaler ferrous sulfate 325 mg (65 mg 325 mg PO Q OTHER DAY 12/06/24 06/08/25 iron) tablet ondansetron 4 mg disintegrating 4 mg PO Q6H PRN nausea and 05/19/25 06/08/25 tablet vomiting #30 tabs docusate sodium 100 mg capsule 200 mg PO DAILY 06/07/25 06/08/25 (Colace) Previous Rx's ?Medication ?Instructions ?Recorded omeprazole 20 mg capsule,delayed 40 mg (2 x 20 mg) PO DAILY #0 caps 10/10/23 release cyanocobalamin (vitamin B-12) 500 1,000 mcg (2 x 500 mcg) PO DAILY 09/06/24 mcg tablet (Vitamin B-12) #30 tabs thiamine mononitrate (vit B1) 100 100 mg PO DAILY #30 tabs 09/06/24 mg tablet (Vitamin B-1 (mononitrate)) ondansetron 4 mg disintegrating 4 mg PO Q6H PRN nausea and 05/19/25 tablet vomiting #30 tabs Allergies Allergy/AdvReac Type Severity Reaction Status Date / Time ATUL Inhibitors AdvReac cough Verified 06/08/25 06:55 General Stated Complaint: Urinary MANGO: 3 Exam Narrative Exam Narrative: 1.Const: Well-nourished, Well-developed, appearing stated age 2.Eyes: PERRL, no conjunctival injection, and symmetrical lids. 3.ENT: Atraumatic external nose and ears. Moist MM. Neck: Symmetric, trachea midline, No thyromegaly. 4.CVS: +S1/S2, Peripheral pulses 2+ and equal in all extremities. Brisk capillary refill in all extremities. 5.RESP: Unlabored respiratory effort. Clear to auscultation bilaterally. No wheezes rales or rhonchi 6.GI: Soft, Nondistended, No hepatosplenomegaly. No guarding or rebound. Unremarkable genital exam. No blood at the urethral meatus. Mild tenderness on palpation of the lower abdomen. 7.MSK: Normocephalic/Atraumatic, Extremities w/o deformity or ttp No cyanosis or clubbing, Normal movement of all extremities 8.Skin: Warm, Dry. No rashes or lesions. 9.Neuro: home builder II-XII grossly intact. Sensation grossly intact, no focal neurologic deficits. 10.Psych: (AAO) x3. Appropriate mood and affect Course Vital Signs Vital signs: Vital Signs Temperature 36.4 C L 06/08/25 06:34 Pulse 83 06/08/25 06:34 Respiratory Rate 16 06/08/25 06:34 Blood Pressure 152/73 H 06/08/25 06:34 Pulse Oximetry 96 06/08/25 06:34 Temperature 36.4 C L 06/08/25 06:34 Temperature Source Tympanic 06/08/25 06:34 Pulse 83 06/08/25 06:34 Respiratory Rate 16 06/08/25 06:34 Blood Pressure 152/73 H 06/08/25 06:34 Pulse Oximetry 96 06/08/25 06:34 Pain Level 5 06/08/25 06:34 Medical Decision Making 84-year-old male with a past medical history of Brown, chronic kidney disease, COPD, GERD, prostate and bladder cancer with transurethral resection of bladder mass and instillation of Mitomycin-C into the bladder earlier this month, who presents today for evaluation of abdominal pain and hematuria. Patient was seen here and assessed in the emergency department about 3 weeks ago. At that time he was having bladder pain and hematuria. CT scan was performed which showed suspected obstruction versus radiolucent stone. He was transferred to [facility], and therapy was performed, however it is not overly clear to the patient what was done. We are still pending results from [facility] at this time. He presents again today with complaint of hematuria and abdominal pain. He states that it started yesterday. It is achy in his lower abdomen. His blood is bright red in the urine. He denies fever or chills. No vomiting or diarrhea. He is not on blood thinners. No other complaints at this time. Exam demonstrates a normal genital exam, no blood at the urethral meatus. Vital signs stable. Mild lower abdominal pain and tenderness on palpation. Differential includes urinary obstruction, infection, kidney stone, low platelets causing bleeding. We we will get CT imaging, check the patient's INR, check hemoglobin and platelet levels, monitor closely and reassess. Patient will be signed out to my colleague Dr. Williamson for follow-up on labs and imaging. Quality:SDOH Health Related Social Needs: Health related social needs lonely/isolated PFSH All Active Problems (Updated 06/08/25 @ 07:18 by Saúl Parikh DO) Hematuria (Acute) Acute UTI (Acute) Hydronephrosis, left (Acute) Internal hemorrhoid (Acute) Urinary incontinence (Acute) Abnormal gait (Acute) Right carpal tunnel syndrome (Acute) Abdominal pain (Acute) Abnormal head CT (Acute) BROWN (nonalcoholic steatohepatitis) (Chronic) Elevated INR (Acute) Chronic blood loss anemia (Chronic) Chronic radiation proctitis (Chronic) Anal stricture (Acute) Mixed hearing loss, bilateral (Acute) Thrombocytopenia (Chronic) Medical History Anemia Bladder cancer S/P radiation therapy Prostate cancer Hypertension History of prostate cancer CKD (chronic kidney disease), stage III Restrictive lung disease 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 Father Cardiovascular disease Brother No problems noted. 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
[2025-06-08] MEDS: ACETAMINOPHEN 1,000 MG/100 ML BAG 400 MG (07:25)
[2025-06-08 07:28] LABS: Abs Immature Grans 0.01 10^3/uL (0.0-0.06); HCT 26.6 % (40.0-50.0); HGB 9.0 g/dL (13.5-17.5); Immature Grans % 0.4 %; MCH 31.9 pg (27.0-33.0); MCHC 33.8 % (32.0-36.0); MCV 94 fL (80-95); MPV 12.7 fL (8.0-11.0); RBC 2.82 10^6/uL (4.36-5.78); RDW 13.3 % (11.8-14.1); RDW-SD 46.4 fL; WBC 2.75 10^3/uL (4.4-10.8)
[2025-06-08 07:44] LABS: INR 1.5 (0.9-1.1); PTT Activated 27.6 sec (20.6-30.2); Prothrombin Time 14.4 sec (9.1-11.1)
[2025-06-08 07:46] LABS: Platelet Count 44 10^3/uL (130-400)
[2025-06-08 07:47] LABS: ALT 20 U/L (16-63); AST 31 U/L (15-37); Albumin 2.0 g/dL (3.4-5.0); Alkaline Phosphatase 214 U/L (46-116); Anion Gap 10.0 mmol/L (3-11); BUN 21 mg/dL (7-18); Bilirubin, Total 0.8 mg/dL (0.2-1.0); CO2 22.0 mmol/L (21.0-32.0); Calcium 8.2 mg/dL (8.5-10.1); Chloride 107 mmol/L (98-107); Estimated GFR 67.02 (mL/min/1.73m2); Glucose 113 mg/dL (74-106); Potassium 4.5 mmol/L (3.5-5.1); RBC Morphology Normal; Sodium 139 mmol/L (136-145); Total Protein 7.2 g/dL (6.4-8.2)
--- NOTE | 2025-06-08 08:29 | ED.PROG_ITS ---
Date of service: 06/08/25 Time of Service: 08:30 Medical Decision Making I received signout on this patient with and lower abdominal pain, hematuria. Pending CT imaging and laboratory workup. CBC show leukopenia, worsened normocytic anemia. Persistent significant thrombocytopenia. No JESUS. No acute electrolyte abnormalities. 4:37 PM Patient patient's urinalysis is reassuring. He felt improved. He had reassuring vitals. We discussed that he should return if he had worsening pain. His CT scan shows was reassuring. His stent is in good position. Quality:SDOH Health Related Social Needs: Health related social needs lonely/isolated Discharge Plan Disposition Patient Disposition: Home Discharge Details Clinical Impression: Hematuria Primary Care Provider: Ulices Simpson ED Provider: Edgar Williamson [place] Meds and New Rx's Prescriptions: Continued chlorthalidone 25 mg tablet 25 mg PO Q OTHER DAY Patient Comments: Pt now takes 25mg tablet Q other day by mouth once a day 11/22/24 magnesium oxide 250 MG tablet 500 mg PO DAILY AM Spiriva Respimat 2.5 mcg/actuation mist 2 puff inhalation DAILY ferrous sulfate 325 mg (65 mg iron) tablet 325 mg PO Q OTHER DAY cyanocobalamin (vitamin B-12) [Vitamin B-12] 500 mcg Tablet 1,000 mcg PO DAILY Qty: 30 0RF thiamine mononitrate (vit B1) [Vitamin B-1 (mononitrate)] 100 mg Tablet 100 mg PO DAILY Qty: 30 0RF albuterol sulfate 8.5 GM HFA aerosol inhaler 2 puff Inhalation Q4H PRN Patient Comments: Ventolin docusate sodium [Colace] 100 mg capsule 200 mg PO DAILY ondansetron 4 mg tablet,disintegrating 4 mg PO Q6H PRN (Reason: nausea and vomiting) Qty: 30 0RF calcium carbonate-vitamin D3 [Calcium 600 + D(3)] 600 mg calcium- 200 unit Capsule 1 cap PO DAILY losartan 100 mg tablet 100 mg PO DAILY mirabegron [Myrbetriq] 25 mg tablet extended release 24 hr 25 mg PO DAILY omeprazole 20 mg capsule,delayed release(DR/EC) 40 mg PO DAILY Qty: 0 0RF acetaminophen [Tylenol Extra Strength] 500 mg tablet 500 mg PO Q6H PRN Discharge Instructions Additional Instructions: You are seen in the emergency department for the blood in your urine. You have no signs of urinary tract infection. If you develop worsening pain do not have any urine for 8 or more hours while awake or if you have any other concerns please return to the emergency department. Otherwise please follow-up with your urologist. Stand Alone Forms: Work Release Discharge Data Discharge Date/Time-TO BE ENTERED AT DEPARTURE: 06/08/25 11:24
[2025-06-08 10:43] LABS: Glucose Negative (Negative)
[2025-06-08 10:45] LABS: C & S Indicated? No; RBC >50 HPF (0-2)
== END 2025-06-08 11:24 | disposition home or self-care (01) ==
PROVIDERS: Student in an Organized Health Care Education/Training Program; Emergency Provider Emergency Medicine; PCP Student in an Organized Health Care Education/Training Program
DX: R31.9 Hematuria, unspecified (principal); R10.30 Lower abdominal pain, unspecified; I10 Essential (primary) hypertension; Z60.8 Other problems related to social environment
CPT/HCPCS: 99284 ×2; 96372; 36415; 00123; 80053; 86850; 86900; 86901; 74176; 81003; 81015; 85025; 85610; 85730; J0131

== ENCOUNTER → 2025-06-10 14:36 | Outpatient (BNVA) | payer MEDICARE, SELFPAY | PROVIDERS: PCP Student in an Organized Health Care Education/Training Program; Referring Provider Student in an Organized Health Care Education/Training Program; Visit Provider Urology | DX: N13.30 Unspecified hydronephrosis (principal); Z85.51 Personal history of malignant neoplasm of bladder; Z85.46 Personal history of malignant neoplasm of prostate | CPT/HCPCS: 99215 ==

== ENCOUNTER 2025-06-13 08:54 | Day surgery (SDC) | payer MEDICARE, SELFPAY ==
[2025-06-13] VITALS (17 sets, daily range): BP systolic 97–159; BP diastolic 36–92; PULSE 67–81; RESP 16–24; TEMP 36.2–36.6; O2SAT 97–98; BMI 25.5
[2025-06-13] MEDS: Ciprofloxacin 500 MG TAB PO (09:27)
[2025-06-13] MEDS: Lactated Ringers 1,000 ML 80 ML IV (09:43)
--- NOTE | 2025-06-13 09:43 | W.PM.HP.N ---
Date of service: 06/13/25 Time of Service: 09:43 Assessment and Plan Assessment and plan (1) Hematuria: Status: Acute (2) Hydronephrosis, left: Status: Acute Assessment and plan: We would do a cystoscopy and evacuate any blood clots that are present in the bladder. I will cauterize any obvious source of bleeding. We should safely be able to remove his ureteral stent. History of Present Illness History of Present Illness Chief Complaint: Hematuria Narrative: This is an 84-year-old gentleman who has a history of urothelial cell carcinoma of the bladder. He also has a history of prostate cancer. He recently underwent cystoscopy transurethral resection of a lesion in the bladder. The surgical pathology actually showed inflammatory tissue with no evidence of malignancy. He had edema of the ureteral orifice following the procedure requiring a ureteral stent. He is now having gross hematuria with clots. He presents for cystoscopy with clot evacuation and possible fulguration. We will plan to remove his ureteral stent at the same time. Review of Systems Narrative: No fevers or chills No vision change or dysphasia No diabetes or thyroid dysfunction No shortness of breath, cough or hemoptysis No chest pain or palpitations Radiation proctitis. No nausea, vomiting, hepatitis, ulcers, jaundice No seizures, strokes or peripheral neuropathy Anemia. No bleeding disorders or anemia No gout PFSH All Active Problems Hematuria (Acute) Acute UTI (Acute) Hydronephrosis, left (Acute) Internal hemorrhoid (Acute) Urinary incontinence (Acute) Abnormal gait (Acute) Right carpal tunnel syndrome (Acute) Abdominal pain (Acute) Abnormal head CT (Acute) SPENCER (nonalcoholic steatohepatitis) (Chronic) Elevated INR (Acute) Chronic blood loss anemia (Chronic) Chronic radiation proctitis (Chronic) Anal stricture (Acute) Mixed hearing loss, bilateral (Acute) Thrombocytopenia (Chronic) Medical History Anemia Bladder cancer S/P radiation therapy Prostate cancer Hypertension History of prostate cancer CKD (chronic kidney disease), stage III Restrictive lung disease 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 Father Cardiovascular disease Brother No problems noted. 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 Do you feel safe at home: Yes Additional Social history: Live alone Meds Allergies and Home Medications Allergies Allergy/AdvReac Type Severity Reaction Status Date / Time ATUL Inhibitors AdvReac cough Verified 06/13/25 09:15 Home Medications ?Medication ?Instructions ?Recorded ?Confirmed ?Type magnesium oxide 500 mg PO DAILY AM 02/25/17 06/13/25 History calcium 600 mg (as 1 cap PO DAILY 09/03/18 06/13/25 History carbonate)-vitamin D3 5 mcg (200 unit) capsule (Calcium 600 + D(3)) tiotropium bromide 2.5 2 puff inhalation DAILY 05/31/21 06/13/25 History mcg/actuation mist for inhalation (Spiriva Respimat) losartan 100 mg tablet 100 mg PO DAILY 10/08/23 06/13/25 History mirabegron 25 mg tablet,extended 25 mg PO DAILY 10/08/23 06/13/25 History release 24 hr (Myrbetriq) omeprazole 20 mg capsule,delayed 40 mg (2 x 20 mg) PO DAILY #0 caps 10/10/23 06/13/25 Rx release acetaminophen 500 mg tablet 500 mg PO Q6H PRN 02/19/24 06/13/25 History (Tylenol Extra Strength) chlorthalidone 25 mg tablet 25 mg PO Q OTHER DAY 03/11/24 06/13/25 History cyanocobalamin (vitamin B-12) 500 1,000 mcg (2 x 500 mcg) PO DAILY 09/06/24 06/13/25 Rx mcg tablet (Vitamin B-12) #30 tabs thiamine mononitrate (vit B1) 100 100 mg PO DAILY #30 tabs 09/06/24 06/13/25 Rx mg tablet (Vitamin B-1 (mononitrate)) albuterol sulfate 90 mcg/actuation 2 puff inhalation Q4H PRN 11/23/24 06/13/25 History aerosol inhaler ferrous sulfate 325 mg (65 mg 325 mg PO Q OTHER DAY 12/06/24 06/13/25 History iron) tablet ondansetron 4 mg disintegrating 4 mg PO Q6H PRN nausea and 05/19/25 06/13/25 Rx tablet vomiting #30 tabs docusate sodium 100 mg capsule 200 mg PO DAILY 06/07/25 06/13/25 History (Colace) Exam Const General: cooperative Neck Neck: supple Resp Effort & Inspection: normal respiratory effort Auscultation: clear to auscultation bilaterally Cardio Rate: regular rate Rhythm: regular rhythm GI Palpation: soft and no masses Neuro General: patient alert, patient awake and patient oriented x3 Results Last Vital Signs Temp 36.6 C 06/13/25 09:15 Pulse 81 06/13/25 09:15 Resp 16 06/13/25 09:15 BP 148/92 H 06/13/25 09:15 Pulse Ox 98 06/13/25 09:15 Time Spent Time spent with Patient: <40 minutes Time was spent: other
--- NOTE | 2025-06-13 10:11 | W.ANESPRE ---
General Info Date of Service Date Performed: 06/13/25 Height: 5 ft 6 in Weight: 71.8 kg Body Mass Index (BMI): 25.5 Surgical Procedure: Operation Date: 06/13/25 09:40 Proposed Procedure Side Surgeon p Cystoscopy, Stent Removal,Clot Evacuation, Possible Fulgeration Left Lonnie Saxena MD Actual Procedure Side Surgeon p Cystoscopy, Stent Removal,Clot Evacuation, Possible Fulgeration Left Lonnie Saxena MD Pre-Op Diagnosis Post-Op Diagnosis (1) Hydronephrosis, left: (2) Bladder cancer: Meds Allergies and Home Medications Allergies Allergy/AdvReac Type Severity Reaction Status Date / Time ATUL Inhibitors AdvReac cough Verified 06/13/25 09:15 Home Medication ?Medication ?Instructions ?Recorded magnesium oxide 500 mg PO DAILY AM 02/25/17 calcium 600 mg (as 1 cap PO DAILY 09/03/18 carbonate)-vitamin D3 5 mcg (200 unit) capsule (Calcium 600 + D(3)) tiotropium bromide 2.5 2 puff inhalation DAILY 05/31/21 mcg/actuation mist for inhalation (Spiriva Respimat) losartan 100 mg tablet 100 mg PO DAILY 10/08/23 mirabegron 25 mg tablet,extended 25 mg PO DAILY 10/08/23 release 24 hr (Myrbetriq) omeprazole 20 mg capsule,delayed 40 mg (2 x 20 mg) PO DAILY #0 caps 10/10/23 release acetaminophen 500 mg tablet 500 mg PO Q6H PRN 02/19/24 (Tylenol Extra Strength) chlorthalidone 25 mg tablet 25 mg PO Q OTHER DAY 03/11/24 cyanocobalamin (vitamin B-12) 500 1,000 mcg (2 x 500 mcg) PO DAILY 09/06/24 mcg tablet (Vitamin B-12) #30 tabs thiamine mononitrate (vit B1) 100 100 mg PO DAILY #30 tabs 09/06/24 mg tablet (Vitamin B-1 (mononitrate)) albuterol sulfate 90 mcg/actuation 2 puff inhalation Q4H PRN 11/23/24 aerosol inhaler ferrous sulfate 325 mg (65 mg 325 mg PO Q OTHER DAY 12/06/24 iron) tablet ondansetron 4 mg disintegrating 4 mg PO Q6H PRN nausea and 05/19/25 tablet vomiting #30 tabs docusate sodium 100 mg capsule 200 mg PO DAILY 06/07/25 (Colace) Current Visit Medications: Current Medications Generic Name Dose Route Start Last Admin Trade Name Shanna PRN Reason Stop Dose Admin Ciprofloxacin HCl 500 mg 06/13/25 06:00 06/13/25 09:27 Ciprofloxacin 500 Mg Tab PO 06/13/25 23:59 500 mg PREOP MAXIMUS Administration Ringer's Solution 1,000 mls @ 80 mls/hr 06/13/25 06:00 06/13/25 09:43 IV 06/13/25 23:59 80 mls/hr INFUSION MAXIMUS Administration IV Miscellaneous Supplies 1 each 06/13/25 06:00 Iv Access IV 06/13/25 23:59 DIRECTED MAXIMUS Sodium Chloride 0 ml 06/13/25 06:00 Normal Saline Flush 10 Ml Syr IV 06/13/25 23:59 PRN PRN Sodium Chloride 0 ml 06/13/25 06:00 Normal Saline 10 Ml Vial IJ 06/13/25 23:59 DIRECTED PRN Sterile Water 0 ml 06/13/25 06:00 Water,Injection,Sterile 10 Ml Vial IJ 06/13/25 23:59 DIRECTED PRN PFSH Active Problems Active Problems: Problem Status Onset Code Hematuria Acute R31.9 Acute UTI Acute N39.0 Hydronephrosis, left Acute N13.30 Internal hemorrhoid Acute K64.8 Urinary incontinence Acute R32 Abnormal gait Acute R26.9 Right carpal tunnel syndrome Acute G56.01 Abdominal pain Acute R10.[address] Acute R93.0 SPENCER (nonalcoholic steatohepatitis) Chronic K75.81 Elevated INR Acute R79.1 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 Chronic radiation proctitis Chronic K62.7 Anal stricture Acute K62.4 Mixed hearing loss, bilateral Acute H90.6 Thrombocytopenia Chronic D69.6 Medical History Medical History Anemia Bladder cancer S/P radiation therapy Prostate cancer Hypertension History of prostate cancer CKD (chronic kidney disease), stage III Restrictive lung disease 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) PFT impression from August 24, 2018 showed mild restrictive lung disease COPD (chronic obstructive pulmonary disease) GERD (gastroesophageal reflux disease) Otosclerosis of both ears Esophageal varices Cirrhosis of liver Surgical History Surgical History History of ear surgery S/P endoscopic carpal tunnel release (09/09/18) Tobacco Smoking/Tobacco Use Status: Never Alcohol Alcohol Intake: former Year quit: 1994 Substance Use Substance use: Never Substance use type: does not use Vital Signs and Lab Results Vital Signs Most Recent Vital Signs in EMR: Most Recent Vital Signs Temp Pulse Resp BP Pulse Ox 36.6 C 81 16 148/92 H 98 06/13/25 09:15 06/13/25 09:15 06/13/25 09:15 06/13/25 09:15 06/13/25 09:15 Lab Results Blood Type / Crossmatch: Antibody Screen NEGATIVE 06/08/25 Complete Blood Count: WBC, (4.4-10.8) 2.75 10^3/uL L 06/08/25, 07:14 RBC, (4.36-5.78) 2.82 10^6/uL L 06/08/25, 07:14 Hgb, (13.5-17.5) 9.0 g/dL L 06/08/25, 07:14 Hct, (40.0-50.0) 26.6 % L 06/08/25, 07:14 Plt Count, (130-400) 44 10^3/uL L 06/08/25, 07:14 VBG Lactate, (<or=2.0) 1.9 mmol/L 05/21/25, 03:05 Complete Metabolic Panel: Sodium, (136-145) 139 mmol/L 06/08/25, 07:14 Potassium, (3.5-5.1) 4.5 mmol/L 06/08/25, 07:14 Chloride, (98-107) 107 mmol/L 06/08/25, 07:14 Carbon Dioxide, (21.0-32.0) 22.0 mmol/L 06/08/25, 07:14 BUN, (7-18) 21 mg/dL H 06/08/25, 07:14 Creatinine, (0.70-1.30) 1.1 mg/dL 06/08/25, 07:14 Est GFR (CKD-EPI 2020), (mL/min/1.73m2) 67.02 06/08/25, 07:14 Magnesium, (1.8-2.4) 1.5 mg/dL L 05/20/25, 03:09 Calcium, (8.5-10.1) 8.2 mg/dL L 06/08/25, 07:14 Albumin, (3.4-5.0) 2.0 g/dL L 06/08/25, 07:14 Glucose, (74-106) 113 mg/dL H 06/08/25, 07:14 Liver Function Panel: ALT, (16-63) 20 U/L 06/08/25, 07:14 AST, (15-37) 31 U/L 06/08/25, 07:14 Coagulation Panel: INR, (0.9-1.1) 1.5 H 06/08/25, 07:14 PT, (9.1-11.1) 14.4 sec H 06/08/25, 07:14 APTT, (20.6-30.2) 27.6 sec 06/08/25, 07:14 Venous Blood Gas: VBG pH, (7.31-7.41) 7.41 05/21/25, 03:05 VBG pO2 87 mmHg 05/21/25, 03:05 VBG pCO2, (41-51) 25 mmHg L 05/21/25, 03:05 VBG O2 Saturation 98 % 05/21/25, 03:05 VBG HCO3, (23-28) 16 mmol/L L 05/21/25, 03:05 VBG Base Excess, (-2-3) -9 mmol/L L 05/21/25, 03:05 VBG Total CO2, (24-29) 14 mmol/L L 05/21/25, 03:05 Pancreas Panel: Lipase, (<78) 54 U/L 05/21/25, 03:05 Imaging and Studies Imaging and Studies Study information below may be from another EMR and interpreted by another provider. Please see original notes in EMR for more complete details. EKG Summary: 12/08: sinus rhythm Echocardiogram Summary: 10/10/23: EF 58%, no significant valvular lesions Pulmonary Function Summary: 09/03: mild restrictive disease Anesthesia Assessment and Plan Anesthesia History Personal History: No History of Anesthesia Complications Family History: No Family History of Anesthesia Complications Exercise Tolerance Exercise Tolerance: Metabolic Equivalents>4 (difficult to assess in setting of COPD ) Pertinent Negatives Pertinent Negatives: No Symptoms of GERD Cardiac & Pulmonary Exam Cardiac Exam: Normal S1/S2 Heart Sounds Pulmonary Exam: Clear Bilateral Breath Sounds Implantable Cardiac Device Does patient have a Pacemaker or an ICD?: No Airway Exam Known Difficult Airway: No Mallampati Class: 2 Mouth Opening: Normal (> 3cm) Thyromental Distance: Greater than 3 cm Neck Range of Motion: Limited ROM Neck Circumference: Thick Teeth Condition: Removable Dentures/Plates Upper and Edentulous ASA Classification ASA Score: ASA 3 Emergency Case?: No NPO Status NPO Status: NPO Clears >2 hours, Solids >8 hours Anesthesia Plan Resuscitation Status: Full Code Anesthesia Technique: General Anesthesia Airway Planned: Natural Airway Monitors Used: Standard Monitors and SedLine
[2025-06-13] MEDS: Lidocaine 2% Jelly 6 ML SYR (10:39)
--- NOTE | 2025-06-13 10:41 | W.PM.DSUDISC ---
Date of service: 06/13/25 Discharge Plan Disposition Patient Disposition: Home Condition: Stable Discharge Details Reason For Visit: cystoscopy Attending Provider: Lonnie Saxena Primary Care Provider: Ulices Simpson Home Meds and New Rx's Prescriptions: No Action chlorthalidone 25 mg tablet 25 mg PO Q OTHER DAY Patient Comments: Pt now takes 25mg tablet Q other day by mouth once a day 11/22/24 magnesium oxide 250 MG tablet 500 mg PO DAILY AM Spiriva Respimat 2.5 mcg/actuation mist 2 puff inhalation DAILY ferrous sulfate 325 mg (65 mg iron) tablet 325 mg PO Q OTHER DAY cyanocobalamin (vitamin B-12) [Vitamin B-12] 500 mcg Tablet 1,000 mcg PO DAILY Qty: 30 0RF thiamine mononitrate (vit B1) [Vitamin B-1 (mononitrate)] 100 mg Tablet 100 mg PO DAILY Qty: 30 0RF albuterol sulfate 8.5 GM HFA aerosol inhaler 2 puff Inhalation Q4H PRN Patient Comments: Ventolin docusate sodium [Colace] 100 mg capsule 200 mg PO DAILY ondansetron 4 mg tablet,disintegrating 4 mg PO Q6H PRN (Reason: nausea and vomiting) Qty: 30 0RF calcium carbonate-vitamin D3 [Calcium 600 + D(3)] 600 mg calcium- 200 unit Capsule 1 cap PO DAILY losartan 100 mg tablet 100 mg PO DAILY mirabegron [Myrbetriq] 25 mg tablet extended release 24 hr 25 mg PO DAILY omeprazole 20 mg capsule,delayed release(DR/EC) 40 mg PO DAILY Qty: 0 0RF acetaminophen [Tylenol Extra Strength] 500 mg tablet 500 mg PO Q6H PRN Discharge Instructions Additional Instructions: I would expect any bleeding is present after today's cystoscopy should improve by the end of the week Please call the office in about 1 week with a progress report to tell me how the urine stream is and how the bleeding has been - we will figure out the timing of your next cystoscopy at that time Activity:: Activity as Tolerated Shower/Bathe:: 24 hours Diet:: As Tolerated Discharge Orders Discharge Orders: Discharge Order (Routine); Ordered 06/13/25 Ordered By: Lonnie Saxena DS: Diagnosis Discharge Diagnosis (1) Hematuria: Status: Acute (2) Hydronephrosis, left: Status: Acute
--- NOTE | 2025-06-13 10:44 | ROE_ITS ---
Operative Note Operative Note PRE-OP DIAGNOSIS: Hematuria POST-OP DIAGNOSIS: same PROCEDURE: cystoscopy, clot evacuation, left ureteral stent removal SURGEON: Lonnie Saxena ANESTHESIA TYPE: Local By Surgeon and General:No Airway Refer to Anesthesia Record ESTIMATED BLOOD LOSS: 5 PATHOLOGY: none sent COMPLICATIONS: None Patient was transported to: PACU Patient's condition: stable Implants: none Indications: This is an 84-year-old gentleman who has a history of urothelial cell carcinoma of the bladder. He has had previous transurethral resection of visible tumors. He recently had an abnormal area identified on cystoscopy. Transurethral resection the area showed inflammatory changes with no underlying malignancy. The pathology demonstrated significant inflammatory changes. Following the procedure, he developed abdominal pain and left hydronephrosis. He had a stent placed and his pain improved. He then developed gross hematuria with clots. His stent has been in place for about 3 weeks. He presents for stent removal and evacuation of blood clots. Findings: Clots adherent to stent Erythema at the trigone Procedure Description: The patient was given antibiotics and brought to the operating room on 06/13/2025. After successful induction of general anesthesia, he was placed in the dorsal lithotomy position. His genitalia was prepped and draped. 2% Xylocaine jelly was instilled into the urethra to act as a local anesthetic. A 22 [place] rigid cystoscope was passed through the urethra into the bladder. The urethra and bladder were inspected with a 30 degree lens. The pendulous, bulbar membranous urethra's appeared normal with no strictures. The prostatic urethra showed prominent blood vessels but no active bleeding. The bladder neck was entered and the bladder mucosa was inspected. The stent could be seen protruding from the left ureteral orifice. There were multiple clots adherent to the stent. The stent was grasped and alligator forceps and removed in its entirety. The cystoscope was then reintroduced and using a Elliot syringe, we evacuated multiple blood clots. We inspected the bladder after the clots had been removed and there was significant hyperemia and erythema on the trigone and at the bladder neck but not up at the dome of the bladder. No active bleeding was seen so no cauterization was performed. The bladder was emptied and the cystoscope was withdrawn. The patient tolerated this procedure well with no complications. He was taken to the recovery room in stable condition. Date of Procedure: 06/13/25
--- NOTE | 2025-06-13 11:31 | W.ANESPOSTOP ---
Postoperative Evaluation Date, Time and Location Date Performed: 06/13/25 Time Performed: 11:31 Patient Location: Day Surgery Unit Vital Signs Most Recent Imported Vital Signs: Most Recent Vital Signs Temp Pulse Resp BP Pulse Ox 36.2 C L 67 18 109/40 L 98 06/13/25 11:03 06/13/25 11:06 06/13/25 11:06 06/13/25 11:06 06/13/25 11:06 Pain Score Most Recent Pain Score: Most Recent Pain Score Pain Level 0 06/13/25 11:03 Assessment Mental Status: Awake (Alert & Oriented to Patient Baseline) (Cognitive baseline) Airway and Respiratory Function: Patent airway with normal (patient baseline) respiratory exam Cardiovascular Function: Hemodynamically Stable Hydration Status: Adequately Hydrated Nausea & Vomiting: No Nausea or Vomiting Pain: Pt. Denies Any Pain Peripheral Nerve Block: Patient did not receive a nerve block
[2025-06-13] MEDS: Phenazopyridine 200 MG TAB PO (11:35)
== END 2025-06-13 12:35 | disposition home or self-care (01) ==
PROVIDERS: PCP Student in an Organized Health Care Education/Training Program; Visit Provider Urology
PROC: 0TJB8ZZ Inspection of Bladder, Via Natural or Artificial Opening Endoscopic (ICD-10-PCS; CPT 52000; principal; 2025-06-13 09:30)
DX: T83.83XA Hemorrhage due to genitourinary prosthetic devices, implants and grafts, initial encounter (principal); N13.30 Unspecified hydronephrosis; N32.89 Other specified disorders of bladder; C67.9 Malignant neoplasm of bladder, unspecified; N18.30 Chronic kidney disease, stage 3 unspecified; J44.9 Chronic obstructive pulmonary disease, unspecified; K74.60 Unspecified cirrhosis of liver; I12.9 Hypertensive chronic kidney disease with stage 1 through stage 4 chronic kidney disease, or unspecified chronic kidney disease
CPT/HCPCS: 52001; 52310; J1100; J2003; J2405; J2704

== ENCOUNTER 2025-07-04 02:29 | Outpatient (CLI) | payer MEDICARE, SELFPAY ==
--- NOTE | 2025-07-04 08:30 | DI.US_ITS ---
APPROVED REPORT EXAM: Comprehensive 2D, Doppler, and color-flow Echocardiogram Patient Location: Out-Patient Dental Hygiene Teacher: Renée Bashir RDCS (AE) Indications: 2/6 systolic murmur, aortic valve thickening, MR, TR, H/O Cirrhosis, Edema Other Information Study Quality: Adequate Conclusion Normal left ventricular wall thickness and chamber size. Ejection fraction is 60%. Wall motion is normal Normal right ventricular size and function Mildly dilated left atrium. Normal right atrial size Aortic valve is trileaflet and mildly sclerotic without stenosis or regurgitation Normal mitral valve with mild regurgitation Wall motion Left Ventricle The left ventricle is normal size. The left ventricular systolic function is normal. The left ventricular ejection fraction is within the normal range. There is normal left ventricular wall thickness. There is normal LV segmental wall motion. There is no ventricular septal defect visualized. LVEF is 60%. Right Ventricle The right ventricle is normal size. The right ventricular systolic function is normal. Atria Left atrium is mildly dilated. The right atrium size is normal. The interatrial septum is intact with no evidence for an atrial septal defect. Aortic Valve The Aortic valve is mildly sclerotic. Aortic valve is trileaflet. No hemodynamically significant valvular aortic stenosis. No aortic regurgitation is present. Mitral Valve The mitral valve is normal in structure. No evidence of mitral valve stenosis. Mild mitral regurgitation. Tricuspid Valve The tricuspid valve is normal in structure. There is no tricuspid valve stenosis. Trace tricuspid regurgitation. Unable to assess PA pressure. Pulmonic Valve The pulmonary valve is normal in structure. There is no pulmonic valvular stenosis. There is no pulmonic valvular regurgitation. Great Vessels The aortic root is normal in size. Ascending aorta is not well visualized. Aortic arch is not well visualized. IVC is normal in size and collapses >50% with inspiration. Pericardium There is no pericardial effusion. 2D Dimensions IVSD d PLAX 0.91 cm M: 0.6-1.2 Ao Root d 2.92 cm M: 3.1 - 3.7 LVPW d PLAX 0.90 cm M: 0.6 - 1.2 LVID d PLAX 4.40 cm M: 4.2 - 5.8 LVDs 3.10 cm M: 2.5 - 4.0 LV EF Teichholz 57.0 % FS 29.69 % LV EDV (Teich) 86.0 mL LV ESV (Teich) 37.0 mL M-Mode TAPSE 3.01 cm (M/F) >1.7 Auto EF LV EDV A4C 122.0 mL LV EDV A2C 140.8 mL LV EDV BP 132.0 mL LV ESV A4C 49.6 mL LV ESV A2C 58.4 mL LV ESV BP 53.4 mL LVEF(%) A4C 59.4 % LVEF(%) A2C 58.6 % LVEF(%) BP 59.5 % LV SV A4C 72.4 ml LV SV A2C 82.4 ml LV SV BP 78.6 ml LV CO A4C 5.4 L/min LV CO A2C 5.7 L/min LV CO BP 5.6 L/min HR A4C 75.16 BPM HR A2C 69.50 BPM LV EDV Index (BP) LA Volume LA Length A4C 6.0 cm LA Length A2C 5.9 cm LA Area A4C s 21.63 cm2 LA Area A2C s 22.81 cm2 LA Vol A4C A-L 65.86 mL LA Vol A2C A-L 75.05 mL LA Vol Biplane A-L 71.2 mL LA Vol/BSA A4C A-L LA Vol/BSA A2C A-L LA Vol/BSA BP A-L 40.7 mL/m2 LA Vol A4C MOD 61.6 mL LA Vol A2C MOD 71.1 mL LA Vol BP MOD 66.9 mL RA Volume RA Area A4C 14.7 cm2 RA ESV A4C (A-L) 36.8mL RA Vol/BSA A4C A-L RA Length A4C 5.0 cm RA ESV A4C (MOD) 35.0mL LV Diastology MV E' medial 0.087 (>0.07 m/s) MV E Vmax 1.07 (0.4-1.3 m/s) MV E/E' MED 12.23 (<14) MV A Vmax 1.15 (0.4-1.3 m/s) MV E' lateral 0.092 (>0.1 m/s) E/A Ratio 0.9 MV E/E' LAT 11.52 (<14) MV E' Average 0.090 m/s MV E/E'(average) 11.87 Aortic Valve AoV Vmax 2.09 m/s LVOT Vmax 1.52 m/s AoV Peak Grad 17.5 mmHg LVOT Peak Grad 9.2 mmHg AoV Area (Vmax) 2.23 cm2 LVOT VTI 0.335 m AoV VTI 0.452 m LVOT Mean Grad 5.1 mmHg AoV Mean Rod. 1.36 m/s LVOT SV 102.57 mL AoV Mean Grad 8.6 mmHg LVOT Diam s 1.95 cm AoV Area (VTI) 2.27 cm2 AV Regurg Peak Gr. 17.49 mmHg Velocity Ratio 0.73 Mitral Valve MV DT 332 (160-240 msec) MV Vmax TIPS 1.03 m/s MV Mean Grad 2.3 (<2mmHg) MV VTI 0.385 m Pulmonary Valve PV Vmax 1.28 (0.5-1.5 m/s) RVOT Vmax 1.08 m/s PV Peak Grad 6.5 mmHg RVOT Peak Gr. 4.7 mmHg PV Mean Rod 0.89 m/s RVOT VTI 0.259 m PV Mean Grad 3.6 mmHg RVOT Mean Gr. 2.6 mmHg Tricuspid Valve TV S' 0.19 m/s
== END 2025-07-04 02:49 ==
LOC: DI 02:29
PROVIDERS: PCP Student in an Organized Health Care Education/Training Program; Visit Provider Internal Medicine Cardiovascular Disease
DX: R01.1 Cardiac murmur, unspecified (principal); I35.1 Nonrheumatic aortic (valve) insufficiency
CPT/HCPCS: 93306

== ENCOUNTER 2025-07-25 14:35 | Outpatient (REF) | payer MEDICARE, SELFPAY ==
[2025-07-25 15:58] LABS: Abs Immature Grans 0.00 10^3/uL (0.0-0.06); HCT 26.9 % (40.0-50.0); HGB 9.2 g/dL (13.5-17.5); Immature Grans % 0.0 %; MCH 32.2 pg (27.0-33.0); MCHC 34.2 % (32.0-36.0); MCV 94 fL (80-95); MPV 12.5 fL (8.0-11.0); RBC 2.86 10^6/uL (4.36-5.78); RDW 13.0 % (11.8-14.1); RDW-SD 44.7 fL; WBC 3.09 10^3/uL (4.4-10.8)
[2025-07-25 16:17] LABS: Platelet Count 45 10^3/uL (130-400)
[2025-07-25 16:18] LABS: RBC Morphology Normal
[2025-07-25 16:36] LABS: Ferritin 86 ng/mL (26-388); Folate 5.9 ng/mL (8.6-20.0); Vitamin B12 761 pg/mL (193-986)
[2025-07-25 16:53] LABS: Iron 251 ug/dL (65-175); Total Iron Binding Capacity 213 ug/dL (250-450)
== END 2025-07-25 14:36 | disposition home or self-care (01) ==
LOC: NCHCN 14:35
PROVIDERS: PCP Student in an Organized Health Care Education/Training Program; Visit Provider Student in an Organized Health Care Education/Training Program
DX: D64.9 Anemia, unspecified (principal)
CPT/HCPCS: 82607; 82728; 82746; 83540; 83550; 85025

== ENCOUNTER 2025-07-27 16:28 | Outpatient (REF) | payer MEDICARE, SELFPAY ==
[2025-07-27 19:08] LABS: Glucose Negative (Negative)
[2025-07-27 19:19] LABS: C & S Indicated? No
== END 2025-07-27 16:29 | disposition home or self-care (01) ==
LOC: NCHCN 16:28
PROVIDERS: PCP Student in an Organized Health Care Education/Training Program; Visit Provider Student in an Organized Health Care Education/Training Program
DX: Z87.448 Personal history of other diseases of urinary system (principal)
CPT/HCPCS: 81003; 81015

== ENCOUNTER 2025-08-25 11:23 | Outpatient (REF) | payer MEDICARE, SELFPAY ==
[2025-08-25 14:53] LABS: Abs Immature Grans 0.01 10^3/uL (0.0-0.06); HCT 27.1 % (40.0-50.0); HGB 9.3 g/dL (13.5-17.5); Immature Grans % 0.4 %; MCH 32.1 pg (27.0-33.0); MCHC 34.3 % (32.0-36.0); MCV 93 fL (80-95); MPV 12.4 fL (8.0-11.0); RBC 2.90 10^6/uL (4.36-5.78); RDW 13.3 % (11.8-14.1); RDW-SD 46.0 fL; WBC 2.62 10^3/uL (4.4-10.8)
[2025-08-25 15:11] LABS: Platelet Count 40 10^3/uL (130-400); RBC Morphology Normal
[2025-08-25 15:20] LABS: Iron 206 ug/dL (65-175); Total Iron Binding Capacity 193 ug/dL (250-450); Transferrin Sat 107 % (20-55)
[2025-08-25 15:46] LABS: Ferritin 118 ng/mL (26-388); Vitamin B12 714 pg/mL (193-986)
[2025-08-25 15:47] LABS: Folate > 20.0 ng/mL (8.6-20.0)
== END 2025-08-25 11:24 | disposition home or self-care (01) ==
LOC: NCHCN 11:23
PROVIDERS: PCP Student in an Organized Health Care Education/Training Program; Visit Provider Student in an Organized Health Care Education/Training Program
DX: D64.9 Anemia, unspecified (principal)
CPT/HCPCS: 82607; 82728; 82746; 83540; 83550; 85025

== ENCOUNTER 2025-10-04 10:51 | Outpatient (REF) | payer MEDICARE, SELFPAY ==
[2025-10-04 16:00] LABS: Abs Immature Grans 0.01 10^3/uL (0.0-0.06); HCT 26.8 % (40.0-50.0); HGB 8.9 g/dL (13.5-17.5); Immature Grans % 0.3 %; MCH 31.4 pg (27.0-33.0); MCHC 33.2 % (32.0-36.0); MCV 95 fL (80-95); MPV 12.7 fL (8.0-11.0); RBC 2.83 10^6/uL (4.36-5.78); RDW 13.8 % (11.8-14.1); RDW-SD 48.3 fL; WBC 3.01 10^3/uL (4.4-10.8)
[2025-10-04 16:09] LABS: Iron 67 ug/dL (65-175); Total Iron Binding Capacity 260 ug/dL (250-425)
[2025-10-04 16:15] LABS: Ferritin 59 ng/mL (11-307)
[2025-10-04 16:18] LABS: Platelet Count 44 10^3/uL (130-400); RBC Morphology Normal
== END 2025-10-04 10:52 | disposition home or self-care (01) ==
LOC: NCHCN 10:51
PROVIDERS: PCP Student in an Organized Health Care Education/Training Program; Visit Provider Student in an Organized Health Care Education/Training Program
DX: D50.0 Iron deficiency anemia secondary to blood loss (chronic) (principal)
CPT/HCPCS: 82728; 83540; 83550; 85025

== ENCOUNTER → 2025-10-07 12:34 | Outpatient (BNVA) | payer MEDICARE, SELFPAY | PROVIDERS: PCP Student in an Organized Health Care Education/Training Program; Referring Provider Student in an Organized Health Care Education/Training Program; Visit Provider Urology | DX: C67.9 Malignant neoplasm of bladder, unspecified (principal) | CPT/HCPCS: 52000 ==